=== PATIENT | female | born 1940 | race Caucasian/White ===

== ENCOUNTER 2016-09-06 19:18 | Emergency (ER) | payer MEDICARE, MEDICAID ==
--- NOTE | 2016-09-06 19:24 | EDM.PDOC ---
ED HPI GENERAL MEDICAL PROBLEM - General Chief Complaint: Abdominal Pain Stated Complaint: ABDOMINAL PAIN Time Seen by Provider: 09/06/16 19:24 - History of Present Illness INITIAL COMMENTS - FREE TEXT/NARRATIVE: 76-year-old female presents emergency room today with abdominal pain. This pain started after eating lunch today. The patient was eating a primary sandwich could not finish it just lost her appetite. Since this time she developed some abdominal discomfort. This discomfort is not associated with any nausea vomiting constipation or diarrhea. Patient a normal BM yesterday. Denies any burning or frequency with urination. She is currently treated for dyspepsia takes omeprazole daily she is not have any problems with this. Patient awoke this morning feeling just fine didn't have any problems at all through the morning. Past medical history significant for COPD diabetes type 2 hyperlipidemia hypertension. She's currently treated for dyspepsia. Past surgical history significant for a hysterectomy. He has chronic kidney disease and is followed by Dr. Monreal. Abdominal Pain Score (Numeric/FACES): 8 - Related Data Allergies Allergy/AdvReac Type Severity Reaction Status Date / Time Penicillins Allergy Rash Verified 09/06/16 19:28 Home Meds: Home Meds Albuterol/Ipratropium [DuoNeb 3.0-0.5 MG/3 ML] 1 dose INH BID 03/12/14 [History] Allopurinol [Zyloprim] 300 mg PO DAILY 03/12/14 [History] Aspirin [Ruben Chewable Aspirin] 81 mg PO DAILY 03/12/14 [History] Lisinopril 20 mg PO DAILY 03/12/14 [History] Nitroglycerin [Nitrostat] 0.4 mg PO ASDIRECTED PRN 03/12/14 [History] amLODIPine [Norvasc] 5 mg PO DAILY 03/12/14 [History] atorvaSTATin [Lipitor] 20 mg PO BEDTIME 03/12/14 [History] Atenolol [Tenormin] 50 mg PO DAILY 09/11/14 [History] Docusate Sodium [Colace] 100 mg PO BID 09/11/14 [History] Furosemide 80 mg PO DAILY 09/11/14 [History] Mometasone Furoate [Asmanex 220 MCG] 1 puff INH BID 09/11/14 [History] Omeprazole [Prilosec] 20 mg PO DAILY 09/11/14 [History] Potassium Chloride 10 meq PO DAILY 09/11/14 [History] Albuterol [Proventil HFA] 6.7 gm INH DAILY 09/19/15 [History] metFORMIN [Glucophage] 500 mg PO DAILY 09/19/15 [History] Past Medical History Other HEENT History: wears eyeglasses Cardiovascular History: Reports: CAD, High Cholesterol, Hypertension Respiratory History: Reports: COPD, Pneumonia, Recurrent Other Respiratory History: Has oxygen at home at night - 1.5 L per NC. 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: Musculoskeletal History: Reports: Gout Other Musculoskeletal History: sciatica Psychiatric History: Reports: Anxiety, Depression Endocrine/Metabolic History: Reports: Diabetes, Type II, Obesity/BMI 30+ Dermatologic History: Reports: Eczema Other Dermatologic History: eczema - Past Surgical History HEENT Surgical History: Reports: Cataract Surgery Cardiovascular Surgical History: Reports: Coronary Artery Stent, Percutaneous Transluminal Angioplasty GI Surgical History: Reports: Colonoscopy, Hernia Repair/Other Musculoskeletal Surgical History: Reports: Carpal Tunnel Social & Family History - Tobacco Use Smoking Status *Q: Former Smoker Years of Tobacco use: 30 Packs/Tins Daily: 1 Used Tobacco, but Quit: Yes Month Tobacco Last Used: 1999 Second Hand Smoke Exposure: No - Recreational Drug Use Recreational Drug Use: No - Living Situation & Occupation Living situation: Reports: , Alone Occupation: Retired ED ROS GENERAL - Review of Systems Review Of Systems: See Below Constitutional: Reports: No Symptoms. Denies: Fever, Chills HEENT: Reports: No Symptoms Respiratory: Reports: No Symptoms Cardiovascular: Reports: No Symptoms GI/Abdominal: Reports: Abdominal Pain. Denies: Constipation, Diarrhea, Nausea, Vomiting : Reports: No Symptoms Musculoskeletal: Reports: No Symptoms Skin: Reports: No Symptoms Neurological: Reports: No Symptoms Psychiatric: Reports: No Symptoms ED EXAM, GI/ABD - Physical Exam Exam: See Below Exam Limited By: No Limitations General Appearance: Alert, No Apparent Distress Head: Atraumatic, Normocephalic Neck: Normal Inspection, Supple, Non-Tender, Full Range of Motion Respiratory/Chest: No Respiratory Distress, Lungs Clear, Normal Breath Sounds Cardiovascular: Regular Rate, Rhythm, No Edema, No Murmur GI/Abdominal Exam: Normal Bowel Sounds, Soft, Other (On exam patient has lower quadrant and suprapubic discomfort bilaterally minimal upper quadrant discomfort ). No: Guarding, Rigid, Rebound, Tender Back Exam: Normal Inspection. No: CVA Tenderness (L), CVA Tenderness (R) Extremities: Normal Inspection, No Pedal Edema Neurological: Alert, Oriented, Normal Cognition Psychiatric: Normal Affect, Normal Mood Skin Exam: Warm, Dry, Intact Course - Vital Signs Last Recorded V/S: Last Vital Signs Temp 36.9 C 09/06/16 19:25 Pulse 58 L 09/06/16 19:25 Resp 18 09/06/16 19:25 BP 167/73 H 09/06/16 19:25 Pulse Ox 96 09/06/16 19:25 - Orders/Labs/Meds Orders: Active Orders 24 hr Category Date Time Status EKG Documentation Completion [RC] STAT Care 09/06/16 19:48 Active Abdomen 2V AP Flat Upright [CR] Stat Exams 09/06/16 19:49 Taken Chest 1V Frontal [CR] Stat Exams 09/06/16 19:48 Taken Lactated Ringers [Ringers, Lactated] 1,000 ml Med 09/06/16 20:15 Active IV ASDIRECTED Medication Orders Lactated Ringer's (Ringers, Lactated) 1,000 mls @ 75 mls/hr IV ASDIRECTED ULCI Last Admin: 09/06/16 20:23 Dose: 75 mls/hr Labs: Laboratory Tests 09/06/16 09/06/16 09/06/16 Range/Units 20:15 20:15 20:15 WBC 14.11 H (3.98-10.04) K/mm3 RBC 4.73 (3.98-5.22) M/mm3 Hgb 14.0 (11.2-15.7) gm/L Hct 43.5 (34.1-44.9) % MCV 92.0 (79.4-94.8) fl MCH 29.6 (25.6-32.2) pg MCHC 32.2 (32.2-35.5) g/dl RDW Std Deviation 52.7 H (36.4-46.3) fL Plt Count 260 (182-369) K/mm3 MPV 11.1 (9.4-12.3) fl Neutrophils % (Manual) 66 H (40-60) % Band Neutrophils % 0 (0-10) % Lymphocytes % (Manual) 25 (20-40) % Atypical Lymphs % 0 % Monocytes % (Manual) 5 (2-10) % Eosinophils % (Manual) 3 (0.7-5.8) % Basophils % (Manual) 1 (0.1-1.2) Platelet Estimate Adequate Poikilocytosis 1+ slight Anisocytosis 1+ slight Ovalocytes 1+ slight RBC Morph Comment Not Reportable Sodium 141 (136-145) mEq/L Potassium 3.9 (3.5-5.1) mEq/L Chloride 104 (98-107) mEq/L Carbon Dioxide 30 (21-32) mEq/L Anion Gap 10.9 (5-15) BUN 26 H (7-18) mg/dL Creatinine 1.4 H (0.55-1.02) mg/dL Est Cr Clr Drug Dosing 31.24 mL/min Estimated GFR (MDRD) 37 (>60) mL/min BUN/Creatinine Ratio 18.6 H (14-18) Glucose 119 H (83-115) mg/dL Calcium 10.6 H (8.5-10.1) mg/dL Magnesium 1.6 L (1.8-2.4) mg/dl Total Bilirubin 0.5 (0.2-1.0) mg/dL AST 52 H (15-37) U/L ALT 52 (14-59) U/L Alkaline Phosphatase 95 (46-116) U/L Troponin I < 0.017 (0.00-0.056) ng/mL Total Protein 8.2 (6.4-8.2) g/dl Albumin 3.5 (3.4-5.0) g/dl Globulin 4.7 gm/dL Albumin/Globulin Ratio 0.7 L (1-2) Lipase 117 (73-393) U/L Urine Color (Yellow) Urine Appearance (Clear) Urine pH (5.0-8.0) Ur Specific Sears (1.005-1.030) Urine Protein (Negative) Urine Glucose (UA) (Negative) Urine Ketones (Negative) Urine Occult Blood (Negative) Urine Nitrite (Negative) Urine Bilirubin (Negative) Urine Urobilinogen (0.2-1.0) Ur Leukocyte Esterase (Negative) Urine RBC (0-5) /hpf Urine WBC (0-5) /hpf Ur Epithelial Cells (0-5) /hpf Urine Bacteria (FEW) /hpf Urine Mucus (FEW) /hpf 09/06/16 Range/Units 21:50 WBC (3.98-10.04) K/mm3 RBC (3.98-5.22) M/mm3 Hgb (11.2-15.7) gm/L Hct (34.1-44.9) % MCV (79.4-94.8) fl MCH (25.6-32.2) pg MCHC (32.2-35.5) g/dl RDW Std Deviation (36.4-46.3) fL Plt Count (182-369) K/mm3 MPV (9.4-12.3) fl Neutrophils % (Manual) (40-60) % Band Neutrophils % (0-10) % Lymphocytes % (Manual) (20-40) % Atypical Lymphs % % Monocytes % (Manual) (2-10) % Eosinophils % (Manual) (0.7-5.8) % Basophils % (Manual) (0.1-1.2) Platelet Estimate Poikilocytosis Anisocytosis Ovalocytes RBC Morph Comment Sodium (136-145) mEq/L Potassium (3.5-5.1) mEq/L Chloride (98-107) mEq/L Carbon Dioxide (21-32) mEq/L Anion Gap (5-15) BUN (7-18) mg/dL Creatinine (0.55-1.02) mg/dL Est Cr Clr Drug Dosing mL/min Estimated GFR (MDRD) (>60) mL/min BUN/Creatinine Ratio (14-18) Glucose (83-115) mg/dL Calcium (8.5-10.1) mg/dL Magnesium (1.8-2.4) mg/dl Total Bilirubin (0.2-1.0) mg/dL AST (15-37) U/L ALT (14-59) U/L Alkaline Phosphatase (46-116) U/L Troponin I (0.00-0.056) ng/mL Total Protein (6.4-8.2) g/dl Albumin (3.4-5.0) g/dl Globulin gm/dL Albumin/Globulin Ratio (1-2) Lipase (73-393) U/L Urine Color Yellow (Yellow) Urine Appearance Clear (Clear) Urine pH 5.5 (5.0-8.0) Ur Specific Sears 1.015 (1.005-1.030) Urine Protein Negative (Negative) Urine Glucose (UA) Negative (Negative) Urine Ketones Negative (Negative) Urine Occult Blood Negative (Negative) Urine Nitrite Negative (Negative) Urine Bilirubin Negative (Negative) Urine Urobilinogen 0.2 (0.2-1.0) Ur Leukocyte Esterase Negative (Negative) Urine RBC 0-5 (0-5) /hpf Urine WBC 0-5 (0-5) /hpf Ur Epithelial Cells 5-10 H (0-5) /hpf Urine Bacteria Few (FEW) /hpf Urine Mucus Few (FEW) /hpf Meds: Medications Generic Name Dose Route Start Last Admin Trade Name Freq PRN Reason Stop Dose Admin Lactated Ringer's 1,000 mls @ 75 mls/hr 09/06/16 20:15 09/06/16 20:23 Ringers, Lactated IV 75 mls/hr ASDIRECTED LUCI Administration Discontinued Medications Generic Name Dose Route Start Last Admin Trade Name Freq PRN Reason Stop Dose Admin Hydromorphone HCl 0.25 mg 09/06/16 20:04 09/06/16 20:26 Dilaudid IVPUSH 09/06/16 20:05 0.25 mg ONETIME ONE Administration Ondansetron HCl 4 mg 09/06/16 20:04 09/06/16 20:24 Zofran IVPUSH 09/06/16 20:05 4 mg ONETIME ONE Administration - Re-Assessments/Exams Free Text/Narrative Re-Assessment/Exam: 09/06/16 21:40 Labs nondiagnostic white count slightly elevated at 14,000 no bandemia. Patient had one emesis and is felt much better ever since then she is pain-free at this time awaiting urinalysis. 09/06/16 22:49 Her abdominal pain has not returned urinalysis looks good. We will discharge home. Departure - Departure Time of Disposition: 22:50 Disposition: Home, Self-Care 01 Clinical Impression: Resolved abdominal pain - Discharge Information Additional Instructions: Return to the emergency room with any questions or problems or worsening symptoms. Clear liquid diet for the next 12 hours then slowly advance as tolerated. Return to the emergency room if getting worse or not completely better in 12-24 hours - My Orders Last 24 Hours: My Active Orders 09/06/16 19:48 EKG Documentation Completion [RC] STAT Chest 1V Frontal [CR] Stat 09/06/16 19:49 Abdomen 2V AP Flat Upright [CR] Stat 09/06/16 20:15 Lactated Ringers [Ringers, Lactated] 1,000 ml IV ASDIRECTED - Assessment/Plan Last 24 Hours: My Active Orders 09/06/16 19:48 EKG Documentation Completion [RC] STAT Chest 1V Frontal [CR] Stat 09/06/16 19:49 Abdomen 2V AP Flat Upright [CR] Stat 09/06/16 20:15 Lactated Ringers [Ringers, Lactated] 1,000 ml IV ASDIRECTED
[2016-09-06 19:28] VITALS: BP 167/73
[2016-09-06] MEDS ORDERED: HYDROmorphone 1 MG/ML Syringe IVPUSH ONE (20:04)
[2016-09-06] MEDS ORDERED: Ondansetron 4 MG/2 ML SDV IVPUSH ONE (20:04)
[2016-09-06] MEDS ORDERED: Lactated Ringers 1,000 ML IV SCH (20:15)
--- NOTE | 2016-09-07 07:38 | CR ---
Abdomen: Supine and upright views of the abdomen were obtained. Comparison: Previous abdominal series of 09/19/11. Scoliosis and degenerative change is noted within the spine. Vascular calcification is seen. Slight degenerative sclerosis is noted within the left sacroiliac joint. Bowel gas pattern appears normal. No free air is seen. No discrete soft tissue abnormality is appreciated. Small hiatal hernia is seen. Impression: 1. Incidental findings. Nothing acute is identified. Diagnostic code #2
--- NOTE | 2016-09-07 07:38 | CR ---
Chest: Frontal view of the chest was obtained. Comparison: Previous chest x-ray of 09/19/15. Heart size is normal. Tortuous thoracic aorta is seen. Small hiatal hernia is noted. Lungs are clear with no acute infiltrates. Bony structures are grossly intact. Impression: 1. Findings as noted above. Nothing acute is seen on frontal chest x-ray. Diagnostic code #2
== END 2016-09-06 23:10 | disposition home or self-care (01) ==
LOC: JD.ED 19:18
DX: R10.10 Upper abdominal pain, unspecified (principal); R10.30 Lower abdominal pain, unspecified; E11.9 Type 2 diabetes mellitus without complications; I10 Essential (primary) hypertension; I25.10 Atherosclerotic heart disease of native coronary artery without angina pectoris; K21.9 Gastro-esophageal reflux disease without esophagitis; I12.9 Hypertensive chronic kidney disease with stage 1 through stage 4 chronic kidney disease, or unspecified chronic kidney disease; N18.9 Chronic kidney disease, unspecified; F41.9 Anxiety disorder, unspecified; F32.9 Major depressive disorder, single episode, unspecified; E66.9 Obesity, unspecified; Z79.82 Long term (current) use of aspirin; Z79.84 Long term (current) use of oral hypoglycemic drugs; Z88.0 Allergy status to penicillin; Z87.01 Personal history of pneumonia (recurrent); Z79.899 Other long term (current) drug therapy; Z87.891 Personal history of nicotine dependence; J44.9 Chronic obstructive pulmonary disease, unspecified
CPT/HCPCS: 36415; 71010; 74020; 80053; 81001; 83690; 83735; 84484; 85025; 93005; 96361; 96374; 96375; 99284; J1170; J2405; J7120

== ENCOUNTER 2017-04-17 18:01 | Inpatient (IN) | payer MEDICARE, MEDICAID ==
[2017-04-17] MEDS ORDERED: Sodium Chloride 0.9% 10 ML Syringe FLUSH PRN (18:28)
[2017-04-17] MEDS ORDERED: Albuterol/Ipratropium 3.0-0.5 MG/3 ML Neb Soln NEB ONE (18:49)
[2017-04-17] MEDS ORDERED: Albuterol/Ipratropium 3.0-0.5 MG/3 ML Neb Soln ONE (18:57)
--- NOTE | 2017-04-17 19:43 | EDM.PDOC ---
ED HPI GENERAL MEDICAL PROBLEM - General Chief Complaint: Respiratory Problem Stated Complaint: [facility] Time Seen by Provider: 04/17/17 18:27 Source of Information: Reports: Patient, EMS, RN Notes Reviewed - History of Present Illness INITIAL COMMENTS - FREE TEXT/NARRATIVE: 76 year lady brought to ED by EMS for evaluation of worsening cough that started about 4 days ago, increased difficulty breathing, hypoxia associated with generalized weakness. Has also had decreased appetite, nausea, has vomited at least once today. Hx of COPD, normally uses oxygen at night and with activity. Now short of breath even with the oxygen. No chest or abd pain at this time. Cough has been mostly nonprod. - Related Data Allergies Allergy/AdvReac Type Severity Reaction Status Date / Time Penicillins Allergy Swelling Verified 04/18/17 00:37 Home Meds: Home Meds Albuterol/Ipratropium [DuoNeb 3.0-0.5 MG/3 ML] 1 dose INH BID 03/12/14 [History] Allopurinol [Zyloprim] 300 mg PO DAILY 03/12/14 [History] Aspirin [Ruben Chewable Aspirin] 81 mg PO DAILY 03/12/14 [History] Lisinopril 20 mg PO DAILY 03/12/14 [History] Nitroglycerin [Nitrostat] 0.4 mg PO ASDIRECTED PRN 03/12/14 [History] amLODIPine [Norvasc] 5 mg PO DAILY 03/12/14 [History] atorvaSTATin [Lipitor] 40 mg PO BEDTIME 03/12/14 [History] Docusate Sodium [Colace] 100 mg PO BID 09/11/14 [History] Furosemide 40 mg PO DAILY 09/11/14 [History] Mometasone Furoate [Asmanex 220 MCG] 1 puff INH BID 09/11/14 [History] Potassium Chloride 10 meq PO DAILY 09/11/14 [History] metFORMIN [Glucophage] 500 mg PO DAILY 09/19/15 [History] Atenolol [Tenormin] 50 mg PO DAILY 04/17/17 [History] Cholecalciferol (Vitamin D3) [Vitamin D3] 1,000 mg PO DAILY 04/17/17 [History] Esomeprazole Magnesium [Nexium] 20 mg PO DAILY 04/17/17 [History] Sertraline [Zoloft] 25 mg PO DAILY 04/17/17 [History] Albuterol [Proventil HFA] 2 puff INH Q6H PRN 04/18/17 [History] Past Medical History Other HEENT History: wears eyeglasses Cardiovascular History: Reports: Angina, CAD, High Cholesterol, Hypertension Respiratory History: Reports: COPD, Pneumonia, Recurrent Other Respiratory History: Has oxygen at home at night - 2 L per NC. Gastrointestinal History: Reports: GERD, Irritable Bowel Syndrome Genitourinary History: Reports: Chronic Renal Insuffiency Other Genitourinary History: renal disease [employer] History: Reports: Other OB/BYN History: hysterectomy Musculoskeletal History: Reports: Arthritis, Gout Other Musculoskeletal History: sciatica Psychiatric History: Reports: Anxiety, Depression Endocrine/Metabolic History: Reports: Diabetes, Type II, Obesity/BMI 30+ Dermatologic History: Reports: Eczema Other Dermatologic History: eczema - Infectious Disease History Infectious Disease History: Reports: Influenza - Past Surgical History HEENT Surgical History: Reports: Cataract Surgery Cardiovascular Surgical History: Reports: Coronary Artery Stent, Percutaneous Transluminal Angioplasty GI Surgical History: Reports: Colonoscopy, Hernia Repair/Other Musculoskeletal Surgical History: Reports: Carpal Tunnel Social & Family History - Family History Family Medical History: Noncontributory - Tobacco Use Smoking Status *Q: Former Smoker Years of Tobacco use: 20 Packs/Tins Daily: 1 Used Tobacco, but Quit: Yes Month/Year Tobacco Last Used: 1989 Second Hand Smoke Exposure: No - Caffeine Use Caffeine Use: Reports: Coffee - Recreational Drug Use Recreational Drug Use: No - Living Situation & Occupation Living situation: Reports: , Alone Occupation: Retired ED ROS GENERAL - Review of Systems Review Of Systems: See Below Constitutional: Reports: Fever, Chills. Denies: Diaphoresis HEENT: Denies: Sinus Problem, Throat Pain Respiratory: Reports: Shortness of Breath, Wheezing ED EXAM, GENERAL - Physical Exam Exam: See Below General Appearance: Alert, Mild Distress Eye Exam: Bilateral Eye: PERRL Throat/Mouth: Normal Inspection, Normal Oropharynx Head: Atraumatic. No: Facial Swelling Neck: Supple, Full Range of Motion Respiratory/Chest: Respiratory Distress (moderate tachypnea). No: Rales, Rhonchi, Wheezing Cardiovascular: Regular Rate, Rhythm GI/Abdominal: Soft, Non-Tender Extremities: Normal Inspection. No: Leg Pain, Increased Warmth, Redness Neurological: Oriented, No Motor/Sensory Deficits Skin Exam: Warm, Dry, Normal Color, No Rash EKG INTERPRETATION EKG Date: 04/17/17 Rhythm: Other (Sinus rythm with vent. trigeminy) Rate (Beats/Min): 71 P-Wave: Present QRS: Other (conduction delay with q 3 PVC's) ST-T: Other (t wave inversion anterior leads) Course - Vital Signs Last Recorded V/S: Last Vital Signs Temp 98.2 F 04/20/17 08:37 Pulse 89 04/20/17 08:37 Resp 16 04/20/17 08:37 BP 115/85 04/20/17 08:37 Pulse Ox 97 04/20/17 09:36 - Orders/Labs/Meds Orders: Medication Orders Acetaminophen (Tylenol) 650 mg PO Q6H PRN PRN Reason: Pain/Fever Last Admin: 04/18/17 11:34 Dose: 650 mg Albuterol (Proventil Neb Soln) 2.5 mg NEB Q4HRRT PRN PRN Reason: Shortness of Breath Last Admin: 04/18/17 04:23 Dose: 2.5 mg Albuterol/Ipratropium (Duoneb 3.0-0.5 Mg/3 Ml) 3 ml NEB QIDRT [facility] Last Admin: 04/20/17 09:34 Dose: 3 ml Admin: 04/20/17 05:37 Dose: 3 ml Admin: 04/19/17 20:17 Dose: 3 ml Admin: 04/19/17 15:37 Dose: 3 ml Admin: 04/19/17 10:27 Dose: 3 ml Admin: 04/19/17 06:15 Dose: 3 ml Admin: 04/18/17 21:01 Dose: 3 ml Admin: 04/18/17 16:22 Dose: 3 ml Admin: 04/18/17 09:56 Dose: 3 ml Admin: 04/18/17 06:36 Dose: 3 ml Admin: 04/17/17 23:19 Dose: 3 ml Allopurinol (Zyloprim) 300 mg PO DAILY [facility] Last Admin: 04/20/17 08:44 Dose: 300 mg Amlodipine Besylate (Norvasc) 5 mg PO DAILY [facility] Last Admin: 04/20/17 08:44 Dose: 5 mg Aspirin (Aspirin) 81 mg PO DAILY [facility] Last Admin: 04/20/17 08:44 Dose: 81 mg Atenolol (Tenormin) 50 mg PO DAILY [facility] Last Admin: 04/20/17 08:43 Dose: 50 mg Calcium Carbonate/Glycine (Tums) 1,000 mg PO Q4H PRN PRN Reason: Indigestion Last Admin: 04/20/17 08:40 Dose: 1,000 mg Dextrose/Water (Dextrose 50% In Water) 50 ml IVPUSH ASDIRECTED PRN PRN Reason: Hypoglycemia Docusate Sodium (Colace) 100 mg PO BID [facility] Last Admin: 04/20/17 08:44 Dose: 100 mg Admin: 04/19/17 22:16 Dose: 100 mg Admin: 04/19/17 09:44 Dose: 100 mg Admin: 04/18/17 21:52 Dose: 100 mg Admin: 04/18/17 11:23 Dose: 100 mg Doxycycline Hyclate (Vibramycin) 100 mg PO Q12H [facility] Last Admin: 04/19/17 22:16 Dose: 100 mg Admin: 04/19/17 10:09 Dose: 100 mg Admin: 04/18/17 21:59 Dose: 100 mg Admin: 04/18/17 11:24 Dose: 100 mg Hydralazine HCl (Apresoline) 20 mg IVPUSH Q4H PRN PRN Reason: Hypertension Last Admin: 04/20/17 03:56 Dose: 20 mg Insulin Aspart (Novolog) 0 unit SUBCUT QIDACANDBED [facility] PRN Reason: Protocol Last Admin: 04/20/17 08:39 Dose: 1 units Admin: 04/19/17 22:16 Dose: 4 units Lorazepam (Ativan) 2 mg IVPUSH Q4H PRN PRN Reason: Seizures Magnesium Sulfate (Pharmacy To Dose - Magnesium Replacement) 1 dose .XX ASDIRECTED [facility] Metformin HCl (Glucophage) 500 mg PO WITHBREAKFAST [facility] Last Admin: 04/20/17 07:10 Dose: 500 mg Admin: 04/19/17 06:01 Dose: 500 mg Admin: 04/18/17 11:23 Dose: 500 mg Methylprednisolone Sodium Succinate (Solu-Medrol) 40 mg IVPUSH Q12H [facility] Last Admin: 04/20/17 04:01 Dose: 40 mg Metoclopramide HCl (Reglan) 5 mg IVPUSH Q6H PRN PRN Reason: Nausea Last Admin: 04/19/17 01:06 Dose: 5 mg Metoprolol Tartrate (Lopressor) 5 mg IVPUSH Q4H PRN PRN Reason: Tachycardia Miscellaneous Information (Remove Patch) 0 ea TRDERM Q72H [facility] Mometasone Furoate (Asmanex 220 Mcg) 1 puff INH BIDRT [facility] Last Admin: 04/20/17 05:37 Dose: 1 puff Admin: 04/19/17 20:18 Dose: 1 puff Admin: 04/19/17 06:15 Dose: 1 puff Admin: 04/18/17 21:01 Dose: 1 puff Admin: 04/18/17 06:36 Dose: 1 puff Nitroglycerin (Nitrostat) 0.4 mg SL ASDIRECTED PRN PRN Reason: Chest Pain Ondansetron HCl (Zofran) 4 mg IVPUSH Q4H PRN PRN Reason: Nausea Last Admin: 04/18/17 23:53 Dose: 4 mg Admin: 04/18/17 02:42 Dose: 4 mg Pantoprazole Sodium (Protonix) 40 mg PO DAILY@0700 [facility] Last Admin: 04/20/17 07:10 Dose: 40 mg Admin: 04/19/17 06:01 Dose: 40 mg Admin: 04/18/17 06:37 Dose: 40 mg Potassium Chloride (Klor-Con 10) 10 meq PO DAILY [facility] Last Admin: 04/20/17 08:44 Dose: 10 meq Admin: 04/19/17 09:44 Dose: 10 meq Admin: 04/18/17 11:24 Dose: 10 meq Potassium Chloride (Pharmacy To Dose - Potassium Replacement) 1 dose .XX ASDIRECTED [facility] Scopolamine (Scopolamine) 1 each TRDERM Q72H PRN PRN Reason: Nausea Last Admin: 04/18/17 13:11 Dose: 1 each Sertraline HCl (Zoloft) 25 mg PO DAILY [facility] Last Admin: 04/20/17 08:44 Dose: 25 mg Admin: 04/19/17 09:45 Dose: 25 mg Admin: 04/18/17 11:25 Dose: 25 mg Sodium Chloride (Saline Flush) 10 ml FLUSH ASDIRECTED PRN PRN Reason: Keep Vein Open Last Admin: 04/17/17 20:14 Dose: 10 ml Temazepam (Restoril) 7.5 mg PO BEDTIME PRN PRN Reason: Insomnia Labs: Laboratory Tests 04/17/17 04/17/17 04/17/17 Range/Units 18:44 18:44 18:44 WBC 12.16 H (3.98-10.04) K/mm3 RBC 4.29 (3.98-5.22) M/mm3 Hgb 12.4 (11.2-15.7) gm/L Hct 39.7 (34.1-44.9) % MCV 92.5 (79.4-94.8) fl MCH 28.9 (25.6-32.2) pg MCHC 31.2 L (32.2-35.5) g/dl RDW Std Deviation 53.9 H (36.4-46.3) fL Plt Count 226 (182-369) K/mm3 MPV 10.8 (9.4-12.3) fl Neutrophils % (Manual) 81 H (40-60) % Band Neutrophils % 0 (0-10) % Lymphocytes % (Manual) 11 L (20-40) % Atypical Lymphs % 0 % Monocytes % (Manual) 7 (2-10) % Eosinophils % (Manual) 1 (0.7-5.8) % Basophils % (Manual) 0 L (0.1-1.2) Platelet Estimate Adequate RBC Morph Comment Normal Sodium 141 (136-145) mEq/L Potassium 4.4 (3.5-5.1) mEq/L Chloride 105 (98-107) mEq/L Carbon Dioxide 29 (21-32) mEq/L Anion Gap 11.4 (5-15) BUN 24 H (7-18) mg/dL Creatinine 1.4 H (0.55-1.02) mg/dL Est Cr Clr Drug Dosing 31.24 mL/min Estimated GFR (MDRD) 37 (>60) mL/min BUN/Creatinine Ratio 17.1 (14-18) Glucose 135 H (83-115) mg/dL Lactic Acid 1.4 (0.4-2.0) mmol/L Calcium 9.8 (8.5-10.1) mg/dL Magnesium (1.8-2.4) mg/dl Total Bilirubin 0.4 (0.2-1.0) mg/dL AST 28 (15-37) U/L ALT 24 (14-59) U/L Alkaline Phosphatase 52 (46-116) U/L Troponin I < 0.017 (0.00-0.056) ng/mL C-Reactive Protein (<1.0) mg/dL NT-Pro-B Natriuret Pep (0-450) pg/mL Total Protein 7.2 (6.4-8.2) g/dl Albumin 2.9 L (3.4-5.0) g/dl Globulin 4.3 gm/dL Albumin/Globulin Ratio 0.7 L (1-2) Mycoplasma pneumon IgM (NEGATIVE) 04/17/17 04/17/17 04/17/17 Range/Units 18:44 18:44 18:44 WBC (3.98-10.04) K/mm3 RBC (3.98-5.22) M/mm3 Hgb (11.2-15.7) gm/L Hct (34.1-44.9) % MCV (79.4-94.8) fl MCH (25.6-32.2) pg MCHC (32.2-35.5) g/dl RDW Std Deviation (36.4-46.3) fL Plt Count (182-369) K/mm3 MPV (9.4-12.3) fl Neutrophils % (Manual) (40-60) % Band Neutrophils % (0-10) % Lymphocytes % (Manual) (20-40) % Atypical Lymphs % % Monocytes % (Manual) (2-10) % Eosinophils % (Manual) (0.7-5.8) % Basophils % (Manual) (0.1-1.2) Platelet Estimate RBC Morph Comment Sodium (136-145) mEq/L Potassium (3.5-5.1) mEq/L Chloride (98-107) mEq/L Carbon Dioxide (21-32) mEq/L Anion Gap (5-15) BUN (7-18) mg/dL Creatinine (0.55-1.02) mg/dL Est Cr Clr Drug Dosing mL/min Estimated GFR (MDRD) (>60) mL/min BUN/Creatinine Ratio (14-18) Glucose (83-115) mg/dL Lactic Acid (0.4-2.0) mmol/L Calcium (8.5-10.1) mg/dL Magnesium (1.8-2.4) mg/dl Total Bilirubin (0.2-1.0) mg/dL AST (15-37) U/L ALT (14-59) U/L Alkaline Phosphatase (46-116) U/L Troponin I (0.00-0.056) ng/mL C-Reactive Protein 3.4 H* (<1.0) mg/dL NT-Pro-B Natriuret Pep 3283 H (0-450) pg/mL Total Protein (6.4-8.2) g/dl Albumin (3.4-5.0) g/dl Globulin gm/dL Albumin/Globulin Ratio (1-2) Mycoplasma pneumon IgM Positive H (NEGATIVE) 04/17/17 Range/Units 18:44 WBC (3.98-10.04) K/mm3 RBC (3.98-5.22) M/mm3 Hgb (11.2-15.7) gm/L Hct (34.1-44.9) % MCV (79.4-94.8) fl MCH (25.6-32.2) pg MCHC (32.2-35.5) g/dl RDW Std Deviation (36.4-46.3) fL Plt Count (182-369) K/mm3 MPV (9.4-12.3) fl Neutrophils % (Manual) (40-60) % Band Neutrophils % (0-10) % Lymphocytes % (Manual) (20-40) % Atypical Lymphs % % Monocytes % (Manual) (2-10) % Eosinophils % (Manual) (0.7-5.8) % Basophils % (Manual) (0.1-1.2) Platelet Estimate RBC Morph Comment Sodium (136-145) mEq/L Potassium (3.5-5.1) mEq/L Chloride (98-107) mEq/L Carbon Dioxide (21-32) mEq/L Anion Gap (5-15) BUN (7-18) mg/dL Creatinine (0.55-1.02) mg/dL Est Cr Clr Drug Dosing mL/min Estimated GFR (MDRD) (>60) mL/min BUN/Creatinine Ratio (14-18) Glucose (83-115) mg/dL Lactic Acid (0.4-2.0) mmol/L Calcium (8.5-10.1) mg/dL Magnesium 1.6 L (1.8-2.4) mg/dl Total Bilirubin (0.2-1.0) mg/dL AST (15-37) U/L ALT (14-59) U/L Alkaline Phosphatase (46-116) U/L Troponin I (0.00-0.056) ng/mL C-Reactive Protein (<1.0) mg/dL NT-Pro-B Natriuret Pep (0-450) pg/mL Total Protein (6.4-8.2) g/dl Albumin (3.4-5.0) g/dl Globulin gm/dL Albumin/Globulin Ratio (1-2) Mycoplasma pneumon IgM (NEGATIVE) Meds: Medications Generic Name Dose Route Start Last Admin Trade Name Freq PRN Reason Stop Dose Admin Acetaminophen 650 mg 04/17/17 22:18 04/18/17 11:34 Tylenol PO 650 mg Q6H PRN Administration Pain/Fever Albuterol 2.5 mg 04/17/17 22:17 04/18/17 04:23 Proventil Neb Soln NEB 2.5 mg Q4HRRT PRN Administration Shortness of Breath Albuterol/Ipratropium 3 ml 04/17/17 23:11 04/20/17 09:34 Duoneb 3.0-0.5 Mg/3 Ml NEB 3 ml QIDRT [facility] Administration Allopurinol 300 mg 04/20/17 09:00 04/20/17 08:44 Zyloprim PO 300 mg DAILY [facility] Administration Amlodipine Besylate 5 mg 04/20/17 09:00 04/20/17 08:44 Norvasc PO 5 mg DAILY [facility] Administration Aspirin 81 mg 04/20/17 09:00 04/20/17 08:44 Aspirin PO 81 mg DAILY [facility] Administration Atenolol 50 mg 04/20/17 09:00 04/20/17 08:43 Tenormin PO 50 mg DAILY [facility] Administration Calcium Carbonate/Glycine 1,000 mg 04/20/17 08:15 04/20/17 08:40 Tums PO 1,000 mg Q4H PRN Administration Indigestion Dextrose/Water 50 ml 04/17/17 22:20 Dextrose 50% In Water IVPUSH ASDIRECTED PRN Hypoglycemia Docusate Sodium 100 mg 04/18/17 09:00 04/20/17 08:44 Colace PO 100 mg BID [facility] Administration Doxycycline Hyclate 100 mg 04/18/17 11:00 04/19/17 22:16 Vibramycin PO 100 mg Q12H [facility] Administration Hydralazine HCl 20 mg 04/19/17 00:52 04/20/17 03:56 Apresoline IVPUSH 20 mg Q4H PRN Administration Hypertension Insulin Aspart 0 unit 04/19/17 22:00 04/20/17 08:39 Novolog SUBCUT 1 units QIDACANDBED [facility] Administration Protocol Lorazepam 2 mg 04/19/17 00:52 Ativan IVPUSH Q4H PRN Seizures Magnesium Sulfate 1 dose 04/19/17 01:00 Pharmacy To Dose - Magnesium Replacement .XX ASDIRECTED [facility] Metformin HCl 500 mg 04/18/17 07:00 04/20/17 07:10 Glucophage PO 500 mg WITHBREAKFAST [facility] Administration Methylprednisolone Sodium Succinate 40 mg 04/20/17 05:00 04/20/17 04:01 Solu-Medrol IVPUSH 40 mg Q12H [facility] Administration Metoclopramide HCl 5 mg 04/19/17 00:51 04/19/17 01:06 Reglan IVPUSH 5 mg Q6H PRN Administration Nausea Metoprolol Tartrate 5 mg 04/19/17 00:52 Lopressor IVPUSH Q4H PRN Tachycardia Miscellaneous Information 0 ea 04/21/17 13:00 Remove Patch TRDERM Q72H [facility] Mometasone Furoate 1 puff 04/18/17 06:00 04/20/17 05:37 Asmanex 220 Mcg INH 1 puff BIDRT [facility] Administration Nitroglycerin 0.4 mg 04/17/17 22:04 Nitrostat SL ASDIRECTED PRN Chest Pain Ondansetron HCl 4 mg 04/18/17 02:24 04/18/17 23:53 Zofran IVPUSH 4 mg Q4H PRN Administration Nausea Pantoprazole Sodium 40 mg 04/18/17 07:00 04/20/17 07:10 Protonix PO 40 mg DAILY@0700 [facility] Administration Potassium Chloride 10 meq 04/18/17 09:00 04/20/17 08:44 Klor-Con 10 PO 10 meq DAILY [facility] Administration Potassium Chloride 1 dose 04/19/17 01:00 Pharmacy To Dose - Potassium Replacement .XX ASDIRECTED [facility] Scopolamine 1 each 04/18/17 12:51 04/18/17 13:11 Scopolamine TRDERM 1 each Q72H PRN Administration Nausea Sertraline HCl 25 mg 04/18/17 09:00 04/20/17 08:44 Zoloft PO 25 mg DAILY [facility] Administration Sodium Chloride 10 ml 04/17/17 18:28 04/17/17 20:14 Saline Flush FLUSH 10 ml ASDIRECTED PRN Administration Keep Vein Open Temazepam 7.5 mg 04/17/17 22:17 Restoril PO BEDTIME PRN Insomnia Discontinued Medications Generic Name Dose Route Start Last Admin Trade Name Freq PRN Reason Stop Dose Admin Acetaminophen 975 mg 04/17/17 20:10 04/17/17 20:14 Tylenol PO 04/17/17 20:11 975 mg NOW ONE Administration Albuterol/Ipratropium 3 ml 04/17/17 18:49 04/17/17 18:54 Duoneb 3.0-0.5 Mg/3 Ml NEB 04/17/17 18:50 3 ml ONETIME ONE Administration Albuterol/Ipratropium Confirm 04/17/17 18:57 04/17/17 18:54 Duoneb 3.0-0.5 Mg/3 Ml Administered 04/17/17 18:58 Not Given Dose 3 ml .ROUTE .STK-MED ONE Albuterol/Ipratropium 3 ml 04/18/17 23:00 Duoneb 3.0-0.5 Mg/3 Ml [facility] QIDRT [facility] Doxycycline Hyclate Confirm 04/18/17 00:02 04/18/17 03:06 Vibramycin Administered 04/18/17 00:03 Not Given Dose 100 mg .ROUTE .STK-MED ONE Furosemide 20 mg 04/18/17 07:00 04/18/17 06:38 Lasix IVPUSH 04/18/17 07:01 20 mg ONETIME ONE Administration Hydralazine HCl 20 mg 04/17/17 22:23 Apresoline IVPUSH Q6H PRN Hypertension Levofloxacin/Dextrose 750 mg/ 150 mls @ 100 mls/hr 04/17/17 20:05 04/17/17 20 :11 Premix IV 04/17/17 21:34 100 mls/hr ONETIME ONE Administration Doxycycline Hyclate 100 mg/ 100 mls @ 100 mls/hr 04/17/17 23:00 04/18/17 11: 26 Sodium Chloride IV Not Given Q12HR [facility] Sodium Chloride 1,000 mls @ 100 mls/hr 04/17/17 22:30 04/18/17 00:19 Sodium Chloride 0.45% IV 04/18/17 10:30 100 mls/hr ASDIRECTED [facility] Administration Magnesium Sulfate 2 gm/ Premix 50 mls @ 25 mls/hr 04/19/17 00:52 04/19/17 01: 07 IV 04/19/17 02:51 25 mls/hr ONETIME ONE Administration Methylprednisolone Sodium Succinate 40 mg 04/19/17 01:00 04/19/17 17:11 Solu-Medrol IVPUSH 40 mg Q8H [facility] Administration Metoclopramide HCl 5 mg 04/18/17 08:15 04/18/17 13:18 Reglan IVPUSH 5 mg Q6H [facility] Administration Nitroglycerin 2.5 mg 04/20/17 08:25 04/20/17 08:43 Nitroglycerin PO 04/20/17 08:26 2.5 mg ONETIME ONE Administration Non-Formulary Medication 20 mg 04/18/17 09:00 Omeprazole PO DAILY [facility] Potassium Chloride 40 meq 04/19/17 01:15 04/19/17 01:19 Klor-Con M20 PO 04/19/17 01:16 40 meq ONETIME ONE Administration Potassium Chloride 20 meq 04/19/17 06:00 04/19/17 06:01 Klor-Con M20 PO 04/19/17 06:01 20 meq ONETIME ONE Administration - Re-Assessments/Exams Free Text/Narrative Re-Assessment/Exam: 04/17/17 20:03. Patient has small infiltrate developing RLL, rectal temp 102.6. O2 sats 87 % room air, low to mid 90's with 02 at 2 L NC. She feels less short of breath after Duoneb., she is type 2 diabetic, will hold off on steroids for now, blood culture times 1 obtained, WBC mildly elevated, will give tylenol, will start levaquin 750 mg IV. 04/17/17 20:09 Departure - Departure Time of Disposition: 19:55 Disposition: Admitted As Inpatient 67 Condition: Serious Clinical Impression: Hypoxia Pneumonia Qualifiers: Pneumonia type: due to unspecified organism Laterality: right Lung location: lower lobe of lung Qualified Code(s): J18.1 - Lobar pneumonia, unspecified organism - Discharge Information ED Communication - Discussed Case With (1) Discussed Case With (1): Admitting Provider (Dr Del Real, decision to admit at about 19:55.)
[2017-04-17] MEDS ORDERED: Levofloxacin/Dextrose 5%-Water 750 MG in Premix Bag 1 BAG IV ONE (20:05)
[2017-04-17] MEDS ORDERED: Acetaminophen 325 MG Tab PO ONE (20:10)
[2017-04-17] MEDS ORDERED: Nitroglycerin 0.4 MG Tab.SL SL PRN (22:04)
--- NOTE | 2017-04-17 22:07 | PCM.HP ---
H&P History of Present Illness - General Date of Service: 04/17/17 Source of Information: Family, Provider History Limitations: Reports: No Limitations - History of Present Illness Initial Comments - Free Text/Narative: 76 year old female with oxygen requirement, former tobacco use presents with cough with green sputum. Admits to fever and chills; has had nausea and vomiting for 3-4 days [employer]. Longstanding history includes COPD, she requires oxygen at night. Presumptive diagnosis is PNA, initial CXR is unremarkable. Labs pending: influenza and mycoplasma. Onset of Symptoms: Reports: Gradual Symptom Onset Date: 04/13/17 Duration of Symptoms: Reports: Day(s):, Getting Worse Location: Reports: Chest, Generalized Severity: Moderate Improves with: Reports: Medication Worsens with: Reports: None Context: Reports: Sick Contact (unknown) Associated Symptoms: Reports: Chest Pain, cough w sputum, Loss of Appetite, Malaise, Nausea/Vomiting, Shortness of Breath, Weakness - Related Data Allergies/Adverse Reactions: Allergies Allergy/AdvReac Type Severity Reaction Status Date / Time Penicillins Allergy Swelling Verified 04/18/17 00:37 Home Medications: Home Meds Albuterol/Ipratropium [DuoNeb 3.0-0.5 MG/3 ML] 1 dose INH BID 03/12/14 [History] Allopurinol [Zyloprim] 300 mg PO DAILY 03/12/14 [History] Aspirin [Ruben Chewable Aspirin] 81 mg PO DAILY 03/12/14 [History] Lisinopril 20 mg PO DAILY 03/12/14 [History] Nitroglycerin [Nitrostat] 0.4 mg PO ASDIRECTED PRN 03/12/14 [History] amLODIPine [Norvasc] 10 mg PO DAILY 03/12/14 [History] atorvaSTATin [Lipitor] 40 mg PO BEDTIME 03/12/14 [History] Docusate Sodium [Colace] 100 mg PO BID 09/11/14 [History] Furosemide 40 mg PO DAILY 09/11/14 [History] Mometasone Furoate [Asmanex 220 MCG] 1 puff INH BID 09/11/14 [History] Omeprazole [Prilosec] 20 mg PO DAILY 09/11/14 [History] Potassium Chloride 10 meq PO DAILY 09/11/14 [History] metFORMIN [Glucophage] 500 mg PO DAILY 09/19/15 [History] Atenolol [Tenormin] 50 mg PO DAILY 04/17/17 [History] Cholecalciferol (Vitamin D3) [Vitamin D3] 1,000 mg PO DAILY 04/17/17 [History] Esomeprazole Magnesium [Nexium] 20 mg PO DAILY 04/17/17 [History] Sertraline [Zoloft] 25 mg PO DAILY 04/17/17 [History] Past Medical History Other HEENT History: wears eyeglasses Cardiovascular History: Reports: Angina, CAD, High Cholesterol, Hypertension Respiratory History: Reports: COPD, Pneumonia, Recurrent Other Respiratory History: Has oxygen at home at night - 2 L per NC. Gastrointestinal History: Reports: GERD, Irritable Bowel Syndrome Genitourinary History: Reports: Chronic Renal Insuffiency Other Genitourinary History: renal disease [employer] History: Reports: Other OB/BYN History: hysterectomy Musculoskeletal History: Reports: Arthritis, Gout Other Musculoskeletal History: sciatica Psychiatric History: Reports: Anxiety, Depression Endocrine/Metabolic History: Reports: Diabetes, Type II, Obesity/BMI 30+ Dermatologic History: Reports: Eczema Other Dermatologic History: eczema - Infectious Disease History Infectious Disease History: Reports: Influenza - Past Surgical History HEENT Surgical History: Reports: Cataract Surgery Cardiovascular Surgical History: Reports: Coronary Artery Stent, Percutaneous Transluminal Angioplasty GI Surgical History: Reports: Colonoscopy, Hernia Repair/Other Musculoskeletal Surgical History: Reports: Carpal Tunnel Social & Family History - Family History Family Medical History: Noncontributory - Tobacco Use Smoking Status *Q: Former Smoker Years of Tobacco use: 20 Packs/Tins Daily: 1 Used Tobacco, but Quit: Yes Month Tobacco Last Used: 1989 Second Hand Smoke Exposure: No - Caffeine Use Caffeine Use: Reports: Coffee - Recreational Drug Use Recreational Drug Use: No - Living Situation & Occupation Living situation: Reports: , Alone Occupation: Retired H&P Review of Systems - Review of Systems: Review Of Systems: See Below General: Reports: Fever, Chills, Malaise, Weakness, Fatigue, Decreased Appetite HEENT: Reports: No Symptoms Pulmonary: Reports: Shortness of Breath, Wheezing, Pleuritic Chest Pain Cardiovascular: Reports: No Symptoms Gastrointestinal: Reports: No Symptoms Genitourinary: Reports: No Symptoms Musculoskeletal: Reports: No Symptoms Skin: Reports: No Symptoms Psychiatric: Reports: No Symptoms Neurological: Reports: No Symptoms Hematologic/Lymphatic: Reports: No Symptoms Immunologic: Reports: No Symptoms Exam - Exam Exam: See Below - Vital Signs Vital Signs: Last Vital Signs Temp 39.2 C H 04/17/17 20:14 Pulse 67 04/17/17 18:07 Resp 21 H 04/17/17 18:07 BP 147/60 H 04/17/17 18:07 Pulse Ox 96 04/17/17 18:49 Weight: 79.746 kg - Exam Quality Assessment: Supplemental Oxygen, DVT Prophylaxis General: Alert, Oriented, Cooperative HEENT: Conjunctiva Clear, Nares Patent, Normal Nasal Septum, Pupils Equal, Pupils Reactive, PERRLA Neck: Trachea Midline Lungs: Normal Respiratory Effort, Decreased Breath Sounds, Wheezing Cardiovascular: Regular Rate, Regular Rhythm GI/Abdominal Exam: Normal Bowel Sounds, Soft, Non-Tender, No Organomegaly, No Distention (Female) Exam: Deferred Rectal (Female) Exam: Deferred Back Exam: Normal Inspection Extremities: Normal Inspection, Non-Tender, Slow Capillary Refill Skin: Warm Neurological: Cranial Nerves Intact Neuro Extensive - Mental Status: Alert, Oriented x3, Normal Mood/Affect, Normal Cognition, Memory Intact Neuro Extensive - Motor, Sensory, Reflexes: CN II-XII Intact Psychiatric: Alert, Normal Affect, Normal Mood - Patient Data Result Diagrams: 04/18/17 05:12 04/18/17 05:12 *Q Meaningful Use (ADM) - VTE *Q VTE Criteria *Q: - Stroke *Q Stroke Criteria *Q: - AMI *Q AMI Criteria *Q: - Problem List (1) Hypoxia SNOMED Code(s): 960803689 ICD Code: R09.02 - HYPOXEMIA Status: Acute Current Visit: Yes (2) Pneumonia SNOMED Code(s): 287566754 ICD Code: J18.9 - PNEUMONIA, UNSPECIFIED ORGANISM Status: Acute Current Visit: Yes Qualifiers: Pneumonia type: due to unspecified organism Laterality: right Lung location: lower lobe of lung Qualified Code(s): J18.1 - Lobar pneumonia, unspecified organism (3) Chest pain SNOMED Code(s): 33302067 ICD Code: R07.9 - CHEST PAIN, UNSPECIFIED Status: Acute Current Visit: No (4) Chronic renal insufficiency SNOMED Code(s): 111127520 ICD Code: N18.9 - CHRONIC KIDNEY DISEASE, UNSPECIFIED Status: Acute Current Visit: No (5) Hypomagnesemia SNOMED Code(s): 670283217 ICD Code: E83.42 - HYPOMAGNESEMIA Status: Acute Current Visit: No Problem List Initiated/Reviewed/Updated: Yes Orders Last 24hrs: Active Orders 24 hr Category Date Time Status CXR [Chest 2V] [CR] Routine Exams 04/19/17 08:00 Ordered Docusate Sodium [Colace] Med 04/18/17 09:00 Ordered 100 mg PO BID Esomeprazole Magnesium [Nexium] Med 04/18/17 09:00 Ordered 20 mg PO DAILY Mometasone Furoate [Asmanex 220 MCG] Med 04/18/17 09:00 Ordered 1 puff INH BID Nitroglycerin [Nitrostat] Med 04/17/17 22:04 Ordered 0.4 mg SL ASDIRECTED PRN Omeprazole Med 04/18/17 09:00 Ordered 20 mg PO DAILY Potassium Chloride [Klor-Con 10] Med 04/18/17 09:00 Ordered 10 meq PO DAILY Sertraline [Zoloft] Med 04/18/17 09:00 Ordered 25 mg PO DAILY metFORMIN [Glucophage] Med 04/18/17 09:00 Ordered 500 mg PO DAILY Medication Orders Docusate Sodium (Colace) 100 mg PO BID [facility] Metformin HCl (Glucophage) 500 mg PO DAILY [facility] Mometasone Furoate (Asmanex 220 Mcg) 1 puff INH BID [facility] Nitroglycerin (Nitrostat) 0.4 mg SL ASDIRECTED PRN PRN Reason: Chest Pain Non-Formulary Medication (Esomeprazole Magnesium [Nexium]) 20 mg PO DAILY [facility] Non-Formulary Medication (Omeprazole) 20 mg PO DAILY [facility] Potassium Chloride (Klor-Con 10) 10 meq PO DAILY [facility] Sertraline HCl (Zoloft) 25 mg PO DAILY [facility] Sodium Chloride (Saline Flush) 10 ml FLUSH ASDIRECTED PRN PRN Reason: Keep Vein Open Last Admin: 04/17/17 20:14 Dose: 10 ml Assessment/Plan Comment:: Impression: --Acute respiratory distress, hypoxia--sick contact, unknown Empiric treatment for PNA, after admission: mycoplasma positive droplet isolation --COPD requires O2 at 2l/m --DM type II --CKD, acute on chronic --Abnormal electrolytes Chronic CAD HTN HLD IBS Former tobacco Plan: IVF ATB Isolation Correct electrolytes Home meds Dailly labs DVT/GI prophylaxis Consult PT/OT/(CM)
[2017-04-17] MEDS ORDERED: Albuterol 0.083% 2.5 MG/3 ML Neb Soln NEB PRN (22:17)
[2017-04-17] MEDS ORDERED: Temazepam 7.5 MG Cap PO PRN (22:17)
[2017-04-17] MEDS ORDERED: Acetaminophen 325 MG Tab PO PRN (22:18)
[2017-04-17] MEDS ORDERED: 50% Dextrose in Water 50 ML Syringe IVPUSH PRN (22:20)
[2017-04-17] MEDS ORDERED: hydrALAZINE 20 MG/ML SDV IVPUSH PRN (22:23)
[2017-04-17] MEDS ORDERED: Sodium Chloride 0.45% 1,000 ML IV SCH (22:30)
[2017-04-17] MEDS: Albuterol/Ipratropium 3.0-0.5 MG/3 ML Neb Soln NEB SCH (23:19)
[2017-04-18] MEDS ORDERED: Doxycycline 100 MG Vial ONE (00:02)
[2017-04-18] MEDS: Doxycycline 100 MG in Sodium Chloride 0.9% 100 ML IV SCH ×2 (00:15→11:26)
[2017-04-18] MEDS: Ondansetron 4 MG/2 ML SDV IVPUSH PRN ×2 (02:42→23:53)
[2017-04-18] MEDS: Albuterol/Ipratropium 3.0-0.5 MG/3 ML Neb Soln NEB SCH ×4 (06:36→21:01)
[2017-04-18] MEDS: Mometasone Furoate Powder 220 MCG/Puff 14 Dose Inhaler INH SCH ×2 (06:36→21:01)
[2017-04-18] MEDS: Pantoprazole 40 MG Tab.CR PO SCH (06:37)
[2017-04-18] MEDS ORDERED: Furosemide 20 MG/2 ML VIAL IVPUSH ONE (07:00)
--- NOTE | 2017-04-18 08:00 | CR ---
Chest: Frontal view of the chest was obtained. Comparison: Prior chest x-ray of 04/17/17. Heart size and mediastinum are normal. Tortuous thoracic aorta is seen with atherosclerotic calcification. Hiatal hernia is present. Lungs are clear. Bony structures are grossly intact. Impression: 1. Incidental findings. Nothing acute is seen on frontal chest x-ray. No change is seen from previous exam. Diagnostic code #2 Agree with preliminary report issued by [facility] ([facility] preliminary report dictated on 04/18/17, 6:16 AM Central Time)
--- NOTE | 2017-04-18 08:00 | CR ---
Abdomen: Supine view of the abdomen was obtained. Comparison: Prior abdominal x-ray of 09/18/11. Scoliosis and degenerative change are seen within the spine. Vascular calcification is identified. Bowel gas pattern is normal. No discrete soft tissue abnormality is seen. Impression: 1. Nonspecific supine abdominal x-ray. Nothing acute is seen. Diagnostic code #2 Agree with preliminary report issued by [facility] ([facility] preliminary report dictated on 04/18/17, 6:17 AM Central Time)
--- NOTE | 2017-04-18 08:00 | CR ---
Chest: Frontal view of the chest was obtained. Comparison: Prior chest x-ray of 09/06/16. Heart size is slightly enlarged. Tortuous thoracic aorta is seen. Atherosclerotic calcification is seen within the aortic knob. Small to moderate sized hiatal hernia is present. Lungs are clear. Bony structures are grossly intact. Impression: 1. Incidental findings. Nothing acute is appreciated on frontal chest x-ray. Diagnostic code #2
[2017-04-18] MEDS ORDERED: Non-Formulary Medication 1 Each (Esomeprazole Magnesium [Nexium] 20 MG) PO SCH (09:00)
[2017-04-18] MEDS ORDERED: Non-Formulary Medication 1 Each (Omeprazole 20 MG) PO SCH (09:00)
[2017-04-18] MEDS: metFORMIN 500 MG Tab PO SCH (11:23)
[2017-04-18] MEDS: Docusate Sodium 100 MG Cap PO SCH ×2 (11:23→21:52)
[2017-04-18] MEDS: Doxycycline 100 MG Cap PO SCH ×2 (11:24→21:59)
[2017-04-18] MEDS: Metoclopramide 10 MG/2 ML SDV IVPUSH SCH ×2 (11:24→13:18)
[2017-04-18] MEDS: Potassium Chloride 10 MEQ Tab.ER PO SCH (11:24)
[2017-04-18] MEDS: Sertraline 25 MG Tab PO SCH (11:25)
--- NOTE | 2017-04-18 11:34 | PCM.PN ---
- General Info Date of Service: 04/18/17 Admission Dx/Problem (Free Text): PNA Subjective Update: Follow Up Functional Status: Reports: Pain Controlled, Ambulating, Urinating, New Symptoms - Review of Systems General: Denies: Fever, Weakness, Fatigue, Malaise, Chills HEENT: Reports: No Symptoms Pulmonary: Reports: Wheezing. Denies: Shortness of Breath, Pleuritic Chest Pain , Cough, Sputum Cardiovascular: Denies: Chest Pain, Palpitations, Dyspnea on Exertion, Edema, Lightheadedness Gastrointestinal: Denies: Abdominal Pain, Decreased Appetite, Nausea, Vomiting Genitourinary: Reports: No Symptoms Musculoskeletal: Reports: No Symptoms Skin: Denies: Cyanosis, Mottled, Pallor, Diaphoresis, Pruritis Neurological: Denies: Confusion, Weakness Psychiatric: Denies: Depression, Anxiety, Agitation, Hallucinations Systems Review Comment:: She feels pretty good this morning. She is afebrile with increased WBC level. She has had multiple epsiode of nausea with emesis overnight. Her emesis has since resolved but still somewhat nauseous. She has no other complaints. - Patient Data Vitals - Most Recent: Last Vital Signs Temp 37.7 C 04/18/17 07:46 Pulse 100 04/18/17 07:46 Resp 20 04/18/17 07:46 BP 124/69 04/18/17 07:46 Pulse Ox 96 04/18/17 09:56 Weight - Most Recent: 79.746 kg I&O - Last 24 Hours: Intake & Output 04/17/17 04/18/17 04/18/17 22:59 06:59 14:59 Intake Total 856 Output Total 300 Balance 556 Lab Results Last 24 Hours: Laboratory Results - last 24 hr 04/18/17 04/18/17 04/18/17 Range/Units 05:12 05:12 05:12 WBC 18.52 H (3.98-10.04) K/mm3 RBC 4.17 (3.98-5.22) M/mm3 Hgb 12.1 (11.2-15.7) gm/L Hct 38.6 (34.1-44.9) % MCV 92.6 (79.4-94.8) fl MCH 29.0 (25.6-32.2) pg MCHC 31.3 L (32.2-35.5) g/dl RDW Std Deviation 54.2 H (36.4-46.3) fL Plt Count 192 (182-369) K/mm3 MPV 10.8 (9.4-12.3) fl Neut % (Auto) 82.0 H (34.0-71.1) % Lymph % (Auto) 7.0 L (19.3-51.7) % [place] % (Auto) 10.3 (4.7-12.5) % Eos % (Auto) 0.1 L (0.7-5.8) Baso % (Auto) 0.2 (0.1-1.2) % Neut # (Auto) 15.22 H (1.56-6.13) K/mm3 Lymph # (Auto) 1.29 (1.18-3.74) K/mm3 [place] # (Auto) 1.90 H (0.24-0.36) K/mm3 Eos # (Auto) 0.01 L (0.04-0.36) K/mm3 Baso # (Auto) 0.03 (0.01-0.08) K/mm3 Manual Slide Review Abnormal smear Sodium 137 (136-145) mEq/L Potassium 3.7 (3.5-5.1) mEq/L Chloride 102 (98-107) mEq/L Carbon Dioxide 24 (21-32) mEq/L Anion Gap 14.7 (5-15) BUN 24 H (7-18) mg/dL Creatinine 1.4 H (0.55-1.02) mg/dL Est Cr Clr Drug Dosing 31.24 mL/min Estimated GFR (MDRD) 37 (>60) mL/min BUN/Creatinine Ratio 17.1 (14-18) Glucose 172 H (83-115) mg/dL POC Glucose (83-110) mg/dL Hemoglobin A1c (4.50-6.20) % Lactic Acid 3.4 H (0.4-2.0) mmol/L Calcium 9.1 (8.5-10.1) mg/dL Magnesium 1.3 L (1.8-2.4) mg/dl Troponin I < 0.017 (0.00-0.056) ng/mL C-Reactive Protein 7.6 H* (<1.0) mg/dL 04/18/17 04/18/17 04/18/17 Range/Units 05:12 06:56 10:21 WBC (3.98-10.04) K/mm3 RBC (3.98-5.22) M/mm3 Hgb (11.2-15.7) gm/L Hct (34.1-44.9) % MCV (79.4-94.8) fl MCH (25.6-32.2) pg MCHC (32.2-35.5) g/dl RDW Std Deviation (36.4-46.3) fL Plt Count (182-369) K/mm3 MPV (9.4-12.3) fl Neut % (Auto) (34.0-71.1) % Lymph % (Auto) (19.3-51.7) % [place] % (Auto) (4.7-12.5) % Eos % (Auto) (0.7-5.8) Baso % (Auto) (0.1-1.2) % Neut # (Auto) (1.56-6.13) K/mm3 Lymph # (Auto) (1.18-3.74) K/mm3 [place] # (Auto) (0.24-0.36) K/mm3 Eos # (Auto) (0.04-0.36) K/mm3 Baso # (Auto) (0.01-0.08) K/mm3 Manual Slide Review Sodium (136-145) mEq/L Potassium (3.5-5.1) mEq/L Chloride (98-107) mEq/L Carbon Dioxide (21-32) mEq/L Anion Gap (5-15) BUN (7-18) mg/dL Creatinine (0.55-1.02) mg/dL Est Cr Clr Drug Dosing mL/min Estimated GFR (MDRD) (>60) mL/min BUN/Creatinine Ratio (14-18) Glucose (83-115) mg/dL POC Glucose 169 H 200 H (83-110) mg/dL Hemoglobin A1c 5.80 (4.50-6.20) % Lactic Acid (0.4-2.0) mmol/L Calcium (8.5-10.1) mg/dL Magnesium (1.8-2.4) mg/dl Troponin I (0.00-0.056) ng/mL C-Reactive Protein (<1.0) mg/dL Med Orders - Current: Current Medications Acetaminophen (Tylenol) 650 mg PO Q6H PRN PRN Reason: Pain/Fever Albuterol (Proventil Neb Soln) 2.5 mg NEB Q4HRRT PRN PRN Reason: Shortness of Breath Last Admin: 04/18/17 04:23 Dose: 2.5 mg Albuterol/Ipratropium (Duoneb 3.0-0.5 Mg/3 Ml) 3 ml NEB QIDRT [facility] Last Admin: 04/18/17 09:56 Dose: 3 ml Dextrose/Water (Dextrose 50% In Water) 50 ml IVPUSH ASDIRECTED PRN PRN Reason: Hypoglycemia Docusate Sodium (Colace) 100 mg PO BID [facility] Doxycycline Hyclate (Vibramycin) 100 mg PO Q12H [facility] Hydralazine HCl (Apresoline) 20 mg IVPUSH Q6H PRN PRN Reason: Hypertension Metformin HCl (Glucophage) 500 mg PO WITHBREAKFAST [facility] Metoclopramide HCl (Reglan) 5 mg IVPUSH Q6H [facility] Mometasone Furoate (Asmanex 220 Mcg) 1 puff INH BIDRT [facility] Last Admin: 04/18/17 06:36 Dose: 1 puff Nitroglycerin (Nitrostat) 0.4 mg SL ASDIRECTED PRN PRN Reason: Chest Pain Ondansetron HCl (Zofran) 4 mg IVPUSH Q4H PRN PRN Reason: Nausea Last Admin: 04/18/17 02:42 Dose: 4 mg Pantoprazole Sodium (Protonix) 40 mg PO DAILY@0700 [facility] Last Admin: 04/18/17 06:37 Dose: 40 mg Potassium Chloride (Klor-Con 10) 10 meq PO DAILY [facility] Sertraline HCl (Zoloft) 25 mg PO DAILY [facility] Sodium Chloride (Saline Flush) 10 ml FLUSH ASDIRECTED PRN PRN Reason: Keep Vein Open Last Admin: 04/17/17 20:14 Dose: 10 ml Temazepam (Restoril) 7.5 mg PO BEDTIME PRN PRN Reason: Insomnia Discontinued Medications Acetaminophen (Tylenol) 975 mg PO NOW ONE Stop: 04/17/17 20:11 Last Admin: 04/17/17 20:14 Dose: 975 mg Albuterol/Ipratropium (Duoneb 3.0-0.5 Mg/3 Ml) 3 ml NEB ONETIME ONE Stop: 04/17/17 18:50 Last Admin: 04/17/17 18:54 Dose: 3 ml Albuterol/Ipratropium (Duoneb 3.0-0.5 Mg/3 Ml) Confirm Administered Dose 3 ml .ROUTE .STK-MED ONE Stop: 04/17/17 18:58 Last Admin: 04/17/17 18:54 Dose: Not Given Albuterol/Ipratropium (Duoneb 3.0-0.5 Mg/3 Ml) 3 ml NEB QIDRT [facility] Doxycycline Hyclate (Vibramycin) Confirm Administered Dose 100 mg .ROUTE .STK- MED ONE Stop: 04/18/17 00:03 Last Admin: 04/18/17 03:06 Dose: Not Given Furosemide (Lasix) 20 mg IVPUSH ONETIME ONE Stop: 04/18/17 07:01 Last Admin: 04/18/17 06:38 Dose: 20 mg Levofloxacin/Dextrose 750 mg/ (Premix) 150 mls @ 100 mls/hr IV ONETIME ONE Stop: 04/17/17 21:34 Last Admin: 04/17/17 20:11 Dose: 100 mls/hr Doxycycline Hyclate 100 mg/ (Sodium Chloride) 100 mls @ 100 mls/hr IV Q12HR [facility] Last Admin: 04/18/17 00:15 Dose: 100 mls/hr Sodium Chloride (Sodium Chloride 0.45%) 1,000 mls @ 100 mls/hr IV ASDIRECTED [facility] Stop: 04/18/17 10:30 Last Admin: 04/18/17 00:19 Dose: 100 mls/hr Non-Formulary Medication (Omeprazole) 20 mg PO DAILY [facility] - Exam General: Alert, Oriented, Cooperative, No Acute Distress HEENT: Pupils Equal, Pupils Reactive, Mucous Membr. Moist/[place] Neck: Supple, Trachea Midline, No JVD Lungs: Normal Respiratory Effort, Decreased Breath Sounds, Rhonchi, Wheezing Cardiovascular: Regular Rate, Regular Rhythm GI/Abdominal Exam: Normal Bowel Sounds, Soft, Non-Tender, No Organomegaly, No Distention, No Abnormal Bruit, No Mass (Female) Exam: Deferred Back Exam: Normal Inspection, Decreased Range of Motion Extremities: Normal Inspection, Normal Range of Motion, Non-Tender, No Pedal Edema, Normal Capillary Refill Peripheral Pulses: 2+: Dorsalis Pedis (L), Dorsalis Pedis (R) Skin: Warm, Dry, Intact Neurological: No New Focal Deficit Psy/Mental Status: Alert, Normal Affect, Normal Mood - Problem List Review Problem List Initiated/Reviewed/Updated: Yes - My Orders Last 24 Hours: My Active Orders 04/18/17 11:00 Doxycycline [Vibramycin] 100 mg PO Q12H - Plan Plan:: Impression: Acute: Mycoplasma Pneumoniae Positive - 2/2 Bronchitis vs Aspiration PNA - Initial CXR no obvious infiltrate; repeat shows clear lungs - Continue oral Vibramycin 100 mg po Q12H Mild COPD Exacerbation, Improved - 2/2 Mycoplasma Pneumonia Infection - Continue supplemental O2 at 2l/m, Bronchodilators, IV Magnesium Sulfate and IV Steroids Leukocytosis - WBC 12.16 --> 18.52; CRP 3.4 --> 7.6 - 2/2 above - Treatment as above Hypomagnesemia - Mg 1.6 --> 1.3 - 2/2 Inadequate intake - Replete and monitor S/p Emesis with lingering Nausea - Continue PRN Reglan - Scopolamine Patch x1 - Start clear liquid diet then advance as tolerated Resolved: S/p Respiratory distress, hypoxia - Sick contact, unknown - Bronchitis vs Aspiration Pneumonitis - Had multiple emesis overnight Chronic: CAD HTN HLD Hypoxia on 2L NC IBS/GERD DM2, Controlled CKD Stage 3 Former tobacco User OA Gout Eczema Obesity Anxiety Depression Plan: She is clinically stable Continue current treatment Routine Daily labs DVT/GI prophylaxis Continue RT/PT/OT CM/SW for d/c planning Encourage to use IS and ambulate as tolerated [facility] for Nursing and PT Additional orders as above Code status: 1 Possible d/c in 1-2 days
[2017-04-18] MEDS ORDERED: Scopolamine 1 MG Transdermal Patch TRDERM PRN (12:51)
[2017-04-18] MEDS ORDERED: Albuterol/Ipratropium 3.0-0.5 MG/3 ML Neb Soln NEB SCH (23:00)
[2017-04-19] MEDS ORDERED: Metoclopramide 10 MG/2 ML SDV IVPUSH PRN (00:51)
[2017-04-19] MEDS ORDERED: Metoprolol Tartrate 5 MG/5 ML SDV IVPUSH PRN (00:52)
[2017-04-19] MEDS ORDERED: LORazepam 2 MG/ML SDV IVPUSH PRN (00:52)
[2017-04-19] MEDS ORDERED: Magnesium Sulfate/Water 2 GM in Premix Bag 1 BAG IV ONE (00:52)
[2017-04-19] MEDS ORDERED: hydrALAZINE 20 MG/ML SDV IVPUSH PRN (00:52)
[2017-04-19] MEDS: methylPREDNISolone Sodium Succinate 40 MG/1 ML SDV IVPUSH SCH ×3 (01:07→17:11)
[2017-04-19] MEDS ORDERED: Potassium Chloride 20 MEQ Tab.ER PO ONE ×2 (01:15→06:00)
[2017-04-19] MEDS: Pantoprazole 40 MG Tab.CR PO SCH (06:01)
[2017-04-19] MEDS: metFORMIN 500 MG Tab PO SCH (06:01)
[2017-04-19] MEDS: Mometasone Furoate Powder 220 MCG/Puff 14 Dose Inhaler INH SCH ×2 (06:15→20:18)
[2017-04-19] MEDS: Albuterol/Ipratropium 3.0-0.5 MG/3 ML Neb Soln NEB SCH ×4 (06:15→20:17)
[2017-04-19] MEDS: Potassium Chloride 10 MEQ Tab.ER PO SCH (09:44)
[2017-04-19] MEDS: Docusate Sodium 100 MG Cap PO SCH ×2 (09:44→22:16)
[2017-04-19] MEDS: Sertraline 25 MG Tab PO SCH (09:45)
--- NOTE | 2017-04-19 09:45 | CR ---
Chest: Two views of the chest were obtained. Comparison: Prior chest x-ray of 04/18/17. Heart size is normal. Mild tortuosity of the thoracic aorta is seen. Blunting of the posterior costophrenic angles are seen suspicious for small pleural effusions. Pulmonary vessels are minimally increased. Hiatal hernia appears to be present. Bony structures appear within normal limits for the patient's age. Impression: 1. Pulmonary vessels appear to be slightly congested with small pleural effusions. Findings are suspicious for mild/early CHF. Please correlate. 2. Other incidental findings. Diagnostic code #3
[2017-04-19] MEDS: Doxycycline 100 MG Cap PO SCH ×2 (10:09→22:16)
--- NOTE | 2017-04-19 19:52 | PCM.PN ---
- General Info Date of Service: 04/19/17 Admission Dx/Problem (Free Text): PNA Subjective Update: Follow Up Functional Status: Reports: Pain Controlled, Tolerating Diet, Ambulating, Urinating - Review of Systems General: Denies: Fever, Weakness, Fatigue, Malaise, Chills HEENT: Reports: Contact Lenses Pulmonary: Denies: Shortness of Breath, Pleuritic Chest Pain, Cough, Sputum, Wheezing Cardiovascular: Denies: Chest Pain, Palpitations, Dyspnea on Exertion, Orthopnea , Lightheadedness, Other Gastrointestinal: Reports: Flatus, Nausea, Other (heart burn). Denies: Abdominal Pain, Constipation, Decreased Appetite, Difficulty Swallowing, Vomiting Genitourinary: Reports: No Symptoms Musculoskeletal: Reports: No Symptoms Skin: Reports: Bruising, Pruritis, Rash. Denies: Cyanosis, Jaundice, Mottled, Pallor, Diaphoresis Neurological: Denies: Confusion, Dizziness, Tremors, Difficulty Walking, Weakness, Change in Speech Psychiatric: Reports: No Symptoms. Denies: Depression, Mood Lability, Agitation Systems Review Comment:: Overnight she gain had emesis x3. She also got dizzy when she got up to go to the bathroom. She complained at that time about having the sensation the of "spinning room". Currently, she is asymptomatic. She otherwise slept good. She is eating and drinking okay. She feels pretty good overall. She has no new complaints. - Patient Data Vitals - Most Recent: Last Vital Signs Temp 36.3 C 04/19/17 14:31 Pulse 72 04/19/17 14:31 Resp 24 H 04/19/17 14:31 BP 128/64 04/19/17 14:31 Pulse Ox 97 04/19/17 15:37 Weight - Most Recent: 80.83 kg I&O - Last 24 Hours: Intake & Output 04/19/17 04/19/17 04/19/17 06:59 14:59 22:59 Intake Total 650 180 500 Output Total 575 650 Balance 75 180 -150 Lab Results Last 24 Hours: Laboratory Results - last 24 hr 04/18/17 04/19/17 04/19/17 Range/Units 20:57 05:43 05:43 WBC 18.95 H (3.98-10.04) K/mm3 RBC 3.87 L (3.98-5.22) M/mm3 Hgb 11.3 (11.2-15.7) gm/L Hct 35.6 (34.1-44.9) % MCV 92.0 (79.4-94.8) fl MCH 29.2 (25.6-32.2) pg MCHC 31.7 L (32.2-35.5) g/dl RDW Std Deviation 53.5 H (36.4-46.3) fL Plt Count 175 L (182-369) K/mm3 MPV 11.0 (9.4-12.3) fl Neut % (Auto) 92.3 H (34.0-71.1) % Lymph % (Auto) 4.1 L (19.3-51.7) % Brooke % (Auto) 3.2 L (4.7-12.5) % Eos % (Auto) 0 L (0.7-5.8) Baso % (Auto) 0.1 (0.1-1.2) % Neut # (Auto) 17.50 H (1.56-6.13) K/mm3 Lymph # (Auto) 0.77 L (1.18-3.74) K/mm3 Brooke # (Auto) 0.61 H (0.24-0.36) K/mm3 Eos # (Auto) 0.00 L (0.04-0.36) K/mm3 Baso # (Auto) 0.01 (0.01-0.08) K/mm3 Manual Slide Review Abnormal smear Sodium 136 (136-145) mEq/L Potassium 4.7 (3.5-5.1) mEq/L Chloride 103 (98-107) mEq/L Carbon Dioxide 25 (21-32) mEq/L Anion Gap 12.7 (5-15) BUN 22 H (7-18) mg/dL Creatinine 1.3 H (0.55-1.02) mg/dL Est Cr Clr Drug Dosing 33.65 mL/min Estimated GFR (MDRD) 40 (>60) mL/min BUN/Creatinine Ratio 16.9 (14-18) Glucose 177 H (83-115) mg/dL POC Glucose 84 (83-110) mg/dL Lactic Acid (0.4-2.0) mmol/L Calcium 9.3 (8.5-10.1) mg/dL Magnesium 2.2 (1.8-2.4) mg/dl C-Reactive Protein 18.1 H* (<1.0) mg/dL 04/19/17 04/19/17 04/19/17 Range/Units 05:43 06:26 10:12 WBC (3.98-10.04) K/mm3 RBC (3.98-5.22) M/mm3 Hgb (11.2-15.7) gm/L Hct (34.1-44.9) % MCV (79.4-94.8) fl MCH (25.6-32.2) pg MCHC (32.2-35.5) g/dl RDW Std Deviation (36.4-46.3) fL Plt Count (182-369) K/mm3 MPV (9.4-12.3) fl Neut % (Auto) (34.0-71.1) % Lymph % (Auto) (19.3-51.7) % Brooke % (Auto) (4.7-12.5) % Eos % (Auto) (0.7-5.8) Baso % (Auto) (0.1-1.2) % Neut # (Auto) (1.56-6.13) K/mm3 Lymph # (Auto) (1.18-3.74) K/mm3 Brooke # (Auto) (0.24-0.36) K/mm3 Eos # (Auto) (0.04-0.36) K/mm3 Baso # (Auto) (0.01-0.08) K/mm3 Manual Slide Review Sodium (136-145) mEq/L Potassium (3.5-5.1) mEq/L Chloride (98-107) mEq/L Carbon Dioxide (21-32) mEq/L Anion Gap (5-15) BUN (7-18) mg/dL Creatinine (0.55-1.02) mg/dL Est Cr Clr Drug Dosing mL/min Estimated GFR (MDRD) (>60) mL/min BUN/Creatinine Ratio (14-18) Glucose (83-115) mg/dL POC Glucose 174 H 262 H (83-110) mg/dL Lactic Acid 0.9 (0.4-2.0) mmol/L Calcium (8.5-10.1) mg/dL Magnesium (1.8-2.4) mg/dl C-Reactive Protein (<1.0) mg/dL 04/19/17 Range/Units 17:44 WBC (3.98-10.04) K/mm3 RBC (3.98-5.22) M/mm3 Hgb (11.2-15.7) gm/L Hct (34.1-44.9) % MCV (79.4-94.8) fl MCH (25.6-32.2) pg MCHC (32.2-35.5) g/dl RDW Std Deviation (36.4-46.3) fL Plt Count (182-369) K/mm3 MPV (9.4-12.3) fl Neut % (Auto) (34.0-71.1) % Lymph % (Auto) (19.3-51.7) % Brooke % (Auto) (4.7-12.5) % Eos % (Auto) (0.7-5.8) Baso % (Auto) (0.1-1.2) % Neut # (Auto) (1.56-6.13) K/mm3 Lymph # (Auto) (1.18-3.74) K/mm3 Brooke # (Auto) (0.24-0.36) K/mm3 Eos # (Auto) (0.04-0.36) K/mm3 Baso # (Auto) (0.01-0.08) K/mm3 Manual Slide Review Sodium (136-145) mEq/L Potassium (3.5-5.1) mEq/L Chloride (98-107) mEq/L Carbon Dioxide (21-32) mEq/L Anion Gap (5-15) BUN (7-18) mg/dL Creatinine (0.55-1.02) mg/dL Est Cr Clr Drug Dosing mL/min Estimated GFR (MDRD) (>60) mL/min BUN/Creatinine Ratio (14-18) Glucose (83-115) mg/dL POC Glucose 224 H (83-110) mg/dL Lactic Acid (0.4-2.0) mmol/L Calcium (8.5-10.1) mg/dL Magnesium (1.8-2.4) mg/dl C-Reactive Protein (<1.0) mg/dL Darryl Results Last 24 Hours: Microbiology 04/18/17 06:55 Respiratory Virus Panel (PCR) (DARRYL) - Final Nasopharyngeal Swab - Nare, Unspecified 04/18/17 07:50 Streptococcus pneumoniae Antigen (M - Final Urine Med Orders - Current: Current Medications Acetaminophen (Tylenol) 650 mg PO Q6H PRN PRN Reason: Pain/Fever Last Admin: 04/18/17 11:34 Dose: 650 mg Albuterol (Proventil Neb Soln) 2.5 mg NEB Q4HRRT PRN PRN Reason: Shortness of Breath Last Admin: 04/18/17 04:23 Dose: 2.5 mg Albuterol/Ipratropium (Duoneb 3.0-0.5 Mg/3 Ml) 3 ml NEB QIDRT [facility] Last Admin: 04/19/17 15:37 Dose: 3 ml Allopurinol (Zyloprim) 300 mg PO DAILY [facility] Amlodipine Besylate (Norvasc) 5 mg PO DAILY [facility] Aspirin (Aspirin) 81 mg PO DAILY [facility] Atenolol (Tenormin) 50 mg PO DAILY [facility] Dextrose/Water (Dextrose 50% In Water) 50 ml IVPUSH ASDIRECTED PRN PRN Reason: Hypoglycemia Docusate Sodium (Colace) 100 mg PO BID [facility] Last Admin: 04/19/17 09:44 Dose: 100 mg Doxycycline Hyclate (Vibramycin) 100 mg PO Q12H [facility] Last Admin: 04/19/17 10:09 Dose: 100 mg Hydralazine HCl (Apresoline) 20 mg IVPUSH Q4H PRN PRN Reason: Hypertension Insulin Aspart (Novolog) 0 unit SUBCUT QIDACANDBED [facility] PRN Reason: Protocol Lorazepam (Ativan) 2 mg IVPUSH Q4H PRN PRN Reason: Seizures Magnesium Sulfate (Pharmacy To Dose - Magnesium Replacement) 1 dose .XX ASDIRECTED [facility] Metformin HCl (Glucophage) 500 mg PO WITHBREAKFAST [facility] Last Admin: 04/19/17 06:01 Dose: 500 mg Methylprednisolone Sodium Succinate (Solu-Medrol) 40 mg IVPUSH Q8H [facility] Last Admin: 04/19/17 17:11 Dose: 40 mg Metoclopramide HCl (Reglan) 5 mg IVPUSH Q6H PRN PRN Reason: Nausea Last Admin: 04/19/17 01:06 Dose: 5 mg Metoprolol Tartrate (Lopressor) 5 mg IVPUSH Q4H PRN PRN Reason: Tachycardia Miscellaneous Information (Remove Patch) 0 ea TRDERM Q72H [facility] Mometasone Furoate (Asmanex 220 Mcg) 1 puff INH BIDRT [facility] Last Admin: 04/19/17 06:15 Dose: 1 puff Nitroglycerin (Nitrostat) 0.4 mg SL ASDIRECTED PRN PRN Reason: Chest Pain Ondansetron HCl (Zofran) 4 mg IVPUSH Q4H PRN PRN Reason: Nausea Last Admin: 04/18/17 23:53 Dose: 4 mg Pantoprazole Sodium (Protonix) 40 mg PO DAILY@0700 [facility] Last Admin: 04/19/17 06:01 Dose: 40 mg Potassium Chloride (Klor-Con 10) 10 meq PO DAILY [facility] Last Admin: 04/19/17 09:44 Dose: 10 meq Potassium Chloride (Pharmacy To Dose - Potassium Replacement) 1 dose .XX ASDIRECTED [facility] Scopolamine (Scopolamine) 1 each TRDERM Q72H PRN PRN Reason: Nausea Last Admin: 04/18/17 13:11 Dose: 1 each Sertraline HCl (Zoloft) 25 mg PO DAILY [facility] Last Admin: 04/19/17 09:45 Dose: 25 mg Sodium Chloride (Saline Flush) 10 ml FLUSH ASDIRECTED PRN PRN Reason: Keep Vein Open Last Admin: 04/17/17 20:14 Dose: 10 ml Temazepam (Restoril) 7.5 mg PO BEDTIME PRN PRN Reason: Insomnia Discontinued Medications Acetaminophen (Tylenol) 975 mg PO NOW ONE Stop: 04/17/17 20:11 Last Admin: 04/17/17 20:14 Dose: 975 mg Albuterol/Ipratropium (Duoneb 3.0-0.5 Mg/3 Ml) 3 ml NEB ONETIME ONE Stop: 04/17/17 18:50 Last Admin: 04/17/17 18:54 Dose: 3 ml Albuterol/Ipratropium (Duoneb 3.0-0.5 Mg/3 Ml) Confirm Administered Dose 3 ml .ROUTE .STK-MED ONE Stop: 04/17/17 18:58 Last Admin: 04/17/17 18:54 Dose: Not Given Albuterol/Ipratropium (Duoneb 3.0-0.5 Mg/3 Ml) 3 ml NEB QIDRT [facility] Doxycycline Hyclate (Vibramycin) Confirm Administered Dose 100 mg .ROUTE .STK- MED ONE Stop: 04/18/17 00:03 Last Admin: 04/18/17 03:06 Dose: Not Given Furosemide (Lasix) 20 mg IVPUSH ONETIME ONE Stop: 04/18/17 07:01 Last Admin: 04/18/17 06:38 Dose: 20 mg Hydralazine HCl (Apresoline) 20 mg IVPUSH Q6H PRN PRN Reason: Hypertension Levofloxacin/Dextrose 750 mg/ (Premix) 150 mls @ 100 mls/hr IV ONETIME ONE Stop: 04/17/17 21:34 Last Admin: 04/17/17 20:11 Dose: 100 mls/hr Doxycycline Hyclate 100 mg/ (Sodium Chloride) 100 mls @ 100 mls/hr IV Q12HR [facility] Last Admin: 04/18/17 11:26 Dose: Not Given Sodium Chloride (Sodium Chloride 0.45%) 1,000 mls @ 100 mls/hr IV ASDIRECTED [facility] Stop: 04/18/17 10:30 Last Admin: 04/18/17 00:19 Dose: 100 mls/hr Magnesium Sulfate 2 gm/ Premix 50 mls @ 25 mls/hr IV ONETIME ONE Stop: 04/19/17 02:51 Last Admin: 04/19/17 01:07 Dose: 25 mls/hr Metoclopramide HCl (Reglan) 5 mg IVPUSH Q6H [facility] Last Admin: 04/18/17 13:18 Dose: 5 mg Non-Formulary Medication (Omeprazole) 20 mg PO DAILY [facility] Potassium Chloride (Klor-Con M20) 40 meq PO ONETIME ONE Stop: 04/19/17 01:16 Last Admin: 04/19/17 01:19 Dose: 40 meq Potassium Chloride (Klor-Con M20) 20 meq PO ONETIME ONE Stop: 04/19/17 06:01 Last Admin: 04/19/17 06:01 Dose: 20 meq - Exam General: Alert, Oriented, Cooperative, No Acute Distress HEENT: Pupils Equal, Pupils Reactive, EOMI, Mucous Membr. Moist/Clever Neck: Supple, Trachea Midline, No JVD, No Thyromegaly Lungs: Normal Respiratory Effort, Decreased Breath Sounds, Other (Improved aeration) Cardiovascular: Regular Rate, Regular Rhythm GI/Abdominal Exam: Normal Bowel Sounds, Soft, Non-Tender, No Organomegaly, No Abnormal Bruit, No Mass, Pelvis Stable (Female) Exam: Deferred Back Exam: Normal Inspection, Decreased Range of Motion Extremities: Normal Inspection, Normal Range of Motion, Non-Tender, No Pedal Edema, Normal Capillary Refill Peripheral Pulses: 2+: Dorsalis Pedis (L), Dorsalis Pedis (R) Skin: Warm, Dry, Intact Neurological: No New Focal Deficit Psy/Mental Status: Alert, Normal Affect, Normal Mood - Problem List Review Problem List Initiated/Reviewed/Updated: Yes - My Orders Last 24 Hours: My Active Orders 04/19/17 00:51 Metoclopramide [Reglan] 5 mg IVPUSH Q6H PRN 04/19/17 00:52 LORazepam [Ativan] 2 mg IVPUSH Q4H PRN Metoprolol Tartrate [Lopressor] 5 mg IVPUSH Q4H PRN hydrALAZINE [Apresoline] 20 mg IVPUSH Q4H PRN 04/19/17 01:00 Magnesium Rep Pharmacy to Dose [Pharmacy to Dose - Magnesium Replacement] 1 dose .XX ASDIRECTED Potassium Rep Pharmacy to Dose [Pharmacy to Dose - Potassium Replacement] 1 dose .XX ASDIRECTED methylPREDNISolone Sod Succ [Solu-MEDROL] 40 mg IVPUSH Q8H 04/21/17 13:00 Remove Patch 0 ea TRDERM Q72H - Plan Plan:: Impression: Acute: Mycoplasma Pneumoniae Positive - 2/2 Bronchitis vs Aspiration PNA - Initial CXR no obvious infiltrate; repeat shows clear lungs - Continue oral Vibramycin 100 mg po Q12H - Goal 5 day course of treatment Mild COPD Exacerbation, Continues to Improve - 2/2 Mycoplasma Pneumonia Infection - Continue supplemental O2 at 2l/m, Bronchodilators, IV Magnesium Sulfate and IV Steroids S/p Emesis with lingering Nausea - 2/2 GERD/Pyrosis and Hiatal Hernia - Continue PRN Reglan - Scopolamine Patch x1 - She tolerates regular diet and no issues with chewing and swallowing Worsening GERD/Pyrosis in the setting of Hiatal hernia - Continue PPI - Advised patient no food before bedtime and after each meal, she is to stay up right for at least 30 mins to avoid reflux - Need GI/GS eval for upper endoscopy Leukocytosis - WBC 12.16 --> 18.52__ 18.95; CRP 3.4 --> 7.6--> 18.1 - 2/2 above - Treatment as above Resolved: S/p Respiratory distress, hypoxia - Sick contact, unknown - Bronchitis vs Aspiration Pneumonitis - Had multiple emesis overnight Hypomagnesemia - Mg 1.6 --> 1.3--> 2.2 - 2/2 Inadequate intake - Replete and monitor Chronic: CAD HTN HLD Hypoxia on 2L NC IBS/GERD DM2, Controlled CKD Stage 3 Former tobacco User OA Gout Eczema Obesity Anxiety Depression Plan: She remains clinically stable Continue current treatment, Routine Daily labs, and RT/PT/OT DVT/GI prophylaxis Encourage to use IS and ambulate as tolerated HHS for Nursing and PT CM/SW for d/c planning Recommend upper endoscopy after d/c Additional orders as above Code status: 1 Possible d/c in AM
[2017-04-19] MEDS: Insulin Aspart 100 Units/ML 3 ML Pen SUBCUT SCH (22:16)
[2017-04-20] MEDS: methylPREDNISolone Sodium Succinate 40 MG/1 ML SDV IVPUSH SCH ×2 (04:01→16:39)
[2017-04-20] MEDS: Albuterol/Ipratropium 3.0-0.5 MG/3 ML Neb Soln NEB SCH ×4 (05:37→20:12)
[2017-04-20] MEDS: Mometasone Furoate Powder 220 MCG/Puff 14 Dose Inhaler INH SCH ×2 (05:37→20:12)
[2017-04-20] MEDS: metFORMIN 500 MG Tab PO SCH (07:10)
[2017-04-20] MEDS: Pantoprazole 40 MG Tab.CR PO SCH ×2 (07:10→16:39)
[2017-04-20] MEDS ORDERED: Calcium Carbonate 500 MG Tab.Chew PO PRN (08:15)
--- NOTE | 2017-04-20 08:21 | PCM.PN ---
- General Info Date of Service: 04/20/17 Admission Dx/Problem (Free Text): PNA Subjective Update: Follow Up Functional Status: Reports: Pain Controlled, Tolerating Diet, Ambulating, Urinating. Denies: New Symptoms - Review of Systems General: Denies: Fever, Weakness, Fatigue, Malaise, Chills, Night Sweats HEENT: Denies: Dysphasia Pulmonary: Denies: Shortness of Breath, Cough, Sputum, Wheezing Cardiovascular: Denies: Chest Pain, Palpitations, Dyspnea on Exertion, Orthopnea Gastrointestinal: Reports: Abdominal Pain, Nausea, Vomiting, Other (Again she had another episode of severe pyrosis ). Denies: Decreased Appetite, Diarrhea, Difficulty Swallowing Genitourinary: Reports: No Symptoms Musculoskeletal: Reports: No Symptoms Skin: Denies: Cyanosis, Jaundice Neurological: Denies: Confusion, Dizziness, Difficulty Walking, Weakness, Gait Disturbance Psychiatric: Denies: Depression, Mood Lability, Agitation, Cravings - Patient Data Vitals - Most Recent: Last Vital Signs Temp 36.7 C 04/20/17 03:04 Pulse 84 04/20/17 03:04 Resp 21 H 04/20/17 03:04 BP 162/99 H 04/20/17 03:05 Pulse Ox 96 04/20/17 03:04 Weight - Most Recent: 81.284 kg I&O - Last 24 Hours: Intake & Output 04/19/17 04/20/17 04/20/17 22:59 06:59 14:59 Intake Total 500 550 Output Total 650 400 Balance -150 150 Lab Results Last 24 Hours: Laboratory Results - last 24 hr 04/19/17 04/19/17 04/19/17 Range/Units 05:43 10:12 17:44 WBC (3.98-10.04) K/mm3 RBC (3.98-5.22) M/mm3 Hgb (11.2-15.7) gm/L Hct (34.1-44.9) % MCV (79.4-94.8) fl MCH (25.6-32.2) pg MCHC (32.2-35.5) g/dl RDW Std Deviation (36.4-46.3) fL Plt Count (182-369) K/mm3 MPV (9.4-12.3) fl Neut % (Auto) (34.0-71.1) % Lymph % (Auto) (19.3-51.7) % [facility] % (Auto) (4.7-12.5) % Eos % (Auto) (0.7-5.8) Baso % (Auto) (0.1-1.2) % Neut # (Auto) (1.56-6.13) K/mm3 Lymph # (Auto) (1.18-3.74) K/mm3 [facility] # (Auto) (0.24-0.36) K/mm3 Eos # (Auto) (0.04-0.36) K/mm3 Baso # (Auto) (0.01-0.08) K/mm3 Manual Slide Review Abnormal smear Sodium (136-145) mEq/L Potassium (3.5-5.1) mEq/L Chloride (98-107) mEq/L Carbon Dioxide (21-32) mEq/L Anion Gap (5-15) BUN (7-18) mg/dL Creatinine (0.55-1.02) mg/dL Est Cr Clr Drug Dosing mL/min Estimated GFR (MDRD) (>60) mL/min BUN/Creatinine Ratio (14-18) Glucose (83-115) mg/dL POC Glucose 262 H 224 H (83-110) mg/dL Lactic Acid (0.4-2.0) mmol/L Calcium (8.5-10.1) mg/dL Magnesium (1.8-2.4) mg/dl C-Reactive Protein (<1.0) mg/dL 04/19/17 04/20/17 04/20/17 Range/Units 21:06 06:10 06:10 WBC 19.50 H (3.98-10.04) K/mm3 RBC 4.04 (3.98-5.22) M/mm3 Hgb 11.9 (11.2-15.7) gm/L Hct 37.0 (34.1-44.9) % MCV 91.6 (79.4-94.8) fl MCH 29.5 (25.6-32.2) pg MCHC 32.2 (32.2-35.5) g/dl RDW Std Deviation 54.6 H (36.4-46.3) fL Plt Count 200 (182-369) K/mm3 MPV 11.3 (9.4-12.3) fl Neut % (Auto) 89.9 H (34.0-71.1) % Lymph % (Auto) 5.0 L (19.3-51.7) % [place] % (Auto) 4.6 L (4.7-12.5) % Eos % (Auto) 0 L (0.7-5.8) Baso % (Auto) 0.1 (0.1-1.2) % Neut # (Auto) 17.53 H (1.56-6.13) K/mm3 Lymph # (Auto) 0.98 L (1.18-3.74) K/mm3 [place] # (Auto) 0.90 H (0.24-0.36) K/mm3 Eos # (Auto) 0.00 L (0.04-0.36) K/mm3 Baso # (Auto) 0.01 (0.01-0.08) K/mm3 Manual Slide Review Sodium 135 L (136-145) mEq/L Potassium 4.5 (3.5-5.1) mEq/L Chloride 103 (98-107) mEq/L Carbon Dioxide 24 (21-32) mEq/L Anion Gap 12.5 (5-15) BUN 37 H (7-18) mg/dL Creatinine 1.3 H (0.55-1.02) mg/dL Est Cr Clr Drug Dosing 33.65 mL/min Estimated GFR (MDRD) 40 (>60) mL/min BUN/Creatinine Ratio 28.5 H (14-18) Glucose 175 H (83-115) mg/dL POC Glucose 321 H (83-110) mg/dL Lactic Acid (0.4-2.0) mmol/L Calcium 9.6 (8.5-10.1) mg/dL Magnesium 2.1 (1.8-2.4) mg/dl C-Reactive Protein 12.2 H* (<1.0) mg/dL 04/20/17 04/20/17 Range/Units 06:10 06:27 WBC (3.98-10.04) K/mm3 RBC (3.98-5.22) M/mm3 Hgb (11.2-15.7) gm/L Hct (34.1-44.9) % MCV (79.4-94.8) fl MCH (25.6-32.2) pg MCHC (32.2-35.5) g/dl RDW Std Deviation (36.4-46.3) fL Plt Count (182-369) K/mm3 MPV (9.4-12.3) fl Neut % (Auto) (34.0-71.1) % Lymph % (Auto) (19.3-51.7) % [facility] % (Auto) (4.7-12.5) % Eos % (Auto) (0.7-5.8) Baso % (Auto) (0.1-1.2) % Neut # (Auto) (1.56-6.13) K/mm3 Lymph # (Auto) (1.18-3.74) K/mm3 [facility] # (Auto) (0.24-0.36) K/mm3 Eos # (Auto) (0.04-0.36) K/mm3 Baso # (Auto) (0.01-0.08) K/mm3 Manual Slide Review Sodium (136-145) mEq/L Potassium (3.5-5.1) mEq/L Chloride (98-107) mEq/L Carbon Dioxide (21-32) mEq/L Anion Gap (5-15) BUN (7-18) mg/dL Creatinine (0.55-1.02) mg/dL Est Cr Clr Drug Dosing mL/min Estimated GFR (MDRD) (>60) mL/min BUN/Creatinine Ratio (14-18) Glucose (83-115) mg/dL POC Glucose 201 H (83-110) mg/dL Lactic Acid 1.9 (0.4-2.0) mmol/L Calcium (8.5-10.1) mg/dL Magnesium (1.8-2.4) mg/dl C-Reactive Protein (<1.0) mg/dL Darryl Results Last 24 Hours: Microbiology 04/18/17 06:55 Respiratory Virus Panel (PCR) (DARRYL) - Final Nasopharyngeal Swab - Nare, Unspecified Med Orders - Current: Current Medications Acetaminophen (Tylenol) 650 mg PO Q6H PRN PRN Reason: Pain/Fever Last Admin: 04/18/17 11:34 Dose: 650 mg Albuterol (Proventil Neb Soln) 2.5 mg NEB Q4HRRT PRN PRN Reason: Shortness of Breath Last Admin: 04/18/17 04:23 Dose: 2.5 mg Albuterol/Ipratropium (Duoneb 3.0-0.5 Mg/3 Ml) 3 ml NEB QIDRT [facility] Last Admin: 04/20/17 05:37 Dose: 3 ml Allopurinol (Zyloprim) 300 mg PO DAILY [facility] Amlodipine Besylate (Norvasc) 5 mg PO DAILY [facility] Aspirin (Aspirin) 81 mg PO DAILY [facility] Atenolol (Tenormin) 50 mg PO DAILY [facility] Calcium Carbonate/Glycine (Tums) 1,000 mg PO Q4HR PRN PRN Reason: Indigestion Dextrose/Water (Dextrose 50% In Water) 50 ml IVPUSH ASDIRECTED PRN PRN Reason: Hypoglycemia Docusate Sodium (Colace) 100 mg PO BID [facility] Last Admin: 04/19/17 22:16 Dose: 100 mg Doxycycline Hyclate (Vibramycin) 100 mg PO Q12H [facility] Last Admin: 04/19/17 22:16 Dose: 100 mg Hydralazine HCl (Apresoline) 20 mg IVPUSH Q4H PRN PRN Reason: Hypertension Last Admin: 04/20/17 03:56 Dose: 20 mg Insulin Aspart (Novolog) 0 unit SUBCUT QIDACANDBED [facility] PRN Reason: Protocol Last Admin: 04/19/17 22:16 Dose: 4 units Lorazepam (Ativan) 2 mg IVPUSH Q4H PRN PRN Reason: Seizures Magnesium Sulfate (Pharmacy To Dose - Magnesium Replacement) 1 dose .XX ASDIRECTED [facility] Metformin HCl (Glucophage) 500 mg PO WITHBREAKFAST [facility] Last Admin: 04/20/17 07:10 Dose: 500 mg Methylprednisolone Sodium Succinate (Solu-Medrol) 40 mg IVPUSH Q12H [facility] Last Admin: 04/20/17 04:01 Dose: 40 mg Metoclopramide HCl (Reglan) 5 mg IVPUSH Q6H PRN PRN Reason: Nausea Last Admin: 04/19/17 01:06 Dose: 5 mg Metoprolol Tartrate (Lopressor) 5 mg IVPUSH Q4H PRN PRN Reason: Tachycardia Miscellaneous Information (Remove Patch) 0 ea TRDERM Q72H [facility] Mometasone Furoate (Asmanex 220 Mcg) 1 puff INH BIDRT [facility] Last Admin: 04/20/17 05:37 Dose: 1 puff Nitroglycerin (Nitrostat) 0.4 mg SL ASDIRECTED PRN PRN Reason: Chest Pain Ondansetron HCl (Zofran) 4 mg IVPUSH Q4H PRN PRN Reason: Nausea Last Admin: 04/18/17 23:53 Dose: 4 mg Pantoprazole Sodium (Protonix) 40 mg PO DAILY@0700 [facility] Last Admin: 04/20/17 07:10 Dose: 40 mg Potassium Chloride (Klor-Con 10) 10 meq PO DAILY [facility] Last Admin: 04/19/17 09:44 Dose: 10 meq Potassium Chloride (Pharmacy To Dose - Potassium Replacement) 1 dose .XX ASDIRECTED [facility] Scopolamine (Scopolamine) 1 each TRDERM Q72H PRN PRN Reason: Nausea Last Admin: 04/18/17 13:11 Dose: 1 each Sertraline HCl (Zoloft) 25 mg PO DAILY [facility] Last Admin: 04/19/17 09:45 Dose: 25 mg Sodium Chloride (Saline Flush) 10 ml FLUSH ASDIRECTED PRN PRN Reason: Keep Vein Open Last Admin: 04/17/17 20:14 Dose: 10 ml Temazepam (Restoril) 7.5 mg PO BEDTIME PRN PRN Reason: Insomnia Discontinued Medications Acetaminophen (Tylenol) 975 mg PO NOW ONE Stop: 04/17/17 20:11 Last Admin: 04/17/17 20:14 Dose: 975 mg Albuterol/Ipratropium (Duoneb 3.0-0.5 Mg/3 Ml) 3 ml NEB ONETIME ONE Stop: 04/17/17 18:50 Last Admin: 04/17/17 18:54 Dose: 3 ml Albuterol/Ipratropium (Duoneb 3.0-0.5 Mg/3 Ml) Confirm Administered Dose 3 ml .ROUTE .STK-MED ONE Stop: 04/17/17 18:58 Last Admin: 04/17/17 18:54 Dose: Not Given Albuterol/Ipratropium (Duoneb 3.0-0.5 Mg/3 Ml) 3 ml NEB QIDRT [facility] Doxycycline Hyclate (Vibramycin) Confirm Administered Dose 100 mg .ROUTE .STK- MED ONE Stop: 03/12/18 00:03 Last Admin: 04/18/17 03:06 Dose: Not Given Furosemide (Lasix) 20 mg IVPUSH ONETIME ONE Stop: 04/18/17 07:01 Last Admin: 04/18/17 06:38 Dose: 20 mg Hydralazine HCl (Apresoline) 20 mg IVPUSH Q6H PRN PRN Reason: Hypertension Levofloxacin/Dextrose 750 mg/ (Premix) 150 mls @ 100 mls/hr IV ONETIME ONE Stop: 04/17/17 21:34 Last Admin: 04/17/17 20:11 Dose: 100 mls/hr Doxycycline Hyclate 100 mg/ (Sodium Chloride) 100 mls @ 100 mls/hr IV Q12HR [facility] Last Admin: 04/18/17 11:26 Dose: Not Given Sodium Chloride (Sodium Chloride 0.45%) 1,000 mls @ 100 mls/hr IV ASDIRECTED [facility] Stop: 04/18/17 10:30 Last Admin: 04/18/17 00:19 Dose: 100 mls/hr Magnesium Sulfate 2 gm/ Premix 50 mls @ 25 mls/hr IV ONETIME ONE Stop: 04/19/17 02:51 Last Admin: 04/19/17 01:07 Dose: 25 mls/hr Methylprednisolone Sodium Succinate (Solu-Medrol) 40 mg IVPUSH Q8H [facility] Last Admin: 04/19/17 17:11 Dose: 40 mg Metoclopramide HCl (Reglan) 5 mg IVPUSH Q6H [facility] Last Admin: 04/18/17 13:18 Dose: 5 mg Non-Formulary Medication (Omeprazole) 20 mg PO DAILY [facility] Potassium Chloride (Klor-Con M20) 40 meq PO ONETIME ONE Stop: 04/19/17 01:16 Last Admin: 04/19/17 01:19 Dose: 40 meq Potassium Chloride (Klor-Con M20) 20 meq PO ONETIME ONE Stop: 04/19/17 06:01 Last Admin: 04/19/17 06:01 Dose: 20 meq - Exam General: Alert, Oriented, Cooperative, No Acute Distress HEENT: Pupils Equal, Pupils Reactive, Mucous Membr. Moist/[place] Neck: Supple, Trachea Midline Lungs: Normal Respiratory Effort, Wheezing (occasional) Cardiovascular: Regular Rate, Regular Rhythm GI/Abdominal Exam: Normal Bowel Sounds, Soft, Non-Tender, No Organomegaly, No Distention, No Abnormal Bruit, No Mass, Other (epigastric tenderness). No: Guarding, Rigid, Rebound, Tender (Female) Exam: Deferred Back Exam: Normal Inspection, Muscle Spasm Extremities: Normal Inspection, Normal Range of Motion, Non-Tender, No Pedal Edema, Normal Capillary Refill Peripheral Pulses: 2+: Dorsalis Pedis (L), Dorsalis Pedis (R) Skin: Warm, Dry, Intact Neurological: No New Focal Deficit Psy/Mental Status: Alert, Normal Affect, Normal Mood - Problem List Review Problem List Initiated/Reviewed/Updated: Yes - My Orders Last 24 Hours: My Active Orders 04/20/17 05:00 methylPREDNISolone Sod Succ [Solu-MEDROL] 40 mg IVPUSH Q12H 04/20/17 08:15 Calcium Carbonate [Tums] 1,000 mg PO Q4HR PRN 04/21/17 13:00 Remove Patch 0 ea TRDERM Q72H - Plan Plan:: Impression: Acute: Bronchitis vs Aspiration PNA - 2/2 Mycoplasma PNA and RSV - Continue current treatment - Initial CXR no obvious infiltrate; repeat shows clear lungs - Continue oral Vibramycin 100 mg po Q12H (day 4 of treatment) - Goal 5 day course of treatment COPD, Stable - 2/2 Mycoplasma Pneumonia Infection and RSV - Continue supplemental O2 at 2l/m, Bronchodilators, IV Magnesium Sulfate and IV Steroids Intermittent Nausea and Vomiting - 2/2 GERD/Pyrosis and Hiatal Hernia - Continue PRN Reglan and Scopolamine Patch - She is already on PPI; will add tums - She tolerates regular diet and no issues with chewing and swallowing - NPO for now except ice chips, sips of water and oral medications - Unable to perform esophageal/barium study; radiologist is not able to perform test Worsening GERD/Pyrosis in the setting of Hiatal hernia - Continue PPI and tubs; may consider adding H2B - Advised patient no food before bedtime and after each meal, she is to stay up right for at least 30 mins to avoid reflux - Dietary consult for heart burn - eval for upper endoscopy; called Dr. Moncada and will come and see her this afternoon Leukocytosis - 2/2 infection but she is also receiving steroids - WBC 12.16 --> 18.52-->18.95--> 19.50 - CRP 3.4 --> 7.6--> 18.1--> 12.2; improving - 2/2 above - Treatment as above Resolved: S/p Respiratory distress, hypoxia - Sick contact, unknown - Bronchitis vs Aspiration Pneumonitis - Had multiple emesis overnight Hypomagnesemia - Mg 1.6 --> 1.3--> 2.2 - 2/2 Inadequate intake - Replete and monitor Chronic: CAD HTN HLD Hypoxia on 2L NC IBS/GERD DM2, Controlled CKD Stage 3 Former tobacco User OA Gout Eczema Obesity Anxiety Depression Plan: She remains clinically stable Continue current treatment, Routine Daily labs, and RT/PT/OT DVT/GI prophylaxis Encourage to use IS and ambulate as tolerated [facility] for Nursing and PT CM/SW for d/c planning Dr. Moncada to come and see her this afternoon Additional orders as above Code status: 1 Hold off planned discharge
[2017-04-20] MEDS ORDERED: NITROGLYCERIN 2.5 MG PO ONE (08:25)
[2017-04-20] MEDS: Insulin Aspart 100 Units/ML 3 ML Pen SUBCUT SCH ×4 (08:39→21:38)
[2017-04-20] MEDS: Atenolol 50 MG Tab PO SCH (08:43)
[2017-04-20] MEDS: amLODIPine 5 MG Tab PO SCH (08:44)
[2017-04-20] MEDS: Aspirin 81 MG Tab.Chew PO SCH (08:44)
[2017-04-20] MEDS: Allopurinol 300 MG Tab PO SCH (08:44)
[2017-04-20] MEDS: Sertraline 25 MG Tab PO SCH (08:44)
[2017-04-20] MEDS: Docusate Sodium 100 MG Cap PO SCH ×2 (08:44→21:04)
[2017-04-20] MEDS: Potassium Chloride 10 MEQ Tab.ER PO SCH (08:44)
[2017-04-20] MEDS: Doxycycline 100 MG Cap PO SCH ×2 (10:54→22:00)
[2017-04-20] MEDS ORDERED: Bisacodyl 10 MG Supp RECTAL ONE (13:44)
--- NOTE | 2017-04-20 14:41 | PCM.CONSN ---
- General Info Date of Service: 04/20/17 - Patient Data Vitals - Most Recent: Last Vital Signs Temp 98.2 F 04/20/17 14:07 Pulse 68 04/20/17 14:16 Resp 28 H 04/20/17 14:07 BP 115/91 H 04/20/17 14:07 Pulse Ox 92 L 04/20/17 14:16 Weight - Most Recent: 81.284 kg I&O - Last 24 Hours: Intake & Output 04/19/17 04/20/17 04/20/17 23:59 07:59 15:59 Intake Total 180 550 Output Total 400 Balance 180 150 Lab Results Last 24 Hours: Laboratory Results - last 24 hr 04/19/17 04/19/17 04/20/17 Range/Units 17:44 21:06 06:10 WBC 19.50 H (3.98-10.04) K/mm3 RBC 4.04 (3.98-5.22) M/mm3 Hgb 11.9 (11.2-15.7) gm/L Hct 37.0 (34.1-44.9) % MCV 91.6 (79.4-94.8) fl MCH 29.5 (25.6-32.2) pg MCHC 32.2 (32.2-35.5) g/dl RDW Std Deviation 54.6 H (36.4-46.3) fL Plt Count 200 (182-369) K/mm3 MPV 11.3 (9.4-12.3) fl Neut % (Auto) 89.9 H (34.0-71.1) % Lymph % (Auto) 5.0 L (19.3-51.7) % [place] % (Auto) 4.6 L (4.7-12.5) % Eos % (Auto) 0 L (0.7-5.8) Baso % (Auto) 0.1 (0.1-1.2) % Neut # (Auto) 17.53 H (1.56-6.13) K/mm3 Lymph # (Auto) 0.98 L (1.18-3.74) K/mm3 [place] # (Auto) 0.90 H (0.24-0.36) K/mm3 Eos # (Auto) 0.00 L (0.04-0.36) K/mm3 Baso # (Auto) 0.01 (0.01-0.08) K/mm3 Manual Slide Review Abnormal smear Sodium (136-145) mEq/L Potassium (3.5-5.1) mEq/L Chloride (98-107) mEq/L Carbon Dioxide (21-32) mEq/L Anion Gap (5-15) BUN (7-18) mg/dL Creatinine (0.55-1.02) mg/dL Est Cr Clr Drug Dosing mL/min Estimated GFR (MDRD) (>60) mL/min BUN/Creatinine Ratio (14-18) Glucose (83-115) mg/dL POC Glucose 224 H 321 H (83-110) mg/dL Lactic Acid (0.4-2.0) mmol/L Calcium (8.5-10.1) mg/dL Magnesium (1.8-2.4) mg/dl C-Reactive Protein (<1.0) mg/dL 04/20/17 04/20/17 04/20/17 Range/Units 06:10 06:10 06:27 WBC (3.98-10.04) K/mm3 RBC (3.98-5.22) M/mm3 Hgb (11.2-15.7) gm/L Hct (34.1-44.9) % MCV (79.4-94.8) fl MCH (25.6-32.2) pg MCHC (32.2-35.5) g/dl RDW Std Deviation (36.4-46.3) fL Plt Count (182-369) K/mm3 MPV (9.4-12.3) fl Neut % (Auto) (34.0-71.1) % Lymph % (Auto) (19.3-51.7) % [place] % (Auto) (4.7-12.5) % Eos % (Auto) (0.7-5.8) Baso % (Auto) (0.1-1.2) % Neut # (Auto) (1.56-6.13) K/mm3 Lymph # (Auto) (1.18-3.74) K/mm3 [place] # (Auto) (0.24-0.36) K/mm3 Eos # (Auto) (0.04-0.36) K/mm3 Baso # (Auto) (0.01-0.08) K/mm3 Manual Slide Review Sodium 135 L (136-145) mEq/L Potassium 4.5 (3.5-5.1) mEq/L Chloride 103 (98-107) mEq/L Carbon Dioxide 24 (21-32) mEq/L Anion Gap 12.5 (5-15) BUN 37 H (7-18) mg/dL Creatinine 1.3 H (0.55-1.02) mg/dL Est Cr Clr Drug Dosing 33.65 mL/min Estimated GFR (MDRD) 40 (>60) mL/min BUN/Creatinine Ratio 28.5 H (14-18) Glucose 175 H (83-115) mg/dL POC Glucose 201 H (83-110) mg/dL Lactic Acid 1.9 (0.4-2.0) mmol/L Calcium 9.6 (8.5-10.1) mg/dL Magnesium 2.1 (1.8-2.4) mg/dl C-Reactive Protein 12.2 H* (<1.0) mg/dL 04/20/17 Range/Units 10:42 WBC (3.98-10.04) K/mm3 RBC (3.98-5.22) M/mm3 Hgb (11.2-15.7) gm/L Hct (34.1-44.9) % MCV (79.4-94.8) fl MCH (25.6-32.2) pg MCHC (32.2-35.5) g/dl RDW Std Deviation (36.4-46.3) fL Plt Count (182-369) K/mm3 MPV (9.4-12.3) fl Neut % (Auto) (34.0-71.1) % Lymph % (Auto) (19.3-51.7) % [place] % (Auto) (4.7-12.5) % Eos % (Auto) (0.7-5.8) Baso % (Auto) (0.1-1.2) % Neut # (Auto) (1.56-6.13) K/mm3 Lymph # (Auto) (1.18-3.74) K/mm3 [place] # (Auto) (0.24-0.36) K/mm3 Eos # (Auto) (0.04-0.36) K/mm3 Baso # (Auto) (0.01-0.08) K/mm3 Manual Slide Review Sodium (136-145) mEq/L Potassium (3.5-5.1) mEq/L Chloride (98-107) mEq/L Carbon Dioxide (21-32) mEq/L Anion Gap (5-15) BUN (7-18) mg/dL Creatinine (0.55-1.02) mg/dL Est Cr Clr Drug Dosing mL/min Estimated GFR (MDRD) (>60) mL/min BUN/Creatinine Ratio (14-18) Glucose (83-115) mg/dL POC Glucose 179 H (83-110) mg/dL Lactic Acid (0.4-2.0) mmol/L Calcium (8.5-10.1) mg/dL Magnesium (1.8-2.4) mg/dl C-Reactive Protein (<1.0) mg/dL Med Orders - Current: Current Medications Acetaminophen (Tylenol) 650 mg PO Q6H PRN PRN Reason: Pain/Fever Last Admin: 04/18/17 11:34 Dose: 650 mg Albuterol (Proventil Neb Soln) 2.5 mg NEB Q4HRRT PRN PRN Reason: Shortness of Breath Last Admin: 04/18/17 04:23 Dose: 2.5 mg Albuterol/Ipratropium (Duoneb 3.0-0.5 Mg/3 Ml) 3 ml NEB QIDRT ON [facility] OF [facility] Last Admin: 04/20/17 09:34 Dose: 3 ml Allopurinol (Zyloprim) 300 mg PO DAILY [facility] Last Admin: 04/20/17 08:44 Dose: 300 mg Amlodipine Besylate (Norvasc) 5 mg PO DAILY [facility] Last Admin: 04/20/17 08:44 Dose: 5 mg Aspirin (Aspirin) 81 mg PO DAILY [facility] Last Admin: 04/20/17 08:44 Dose: 81 mg Atenolol (Tenormin) 50 mg PO DAILY [facility] Last Admin: 04/20/17 08:43 Dose: 50 mg Calcium Carbonate/Glycine (Tums) 1,000 mg PO Q4H PRN PRN Reason: Indigestion Last Admin: 04/20/17 08:40 Dose: 1,000 mg Dextrose/Water (Dextrose 50% In Water) 50 ml IVPUSH ASDIRECTED PRN PRN Reason: Hypoglycemia Docusate Sodium (Colace) 100 mg PO BID [facility] OF [facility] Last Admin: 04/20/17 08:44 Dose: 100 mg Doxycycline Hyclate (Vibramycin) 100 mg PO Q12H [facility] Stop: 04/22/17 22:00 Last Admin: 04/20/17 10:54 Dose: 100 mg Hydralazine HCl (Apresoline) 20 mg IVPUSH Q4H PRN PRN Reason: Hypertension Last Admin: 04/20/17 03:56 Dose: 20 mg Insulin Aspart (Novolog) 0 unit SUBCUT QIDACANDBED ON LICENSE OF [facility] PRN Reason: Protocol Last Admin: 04/20/17 10:54 Dose: 1 units Lorazepam (Ativan) 2 mg IVPUSH Q4H PRN PRN Reason: Seizures Magnesium Sulfate (Pharmacy To Dose - Magnesium Replacement) 1 dose .XX ASDIRECTED ON LICENSE OF [facility] Metformin HCl (Glucophage) 500 mg PO WITHBREAKFAST ON LICENSE OF [facility] Last Admin: 04/20/17 07:10 Dose: 500 mg Methylprednisolone Sodium Succinate (Solu-Medrol) 40 mg IVPUSH Q12H ON [facility] OF [facility] Last Admin: 04/20/17 04:01 Dose: 40 mg Metoclopramide HCl (Reglan) 5 mg IVPUSH Q6H PRN PRN Reason: Nausea Last Admin: 04/19/17 01:06 Dose: 5 mg Metoprolol Tartrate (Lopressor) 5 mg IVPUSH Q4H PRN PRN Reason: Tachycardia Miscellaneous Information (Remove Patch) 0 ea TRDERM Q72H ON LICENSE OF [facility] Mometasone Furoate (Asmanex 220 Mcg) 1 puff INH BIDRT ON LICENSE OF [facility] Last Admin: 04/20/17 05:37 Dose: 1 puff Nitroglycerin (Nitrostat) 0.4 mg SL ASDIRECTED PRN PRN Reason: Chest Pain Ondansetron HCl (Zofran) 4 mg IVPUSH Q4H PRN PRN Reason: Nausea Last Admin: 04/18/17 23:53 Dose: 4 mg Pantoprazole Sodium (Protonix) 40 mg PO DAILY@0700 [facility] Last Admin: 04/20/17 07:10 Dose: 40 mg Potassium Chloride (Klor-Con 10) 10 meq PO DAILY ON LICENSE OF [facility] Last Admin: 04/20/17 08:44 Dose: 10 meq Potassium Chloride (Pharmacy To Dose - Potassium Replacement) 1 dose .XX ASDIRECTED ON LICENSE OF [facility] Scopolamine (Scopolamine) 1 each TRDERM Q72H PRN PRN Reason: Nausea Last Admin: 04/18/17 13:11 Dose: 1 each Sertraline HCl (Zoloft) 25 mg PO DAILY [facility] Last Admin: 04/20/17 08:44 Dose: 25 mg Sodium Chloride (Saline Flush) 10 ml FLUSH ASDIRECTED PRN PRN Reason: Keep Vein Open Last Admin: 04/17/17 20:14 Dose: 10 ml Temazepam (Restoril) 7.5 mg PO BEDTIME PRN PRN Reason: Insomnia Discontinued Medications Acetaminophen (Tylenol) 975 mg PO NOW ONE Stop: 04/17/17 20:11 Last Admin: 04/17/17 20:14 Dose: 975 mg Albuterol/Ipratropium (Duoneb 3.0-0.5 Mg/3 Ml) 3 ml NEB ONETIME ONE Stop: 04/17/17 18:50 Last Admin: 04/17/17 18:54 Dose: 3 ml Albuterol/Ipratropium (Duoneb 3.0-0.5 Mg/3 Ml) Confirm Administered Dose 3 ml .ROUTE .STK-MED ONE Stop: 04/17/17 18:58 Last Admin: 04/17/17 18:54 Dose: Not Given Albuterol/Ipratropium (Duoneb 3.0-0.5 Mg/3 Ml) 3 ml NEB QIDRT ON LICENSE OF [facility] Bisacodyl (Dulcolax) 10 mg RECTAL ONETIME ONE Stop: 04/20/17 13:45 Last Admin: 04/20/17 14:04 Dose: 10 mg Doxycycline Hyclate (Vibramycin) Confirm Administered Dose 100 mg .ROUTE .STK- MED ONE Stop: 04/18/17 00:03 Last Admin: 04/18/17 03:06 Dose: Not Given Furosemide (Lasix) 20 mg IVPUSH ONETIME ONE Stop: 04/18/17 07:01 Last Admin: 04/18/17 06:38 Dose: 20 mg Hydralazine HCl (Apresoline) 20 mg IVPUSH Q6H PRN PRN Reason: Hypertension Levofloxacin/Dextrose 750 mg/ (Premix) 150 mls @ 100 mls/hr IV ONETIME ONE Stop: 04/17/17 21:34 Last Admin: 04/17/17 20:11 Dose: 100 mls/hr Doxycycline Hyclate 100 mg/ (Sodium Chloride) 100 mls @ 100 mls/hr IV Q12HR ON LICENSE OF [facility] Last Admin: 04/18/17 11:26 Dose: Not Given Sodium Chloride (Sodium Chloride 0.45%) 1,000 mls @ 100 mls/hr IV ASDIRECTED ON LICENSE OF [facility] Stop: 04/18/17 10:30 Last Admin: 04/18/17 00:19 Dose: 100 mls/hr Magnesium Sulfate 2 gm/ Premix 50 mls @ 25 mls/hr IV ONETIME ONE Stop: 04/19/17 02:51 Last Admin: 04/19/17 01:07 Dose: 25 mls/hr Methylprednisolone Sodium Succinate (Solu-Medrol) 40 mg IVPUSH Q8H ON LICENSE OF [facility] Last Admin: 04/19/17 17:11 Dose: 40 mg Metoclopramide HCl (Reglan) 5 mg IVPUSH Q6H ON LICENSE OF [facility] Last Admin: 04/18/17 13:18 Dose: 5 mg Nitroglycerin (Nitroglycerin) 2.5 mg PO ONETIME ONE Stop: 04/20/17 08:26 Last Admin: 04/20/17 08:43 Dose: 2.5 mg Non-Formulary Medication (Omeprazole) 20 mg PO DAILY ON LICENSE OF [facility] Potassium Chloride (Klor-Con M20) 40 meq PO ONETIME ONE Stop: 04/19/17 01:16 Last Admin: 04/19/17 01:19 Dose: 40 meq Potassium Chloride (Klor-Con M20) 20 meq PO ONETIME ONE Stop: 04/19/17 06:01 Last Admin: 04/19/17 06:01 Dose: 20 meq Consult PN Assessment/Plan Procedures: Procedures ASSAY OF LIPASE (09/06/16) ASSAY OF MAGNESIUM (09/06/16) ASSAY OF TROPONIN QUANT (09/06/16) ASSAY THYROID STIM HORMONE (09/19/15) C-REACTIVE PROTEIN (03/12/14) CARDIOVASCULAR STRESS TEST (09/11/14) CHEST X-RAY 1 VIEW FRONTAL (09/06/16) CHEST X-RAY 2VW FRONTAL&LATL (09/19/15) COMPLETE CBC W/AUTO DIFF WBC (09/06/16) COMPREHEN METABOLIC PANEL (09/06/16) DXA BONE DENSITY AXIAL (02/21/17) ECG MONIT/REPRT UP TO 48 HRS (09/19/15) ECG MONIT/REPRT UP TO 48 HRS (09/19/15) ELECTROCARDIOGRAM TRACING (09/06/16) EMERGENCY DEPT VISIT (09/06/16) EMERGENCY DEPT VISIT (09/11/14) EMERGENCY DEPT VISIT (03/12/14) FIBRIN DEGRADATION QUANT (09/19/15) HT MUSCLE IMAGE SPECT MULT (09/11/14) HYDRATE IV INFUSION ADD-ON (09/06/16) LIPID PANEL (09/11/14) PROTHROMBIN TIME (09/11/14) ROUTINE VENIPUNCTURE (09/06/16) THER/PROPH/DIAG INJ IV PUSH (09/06/16) THER/PROPH/DIAG IV INF INIT (09/19/15) THROMBOPLASTIN TIME PARTIAL (09/11/14) TX/PRO/DX INJ NEW DRUG ADDON (09/06/16) URINALYSIS AUTO W/SCOPE (09/06/16) X-RAY EXAM OF ABDOMEN (09/06/16) Problem List Initiated/Reviewed/Updated: Yes Plan: surgical consult dictated OLVIN
--- NOTE | 2017-04-20 14:46 | PCM.PREANE ---
Preanesthetic Assessment - Anesthesia/Transfusion/Family Hx Anesthesia History: Prior Anesthesia Without Reaction Family History of Anesthesia Reaction: No Transfusion History: No Prior Transfusion(s) Intubation History: Unknown - Review of Systems General: No Symptoms, Weakness, Fatigue, Malaise Pulmonary: No Symptoms (Quit smoking 1989/ COPD noted with O2 used at night and with activity.), Shortness of Breath, Cough, Sputum (yellow/green color) Cardiovascular: No Symptoms (HTN, CAD with 2 stents, and angioplasty/history of [place]), Dyspnea on Exertion Gastrointestinal: No Symptoms (GERD/hiatal hernia/ IBS), Constipation, Decreased Appetite Neurological: No Symptoms Other: Reports: None (Renal disease noted.), Easy Bruising, Diabetes, Sinus Problem, Depression, Anxiety - Physical Assessment NPO Status Date: 04/19/17 NPO Status Time: 19:30 Pulse: 68 O2 Sat by Pulse Oximetry: 92 Respiratory Rate: 28 Blood Pressure: 115/91 Temperature: 36.8 C Vital Signs: Last Vital Signs Temp 36.8 C 04/20/17 14:07 Pulse 68 04/20/17 14:16 Resp 28 H 04/20/17 14:07 BP 115/91 H 04/20/17 14:07 Pulse Ox 92 L 04/20/17 14:16 Height: 1.65 m Weight: 81.284 kg ASA Class: 3E Mental Status: Alert & Oriented x3 Airway Class: Mallampati = 2 Dentition: Reports: Dentures Thyro-Mental Finger Breadths: 3 Mouth Opening Finger Breadths: 3 ROM/Head Extension: Full Lungs: Clear to Auscultation, Crackles, Rhonchi (occasional scattered.) Cardiovascular: Regular Rate, Regular Rhythm, No Murmurs - Lab Values: Laboratory Last Values WBC 19.50 K/mm3 (3.98-10.04) H 04/20/17 06:10 RBC 4.04 M/mm3 (3.98-5.22) 04/20/17 06:10 Hgb 11.9 gm/L (11.2-15.7) 04/20/17 06:10 Hct 37.0 % (34.1-44.9) 04/20/17 06:10 MCV 91.6 fl (79.4-94.8) 04/20/17 06:10 MCH 29.5 pg (25.6-32.2) 04/20/17 06:10 MCHC 32.2 g/dl (32.2-35.5) 04/20/17 06:10 RDW Std Deviation 54.6 fL (36.4-46.3) H 04/20/17 06:10 Plt Count 200 K/mm3 (182-369) 04/20/17 06:10 MPV 11.3 fl (9.4-12.3) 04/20/17 06:10 Neut % (Auto) 89.9 % (34.0-71.1) H 04/20/17 06:10 Lymph % (Auto) 5.0 % (19.3-51.7) L 04/20/17 06:10 [place] % (Auto) 4.6 % (4.7-12.5) L 04/20/17 06:10 Eos % (Auto) 0 (0.7-5.8) L 04/20/17 06:10 Baso % (Auto) 0.1 % (0.1-1.2) 04/20/17 06:10 Neut # (Auto) 17.53 K/mm3 (1.56-6.13) H 04/20/17 06:10 Lymph # (Auto) 0.98 K/mm3 (1.18-3.74) L 04/20/17 06:10 [place] # (Auto) 0.90 K/mm3 (0.24-0.36) H 04/20/17 06:10 Eos # (Auto) 0.00 K/mm3 (0.04-0.36) L 04/20/17 06:10 Baso # (Auto) 0.01 K/mm3 (0.01-0.08) 04/20/17 06:10 Neutrophils % (Manual) 81 % (40-60) H 04/17/17 18:44 Band Neutrophils % 0 % (0-10) 04/17/17 18:44 Lymphocytes % (Manual) 11 % (20-40) L 04/17/17 18:44 Atypical Lymphs % 0 % 04/17/17 18:44 Monocytes % (Manual) 7 % (2-10) 04/17/17 18:44 Eosinophils % (Manual) 1 % (0.7-5.8) 04/17/17 18:44 Basophils % (Manual) 0 (0.1-1.2) L 04/17/17 18:44 Manual Slide Review Abnormal smear 04/20/17 06:10 Platelet Estimate Adequate 04/17/17 18:44 RBC Morph Comment Normal 04/17/17 18:44 Sodium 135 mEq/L (136-145) L 04/20/17 06:10 Potassium 4.5 mEq/L (3.5-5.1) 04/20/17 06:10 Chloride 103 mEq/L (98-107) 04/20/17 06:10 Carbon Dioxide 24 mEq/L (21-32) 04/20/17 06:10 Anion Gap 12.5 (5-15) 04/20/17 06:10 BUN 37 mg/dL (7-18) H 04/20/17 06:10 Creatinine 1.3 mg/dL (0.55-1.02) H 04/20/17 06:10 Est Cr Clr Drug Dosing 33.65 mL/min 04/20/17 06:10 Estimated GFR (MDRD) 40 mL/min (>60) 04/20/17 06:10 BUN/Creatinine Ratio 28.5 (14-18) H 04/20/17 06:10 Glucose 175 mg/dL (83-115) H 04/20/17 06:10 POC Glucose 179 mg/dL (83-110) H 04/20/17 10:42 Hemoglobin A1c 5.80 % (4.50-6.20) 04/18/17 05:12 Lactic Acid 1.9 mmol/L (0.4-2.0) 04/20/17 06:10 Calcium 9.6 mg/dL (8.5-10.1) 04/20/17 06:10 Magnesium 2.1 mg/dl (1.8-2.4) 04/20/17 06:10 Total Bilirubin 0.4 mg/dL (0.2-1.0) 04/17/17 18:44 AST 28 U/L (15-37) 04/17/17 18:44 ALT 24 U/L (14-59) 04/17/17 18:44 Alkaline Phosphatase 52 U/L (46-116) 04/17/17 18:44 Troponin I < 0.017 ng/mL (0.00-0.056) 04/18/17 05:12 C-Reactive Protein 12.2 mg/dL (<1.0) H* 04/20/17 06:10 NT-Pro-B Natriuret Pep 3283 pg/mL (0-450) H 04/17/17 18:44 Total Protein 7.2 g/dl (6.4-8.2) 04/17/17 18:44 Albumin 2.9 g/dl (3.4-5.0) L 04/17/17 18:44 Globulin 4.3 gm/dL 04/17/17 18:44 Albumin/Globulin Ratio 0.7 (1-2) L 04/17/17 18:44 Mycoplasma pneumon IgM Positive (NEGATIVE) H 04/17/17 18:44 Above labs reviewed and noted and within acceptable ranges to proceed with scheduled EGD. - Imaging/EKG Impressions: EKG: SR with ventricular trigeminy rate=71 CXR: Mild/early CHF suspected. - Allergies Allergies/Adverse Reactions: Allergies Allergy/AdvReac Type Severity Reaction Status Date / Time Penicillins Allergy Swelling Verified 04/18/17 00:37 - Anesthesia Plan Pre-Op Medication Ordered: Beta Alfonso Beta Alfonso: Atenolol Med Last Dose Date: 04/20/17 Med Last Dose Time: 08:43 - Acknowledgements Anesthesia Type Planned: MAC Pt an Appropriate Candidate for the Planned Anesthesia: Yes Alternatives and Risks of Anesthesia Discussed w Pt/Guardian: Yes Pt/Guardian Understands and Agrees with Anesthesia Plan: Yes PreAnesthesia Questionnaire HEENT History: Reports: Impaired Vision Other HEENT History: wears eyeglasses Cardiovascular History: Reports: Angina, CAD, High Cholesterol, Hypertension Respiratory History: Reports: COPD, Pneumonia, Recurrent Other Respiratory History: Has oxygen at home at night - 2 L per [place]. Gastrointestinal History: Reports: GERD, Irritable Bowel Syndrome Genitourinary History: Reports: Chronic Renal Insuffiency Other Genitourinary History: renal disease CASE MANAGEMENT SPECIALIST History: Reports: Other OB/BYN History: hysterectomy Musculoskeletal History: Reports: Arthritis, Gout Other Musculoskeletal History: sciatica Psychiatric History: Reports: Anxiety, Depression Endocrine/Metabolic History: Reports: Diabetes, Type II, Obesity/BMI 30+ Dermatologic History: Reports: Eczema Other Dermatologic History: eczema - Infectious Disease History Infectious Disease History: Reports: Influenza - Past Surgical History HEENT Surgical History: Reports: Cataract Surgery Cardiovascular Surgical History: Reports: Coronary Artery Stent, Percutaneous Transluminal Angioplasty GI Surgical History: Reports: Colonoscopy, Hernia Repair/Other Musculoskeletal Surgical History: Reports: Carpal Tunnel - SUBSTANCE USE Smoking Status *Q: Former Smoker Tobacco Use Within Last Twelve Months: No Second Hand Smoke Exposure: No Recreational Drug Use History: No - HOME MEDS Home Medications: Home Meds Albuterol/Ipratropium [DuoNeb 3.0-0.5 MG/3 ML] 1 dose INH BID 03/12/14 [History] Allopurinol [Zyloprim] 300 mg PO DAILY 03/12/14 [History] Aspirin [Ruben Chewable Aspirin] 81 mg PO DAILY 03/12/14 [History] Lisinopril 20 mg PO DAILY 03/12/14 [History] Nitroglycerin [Nitrostat] 0.4 mg PO ASDIRECTED PRN 03/12/14 [History] amLODIPine [Norvasc] 5 mg PO DAILY 03/12/14 [History] atorvaSTATin [Lipitor] 40 mg PO BEDTIME 03/12/14 [History] Docusate Sodium [Colace] 100 mg PO BID 09/11/14 [History] Furosemide 40 mg PO DAILY 09/11/14 [History] Mometasone Furoate [Asmanex 220 MCG] 1 puff INH BID 09/11/14 [History] Potassium Chloride 10 meq PO DAILY 09/11/14 [History] metFORMIN [Glucophage] 500 mg PO DAILY 09/19/15 [History] Atenolol [Tenormin] 50 mg PO DAILY 04/17/17 [History] Cholecalciferol (Vitamin D3) [Vitamin D3] 1,000 mg PO DAILY 04/17/17 [History] Esomeprazole Magnesium [Nexium] 20 mg PO DAILY 04/17/17 [History] Sertraline [Zoloft] 25 mg PO DAILY 04/17/17 [History] Albuterol [Proventil HFA] 2 puff INH Q6H PRN 04/18/17 [History] - CURRENT (IN HOUSE) MEDS Current Meds: Current Medications Acetaminophen (Tylenol) 650 mg PO Q6H PRN PRN Reason: Pain/Fever Last Admin: 04/18/17 11:34 Dose: 650 mg Albuterol (Proventil Neb Soln) 2.5 mg NEB Q4HRRT PRN PRN Reason: Shortness of Breath Last Admin: 04/18/17 04:23 Dose: 2.5 mg Albuterol/Ipratropium (Duoneb 3.0-0.5 Mg/3 Ml) 3 ml NEB QIDRT [facility] Last Admin: 04/20/17 09:34 Dose: 3 ml Allopurinol (Zyloprim) 300 mg PO DAILY [facility] Last Admin: 04/20/17 08:44 Dose: 300 mg Amlodipine Besylate (Norvasc) 5 mg PO DAILY [facility] Last Admin: 04/20/17 08:44 Dose: 5 mg Aspirin (Aspirin) 81 mg PO DAILY [facility] Last Admin: 04/20/17 08:44 Dose: 81 mg Atenolol (Tenormin) 50 mg PO DAILY [facility] Last Admin: 04/20/17 08:43 Dose: 50 mg Calcium Carbonate/Glycine (Tums) 1,000 mg PO Q4H PRN PRN Reason: Indigestion Last Admin: 04/20/17 08:40 Dose: 1,000 mg Dextrose/Water (Dextrose 50% In Water) 50 ml IVPUSH ASDIRECTED PRN PRN Reason: Hypoglycemia Docusate Sodium (Colace) 100 mg PO BID [facility] Last Admin: 04/20/17 08:44 Dose: 100 mg Doxycycline Hyclate (Vibramycin) 100 mg PO Q12H [facility] Stop: 04/22/17 22:00 Last Admin: 04/20/17 10:54 Dose: 100 mg Hydralazine HCl (Apresoline) 20 mg IVPUSH Q4H PRN PRN Reason: Hypertension Last Admin: 04/20/17 03:56 Dose: 20 mg Insulin Aspart (Novolog) 0 unit SUBCUT QIDACANDBED [facility] PRN Reason: Protocol Last Admin: 04/20/17 10:54 Dose: 1 units Lorazepam (Ativan) 2 mg IVPUSH Q4H PRN PRN Reason: Seizures Magnesium Sulfate (Pharmacy To Dose - Magnesium Replacement) 1 dose .XX ASDIRECTED [facility] Metformin HCl (Glucophage) 500 mg PO WITHBREAKFAST [facility] Last Admin: 04/20/17 07:10 Dose: 500 mg Methylprednisolone Sodium Succinate (Solu-Medrol) 40 mg IVPUSH Q12H [facility] Last Admin: 04/20/17 04:01 Dose: 40 mg Metoclopramide HCl (Reglan) 5 mg IVPUSH Q6H PRN PRN Reason: Nausea Last Admin: 04/19/17 01:06 Dose: 5 mg Metoprolol Tartrate (Lopressor) 5 mg IVPUSH Q4H PRN PRN Reason: Tachycardia Miscellaneous Information (Remove Patch) 0 ea TRDERM Q72H [facility] Mometasone Furoate (Asmanex 220 Mcg) 1 puff INH BIDRT [facility] Last Admin: 04/20/17 05:37 Dose: 1 puff Nitroglycerin (Nitrostat) 0.4 mg SL ASDIRECTED PRN PRN Reason: Chest Pain Ondansetron HCl (Zofran) 4 mg IVPUSH Q4H PRN PRN Reason: Nausea Last Admin: 04/18/17 23:53 Dose: 4 mg Pantoprazole Sodium (Protonix) 40 mg PO DAILY@0700 [facility] Last Admin: 04/20/17 07:10 Dose: 40 mg Potassium Chloride (Klor-Con 10) 10 meq PO DAILY [facility] Last Admin: 04/20/17 08:44 Dose: 10 meq Potassium Chloride (Pharmacy To Dose - Potassium Replacement) 1 dose .XX ASDIRECTED [facility] Scopolamine (Scopolamine) 1 each TRDERM Q72H PRN PRN Reason: Nausea Last Admin: 04/18/17 13:11 Dose: 1 each Sertraline HCl (Zoloft) 25 mg PO DAILY [facility] Last Admin: 04/20/17 08:44 Dose: 25 mg Sodium Chloride (Saline Flush) 10 ml FLUSH ASDIRECTED PRN PRN Reason: Keep Vein Open Last Admin: 04/17/17 20:14 Dose: 10 ml Temazepam (Restoril) 7.5 mg PO BEDTIME PRN PRN Reason: Insomnia Discontinued Medications Acetaminophen (Tylenol) 975 mg PO NOW ONE Stop: 04/17/17 20:11 Last Admin: 04/17/17 20:14 Dose: 975 mg Albuterol/Ipratropium (Duoneb 3.0-0.5 Mg/3 Ml) 3 ml NEB ONETIME ONE Stop: 04/17/17 18:50 Last Admin: 04/17/17 18:54 Dose: 3 ml Albuterol/Ipratropium (Duoneb 3.0-0.5 Mg/3 Ml) Confirm Administered Dose 3 ml .ROUTE .STK-MED ONE Stop: 04/17/17 18:58 Last Admin: 04/17/17 18:54 Dose: Not Given Albuterol/Ipratropium (Duoneb 3.0-0.5 Mg/3 Ml) 3 ml NEB QIDRT [facility] Bisacodyl (Dulcolax) 10 mg RECTAL ONETIME ONE Stop: 04/20/17 13:45 Last Admin: 04/20/17 14:04 Dose: 10 mg Doxycycline Hyclate (Vibramycin) Confirm Administered Dose 100 mg .ROUTE .STK- MED ONE Stop: 04/18/17 00:03 Last Admin: 04/18/17 03:06 Dose: Not Given Furosemide (Lasix) 20 mg IVPUSH ONETIME ONE Stop: 04/18/17 07:01 Last Admin: 04/18/17 06:38 Dose: 20 mg Hydralazine HCl (Apresoline) 20 mg IVPUSH Q6H PRN PRN Reason: Hypertension Levofloxacin/Dextrose 750 mg/ (Premix) 150 mls @ 100 mls/hr IV ONETIME ONE Stop: 04/17/17 21:34 Last Admin: 04/17/17 20:11 Dose: 100 mls/hr Doxycycline Hyclate 100 mg/ (Sodium Chloride) 100 mls @ 100 mls/hr IV Q12HR [facility] Last Admin: 04/18/17 11:26 Dose: Not Given Sodium Chloride (Sodium Chloride 0.45%) 1,000 mls @ 100 mls/hr IV ASDIRECTED [facility] Stop: 04/18/17 10:30 Last Admin: 04/18/17 00:19 Dose: 100 mls/hr Magnesium Sulfate 2 gm/ Premix 50 mls @ 25 mls/hr IV ONETIME ONE Stop: 04/19/17 02:51 Last Admin: 04/19/17 01:07 Dose: 25 mls/hr Methylprednisolone Sodium Succinate (Solu-Medrol) 40 mg IVPUSH Q8H [facility] Last Admin: 04/19/17 17:11 Dose: 40 mg Metoclopramide HCl (Reglan) 5 mg IVPUSH Q6H [facility] Last Admin: 04/18/17 13:18 Dose: 5 mg Nitroglycerin (Nitroglycerin) 2.5 mg PO ONETIME ONE Stop: 04/20/17 08:26 Last Admin: 04/20/17 08:43 Dose: 2.5 mg Non-Formulary Medication (Omeprazole) 20 mg PO DAILY [facility] Potassium Chloride (Klor-Con M20) 40 meq PO ONETIME ONE Stop: 04/19/17 01:16 Last Admin: 04/19/17 01:19 Dose: 40 meq Potassium Chloride (Klor-Con M20) 20 meq PO ONETIME ONE Stop: 04/19/17 06:01 Last Admin: 04/19/17 06:01 Dose: 20 meq
[2017-04-20] MEDS ORDERED: fentaNYL 100 MCG/2 ML SDV ONE (14:49)
[2017-04-20] MEDS ORDERED: Propofol 200 MG/20 ML SDV ONE (14:49)
[2017-04-20] MEDS ORDERED: Lactated Ringers 1,000 ML ONE (14:50)
[2017-04-20] MEDS ORDERED: Lidocaine 1% 4 ML ONE (14:50)
--- NOTE | 2017-04-20 15:39 | PCM.OPNOTE ---
- General Post-Op/Procedure Note Date of Surgery/Procedure: 04/20/17 Operative Procedure(s): egd with bx Pre Op Diagnosis: nausea and vomiting Post-Op Diagnosis: Same Anesthesia Technique: MAC Primary Surgeon: Clay Moncada EBL in mLs: 0 Complications: None Condition: Good Free Text/Narrative:: Intake & Output 04/19/17 04/20/17 04/20/17 23:59 07:59 15:59 Intake Total 180 550 Output Total 400 Balance 180 150
--- NOTE | 2017-04-20 15:42 | PCM48HPAN ---
Post Anesthesia Note - EVALUATION WITHIN 48HRS OF ANESTHETIC Vital Signs in Normal Range: Yes Patient Participated in Evaluation: Yes Respiratory Function Stable: Yes Airway Patent: Yes Cardiovascular Function Stable: Yes Hydration Status Stable: Yes Pain Control Satisfactory: Yes Nausea and Vomiting Control Satisfactory: Yes Mental Status Recovered: Yes
[2017-04-21] MEDS ORDERED: Magnesium Hydroxide 400 MG/5 ML Susp 30 ML Cup ONE (04:02)
[2017-04-21] MEDS ORDERED: guaiFENesin/Dextromethorphan 100-10 MG/5 ML Soln 5 ML Cup PO PRN (04:03)
[2017-04-21] MEDS ORDERED: Magnesium Hydroxide 400 MG/5 ML Susp 30 ML Cup PO ONE (04:04)
[2017-04-21] MEDS: methylPREDNISolone Sodium Succinate 40 MG/1 ML SDV IVPUSH SCH (04:13)
[2017-04-21] MEDS: Mometasone Furoate Powder 220 MCG/Puff 14 Dose Inhaler INH SCH (05:23)
[2017-04-21] MEDS: Albuterol/Ipratropium 3.0-0.5 MG/3 ML Neb Soln NEB SCH ×2 (05:23→08:59)
[2017-04-21] MEDS: metFORMIN 500 MG Tab PO SCH (06:29)
[2017-04-21] MEDS: Pantoprazole 40 MG Tab.CR PO SCH (06:29)
[2017-04-21] MEDS: Insulin Aspart 100 Units/ML 3 ML Pen SUBCUT SCH ×2 (06:29→11:59)
--- NOTE | 2017-04-21 06:49 | CONS ---
CONSULTING PHYSICIAN: Clay Moncada MD DATE OF CONSULTATION: 04/20/2017 HISTORY OF PRESENT ILLNESS: This is a 76-year-old who came into the hospital on the with green sputum, cough, and oxygen requirement. The patient was treated, but noted that she had some nausea and vomiting after she had a substitution of her Nexium with Protonix and a lot a heartburn. The patient has had heartburn for a number of years, it has been well controlled with Nexium until now. PAST MEDICAL HISTORY: COPD and she does take prednisone, history of gastroesophageal reflux, chronic renal failure, arthritis, gout, anxiety, diabetes type 2, and hypertension. REVIEW OF SYSTEMS: No chest pain, shortness of breath, cough, hoarseness, wheezing, fainting, weakness, numbness, convulsions. She is on oxygen. PAST SURGICAL HISTORY: Coronary artery stents, hernia repair, carpal tunnel. FAMILY HISTORY: Negative and noncontributory. PHYSICAL EXAMINATION: VITAL SIGNS: Reveals a temperature of 39, pulse 67, blood pressure 147/60, pulse oximetry 96% on O2. EYES: Sclerae white. Extraocular muscle motion normal. Oral cavity, healthy mucous membrane with mouth and tongue. NECK: Supple. No nodes. No thyromegaly. LUNGS: Clear. No rales, rhonchi, fremitus, dullness. HEART: Heart tones regular rate. No S3, S4, jugular venous distention. ABDOMEN: Soft. No tenderness, guarding, or rebound. EXTREMITIES: Upper and lower extremities, no angulation deformities. LABORATORY DATA: Laboratory reviewed. ASSESSMENT: Gastroesophageal reflux and history of nausea and vomiting; chronic obstructive pulmonary disease, on prednisone. PLAN: Plan for EGD. Discussed the procedure risks and complications, she understands and consents. MMODAL /[id number]
--- NOTE | 2017-04-21 06:56 | OR ---
DATE OF OPERATION: 04/20/2017 SURGEON: Clay Moncada MD PREOPERATIVE DIAGNOSIS: Nausea and vomiting. POSTOPERATIVE DIAGNOSIS: Nausea and vomiting. OPERATION PERFORMED: Esophagogastroduodenoscopy with biopsy done under IV sedation. FINDINGS: The second portion of the duodenum, duodenal bulb, and pyloric channel were normal. Antrum showed chronic gastritis. Body and cardia and fundus of the stomach unremarkable. There was a hiatal hernia with incompetence of hiatus and GE junction was located at 35 cm. There were some superficial erosions at the GE junction. Hiatal hernia pouch was unremarkable. Balance of the esophagus did not show any acute disease. Findings are consistent with esophagitis. DESCRIPTION OF PROCEDURE: The patient was taken to the endoscopy room, placed in a supine position, given some mild sedation, placed in left lateral position. Bite block was inserted and video Olympus gastroscope placed in the posterior oropharynx. Under direct vision threaded past the cricopharyngeus down the esophagus into the stomach. The stomach was insufflated, and the scope passed through the pylorus to the second portion of the duodenum and was slowly withdrawn showing normal second portion of the duodenum, duodenal bulb, and pyloric channel. Antrum showed chronic gastritis and this was biopsied. Body and cardia of the stomach unremarkable. The hiatus was incompetent with a large hiatal hernia. The scope was withdrawn to the hiatal hernia, pouch unremarkable. GE junction showed some superficial erosions consistent with acute esophagitis. Rest of the esophagus was viewed as the scope was withdrawn, was normal. The patient tolerated the procedure and sent to recovery room in a stable condition and will be followed up as needed. ANESTHESIA: ESTIMATED BLOOD LOSS: MMODAL /[id number]
[2017-04-21] MEDS: Aspirin 81 MG Tab.Chew PO SCH (08:22)
[2017-04-21] MEDS: Docusate Sodium 100 MG Cap PO SCH (08:22)
[2017-04-21] MEDS: Potassium Chloride 10 MEQ Tab.ER PO SCH (08:23)
[2017-04-21] MEDS: amLODIPine 5 MG Tab PO SCH (08:23)
[2017-04-21] MEDS: Atenolol 50 MG Tab PO SCH (08:24)
[2017-04-21] MEDS: Allopurinol 300 MG Tab PO SCH (08:24)
[2017-04-21] MEDS: Sertraline 25 MG Tab PO SCH (08:38)
[2017-04-21 10:49] VITALS: BP 112/47
--- NOTE | 2017-04-21 11:29 | PCM.DCSUM1 ---
Discharge Summary - Discharge Data Discharge Date: 04/21/17 Discharge Disposition: Home, Self-Care 01 Condition: Good - Discharge Diagnosis/Problem(s) (1) Pneumonia SNOMED Code(s): 513917163 ICD Code: J18.9 - PNEUMONIA, UNSPECIFIED ORGANISM Status: Acute Current Visit: Yes Qualifiers: Pneumonia type: due to Mycoplasma pneumoniae Laterality: right Lung location: lower lobe of lung Qualified Code(s): J15.7 - Pneumonia due to Mycoplasma pneumoniae (2) Hypomagnesemia SNOMED Code(s): 056700064 ICD Code: E83.42 - HYPOMAGNESEMIA Status: Acute Current Visit: No (3) COPD (chronic obstructive pulmonary disease) with acute bronchitis SNOMED Code(s): 719260531609270 ICD Code: J44.0 - CHRONIC OBSTRUCTIVE PULMON DISEASE W ACUTE LOWER RESP INFCT ; J20.9 - ACUTE BRONCHITIS, UNSPECIFIED Status: Acute Current Visit: Yes (4) Leukocytosis, unspecified SNOMED Code(s): 273529676 ICD Code: D72.829 - ELEVATED WHITE BLOOD CELL COUNT, UNSPECIFIED Status: Acute Current Visit: Yes (5) Respiratory distress SNOMED Code(s): 191503823 ICD Code: R06.03 - ACUTE RESPIRATORY DISTRESS Status: Acute Current Visit : Yes (6) Hiatal hernia with GERD and esophagitis SNOMED Code(s): 898604121 ICD Code: K44.9 - DIAPHRAGMATIC HERNIA WITHOUT OBSTRUCTION OR GANGRENE; K21.0 - GASTRO-ESOPHAGEAL REFLUX DISEASE WITH ESOPHAGITIS Status: Acute Current Visit: Yes - Patient Summary/Data Operative Procedure(s) Performed: egd with bx Consults: Consultations 04/17/17 22:20 Consult to Physical Therapy [PT Evaluation and Treatment] [CONS] Routine 04/17/17 22:21 Consult to Case Management [CONS] Routine Consult to Occupational Therapy [OT Evaluation and Treatment] [CONS] Routine 04/20/17 08:28 Consult to Dietary [Consult to Major Case Detective] [CONS] Routine 04/20/17 10:25 Consult to Physician [CONS] Routine - Patient Instructions Diet: Heart Healthy Diet, Usual Diet as Tolerated, Low Sodium, Diabetic Diet Activity: As Tolerated Driving: Do Not Drive Showering/Bathing: May Shower Notify Provider of: Fever, Increased Pain, Swelling and Redness, Nausea and/or Vomiting Other/Special Instructions: - Please take new medication as directed. - Resume all home medications. - Continue routine home activities without restrictions. - Follow daily salt/fluid restrictions as well "heart burn" diet. - Take 2 pills of lasix for sudden onset of shortness of breath or increased edema. - Continue to use IS (incentive spirometry) as directed. - Continue supplemental O2 as directed for hypoxia. - Call your family doctor for any questions or concerns after discharge. - Follow up with PCP in 1-2 week. - Come back or seek immediate care should your symptoms persist or get worse - Discharge Plan Prescriptions/Med Rec: Pantoprazole [ProTONIX] 40 mg PO BIDAC #60 tab.cr Home Medications: Home Meds Albuterol/Ipratropium [DuoNeb 3.0-0.5 MG/3 ML] 1 dose INH BID 03/12/14 [History] Allopurinol [Zyloprim] 300 mg PO DAILY 03/12/14 [History] Aspirin [Ruben Chewable Aspirin] 81 mg PO DAILY 03/12/14 [History] Lisinopril 20 mg PO DAILY 03/12/14 [History] Nitroglycerin [Nitrostat] 0.4 mg PO ASDIRECTED PRN 03/12/14 [History] amLODIPine [Norvasc] 5 mg PO DAILY 03/12/14 [History] atorvaSTATin [Lipitor] 40 mg PO BEDTIME 03/12/14 [History] Docusate Sodium [Colace] 100 mg PO BID 09/11/14 [History] Furosemide 40 mg PO DAILY 09/11/14 [History] Mometasone Furoate [Asmanex 220 MCG] 1 puff INH BID 09/11/14 [History] Potassium Chloride 10 meq PO DAILY 09/11/14 [History] metFORMIN [Glucophage] 500 mg PO DAILY 09/19/15 [History] Atenolol [Tenormin] 50 mg PO DAILY 04/17/17 [History] Cholecalciferol (Vitamin D3) [Vitamin D3] 1,000 mg PO DAILY 04/17/17 [History] Sertraline [Zoloft] 25 mg PO DAILY 04/17/17 [History] Albuterol [Proventil HFA] 2 puff INH Q6H PRN 04/18/17 [History] Pantoprazole [ProTONIX] 40 mg PO BIDAC #60 tab.cr 04/21/17 [Rx] Patient Handouts: Chronic Obstructive Pulmonary Disease Exacerbation, Easy-to- Read, Food Choices for Gastroesophageal Reflux Disease, Adult, [id number], Heartburn, [id number], Respiratory Syncytial Virus, Adult, Community-Acquired Pneumonia, Adult, [id number], Hernia, Adult, [id number] Referrals: Shell Arambula MD [Primary Care Provider] - 05/02/17 4:00 am ( Please follow-up with your primary care provider, Shell Aguilar, on May 02 at 400pm. ) - General Info Date of Service: 04/21/17 Admission Dx/Problem (Free Text: PNA Subjective Update: Follow Up Functional Status: Reports: Pain Controlled, Tolerating Diet, Ambulating, Urinating. Denies: New Symptoms - Patient Data Vitals - Most Recent: Last Vital Signs Temp 36.6 C 04/21/17 10:23 Pulse 64 04/21/17 10:23 Resp 20 04/21/17 10:23 BP 112/47 L 04/21/17 10:23 Pulse Ox 90 L 04/21/17 10:23 Weight - Most Recent: 80.966 kg I&O - Last 24 hours: Intake & Output 04/20/17 04/21/17 04/21/17 22:59 06:59 14:59 Intake Total 720 200 0 Output Total 500 100 Balance 220 100 0 Lab Results - Last 24 hrs: Laboratory Results - last 24 hr 04/20/17 04/20/17 04/21/17 Range/Units 16:38 21:13 05:30 WBC 15.46 H (3.98-10.04) K/mm3 RBC 4.01 (3.98-5.22) M/mm3 Hgb 11.8 (11.2-15.7) gm/L Hct 36.6 (34.1-44.9) % MCV 91.3 (79.4-94.8) fl MCH 29.4 (25.6-32.2) pg MCHC 32.2 (32.2-35.5) g/dl RDW Std Deviation 55.4 H (36.4-46.3) fL Plt Count 224 (182-369) K/mm3 MPV 11.1 (9.4-12.3) fl Neut % (Auto) 86.1 H (34.0-71.1) % Lymph % (Auto) 7.2 L (19.3-51.7) % [place] % (Auto) 6.5 (4.7-12.5) % Eos % (Auto) 0 L (0.7-5.8) Baso % (Auto) 0.2 (0.1-1.2) % Neut # (Auto) 13.30 H (1.56-6.13) K/mm3 Lymph # (Auto) 1.12 L (1.18-3.74) K/mm3 [place] # (Auto) 1.01 H (0.24-0.36) K/mm3 Eos # (Auto) 0.00 L (0.04-0.36) K/mm3 Baso # (Auto) 0.03 (0.01-0.08) K/mm3 Manual Slide Review Abnormal smear Sodium (136-145) mEq/L Potassium (3.5-5.1) mEq/L Chloride (98-107) mEq/L Carbon Dioxide (21-32) mEq/L Anion Gap (5-15) BUN (7-18) mg/dL Creatinine (0.55-1.02) mg/dL Est Cr Clr Drug Dosing mL/min Estimated GFR (MDRD) (>60) mL/min BUN/Creatinine Ratio (14-18) Glucose (83-115) mg/dL POC Glucose 111 H 143 H (83-110) mg/dL Lactic Acid (0.4-2.0) mmol/L Calcium (8.5-10.1) mg/dL Magnesium (1.8-2.4) mg/dl C-Reactive Protein (<1.0) mg/dL 04/21/17 04/21/17 04/21/17 Range/Units 05:30 05:30 06:23 WBC (3.98-10.04) K/mm3 RBC (3.98-5.22) M/mm3 Hgb (11.2-15.7) gm/L Hct (34.1-44.9) % MCV (79.4-94.8) fl MCH (25.6-32.2) pg MCHC (32.2-35.5) g/dl RDW Std Deviation (36.4-46.3) fL Plt Count (182-369) K/mm3 MPV (9.4-12.3) fl Neut % (Auto) (34.0-71.1) % Lymph % (Auto) (19.3-51.7) % [place] % (Auto) (4.7-12.5) % Eos % (Auto) (0.7-5.8) Baso % (Auto) (0.1-1.2) % Neut # (Auto) (1.56-6.13) K/mm3 Lymph # (Auto) (1.18-3.74) K/mm3 [place] # (Auto) (0.24-0.36) K/mm3 Eos # (Auto) (0.04-0.36) K/mm3 Baso # (Auto) (0.01-0.08) K/mm3 Manual Slide Review Sodium 136 (136-145) mEq/L Potassium 5.2 H (3.5-5.1) mEq/L Chloride 105 (98-107) mEq/L Carbon Dioxide 26 (21-32) mEq/L Anion Gap 10.2 (5-15) BUN 46 H (7-18) mg/dL Creatinine 1.3 H (0.55-1.02) mg/dL Est Cr Clr Drug Dosing 33.65 mL/min Estimated GFR (MDRD) 40 (>60) mL/min BUN/Creatinine Ratio 35.4 H (14-18) Glucose 145 H (83-115) mg/dL POC Glucose 141 H (83-110) mg/dL Lactic Acid 2.0 (0.4-2.0) mmol/L Calcium 9.5 (8.5-10.1) mg/dL Magnesium 2.4 (1.8-2.4) mg/dl C-Reactive Protein 4.7 H* (<1.0) mg/dL Med Orders - Current: Current Medications Acetaminophen (Tylenol) 650 mg PO Q6H PRN PRN Reason: Pain/Fever Last Admin: 04/18/17 11:34 Dose: 650 mg Albuterol (Proventil Neb Soln) 2.5 mg NEB Q4HRRT PRN PRN Reason: Shortness of Breath Last Admin: 04/18/17 04:23 Dose: 2.5 mg Albuterol/Ipratropium (Duoneb 3.0-0.5 Mg/3 Ml) 3 ml NEB QIDRT [facility] Last Admin: 04/21/17 08:59 Dose: 3 ml Allopurinol (Zyloprim) 300 mg PO DAILY [facility] Last Admin: 04/21/17 08:24 Dose: 300 mg Amlodipine Besylate (Norvasc) 5 mg PO DAILY [facility] Last Admin: 04/21/17 08:23 Dose: 5 mg Aspirin (Aspirin) 81 mg PO DAILY [facility] Last Admin: 04/21/17 08:22 Dose: 81 mg Atenolol (Tenormin) 50 mg PO DAILY [facility] Last Admin: 04/21/17 08:24 Dose: 50 mg Calcium Carbonate/Glycine (Tums) 1,000 mg PO Q4H PRN PRN Reason: Indigestion Last Admin: 04/20/17 08:40 Dose: 1,000 mg Dextrose/Water (Dextrose 50% In Water) 50 ml IVPUSH ASDIRECTED PRN PRN Reason: Hypoglycemia Docusate Sodium (Colace) 100 mg PO BID [facility] Last Admin: 04/21/17 08:22 Dose: 100 mg Doxycycline Hyclate (Vibramycin) 100 mg PO Q12H [facility] Stop: 04/22/17 22:00 Last Admin: 04/20/17 22:00 Dose: 100 mg Guaifenesin/Phenylephrine HCl (Robitussin Dm) 10 ml PO Q6H PRN PRN Reason: Cough Last Admin: 04/21/17 04:15 Dose: 10 ml Hydralazine HCl (Apresoline) 20 mg IVPUSH Q4H PRN PRN Reason: Hypertension Last Admin: 04/20/17 03:56 Dose: 20 mg Insulin Aspart (Novolog) 0 unit SUBCUT QIDACANDBED [facility] PRN Reason: Protocol Last Admin: 04/21/17 06:29 Dose: Not Given Lorazepam (Ativan) 2 mg IVPUSH Q4H PRN PRN Reason: Seizures Magnesium Sulfate (Pharmacy To Dose - Magnesium Replacement) 1 dose .XX ASDIRECTED [facility] Metformin HCl (Glucophage) 500 mg PO WITHBREAKFAST [facility] Last Admin: 04/21/17 06:29 Dose: 500 mg Methylprednisolone Sodium Succinate (Solu-Medrol) 40 mg IVPUSH Q12H [facility] Last Admin: 04/21/17 04:13 Dose: 40 mg Metoclopramide HCl (Reglan) 5 mg IVPUSH Q6H PRN PRN Reason: Nausea Last Admin: 04/19/17 01:06 Dose: 5 mg Metoprolol Tartrate (Lopressor) 5 mg IVPUSH Q4H PRN PRN Reason: Tachycardia Miscellaneous Information (Remove Patch) 0 ea TRDERM Q72H [facility] Mometasone Furoate (Asmanex 220 Mcg) 1 puff INH BIDRT [facility] Last Admin: 04/21/17 05:23 Dose: 1 puff Nitroglycerin (Nitrostat) 0.4 mg SL ASDIRECTED PRN PRN Reason: Chest Pain Ondansetron HCl (Zofran) 4 mg IVPUSH Q4H PRN PRN Reason: Nausea Last Admin: 04/18/17 23:53 Dose: 4 mg Pantoprazole Sodium (Protonix) 40 mg PO BIDAC [facility] Last Admin: 04/21/17 06:29 Dose: 40 mg Potassium Chloride (Klor-Con 10) 10 meq PO DAILY [facility] Last Admin: 04/21/17 08:23 Dose: 10 meq Potassium Chloride (Pharmacy To Dose - Potassium Replacement) 1 dose .XX ASDIRECTED [facility] Scopolamine (Scopolamine) 1 each TRDERM Q72H PRN PRN Reason: Nausea Last Admin: 04/18/17 13:11 Dose: 1 each Sertraline HCl (Zoloft) 25 mg PO DAILY [facility] Last Admin: 04/21/17 08:38 Dose: 25 mg Sodium Chloride (Saline Flush) 10 ml FLUSH ASDIRECTED PRN PRN Reason: Keep Vein Open Last Admin: 04/17/17 20:14 Dose: 10 ml Temazepam (Restoril) 7.5 mg PO BEDTIME PRN PRN Reason: Insomnia Last Admin: 04/20/17 23:05 Dose: 7.5 mg Discontinued Medications Acetaminophen (Tylenol) 975 mg PO NOW ONE Stop: 04/17/17 20:11 Last Admin: 04/17/17 20:14 Dose: 975 mg Albuterol/Ipratropium (Duoneb 3.0-0.5 Mg/3 Ml) 3 ml NEB ONETIME ONE Stop: 04/17/17 18:50 Last Admin: 04/17/17 18:54 Dose: 3 ml Albuterol/Ipratropium (Duoneb 3.0-0.5 Mg/3 Ml) Confirm Administered Dose 3 ml .ROUTE .STK-MED ONE Stop: 04/17/17 18:58 Last Admin: 04/17/17 18:54 Dose: Not Given Albuterol/Ipratropium (Duoneb 3.0-0.5 Mg/3 Ml) 3 ml NEB QIDRT [facility] Bisacodyl (Dulcolax) 10 mg RECTAL ONETIME ONE Stop: 04/20/17 13:45 Last Admin: 04/20/17 14:04 Dose: 10 mg Doxycycline Hyclate (Vibramycin) Confirm Administered Dose 100 mg .ROUTE .STK- MED ONE Stop: 04/18/17 00:03 Last Admin: 04/18/17 03:06 Dose: Not Given Fentanyl (Sublimaze) Confirm Administered Dose 100 mcg .ROUTE .STK-MED ONE Stop: 04/20/17 14:50 Furosemide (Lasix) 20 mg IVPUSH ONETIME ONE Stop: 04/18/17 07:01 Last Admin: 04/18/17 06:38 Dose: 20 mg Hydralazine HCl (Apresoline) 20 mg IVPUSH Q6H PRN PRN Reason: Hypertension Levofloxacin/Dextrose 750 mg/ (Premix) 150 mls @ 100 mls/hr IV ONETIME ONE Stop: 04/17/17 21:34 Last Admin: 04/17/17 20:11 Dose: 100 mls/hr Doxycycline Hyclate 100 mg/ (Sodium Chloride) 100 mls @ 100 mls/hr IV Q12HR [facility] Last Admin: 04/18/17 11:26 Dose: Not Given Sodium Chloride (Sodium Chloride 0.45%) 1,000 mls @ 100 mls/hr IV ASDIRECTED [facility] Stop: 04/18/17 10:30 Last Admin: 04/18/17 00:19 Dose: 100 mls/hr Magnesium Sulfate 2 gm/ Premix 50 mls @ 25 mls/hr IV ONETIME ONE Stop: 04/19/17 02:51 Last Admin: 04/19/17 01:07 Dose: 25 mls/hr Lidocaine HCl (Xylocaine-Mpf 1%) Confirm Administered Dose 4 mls @ as directed .ROUTE .STK-MED ONE Stop: 04/20/17 14:51 Lactated Ringer's (Ringers, Lactated) Confirm Administered Dose 1,000 mls @ as directed .ROUTE .STK-MED ONE Stop: 04/20/17 14:51 Magnesium Hydroxide (Milk Of Magnesia) 30 ml PO ONETIME ONE Stop: 04/21/17 04:05 Last Admin: 04/21/17 04:12 Dose: 30 ml Magnesium Hydroxide (Milk Of Magnesia) Confirm Administered Dose 30 ml .ROUTE .STK-MED ONE Stop: 04/21/17 04:03 Last Admin: 04/21/17 04:12 Dose: Not Given Methylprednisolone Sodium Succinate (Solu-Medrol) 40 mg IVPUSH Q8H [facility] Last Admin: 04/19/17 17:11 Dose: 40 mg Metoclopramide HCl (Reglan) 5 mg IVPUSH Q6H [facility] Last Admin: 04/18/17 13:18 Dose: 5 mg Nitroglycerin (Nitroglycerin) 2.5 mg PO ONETIME ONE Stop: 04/20/17 08:26 Last Admin: 04/20/17 08:43 Dose: 2.5 mg Non-Formulary Medication (Omeprazole) 20 mg PO DAILY [facility] Pantoprazole Sodium (Protonix) 40 mg PO DAILY@0700 [facility] Last Admin: 04/20/17 07:10 Dose: 40 mg Potassium Chloride (Klor-Con M20) 40 meq PO ONETIME ONE Stop: 04/19/17 01:16 Last Admin: 04/19/17 01:19 Dose: 40 meq Potassium Chloride (Klor-Con M20) 20 meq PO ONETIME ONE Stop: 04/19/17 06:01 Last Admin: 04/19/17 06:01 Dose: 20 meq Propofol (Diprivan 20 Ml) Confirm Administered Dose 200 mg .ROUTE .STK-MED ONE Stop: 04/20/17 14:50 *Q Meaningful Use (DIS) - VTE *Q VTE Criteria *Q: - Stroke *Q Stroke Criteria *Q: - AMI *Q AMI Criteria *Q:
[2017-04-21] MEDS: Doxycycline 100 MG Cap PO SCH (11:34)
== END 2017-04-21 13:04 | disposition home or self-care (01) | DRG 190 ==
LOC: JD.ED 18:01 → JD.MS 21:51
PROVIDERS: ADMIT Internal Medicine Cardiovascular Disease; ATTEND Internal Medicine Cardiovascular Disease
PROC: 0DB68ZX Excision of Stomach, Via Natural or Artificial Opening Endoscopic, Diagnostic (ICD-10-PCS; principal; 2017-04-20)
DX: J18.9 Pneumonia, unspecified organism (principal); J44.0 Chronic obstructive pulmonary disease with (acute) lower respiratory infection; J44.9 Chronic obstructive pulmonary disease, unspecified; J15.7 Pneumonia due to Mycoplasma pneumoniae; I10 Essential (primary) hypertension; N17.9 Acute kidney failure, unspecified; J20.5 Acute bronchitis due to respiratory syncytial virus; J44.1 Chronic obstructive pulmonary disease with (acute) exacerbation; E78.00 Pure hypercholesterolemia, unspecified; K21.9 Gastro-esophageal reflux disease without esophagitis; R06.03 Acute respiratory distress; R09.02 Hypoxemia; E83.42 Hypomagnesemia; K21.0 Gastro-esophageal reflux disease with esophagitis; K44.9 Diaphragmatic hernia without obstruction or gangrene; E11.9 Type 2 diabetes mellitus without complications; I25.10 Atherosclerotic heart disease of native coronary artery without angina pectoris; I13.10 Hypertensive heart and chronic kidney disease without heart failure, with stage 1 through stage 4 chronic kidney disease, or unspecified chronic kidney disease; N18.9 Chronic kidney disease, unspecified; Z87.891 Personal history of nicotine dependence; Z95.5 Presence of coronary angioplasty implant and graft; E78.5 Hyperlipidemia, unspecified; K58.9 Irritable bowel syndrome, unspecified; M19.90 Unspecified osteoarthritis, unspecified site; M10.9 Gout, unspecified; E66.9 Obesity, unspecified; F32.9 Major depressive disorder, single episode, unspecified; F41.9 Anxiety disorder, unspecified; L30.9 Dermatitis, unspecified; Z68.29 Body mass index [BMI] 29.0-29.9, adult; Z88.0 Allergy status to penicillin; Z79.84 Long term (current) use of oral hypoglycemic drugs; Z79.82 Long term (current) use of aspirin; Z99.81 Dependence on supplemental oxygen; Z79.899 Other long term (current) drug therapy
CPT/HCPCS: 36415; 71045; 80053; 83605; 83735; 83880; 84484; 85025; 86140; 86738; 87040; 87804 ×2; 93005; 94640; 94761; 96365; 99285; A9270; J1956; J7050; 00731; 71046; 71046-26; 74018; 74018-26; 80048; 82962; 83036; 87486; 87581; 87633; 87798; 87899; 94664; 94760; 97110-GP; 97116-GP; 97162-GP; 97165-GO; 99284; J0360; J1815-GY; J2405; J2704; J2765; J2920; J3010; J3475; J7030; J7120

== ENCOUNTER 2017-06-02 06:59 | Day surgery (SDC) | payer MEDICARE, MEDICAID ==
--- NOTE | 2017-06-01 12:08 | PCM.PREANE ---
Preanesthetic Assessment - Anesthesia/Transfusion/Family Hx Anesthesia History: Prior Anesthesia Without Reaction Family History of Anesthesia Reaction: No Transfusion History: No Prior Transfusion(s) Intubation History: Unknown - Review of Systems General: No Symptoms (pneumonia 05/08/17-symptoms have since resolved), Fatigue Pulmonary: No Symptoms (quit smoking in 1999/COPD noted with O2 used at night and with activity) Cardiovascular: No Symptoms (HTN, CAD with 3 stents placed angioplasty, history of VT (Last used nitroglycerin over one year ago)), Dyspnea on Exertion, Lightheadedness (postural changes) Gastrointestinal: No Symptoms (GERD/Hiatal hernia/ IBS), Constipation, Diarrhea Neurological: No Symptoms Other: Reports: None (Chronic Kidney Disease state 2-3), Easy Bruising, Diabetes (am blood sugar= 105 @ 0731), Sinus Problem, Depression, Anxiety - Physical Assessment NPO Status Date: 06/01/17 NPO Status Time: 18:00 Pulse: 52 O2 Sat by Pulse Oximetry: 91 Respiratory Rate: 16 Blood Pressure: 139/65 Temperature: 36.2 C Height: 1.65 m Weight: 77 kg ASA Class: 3 Mental Status: Alert & Oriented x3 Airway Class: Mallampati = 2 Dentition: Reports: Dentures Thyro-Mental Finger Breadths: 3 Mouth Opening Finger Breadths: 3 ROM/Head Extension: Full Lungs: Clear to Auscultation, Normal Respiratory Effort Cardiovascular: Regular Rate, Regular Rhythm, No Murmurs - Lab Values: All lab values reviewed and noted and within acceptable ranges to proceed with scheduled colonoscopy/hemorrhoid banding. - Imaging/EKG Impressions: EKG:SR rate = 71, ventricular trigeminy Carotid US: no significant occlusion noted Echocardiogram: EF= 60-65% - Allergies Allergies/Adverse Reactions: Allergies Allergy/AdvReac Type Severity Reaction Status Date / Time Penicillins Allergy Swelling Verified 06/01/17 14:28 - Anesthesia Plan Pre-Op Medication Ordered: Beta Alfonso Beta Alfonso: Atenolol Med Last Dose Date: 06/02/17 Med Last Dose Time: 06:00 - Acknowledgements Anesthesia Type Planned: MAC Pt an Appropriate Candidate for the Planned Anesthesia: Yes Alternatives and Risks of Anesthesia Discussed w Pt/Guardian: Yes Pt/Guardian Understands and Agrees with Anesthesia Plan: Yes PreAnesthesia Questionnaire HEENT History: Reports: Impaired Vision Other HEENT History: wears eyeglasses Cardiovascular History: Reports: Angina, CAD, High Cholesterol, Hypertension Respiratory History: Reports: COPD, Pneumonia, Recurrent Other Respiratory History: Has oxygen at home at night - 2 L per NC. Gastrointestinal History: Reports: GERD, Irritable Bowel Syndrome Genitourinary History: Reports: Chronic Renal Insuffiency Other Genitourinary History: renal disease SHOP COORDINATOR History: Reports: Other OB/BYN History: hysterectomy Musculoskeletal History: Reports: Arthritis, Gout Other Musculoskeletal History: sciatica Psychiatric History: Reports: Anxiety, Depression Endocrine/Metabolic History: Reports: Diabetes, Type II, Obesity/BMI 30+ Dermatologic History: Reports: Eczema Other Dermatologic History: eczema - Infectious Disease History Infectious Disease History: Reports: Influenza - Past Surgical History HEENT Surgical History: Reports: Cataract Surgery Cardiovascular Surgical History: Reports: Coronary Artery Stent, Percutaneous Transluminal Angioplasty GI Surgical History: Reports: Colonoscopy, Hernia Repair/Other Musculoskeletal Surgical History: Reports: Carpal Tunnel - SUBSTANCE USE Smoking Status *Q: Former Smoker Tobacco Use Within Last Twelve Months: No Second Hand Smoke Exposure: No Recreational Drug Use History: No - HOME MEDS Home Medications: Home Meds Albuterol/Ipratropium [DuoNeb 3.0-0.5 MG/3 ML] 1 dose INH BID 03/12/14 [History] Allopurinol [Zyloprim] 300 mg PO DAILY 03/12/14 [History] Aspirin [Ruben Chewable Aspirin] 81 mg PO DAILY 03/12/14 [History] Lisinopril 20 mg PO DAILY 03/12/14 [History] Nitroglycerin [Nitrostat] 0.4 mg PO ASDIRECTED PRN 03/12/14 [History] amLODIPine [Norvasc] 5 mg PO DAILY 03/12/14 [History] atorvaSTATin [Lipitor] 40 mg PO BEDTIME 03/12/14 [History] Docusate Sodium [Colace] 100 mg PO BID 09/11/14 [History] Furosemide 40 mg PO DAILY 09/11/14 [History] Mometasone Furoate [Asmanex 220 MCG] 1 puff INH BID 09/11/14 [History] Potassium Chloride 10 meq PO DAILY 09/11/14 [History] metFORMIN [Glucophage] 500 mg PO DAILY 09/19/15 [History] Atenolol [Tenormin] 50 mg PO DAILY 04/17/17 [History] Sertraline [Zoloft] 25 mg PO DAILY 04/17/17 [History] Pantoprazole [ProTONIX] 40 mg PO BIDAC #60 tab.cr 04/21/17 [Rx] - CURRENT (IN HOUSE) MEDS Current Meds: Current Medications Lactated Ringer's (Ringers, Lactated) 1,000 mls @ 125 mls/hr IV ASDIRECTED [facility] Stop: 06/02/17 23:00 Lidocaine/Sodium Bicarbonate (Buffered Lidocaine 1% In Ns 8.4%) 0.25 ml IDERM ONETIME PRN PRN Reason: Prior to IV Start Stop: 06/02/17 18:00 Sodium Chloride (Saline Flush) 10 ml FLUSH ASDIRECTED PRN PRN Reason: Keep Vein Open Stop: 06/02/17 18:00
[~2017-06-02 06:59] MED LIST: Lactated Ringers 1,000 ML IV SCH; Lidocaine 1%/Sod Bicarbonate in NS 8.4% 1 ML Syringe IDERM PRN; Sodium Chloride 0.9% 1,000 ML IV SCH; Sodium Chloride 0.9% 10 ML Syringe FLUSH PRN
[2017-06-02] MEDS ORDERED: Lidocaine 1% 6 ML ONE (07:23)
[2017-06-02] MEDS ORDERED: fentaNYL 100 MCG/2 ML SDV ONE (07:24)
[2017-06-02] MEDS ORDERED: Propofol 200 MG/20 ML SDV ONE ×2 (07:24→09:05)
[2017-06-02] MEDS ORDERED: Lidocaine 1% 2 ML ONE ×2 (08:00)
[2017-06-02] MEDS ORDERED: ePHEDrine 50 MG/ML SDV ONE (08:34)
--- NOTE | 2017-06-02 08:59 | PCM.OPNOTE ---
- General Post-Op/Procedure Note Date of Surgery/Procedure: 06/02/17 Operative Procedure(s): colonoscopy to cecum with hemorrhoidal banding times 3 Pre Op Diagnosis: rectal bleeding Post-Op Diagnosis: Same Anesthesia Technique: MAC Primary Surgeon: Clay Moncada EBL in mLs: 0 Complications: None Condition: Good
[2017-06-02] MEDS ORDERED: HYDROmorphone 0.5 MG/0.5 ML Syringe IVPUSH PRN (09:00)
[2017-06-02] MEDS ORDERED: Lidocaine 1% 4 ML ONE (09:05)
--- NOTE | 2017-06-02 09:39 | PCM.SN ---
- Free Text/Narrative Note: Anesthesia Note: Start: 909 Stop: 917 At 0859, anesthesia reported by PACU nurse that patient is c/o rectal pain, rated 8/10. [address] Moncada, who requested to take patient back to endoscopy room to exam under anesthesia the hemorrhoidal bands that recently were placed. Patent taken back, monitors/alarms on, O2 placed via nasal cannula at 5 LPM. Gently IV sedation of propofol given, with spontaneous respirations noted throughout, and VSS. Dr. Moncada performed his exam, performed his procedure, and requested for patient to wake up and be evaluated. Patient upon awakening was Orientated times 3, and stated that pain was improved. Patient taken to recovery/Preop area, with VSS, and report given to Krystle JOHNSON. Thank you Vilma MAC
[2017-06-02 10:08] VITALS: BP 125/64
--- NOTE | 2017-06-03 07:53 | OR ---
DATE OF OPERATION: 06/02/2017 SURGEON: Clay Moncada MD ADDENDUM: In the post recovery preoperative and postoperative diagnosis, internal hemorrhoids, status post banding procedure is reposition of hemorrhoidal bands done under IV sedation. DESCRIPTION OF PROCEDURE: The patient was complaining of discomfort in the anal area after hemorrhoidal bands. She was taken immediately back to the endoscopy room, given anesthetic, and an anal speculum was inserted showing 2 high-riding bands. These were removed and replaced with a low-riding band. This controlled the pain. The patient tolerated the procedure and will be followed up in the clinic as before. MMODAL /[id number]
--- NOTE | 2017-06-03 07:53 | OR ---
DATE OF OPERATION: 06/02/2017 SURGEON: Clay Moncada MD PREOPERATIVE DIAGNOSIS: Rectal bleeding, hemorrhoids. POSTOPERATIVE DIAGNOSIS: Rectal bleeding, hemorrhoids. OPERATION PERFORMED: Colonoscopy to cecum with banding of internal hemorrhoids x3. FINDINGS: Internal hemorrhoids, source of bleeding; severe sigmoid and descending colon diverticulosis. There were no angiodysplasias, neoplasias, large tumor masses, or ulcerations. ANESTHESIA: Procedure done under IV sedation. DESCRIPTION OF PROCEDURE: The patient was taken to the endoscopy room, placed in a supine position, connected to monitoring equipment, given IV sedation, and placed in the left lateral position. Perianal area showed some external hemorrhoids. Rectal exam showed good sphincter tone. Video Olympus colonoscope was then introduced into the rectum and threaded up without problem to the cecum, where the appendicular orifice and ileocecal valve were noted. Prep was excellent. [place] cleansing score grade A. The scope was slowly withdrawn showing the cecum, ascending colon, transverse colon, descending colon, sigmoid colon, and rectum. Internal hemorrhoids were noted and an anoscope was then inserted and hemorrhoidal bands were done in 3 internal hemorrhoids in 3 quadrants. The patient tolerated the procedure, was sent to recovery room in a stable condition, and will be followed up in the clinic. ESTIMATED BLOOD LOSS: MMODAL /[id number]
== END 2017-06-02 10:05 | disposition home or self-care (01) ==
LOC: JD.SDS 06:59
PROVIDERS: ATTEND Surgery
DX: K64.8 Other hemorrhoids (principal); K64.4 Residual hemorrhoidal skin tags; I12.9 Hypertensive chronic kidney disease with stage 1 through stage 4 chronic kidney disease, or unspecified chronic kidney disease; E11.22 Type 2 diabetes mellitus with diabetic chronic kidney disease; N18.9 Chronic kidney disease, unspecified; J44.9 Chronic obstructive pulmonary disease, unspecified; E78.2 Mixed hyperlipidemia; K58.1 Irritable bowel syndrome with constipation; M10.9 Gout, unspecified; I25.10 Atherosclerotic heart disease of native coronary artery without angina pectoris; K21.9 Gastro-esophageal reflux disease without esophagitis; Z87.891 Personal history of nicotine dependence; Z79.82 Long term (current) use of aspirin; Z79.84 Long term (current) use of oral hypoglycemic drugs; Z79.899 Other long term (current) drug therapy; Z88.0 Allergy status to penicillin
CPT/HCPCS: 45378; 46221; 46999; 82962; J7040; 00811; J2001; J2704; J3010

== ENCOUNTER 2018-10-16 09:16 | Emergency (ER) | payer MEDICARE, MEDICAID ==
[2018-10-16] MEDS ORDERED: Ondansetron 4 MG/2 ML SDV IVPUSH ONE (09:24)
--- NOTE | 2018-10-16 09:26 | EDM.PDOC ---
ED HPI GENERAL MEDICAL PROBLEM - General Chief Complaint: Cardiovascular Problem Stated Complaint: [facility] Time Seen by Provider: 10/16/18 09:20 Source of Information: Reports: Patient, EMS History Limitations: Reports: No Limitations - History of Present Illness INITIAL COMMENTS - FREE TEXT/NARRATIVE: 78-year-old female presents to the ED for evaluation otherwise weakness and difficulty walking today. Patient states she's been chronically ill for the last couple of weeks. She's been doctoring at [facility] with Dr. Cheney. She had an appointment scheduled for this morning but was too weak to get there and some in the ambulance instead. Para medics identified her to have O2 sats less than 90% and started her on 3 L/m by nasal cannula. Her blood pressure was also low and she received I believe 200 mils of fluid bolus. She states she was up a good portion of the night vomiting bilious brash water material. He appears exhausted. She states she short of breath on minimal exertion such as walking from the bedroom to the bathroom. That is been very poor the last several weeks. She believes she may have lost up to 8 pounds of weight. She states the legs were very swollen but are getting better with increased dose of Lasix. She has fallen several times in the last few weeks. Has multiple bruises to her upper extremities and healing abrasion to her right knee. Denies ever hitting her head very hard. Patient is a type II diabetic controlled with metformin and diet. Paramedics report that she had multifocal PVCs en route to the hospital. I did repeat note sent over from [facility]. Patient's BNP last week was 1500 and due to increased dyspnea her Lasix was doubled to 40 mg a.m. and p.m. This dosage for about 5 days. She was scheduled for an appointment for recheck this morning. Onset: Gradual (Ration gradually getting worse over the last 2-3 weeks. Much worse overnight due to recurrent nausea vomiting and severe dizziness when she tried to stand up this morning.) Onset Date: 10/16/18 (Worse symptoms today but has not been feeling well for about 3 weeks.) Duration: Week(s):, Getting Worse Location: Reports: Generalized (Generalized weakness dizziness with standing decreased appetite.) Quality: Reports: Other Severity: Severe (Lightheaded and severe weakness.) Improves with: Reports: None Worsens with: Reports: Other Context: Denies: Activity, Exercise, Lifting, Sick Contact, Trauma, Other Associated Symptoms: Reports: Cough, Loss of Appetite, Malaise (Not bringing up any phlegm however.), Nausea/Vomiting, Shortness of Breath, Weakness, Other. 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 Just a recent doses of her Lasix recently. ) - Related Data Allergies Allergy/AdvReac Type Severity Reaction Status Date / Time Penicillins Allergy Swelling Verified 10/16/18 09:22 Home Meds: Home Meds Albuterol Sulfate [Proair Respiclick] 2 puff INH BID PRN 10/16/18 [History] Albuterol/Ipratropium [DuoNeb 3.0-0.5 MG/3 ML] 3 ml INH BID 10/16/18 [History] Allopurinol [Zyloprim] 300 mg PO DAILY 10/16/18 [History] Aspirin 81 mg PO DAILY 10/16/18 [History] Atenolol 25 mg PO DAILY 10/16/18 [History] Cholecalciferol (Vitamin D3) [Vitamin D3] 1,000 mg PO DAILY 10/16/18 [History] Dicyclomine [Bentyl] 20 mg PO QID 10/16/18 [History] Docusate Sodium 100 mg PO BID 10/16/18 [History] Furosemide 40 mg PO DAILY 10/16/18 [History] Lisinopril [Prinivil] 20 mg PO DAILY 10/16/18 [History] Mometasone Furoate [Asmanex 220 MCG] 1 puff INH BID 10/16/18 [History] Nitroglycerin 0.4 mg PO Q5M PRN MDD 3 doses 10/16/18 [History] Pantoprazole [ProTONIX] 40 mg PO BID 10/16/18 [History] Potassium Chloride 10 meq PO DAILY 10/16/18 [History] Rosuvastatin Calcium 40 mg PO DAILY 10/16/18 [History] Sertraline [Zoloft] 50 mg PO DAILY 10/16/18 [History] amLODIPine [Norvasc] 5 mg PO DAILY 10/16/18 [History] Past Medical History HEENT History: Reports: Impaired Vision Other HEENT History: wears eyeglasses Cardiovascular History: Reports: Angina, CAD, Heart Failure, High Cholesterol, Hypertension, Stents (This was done before the carotid endarterectomy she believes about 8 or 9 years ago. She doesn't know if she had a heart attack at that time.) Other Cardiovascular History: carotid artery stenosis--has had left-sided endarterectomy with no previous stroke. This was done about 4-5 years ago Respiratory History: Reports: COPD, Pneumonia, Recurrent Other Respiratory History: Has oxygen at home at night - 2 L per NC. 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 Musculoskeletal History: Reports: Arthritis, Gout Other Musculoskeletal History: sciatica Neurological History: Reports: None Psychiatric History: Reports: Anxiety, Depression Endocrine/Metabolic History: Reports: Diabetes, Type II, Obesity/BMI 30+ Hematologic History: Reports: None Immunologic History: Reports: None Oncologic (Cancer) History: Reports: None Dermatologic History: Reports: Eczema Other Dermatologic History: eczema - Infectious Disease History Infectious Disease History: Reports: Influenza - Past Surgical History HEENT Surgical History: Reports: Cataract Surgery Cardiovascular Surgical History: Reports: Coronary Artery Stent, Percutaneous Transluminal Angioplasty GI Surgical History: Reports: Colonoscopy, Hernia Repair/Other Musculoskeletal Surgical History: Reports: Carpal Tunnel Social & Family History - Family History Family Medical History: Noncontributory - Caffeine Use Caffeine Use: Reports: Coffee Other Caffeine Use: cup of coffee every morning - Living Situation & Occupation Living situation: Reports: , Alone Occupation: Retired ED ROS GENERAL - Review of Systems Review Of Systems: See Below Constitutional: Reports: Malaise, Weakness, Fatigue, Decreased Appetite, Weight Loss. Denies: Fever, Chills HEENT: Reports: Glasses Respiratory: Reports: Shortness of Breath, Wheezing, Cough. Denies: Pleuritic Chest Pain, Sputum, Hemoptysis (Nonproductive) Cardiovascular: Reports: Blood Pressure Problem, Dyspnea on Exertion (Mostly left leg. Improvement of edema in lower legs since increased dose of Lasix taken.), Edema, Lightheadedness, Orthopnea. Denies: Chest Pain, Claudication ( Been running low lately.), Palpitations ( Worse than normal the last 3 weeks.) Endocrine: Reports: Fatigue GI/Abdominal: Reports: Constipation, Decreased Appetite, Nausea, Vomiting. Denies: Abdominal Pain, Diarrhea, Difficulty Swallowing, Distension, Flatus, Hematemesis, Hematochezia, Melena, Mucous in Stool : Reports: Frequency, Incontinence Musculoskeletal: Reports: Shoulder Pain, Back Pain, Joint Pain (Easily upset times.). Denies: Neck Pain Neurological: Reports: Dizziness (Especially this morning when she stood up.), Difficulty Walking (Weakness particularly in her lower extremities which causes her to fall.), Weakness. Denies: Headache, Numbness, Pre-Existing Deficit, Seizure, Syncope, Tingling, Tremors, Trouble Speaking Psychiatric: Reports: No Symptoms Hematologic/Lymphatic: Reports: No Symptoms ED EXAM, GENERAL - Physical Exam Exam: See Below Exam Limited By: No Limitations General Appearance: WD/WN, Other (Vital signs show temperature 36.3 pulse is 65 and sinus respiratory was 16 BP is 118/66 with O2 sats of 85% on room air. 98% on 3 L at rest. ) Eye Exam: Bilateral Eye: Normal Inspection Throat/Mouth: Other (Tongue is dry and coated.) Head: Atraumatic, Normocephalic Neck: Normal Inspection, Supple, Non-Tender, Full Range of Motion, Other (No JVD.). No: Carotid Bruit, Lymphadenopathy (L), Lymphadenopathy (R) Respiratory/Chest: Chest Non-Tender, Respiratory Distress (Mild tachypnea at rest.), Decreased Breath Sounds (Creased air entry to both lung bases but worse on the left side with decreased air entry to the lower 50% of the lung. No significant dullness to percussion on percussion..), Wheezing ( SPECT pleural effusion on the left. Question pleural effusion on the right but not as severe. occasional bilateral expiratory wheezing. ). No: Lungs Clear, Normal Breath Sounds Cardiovascular: Regular Rate, Rhythm, No Gallop, No Murmur, No Rub. No: No Edema Peripheral Pulses: 1+: Posterior Tibial (L), Posterior Tibial (R), Dorsalis Pedis (L), Dorsalis Pedis (R) GI/Abdominal: Normal Bowel Sounds, Soft, Non-Tender, No Organomegaly, No Mass, Pelvis Stable, Other (Mildly obese. Evidence of previous total bowel hysterectomy and BSO.) Back Exam: Normal Inspection, Full Range of Motion. No: CVA Tenderness (L), CVA Tenderness (R) Extremities: Pedal Edema (2-3+ pitting edema left lower extremity. Trace edema right ankle.), Other (Evidence of a healing abrasion to the right knee over the patella. Bruising both upper extremities.) Neurological: Alert, Oriented, CN II-XII Intact, Normal Cognition. No: Normal Gait (Not tested), Disoriented, Slow to Respond, Unresponsive Psychiatric: Normal Affect, Normal Mood Skin Exam: Warm, Dry, Intact, Pallor (Slight pallor or grape just a collar.) EKG INTERPRETATION EKG Date: 10/16/18 Time: 09:30 Rhythm: Other Rate (Beats/Min): 58 (Frequent multifocal PVCs.) [place]: Normal P-Wave: Enlarged (Left atrial hypertrophy pattern with first-degree AV block.) QRS: Other (There is a incomplete right bundle branch block pattern. Q waves V1 near Q-wave in V2. Consider old anteroseptal myocardial infarction.) ST-T: Other (Diffuse T-wave changes with flattening in multiple leads.) QT: Normal EKG Interpretation Comments: Abnormal ECG Course - Vital Signs Last Recorded V/S: Last Vital Signs Temp 36.3 C 10/16/18 09:19 Pulse 61 10/16/18 11:39 Resp 16 10/16/18 11:39 BP 113/52 L 10/16/18 11:39 Pulse Ox 91 L 10/16/18 11:39 - Orders/Labs/Meds Orders: Active Orders 24 hr Category Date Time Status EKG Documentation Completion [RC] STAT Care 10/16/18 09:21 Active Orthostatic Vital Signs [RC] ASDIRECTED Care 10/16/18 09:24 Active Oxygen Therapy [RC] ASDIRECTED Care 10/16/18 09:22 Active RT Aerosol Therapy [RC] ASDIRECTED Care 10/16/18 09:33 Active CALCIUM, IONIZED, SERUM [REF] Stat Lab 10/16/18 11:23 Ordered CULTURE BLOOD [BC] Stat Lab 10/16/18 09:40 Received CULTURE BLOOD [BC] Stat Lab 10/16/18 09:50 Received Heparin Sodium/D5W [Heparin 25,000 Units in D5W 500 ML] Med 10/16/18 12:00 Active 25,000 units in 500 ml IV ASDIRECTED Magnesium Sulfate/Water [Magnesium Sulfate in Water Med 10/16/18 11:17 Active Premix] 2 gm Premix Bag 1 bag IV ONETIME Norepinephrine [Levophed] 4 mg Med 10/16/18 11:17 Active Dextrose 5% in Water 246 ml IV TITRATE Blood Culture x2 Reflex Set [OM.PC] Stat Oth 10/16/18 09:22 Ordered Medication Orders Norepinephrine Bitartrate 4 mg (/ Dextrose/Water) 250 mls @ 7.5 mls/hr IV TITRATE LUCI; Protocol Last Titration: 10/16/18 12:07 Dose: 1 mcg/min, 3.75 mls/hr Admin: 10/16/18 11:17 Dose: 2 mcg/min, 7.5 mls/hr Magnesium Sulfate 2 gm/ Premix 50 mls @ 25 mls/hr IV ONETIME ONE Stop: 10/16/18 13:16 Last Admin: 10/16/18 11:25 Dose: 25 mls/hr Heparin Sodium/Dextrose (Heparin 25,000 Units In D5w 500 Ml) 25,000 units in 500 mls @ 20 mls/hr IV ASDIRECTED LUCI Last Admin: 10/16/18 12:05 Dose: 1,000 units/hr, 20 mls/hr Labs: Laboratory Tests 10/16/18 10/16/18 10/16/18 Range/Units 09:40 09:40 09:40 WBC 9.28 (3.98-10.04) K/mm3 RBC 4.39 (3.98-5.22) M/mm3 Hgb 12.5 (11.2-15.7) gm/L Hct 40.0 (34.1-44.9) % MCV 91.1 (79.4-94.8) fl MCH 28.5 (25.6-32.2) pg MCHC 31.3 L (32.2-35.5) g/dl RDW Std Deviation 55.6 H (36.4-46.3) fL Plt Count 199 (182-369) K/mm3 MPV 11.8 (9.4-12.3) fl Neut % (Auto) 56.5 (34.0-71.1) % Lymph % (Auto) 31.1 (19.3-51.7) % [place] % (Auto) 10.8 (4.7-12.5) % Eos % (Auto) 1.0 (0.7-5.8) Baso % (Auto) 0.3 (0.1-1.2) % Neut # (Auto) 5.24 (1.56-6.13) K/mm3 Lymph # (Auto) 2.89 (1.18-3.74) K/mm3 [place] # (Auto) 1.00 H (0.24-0.36) K/mm3 Eos # (Auto) 0.09 (0.04-0.36) K/mm3 Baso # (Auto) 0.03 (0.01-0.08) K/mm3 ESR (0-20) mm/hr PT 10.4 (9.7-12.0) SECONDS INR 0.95 APTT 25 (22-31) SECONDS D-Dimer, Quantitative (0.19-0.50) mg/L Puncture Site ABG pH (7.35-7.45) ABG pCO2 (35.0-45.0) mmHg ABG pO2 (80.0-100.0) mmHg ABG HCO3 (22.0-26.0) meq/L ABG O2 Saturation (96.0-97.0) % ABG Base Excess (-2-2.0) Johnson Test A-a Gradient mmHg O2 Delivery Device Oxygen Flow Rate FiO2 (21.00-100.00) % Sodium 141 (136-145) mEq/L Potassium 4.3 (3.5-5.1) mEq/L Chloride 102 (98-107) mEq/L Carbon Dioxide 30 (21-32) mEq/L Anion Gap 13.3 (5-15) BUN 45 H (7-18) mg/dL Creatinine 2.1 H (0.55-1.02) mg/dL Est Cr Clr Drug Dosing 20.19 mL/min Estimated GFR (MDRD) 23 (>60) mL/min BUN/Creatinine Ratio 21.4 H (14-18) Glucose 168 H (83-115) mg/dL Hemoglobin A1c (4.50-6.20) % Lactic Acid (0.4-2.0) mmol/L Calcium 11.3 H D (8.5-10.1) mg/dL Magnesium 1.6 L (1.8-2.4) mg/dl Total Bilirubin 0.5 (0.2-1.0) mg/dL AST 19 (15-37) U/L ALT 16 (14-59) U/L Alkaline Phosphatase 55 (46-116) U/L CK-MB (CK-2) 1.3 (0-3.6) ng/ml Troponin I 0.528 H* (0.00-0.056) ng/mL C-Reactive Protein 2.1 H* (<1.0) mg/dL NT-Pro-B Natriuret Pep (0-450) pg/mL Total Protein 6.4 (6.4-8.2) g/dl Albumin 2.5 L (3.4-5.0) g/dl Globulin 3.9 gm/dL Albumin/Globulin Ratio 0.6 L (1-2) 10/16/18 10/16/18 10/16/18 Range/Units 09:40 09:40 09:40 WBC (3.98-10.04) K/mm3 RBC (3.98-5.22) M/mm3 Hgb (11.2-15.7) gm/L Hct (34.1-44.9) % MCV (79.4-94.8) fl MCH (25.6-32.2) pg MCHC (32.2-35.5) g/dl RDW Std Deviation (36.4-46.3) fL Plt Count (182-369) K/mm3 MPV (9.4-12.3) fl Neut % (Auto) (34.0-71.1) % Lymph % (Auto) (19.3-51.7) % [place] % (Auto) (4.7-12.5) % Eos % (Auto) (0.7-5.8) Baso % (Auto) (0.1-1.2) % Neut # (Auto) (1.56-6.13) K/mm3 Lymph # (Auto) (1.18-3.74) K/mm3 [place] # (Auto) (0.24-0.36) K/mm3 Eos # (Auto) (0.04-0.36) K/mm3 Baso # (Auto) (0.01-0.08) K/mm3 ESR 63 H (0-20) mm/hr PT (9.7-12.0) SECONDS INR APTT (22-31) SECONDS D-Dimer, Quantitative (0.19-0.50) mg/L Puncture Site ABG pH (7.35-7.45) ABG pCO2 (35.0-45.0) mmHg ABG pO2 (80.0-100.0) mmHg ABG HCO3 (22.0-26.0) meq/L ABG O2 Saturation (96.0-97.0) % ABG Base Excess (-2-2.0) Johnson Test A-a Gradient mmHg O2 Delivery Device Oxygen Flow Rate FiO2 (21.00-100.00) % Sodium (136-145) mEq/L Potassium (3.5-5.1) mEq/L Chloride (98-107) mEq/L Carbon Dioxide (21-32) mEq/L Anion Gap (5-15) BUN (7-18) mg/dL Creatinine (0.55-1.02) mg/dL Est Cr Clr Drug Dosing mL/min Estimated GFR (MDRD) (>60) mL/min BUN/Creatinine Ratio (14-18) Glucose (83-115) mg/dL Hemoglobin A1c 6.90 H (4.50-6.20) % Lactic Acid (0.4-2.0) mmol/L Calcium (8.5-10.1) mg/dL Magnesium (1.8-2.4) mg/dl Total Bilirubin (0.2-1.0) mg/dL AST (15-37) U/L ALT (14-59) U/L Alkaline Phosphatase (46-116) U/L CK-MB (CK-2) (0-3.6) ng/ml Troponin I (0.00-0.056) ng/mL C-Reactive Protein (<1.0) mg/dL NT-Pro-B Natriuret Pep 6892 H (0-450) pg/mL Total Protein (6.4-8.2) g/dl Albumin (3.4-5.0) g/dl Globulin gm/dL Albumin/Globulin Ratio (1-2) 10/16/18 10/16/18 10/16/18 Range/Units 09:40 09:50 10:30 WBC (3.98-10.04) K/mm3 RBC (3.98-5.22) M/mm3 Hgb (11.2-15.7) gm/L Hct (34.1-44.9) % MCV (79.4-94.8) fl MCH (25.6-32.2) pg MCHC (32.2-35.5) g/dl RDW Std Deviation (36.4-46.3) fL Plt Count (182-369) K/mm3 MPV (9.4-12.3) fl Neut % (Auto) (34.0-71.1) % Lymph % (Auto) (19.3-51.7) % [place] % (Auto) (4.7-12.5) % Eos % (Auto) (0.7-5.8) Baso % (Auto) (0.1-1.2) % Neut # (Auto) (1.56-6.13) K/mm3 Lymph # (Auto) (1.18-3.74) K/mm3 [place] # (Auto) (0.24-0.36) K/mm3 Eos # (Auto) (0.04-0.36) K/mm3 Baso # (Auto) (0.01-0.08) K/mm3 ESR (0-20) mm/hr PT (9.7-12.0) SECONDS INR APTT (22-31) SECONDS D-Dimer, Quantitative 8.52 H (0.19-0.50) mg/L Puncture Site Lt radial ABG pH 7.41 (7.35-7.45) ABG pCO2 44.6 (35.0-45.0) mmHg ABG pO2 58.0 L (80.0-100.0) mmHg ABG HCO3 27.6 H (22.0-26.0) meq/L ABG O2 Saturation 89.2 L (96.0-97.0) % ABG Base Excess 3.0 H (-2-2.0) Johnson Test Positive A-a Gradient 115 mmHg O2 Delivery Device Nasal cannula Oxygen Flow Rate 3.0 FiO2 32.00 (21.00-100.00) % Sodium (136-145) mEq/L Potassium (3.5-5.1) mEq/L Chloride (98-107) mEq/L Carbon Dioxide (21-32) mEq/L Anion Gap (5-15) BUN (7-18) mg/dL Creatinine (0.55-1.02) mg/dL Est Cr Clr Drug Dosing mL/min Estimated GFR (MDRD) (>60) mL/min BUN/Creatinine Ratio (14-18) Glucose (83-115) mg/dL Hemoglobin A1c (4.50-6.20) % Lactic Acid 1.6 (0.4-2.0) mmol/L Calcium (8.5-10.1) mg/dL Magnesium (1.8-2.4) mg/dl Total Bilirubin (0.2-1.0) mg/dL AST (15-37) U/L ALT (14-59) U/L Alkaline Phosphatase (46-116) U/L CK-MB (CK-2) (0-3.6) ng/ml Troponin I (0.00-0.056) ng/mL C-Reactive Protein (<1.0) mg/dL NT-Pro-B Natriuret Pep (0-450) pg/mL Total Protein (6.4-8.2) g/dl Albumin (3.4-5.0) g/dl Globulin gm/dL Albumin/Globulin Ratio (1-2) Meds: Medications Generic Name Dose Route Start Last Admin Trade Name Freq PRN Reason Stop Dose Admin Norepinephrine Bitartrate 4 mg 250 mls @ 7.5 mls/hr 10/16/18 11:17 10/16/18 12:07 / Dextrose/Water IV 1 mcg/min TITRATE LCUI 3.75 mls/hr Titration Protocol 2 MCG/MIN Magnesium Sulfate 2 gm/ Premix 50 mls @ 25 mls/hr 10/16/18 11:17 10/16/18 11: 25 IV 10/16/18 13:16 25 mls/hr ONETIME ONE Administration Heparin Sodium/Dextrose 25,000 units in 500 mls @ 20 mls/hr 10/16/18 12:00 12:05 Heparin 25,000 Units In D5w 500 Ml IV 1,000 units/hr ASDIRECTED LUCI 20 mls/hr Administration 1,000 UNITS/HR Discontinued Medications Generic Name Dose Route Start Last Admin Trade Name Roberto PRN Reason Stop Dose Admin Albuterol/Ipratropium 3 ml 10/16/18 09:33 10/16/18 09:51 Duoneb 3.0-0.5 Mg/3 Ml NEB 10/16/18 09:34 3 ml ONETIME ONE Administration Furosemide 60 mg 10/16/18 10:46 10/16/18 11:03 Lasix IVPUSH 10/16/18 10:47 60 mg NOW ONE Administration Heparin Sodium (Porcine) 4,000 units 10/16/18 11:47 10/16/18 12:06 Heparin Sodium IVPUSH 10/16/18 11:48 4,000 units .BOLUS ONE Administration Sodium Chloride 1,000 mls @ 125 mls/hr 10/16/18 09:30 10/16/18 09:32 Normal Saline IV 125 mls/hr ASDIRECTED LUCI Administration Norepinephrine Bitartrate 4 mg 250 mls @ 15 mls/hr 10/16/18 11:00 / Dextrose/Water IV TITRATE LUCI Protocol 4 MCG/MIN Norepinephrine Bitartrate 2 mg 250 mls @ 30 mls/hr 10/16/18 11:10 / Dextrose/Water IV TITRATE LUCI Protocol 4 MCG/MIN Ondansetron HCl 4 mg 10/16/18 09:24 10/16/18 09:32 Zofran IVPUSH 10/16/18 09:25 4 mg ONETIME ONE Administration - Radiology Interpretation Free Text/Narrative:: 78-year-old female brought to the ED per mL is from her own home. She had no scheduled by with just see Dr. Cheney this morning but she was too weak and dizzy to get to the appointment. She's not been feeling well for about 3 weeks and pelvis gradually deteriorated. She reports decreased appetite. She reports vomiting of bilious material multiple occasions during the night. We can very dizzy this morning unable to stand erect without feeling faint. She has a history of COPD and likely coronary disease and heart failure. Has had previous left carotid endarterectomy without previous TIA stroke. ECG shows multiple PVCs. First-degree AV block with left it hypertrophy pattern. Possible old anteroseptal myocardial infarction. Exam reveals decreased air entry to both lung casper particularly on the left side with suspect pleural effusion. O2 sats 88% on room air. 98% on 3 L. BP is now improved to 116/66. It was 90 systolic when the paramedics picked her up and have given her 200 mils of fluid. Here she will be on IV D5 normal saline at 125 mils per hour. Will be given a DuoNeb as this is her regular medicine in the morning which she has not had. Orthostatic BPs to be done. - Re-Assessments/Exams Free Text/Narrative Re-Assessment/Exam: 10/16/18 09:54 ECG does show evidence of multifocal PVCs and an incomplete right bundle branch block pattern. Chest x-ray reveals mildly hyperinflated lung casper. Cardiac silhouette upper limits of normal. Prominent pulmonary arteries. Very minimal diffuse vascular congestion. No pleural effusions no pulmonary infiltrates. Aorta is mildly tortuous. Moderate sized hiatal hernia appreciated. Bony structures are grossly normal. 10/16/18 10:21 Hematology is back. Total white count is 9.28 with 56.5% neutrophils on the auto differential. Hemoglobin is 12.5 with hematocrit of 40.0. Platelet count is 199,000. Chemistry is pending 10/16/18 10:30 O2 sats of dropped to 87-88%. On 4 L per minute by nasal cannula. Before increase her oxygen at any point in time I will have ABGs done. 10/16/18 10:46PT is 10.4 with an INR of 0.95. PTT is 25. Hemoglobin A1c is 6.90. BNP is 6892. Chemistry is pending. Her IV will be changed to a saline lock. She will be given Lasix 60 mg IV. 10/16/18 11:16 Chemistry is now back sodium 141 with potassium 4.3. Chloride is 102 with a bicarbonate 30. Anion gap is 13.3. BUN is 45 with a creatinine of 2.1. GFR is down to 23 i.e. stage IV kidney disease. BUN/creatinine ratio is 21.4 mildly elevated. Glucose 168. Hemoglobin A1c is 6.90. Lactic acid is 1.6. Calcium is 11.3 markedly elevated. Magnesium is 1.6. Liver function is normal troponin I is elevated at 0.5-8. CK-MB fraction is 1.3. C-reactive protein is 2.1. BNP is 6892. Total protein 6.4 with albumin fraction low at 2.5. Plan ionized calcium will be ordered. Patient be given magnesium 2 g IV. Suspect recent myocardial infarction with an exacerbation of congestive heart failure and renal insufficiency. Her blood pressure will drop as low as 76 systolic. For going to start her on levo fed drip starting at 2 mcg/m. It will be titrated upwards every 10 minutes to achieve a blood pressure greater than 105 systolic. Awaiting results of blood gases. 10/16/18 11:46 d-dimer came back markedly elevated at 8.52. Appears that the patient is going to need to be heparinized. Her kidney function is too bad to pursue a CT angiogram. She requires cardiology consultation and management as to whether she suffered a recent myocardial infarction with decompensation of her left ventricle to cause her exacerbation of heart failure. Is been treated at [facility] in the past. 10/16/18: 12;[address] Jaime Zhou air conditioning installer supervisor office coordinator receptionist at [facility] in [place]. He has accepted care of this patient. Presumptive persistent hypotension and hypoxia likely due to pulmonary embolism. Kidney function is too poor to except contrast media at this time. Patient has required inotrope support with low-dose levo fed at 2 mcg/m to achieve a blood pressure of 113 systolic. O2 sats remained around 92% on 5 L/m by nasal cannula. Patient will be tentatively transferred to that institution per ground ambulance. 10/16/18 12:43 heart pressure slowly started to improve and went up as high as 125 systolic and therefore the levo fed drip was discontinued. A [place] catheter will be placed with urometer . Departure - Departure Time of Disposition: 12:48 Disposition: DC/Tfer to [facility] Reason for Transfer *Q: Other Condition: Serious Clinical Impression: Hypoxemia, Elevated d-dimer, Elevated troponin I level, Hypomagnesemia Congestive heart failure Qualifiers: Heart failure type: unspecified Heart failure chronicity: acute on chronic Qualified Code(s): I50.9 - Heart failure, unspecified Hypotension Qualifiers: Hypotension type: unspecified hypotension type Qualified Code(s): I95.9 - Hypotension, unspecified Referrals: PCP,Unknown [Family Provider] - Forms: ED Department Discharge - My Orders Last 24 Hours: My Active Orders 10/16/18 09:21 EKG Documentation Completion [RC] STAT 10/16/18 09:22 Oxygen Therapy [RC] ASDIRECTED Blood Culture x2 Reflex Set [OM.PC] Stat 10/16/18 09:24 Orthostatic Vital Signs [RC] ASDIRECTED 10/16/18 09:33 RT Aerosol Therapy [RC] ASDIRECTED 10/16/18 09:40 CULTURE BLOOD [BC] Stat 10/16/18 09:50 CULTURE BLOOD [BC] Stat 10/16/18 11:17 Magnesium Sulfate/Water [Magnesium Sulfate in Water Premix] 2 gm Premix Bag 1 bag IV ONETIME Norepinephrine [Levophed] 4 mg Dextrose 5% in Water 246 ml IV TITRATE 10/16/18 11:23 CALCIUM, IONIZED, SERUM [REF] Stat 10/16/18 12:00 Heparin Sodium/D5W [Heparin 25,000 Units in D5W 500 ML] 25,000 units in 500 ml IV ASDIRECTED - Assessment/Plan Last 24 Hours: My Active Orders 10/16/18 09:21 EKG Documentation Completion [RC] STAT 10/16/18 09:22 Oxygen Therapy [RC] ASDIRECTED Blood Culture x2 Reflex Set [OM.PC] Stat 10/16/18 09:24 Orthostatic Vital Signs [RC] ASDIRECTED 10/16/18 09:33 RT Aerosol Therapy [RC] ASDIRECTED 10/16/18 09:40 CULTURE BLOOD [BC] Stat 10/16/18 09:50 CULTURE BLOOD [BC] Stat 10/16/18 11:17 Magnesium Sulfate/Water [Magnesium Sulfate in Water Premix] 2 gm Premix Bag 1 bag IV ONETIME Norepinephrine [Levophed] 4 mg Dextrose 5% in Water 246 ml IV TITRATE 10/16/18 11:23 CALCIUM, IONIZED, SERUM [REF] Stat 10/16/18 12:00 Heparin Sodium/D5W [Heparin 25,000 Units in D5W 500 ML] 25,000 units in 500 ml IV ASDIRECTED
[2018-10-16] MEDS ORDERED: Sodium Chloride 0.9% 1,000 ML IV SCH (09:30)
[2018-10-16] MEDS ORDERED: Albuterol/Ipratropium 3.0-0.5 MG/3 ML Neb Soln NEB ONE (09:33)
--- NOTE | 2018-10-16 10:00 | CR ---
Chest: Portable view of the chest was obtained. Comparison: Prior chest x-ray of 04/19/17. Moderate sized hiatal hernia is noted. Heart size is normal. Tortuous thoracic aorta is seen. Lungs are clear with no acute parenchymal change. Bony structures are grossly intact. Impression: 1. Findings as noted above. Nothing acute is seen. Diagnostic code #2
[2018-10-16 10:35] LABS: HEMOGLOBIN A1C 6.9 % (4.50-6.20)
[2018-10-16] MEDS ORDERED: Furosemide 40 MG/4 ML VIAL IVPUSH ONE (10:46)
[2018-10-16] MEDS ORDERED: Norepinephrine 4 MG in Dextrose 5% in Water 246 ML IV SCH ×4 (11:00→11:17)
[2018-10-16] MEDS ORDERED: NOREPINEPHRINE IV SCH ×2 (11:10)
[2018-10-16] MEDS ORDERED: WATER IV SCH ×2 (11:10)
[2018-10-16] MEDS ORDERED: DEXTROSE 5% IV SCH ×2 (11:10)
[2018-10-16] MEDS ORDERED: Magnesium Sulfate/Water 2 GM in Premix Bag 1 BAG IV ONE (11:17)
[2018-10-16 11:40] VITALS: BP 113/52; PULSE 61
[2018-10-16] MEDS ORDERED: Heparin Sodium 5,000 Units/ML Vial IVPUSH ONE (11:47)
[2018-10-16] MEDS ORDERED: Heparin Sodium/D5W 25,000 UNITS/500 ML BAG IV SCH (12:00)
== END 2018-10-16 12:50 ==
LOC: JD.ED 09:16
DX: I95.9 Hypotension, unspecified (principal); I13.0 Hypertensive heart and chronic kidney disease with heart failure and stage 1 through stage 4 chronic kidney disease, or unspecified chronic kidney disease; E11.22 Type 2 diabetes mellitus with diabetic chronic kidney disease; N18.9 Chronic kidney disease, unspecified; I50.9 Heart failure, unspecified; R09.02 Hypoxemia; E83.42 Hypomagnesemia; R79.89 Other specified abnormal findings of blood chemistry; R79.1 Abnormal coagulation profile; E78.00 Pure hypercholesterolemia, unspecified; J44.9 Chronic obstructive pulmonary disease, unspecified; K21.9 Gastro-esophageal reflux disease without esophagitis; F41.9 Anxiety disorder, unspecified; F32.9 Major depressive disorder, single episode, unspecified; Z88.0 Allergy status to penicillin; Z79.899 Other long term (current) drug therapy; Z79.82 Long term (current) use of aspirin; Z79.84 Long term (current) use of oral hypoglycemic drugs
CPT/HCPCS: 36415; 36600; 71045; 80053; 82330; 82553; 82803; 83036; 83605; 83735; 83880; 84484; 85025; 85379; 85610; 85652; 85730; 86140; 87040; 93005; 94640; 96361; 96365; 96366; 96368; 96375; 99285; J1644; J1940; J2405; J3475; J7040; J7060; 93010; J7620-GY

== ENCOUNTER 2018-10-23 10:10 | Inpatient (IN) | payer MEDICARE, MEDICAID ==
--- NOTE | 2018-10-23 11:46 | EDM.PDOC ---
ED HPI GENERAL MEDICAL PROBLEM - General Chief Complaint: Fever Stated Complaint: FEVER Time Seen by Provider: 10/23/18 10:40 Source of Information: Reports: Patient, RN Notes Reviewed - History of Present Illness INITIAL COMMENTS - FREE TEXT/NARRATIVE: 78-year-old lady has been brought here private vehicle for evaluation of possible fever. Just released from [facility] 4 days ago after about a 3- 4 day admission for CHF and "blood clots in her left lower leg". She is on an oral blood thinner. Her home health nurse this morning detected a fever of 101. This was an Electronic forehead thermometer. She has had some mild chills, very occasional nonproductive cough but really feeling okay today. She has no chest or abdominal pain. She does not feel short of breath. NO Nausea vomiting or voiding symptomatology. - Related Data Allergies Allergy/AdvReac Type Severity Reaction Status Date / Time Penicillins Allergy Swelling Verified 10/23/18 10:22 Home Meds: Home Meds Albuterol Sulfate [Proair Respiclick] 2 puff INH BID PRN 10/16/18 [History] Albuterol/Ipratropium [DuoNeb 3.0-0.5 MG/3 ML] 3 ml INH BID 10/16/18 [History] Allopurinol [Zyloprim] 300 mg PO DAILY 10/16/18 [History] Aspirin 81 mg PO DAILY 10/16/18 [History] Cholecalciferol (Vitamin D3) [Vitamin D3] 1,000 mg PO DAILY 10/16/18 [History] Dicyclomine [Bentyl] 20 mg PO QID 10/16/18 [History] Docusate Sodium 100 mg PO BID 10/16/18 [History] Furosemide 40 mg PO DAILY 10/16/18 [History] Mometasone Furoate [Asmanex 220 MCG] 1 puff INH BID 10/16/18 [History] Nitroglycerin 0.4 mg PO Q5M PRN MDD 3 doses 10/16/18 [History] Pantoprazole [ProTONIX] 40 mg PO BID 10/16/18 [History] Potassium Chloride 10 meq PO DAILY 10/16/18 [History] Rosuvastatin Calcium 40 mg PO DAILY 10/16/18 [History] Sertraline [Zoloft] 50 mg PO DAILY 10/16/18 [History] Apixaban [Eliquis] 10 mg PO BID 10/23/18 [History] Past Medical History HEENT History: Reports: Impaired Vision Other HEENT History: wears eyeglasses Cardiovascular History: Reports: Angina, CAD, Heart Failure, High Cholesterol, Hypertension, Stents Other Cardiovascular History: carotid artery stenosis--has had left-sided endarterectomy with no previous stroke. This was done about 4-5 years ago Respiratory History: Reports: COPD, Pneumonia, Recurrent Other Respiratory History: Has oxygen at home at night - 2 L per [place]. Gastrointestinal History: Reports: GERD, Irritable Bowel Syndrome Genitourinary History: Reports: Chronic Renal Insuffiency Other Genitourinary History: renal disease [employer]ST History: Reports: Other [employer]ST History: hysterectomy Musculoskeletal History: Reports: Arthritis, Gout Other Musculoskeletal History: sciatica Neurological History: Reports: None Psychiatric History: Reports: Anxiety, Depression Endocrine/Metabolic History: Reports: Diabetes, Type II, Obesity/BMI 30+ Hematologic History: Reports: None Immunologic History: Reports: None Oncologic (Cancer) History: Reports: None Dermatologic History: Reports: Eczema Other Dermatologic History: eczema - Infectious Disease History Infectious Disease History: Reports: Influenza - Past Surgical History Head Surgeries/Procedures: Reports: None HEENT Surgical History: Reports: Cataract Surgery Cardiovascular Surgical History: Reports: Coronary Artery Stent, Percutaneous Transluminal Angioplasty GI Surgical History: Reports: Colonoscopy, Hernia Repair/Other Musculoskeletal Surgical History: Reports: Carpal Tunnel Social & Family History - Family History Family Medical History: Noncontributory - Tobacco Use Smoking Status *Q: Never Smoker - Caffeine Use Caffeine Use: Reports: Coffee Other Caffeine Use: cup of coffee every morning - Recreational Drug Use Recreational Drug Use: No - Living Situation & Occupation Living situation: Reports: , Alone Occupation: Retired ED ROS GENERAL - Review of Systems Review Of Systems: See Below Constitutional: Reports: Chills. Denies: Fever, Diaphoresis HEENT: Denies: Sinus Problem, Throat Pain Respiratory: Reports: Cough. Denies: Shortness of Breath, Wheezing GI/Abdominal: Denies: Abdominal Pain, Nausea, Vomiting Musculoskeletal: Denies: Shoulder Pain, Arm Pain, Leg Pain Skin: Reports: No Symptoms Neurological: Reports: No Symptoms ED EXAM, GENERAL - Physical Exam Exam: See Below General Appearance: Alert, No Apparent Distress Throat/Mouth: Normal Inspection, Normal Oropharynx Head: Atraumatic Neck: Supple Respiratory/Chest: No Respiratory Distress, Lungs Clear, Normal Breath Sounds Cardiovascular: Regular Rate, Rhythm GI/Abdominal: Soft, Non-Tender Back Exam: No: CVA Tenderness (L), CVA Tenderness (R) Extremities: Normal Inspection, Normal Range of Motion Neurological: Alert, Oriented, No Motor/Sensory Deficits Skin Exam: Warm, Dry, Normal Color EKG INTERPRETATION EKG Date: 10/23/18 Rhythm: NSR [place]: Normal P-Wave: Present QRS: Normal ST-T: Normal Course - Vital Signs Last Recorded V/S: Last Vital Signs Temp 96.1 F 10/24/18 09:06 Pulse 79 10/24/18 09:06 Resp 15 10/24/18 09:06 BP 131/58 L 10/24/18 09:06 Pulse Ox 92 L 10/24/18 09:06 - Orders/Labs/Meds Orders: Active Orders 24 hr Category Date Time Status CULTURE URINE [RM] Stat Lab 10/23/18 11:15 Results EKG 12 Lead [EK] Stat Ther 10/23/18 10:37 Ordered Medication Orders Acetaminophen (Tylenol) 650 mg PO Q4H PRN PRN Reason: Pain (Mild 1-3)/fever Hydrocodone Bitart/Acetaminophen ([place] 325-5 Mg) 1 tab PO Q4H PRN PRN Reason: Pain (moderate 4-6) Albuterol/Ipratropium (Duoneb 3.0-0.5 Mg/3 Ml) 3 ml NEB Q4H PRN PRN Reason: Shortness Of Breath/wheezing Albuterol/Ipratropium (Duoneb 3.0-0.5 Mg/3 Ml) 3 ml INH BIDRT [facility] Last Admin: 10/24/18 06:13 Dose: 3 ml Admin: 10/23/18 20:44 Dose: 3 ml Allopurinol (Zyloprim) 300 mg PO DAILY [facility] Aspirin (Halfprin) 81 mg PO DAILY [facility] Bisacodyl (Dulcolax) 5 mg PO DAILY PRN PRN Reason: Constipation Cholecalciferol (Vitamin D3) 25 mcg PO DAILY [facility] Dicyclomine HCl (Bentyl) 20 mg PO QID [facility] Docusate Sodium (Colace) 100 mg PO BID PRN PRN Reason: Constipation Docusate Sodium (Colace) 100 mg PO BID [facility] Last Admin: 10/23/18 22:03 Dose: 100 mg Furosemide (Lasix) 40 mg PO DAILY [facility] Hydromorphone HCl (Dilaudid) 0.25 mg IVPUSH Q2H PRN PRN Reason: Pain (severe 7-10) Promethazine HCl 6.25 mg/ (Sodium Chloride) 50.25 mls @ 100 mls/hr IV Q6H PRN PRN Reason: Nausea/Vomiting Ceftriaxone Sodium 1 gm/ (Sodium Chloride) 100 mls @ 200 mls/hr IV Q24H [facility] Last Admin: 10/24/18 09:57 Dose: 200 mls/hr Heparin Sodium/Dextrose (Heparin 25,000 Units In D5w 500 Ml) 25,000 units in 500 mls @ 19.16 mls/hr IV TITRATE [facility]; Protocol Last Titration: 10/24/18 07:52 Dose: 10 units/kg/hr, 15.966 mls/hr Admin: 10/23/18 23:29 Dose: 12 units/kg/hr, 19.16 mls/hr Magnesium Sulfate 4 gm/ Premix 50 mls @ 12.5 mls/hr IV ONETIME ONE Stop: 10/24/18 13:19 Nitroglycerin (Nitrostat) 0.4 mg SL Q5M PRN PRN Reason: Chest Pain Ondansetron HCl (Zofran) 4 mg IV Q6H PRN PRN Reason: Nausea/Vomiting Pantoprazole Sodium (Protonix) 40 mg PO BID [facility] Last Admin: 10/23/18 22:04 Dose: 40 mg Albuterol Sulfate [ Proair Respiclick] * *Pts Own Med 0 each INH BID PRN PRN Reason: Shortness of Breath Mometasone Furoate [ Asmanex 220 Mcg] Pt's Own Med 0 each INH BID [facility] Last Admin: 10/24/18 08:46 Dose: 1 each Admin: 10/23/18 20:44 Dose: 1 each Rosuvastatin Calcium 40 Mg Pt's Own Med 0 each PO DAILY [facility] Polyethylene Glycol (Miralax) 17 gm PO DAILY PRN PRN Reason: Constipation Potassium Chloride (Klor-Con M20) 10 meq PO DAILY [facility] Saccharomyces Boulardii (Florastor) 250 mg PO DAILY [facility] Senna/Docusate Sodium (Senna Plus) 1 tab PO BID PRN PRN Reason: Constipation Sertraline HCl (Zoloft) 50 mg PO DAILY [facility] Temazepam (Restoril) 7.5 mg PO BEDTIME PRN PRN Reason: Sleep Labs: Laboratory Tests 10/23/18 10/23/18 10/23/18 Range/Units 10:58 10:58 11:15 WBC 11.42 H (3.98-10.04) K/mm3 RBC 4.01 (3.98-5.22) M/mm3 Hgb 11.7 (11.2-15.7) gm/L Hct 36.9 (34.1-44.9) % MCV 92.0 (79.4-94.8) fl MCH 29.2 (25.6-32.2) pg MCHC 31.7 L (32.2-35.5) g/dl RDW Std Deviation 54.8 H (36.4-46.3) fL Plt Count 240 (182-369) K/mm3 MPV 11.1 (9.4-12.3) fl Neut % (Auto) 69.3 (34.0-71.1) % Lymph % (Auto) 17.2 L (19.3-51.7) % [place] % (Auto) 11.9 (4.7-12.5) % Eos % (Auto) 0.8 (0.7-5.8) Baso % (Auto) 0.4 (0.1-1.2) % Neut # (Auto) 7.92 H (1.56-6.13) K/mm3 Lymph # (Auto) 1.96 (1.18-3.74) K/mm3 [place] # (Auto) 1.36 H (0.24-0.36) K/mm3 Eos # (Auto) 0.09 (0.04-0.36) K/mm3 Baso # (Auto) 0.05 (0.01-0.08) K/mm3 Manual Slide Review Normal smear Sodium 138 (136-145) mEq/L Potassium 4.1 (3.5-5.1) mEq/L Chloride 100 (98-107) mEq/L Carbon Dioxide 30 (21-32) mEq/L Anion Gap 12.1 (5-15) BUN 36 H (7-18) mg/dL Creatinine 1.5 H (0.55-1.02) mg/dL Est Cr Clr Drug Dosing 28.26 mL/min Estimated GFR (MDRD) 34 (>60) mL/min BUN/Creatinine Ratio 24.0 H (14-18) Glucose 141 H (83-115) mg/dL Calcium 11.3 H (8.5-10.1) mg/dL Total Bilirubin 0.6 (0.2-1.0) mg/dL AST 39 H (15-37) U/L ALT 22 (14-59) U/L Alkaline Phosphatase 56 (46-116) U/L Troponin I 0.166 H* (0.00-0.056) ng/mL Total Protein 6.6 (6.4-8.2) g/dl Albumin 2.4 L (3.4-5.0) g/dl Globulin 4.2 gm/dL Albumin/Globulin Ratio 0.6 L (1-2) Urine Color Yellow (Yellow) Urine Appearance Clear (Clear) Urine pH 5.5 (5.0-8.0) Ur Specific [place] 1.010 (1.005-1.030) Urine Protein 1+ H (Negative) Urine Glucose (UA) Negative (Negative) Urine Ketones Negative (Negative) Urine Occult Blood 2+ H (Negative) Urine Nitrite Negative (Negative) Urine Bilirubin Negative (Negative) Urine Urobilinogen 0.2 (0.2-1.0) Ur Leukocyte Esterase 2+ H (Negative) Urine RBC 0-5 (0-5) /hpf Urine WBC 10-20 H (0-5) /hpf Urine WBC Clumps Few (NOT SEEN) /hpf Ur Squamous Epith Cells Not seen (0-5) /hpf Urine Bacteria Few (FEW) /hpf Urine Mucus Not seen (FEW) /hpf Meds: Medications Generic Name Dose Route Start Last Admin Trade Name Freq PRN Reason Stop Dose Admin Acetaminophen 650 mg 10/23/18 14:03 Tylenol PO Q4H PRN Pain (Mild 1-3)/fever Hydrocodone Bitart/Acetaminophen 1 tab 10/23/18 14:03 [place] 325-5 Mg PO Q4H PRN Pain (moderate 4-6) Albuterol/Ipratropium 3 ml 10/23/18 14:03 Duoneb 3.0-0.5 Mg/3 Ml NEB Q4H PRN Shortness Of Breath/wheezing Albuterol/Ipratropium 3 ml 10/23/18 21:00 10/24/18 06:13 Duoneb 3.0-0.5 Mg/3 Ml INH 3 ml BIDRT [facility] Administration Allopurinol 300 mg 10/24/18 09:00 Zyloprim PO DAILY [facility] Aspirin 81 mg 10/24/18 09:00 Halfprin PO DAILY [facility] Bisacodyl 5 mg 10/23/18 14:03 Dulcolax PO DAILY PRN Constipation Cholecalciferol 25 mcg 10/28/18 09:00 Vitamin D3 PO DAILY [facility] Dicyclomine HCl 20 mg 10/23/18 17:00 Bentyl PO QID [facility] Docusate Sodium 100 mg 10/23/18 14:03 Colace PO BID PRN Constipation Docusate Sodium 100 mg 10/23/18 21:00 10/23/18 22:03 Colace PO 100 mg BID [facility] Administration Furosemide 40 mg 10/25/18 09:00 Lasix PO DAILY [facility] Hydromorphone HCl 0.25 mg 10/23/18 14:03 Dilaudid IVPUSH Q2H PRN Pain (severe 7-10) Promethazine HCl 6.25 mg/ 50.25 mls @ 100 mls/hr 10/23/18 14:03 Sodium Chloride IV Q6H PRN Nausea/Vomiting Ceftriaxone Sodium 1 gm/ 100 mls @ 200 mls/hr 10/24/18 09:00 10/24/18 09:57 Sodium Chloride IV 200 mls/hr Q24H [facility] Administration Heparin Sodium/Dextrose 25,000 units in 500 mls @ 19.16 mls/hr 10/23/18 23:00 10/24/18 07:52 Heparin 25,000 Units In D5w 500 Ml IV 10 units/kg/hr TITRATE [facility] 15.966 mls/hr Titration Protocol 12 UNITS/KG/HR Magnesium Sulfate 4 gm/ Premix 50 mls @ 12.5 mls/hr 10/24/18 09:20 IV 10/24/18 13:19 ONETIME ONE Nitroglycerin 0.4 mg 10/23/18 14:09 Nitrostat SL Q5M PRN Chest Pain Ondansetron HCl 4 mg 10/23/18 14:03 Zofran IV Q6H PRN Nausea/Vomiting Pantoprazole Sodium 40 mg 10/23/18 21:00 10/23/18 22:04 Protonix PO 40 mg BID [facility] Administration Albuterol Sulfate [ 0 each 10/23/18 14:09 Proair Respiclick] * INH *Pts Own Med BID PRN Shortness of Breath Mometasone Furoate [ 0 each 10/23/18 21:00 10/24/18 08:46 Asmanex 220 Mcg] INH 1 each Pt's Own Med BID [facility] Administration Rosuvastatin Calcium 0 each 10/24/18 09:00 40 Mg Pt's Own PO Med DAILY [facility] Polyethylene Glycol 17 gm 10/23/18 14:03 Miralax PO DAILY PRN Constipation Potassium Chloride 10 meq 10/24/18 09:00 Klor-Con M20 PO DAILY [facility] Saccharomyces Boulardii 250 mg 10/24/18 09:00 Florastor PO DAILY [facility] Senna/Docusate Sodium 1 tab 10/23/18 14:03 Senna Plus PO BID PRN Constipation Sertraline HCl 50 mg 10/24/18 09:00 Zoloft PO DAILY [facility] Temazepam 7.5 mg 10/23/18 14:03 Restoril PO BEDTIME PRN Sleep Discontinued Medications Generic Name Dose Route Start Last Admin Trade Name Freq PRN Reason Stop Dose Admin Albuterol/Ipratropium 3 ml 10/24/18 09:00 Duoneb 3.0-0.5 Mg/3 Ml INH DAILY [facility] Apixaban 10 mg 10/23/18 21:00 10/23/18 22:04 Eliquis PO 10/24/18 22:00 10 mg BID [facility] Administration Apixaban 5 mg 10/25/18 09:00 Eliquis PO BID [facility] Apixaban 5 mg 10/25/18 21:54 Eliquis PO BID [facility] Cholecalciferol 25 mcg 10/24/18 09:00 Vitamin D3 PO DAILY [facility] Heparin Sodium (Porcine) 0 units 10/23/18 21:52 10/24/18 04:51 Heparin Sodium IVPUSH 10/23/18 21:53 Not Given .BOLUS ONE Protocol Ceftriaxone Sodium 1 gm/ 100 mls @ 200 mls/hr 10/23/18 12:47 10/23/18 13:13 Sodium Chloride IV 10/23/18 13:16 200 mls/hr ONETIME ONE Administration Non-Formulary Medication 40 mg 10/24/18 09:00 Furosemide [Furosemide] PO DAILY [facility] - Re-Assessments/Exams Free Text/Narrative Re-Assessment/Exam: 10/23/18 14:12 Afebrile on arrival to ED, however cath UA does show UTI. Hx as documented. Just discharge from [facility]. 4 days ago after admission for DVT, CHF. She is on oral anticoagulant. No chest pain or unusual dyspnea at this time. She is not a good candidate to go home at this time, Did order a urine culture, have given rocephin IV. Will admit for further eval and treatment. Departure - Departure Time of Disposition: 12:46 Disposition: Admitted As Inpatient 67 Condition: Fair Clinical Impression: UTI (urinary tract infection) Qualifiers: Urinary tract infection type: acute cystitis Hematuria presence: without hematuria Qualified Code(s): N30.00 - Acute cystitis without hematuria - Discharge Information - My Orders Last 24 Hours: My Active Orders 10/23/18 10:37 EKG 12 Lead [EK] Stat 10/23/18 11:15 CULTURE URINE [RM] Stat - Assessment/Plan Last 24 Hours: My Active Orders 10/23/18 10:37 EKG 12 Lead [EK] Stat 10/23/18 11:15 CULTURE URINE [RM] Stat
[2018-10-23] MEDS ORDERED: cefTRIAXone 1 GM in Sodium Chloride 0.9% 100 ML IV ONE (12:47)
--- NOTE | 2018-10-23 13:40 | PCM.HP.2 ---
<Martha Puente - Last Filed: 10/23/18 17:05> H&P History of Present Illness - General Date of Service: 10/23/18 Admit Problem/Dx: Admission Diagnosis/Problem Admission Diagnosis/Problem Urinary tract infection Source of Information: Patient History Limitations: Reports: No Limitations - History of Present Illness Initial Comments - Free Text/Narative: 78 year old female who was recently hospitalized tuesday - in [place] 4 days ago for CHF and blood clots in her left lower legs. During her hospital visit she did undergo catheterization and had a catheter for approximately 24 hours. Since her hospitalization, the patient has generally not been feeling well, but felt like she was getting better. However, her home health nurse noted a temperature of 101 this morning and suggested she go in to the ED. She does note that she has had some stomach pain and pain in her left leg, as well as decreased appetite and fatigue. She also reports some shortness of breath, a non productive cough in the morning, lower back pain and burning with urination. She normally has increased frequency due to furosemide and her diabetes, but she does report more urgency than normal. She denies cloudiness or hematuria. She also denies nausea, vomiting, diarrhea, constipation, hematochezia or melena, or chest pain. In the ED the patient had CBC, CMP Chest Xray, EKG and urine culture done. CBC demonstrated elevated white blood cell count of 11.42. CMP demonstrated creatine of 1.5, GFR of 34, hypercalcemia of 11.3 and elevated troponin levels of 0.166. UA demonstrates 1+ protein, 2+ leukocyte esterase, 10-20 WBC with few clumps and few urine bacteria. - Related Data Allergies/Adverse Reactions: Allergies Allergy/AdvReac Type Severity Reaction Status Date / Time Penicillins Allergy Swelling Verified 10/23/18 10:22 Home Medications: Home Meds Albuterol Sulfate [Proair Respiclick] 2 puff INH BID PRN 10/16/18 [History] Albuterol/Ipratropium [DuoNeb 3.0-0.5 MG/3 ML] 3 ml INH BID 10/16/18 [History] Allopurinol [Zyloprim] 300 mg PO DAILY 10/16/18 [History] Aspirin 81 mg PO DAILY 10/16/18 [History] Cholecalciferol (Vitamin D3) [Vitamin D3] 1,000 mg PO DAILY 10/16/18 [History] Dicyclomine [Bentyl] 20 mg PO QID 10/16/18 [History] Docusate Sodium 100 mg PO BID 10/16/18 [History] Furosemide 40 mg PO DAILY 10/16/18 [History] Mometasone Furoate [Asmanex 220 MCG] 1 puff INH BID 10/16/18 [History] Nitroglycerin 0.4 mg PO Q5M PRN MDD 3 doses 10/16/18 [History] Pantoprazole [ProTONIX] 40 mg PO BID 10/16/18 [History] Potassium Chloride 10 meq PO DAILY 10/16/18 [History] Rosuvastatin Calcium 40 mg PO DAILY 10/16/18 [History] Sertraline [Zoloft] 50 mg PO DAILY 10/16/18 [History] Apixaban [Eliquis] 10 mg PO BID 10/23/18 [History] Past Medical History HEENT History: Reports: Impaired Vision Other HEENT History: wears eyeglasses Cardiovascular History: Reports: Angina, CAD, Heart Failure, High Cholesterol, Hypertension, Stents Other Cardiovascular History: carotid artery stenosis--has had left-sided endarterectomy with no previous stroke. This was done about 4-5 years ago Respiratory History: Reports: COPD, Pneumonia, Recurrent Other Respiratory History: Has oxygen at home at night - 2 L per [place]. Gastrointestinal History: Reports: GERD, Irritable Bowel Syndrome Genitourinary History: Reports: Chronic Renal Insuffiency Other Genitourinary History: renal disease [employer] History: Reports: Other OB/BYN History: hysterectomy Musculoskeletal History: Reports: Arthritis, Gout Other Musculoskeletal History: sciatica Neurological History: Reports: None Psychiatric History: Reports: Anxiety, Depression Endocrine/Metabolic History: Reports: Diabetes, Type II, Obesity/BMI 30+ Hematologic History: Reports: None Immunologic History: Reports: None Oncologic (Cancer) History: Reports: None Dermatologic History: Reports: Eczema Other Dermatologic History: eczema - Infectious Disease History Infectious Disease History: Reports: Influenza - Past Surgical History Head Surgeries/Procedures: Reports: None HEENT Surgical History: Reports: Cataract Surgery Cardiovascular Surgical History: Reports: Coronary Artery Stent, Percutaneous Transluminal Angioplasty GI Surgical History: Reports: Colonoscopy, Hernia Repair/Other Musculoskeletal Surgical History: Reports: Carpal Tunnel Social & Family History - Family History Family Medical History: Noncontributory Oncologic: Reports: Bone, Lung - Tobacco Use Smoking Status *Q: Former Smoker Tobacco Use Within Last Twelve Months: No Years of Tobacco use: 50 Packs/Tins Daily: 1 Used Tobacco, but Quit: Yes Month/Year Tobacco Last Used: 2000 - Tobacco Core Measures Tobacco Use/Smoking Within Last 30 Days: No - Caffeine Use Caffeine Use: Reports: Coffee Other Caffeine Use: cup of coffee every morning - Alcohol Use Alcohol Use History: Yes Alcohol Use in Last Twelve Months: No - Recreational Drug Use Recreational Drug Use: No - Living Situation & Occupation Living situation: Reports: , Alone Occupation: Retired H&P Review of Systems - Review of Systems: Review Of Systems: See Below General: Reports: Fever, Fatigue. Denies: Chills, Decreased Appetite HEENT: Reports: Glasses. Denies: Ear Pain, Eye Pain, Headaches, Hearing Changes , Sore Throat, Visual Changes Pulmonary: Reports: Shortness of Breath, Cough. Denies: Wheezing, Sputum Cardiovascular: Reports: Edema. Denies: Chest Pain, Palpitations Gastrointestinal: Denies: Abdominal Pain, Constipation, Diarrhea, Nausea Genitourinary: Reports: Burning, Urgency, Flank Pain Musculoskeletal: Reports: Back Pain Skin: Reports: No Symptoms Psychiatric: Reports: No Symptoms Neurological: Denies: Dizziness, Headache, Numbness, Paresthesia Hematologic/Lymphatic: Reports: No Symptoms Immunologic: Reports: No Symptoms Exam - Exam Exam: See Below - Vital Signs Vital Signs: Last Vital Signs Temp 98.2 F 10/23/18 10:20 Pulse 80 10/23/18 10:20 Resp 18 10/23/18 10:20 BP 159/83 H 10/23/18 10:20 Pulse Ox 96 10/23/18 10:20 Weight: 79.832 kg - Exam Quality Assessment: Supplemental Oxygen General: Alert, Oriented HEENT: Conjunctiva Clear, EOMI, Hearing Intact, Mucosa Moist & Weiser, Nares Patent, Pupils Reactive Neck: Supple, Trachea Midline, 2 Lungs: Clear to Auscultation, Normal Respiratory Effort Cardiovascular: Regular Rate, Regular Rhythm GI/Abdominal Exam: Normal Bowel Sounds, Soft, Non-Tender, No Organomegaly, No Distention, No Abnormal Bruit Back Exam: Normal Inspection Extremities: Non-Tender, Pedal Edema (Of the left leg ), Slow Capillary Refill ( Bilaterally), Pallor, Other (Skin cool to the touch bilaterally) Peripheral Pulses: 1+: Posterior Tibial (L), Posterior Tibial (R), Dorsalis Pedis (L), Dorsalis Pedis (R), 2+: Radial (L), Radial (R) Skin: Dry, Intact Neurological: Cranial Nerves Intact Neuro Extensive - Mental Status: Alert, Oriented x3, Normal Mood/Affect, Normal Cognition, Memory Intact Psychiatric: Alert, Normal Affect, Normal Mood - Patient Data Lab Results Last 24 hrs: Laboratory Results - last 24 hr 10/23/18 10/23/18 10/23/18 Range/Units 10:58 10:58 11:15 WBC 11.42 H (3.98-10.04) K/mm3 RBC 4.01 (3.98-5.22) M/mm3 Hgb 11.7 (11.2-15.7) gm/L Hct 36.9 (34.1-44.9) % MCV 92.0 (79.4-94.8) fl MCH 29.2 (25.6-32.2) pg MCHC 31.7 L (32.2-35.5) g/dl RDW Std Deviation 54.8 H (36.4-46.3) fL Plt Count 240 (182-369) K/mm3 MPV 11.1 (9.4-12.3) fl Neut % (Auto) 69.3 (34.0-71.1) % Lymph % (Auto) 17.2 L (19.3-51.7) % [place] % (Auto) 11.9 (4.7-12.5) % Eos % (Auto) 0.8 (0.7-5.8) Baso % (Auto) 0.4 (0.1-1.2) % Neut # (Auto) 7.92 H (1.56-6.13) K/mm3 Lymph # (Auto) 1.96 (1.18-3.74) K/mm3 [place] # (Auto) 1.36 H (0.24-0.36) K/mm3 Eos # (Auto) 0.09 (0.04-0.36) K/mm3 Baso # (Auto) 0.05 (0.01-0.08) K/mm3 Manual Slide Review Normal smear Sodium 138 (136-145) mEq/L Potassium 4.1 (3.5-5.1) mEq/L Chloride 100 (98-107) mEq/L Carbon Dioxide 30 (21-32) mEq/L Anion Gap 12.1 (5-15) BUN 36 H (7-18) mg/dL Creatinine 1.5 H (0.55-1.02) mg/dL Est Cr Clr Drug Dosing 28.26 mL/min Estimated GFR (MDRD) 34 (>60) mL/min BUN/Creatinine Ratio 24.0 H (14-18) Glucose 141 H (83-115) mg/dL Calcium 11.3 H (8.5-10.1) mg/dL Total Bilirubin 0.6 (0.2-1.0) mg/dL AST 39 H (15-37) U/L ALT 22 (14-59) U/L Alkaline Phosphatase 56 (46-116) U/L Troponin I 0.166 H* (0.00-0.056) ng/mL Total Protein 6.6 (6.4-8.2) g/dl Albumin 2.4 L (3.4-5.0) g/dl Globulin 4.2 gm/dL Albumin/Globulin Ratio 0.6 L (1-2) Urine Color Yellow (Yellow) Urine Appearance Clear (Clear) Urine pH 5.5 (5.0-8.0) Ur Specific [place] 1.010 (1.005-1.030) Urine Protein 1+ H (Negative) Urine Glucose (UA) Negative (Negative) Urine Ketones Negative (Negative) Urine Occult Blood 2+ H (Negative) Urine Nitrite Negative (Negative) Urine Bilirubin Negative (Negative) Urine Urobilinogen 0.2 (0.2-1.0) Ur Leukocyte Esterase 2+ H (Negative) Urine RBC 0-5 (0-5) /hpf Urine WBC 10-20 H (0-5) /hpf Urine WBC Clumps Few (NOT SEEN) /hpf Ur Squamous Epith Cells Not seen (0-5) /hpf Urine Bacteria Few (FEW) /hpf Urine Mucus Not seen (FEW) /hpf Result Diagrams: 10/23/18 10:58 10/23/18 10:58 Problem List Initiated/Reviewed/Updated: Yes Orders Last 24hrs: Active Orders 24 hr Category Date Time Status Patient Status [ADT] Routine ADT 10/23/18 13:02 Active EKG Documentation Completion [RC] ASDIRECTED Care 10/23/18 10:37 Active Chest 1V Frontal [CR] Stat Exams 10/23/18 10:37 Taken CULTURE URINE [RM] Stat Lab 10/23/18 12:44 Ordered EKG 12 Lead [EK] Stat Ther 10/23/18 10:37 Ordered Assessment/Plan Comment:: Assessment: * Probable Catheter-Associated Urinary Tract Infection: recent history of catheter use * NSTEMI vs Troponin Leak: EKG shows no acute ST-T wave changes, CKMB is negative. * Leukocytosis: 11.42, chest xray shows no abnormal findings * Hypercalcemia with corrected calcium levels of 12.58 * History of DVT of left leg Plan: * Probable CAUTI * IV Rocephin and Probiotic * Pending UA * NSTEMI vs Troponin Leak * Serial troponin and CKMB * Lipid panel * Repeat EKG in the am * ASA * Statin * Heart Healthy diet * Leukocytosis * Monitor * Treat underlying cause * Hypercalcemia * Hold vitamin D supplement * Check vitamin D levels * History of DVT * Continue of Eliquis * Prognosis: Poor - Mortality Measure Prognosis:: Poor <Tico Merlos T - Last Filed: 10/23/18 21:07> H&P History of Present Illness - General Admit Problem/Dx: Admission Diagnosis/Problem Admission Diagnosis/Problem Urinary tract infection Exam - Vital Signs Vital Signs: Last Vital Signs Temp 36.6 C 10/23/18 16:50 Pulse 58 L 10/23/18 16:50 Resp 19 10/23/18 16:50 BP 122/86 10/23/18 16:50 Pulse Ox 96 10/23/18 20:45 - Exam Skin: Ecchymosis (on b/l arms) - Patient Data Lab Results Last 24 hrs: Laboratory Results - last 24 hr 10/23/18 10/23/18 10/23/18 Range/Units 10:58 10:58 11:15 WBC 11.42 H (3.98-10.04) K/mm3 RBC 4.01 (3.98-5.22) M/mm3 Hgb 11.7 (11.2-15.7) gm/L Hct 36.9 (34.1-44.9) % MCV 92.0 (79.4-94.8) fl MCH 29.2 (25.6-32.2) pg MCHC 31.7 L (32.2-35.5) g/dl RDW Std Deviation 54.8 H (36.4-46.3) fL Plt Count 240 (182-369) K/mm3 MPV 11.1 (9.4-12.3) fl Neut % (Auto) 69.3 (34.0-71.1) % Lymph % (Auto) 17.2 L (19.3-51.7) % [place] % (Auto) 11.9 (4.7-12.5) % Eos % (Auto) 0.8 (0.7-5.8) Baso % (Auto) 0.4 (0.1-1.2) % Neut # (Auto) 7.92 H (1.56-6.13) K/mm3 Lymph # (Auto) 1.96 (1.18-3.74) K/mm3 [place] # (Auto) 1.36 H (0.24-0.36) K/mm3 Eos # (Auto) 0.09 (0.04-0.36) K/mm3 Baso # (Auto) 0.05 (0.01-0.08) K/mm3 Manual Slide Review Normal smear Sodium 138 (136-145) mEq/L Potassium 4.1 (3.5-5.1) mEq/L Chloride 100 (98-107) mEq/L Carbon Dioxide 30 (21-32) mEq/L Anion Gap 12.1 (5-15) BUN 36 H (7-18) mg/dL Creatinine 1.5 H (0.55-1.02) mg/dL Est Cr Clr Drug Dosing 28.26 mL/min Estimated GFR (MDRD) 34 (>60) mL/min BUN/Creatinine Ratio 24.0 H (14-18) Glucose 141 H (83-115) mg/dL Calcium 11.3 H (8.5-10.1) mg/dL Total Bilirubin 0.6 (0.2-1.0) mg/dL AST 39 H (15-37) U/L ALT 22 (14-59) U/L Alkaline Phosphatase 56 (46-116) U/L CK-MB (CK-2) (0-3.6) ng/ml Troponin I 0.166 H* (0.00-0.056) ng/mL C-Reactive Protein (<1.0) mg/dL Total Protein 6.6 (6.4-8.2) g/dl Albumin 2.4 L (3.4-5.0) g/dl Globulin 4.2 gm/dL Albumin/Globulin Ratio 0.6 L (1-2) Vitamin D 25-Hydroxy (30.0-100.0) ng/ml Urine Color Yellow (Yellow) Urine Appearance Clear (Clear) Urine pH 5.5 (5.0-8.0) Ur Specific [place] 1.010 (1.005-1.030) Urine Protein 1+ H (Negative) Urine Glucose (UA) Negative (Negative) Urine Ketones Negative (Negative) Urine Occult Blood 2+ H (Negative) Urine Nitrite Negative (Negative) Urine Bilirubin Negative (Negative) Urine Urobilinogen 0.2 (0.2-1.0) Ur Leukocyte Esterase 2+ H (Negative) Urine RBC 0-5 (0-5) /hpf Urine WBC 10-20 H (0-5) /hpf Urine WBC Clumps Few (NOT SEEN) /hpf Ur Squamous Epith Cells Not seen (0-5) /hpf Urine Bacteria Few (FEW) /hpf Urine Mucus Not seen (FEW) /hpf 10/23/18 10/23/18 10/23/18 Range/Units 15:38 15:38 15:38 WBC (3.98-10.04) K/mm3 RBC (3.98-5.22) M/mm3 Hgb (11.2-15.7) gm/L Hct (34.1-44.9) % MCV (79.4-94.8) fl MCH (25.6-32.2) pg MCHC (32.2-35.5) g/dl RDW Std Deviation (36.4-46.3) fL Plt Count (182-369) K/mm3 MPV (9.4-12.3) fl Neut % (Auto) (34.0-71.1) % Lymph % (Auto) (19.3-51.7) % [place] % (Auto) (4.7-12.5) % Eos % (Auto) (0.7-5.8) Baso % (Auto) (0.1-1.2) % Neut # (Auto) (1.56-6.13) K/mm3 Lymph # (Auto) (1.18-3.74) K/mm3 [place] # (Auto) (0.24-0.36) K/mm3 Eos # (Auto) (0.04-0.36) K/mm3 Baso # (Auto) (0.01-0.08) K/mm3 Manual Slide Review Sodium (136-145) mEq/L Potassium (3.5-5.1) mEq/L Chloride (98-107) mEq/L Carbon Dioxide (21-32) mEq/L Anion Gap (5-15) BUN (7-18) mg/dL Creatinine (0.55-1.02) mg/dL Est Cr Clr Drug Dosing mL/min Estimated GFR (MDRD) (>60) mL/min BUN/Creatinine Ratio (14-18) Glucose (83-115) mg/dL Calcium (8.5-10.1) mg/dL Total Bilirubin (0.2-1.0) mg/dL AST (15-37) U/L ALT (14-59) U/L Alkaline Phosphatase (46-116) U/L CK-MB (CK-2) 3.5 3.9 H (0-3.6) ng/ml Troponin I 0.185 H* 0.164 H* (0.00-0.056) ng/mL C-Reactive Protein 6.2 H* (<1.0) mg/dL Total Protein (6.4-8.2) g/dl Albumin (3.4-5.0) g/dl Globulin gm/dL Albumin/Globulin Ratio (1-2) Vitamin D 25-Hydroxy 48 (30.0-100.0) ng/ml Urine Color (Yellow) Urine Appearance (Clear) Urine pH (5.0-8.0) Ur Specific [place] (1.005-1.030) Urine Protein (Negative) Urine Glucose (UA) (Negative) Urine Ketones (Negative) Urine Occult Blood (Negative) Urine Nitrite (Negative) Urine Bilirubin (Negative) Urine Urobilinogen (0.2-1.0) Ur Leukocyte Esterase (Negative) Urine RBC (0-5) /hpf Urine WBC (0-5) /hpf Urine WBC Clumps (NOT SEEN) /hpf Ur Squamous Epith Cells (0-5) /hpf Urine Bacteria (FEW) /hpf Urine Mucus (FEW) /hpf Result Diagrams: 10/23/18 10:58 10/23/18 10:58 Orders Last 24hrs: Active Orders 24 hr Category Date Time Status Patient Status [ADT] Routine ADT 10/23/18 13:02 Active Height and Weight [RC] 04 Care 10/23/18 14:03 Active Intake and Output [RC] 04,16 Care 10/23/18 14:03 Active Oxygen Therapy [RC] PRN Care 10/23/18 14:03 Active RT Aerosol Therapy [RC] ASDIRECTED Care 10/23/18 14:05 Active VTE/DVT Education [RC] BID Care 10/23/18 14:03 Active Vital Signs [RC] Q4HR Care 10/23/18 14:03 Active Consult to Case Management/Manufacturing Technology Analyst [CONS] Cons 10/23/18 14:03 Active Routine OT Evaluation and Treatment [CONS] Routine Cons 10/23/18 14:03 Active PT Evaluation and Treatment [CONS] Routine Cons 10/23/18 14:03 Active Heart Healthy Diet [DIET] Diet 10/23/18 Lunch Active Chest 1V Frontal [CR] Stat Exams 10/23/18 10:37 Taken BASIC METABOLIC PANEL,BMP [CHEM] AM Lab 10/24/18 05:11 Ordered BASIC METABOLIC PANEL,BMP [CHEM] AM Lab 10/25/18 05:11 Ordered BASIC METABOLIC PANEL,BMP [CHEM] AM Lab 10/26/18 05:11 Ordered BASIC METABOLIC PANEL,BMP [CHEM] AM Lab 10/27/18 05:11 Ordered BASIC METABOLIC PANEL,BMP [CHEM] AM Lab 10/28/18 05:11 Ordered C-REACTIVE PROTEIN [CHEM] AM Lab 10/24/18 05:11 Ordered C-REACTIVE PROTEIN [CHEM] AM Lab 10/25/18 05:11 Ordered C-REACTIVE PROTEIN [CHEM] AM Lab 10/26/18 05:11 Ordered C-REACTIVE PROTEIN [CHEM] AM Lab 10/27/18 05:11 Ordered C-REACTIVE PROTEIN [CHEM] AM Lab 10/28/18 05:11 Ordered CBC WITH AUTO DIFF [HEME] AM Lab 10/24/18 05:11 Ordered CBC WITH AUTO DIFF [HEME] AM Lab 10/25/18 05:11 Ordered CBC WITH AUTO DIFF [HEME] AM Lab 10/26/18 05:11 Ordered CBC WITH AUTO DIFF [HEME] AM Lab 10/27/18 05:11 Ordered CBC WITH AUTO DIFF [HEME] AM Lab 10/28/18 05:11 Ordered CKMB [CHEM] AM Lab 10/24/18 05:11 Ordered CULTURE URINE [RM] Stat Lab 10/23/18 11:15 Received MAGNESIUM [CHEM] AM Lab 10/24/18 05:11 Ordered TROPONIN I [CHEM] AM Lab 10/24/18 05:11 Ordered Acetaminophen [Tylenol] Med 10/23/18 14:03 Active 650 mg PO Q4H PRN Acetaminophen/HYDROcodone [[place] 325-5 MG] Med 10/23/18 14:03 Active 1 tab PO Q4H PRN Albuterol/Ipratropium [DuoNeb 3.0-0.5 MG/3 ML] Med 10/23/18 21:00 Active 3 ml INH BIDRT Albuterol/Ipratropium [DuoNeb 3.0-0.5 MG/3 ML] Med 10/23/18 14:03 Active 3 ml NEB Q4H PRN Allopurinol [Zyloprim] Med 10/24/18 09:00 Active 300 mg PO DAILY Apixaban [Eliquis] Med 10/23/18 21:00 Active 10 mg PO BID Aspirin [Halfprin] Med 10/24/18 09:00 Active 81 mg PO DAILY Bisacodyl [Dulcolax] Med 10/23/18 14:03 Active 5 mg PO DAILY PRN Cholecalciferol (Vitamin D3) [Vitamin D3] Med 10/28/18 09:00 Active 25 mcg PO DAILY Dicyclomine [Bentyl] Med 10/23/18 17:00 Pending 20 mg PO QID Docusate Sodium [Colace] Med 10/23/18 21:00 Active 100 mg PO BID Docusate Sodium [Colace] Med 10/23/18 14:03 Active 100 mg PO BID PRN Docusate Sodium/Sennosides [Senna Plus] Med 10/23/18 14:03 Active 1 tab PO BID PRN Furosemide [Lasix] Med 10/25/18 09:00 Active 40 mg PO DAILY HYDROmorphone [Dilaudid] Med 10/23/18 14:03 Active 0.25 mg IVPUSH Q2H PRN Nitroglycerin [Nitrostat] Med 10/23/18 14:09 Pending 0.4 mg SL Q5M PRN Ondansetron [Zofran] Med 10/23/18 14:03 Active 4 mg IV Q6H PRN Pantoprazole [ProTONIX] Med 10/23/18 21:00 Active 40 mg PO BID Patient's Own Medication [Ptom] Med 10/23/18 21:00 Active 0 each INH BID Patient's Own Medication [Ptom] Med 10/23/18 14:09 Pending 0 each INH BID PRN Patient's Own Medication [Ptom] Med 10/24/18 09:00 Pending 0 each PO DAILY Polyethylene Glycol 3350 [MiraLAX] Med 10/23/18 14:03 Active 17 gm PO DAILY PRN Potassium Chloride [Klor-Con M20] Med 10/24/18 09:00 Active 10 meq PO DAILY Promethazine [Phenergan] 6.25 mg Med 10/23/18 14:03 Active Sodium Chloride 0.9% [Normal Saline] 50 ml IV Q6H Saccharomyces Boulardii [Florastor] Med 10/24/18 09:00 Active 250 mg PO DAILY Sertraline [Zoloft] Med 10/24/18 09:00 Active 50 mg PO DAILY Temazepam [Restoril] Med 10/23/18 14:03 Active 7.5 mg PO BEDTIME PRN cefTRIAXone [Rocephin] 1 gm Med 10/24/18 09:00 Active Sodium Chloride 0.9% [Normal Saline] 100 ml IV Q24H Resuscitation Status Routine Resus Stat 10/23/18 14:03 Ordered EKG 12 Lead [EK] Stat Ther 10/23/18 10:37 Ordered Medication Orders Acetaminophen (Tylenol) 650 mg PO Q4H PRN PRN Reason: Pain (Mild 1-3)/fever Hydrocodone Bitart/Acetaminophen ([place] 325-5 Mg) 1 tab PO Q4H PRN PRN Reason: Pain (moderate 4-6) Albuterol/Ipratropium (Duoneb 3.0-0.5 Mg/3 Ml) 3 ml NEB Q4H PRN PRN Reason: Shortness Of Breath/wheezing Albuterol/Ipratropium (Duoneb 3.0-0.5 Mg/3 Ml) 3 ml INH BIDRT [facility] Last Admin: 10/23/18 20:44 Dose: 3 ml Allopurinol (Zyloprim) 300 mg PO DAILY [facility] Apixaban (Eliquis) 10 mg PO BID [facility] Stop: 10/24/18 22:00 Aspirin (Halfprin) 81 mg PO DAILY [facility] Bisacodyl (Dulcolax) 5 mg PO DAILY PRN PRN Reason: Constipation Cholecalciferol (Vitamin D3) 25 mcg PO DAILY [facility] Dicyclomine HCl (Bentyl) 20 mg PO QID [facility] Docusate Sodium (Colace) 100 mg PO BID PRN PRN Reason: Constipation Docusate Sodium (Colace) 100 mg PO BID [facility] Furosemide (Lasix) 40 mg PO DAILY [facility] Hydromorphone HCl (Dilaudid) 0.25 mg IVPUSH Q2H PRN PRN Reason: Pain (severe 7-10) Promethazine HCl 6.25 mg/ (Sodium Chloride) 50.25 mls @ 100 mls/hr IV Q6H PRN PRN Reason: Nausea/Vomiting Ceftriaxone Sodium 1 gm/ (Sodium Chloride) 100 mls @ 200 mls/hr IV Q24H [facility] Nitroglycerin (Nitrostat) 0.4 mg SL Q5M PRN PRN Reason: Chest Pain Ondansetron HCl (Zofran) 4 mg IV Q6H PRN PRN Reason: Nausea/Vomiting Pantoprazole Sodium (Protonix) 40 mg PO BID [facility] Albuterol Sulfate [ Proair Respiclick] * *Pts Own Med 0 each INH BID PRN PRN Reason: Shortness of Breath Mometasone Furoate [ Asmanex 220 Mcg] Pt's Own Med 0 each INH BID [facility] Last Admin: 10/23/18 20:44 Dose: 1 each Rosuvastatin Calcium 40 Mg Pt's Own Med 0 each PO DAILY [facility] Polyethylene Glycol (Miralax) 17 gm PO DAILY PRN PRN Reason: Constipation Potassium Chloride (Klor-Con M20) 10 meq PO DAILY [facility] Saccharomyces Boulardii (Florastor) 250 mg PO DAILY [facility] Senna/Docusate Sodium (Senna Plus) 1 tab PO BID PRN PRN Reason: Constipation Sertraline HCl (Zoloft) 50 mg PO DAILY [facility] Temazepam (Restoril) 7.5 mg PO BEDTIME PRN PRN Reason: Sleep Assessment/Plan Comment:: Patient was seen and examined at bedside in concert with the medical student. The admission assessments and plans were discussed and agreed upon with me. Additional Plan of care: Admit to OBS Resume [facility] Meds Routine AM Labs DVT/GI Prophylaxis PT/OT to assess and treat SW?CM for D/c planning Additional orders as above Code Status: CPR only Prognosis guarded
[2018-10-23] MEDS ORDERED: HYDROmorphone 0.5 MG/0.5 ML Syringe IVPUSH PRN (14:03)
[2018-10-23] MEDS ORDERED: Temazepam 7.5 MG Cap PO PRN (14:03)
[2018-10-23] MEDS ORDERED: Promethazine 6.25 MG in Sodium Chloride 0.9% 50 ML IV PRN (14:03)
[2018-10-23] MEDS ORDERED: Bisacodyl 5 MG Tab PO PRN (14:03)
[2018-10-23] MEDS ORDERED: Albuterol/Ipratropium 3.0-0.5 MG/3 ML Neb Soln NEB PRN (14:03)
[2018-10-23] MEDS ORDERED: Polyethylene Glycol 3350 Powder 17 GM Packet PO PRN (14:03)
[2018-10-23] MEDS ORDERED: Acetaminophen 325 MG Tab PO PRN (14:03)
[2018-10-23] MEDS ORDERED: Acetaminophen/HYDROcodone 325-5 MG Tab PO PRN (14:03)
[2018-10-23] MEDS ORDERED: Docusate Sodium 100 MG Cap PO PRN (14:03)
[2018-10-23] MEDS ORDERED: Ondansetron 4 MG/2 ML SDV IV PRN (14:03)
[2018-10-23] MEDS ORDERED: Albuterol 6.7 GM Inhaler INH PRN (14:09)
[2018-10-23] MEDS ORDERED: Nitroglycerin 0.4 MG Tab.SL SL PRN (14:09)
[2018-10-23] MEDS: ALBUTEROL INH SCH (20:44)
[2018-10-23] MEDS: MOMETASONE FUROATE INH SCH (20:44)
[2018-10-23] MEDS: IPRATROPIUM INH SCH (20:44)
[2018-10-23] MEDS ORDERED: APIXABAN 5 MG PO SCH (21:00)
[2018-10-23] MEDS ORDERED: Heparin Sodium 5,000 Units/ML Vial IVPUSH ONE (21:52)
[2018-10-23] MEDS ORDERED: Heparin Sodium/D5W 25,000 UNITS/500 ML BAG IV SCH ×2 (22:00→23:00)
[2018-10-23] MEDS: DOCUSATE SODIUM PO SCH (22:03)
[2018-10-23] MEDS: PANTOPRAZOLE PO SCH (22:04)
[2018-10-24] MEDS: ALBUTEROL INH SCH (06:13)
[2018-10-24] MEDS: IPRATROPIUM INH SCH (06:13)
[2018-10-24] MEDS: MOMETASONE FUROATE INH SCH ×2 (08:46→20:37)
[2018-10-24] MEDS ORDERED: Cholecalciferol (Vitamin D3) [Vitamin D3] PO SCH (09:00)
[2018-10-24] MEDS ORDERED: ALLOPURINOL 300 MG PO SCH (09:00)
[2018-10-24] MEDS ORDERED: DUONEB INH SCH (09:00)
[2018-10-24] MEDS ORDERED: POTASSIUM CHLORIDE 20 MEQ PO SCH (09:00)
[2018-10-24] MEDS ORDERED: SERTRALINE 50 MG PO SCH (09:00)
[2018-10-24] MEDS ORDERED: Non-Formulary Medication 1 Each (Furosemide [Furosemide] 40 MG) PO SCH (09:00)
[2018-10-24] MEDS ORDERED: Magnesium Sulfate/Water 4 GM in Premix Bag 1 BAG IV ONE (09:20)
--- NOTE | 2018-10-24 09:40 | CR ---
Chest: Portable view of the chest was obtained. Comparison: Prior chest x-ray of 10/16/18. Heart size is normal. Tortuous thoracic aorta is seen. Hiatal hernia is present. Lungs are clear with no acute parenchymal change. Bony structures are grossly intact. Impression: 1. Nothing acute is seen on portable chest x-ray. Diagnostic code #1
[2018-10-24] MEDS: cefTRIAXone 1 GM in Sodium Chloride 0.9% 100 ML IV SCH (09:57)
[2018-10-24] MEDS: Saccharomyces Boulardii (Probiotic) 250 MG Cap PO SCH (10:30)
[2018-10-24] MEDS: PANTOPRAZOLE PO SCH ×2 (10:31→21:52)
[2018-10-24] MEDS: DOCUSATE SODIUM PO SCH ×2 (10:31→21:52)
[2018-10-24] MEDS: ASPIRIN 81 MG PO SCH (10:32)
--- NOTE | 2018-10-24 12:02 | PCM.PN ---
<Martha Puente - Last Filed: 10/24/18 12:02> - General Info Date of Service: 10/24/18 Admission Dx/Problem (Free Text): Admission Diagnosis/Problem Admission Diagnosis/Problem Urinary tract infection Subjective Update: The patient is generally feeling better today. She has continued to have some frequency and urgency with urination but no dysuria. Patient does note that she has had some constipation and decreased appetite this morning. She denies chest pain or shortness of breath. She has been able to ambulate with assistance. Functional Status: Reports: Tolerating Diet, Ambulating, Urinating - Review of Systems General: Reports: No Symptoms HEENT: Reports: No Symptoms Pulmonary: Reports: No Symptoms Cardiovascular: Reports: No Symptoms Gastrointestinal: Reports: Constipation Genitourinary: Reports: Frequency, Urgency. Denies: Dysuria, Burning Musculoskeletal: Reports: No Symptoms Skin: Reports: No Symptoms Neurological: Reports: No Symptoms Psychiatric: Reports: No Symptoms - Patient Data Vitals - Most Recent: Last Vital Signs Temp 96.1 F 10/24/18 09:06 Pulse 79 10/24/18 09:06 Resp 15 10/24/18 09:06 BP 131/58 L 10/24/18 09:06 Pulse Ox 92 L 10/24/18 09:06 Weight - Most Recent: 80.104 kg I&O - Last 24 Hours: Intake & Output 10/23/18 10/24/18 10/24/18 22:59 06:59 14:59 Intake Total 575 878 180 Output Total 900 Balance 575 -22 180 Lab Results Last 24 Hours: Laboratory Results - last 24 hr 10/23/18 10/23/18 10/23/18 Range/Units 11:15 15:38 15:38 WBC (3.98-10.04) K/mm3 RBC (3.98-5.22) M/mm3 Hgb (11.2-15.7) gm/dl Hct (34.1-44.9) % MCV (79.4-94.8) fl MCH (25.6-32.2) pg MCHC (32.2-35.5) g/dl RDW Std Deviation (36.4-46.3) fL Plt Count (182-369) K/mm3 MPV (9.4-12.3) fl Neut % (Auto) (34.0-71.1) % Lymph % (Auto) (19.3-51.7) % [place] % (Auto) (4.7-12.5) % Eos % (Auto) (0.7-5.8) Baso % (Auto) (0.1-1.2) % Neut # (Auto) (1.56-6.13) K/mm3 Lymph # (Auto) (1.18-3.74) K/mm3 [place] # (Auto) (0.24-0.36) K/mm3 Eos # (Auto) (0.04-0.36) K/mm3 Baso # (Auto) (0.01-0.08) K/mm3 APTT (22-31) SECONDS Sodium (136-145) mEq/L Potassium (3.5-5.1) mEq/L Chloride (98-107) mEq/L Carbon Dioxide (21-32) mEq/L Anion Gap (5-15) BUN (7-18) mg/dL Creatinine (0.55-1.02) mg/dL Est Cr Clr Drug Dosing mL/min Estimated GFR (MDRD) (>60) mL/min BUN/Creatinine Ratio (14-18) Glucose (83-115) mg/dL Calcium (8.5-10.1) mg/dL Magnesium (1.8-2.4) mg/dl CK-MB (CK-2) 3.5 3.9 H (0-3.6) ng/ml Troponin I 0.185 H* 0.164 H* (0.00-0.056) ng/mL C-Reactive Protein 6.2 H* (<1.0) mg/dL Triglycerides (<150) mg/dL Cholesterol (<200) mg/dL LDL Cholesterol Direct (<100) mg/dL HDL Cholesterol (40-59) mg/dL Vitamin D 25-Hydroxy (30.0-100.0) ng/ml Urine RBC 0-5 (0-5) /hpf Urine WBC 10-20 H (0-5) /hpf Urine WBC Clumps Few (NOT SEEN) /hpf Ur Squamous Epith Cells Not seen (0-5) /hpf Urine Bacteria Few (FEW) /hpf Urine Mucus Not seen (FEW) /hpf 10/23/18 10/23/18 10/23/18 Range/Units 15:38 22:05 22:05 WBC (3.98-10.04) K/mm3 RBC (3.98-5.22) M/mm3 Hgb (11.2-15.7) gm/dl Hct (34.1-44.9) % MCV (79.4-94.8) fl MCH (25.6-32.2) pg MCHC (32.2-35.5) g/dl RDW Std Deviation (36.4-46.3) fL Plt Count 255 (182-369) K/mm3 MPV (9.4-12.3) fl Neut % (Auto) (34.0-71.1) % Lymph % (Auto) (19.3-51.7) % [place] % (Auto) (4.7-12.5) % Eos % (Auto) (0.7-5.8) Baso % (Auto) (0.1-1.2) % Neut # (Auto) (1.56-6.13) K/mm3 Lymph # (Auto) (1.18-3.74) K/mm3 [place] # (Auto) (0.24-0.36) K/mm3 Eos # (Auto) (0.04-0.36) K/mm3 Baso # (Auto) (0.01-0.08) K/mm3 APTT 32 H D (22-31) SECONDS Sodium (136-145) mEq/L Potassium (3.5-5.1) mEq/L Chloride (98-107) mEq/L Carbon Dioxide (21-32) mEq/L Anion Gap (5-15) BUN (7-18) mg/dL Creatinine (0.55-1.02) mg/dL Est Cr Clr Drug Dosing mL/min Estimated GFR (MDRD) (>60) mL/min BUN/Creatinine Ratio (14-18) Glucose (83-115) mg/dL Calcium (8.5-10.1) mg/dL Magnesium (1.8-2.4) mg/dl CK-MB (CK-2) (0-3.6) ng/ml Troponin I (0.00-0.056) ng/mL C-Reactive Protein (<1.0) mg/dL Triglycerides (<150) mg/dL Cholesterol (<200) mg/dL LDL Cholesterol Direct (<100) mg/dL HDL Cholesterol (40-59) mg/dL Vitamin D 25-Hydroxy 48 (30.0-100.0) ng/ml Urine RBC (0-5) /hpf Urine WBC (0-5) /hpf Urine WBC Clumps (NOT SEEN) /hpf Ur Squamous Epith Cells (0-5) /hpf Urine Bacteria (FEW) /hpf Urine Mucus (FEW) /hpf 10/24/18 10/24/18 10/24/18 Range/Units 06:26 06:26 06:26 WBC 9.20 (3.98-10.04) K/mm3 RBC 3.81 L (3.98-5.22) M/mm3 Hgb 10.8 L (11.2-15.7) gm/dl Hct 34.8 (34.1-44.9) % MCV 91.3 (79.4-94.8) fl MCH 28.3 (25.6-32.2) pg MCHC 31.0 L (32.2-35.5) g/dl RDW Std Deviation 54.4 H (36.4-46.3) fL Plt Count 244 (182-369) K/mm3 MPV 10.7 (9.4-12.3) fl Neut % (Auto) 59.3 (34.0-71.1) % Lymph % (Auto) 26.5 (19.3-51.7) % [place] % (Auto) 12.1 (4.7-12.5) % Eos % (Auto) 1.3 (0.7-5.8) Baso % (Auto) 0.4 (0.1-1.2) % Neut # (Auto) 5.45 (1.56-6.13) K/mm3 Lymph # (Auto) 2.44 (1.18-3.74) K/mm3 [place] # (Auto) 1.11 H (0.24-0.36) K/mm3 Eos # (Auto) 0.12 (0.04-0.36) K/mm3 Baso # (Auto) 0.04 (0.01-0.08) K/mm3 APTT 86 H D (22-31) SECONDS Sodium 138 (136-145) mEq/L Potassium 3.8 (3.5-5.1) mEq/L Chloride 100 (98-107) mEq/L Carbon Dioxide 32 (21-32) mEq/L Anion Gap 9.8 (5-15) BUN 38 H (7-18) mg/dL Creatinine 1.4 H (0.55-1.02) mg/dL Est Cr Clr Drug Dosing 30.28 mL/min Estimated GFR (MDRD) 36 (>60) mL/min BUN/Creatinine Ratio 26.4 H (14-18) Glucose 139 H (83-115) mg/dL Calcium 10.7 H (8.5-10.1) mg/dL Magnesium 1.4 L (1.8-2.4) mg/dl CK-MB (CK-2) 2.9 (0-3.6) ng/ml Troponin I 0.140 H* (0.00-0.056) ng/mL C-Reactive Protein 5.8 H* (<1.0) mg/dL Triglycerides 94 (<150) mg/dL Cholesterol 121 (<200) mg/dL LDL Cholesterol Direct 79 (<100) mg/dL HDL Cholesterol 30.0 L (40-59) mg/dL Vitamin D 25-Hydroxy (30.0-100.0) ng/ml Urine RBC (0-5) /hpf Urine WBC (0-5) /hpf Urine WBC Clumps (NOT SEEN) /hpf Ur Squamous Epith Cells (0-5) /hpf Urine Bacteria (FEW) /hpf Urine Mucus (FEW) /hpf Med Orders - Current: Current Medications Acetaminophen (Tylenol) 650 mg PO Q4H PRN PRN Reason: Pain (Mild 1-3)/fever Hydrocodone Bitart/Acetaminophen ([place] 325-5 Mg) 1 tab PO Q4H PRN PRN Reason: Pain (moderate 4-6) Albuterol/Ipratropium (Duoneb 3.0-0.5 Mg/3 Ml) 3 ml NEB Q4H PRN PRN Reason: Shortness Of Breath/wheezing Albuterol/Ipratropium (Duoneb 3.0-0.5 Mg/3 Ml) 3 ml INH BIDRT [facility] Last Admin: 10/24/18 06:13 Dose: 3 ml Allopurinol (Zyloprim) 300 mg PO DAILY [facility] Last Admin: 10/24/18 10:31 Dose: 300 mg Aspirin (Halfprin) 81 mg PO DAILY [facility] Last Admin: 10/24/18 10:32 Dose: 81 mg Bisacodyl (Dulcolax) 5 mg PO DAILY PRN PRN Reason: Constipation Cholecalciferol (Vitamin D3) 25 mcg PO DAILY [facility] Dicyclomine HCl (Bentyl) 20 mg PO QID [facility] Docusate Sodium (Colace) 100 mg PO BID PRN PRN Reason: Constipation Docusate Sodium (Colace) 100 mg PO BID [facility] Last Admin: 10/24/18 10:31 Dose: 100 mg Furosemide (Lasix) 40 mg PO DAILY [facility] Hydromorphone HCl (Dilaudid) 0.25 mg IVPUSH Q2H PRN PRN Reason: Pain (severe 7-10) Promethazine HCl 6.25 mg/ (Sodium Chloride) 50.25 mls @ 100 mls/hr IV Q6H PRN PRN Reason: Nausea/Vomiting Ceftriaxone Sodium 1 gm/ (Sodium Chloride) 100 mls @ 200 mls/hr IV Q24H [facility] Last Admin: 10/24/18 09:57 Dose: 200 mls/hr Heparin Sodium/Dextrose (Heparin 25,000 Units In D5w 500 Ml) 25,000 units in 500 mls @ 19.16 mls/hr IV TITRATE [facility]; Protocol Last Titration: 10/24/18 07:52 Dose: 10 units/kg/hr, 15.966 mls/hr Magnesium Sulfate 4 gm/ Premix 50 mls @ 12.5 mls/hr IV ONETIME ONE Stop: 10/24/18 13:19 Last Admin: 10/24/18 10:59 Dose: 12.5 mls/hr Nitroglycerin (Nitrostat) 0.4 mg SL Q5M PRN PRN Reason: Chest Pain Ondansetron HCl (Zofran) 4 mg IV Q6H PRN PRN Reason: Nausea/Vomiting Pantoprazole Sodium (Protonix) 40 mg PO BID [facility] Last Admin: 10/24/18 10:31 Dose: 40 mg Albuterol Sulfate [ Proair Respiclick] * *Pts Own Med 0 each INH BID PRN PRN Reason: Shortness of Breath Mometasone Furoate [ Asmanex 220 Mcg] Pt's Own Med 0 each INH BID [facility] Last Admin: 10/24/18 08:46 Dose: 1 each Rosuvastatin Calcium 40 Mg Pt's Own Med 0 each PO DAILY [facility] Polyethylene Glycol (Miralax) 17 gm PO DAILY PRN PRN Reason: Constipation Potassium Chloride (Klor-Con M20) 10 meq PO DAILY [facility] Last Admin: 10/24/18 10:32 Dose: 10 meq Saccharomyces Boulardii (Florastor) 250 mg PO DAILY [facility] Last Admin: 10/24/18 10:30 Dose: 250 mg Senna/Docusate Sodium (Senna Plus) 1 tab PO BID PRN PRN Reason: Constipation Sertraline HCl (Zoloft) 50 mg PO DAILY [facility] Last Admin: 10/24/18 10:31 Dose: 50 mg Temazepam (Restoril) 7.5 mg PO BEDTIME PRN PRN Reason: Sleep Discontinued Medications Albuterol/Ipratropium (Duoneb 3.0-0.5 Mg/3 Ml) 3 ml INH DAILY [facility] Apixaban (Eliquis) 10 mg PO BID [facility] Stop: 10/24/18 22:00 Last Admin: 10/23/18 22:04 Dose: 10 mg Apixaban (Eliquis) 5 mg PO BID [facility] Apixaban (Eliquis) 5 mg PO BID [facility] Cholecalciferol (Vitamin D3) 25 mcg PO DAILY [facility] Heparin Sodium (Porcine) (Heparin Sodium) 0 units IVPUSH .BOLUS ONE; Protocol Stop: 10/23/18 21:53 Last Admin: 10/24/18 04:51 Dose: Not Given Ceftriaxone Sodium 1 gm/ (Sodium Chloride) 100 mls @ 200 mls/hr IV ONETIME ONE Stop: 10/23/18 13:16 Last Admin: 10/23/18 13:13 Dose: 200 mls/hr Non-Formulary Medication (Furosemide [Furosemide]) 40 mg PO DAILY [facility] - Exam General: Alert, Oriented HEENT: Pupils Equal, Pupils Reactive, EOMI, Mucous Membr. Moist/[place] Neck: Supple Lungs: Clear to Auscultation, Normal Respiratory Effort Cardiovascular: Regular Rate, Regular Rhythm GI/Abdominal Exam: Normal Bowel Sounds, Soft, Non-Tender, No Organomegaly, No Distention Back Exam: Normal Inspection Extremities: Normal Inspection, Non-Tender, No Pedal Edema, Normal Capillary Refill Peripheral Pulses: 2+: Posterior Tibial (L), Posterior Tibial (R), Dorsalis Pedis (L), Dorsalis Pedis (R) Skin: Warm, Intact Neurological: No New Focal Deficit Psy/Mental Status: Alert, Normal Affect, Normal Mood - Problem List Review Problem List Initiated/Reviewed/Updated: Yes - Assessment Assessment:: Assessment: * Probable Catheter-Associated Urinary Tract Infection: recent history of catheter use * NSTEMI vs Troponin Leak: Initial and repeat EKG shows no acute ST-T wave changes, CKMB is negative. Lipid panel demonstrates decreased HDL * Leukocytosis: 11.42, chest xray shows no abnormal findings * Hypercalcemia with corrected calcium levels of 12.58. Vitamin D levels within normal * History of DVT of left leg - Plan Plan:: Plan: * Probable CAUTI * IV Rocephin and Probiotic * NSTEMI vs Troponin Leak * ASA * Heparin * Statin * Heart Healthy diet * Leukocytosis * Monitor * Treat underlying cause * Hypercalcemia * Hold vitamin D supplement * History of DVT * Discontinue Eliquis due to initiation of Heparin for NSTEMI * Code status: CPR only * DVT/GI prophylaxis * PT/OT to assess and treat * SW/CM for D/C planning * Resume home medication <Tico Merlos T - Last Filed: 10/24/18 20:03> - Patient Data Vitals - Most Recent: Last Vital Signs Temp 37.2 C 10/24/18 15:48 Pulse 76 10/24/18 15:50 Resp 20 10/24/18 15:48 BP 145/60 H 10/24/18 15:48 Pulse Ox 91 L 10/24/18 15:50 I&O - Last 24 Hours: Intake & Output 10/24/18 10/24/18 10/24/18 06:59 14:59 22:59 Intake Total 878 180 360 Output Total 900 Balance -22 180 360 Lab Results Last 24 Hours: Laboratory Results - last 24 hr 10/23/18 10/23/18 10/23/18 Range/Units 15:38 22:05 22:05 WBC (3.98-10.04) K/mm3 RBC (3.98-5.22) M/mm3 Hgb (11.2-15.7) gm/dl Hct (34.1-44.9) % MCV (79.4-94.8) fl MCH (25.6-32.2) pg MCHC (32.2-35.5) g/dl RDW Std Deviation (36.4-46.3) fL Plt Count 255 (182-369) K/mm3 MPV (9.4-12.3) fl Neut % (Auto) (34.0-71.1) % Lymph % (Auto) (19.3-51.7) % [place] % (Auto) (4.7-12.5) % Eos % (Auto) (0.7-5.8) Baso % (Auto) (0.1-1.2) % Neut # (Auto) (1.56-6.13) K/mm3 Lymph # (Auto) (1.18-3.74) K/mm3 [place] # (Auto) (0.24-0.36) K/mm3 Eos # (Auto) (0.04-0.36) K/mm3 Baso # (Auto) (0.01-0.08) K/mm3 APTT 32 H D (22-31) SECONDS Sodium (136-145) mEq/L Potassium (3.5-5.1) mEq/L Chloride (98-107) mEq/L Carbon Dioxide (21-32) mEq/L Anion Gap (5-15) BUN (7-18) mg/dL Creatinine (0.55-1.02) mg/dL Est Cr Clr Drug Dosing mL/min Estimated GFR (MDRD) (>60) mL/min BUN/Creatinine Ratio (14-18) Glucose (83-115) mg/dL Calcium (8.5-10.1) mg/dL Magnesium (1.8-2.4) mg/dl CK-MB (CK-2) 3.9 H (0-3.6) ng/ml Troponin I 0.164 H* (0.00-0.056) ng/mL C-Reactive Protein (<1.0) mg/dL Triglycerides (<150) mg/dL Cholesterol (<200) mg/dL LDL Cholesterol Direct (<100) mg/dL HDL Cholesterol (40-59) mg/dL 10/24/18 10/24/18 10/24/18 Range/Units 06:26 06:26 06:26 WBC 9.20 (3.98-10.04) K/mm3 RBC 3.81 L (3.98-5.22) M/mm3 Hgb 10.8 L (11.2-15.7) gm/dl Hct 34.8 (34.1-44.9) % MCV 91.3 (79.4-94.8) fl MCH 28.3 (25.6-32.2) pg MCHC 31.0 L (32.2-35.5) g/dl RDW Std Deviation 54.4 H (36.4-46.3) fL Plt Count 244 (182-369) K/mm3 MPV 10.7 (9.4-12.3) fl Neut % (Auto) 59.3 (34.0-71.1) % Lymph % (Auto) 26.5 (19.3-51.7) % [place] % (Auto) 12.1 (4.7-12.5) % Eos % (Auto) 1.3 (0.7-5.8) Baso % (Auto) 0.4 (0.1-1.2) % Neut # (Auto) 5.45 (1.56-6.13) K/mm3 Lymph # (Auto) 2.44 (1.18-3.74) K/mm3 [place] # (Auto) 1.11 H (0.24-0.36) K/mm3 Eos # (Auto) 0.12 (0.04-0.36) K/mm3 Baso # (Auto) 0.04 (0.01-0.08) K/mm3 APTT 86 H D (22-31) SECONDS Sodium 138 (136-145) mEq/L Potassium 3.8 (3.5-5.1) mEq/L Chloride 100 (98-107) mEq/L Carbon Dioxide 32 (21-32) mEq/L Anion Gap 9.8 (5-15) BUN 38 H (7-18) mg/dL Creatinine 1.4 H (0.55-1.02) mg/dL Est Cr Clr Drug Dosing 30.28 mL/min Estimated GFR (MDRD) 36 (>60) mL/min BUN/Creatinine Ratio 26.4 H (14-18) Glucose 139 H (83-115) mg/dL Calcium 10.7 H (8.5-10.1) mg/dL Magnesium 1.4 L (1.8-2.4) mg/dl CK-MB (CK-2) 2.9 (0-3.6) ng/ml Troponin I 0.140 H* (0.00-0.056) ng/mL C-Reactive Protein 5.8 H* (<1.0) mg/dL Triglycerides 94 (<150) mg/dL Cholesterol 121 (<200) mg/dL LDL Cholesterol Direct 79 (<100) mg/dL HDL Cholesterol 30.0 L (40-59) mg/dL 10/24/18 Range/Units 13:10 WBC (3.98-10.04) K/mm3 RBC (3.98-5.22) M/mm3 Hgb (11.2-15.7) gm/dl Hct (34.1-44.9) % MCV (79.4-94.8) fl MCH (25.6-32.2) pg MCHC (32.2-35.5) g/dl RDW Std Deviation (36.4-46.3) fL Plt Count (182-369) K/mm3 MPV (9.4-12.3) fl Neut % (Auto) (34.0-71.1) % Lymph % (Auto) (19.3-51.7) % [place] % (Auto) (4.7-12.5) % Eos % (Auto) (0.7-5.8) Baso % (Auto) (0.1-1.2) % Neut # (Auto) (1.56-6.13) K/mm3 Lymph # (Auto) (1.18-3.74) K/mm3 [place] # (Auto) (0.24-0.36) K/mm3 Eos # (Auto) (0.04-0.36) K/mm3 Baso # (Auto) (0.01-0.08) K/mm3 APTT 81 H D (22-31) SECONDS Sodium (136-145) mEq/L Potassium (3.5-5.1) mEq/L Chloride (98-107) mEq/L Carbon Dioxide (21-32) mEq/L Anion Gap (5-15) BUN (7-18) mg/dL Creatinine (0.55-1.02) mg/dL Est Cr Clr Drug Dosing mL/min Estimated GFR (MDRD) (>60) mL/min BUN/Creatinine Ratio (14-18) Glucose (83-115) mg/dL Calcium (8.5-10.1) mg/dL Magnesium (1.8-2.4) mg/dl CK-MB (CK-2) (0-3.6) ng/ml Troponin I (0.00-0.056) ng/mL C-Reactive Protein (<1.0) mg/dL Triglycerides (<150) mg/dL Cholesterol (<200) mg/dL LDL Cholesterol Direct (<100) mg/dL HDL Cholesterol (40-59) mg/dL Med Orders - Current: Current Medications Acetaminophen (Tylenol) 650 mg PO Q4H PRN PRN Reason: Pain (Mild 1-3)/fever Hydrocodone Bitart/Acetaminophen ([place] 325-5 Mg) 1 tab PO Q4H PRN PRN Reason: Pain (moderate 4-6) Albuterol (Proventil Hfa) 0 gm INH BID PRN PRN Reason: Shortness of Breath Albuterol/Ipratropium (Duoneb 3.0-0.5 Mg/3 Ml) 3 ml NEB Q4H PRN PRN Reason: Shortness Of Breath/wheezing Albuterol/Ipratropium (Duoneb 3.0-0.5 Mg/3 Ml) 3 ml INH BIDRT [facility] Allopurinol (Zyloprim) 300 mg PO DAILY [facility] Aspirin (Halfprin) 81 mg PO DAILY [facility] Last Admin: 10/24/18 10:32 Dose: 81 mg Bisacodyl (Dulcolax) 5 mg PO DAILY PRN PRN Reason: Constipation Cholecalciferol (Vitamin D3) 25 mcg PO DAILY [facility] Dicyclomine HCl (Bentyl) 20 mg PO QID [facility] Last Admin: 10/24/18 17:35 Dose: 20 mg Docusate Sodium (Colace) 100 mg PO BID PRN PRN Reason: Constipation Docusate Sodium (Colace) 100 mg PO BID [facility] Last Admin: 10/24/18 10:31 Dose: 100 mg Furosemide (Lasix) 40 mg PO DAILY [facility] Hydromorphone HCl (Dilaudid) 0.25 mg IVPUSH Q2H PRN PRN Reason: Pain (severe 7-10) Promethazine HCl 6.25 mg/ (Sodium Chloride) 50.25 mls @ 100 mls/hr IV Q6H PRN PRN Reason: Nausea/Vomiting Ceftriaxone Sodium 1 gm/ (Sodium Chloride) 100 mls @ 200 mls/hr IV Q24H [facility] Last Admin: 10/24/18 09:57 Dose: 200 mls/hr Heparin Sodium/Dextrose (Heparin 25,000 Units In D5w 500 Ml) 25,000 units in 500 mls @ 19.16 mls/hr IV TITRATE [facility]; Protocol Last Titration: 10/24/18 14:04 Dose: 8 units/kg/hr, 12.773 mls/hr Nitroglycerin (Nitrostat) 0.4 mg SL Q5M PRN PRN Reason: Chest Pain Ondansetron HCl (Zofran) 4 mg IV Q6H PRN PRN Reason: Nausea/Vomiting Pantoprazole Sodium (Protonix) 40 mg PO BID [facility] Mometasone Furoate [ Asmanex 220 Mcg] Pt's Own Med 0 each INH BID [facility] Last Admin: 10/24/18 08:46 Dose: 1 each Polyethylene Glycol (Miralax) 17 gm PO DAILY PRN PRN Reason: Constipation Potassium Chloride (Klor-Con 10) 10 meq PO DAILY [facility] Rosuvastatin Calcium (Crestor) 40 mg PO DAILY [facility] Saccharomyces Boulardii (Florastor) 250 mg PO DAILY [facility] Last Admin: 10/24/18 10:30 Dose: 250 mg Senna/Docusate Sodium (Senna Plus) 1 tab PO BID PRN PRN Reason: Constipation Sertraline HCl (Zoloft) 50 mg PO DAILY [facility] Temazepam (Restoril) 7.5 mg PO BEDTIME PRN PRN Reason: Sleep Discontinued Medications Albuterol (Proventil Hfa) 0 gm INH BID PRN PRN Reason: Shortness of Breath Albuterol/Ipratropium (Duoneb 3.0-0.5 Mg/3 Ml) 3 ml INH DAILY [facility] Albuterol/Ipratropium (Duoneb 3.0-0.5 Mg/3 Ml) 3 ml INH BIDRT [facility] Last Admin: 10/24/18 06:13 Dose: 3 ml Allopurinol (Zyloprim) 300 mg PO DAILY [facility] Last Admin: 10/24/18 10:31 Dose: 300 mg Apixaban (Eliquis) 10 mg PO BID [facility] Stop: 10/24/18 22:00 Last Admin: 10/23/18 22:04 Dose: 10 mg Apixaban (Eliquis) 5 mg PO BID [facility] Apixaban (Eliquis) 5 mg PO BID [facility] Cholecalciferol (Vitamin D3) 25 mcg PO DAILY [facility] Heparin Sodium (Porcine) (Heparin Sodium) 0 units IVPUSH .BOLUS ONE; Protocol Stop: 10/23/18 21:53 Last Admin: 10/24/18 04:51 Dose: Not Given Ceftriaxone Sodium 1 gm/ (Sodium Chloride) 100 mls @ 200 mls/hr IV ONETIME ONE Stop: 10/23/18 13:16 Last Admin: 10/23/18 13:13 Dose: 200 mls/hr Magnesium Sulfate 4 gm/ Premix 50 mls @ 12.5 mls/hr IV ONETIME ONE Stop: 10/24/18 13:19 Last Admin: 10/24/18 10:59 Dose: 12.5 mls/hr Non-Formulary Medication (Furosemide [Furosemide]) 40 mg PO DAILY [facility] Pantoprazole Sodium (Protonix) 40 mg PO BID [facility] Last Admin: 10/24/18 10:31 Dose: 40 mg Potassium Chloride (Klor-Con M20) 10 meq PO DAILY [facility] Last Admin: 10/24/18 10:32 Dose: 10 meq Potassium Chloride (Klor-Con 10) 10 meq PO DAILY [facility] Rosuvastatin Calcium (Crestor) 40 mg PO DAILY [facility] Sertraline HCl (Zoloft) 50 mg PO DAILY [facility] Last Admin: 10/24/18 10:31 Dose: 50 mg - My Orders Last 24 Hours: My Active Orders 10/23/18 21:00 Docusate Sodium [Colace] 100 mg PO BID Patient's Own Medication [Ptom] 0 each INH BID 10/23/18 21:52 EKG Documentation Completion [RC] ASDIRECTED EKG 12 Lead [EK] Routine 10/23/18 23:00 Heparin Sodium/D5W [Heparin 25,000 Units in D5W 500 ML] 25,000 units in 500 ml IV TITRATE 10/24/18 09:00 Aspirin [Halfprin] 81 mg PO DAILY Saccharomyces Boulardii [Florastor] 250 mg PO DAILY cefTRIAXone [Rocephin] 1 gm Sodium Chloride 0.9% [Normal Saline] 100 ml IV Q24H 10/24/18 14:15 Admission Status [Patient Status] [ADT] Routine 10/24/18 15:24 Albuterol/Ipratropium [DuoNeb 3.0-0.5 MG/3 ML] 3 ml INH BIDRT 10/24/18 15:28 Pantoprazole [ProTONIX] 40 mg PO BID 10/24/18 15:31 Potassium Chloride [Klor-Con 10] 10 meq PO DAILY 10/24/18 15:32 Albuterol [Proventil HFA] 0 gm INH BID PRN Sertraline [Zoloft] 50 mg PO DAILY 10/24/18 17:00 Dicyclomine [Bentyl] 20 mg PO QID 10/24/18 18:40 BASIC METABOLIC PANEL,BMP [CHEM] Timed MAGNESIUM [CHEM] Routine 10/24/18 20:00 aPTT [PTT,PARTIAL THROMBOPLSTIN TIME] [COAG] Timed 10/25/18 05:11 BASIC METABOLIC PANEL,BMP [CHEM] AM C-REACTIVE PROTEIN [CHEM] AM CBC WITH AUTO DIFF [HEME] AM 10/25/18 09:00 Allopurinol [Zyloprim] 300 mg PO DAILY Furosemide [Lasix] 40 mg PO DAILY Rosuvastatin [Crestor] 40 mg PO DAILY 10/26/18 05:11 BASIC METABOLIC PANEL,BMP [CHEM] AM C-REACTIVE PROTEIN [CHEM] AM CBC WITH AUTO DIFF [HEME] AM 10/27/18 05:11 BASIC METABOLIC PANEL,BMP [CHEM] AM C-REACTIVE PROTEIN [CHEM] AM CBC WITH AUTO DIFF [HEME] AM 10/28/18 05:11 BASIC METABOLIC PANEL,BMP [CHEM] AM C-REACTIVE PROTEIN [CHEM] AM CBC WITH AUTO DIFF [HEME] AM 10/28/18 09:00 Cholecalciferol (Vitamin D3) [Vitamin D3] 25 mcg PO DAILY - Plan Plan:: Patient seen and examined at beside in concert with the medical student. The assessment and plans were discussed and agreed upon with me. Patient had no overnight issues. She seems to be doing better this morning. Her repeat EKG shows sinus rhythm. Her Mg is mildly low at 1.4 and her Vit D level is within normal limits. We will continue with treatment as noted above.
[2018-10-24] MEDS ORDERED: Potassium Chloride 10 MEQ Tab.ER PO SCH (15:31)
[2018-10-24] MEDS ORDERED: Albuterol 6.7 GM Inhaler INH PRN (15:32)
[2018-10-24] MEDS: DICYCLOMINE 20 MG PO SCH ×2 (17:35→21:52)
[2018-10-24] MEDS: Albuterol/Ipratropium 3.0-0.5 MG/3 ML Neb Soln INH SCH (20:37)
[2018-10-24] MEDS ORDERED: Heparin Sodium 5,000 Units/ML Vial IVPUSH ONE (21:31)
[2018-10-25] MEDS ORDERED: Heparin Sodium 5,000 Units/ML Vial IVPUSH ONE (02:51)
[2018-10-25] MEDS ORDERED: Heparin Sodium/D5W 25,000 UNITS/500 ML BAG IV SCH (02:53)
[2018-10-25] MEDS: Albuterol/Ipratropium 3.0-0.5 MG/3 ML Neb Soln INH SCH ×4 (05:43→21:54)
--- NOTE | 2018-10-25 07:13 | PCM.PN ---
- General Info Date of Service: 10/25/18 Admission Dx/Problem (Free Text): Admission Diagnosis/Problem Admission Diagnosis/Problem Urinary tract infection Subjective Update: No over night issued. She feels pretty good this morning Functional Status: Reports: Pain Controlled, Tolerating Diet, Ambulating, Urinating. Denies: New Symptoms - Review of Systems General: Denies: Fever, Weakness, Fatigue, Malaise, Chills HEENT: Reports: No Symptoms Pulmonary: Reports: Other (2l baseline supplemental O2). Denies: Shortness of Breath Cardiovascular: Denies: Chest Pain, Dyspnea on Exertion, Lightheadedness Gastrointestinal: Denies: Abdominal Pain, Nausea, Vomiting Genitourinary: Reports: No Symptoms Musculoskeletal: Reports: Back Pain (chronic) Skin: Denies: Bruising, Pruritis, Rash Neurological: Reports: Difficulty Walking, Gait Disturbance. Denies: Weakness Psychiatric: Denies: Depression, Anxiety, Agitation, Hallucinations - Patient Data Vitals - Most Recent: Last Vital Signs Temp 36.8 C 10/25/18 03:30 Pulse 64 10/25/18 03:32 Resp 16 10/25/18 03:30 BP 141/98 H 10/25/18 03:32 Pulse Ox 97 10/25/18 03:32 Weight - Most Recent: 81.647 kg I&O - Last 24 Hours: Intake & Output 10/24/18 10/25/18 10/25/18 22:59 06:59 14:59 Intake Total 1310 1142 Balance 1310 1142 Lab Results Last 24 Hours: Laboratory Results - last 24 hr 10/24/18 10/24/18 10/24/18 Range/Units 06:26 06:26 13:10 WBC (3.98-10.04) K/mm3 RBC (3.98-5.22) M/mm3 Hgb (11.2-15.7) gm/dl Hct (34.1-44.9) % MCV (79.4-94.8) fl MCH (25.6-32.2) pg MCHC (32.2-35.5) g/dl RDW Std Deviation (36.4-46.3) fL Plt Count (182-369) K/mm3 MPV (9.4-12.3) fl Neut % (Auto) (34.0-71.1) % Lymph % (Auto) (19.3-51.7) % [place] % (Auto) (4.7-12.5) % Eos % (Auto) (0.7-5.8) Baso % (Auto) (0.1-1.2) % Neut # (Auto) (1.56-6.13) K/mm3 Lymph # (Auto) (1.18-3.74) K/mm3 [place] # (Auto) (0.24-0.36) K/mm3 Eos # (Auto) (0.04-0.36) K/mm3 Baso # (Auto) (0.01-0.08) K/mm3 APTT 86 H D 81 H D (22-31) SECONDS Sodium 138 (136-145) mEq/L Potassium 3.8 (3.5-5.1) mEq/L Chloride 100 (98-107) mEq/L Carbon Dioxide 32 (21-32) mEq/L Anion Gap 9.8 (5-15) BUN 38 H (7-18) mg/dL Creatinine 1.4 H (0.55-1.02) mg/dL Est Cr Clr Drug Dosing 30.28 mL/min Estimated GFR (MDRD) 36 (>60) mL/min BUN/Creatinine Ratio 26.4 H (14-18) Glucose 139 H (83-115) mg/dL Calcium 10.7 H (8.5-10.1) mg/dL Magnesium 1.4 L (1.8-2.4) mg/dl CK-MB (CK-2) 2.9 (0-3.6) ng/ml Troponin I 0.140 H* (0.00-0.056) ng/mL C-Reactive Protein 5.8 H* (<1.0) mg/dL Triglycerides 94 (<150) mg/dL Cholesterol 121 (<200) mg/dL LDL Cholesterol Direct 79 (<100) mg/dL HDL Cholesterol 30.0 L (40-59) mg/dL 10/24/18 10/24/18 10/24/18 Range/Units 20:14 20:14 20:14 WBC (3.98-10.04) K/mm3 RBC (3.98-5.22) M/mm3 Hgb (11.2-15.7) gm/dl Hct (34.1-44.9) % MCV (79.4-94.8) fl MCH (25.6-32.2) pg MCHC (32.2-35.5) g/dl RDW Std Deviation (36.4-46.3) fL Plt Count (182-369) K/mm3 MPV (9.4-12.3) fl Neut % (Auto) (34.0-71.1) % Lymph % (Auto) (19.3-51.7) % [place] % (Auto) (4.7-12.5) % Eos % (Auto) (0.7-5.8) Baso % (Auto) (0.1-1.2) % Neut # (Auto) (1.56-6.13) K/mm3 Lymph # (Auto) (1.18-3.74) K/mm3 [place] # (Auto) (0.24-0.36) K/mm3 Eos # (Auto) (0.04-0.36) K/mm3 Baso # (Auto) (0.01-0.08) K/mm3 APTT 45 H D (22-31) SECONDS Sodium 135 L (136-145) mEq/L Potassium 3.7 (3.5-5.1) mEq/L Chloride 100 (98-107) mEq/L Carbon Dioxide 30 (21-32) mEq/L Anion Gap 8.7 (5-15) BUN 28 H (7-18) mg/dL Creatinine 1.4 H (0.55-1.02) mg/dL Est Cr Clr Drug Dosing 30.28 mL/min Estimated GFR (MDRD) 36 (>60) mL/min BUN/Creatinine Ratio 20.0 H (14-18) Glucose 170 H (83-115) mg/dL Calcium 10.8 H (8.5-10.1) mg/dL Magnesium 2.6 H (1.8-2.4) mg/dl CK-MB (CK-2) (0-3.6) ng/ml Troponin I (0.00-0.056) ng/mL C-Reactive Protein (<1.0) mg/dL Triglycerides (<150) mg/dL Cholesterol (<200) mg/dL LDL Cholesterol Direct (<100) mg/dL HDL Cholesterol (40-59) mg/dL 10/25/18 10/25/18 10/25/18 Range/Units 04:12 04:12 04:12 WBC 9.71 (3.98-10.04) K/mm3 RBC 3.76 L (3.98-5.22) M/mm3 Hgb 10.9 L (11.2-15.7) gm/dl Hct 34.0 L (34.1-44.9) % MCV 90.4 (79.4-94.8) fl MCH 29.0 (25.6-32.2) pg MCHC 32.1 L (32.2-35.5) g/dl RDW Std Deviation 53.2 H (36.4-46.3) fL Plt Count 264 (182-369) K/mm3 MPV 10.7 (9.4-12.3) fl Neut % (Auto) 60.7 (34.0-71.1) % Lymph % (Auto) 23.9 (19.3-51.7) % [place] % (Auto) 13.1 H (4.7-12.5) % Eos % (Auto) 1.5 (0.7-5.8) Baso % (Auto) 0.4 (0.1-1.2) % Neut # (Auto) 5.89 (1.56-6.13) K/mm3 Lymph # (Auto) 2.32 (1.18-3.74) K/mm3 [place] # (Auto) 1.27 H (0.24-0.36) K/mm3 Eos # (Auto) 0.15 (0.04-0.36) K/mm3 Baso # (Auto) 0.04 (0.01-0.08) K/mm3 APTT 59 H D (22-31) SECONDS Sodium 137 (136-145) mEq/L Potassium 3.5 (3.5-5.1) mEq/L Chloride 99 (98-107) mEq/L Carbon Dioxide 30 (21-32) mEq/L Anion Gap 11.5 (5-15) BUN 28 H (7-18) mg/dL Creatinine 1.3 H (0.55-1.02) mg/dL Est Cr Clr Drug Dosing 32.61 mL/min Estimated GFR (MDRD) 40 (>60) mL/min BUN/Creatinine Ratio 21.5 H (14-18) Glucose 137 H (83-115) mg/dL Calcium 10.4 H (8.5-10.1) mg/dL Magnesium (1.8-2.4) mg/dl CK-MB (CK-2) (0-3.6) ng/ml Troponin I (0.00-0.056) ng/mL C-Reactive Protein 5.5 H* (<1.0) mg/dL Triglycerides (<150) mg/dL Cholesterol (<200) mg/dL LDL Cholesterol Direct (<100) mg/dL HDL Cholesterol (40-59) mg/dL Med Orders - Current: Current Medications Acetaminophen (Tylenol) 650 mg PO Q4H PRN PRN Reason: Pain (Mild 1-3)/fever Hydrocodone Bitart/Acetaminophen ([place] 325-5 Mg) 1 tab PO Q4H PRN PRN Reason: Pain (moderate 4-6) Albuterol (Proventil Hfa) 0 gm INH BID PRN PRN Reason: Shortness of Breath Albuterol/Ipratropium (Duoneb 3.0-0.5 Mg/3 Ml) 3 ml NEB Q4H PRN PRN Reason: Shortness Of Breath/wheezing Albuterol/Ipratropium (Duoneb 3.0-0.5 Mg/3 Ml) 3 ml INH BID [facility] Allopurinol (Zyloprim) 300 mg PO DAILY [facility] Apixaban (Eliquis) 10 mg PO BID [facility] Aspirin (Halfprin) 81 mg PO DAILY [facility] Last Admin: 10/24/18 10:32 Dose: 81 mg Bisacodyl (Dulcolax) 5 mg PO DAILY PRN PRN Reason: Constipation Cholecalciferol (Vitamin D3) 25 mcg PO DAILY [facility] Dicyclomine HCl (Bentyl) 20 mg PO QID [facility] Last Admin: 10/24/18 21:52 Dose: 20 mg Docusate Sodium (Colace) 100 mg PO BID PRN PRN Reason: Constipation Docusate Sodium (Colace) 100 mg PO BID [facility] Last Admin: 10/24/18 21:52 Dose: 100 mg Furosemide (Lasix) 40 mg PO DAILY [facility] Hydromorphone HCl (Dilaudid) 0.25 mg IVPUSH Q2H PRN PRN Reason: Pain (severe 7-10) Promethazine HCl 6.25 mg/ (Sodium Chloride) 50.25 mls @ 100 mls/hr IV Q6H PRN PRN Reason: Nausea/Vomiting Ceftriaxone Sodium 1 gm/ (Sodium Chloride) 100 mls @ 200 mls/hr IV Q24H [facility] Last Admin: 10/24/18 09:57 Dose: 200 mls/hr Heparin Sodium/Dextrose (Heparin 25,000 Units In D5w 500 Ml) 25,000 units in 500 mls @ 16.021 mls/hr IV TITRATE [facility]; Protocol Last Admin: 10/25/18 03:24 Dose: 10 units/kg/hr, 16.021 mls/hr Nitroglycerin (Nitrostat) 0.4 mg SL Q5M PRN PRN Reason: Chest Pain Ondansetron HCl (Zofran) 4 mg IV Q6H PRN PRN Reason: Nausea/Vomiting Pantoprazole Sodium (Protonix) 40 mg PO BID [facility] Last Admin: 10/24/18 21:52 Dose: 40 mg Mometasone Furoate [ Asmanex 220 Mcg] Pt's Own Med 0 each INH BID [facility] Last Admin: 10/24/18 20:37 Dose: 1 each Polyethylene Glycol (Miralax) 17 gm PO DAILY PRN PRN Reason: Constipation Last Admin: 10/24/18 21:52 Dose: 17 gm Potassium Chloride (Klor-Con 10) 10 meq PO DAILY [facility] Rosuvastatin Calcium (Crestor) 40 mg PO DAILY [facility] Saccharomyces Boulardii (Florastor) 250 mg PO DAILY [facility] Last Admin: 10/24/18 10:30 Dose: 250 mg Senna/Docusate Sodium (Senna Plus) 1 tab PO BID PRN PRN Reason: Constipation Sertraline HCl (Zoloft) 50 mg PO DAILY [facility] Temazepam (Restoril) 7.5 mg PO BEDTIME PRN PRN Reason: Sleep Discontinued Medications Albuterol (Proventil Hfa) 0 gm INH BID PRN PRN Reason: Shortness of Breath Albuterol/Ipratropium (Duoneb 3.0-0.5 Mg/3 Ml) 3 ml INH DAILY [facility] Albuterol/Ipratropium (Duoneb 3.0-0.5 Mg/3 Ml) 3 ml INH BIDRT [facility] Last Admin: 10/24/18 06:13 Dose: 3 ml Albuterol/Ipratropium (Duoneb 3.0-0.5 Mg/3 Ml) 3 ml INH BIDRT [facility] Last Admin: 10/25/18 05:43 Dose: Not Given Allopurinol (Zyloprim) 300 mg PO DAILY [facility] Last Admin: 10/24/18 10:31 Dose: 300 mg Apixaban (Eliquis) 10 mg PO BID [facility] Stop: 10/24/18 22:00 Last Admin: 10/23/18 22:04 Dose: 10 mg Apixaban (Eliquis) 5 mg PO BID [facility] Apixaban (Eliquis) 5 mg PO BID [facility] Cholecalciferol (Vitamin D3) 25 mcg PO DAILY [facility] Heparin Sodium (Porcine) (Heparin Sodium) 0 units IVPUSH .BOLUS ONE; Protocol Stop: 10/23/18 21:53 Last Admin: 10/24/18 04:51 Dose: Not Given Heparin Sodium (Porcine) (Heparin Sodium) 1,000 units IVPUSH ONETIME ONE Stop: 10/24/18 21:32 Last Admin: 10/24/18 21:53 Dose: 1,000 units Heparin Sodium (Porcine) (Heparin Sodium) 0 units IVPUSH .BOLUS ONE; Protocol Stop: 10/25/18 02:52 Last Admin: 10/25/18 03:08 Dose: Not Given Ceftriaxone Sodium 1 gm/ (Sodium Chloride) 100 mls @ 200 mls/hr IV ONETIME ONE Stop: 10/23/18 13:16 Last Admin: 10/23/18 13:13 Dose: 200 mls/hr Heparin Sodium/Dextrose (Heparin 25,000 Units In D5w 500 Ml) 25,000 units in 500 mls @ 15.966 mls/hr IV TITRATE [facility]; Protocol Stop: 10/24/18 23:00 Last Titration: 10/24/18 21:58 Dose: 10.02 units/kg/hr, 16 mls/hr Magnesium Sulfate 4 gm/ Premix 50 mls @ 12.5 mls/hr IV ONETIME ONE Stop: 10/24/18 13:19 Last Admin: 10/24/18 10:59 Dose: 12.5 mls/hr Non-Formulary Medication (Furosemide [Furosemide]) 40 mg PO DAILY [facility] Pantoprazole Sodium (Protonix) 40 mg PO BID [facility] Last Admin: 10/24/18 10:31 Dose: 40 mg Potassium Chloride (Klor-Con M20) 10 meq PO DAILY [facility] Last Admin: 10/24/18 10:32 Dose: 10 meq Potassium Chloride (Klor-Con 10) 10 meq PO DAILY [facility] Rosuvastatin Calcium (Crestor) 40 mg PO DAILY [facility] Sertraline HCl (Zoloft) 50 mg PO DAILY [facility] Last Admin: 10/24/18 10:31 Dose: 50 mg - Exam General: Alert, Oriented, Cooperative HEENT: Pupils Equal, Pupils Reactive, EOMI, Mucous Membr. Moist/[place] Neck: Supple Lungs: Clear to Auscultation, Normal Respiratory Effort Cardiovascular: Regular Rate, Regular Rhythm GI/Abdominal Exam: Normal Bowel Sounds, Soft, Non-Tender, No Organomegaly, No Distention, No Abnormal Bruit (Female) Exam: Deferred Back Exam: Normal Inspection, Decreased Range of Motion Extremities: Normal Inspection, Normal Range of Motion, Non-Tender, No Pedal Edema, Normal Capillary Refill Peripheral Pulses: 2+: Posterior Tibial (L), Posterior Tibial (R), Dorsalis Pedis (L), Dorsalis Pedis (R) Skin: Warm, Dry, Intact Neurological: No New Focal Deficit. No: Normal Gait Psy/Mental Status: Alert, Normal Affect, Suicidal Ideation - Problem List Review Problem List Initiated/Reviewed/Updated: Yes - My Orders Last 24 Hours: My Active Orders 10/24/18 09:00 Aspirin [Halfprin] 81 mg PO DAILY Saccharomyces Boulardii [Florastor] 250 mg PO DAILY cefTRIAXone [Rocephin] 1 gm Sodium Chloride 0.9% [Normal Saline] 100 ml IV Q24H 10/24/18 14:15 Admission Status [Patient Status] [ADT] Routine 10/24/18 15:28 Pantoprazole [ProTONIX] 40 mg PO BID 10/24/18 15:31 Potassium Chloride [Klor-Con 10] 10 meq PO DAILY 10/24/18 15:32 Albuterol [Proventil HFA] 0 gm INH BID PRN Sertraline [Zoloft] 50 mg PO DAILY 10/24/18 17:00 Dicyclomine [Bentyl] 20 mg PO QID 10/25/18 02:53 Heparin Sodium/D5W [Heparin 25,000 Units in D5W 500 ML] 25,000 units in 500 ml IV TITRATE 10/25/18 09:00 Albuterol/Ipratropium [DuoNeb 3.0-0.5 MG/3 ML] 3 ml INH BID Allopurinol [Zyloprim] 300 mg PO DAILY Apixaban [Eliquis] 10 mg PO BID Furosemide [Lasix] 40 mg PO DAILY Rosuvastatin [Crestor] 40 mg PO DAILY 10/25/18 11:00 aPTT [PTT,PARTIAL THROMBOPLSTIN TIME] [COAG] Routine 10/26/18 05:11 BASIC METABOLIC PANEL,BMP [CHEM] AM C-REACTIVE PROTEIN [CHEM] AM CBC WITH AUTO DIFF [HEME] AM 10/26/18 07:00 CBC W/O DIFF,HEMOGRAM [HEME] MOTH@0700 10/27/18 05:11 BASIC METABOLIC PANEL,BMP [CHEM] AM C-REACTIVE PROTEIN [CHEM] AM CBC WITH AUTO DIFF [HEME] AM 10/28/18 05:11 BASIC METABOLIC PANEL,BMP [CHEM] AM C-REACTIVE PROTEIN [CHEM] AM CBC WITH AUTO DIFF [HEME] AM 10/28/18 09:00 Cholecalciferol (Vitamin D3) [Vitamin D3] 25 mcg PO DAILY 10/30/18 07:00 CBC W/O DIFF,HEMOGRAM [HEME] MOTH@0700 11/02/18 07:00 CBC W/O DIFF,HEMOGRAM [HEME] MOTH@0700 11/06/18 07:00 CBC W/O DIFF,HEMOGRAM [HEME] MOTH@0700 11/09/18 07:00 CBC W/O DIFF,HEMOGRAM [HEME] MOTH@0700 11/13/18 07:00 CBC W/O DIFF,HEMOGRAM [HEME] MOTH@0700 - Assessment Assessment:: Assessment: * Probable Catheter-Associated Urinary Tract Infection: recent history of catheter use * NSTEMI: Initial and repeat EKG shows no acute ST-T wave changes, CKMB is negative. S/p heparin drip, ASA and Statin * Leukocytosis: 11.42-->9.20-->9.71, chest x-ray shows no abnormal findings * Hypercalcemia with corrected calcium levels of 12.58-->10.8-->10.4. 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
[2018-10-25] MEDS: MOMETASONE FUROATE INH SCH ×2 (08:46→20:27)
[2018-10-25] MEDS ORDERED: APIXABAN 5 MG PO SCH (09:00)
[2018-10-25] MEDS ORDERED: Rosuvastatin 10 MG Tab PO SCH ×2 (09:00→21:00)
[2018-10-25] MEDS: Saccharomyces Boulardii (Probiotic) 250 MG Cap PO SCH (10:09)
[2018-10-25] MEDS: SERTRALINE 50 MG PO SCH (10:09)
[2018-10-25] MEDS: PANTOPRAZOLE PO SCH ×2 (10:09→21:07)
[2018-10-25] MEDS: DOCUSATE SODIUM PO SCH ×2 (10:09→21:07)
[2018-10-25] MEDS: ALLOPURINOL 300 MG PO SCH (10:09)
[2018-10-25] MEDS: DICYCLOMINE 20 MG PO SCH ×4 (10:09→21:07)
[2018-10-25] MEDS: Furosemide 40 MG Tab PO SCH (10:09)
[2018-10-25] MEDS: Potassium Chloride 10 MEQ Tab.ER PO SCH (10:09)
[2018-10-25] MEDS: cefTRIAXone 1 GM in Sodium Chloride 0.9% 100 ML IV SCH (10:38)
[2018-10-25] MEDS: ASPIRIN 81 MG PO SCH (10:45)
[2018-10-25] MEDS: Apixaban 5 MG Tab PO SCH ×2 (10:45→21:08)
[2018-10-25] MEDS ORDERED: Non-Formulary Medication 1 Each (Atorvastatin Calcium [Atorvastatin Calcium] 80 MG) PO SCH (21:00)
[2018-10-25] MEDS ORDERED: Apixaban 5 MG Tab PO SCH (21:54)
[2018-10-26 07:45] VITALS: PULSE 79
[2018-10-26] MEDS: Albuterol/Ipratropium 3.0-0.5 MG/3 ML Neb Soln INH SCH (08:54)
[2018-10-26] MEDS ORDERED: Apixaban 5 MG Tab PO SCH (09:00)
[2018-10-26] MEDS: MOMETASONE FUROATE INH SCH (09:00)
[2018-10-26] MEDS: cefTRIAXone 1 GM in Sodium Chloride 0.9% 100 ML IV SCH (09:08)
[2018-10-26] MEDS: Saccharomyces Boulardii (Probiotic) 250 MG Cap PO SCH (09:12)
[2018-10-26] MEDS: DICYCLOMINE 20 MG PO SCH ×2 (09:12→13:05)
[2018-10-26] MEDS: ASPIRIN 81 MG PO SCH (09:13)
[2018-10-26] MEDS: Furosemide 40 MG Tab PO SCH (09:13)
[2018-10-26] MEDS: PANTOPRAZOLE PO SCH (09:14)
[2018-10-26] MEDS: DOCUSATE SODIUM PO SCH (09:14)
[2018-10-26] MEDS: SERTRALINE 50 MG PO SCH (09:14)
[2018-10-26] MEDS: Potassium Chloride 10 MEQ Tab.ER PO SCH (09:15)
[2018-10-26] MEDS: ALLOPURINOL 300 MG PO SCH (09:15)
--- NOTE | 2018-10-26 11:50 | PCM.DCSUM1 ---
<Martha Puente - Last Filed: 10/26/18 11:36> Discharge Summary - Hospital Course HPI Initial Comments: 78 year old female who was recently hospitalization in [place] 4 days ago for CHF and blood clots in her left lower legs with catheterization who presented to the ER with a fever that was detected by her home health nurse. She did feel like she was improving, however she felt worse that day. She noted that she has had some stomach pain and pain in her left leg, as well as decreased appetite and fatigue. She also reported some shortness of breath, a non productive cough in the morning, lower back pain and burning with urination. She normally has increased frequency due to furosemide and her diabetes, but she did report more urgency than normal.In the ED the patient had CBC, CMP Chest Xray, EKG and urine culture done. CBC demonstrated elevated white blood cell count of 11.42. CMP demonstrated creatine of 1.5, GFR of 34, hypercalcemia of 11.3 and elevated troponin levels of 0.166. EKG demonstrated no ST elevation. The patient was admitted to the hospital for NSTEMI with possible CAUTI and hypercalcemia. Hospital course was unremarkable. Patient received 3 day course of antibiotics and IV fluids. Her vitamin D supplementation was discontinued after vitamin D levels were normal due to hypercalcemia. UA and culture were negative for UTI. Patient switched from Eliquis to Heparin for 24 for management of her NSTEMI with addition of aspirin and a statin. She will continue her aspirin and statin and was switched back to apixaban for management of her DVT. She was also counseled on a heart healthy diet. Her vitamin D supplement was changed to every other day due to her hypercalcemia. She will seek medical care if symptoms worsen. Diagnosis: Stroke: No - Discharge Data Discharge Date: 10/26/18 Discharge Disposition: Home, Self-Care 01 Condition: Good - Referral to Home Health Primary Care Physician: Shell Arambula MD - Patient Summary/Data Consults: Consultations 10/23/18 14:03 Consult to Case Management/Guideman [CONS] Routine OT Evaluation and Treatment [CONS] Routine PT Evaluation and Treatment [CONS] Routine - Patient Instructions Diet: Heart Healthy Diet Activity: As Tolerated Driving: May Drive Today Showering/Bathing: May Shower Notify Provider of: Fever, Increased Pain, Nausea and/or Vomiting - Discharge Plan *PRESCRIPTION DRUG MONITORING PROGRAM REVIEWED*: No *COPY OF PRESCRIPTION DRUG MONITORING REPORT IN PATIENT CHRISTOPHE: No Home Medications: Home Meds Albuterol Sulfate [Proair Respiclick] 2 puff INH BID PRN 10/16/18 [History] Albuterol/Ipratropium [DuoNeb 3.0-0.5 MG/3 ML] 3 ml INH BID 10/16/18 [History] Allopurinol [Zyloprim] 300 mg PO DAILY 10/16/18 [History] Aspirin 81 mg PO DAILY 10/16/18 [History] Dicyclomine [Bentyl] 20 mg PO QID 10/16/18 [History] Docusate Sodium 100 mg PO BID 10/16/18 [History] Furosemide 40 mg PO DAILY 10/16/18 [History] Mometasone Furoate [Asmanex 220 MCG] 1 puff INH BID 10/16/18 [History] Nitroglycerin 0.4 mg PO Q5M PRN MDD 3 doses 10/16/18 [History] Pantoprazole [ProTONIX] 40 mg PO BID 10/16/18 [History] Potassium Chloride 10 meq PO DAILY 10/16/18 [History] Sertraline [Zoloft] 50 mg PO DAILY 10/16/18 [History] Apixaban [Eliquis] 10 mg PO BID 10/23/18 [History] atorvaSTATin Calcium [Atorvastatin Calcium] 80 mg PO BEDTIME 10/25/18 [History] Cholecalciferol (Vitamin D3) [Vitamin D3] 1,000 mg PO Q48H #0 10/26/18 [Rx] Patient Handouts: Hypercalcemia, Urinary Tract Infection, Adult, [id number], Home Oxygen Use, Adult, Heart Attack, [id number], Living With Heart Failure Referrals: Shell Arambula MD [Primary Care Provider] - 11/03/18 10:00 am ( please attend the scheduled follow up appointment with Dr. Payne) - Discharge Summary/Plan Comment DC Time >30 min.: No Discharge Summary/Plan Comment: Assessment: * NSTEMI: Initial and repeat EKG shows no acute ST-T wave changes, CKMB is negative. S/p heparin drip, ASA and Statin. Patient to continue aspirin and statin therapy. She was counseled on a heart healthy diet as well. * Leukocytosis: 11.42-->9.20-->9.71, chest x-ray shows no abnormal findings * Hypercalcemia with corrected calcium levels of 12.58-->10.8-->10.4. Vitamin D levels within normal. The patient was discharged with instructions to take her vitamin D supplement every other day. 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 Plan: * See above - General Info Date of Service: 10/26/18 Admission Dx/Problem (Free Text: Admission Diagnosis/Problem Admission Diagnosis/Problem Urinary tract infection Subjective Update: Patient is doing well today. She is able to ambulate and has no issues with urination or constipation. Her appetite has been good and she is anxious to go home. Functional Status: Reports: Tolerating Diet, Ambulating, Urinating - Review of Systems General: Reports: No Symptoms HEENT: Reports: No Symptoms Pulmonary: Reports: No Symptoms Cardiovascular: Reports: No Symptoms Gastrointestinal: Reports: No Symptoms Genitourinary: Reports: No Symptoms Musculoskeletal: Reports: No Symptoms Skin: Reports: No Symptoms Neurological: Reports: No Symptoms Psychiatric: Reports: No Symptoms - Patient Data Vitals - Most Recent: Last Vital Signs Temp 97.3 F 10/26/18 07:44 Pulse 79 10/26/18 07:44 Resp 18 10/26/18 07:44 BP 135/92 H 10/26/18 09:18 Pulse Ox 96 10/26/18 08:56 Weight - Most Recent: 82.146 kg I&O - Last 24 hours: Intake & Output 10/25/18 10/26/18 10/26/18 22:59 06:59 14:59 Intake Total 1982 600 180 Output Total 1100 1350 Balance 882 -750 180 Lab Results - Last 24 hrs: Laboratory Results - last 24 hr 10/26/18 10/26/18 Range/Units 05:15 05:15 WBC 8.68 (3.98-10.04) K/mm3 RBC 3.63 L (3.98-5.22) M/mm3 Hgb 10.3 L (11.2-15.7) gm/dl Hct 33.0 L (34.1-44.9) % MCV 90.9 (79.4-94.8) fl MCH 28.4 (25.6-32.2) pg MCHC 31.2 L (32.2-35.5) g/dl RDW Std Deviation 53.5 H (36.4-46.3) fL Plt Count 279 (182-369) K/mm3 MPV 11.4 (9.4-12.3) fl Neut % (Auto) 59.2 (34.0-71.1) % Lymph % (Auto) 24.2 (19.3-51.7) % Curry % (Auto) 13.8 H (4.7-12.5) % Eos % (Auto) 1.6 (0.7-5.8) Baso % (Auto) 0.5 (0.1-1.2) % Neut # (Auto) 5.14 (1.56-6.13) K/mm3 Lymph # (Auto) 2.10 (1.18-3.74) K/mm3 Curry # (Auto) 1.20 H (0.24-0.36) K/mm3 Eos # (Auto) 0.14 (0.04-0.36) K/mm3 Baso # (Auto) 0.04 (0.01-0.08) K/mm3 Sodium 138 (136-145) mEq/L Potassium 3.9 (3.5-5.1) mEq/L Chloride 101 (98-107) mEq/L Carbon Dioxide 30 (21-32) mEq/L Anion Gap 10.9 (5-15) BUN 26 H (7-18) mg/dL Creatinine 1.4 H (0.55-1.02) mg/dL Est Cr Clr Drug Dosing 30.28 mL/min Estimated GFR (MDRD) 36 (>60) mL/min BUN/Creatinine Ratio 18.6 H (14-18) Glucose 127 H (83-115) mg/dL Calcium 10.3 H (8.5-10.1) mg/dL C-Reactive Protein 4.6 H* (<1.0) mg/dL ZACKERY Results - Last 24 hrs: Microbiology 10/23/18 11:15 Urine Culture - Final Urine, Catheterized Med Orders - Current: Current Medications Acetaminophen (Tylenol) 650 mg PO Q4H PRN PRN Reason: Pain (Mild 1-3)/fever Hydrocodone Bitart/Acetaminophen (Hood 325-5 Mg) 1 tab PO Q4H PRN PRN Reason: Pain (moderate 4-6) Albuterol (Proventil Hfa) 0 gm INH BID PRN PRN Reason: Shortness of Breath Albuterol/Ipratropium (Duoneb 3.0-0.5 Mg/3 Ml) 3 ml NEB Q4H PRN PRN Reason: Shortness Of Breath/wheezing Albuterol/Ipratropium (Duoneb 3.0-0.5 Mg/3 Ml) 3 ml INH BID [facility] Last Admin: 10/26/18 08:54 Dose: 3 ml Allopurinol (Zyloprim) 300 mg PO DAILY [facility] Last Admin: 10/26/18 09:15 Dose: 300 mg Apixaban (Eliquis) 5 mg PO BID [facility] Last Admin: 10/26/18 09:15 Dose: 5 mg Aspirin (Halfprin) 81 mg PO DAILY [facility] Last Admin: 10/26/18 09:13 Dose: 81 mg Bisacodyl (Dulcolax) 5 mg PO DAILY PRN PRN Reason: Constipation Last Admin: 10/25/18 11:14 Dose: 5 mg Cholecalciferol (Vitamin D3) 25 mcg PO DAILY [facility] Dicyclomine HCl (Bentyl) 20 mg PO QID [facility] Last Admin: 10/26/18 09:12 Dose: 20 mg Docusate Sodium (Colace) 100 mg PO BID PRN PRN Reason: Constipation Docusate Sodium (Colace) 100 mg PO BID [facility] Last Admin: 10/26/18 09:14 Dose: Not Given Furosemide (Lasix) 40 mg PO DAILY [facility] Last Admin: 10/26/18 09:13 Dose: 40 mg Hydromorphone HCl (Dilaudid) 0.25 mg IVPUSH Q2H PRN PRN Reason: Pain (severe 7-10) Promethazine HCl 6.25 mg/ (Sodium Chloride) 50.25 mls @ 100 mls/hr IV Q6H PRN PRN Reason: Nausea/Vomiting Ceftriaxone Sodium 1 gm/ (Sodium Chloride) 100 mls @ 200 mls/hr IV Q24H [facility] Last Admin: 10/26/18 09:08 Dose: 200 mls/hr Nitroglycerin (Nitrostat) 0.4 mg SL Q5M PRN PRN Reason: Chest Pain Ondansetron HCl (Zofran) 4 mg IV Q6H PRN PRN Reason: Nausea/Vomiting Pantoprazole Sodium (Protonix) 40 mg PO BID [facility] Last Admin: 10/26/18 09:14 Dose: 40 mg Mometasone Furoate [ Asmanex 220 Mcg] Pt's Own Med 0 each INH BID [facility] Last Admin: 10/26/18 09:00 Dose: 1 each Polyethylene Glycol (Miralax) 17 gm PO DAILY PRN PRN Reason: Constipation Last Admin: 10/24/18 21:52 Dose: 17 gm Potassium Chloride (Klor-Con 10) 10 meq PO DAILY [facility] Last Admin: 10/26/18 09:15 Dose: 10 meq Rosuvastatin Calcium (Crestor) 20 mg PO BEDTIME [facility] Last Admin: 10/25/18 21:08 Dose: 20 mg Saccharomyces Boulardii (Florastor) 250 mg PO DAILY [facility] Last Admin: 10/26/18 09:12 Dose: 250 mg Senna/Docusate Sodium (Senna Plus) 1 tab PO BID PRN PRN Reason: Constipation Sertraline HCl (Zoloft) 50 mg PO DAILY [facility] Last Admin: 10/26/18 09:14 Dose: 50 mg Temazepam (Restoril) 7.5 mg PO BEDTIME PRN PRN Reason: Sleep Discontinued Medications Albuterol (Proventil Hfa) 0 gm INH BID PRN PRN Reason: Shortness of Breath Albuterol/Ipratropium (Duoneb 3.0-0.5 Mg/3 Ml) 3 ml INH DAILY [facility] Albuterol/Ipratropium (Duoneb 3.0-0.5 Mg/3 Ml) 3 ml INH BIDRT [facility] Last Admin: 10/24/18 06:13 Dose: 3 ml Albuterol/Ipratropium (Duoneb 3.0-0.5 Mg/3 Ml) 3 ml INH BIDRT [facility] Last Admin: 10/25/18 21:54 Dose: Not Given Allopurinol (Zyloprim) 300 mg PO DAILY [facility] Last Admin: 10/24/18 10:31 Dose: 300 mg Apixaban (Eliquis) 10 mg PO BID [facility] Stop: 10/24/18 22:00 Last Admin: 10/23/18 22:04 Dose: 10 mg Apixaban (Eliquis) 5 mg PO BID [facility] Apixaban (Eliquis) 5 mg PO BID [facility] Apixaban (Eliquis) 10 mg PO BID [facility] Stop: 10/25/18 23:00 Last Admin: 10/25/18 21:08 Dose: 10 mg Cholecalciferol (Vitamin D3) 25 mcg PO DAILY [facility] Heparin Sodium (Porcine) (Heparin Sodium) 0 units IVPUSH .BOLUS ONE; Protocol Stop: 10/23/18 21:53 Last Admin: 10/24/18 04:51 Dose: Not Given Heparin Sodium (Porcine) (Heparin Sodium) 1,000 units IVPUSH ONETIME ONE Stop: 10/24/18 21:32 Last Admin: 10/24/18 21:53 Dose: 1,000 units Heparin Sodium (Porcine) (Heparin Sodium) 0 units IVPUSH .BOLUS ONE; Protocol Stop: 10/25/18 02:52 Last Admin: 10/25/18 03:08 Dose: Not Given Ceftriaxone Sodium 1 gm/ (Sodium Chloride) 100 mls @ 200 mls/hr IV ONETIME ONE Stop: 10/23/18 13:16 Last Admin: 10/23/18 13:13 Dose: 200 mls/hr Heparin Sodium/Dextrose (Heparin 25,000 Units In D5w 500 Ml) 25,000 units in 500 mls @ 15.966 mls/hr IV TITRATE [facility]; Protocol Stop: 10/24/18 23:00 Last Titration: 10/24/18 21:58 Dose: 10.02 units/kg/hr, 16 mls/hr Magnesium Sulfate 4 gm/ Premix 50 mls @ 12.5 mls/hr IV ONETIME ONE Stop: 10/24/18 13:19 Last Admin: 10/24/18 10:59 Dose: 12.5 mls/hr Heparin Sodium/Dextrose (Heparin 25,000 Units In D5w 500 Ml) 25,000 units in 500 mls @ 16.021 mls/hr IV TITRATE [facility]; Protocol Last Admin: 10/25/18 03:24 Dose: 10 units/kg/hr, 16.021 mls/hr Non-Formulary Medication (Furosemide [Furosemide]) 40 mg PO DAILY [facility] Non-Formulary Medication (Atorvastatin Calcium [Atorvastatin Calcium]) 80 mg PO BEDTIME [facility] Pantoprazole Sodium (Protonix) 40 mg PO BID [facility] Last Admin: 10/24/18 10:31 Dose: 40 mg Potassium Chloride (Klor-Con M20) 10 meq PO DAILY [facility] Last Admin: 10/24/18 10:32 Dose: 10 meq Potassium Chloride (Klor-Con 10) 10 meq PO DAILY [facility] Rosuvastatin Calcium (Crestor) 40 mg PO DAILY [facility] Sertraline HCl (Zoloft) 50 mg PO DAILY [facility] Last Admin: 10/24/18 10:31 Dose: 50 mg - Exam General: Reports: Alert, Oriented HEENT: Reports: Pupils Equal, EOMI, Mucous Membr. Moist/[facility] Lungs: Reports: Clear to Auscultation, Normal Respiratory Effort Cardiovascular: Reports: Regular Rate, Regular Rhythm GI/Abdominal Exam: Normal Bowel Sounds, Soft, Non-Tender Back Exam: Reports: Normal Inspection Extremities: Normal Inspection, Non-Tender, No Pedal Edema, Normal Capillary Refill Skin: Reports: Warm, Dry, Intact Neurological: Reports: No New Focal Deficit Psy/Mental Status: Reports: Alert, Normal Affect, Normal Mood <Tico Merlos T - Last Filed: 10/26/18 20:32> Discharge Summary - Referral to Home Health Primary Care Physician: Shell Arambula MD - Patient Summary/Data Consults: Consultations 10/23/18 14:03 Consult to Case Management/Guideman [CONS] Routine OT Evaluation and Treatment [CONS] Routine PT Evaluation and Treatment [CONS] Routine Hospital Course: Patient was essentially admitted for presumptive urinary tract infection associated with recent catheter use during her recent hospitalization in [place]. She was treated with intravenous antibiotic upon admission to the floor and she seemed to have improved with the regimen provided even though her urine came back negative for organismal growth. Her hospital course was uncomplicated but she had NSTEMI during her short stay with us. However she was treated appropriately and [facility] off Hep[facility]p. Patient was stable upon discharge and was advised to continue to take her ASA and Statin. She was further advised to follow up with her PCP in 1 week after discharge. The patient was seen and examined at bedside in concert with the medical student. The discharge assessment and plans were discussed and agreed upon with me. - Patient Data Vitals - Most Recent: Last Vital Signs Temp 36.5 C 10/26/18 13:08 Pulse 79 10/26/18 13:08 Resp 18 10/26/18 13:08 BP 119/62 10/26/18 13:08 Pulse Ox 96 10/26/18 13:08 I&O - Last 24 hours: Intake & Output 10/26/18 10/26/18 10/26/18 06:59 14:59 22:59 Intake Total 600 980 60 Output Total 1350 1200 Balance -750 -220 60 Lab Results - Last 24 hrs: Laboratory Results - last 24 hr 10/26/18 10/26/18 Range/Units 05:15 05:15 WBC 8.68 (3.98-10.04) K/mm3 RBC 3.63 L (3.98-5.22) M/mm3 Hgb 10.3 L (11.2-15.7) gm/dl Hct 33.0 L (34.1-44.9) % MCV 90.9 (79.4-94.8) fl MCH 28.4 (25.6-32.2) pg MCHC 31.2 L (32.2-35.5) g/dl RDW Std Deviation 53.5 H (36.4-46.3) fL Plt Count 279 (182-369) K/mm3 MPV 11.4 (9.4-12.3) fl Neut % (Auto) 59.2 (34.0-71.1) % Lymph % (Auto) 24.2 (19.3-51.7) % Curry % (Auto) 13.8 H (4.7-12.5) % Eos % (Auto) 1.6 (0.7-5.8) Baso % (Auto) 0.5 (0.1-1.2) % Neut # (Auto) 5.14 (1.56-6.13) K/mm3 Lymph # (Auto) 2.10 (1.18-3.74) K/mm3 Curry # (Auto) 1.20 H (0.24-0.36) K/mm3 Eos # (Auto) 0.14 (0.04-0.36) K/mm3 Baso # (Auto) 0.04 (0.01-0.08) K/mm3 Sodium 138 (136-145) mEq/L Potassium 3.9 (3.5-5.1) mEq/L Chloride 101 (98-107) mEq/L Carbon Dioxide 30 (21-32) mEq/L Anion Gap 10.9 (5-15) BUN 26 H (7-18) mg/dL Creatinine 1.4 H (0.55-1.02) mg/dL Est Cr Clr Drug Dosing 30.28 mL/min Estimated GFR (MDRD) 36 (>60) mL/min BUN/Creatinine Ratio 18.6 H (14-18) Glucose 127 H (83-115) mg/dL Calcium 10.3 H (8.5-10.1) mg/dL C-Reactive Protein 4.6 H* (<1.0) mg/dL Med Orders - Current: Current Medications Discontinued Medications Acetaminophen (Tylenol) 650 mg PO Q4H PRN PRN Reason: Pain (Mild 1-3)/fever Hydrocodone Bitart/Acetaminophen (Hood 325-5 Mg) 1 tab PO Q4H PRN PRN Reason: Pain (moderate 4-6) Albuterol (Proventil Hfa) 0 gm INH BID PRN PRN Reason: Shortness of Breath Albuterol (Proventil Hfa) 0 gm INH BID PRN PRN Reason: Shortness of Breath Albuterol/Ipratropium (Duoneb 3.0-0.5 Mg/3 Ml) 3 ml NEB Q4H PRN PRN Reason: Shortness Of Breath/wheezing Albuterol/Ipratropium (Duoneb 3.0-0.5 Mg/3 Ml) 3 ml INH DAILY [facility] Albuterol/Ipratropium (Duoneb 3.0-0.5 Mg/3 Ml) 3 ml INH BIDRT [facility] Last Admin: 10/24/18 06:13 Dose: 3 ml Albuterol/Ipratropium (Duoneb 3.0-0.5 Mg/3 Ml) 3 ml INH BIDRT [facility] Last Admin: 10/25/18 21:54 Dose: Not Given Albuterol/Ipratropium (Duoneb 3.0-0.5 Mg/3 Ml) 3 ml INH BID [facility] Last Admin: 10/26/18 08:54 Dose: 3 ml Allopurinol (Zyloprim) 300 mg PO DAILY [facility] Last Admin: 10/24/18 10:31 Dose: 300 mg Allopurinol (Zyloprim) 300 mg PO DAILY [facility] Last Admin: 10/26/18 09:15 Dose: 300 mg Apixaban (Eliquis) 10 mg PO BID [facility] Stop: 10/24/18 22:00 Last Admin: 10/23/18 22:04 Dose: 10 mg Apixaban (Eliquis) 5 mg PO BID [facility] Apixaban (Eliquis) 5 mg PO BID [facility] Apixaban (Eliquis) 10 mg PO BID [facility] Stop: 10/25/18 23:00 Last Admin: 10/25/18 21:08 Dose: 10 mg Apixaban (Eliquis) 5 mg PO BID [facility] Last Admin: 10/26/18 09:15 Dose: 5 mg Aspirin (Halfprin) 81 mg PO DAILY [facility] Last Admin: 10/26/18 09:13 Dose: 81 mg Bisacodyl (Dulcolax) 5 mg PO DAILY PRN PRN Reason: Constipation Last Admin: 10/25/18 11:14 Dose: 5 mg Cholecalciferol (Vitamin D3) 25 mcg PO DAILY [facility] Cholecalciferol (Vitamin D3) 25 mcg PO DAILY [facility] Dicyclomine HCl (Bentyl) 20 mg PO QID [facility] Last Admin: 10/26/18 13:05 Dose: 20 mg Docusate Sodium (Colace) 100 mg PO BID PRN PRN Reason: Constipation Docusate Sodium (Colace) 100 mg PO BID [facility] Last Admin: 10/26/18 09:14 Dose: Not Given Furosemide (Lasix) 40 mg PO DAILY [facility] Last Admin: 10/26/18 09:13 Dose: 40 mg Heparin Sodium (Porcine) (Heparin Sodium) 0 units IVPUSH .BOLUS ONE; Protocol Stop: 10/23/18 21:53 Last Admin: 10/24/18 04:51 Dose: Not Given Heparin Sodium (Porcine) (Heparin Sodium) 1,000 units IVPUSH ONETIME ONE Stop: 10/24/18 21:32 Last Admin: 10/24/18 21:53 Dose: 1,000 units Heparin Sodium (Porcine) (Heparin Sodium) 0 units IVPUSH .BOLUS ONE; Protocol Stop: 10/25/18 02:52 Last Admin: 10/25/18 03:08 Dose: Not Given Hydromorphone HCl (Dilaudid) 0.25 mg IVPUSH Q2H PRN PRN Reason: Pain (severe 7-10) Ceftriaxone Sodium 1 gm/ (Sodium Chloride) 100 mls @ 200 mls/hr IV ONETIME [facility] Stop: 10/23/18 13:16 Last Admin: 10/23/18 13:13 Dose: 200 mls/hr Promethazine HCl 6.25 mg/ (Sodium Chloride) 50.25 mls @ 100 mls/hr IV Q6H PRN PRN Reason: Nausea/Vomiting Ceftriaxone Sodium 1 gm/ (Sodium Chloride) 100 mls @ 200 mls/hr IV Q24H [facility] Last Admin: 10/26/18 09:08 Dose: 200 mls/hr Heparin Sodium/Dextrose (Heparin 25,000 Units In D5w 500 Ml) 25,000 units in 500 mls @ 15.966 mls/hr IV TITRATE [facility]; Protocol Stop: 10/24/18 23:00 Last Titration: 10/24/18 21:58 Dose: 10.02 units/kg/hr, 16 mls/hr Magnesium Sulfate 4 gm/ Premix 50 mls @ 12.5 mls/hr IV ONETIME ONE Stop: 10/24/18 13:19 Last Admin: 10/24/18 10:59 Dose: 12.5 mls/hr Heparin Sodium/Dextrose (Heparin 25,000 Units In D5w 500 Ml) 25,000 units in 500 mls @ 16.021 mls/hr IV TITRATE [facility]; Protocol Last Admin: 10/25/18 03:24 Dose: 10 units/kg/hr, 16.021 mls/hr Nitroglycerin (Nitrostat) 0.4 mg SL Q5M PRN PRN Reason: Chest Pain Non-Formulary Medication (Furosemide [Furosemide]) 40 mg PO DAILY [facility] Non-Formulary Medication (Atorvastatin Calcium [Atorvastatin Calcium]) 80 mg PO BEDTIME [facility] Ondansetron HCl (Zofran) 4 mg IV Q6H PRN PRN Reason: Nausea/Vomiting Pantoprazole Sodium (Protonix) 40 mg PO BID [facility] Last Admin: 10/24/18 10:31 Dose: 40 mg Pantoprazole Sodium (Protonix) 40 mg PO BID [facility] Last Admin: 10/26/18 09:14 Dose: 40 mg Mometasone Furoate [ Asmanex 220 Mcg] Pt's Own Med 0 each INH BID [facility] Last Admin: 10/26/18 09:00 Dose: 1 each Polyethylene Glycol (Miralax) 17 gm PO DAILY PRN PRN Reason: Constipation Last Admin: 10/24/18 21:52 Dose: 17 gm Potassium Chloride (Klor-Con M20) 10 meq PO DAILY [facility] Last Admin: 10/24/18 10:32 Dose: 10 meq Potassium Chloride (Klor-Con 10) 10 meq PO DAILY [facility] Potassium Chloride (Klor-Con 10) 10 meq PO DAILY [facility] Last Admin: 10/26/18 09:15 Dose: 10 meq Rosuvastatin Calcium (Crestor) 40 mg PO DAILY [facility] Rosuvastatin Calcium (Crestor) 20 mg PO BEDTIME [facility] Last Admin: 10/25/18 21:08 Dose: 20 mg Saccharomyces Boulardii (Florastor) 250 mg PO DAILY [facility] Last Admin: 10/26/18 09:12 Dose: 250 mg Senna/Docusate Sodium (Senna Plus) 1 tab PO BID PRN PRN Reason: Constipation Sertraline HCl (Zoloft) 50 mg PO DAILY [facility] Last Admin: 10/24/18 10:31 Dose: 50 mg Sertraline HCl (Zoloft) 50 mg PO DAILY [facility] Last Admin: 10/26/18 09:14 Dose: 50 mg Temazepam (Restoril) 7.5 mg PO BEDTIME PRN PRN Reason: Sleep
[2018-10-26 14:48] VITALS: BP 119/62
[2018-10-28] MEDS ORDERED: Cholecalciferol (Vitamin D3) 25 MCG Tab PO SCH (09:00)
== END 2018-10-26 14:30 | disposition home or self-care (01) | DRG 698 ==
LOC: JD.ED 10:10 → JD.MS 13:02 → OBSVTOIN 10-24 14:15 → JD.MS 10-24 14:19
PROVIDERS: ADMIT Internal Medicine; ATTEND Internal Medicine
DX: T83.518A Infection and inflammatory reaction due to other urinary catheter, initial encounter (principal); N30.00 Acute cystitis without hematuria; I21.4 Non-ST elevation (NSTEMI) myocardial infarction; R50.9 Fever, unspecified; E83.52 Hypercalcemia; J44.9 Chronic obstructive pulmonary disease, unspecified; I13.0 Hypertensive heart and chronic kidney disease with heart failure and stage 1 through stage 4 chronic kidney disease, or unspecified chronic kidney disease; E11.22 Type 2 diabetes mellitus with diabetic chronic kidney disease; N18.9 Chronic kidney disease, unspecified; I50.9 Heart failure, unspecified; E66.9 Obesity, unspecified; M10.9 Gout, unspecified; E78.00 Pure hypercholesterolemia, unspecified; I25.10 Atherosclerotic heart disease of native coronary artery without angina pectoris; K21.9 Gastro-esophageal reflux disease without esophagitis; F41.9 Anxiety disorder, unspecified; F32.9 Major depressive disorder, single episode, unspecified; Z79.01 Long term (current) use of anticoagulants; Z79.82 Long term (current) use of aspirin; Z79.899 Other long term (current) drug therapy; Z95.5 Presence of coronary angioplasty implant and graft; Z86.718 Personal history of other venous thrombosis and embolism; Z87.01 Personal history of pneumonia (recurrent); Z90.710 Acquired absence of both cervix and uterus; Z87.891 Personal history of nicotine dependence; Z68.30 Body mass index [BMI] 30.0-30.9, adult
CPT/HCPCS: 36415 ×2; 71045; 80048; 80053; 80061; 81001; 82306; 82553 ×3; 83735; 84484 ×4; 85025 ×2; 85049; 85730 ×3; 86140 ×2; 87086; 93005 ×3; 94640 ×4; 96365; 96366; 96367; 96368; 96376; 99285; A9270 ×10; G0378 ×2; J0696 ×2; J1644; J3475; J7030 ×2; 93010; 94760; 94761; 96374; 97110-GP; 97116-GP; 97162-GP; 97165-GO; 97530-GO; 99283; J7620-GY

== ENCOUNTER 2019-01-29 16:29 | Emergency (ER) | payer MEDICARE, MEDICAID ==
[2019-01-29 16:32] VITALS: BP 189/90; PULSE 58
[2019-01-29] MEDS ORDERED: Ketorolac 30 MG/ML SDV IM ONE (16:37)
[2019-01-29] MEDS ORDERED: HYDROmorphone 0.5 MG/0.5 ML Syringe IM ONE (16:38)
--- NOTE | 2019-01-29 17:39 | EDM.PDOC ---
ED HPI GENERAL MEDICAL PROBLEM - General Chief Complaint: Back Pain or Injury Stated Complaint: [facility] Time Seen by Provider: 01/29/19 16:31 Source of Information: Reports: Patient, EMS History Limitations: Reports: No Limitations - History of Present Illness INITIAL COMMENTS - FREE TEXT/NARRATIVE: The patient presents by [facility] for left low back pain and sciatica. She has a history of this and she is going to pain management within the next couple of weeks. She has more pain this past 4 days. She did not fall , lift or twist. She has no numbness or weakness. She had an MRI of her back. She has no fever, chills, cough, chest pain, shortness of breath, abdominal pain, nausea, vomiting or dysuria. Onset: Gradual Duration: Day(s): (4) Location: Reports: Back, Lower Extremity, Left Quality: Reports: Sharp Severity: Severe Improves with: Reports: Immobilization Worsens with: Reports: Movement Context: Denies: Trauma Associated Symptoms: Reports: No Other Symptoms Left Back Pain Score (Numeric/FACES): 9 - Related Data Allergies Allergy/AdvReac Type Severity Reaction Status Date / Time Penicillins Allergy Swelling Verified 10/23/18 10:22 Home Meds: Home Meds Albuterol Sulfate [Proair Respiclick] 2 puff INH BID PRN 10/16/18 [History] Albuterol/Ipratropium [DuoNeb 3.0-0.5 MG/3 ML] 3 ml INH BID 10/16/18 [History] Aspirin 81 mg PO DAILY 10/16/18 [History] Dicyclomine [Bentyl] 20 mg PO QID 10/16/18 [History] Docusate Sodium 100 mg PO BID 10/16/18 [History] Furosemide 40 mg PO DAILY 10/16/18 [History] Mometasone Furoate [Asmanex 220 MCG] 1 puff INH BID 10/16/18 [History] Nitroglycerin 0.4 mg PO Q5M PRN MDD 3 doses 10/16/18 [History] Pantoprazole [ProTONIX] 40 mg PO BID 10/16/18 [History] Potassium Chloride 10 meq PO DAILY 10/16/18 [History] Sertraline [Zoloft] 50 mg PO DAILY 10/16/18 [History] allopurinoL [Zyloprim] 300 mg PO DAILY 10/16/18 [History] Apixaban [Eliquis] 10 mg PO BID 10/23/18 [History] atorvaSTATin Calcium [Atorvastatin Calcium] 80 mg PO BEDTIME 10/25/18 [History] Cholecalciferol (Vitamin D3) [Vitamin D3] 1,000 mg PO Q48H #0 10/26/18 [Rx] Hydrocodone/Acetaminophen [Hydrocodon-Acetaminophen 5-325] 1 - 2 each PO Q6HR PRN #20 tablet 01/29/19 [Rx] Past Medical History HEENT History: Reports: Impaired Vision Other HEENT History: wears eyeglasses Cardiovascular History: Reports: Angina, CAD, Heart Failure, High Cholesterol, Hypertension, Stents Other Cardiovascular History: carotid artery stenosis--has had left-sided endarterectomy with no previous stroke. This was done about 4-5 years ago. DVT 2018 Respiratory History: Reports: COPD, Pneumonia, Recurrent Other Respiratory History: Has oxygen at home at night - 2 L per [place]. Gastrointestinal History: Reports: GERD, Irritable Bowel Syndrome Genitourinary History: Reports: Chronic Renal Insuffiency Other Genitourinary History: renal disease MGMT SPECIALIST History: Reports: Other MGMT SPECIALIST History: hysterectomy Musculoskeletal History: Reports: Arthritis, Gout Other Musculoskeletal History: sciatica Neurological History: Reports: None Psychiatric History: Reports: Anxiety, Depression Endocrine/Metabolic History: Reports: Diabetes, Type II, Obesity/BMI 30+ Hematologic History: Reports: None Immunologic History: Reports: None Oncologic (Cancer) History: Reports: None Dermatologic History: Reports: Eczema Other Dermatologic History: eczema - Infectious Disease History Infectious Disease History: Reports: Influenza - Past Surgical History Head Surgeries/Procedures: Reports: None HEENT Surgical History: Reports: Cataract Surgery Cardiovascular Surgical History: Reports: Coronary Artery Stent, Percutaneous Transluminal Angioplasty GI Surgical History: Reports: Colonoscopy, Hernia Repair/Other Musculoskeletal Surgical History: Reports: Carpal Tunnel Social & Family History - Family History Family Medical History: Noncontributory Oncologic: Reports: Bone, Lung - Tobacco Use Smoking Status *Q: Former Smoker Used Tobacco, but Quit: Yes Month/Year Tobacco Last Used: 2000 - Caffeine Use Caffeine Use: Reports: Coffee Other Caffeine Use: cup of coffee every morning - Recreational Drug Use Recreational Drug Use: No - Living Situation & Occupation Living situation: Reports: , Alone Occupation: Retired ED ROS GENERAL - Review of Systems Review Of Systems: See Below Constitutional: Reports: No Symptoms HEENT: Reports: No Symptoms Respiratory: Reports: No Symptoms Cardiovascular: Reports: No Symptoms Endocrine: Reports: No Symptoms GI/Abdominal: Reports: No Symptoms : Reports: No Symptoms Musculoskeletal: Reports: Back Pain (left back pain down her left leg) ED EXAM,LOWER BACK PAIN/INJURY - Physical Exam Exam: See Below Exam Limited By: No Limitations General Appearance: Alert, No Apparent Distress Ears: Normal External Exam Nose: Normal Inspection Head: Atraumatic, Normocephalic Neck: Normal Inspection Respiratory/Chest: No Respiratory Distress, Lungs Clear, Normal Breath Sounds Cardiovascular: Regular Rate, Rhythm, No Edema, No Murmur GI/Abdominal: Soft, Non-Tender, No Organomegaly, No Mass Back Exam: Other (Pain upon palpation to the left lower back that radiates to the left leg.) Course - Vital Signs Last Recorded V/S: Last Vital Signs Temp 98.5 F 01/29/19 16:31 Pulse 58 L 01/29/19 16:31 Resp 24 H 01/29/19 16:31 BP 189/90 H 01/29/19 16:31 Pulse Ox 95 01/29/19 16:31 - Orders/Labs/Meds Meds: Medications Discontinued Medications Generic Name Dose Route Start Last Admin Trade Name Roberto PRN Reason Stop Dose Admin Hydromorphone HCl 0.5 mg 01/29/19 16:38 01/29/19 16:56 Dilaudid IM 01/29/19 16:39 0.5 mg ONETIME ONE Administration Ketorolac Tromethamine 30 mg 01/29/19 16:37 01/29/19 16:55 Toradol IM 01/29/19 16:38 30 mg ONETIME ONE Administration - Re-Assessments/Exams Free Text/Narrative Re-Assessment/Exam: 01/29/19 17:39 I ordered a shot of toradol 30mg IM and dilaudid 0.5mg IM. 01/29/19 18:17 She feels better and she was able to get up and walk. I will get her some hydrocodone for pain and discharge her home. Departure - Departure Time of Disposition: 18:20 Disposition: Home, Self-Care 01 Condition: Good Clinical Impression: Low back pain with sciatica Qualifiers: Chronicity: chronic Back pain laterality: left Sciatica laterality: sciatica of left side Qualified Code(s): M54.42 - Lumbago with sciatica, left side; G89.29 - Other chronic pain - Discharge Information *PRESCRIPTION DRUG MONITORING PROGRAM REVIEWED*: No *COPY OF PRESCRIPTION DRUG MONITORING REPORT IN PATIENT CHRISTOPHE: No Prescriptions: Hydrocodone/Acetaminophen [Hydrocodon-Acetaminophen 5-325] 1 - 2 each PO Q6HR PRN #20 tablet PRN Reason: Pain Referrals: PCP,Unknown [Primary Care Provider] - Forms: ED Department Discharge Additional Instructions: Take some tylenol or motrin for pain. If that does not help, take the hydrocodone 1 to 2 pills every 6 hours as needed for pain. Please return if you are worse. Sepsis Event Note - Evaluation Sepsis Screening Result: No Definite Risk - Focused Exam Vital Signs: Vital Signs Temp Pulse Resp BP Pulse Ox 01/29/19 16:31 98.5 F 58 L 24 H 189/90 H 95 Date Exam was Performed: 01/29/19 Time Exam was Performed: 18:17
== END 2019-01-29 18:37 | disposition home or self-care (01) ==
LOC: JD.ED 16:29
DX: M54.42 Lumbago with sciatica, left side (principal); E78.00 Pure hypercholesterolemia, unspecified; I25.10 Atherosclerotic heart disease of native coronary artery without angina pectoris; J44.9 Chronic obstructive pulmonary disease, unspecified; K21.9 Gastro-esophageal reflux disease without esophagitis; E11.22 Type 2 diabetes mellitus with diabetic chronic kidney disease; I13.0 Hypertensive heart and chronic kidney disease with heart failure and stage 1 through stage 4 chronic kidney disease, or unspecified chronic kidney disease; N18.9 Chronic kidney disease, unspecified; I50.9 Heart failure, unspecified; E66.9 Obesity, unspecified; F32.9 Major depressive disorder, single episode, unspecified; Z95.5 Presence of coronary angioplasty implant and graft; Z68.30 Body mass index [BMI] 30.0-30.9, adult; Z79.899 Other long term (current) drug therapy; Z88.0 Allergy status to penicillin; Z79.51 Long term (current) use of inhaled steroids; Z87.891 Personal history of nicotine dependence; Z79.82 Long term (current) use of aspirin
CPT/HCPCS: 96372; 99283; J1170; J1885

== ENCOUNTER 2019-02-07 18:59 | Emergency (ER) | payer MEDICARE, MEDICAID ==
[2019-02-07 19:14] VITALS: BP 156/80; PULSE 74
--- NOTE | 2019-02-07 20:00 | EDM.PDOC ---
ED HPI GENERAL MEDICAL PROBLEM - General Chief Complaint: Back Pain or Injury Stated Complaint: LOWER BACK PAIN Time Seen by Provider: 02/07/19 19:41 Source of Information: Reports: Patient History Limitations: Reports: No Limitations - History of Present Illness INITIAL COMMENTS - FREE TEXT/NARRATIVE: Patient is a 78-year-old female with history of left low back pain with sciatica I comes and goes. She has a history of herniated disc that would benefit from surgery but the patient refuses due to her age and other chronic disease states. She is scheduled to see pain management on February 19. She was evaluated in the emergency Department 01/29 at 2019 for low back pain with sciatica. Patient states she has used up all the hydrocodone that was provided at that time. She does not use it all time only when the pain came on at night. She currently has no complaints at this time of low back pain or sciatica. She denies any nausea tingling to her legs, incontinence urine or stool, and/or saddle anesthesia. There has been no recent fall and he precipitated worsening symptoms. She uses a walker to ambulate. She denies any CP, abdominal pain, worsening sob, fever, chills, nausea vomiting, and/or dysuria. She is requesting a new prescription for hydrocodone for when she has these intermittent low back pains with sciatica not relieved with [id number] medications. Left Lower Back Pain Score (Numeric/FACES): 7 - Related Data Allergies Allergy/AdvReac Type Severity Reaction Status Date / Time Penicillins Allergy Swelling Verified 02/07/19 19:11 Home Meds: Home Meds Albuterol Sulfate [Proair Respiclick] 2 puff INH BID PRN 10/16/18 [History] Albuterol/Ipratropium [DuoNeb 3.0-0.5 MG/3 ML] 3 ml INH BID 10/16/18 [History] Aspirin 81 mg PO DAILY 10/16/18 [History] Dicyclomine [Bentyl] 20 mg PO QID 10/16/18 [History] Docusate Sodium 100 mg PO BID 10/16/18 [History] Furosemide 40 mg PO DAILY 10/16/18 [History] Mometasone Furoate [Asmanex 220 MCG] 1 puff INH BID 10/16/18 [History] Nitroglycerin 0.4 mg PO Q5M PRN MDD 3 doses 10/16/18 [History] Pantoprazole [ProTONIX] 40 mg PO BID 10/16/18 [History] Potassium Chloride 10 meq PO DAILY 10/16/18 [History] Sertraline [Zoloft] 50 mg PO DAILY 10/16/18 [History] allopurinoL [Zyloprim] 300 mg PO DAILY 10/16/18 [History] Apixaban [Eliquis] 10 mg PO BID 10/23/18 [History] atorvaSTATin Calcium [Atorvastatin Calcium] 80 mg PO BEDTIME 10/25/18 [History] Cholecalciferol (Vitamin D3) [Vitamin D3] 1,000 mg PO Q48H #0 10/26/18 [Rx] Hydrocodone/Acetaminophen [Hydrocodon-Acetaminophen 5-325] 1 - 2 each PO Q6HR PRN #20 tablet 01/29/19 [Rx] Past Medical History HEENT History: Reports: Impaired Vision Other HEENT History: wears eyeglasses Cardiovascular History: Reports: Angina, CAD, Heart Failure, High Cholesterol, Hypertension, Stents Other Cardiovascular History: carotid artery stenosis--has had left-sided endarterectomy with no previous stroke. This was done about 4-5 years ago. DVT 2019 Respiratory History: Reports: COPD, Pneumonia, Recurrent Other Respiratory History: Has oxygen at home at night - 2 L per [place]. Gastrointestinal History: Reports: GERD, Irritable Bowel Syndrome Genitourinary History: Reports: Chronic Renal Insuffiency Other Genitourinary History: renal disease INVESTIGATIVE ANALYST History: Reports: Other INVESTIGATIVE ANALYST History: hysterectomy Musculoskeletal History: Reports: Arthritis, Gout Other Musculoskeletal History: sciatica Neurological History: Reports: None Psychiatric History: Reports: Anxiety, Depression Endocrine/Metabolic History: Reports: Diabetes, Type II, Obesity/BMI 30+ Hematologic History: Reports: None Immunologic History: Reports: None Oncologic (Cancer) History: Reports: None Dermatologic History: Reports: Eczema Other Dermatologic History: eczema - Infectious Disease History Infectious Disease History: Reports: Influenza - Past Surgical History Head Surgeries/Procedures: Reports: None HEENT Surgical History: Reports: Cataract Surgery Cardiovascular Surgical History: Reports: Coronary Artery Stent, Percutaneous Transluminal Angioplasty GI Surgical History: Reports: Colonoscopy, Hernia Repair/Other Musculoskeletal Surgical History: Reports: Carpal Tunnel Social & Family History - Family History Family Medical History: Noncontributory Oncologic: Reports: Bone, Lung - Tobacco Use Smoking Status *Q: Former Smoker Used Tobacco, but Quit: Yes Month/Year Tobacco Last Used: 2004 - Caffeine Use Caffeine Use: Reports: Coffee Other Caffeine Use: cup of coffee every morning - Living Situation & Occupation Living situation: Reports: , Alone Occupation: Retired ED ROS GENERAL - Review of Systems Review Of Systems: Comprehensive ROS is negative, except as noted in HPI. ED EXAM,LOWER BACK PAIN/INJURY - Physical Exam Exam: See Below Exam Limited By: No Limitations General Appearance: Alert, WD/WN, No Apparent Distress Ears: Hearing Grossly Normal Nose: Normal Inspection Throat/Mouth: Normal Inspection, Normal Voice, No Airway Compromise Head: Atraumatic, Normocephalic Neck: Normal Inspection, Supple, Non-Tender, Full Range of Motion Respiratory/Chest: No Respiratory Distress, Lungs Clear, Normal Breath Sounds, No Accessory Muscle Use Cardiovascular: Normal Peripheral Pulses, Regular Rate, Rhythm GI/Abdominal: Normal Bowel Sounds, Soft, Non-Tender, No Organomegaly, No Distention Back Exam: Normal Inspection, Decreased Range of Motion. No: CVA Tenderness (L) , CVA Tenderness (R), Muscle Spasm, Paraspinal Tenderness, Vertebral Tenderness Extremities: Normal Range of Motion, Non-Tender, Pedal Edema (1+) Neurological: Alert, Normal Mood/Affect, Normal Dorsiflexion, CN II-XII Intact, Normal Plantar Flexion, No Motor/Sensory Deficits, Oriented x 3 Psychiatric: Normal Affect, Normal Mood Skin Exam: Warm, Dry, Intact, Normal Color, No Rash Course - Vital Signs Last Recorded V/S: Last Vital Signs Temp 97.4 F 02/07/19 19:11 Pulse 74 02/07/19 19:11 Resp 20 02/07/19 19:11 BP 156/80 H 02/07/19 19:11 Pulse Ox 96 02/07/19 19:11 - Re-Assessments/Exams Free Text/Narrative Re-Assessment/Exam: Review previous ED visit 12?20 ?2018. Patient was provided a course hydrocodone upon discharge. No concerning findings noted on exam. We'll go ahead and facilitate a prescription for hydrocodone to get her by for the next 2 days. I've asked the patient to follow PCP this Tuesday for reevaluation and continued pain therapy. Return precautions were discussed with the patient. She had no further questions or concerns and agreed with plan. Departure - Departure Time of Disposition: 19:56 Disposition: Home, Self-Care 01 Condition: Good Clinical Impression: Low back pain Qualifiers: Chronicity: chronic Back pain laterality: left Sciatica presence: with sciatica Sciatica laterality: sciatica of left side Qualified Code(s): M54.42 - Lumbago with sciatica, left side; G89.29 - Other chronic pain - Discharge Information Instructions: Pain Medicine Instructions, [id number], Heat Therapy, Easy-to- Read, What You Need to Know About Chronic Back Pain, Radicular Pain Referrals: Shell Arambula MD [Primary Care Provider] - Additional Instructions: Please follow up with PCP this coming Tuesday for reevaluation and continued pain management. Keep appointment as scheduled with pain specialist for February 19. Utilize Biofreeze, Tylenol, heat, ice as needed throughout the course of the day. For moderate to severe pain take the Max one tab every 8 hours as needed . Do not take Tylenol and Max together. Refrain from driving while taking the Max. Please return back to the ED if you develop any new or worsening symptoms as discussed. Sepsis Event Note - Evaluation Sepsis Screening Result: No Definite Risk - Focused Exam Vital Signs: Vital Signs Temp Pulse Resp BP Pulse Ox 02/07/19 19:11 97.4 F 74 20 156/80 H 96 Date Exam was Performed: 02/07/19 Time Exam was Performed: 19:54
== END 2019-02-07 20:11 | disposition home or self-care (01) ==
LOC: JD.ED 18:59
DX: M54.42 Lumbago with sciatica, left side (principal); I12.9 Hypertensive chronic kidney disease with stage 1 through stage 4 chronic kidney disease, or unspecified chronic kidney disease; E11.22 Type 2 diabetes mellitus with diabetic chronic kidney disease; I50.9 Heart failure, unspecified; N18.9 Chronic kidney disease, unspecified; Z79.899 Other long term (current) drug therapy; Z87.891 Personal history of nicotine dependence; Z88.0 Allergy status to penicillin
CPT/HCPCS: 99282; 99283

== ENCOUNTER 2019-05-22 13:31 | Emergency (ER) | payer MEDICARE, MEDICAID ==
[2019-05-22 13:49] VITALS: PULSE 74
[2019-05-22] MEDS ORDERED: Acetaminophen/HYDROcodone 325-5 MG Tab PO ONE (13:56)
[2019-05-22] MEDS ORDERED: Furosemide 40 MG Tab PO ONE (13:56)
--- NOTE | 2019-05-22 14:02 | EDM.PDOC ---
ED HPI GENERAL MEDICAL PROBLEM - General Chief Complaint: Back Pain or Injury Stated Complaint: [facility] Time Seen by Provider: 05/22/19 13:36 Source of Information: Reports: Patient, RN Notes Reviewed History Limitations: Reports: No Limitations - History of Present Illness INITIAL COMMENTS - FREE TEXT/NARRATIVE: Patient is a 78-year-old female who is brought in by [facility] for acute lower back pain. Patient notes that she does have chronic issues with low back pain, with left sciatica. Patient states that she is having increased pain due to this again today. She has been seeing a pain specialist, Dr. Brennan in [place], and has been getting steroid shots about every 3 months, but states that it is been 4-month since her last shot due to the coronavirus pandemic, so they have not made her come to the office. Patient states that she normally has pain most of the time, but today was exquisite enough that she could not get up out of her chair. She does have a self reclining chair, but does note that she has some dependent edema on both of her legs. Patient states that she did have her legs up and was trying to elevate them. Patient did not take any Tylenol or ibuprofen, nor did she have any other pain meds at home. She denies any other sick-like symptoms, fever/ chills, cough/shortness of breath/chest pain. Patient states that the pain specialist is thinking about doing back surgery to relieve her pain. Lower Back Pain Score (Numeric/FACES): 8 - Related Data Allergies Allergy/AdvReac Type Severity Reaction Status Date / Time Penicillins Allergy Swelling Verified 05/22/19 13:41 Home Meds: Home Meds Albuterol/Ipratropium [DuoNeb 3.0-0.5 MG/3 ML] 3 ml INH BID 10/16/18 [History] Aspirin 81 mg PO DAILY 10/16/18 [History] Dicyclomine [Bentyl] 20 mg PO QID 10/16/18 [History] Docusate Sodium 100 mg PO BID 10/16/18 [History] Furosemide 40 mg PO DAILY 10/16/18 [History] Nitroglycerin 0.4 mg PO Q5M PRN MDD 3 doses 10/16/18 [History] Pantoprazole [ProTONIX] 40 mg PO BID 10/16/18 [History] Potassium Chloride 10 meq PO DAILY 10/16/18 [History] Sertraline [Zoloft] 50 mg PO DAILY 10/16/18 [History] allopurinoL [Zyloprim] 300 mg PO DAILY 10/16/18 [History] atorvaSTATin Calcium [Atorvastatin Calcium] 80 mg PO BEDTIME 10/25/18 [History] Cholecalciferol (Vitamin D3) [Vitamin D3] 1,000 mg PO Q48H #0 10/26/18 [Rx] Hydrocodone/Acetaminophen [Lorcet Hd 10-325 mg Tablet] 1 each PO Q6H PRN #12 tablet 05/22/19 [Rx] Past Medical History HEENT History: Reports: Impaired Vision Other HEENT History: wears eyeglasses Cardiovascular History: Reports: Angina, CAD, Heart Failure, High Cholesterol, Hypertension, Stents Other Cardiovascular History: carotid artery stenosis--has had left-sided endarterectomy with no previous stroke. This was done about 4-5 years ago. DVT 2018 Respiratory History: Reports: COPD, Pneumonia, Recurrent Other Respiratory History: Has oxygen at home at night - 2 L per NC. 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: Reports: Other STATE HISTORICAL SOCIETY DIRECTOR History: hysterectomy Musculoskeletal History: Reports: Arthritis, Back Pain, Chronic, Gout Other Musculoskeletal History: Left sided sciatica Psychiatric History: Reports: Anxiety, Depression Endocrine/Metabolic History: Reports: Diabetes, Type II, Obesity/BMI 30+ Dermatologic History: Reports: Eczema - Infectious Disease History Infectious Disease History: Reports: Influenza - Past Surgical History HEENT Surgical History: Reports: Cataract Surgery Cardiovascular Surgical History: Reports: Coronary Artery Stent, Percutaneous Transluminal Angioplasty GI Surgical History: Reports: Colonoscopy, Hernia Repair/Other Female Surgical History: Reports: Hysterectomy Musculoskeletal Surgical History: Reports: Carpal Tunnel Social & Family History - Family History Family Medical History: Noncontributory Oncologic: Reports: Bone, Lung - Tobacco Use Smoking Status *Q: Never Smoker Second Hand Smoke Exposure: No - Caffeine Use Caffeine Use: Reports: Coffee Other Caffeine Use: cup of coffee every morning - Recreational Drug Use Recreational Drug Use: No - Living Situation & Occupation Living situation: Reports: , Alone Occupation: Retired ED ROS GENERAL - Review of Systems Review Of Systems: See Below Constitutional: Denies: Fever, Chills Respiratory: Denies: Shortness of Breath, Cough Cardiovascular: Denies: Chest Pain GI/Abdominal: Denies: Abdominal Pain, Constipation, Diarrhea, Nausea, Vomiting : Denies: Dysuria, Frequency, Urgency Musculoskeletal: Reports: Back Pain (Left lower back pain with radiation to left leg) Neurological: Reports: Difficulty Walking (d/t pain in back). Denies: Numbness , Tingling ED EXAM,LOWER BACK PAIN/INJURY - Physical Exam Exam: See Below Exam Limited By: No Limitations General Appearance: Alert, WD/WN, No Apparent Distress Eye Exam: Bilateral Eye: EOMI, Normal Inspection, PERRL Ears: Normal External Exam Nose: Normal Inspection Throat/Mouth: Normal Inspection, Normal Lips, Normal Teeth, Normal Gums, Normal Oropharynx, Normal Voice, No Airway Compromise Head: Atraumatic, Normocephalic Neck: Normal Inspection Respiratory/Chest: No Respiratory Distress, Lungs Clear, Normal Breath Sounds, No Accessory Muscle Use, Chest Non-Tender Cardiovascular: Normal Peripheral Pulses, Regular Rate, Rhythm, No Murmur GI/Abdominal: Normal Bowel Sounds, Soft, Non-Tender, No Distention, No Mass Extremities: Normal Inspection, Normal Range of Motion, Pedal Edema (2+ pitting to bilateral extremities) Neurological: Alert, Normal Mood/Affect, Normal Dorsiflexion, Normal Plantar Flexion, No Motor/Sensory Deficits, Oriented x 3, Straight Leg Raise (L). No: Straight Leg Raise (R), Saddle Anesthesia Psychiatric: Normal Affect, Normal Mood Skin Exam: Warm, Dry, Intact, Normal Color, No Rash Course - Vital Signs Last Recorded V/S: Last Vital Signs Temp 98.9 F 05/22/19 13:35 Pulse 74 05/22/19 13:35 Resp 20 05/22/19 13:35 BP 156/77 H 05/22/19 13:35 Pulse Ox 94 L 05/22/19 13:35 - Orders/Labs/Meds Meds: Medications Discontinued Medications Generic Name Dose Route Start Last Admin Trade Name Freq PRN Reason Stop Dose Admin Hydrocodone Bitart/Acetaminophen 1 tab 05/22/19 13:56 05/22/19 14:07 [place] 325-5 Mg PO 05/22/19 13:57 1 tab ONETIME ONE Administration Dexamethasone 10 mg 05/22/19 14:57 Dexamethasone IM 05/22/19 14:58 ONETIME ONE Furosemide 40 mg 05/22/19 13:56 05/22/19 14:07 Lasix PO 05/22/19 13:57 40 mg ONETIME ONE Administration - Re-Assessments/Exams Free Text/Narrative Re-Assessment/Exam: 05/22/19 14:03 Patient presents to the ED for her lower back pain. She does have bilateral dependent edema by clinical exam. I did offer to run some labs for further evaluation, but the patient denied this at this time, will try 40 mg of Lasix orally to see if this does not help relieve some of the swelling. Patient does have an extensive cardiac history, but does not want any further work-up done at today's visit, and states that the back pain is what brought her here and that is what she like focused on. At this time I did order 1 tablet of hydrocodone/acetaminophen 5/325, as this does look like it is provided her pain relief in the past. 05/22/19 15:09 Pt has noted some pain relief, I did order 10mg IM dexamethasone for the sciatic component of her pain. Will provide her with a few tablets of pain medications and have her follow up with her regular provider for continuation of this medication. Pt understands this and will get an appointment. Departure - Departure Time of Disposition: 15:10 Disposition: Home, Self-Care 01 Condition: Good Clinical Impression: Low back pain Qualifiers: Chronicity: chronic Back pain laterality: left Sciatica presence: with sciatica Sciatica laterality: sciatica of left side Qualified Code(s): M54.42 - Lumbago with sciatica, left side; G89.29 - Other chronic pain - Discharge Information *PRESCRIPTION DRUG MONITORING PROGRAM REVIEWED*: Yes *COPY OF PRESCRIPTION DRUG MONITORING REPORT IN PATIENT CHRISTOPHE: No Prescriptions: Hydrocodone/Acetaminophen [Lorcet Hd 10-325 mg Tablet] 1 each PO Q6H PRN #12 tablet PRN Reason: Pain Instructions: Chronic Back Pain, [id number], Pain Medicine Instructions, Easy -to-Read Forms: ED Department Discharge Additional Instructions: You have been evaluated in the ED for your lower back with left sided sciatica. You were given hydrocodone in the ER, and 10 mg IM dexamethasone for pain relief. This did seem to provide pretty good pain relief. Please use ice as tolerated to the affected area. Recommend that as much as possible, you elevate your legs to alleviate the swelling, and apply Woo wraps as tolerated to help provide further compression. You may take Tylenol 500 mg or ibuprofen 600mg q6 hrs for pain relief. Please do so until you have a tolerable level of pain with activity. Do not exceed 4000mg Tylenol or 3200mg ibuprofen in a 24 hour time period. You were given a prescription for a strong pain medication, hydrocodone/ acetaminophen 10/325 mg, please take 1 tab every 6 hours as needed for pain not relieved by Tylenol or ibuprofen alone. Please note this medication does contain Tylenol in it, so do not take more than 4000 mg in a 24-hour time span. These medications can be addictive, so please take as few as possible to achieve adequate pain control. These meds can also be quite constipating, recommend that you increase your oral fluid intake and take a stool softener like MiraLAX while taking these medications. Do not drive while taking this medication. You will need to call your regular provider, Dr. Payne, for continuation of this medication as it is not appropriate for the ER to be providing chronic pain control. Please return to ED if your symptoms should change or worsen. Sepsis Event Note - Evaluation Sepsis Screening Result: No Definite Risk - Focused Exam Vital Signs: Vital Signs Temp Pulse Resp BP Pulse Ox 05/22/19 13:35 98.9 F 74 20 156/77 H 94 L Date Exam was Performed: 05/22/19 Time Exam was Performed: 15:09
[2019-05-22] MEDS ORDERED: Dexamethasone 10 MG/ML SDV IM ONE (14:57)
[2019-05-22 16:16] VITALS: BP 155/72
== END 2019-05-22 16:30 | disposition home or self-care (01) ==
LOC: SUPCPDRO 13:31 → JD.ED 13:31
DX: M54.42 Lumbago with sciatica, left side (principal); I25.10 Atherosclerotic heart disease of native coronary artery without angina pectoris; E78.00 Pure hypercholesterolemia, unspecified; I11.0 Hypertensive heart disease with heart failure; I50.9 Heart failure, unspecified; J44.9 Chronic obstructive pulmonary disease, unspecified; K21.9 Gastro-esophageal reflux disease without esophagitis; M10.9 Gout, unspecified; F41.9 Anxiety disorder, unspecified; E11.9 Type 2 diabetes mellitus without complications; F32.9 Major depressive disorder, single episode, unspecified; Z99.81 Dependence on supplemental oxygen; E66.9 Obesity, unspecified; Z68.28 Body mass index [BMI] 28.0-28.9, adult; Z88.0 Allergy status to penicillin; Z79.82 Long term (current) use of aspirin; Z79.899 Other long term (current) drug therapy
CPT/HCPCS: 96372; 99283; A9270; J1100

== ENCOUNTER 2019-11-21 10:40 | Day surgery (SDC) | payer MEDICARE, MEDICAID ==
[~2019-11-21 10:40] MED LIST changes: -Sodium Chloride 0.9% 1,000 ML IV SCH
--- NOTE | 2019-11-21 11:55 | PCM.PREANE ---
Preanesthetic Assessment - Procedure Proposed Procedure: Colonoscopy - Anesthesia/Transfusion/Family Hx Anesthesia History: Prior Anesthesia Without Reaction Family History of Anesthesia Reaction: No Transfusion History: Prior Transfusion Without Reaction Intubation History: Unknown - Review of Systems General: No Symptoms, Weakness (residual left leg after CVA), Fatigue Pulmonary: No Symptoms (O2 used at night, Quit smokiing 1999 1ppd times 45 years,COPD-uses rescue inhaler once per day), Wheezing, Cough Cardiovascular: No Symptoms (HTN, CAD, history of trigeminy,CHF, elevated cholesterol,History of coronary angioplasty stent times 3 2013, last used nitroglycerin more than 2 years ago), Palpitations (trigemniny), Dyspnea on Exertion, Edema (left leg from prior CVA) Gastrointestinal: No Symptoms (GERD-controlled), Constipation (IBS with constipation) Neurological: No Symptoms (CVA 2019: left leg weakness), Dizziness, Numbness (polyneuropathy-bilateral feet), Gait Disturbance (uses walker) Other: Reports: None (CKD state III: ), Easy Bleeding (History of DVT-on lovenox, bilateral carotid disease), Easy Bruising, Diabetes (AM Blood sugars:), Depression, Anxiety - Physical Assessment NPO Status Date: 11/20/19 NPO Status Time: 19:00 Vital Signs: Last Vital Signs Temp 36.1 C 11/21/19 10:45 Pulse 65 11/21/19 10:45 Resp 20 11/21/19 10:45 BP 121/45 L 11/21/19 10:45 Pulse Ox 100 11/21/19 10:45 Height: 1.65 m Weight: 72.575 kg ASA Class: 3 Mental Status: Alert & Oriented x3 Airway Class: Mallampati = 2 Dentition: Reports: Dentures (upper and lower) Thyro-Mental Finger Breadths: 3 Mouth Opening Finger Breadths: 3 ROM/Head Extension: Full Lungs: Clear to Auscultation, Normal Respiratory Effort, Decreased Breath Sounds Cardiovascular: Regular Rate, No Murmurs, Irregular Rhythm - Lab Values: Laboratory Last Values SARS-CoV-2 (PCR) Not detected (NOT DETECT) 11/17/19 08:42 All labs reviewed and noted and within acceptable ranges to proceed with scheduled procedure. - Imaging/EKG Impressions: EKG: SR rate=86, ventricular bigeminy, consider anterior infarct. - Allergies Allergies/Adverse Reactions: Allergies Allergy/AdvReac Type Severity Reaction Status Date / Time Penicillins Allergy Swelling Verified 11/20/19 14:08 - Anesthesia Plan Pre-Op Medication Ordered: None - Acknowledgements Anesthesia Type Planned: MAC Pt an Appropriate Candidate for the Planned Anesthesia: Yes Alternatives and Risks of Anesthesia Discussed w Pt/Guardian: Yes Pt/Guardian Understands and Agrees with Anesthesia Plan: Yes PreAnesthesia Questionnaire HEENT History: Reports: Impaired Vision Other HEENT History: wears eyeglasses Cardiovascular History: Reports: Angina, CAD, Heart Failure, High Cholesterol, Hypertension, Stents Other Cardiovascular History: carotid artery disease, ventricular bigeminy, bradycardia, arrhythmia, murmur, diastolic dysfunction, CHF, DVT, hypotension Respiratory History: Reports: COPD, Pneumonia, Recurrent Other Respiratory History: Has oxygen at home at night - 2 L per NC. 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: Other OB/BYN History: hysterectomy Musculoskeletal History: Reports: Arthritis, Back Pain, Chronic, Gout, Osteoarthritis, Osteoporosis Other Musculoskeletal History: Left sided sciatica, plantar fascia syndrome Neurological History: Reports: CVA, Neuropathy, Diabetic, Other (See Below) Other Neuro History: dizziness Psychiatric History: Reports: Anxiety, Depression Endocrine/Metabolic History: Reports: Diabetes, Type II, Obesity/BMI 30+ Hematologic History: Reports: Anemia, Blood Transfusion(s), Iron Deficiency, Other (See Below) Other Hematologic History: hypercalcemia, hyperkalemia Immunologic History: Reports: None Oncologic (Cancer) History: Reports: None Dermatologic History: Reports: Eczema Other Dermatologic History: eczema - Infectious Disease History Infectious Disease History: Reports: Influenza - Past Surgical History Head Surgeries/Procedures: Reports: None HEENT Surgical History: Reports: Cataract Surgery Cardiovascular Surgical History: Reports: Coronary Artery Stent, Percutaneous Transluminal Angioplasty Other Cardiovascular Surgeries/Procedures: Doctors have been keeping an eye on her left and right carotid - q6 months has them checked. Respiratory Surgical History: Reports: None GI Surgical History: Reports: Colonoscopy, Hernia Repair/Other Other GI Surgeries/Procedures: hemorhoidectomy Female Surgical History: Reports: Hysterectomy Other Female Surgeries/Procedures: Endocrine Surgical History: Reports: None Neurological Surgical History: Reports: None Musculoskeletal Surgical History: Reports: Carpal Tunnel Oncologic Surgical History: Reports: None - SUBSTANCE USE Tobacco Use Status *Q: Former Tobacco User Recreational Drug Use History: No - HOME MEDS Home Medications: Home Meds Albuterol/Ipratropium [DuoNeb 3.0-0.5 MG/3 ML] 3 ml INH BID 10/16/18 [History] Aspirin 81 mg PO DAILY 10/16/18 [History] Dicyclomine [Bentyl] 20 mg PO QID 10/16/18 [History] Furosemide 40 mg PO DAILY 10/16/18 [History] Nitroglycerin 0.4 mg PO Q5M PRN MDD 3 doses 10/16/18 [History] Pantoprazole [ProTONIX] 40 mg PO BID 10/16/18 [History] Potassium Chloride 10 meq PO DAILY 10/16/18 [History] Sertraline [Zoloft] 50 mg PO DAILY 10/16/18 [History] allopurinoL [Zyloprim] 300 mg PO BEDTIME 10/16/18 [History] Albuterol [Ventolin HFA] 2 puff INH BID 11/20/19 [History] Cholecalciferol (Vitamin D3) [Vitamin D3] 1,000 mg PO DAILY 11/20/19 [History] Docusate Sodium [Colace] 100 mg PO BID 11/20/19 [History] Enoxaparin Sodium [Lovenox] 80 mg SQ BID 11/20/19 [History] Mometasone Furoate [Asmanex Hfa] 1 puff INH BID 11/20/19 [History] Rosuvastatin Calcium [Crestor] 40 mg PO DAILY 11/20/19 [History] lisinopriL [Lisinopril] 20 mg PO DAILY 11/20/19 [History] - CURRENT (IN HOUSE) MEDS Current Meds: Current Medications Lactated Ringer's (Ringers, Lactated) 1,000 mls @ 125 mls/hr IV ASDIRECTED LUCI Stop: 11/21/19 23:00 Last Admin: 11/21/19 10:55 Dose: 125 mls/hr Documented by: Lidocaine/Sodium Bicarbonate (Buffered Lidocaine 1% In Ns 8.4%) 0.25 ml IDERM ONETIME PRN PRN Reason: Prior to IV Start Stop: 11/21/19 18:00 Last Admin: 11/21/19 10:55 Dose: 0.25 ml Documented by: Sodium Chloride (Saline Flush) 10 ml FLUSH ASDIRECTED PRN PRN Reason: Keep Vein Open Stop: 11/21/19 18:00
[2019-11-21] MEDS ORDERED: Lactated Ringers 1,000 ML ONE (12:00)
[2019-11-21] MEDS ORDERED: Propofol 200 MG/20 ML SDV ONE (12:00)
[2019-11-21] MEDS ORDERED: fentaNYL 100 MCG/2 ML SDV ONE (12:00)
[2019-11-21] MEDS ORDERED: Lidocaine 1% 4 ML ONE (12:00)
--- NOTE | 2019-11-21 13:38 | PCM48HPAN ---
Post Anesthesia Note - EVALUATION WITHIN 48HRS OF ANESTHETIC Vital Signs in Normal Range: Yes Patient Participated in Evaluation: Yes Respiratory Function Stable: Yes Airway Patent: Yes Cardiovascular Function Stable: Yes Hydration Status Stable: Yes Pain Control Satisfactory: Yes Nausea and Vomiting Control Satisfactory: Yes Mental Status Recovered: Yes Vital Signs: Last Vital Signs Temp 97.0 F 11/21/19 10:45 Pulse 65 11/21/19 10:45 Resp 20 11/21/19 10:45 BP 121/45 L 11/21/19 10:45 Pulse Ox 100 11/21/19 10:45 110/50 98% on 2L 90 14 97.2f
--- NOTE | 2019-11-21 13:45 | PCM.OPNOTE ---
- General Post-Op/Procedure Note Date of Surgery/Procedure: 11/21/19 Operative Procedure(s): Incomplete colonoscopy with hemorrhoid banding Findings: 1. severe diverticulosis and tortuosity of sigmoid and descending colon 2. Internal and external hemorrhoids Pre Op Diagnosis: History of diverticulitis Post-Op Diagnosis: same Anesthesia Technique: TACHO Primary Surgeon: Ese Mchugh Anesthesia Provider: James Conroy Pathology: none Fluid Replacement, Intraop: 700 Output, Urine Amount: 0 EBL in mLs: 0 Complications: none apparent Condition: Good
--- NOTE | 2019-11-21 14:12 | PCM.PRNOTE ---
- Free Text/Narrative Note: Operative Report Date of Surgery/Procedure: November 21, 2019 Operative Procedure: Incomplete Colonoscopy to descending colon with hemorrhoid banding Pre Op Diagnosis: History of diverticulitis Post-Op Diagnosis: same Surgeon: Ese Mchugh Anesthesia Technique: MAC Anesthesia Provider: James Conroy CRNA IV Fluid Replacement, Intraop: 700cc Output, Urine Amount: 0cc EBL: 0cc Findings: 1. severe diverticulosis and tortuosity of sigmoid and descending colon 2. Internal and external hemorrhoids Specimens: None Indication: The patient is a 79 year-old lady who presented to the outpatient clinic. The patient has a history of multiple episodes of diverticulitis, but has never had a follow-up colonoscopy. She also expressed problems with some hemorrhoids. We discussed the procedure of a colonoscopy including the polypectomy and biopsy, with possible hemorrhoid banding. Risks of bleeding and perforation were discussed, the patient understood and wished to proceed. Written and consent was obtained Description of the procedure: The patient was brought to the endoscopy suite and placed in the left lateral decubitus position. Appropriate monitors were applied. The patient was given MAC anesthesia. An anorectal examination was performed, revealing mild external hemorrhoids and external skin tags. The scope was placed into the rectum and advanced to the descending colon with difficulty requiring change in patient position to supine, withdrawal and reinsertion of the scope, and external abdominal pressure. Despite these maneuvers, the patient's colon was very tortuous with severe diverticulosis that did not allow the scope to be passed beyond 40 cm. The patient had excellent bowel prep, allowing for visualization of 100% of the mucosa. In the rectum, the scope was retroflexed and no abnormalities were noted, except for some internal hemorrhoidal tissue. The scope was placed back in the lumen and the excess air was aspirated. The patient did have more prominent external hemorrhoids at the end of the case. The hemorrhoid cloth spreader screen printing anoscope was then inserted into the anal canal. 4 hemorrhoid bands were then placed on the internal hemorrhoid tissue. The endoscope was then removed. The patient tolerated the procedure well. Complications: none apparent Condition: Good, transported to PACU in stable condition Ese Mchugh MD General Surgery
[2019-11-21 14:39] VITALS: BP 166/50; PULSE 72
== END 2019-11-21 14:51 | disposition home or self-care (01) ==
LOC: JD.SDS 10:40
PROVIDERS: ATTEND Surgery
DX: Z12.11 Encounter for screening for malignant neoplasm of colon (principal); K57.30 Diverticulosis of large intestine without perforation or abscess without bleeding; K64.8 Other hemorrhoids; K64.4 Residual hemorrhoidal skin tags; J44.9 Chronic obstructive pulmonary disease, unspecified; I25.10 Atherosclerotic heart disease of native coronary artery without angina pectoris; E78.2 Mixed hyperlipidemia; E78.00 Pure hypercholesterolemia, unspecified; I13.0 Hypertensive heart and chronic kidney disease with heart failure and stage 1 through stage 4 chronic kidney disease, or unspecified chronic kidney disease; N18.30 Chronic kidney disease, stage 3 unspecified; E11.22 Type 2 diabetes mellitus with diabetic chronic kidney disease; F41.9 Anxiety disorder, unspecified; F32.9 Major depressive disorder, single episode, unspecified; Z01.812 Encounter for preprocedural laboratory examination; Z20.828 Contact with and (suspected) exposure to other viral communicable diseases; Z98.890 Other specified postprocedural states; Z79.899 Other long term (current) drug therapy; Z79.82 Long term (current) use of aspirin; Z88.0 Allergy status to penicillin; Z87.891 Personal history of nicotine dependence; Z86.73 Personal history of transient ischemic attack (TIA), and cerebral infarction without residual deficits
CPT/HCPCS: 45330; 46221; 82962; J2001; J2704; J3010; J7120; U0002; 00902

== ENCOUNTER 2019-11-30 15:23 | Emergency (ER) | payer MEDICARE, MEDICAID ==
[2019-11-30] MEDS ORDERED: Sodium Chloride 0.9% 10 ML Syringe FLUSH PRN (17:31)
--- NOTE | 2019-11-30 17:33 | EDM.PDOC ---
ED HPI GENERAL MEDICAL PROBLEM - General Chief Complaint: Gastrointestinal Problem Stated Complaint: RECTAL BLEEDING/DIZZINESS POST COLONOSCOPY Time Seen by Provider: 11/30/19 15:40 Source of Information: Reports: Patient, RN Notes Reviewed - History of Present Illness INITIAL COMMENTS - FREE TEXT/NARRATIVE: 79 yr old female sent to ED for eval of "low heart rate at clinic", dizziness associated with anemia and some recent rectal bleeding about 1 week status post colonoscopy. It sounds like she did have some polyps removed about a week ago. Has had what she describes as a small amt of rectal bleeding last night and again this AM. She saw Dr Caro, her surgeon at the clinic this afternoon. Was noted to have low heart rate in the 30's when her vitals were taken. No chest or abd pain. No difficulty breathing. She has had some mild dizziness when first standing up, especially in the morning. She is also on lovenox in addition to her her other meds with hx of "clotting disorder". - Related Data Allergies Allergy/AdvReac Type Severity Reaction Status Date / Time Penicillins Allergy Swelling Verified 12/01/19 09:59 Home Meds: Home Meds Albuterol/Ipratropium [DuoNeb 3.0-0.5 MG/3 ML] 3 ml INH BID PRN 10/16/18 [History] Aspirin 81 mg PO DAILY 10/16/18 [History] Dicyclomine [Bentyl] 20 mg PO QID 10/16/18 [History] Furosemide 40 mg PO DAILY 10/16/18 [History] Nitroglycerin 0.4 mg PO Q5M PRN MDD 3 doses 10/16/18 [History] Pantoprazole [ProTONIX] 40 mg PO DAILY 10/16/18 [History] Potassium Chloride 20 meq PO DAILY 10/16/18 [History] Sertraline [Zoloft] 50 mg PO BEDTIME 10/16/18 [History] allopurinoL [Zyloprim] 300 mg PO BEDTIME 10/16/18 [History] Albuterol [Ventolin HFA] 2 puff INH BID PRN 11/20/19 [History] Cholecalciferol (Vitamin D3) [Vitamin D3] 1,000 mg PO DAILY 11/20/19 [History] Docusate Sodium [Colace] 100 mg PO BID 11/20/19 [History] Enoxaparin Sodium [Lovenox] 80 mg SQ BID 11/20/19 [History] Mometasone Furoate [Asmanex Hfa] 1 puff INH BID 11/20/19 [History] Rosuvastatin Calcium [Crestor] 40 mg PO BEDTIME 11/20/19 [History] lisinopriL [Lisinopril] 20 mg PO DAILY 11/20/19 [History] Past Medical History HEENT History: Reports: Impaired Vision Other HEENT History: wears eyeglasses Cardiovascular History: Reports: Angina, CAD, Heart Failure, High Cholesterol, Hypertension, Stents Other Cardiovascular History: carotid artery disease, ventricular bigeminy, bradycardia, arrhythmia, murmur, diastolic dysfunction, CHF, DVT, hypotension Respiratory History: Reports: COPD, Pneumonia, Recurrent Other Respiratory History: Has oxygen at home at night - 2 L per NC. Gastrointestinal History: Reports: GERD, Helicobacter Pylori, Irritable Bowel Syndrome Genitourinary History: Reports: Chronic Renal Insuffiency Other Genitourinary History: renal disease, CKD III PROTECTIVE SIGNAL REPAIRER History: Reports: Other PROTECTIVE SIGNAL REPAIRER History: hysterectomy Musculoskeletal History: Reports: Arthritis, Back Pain, Chronic, Gout, Osteoarthritis, Osteoporosis Other Musculoskeletal History: Left sided sciatica, plantar fascia syndrome Neurological History: Reports: CVA, Neuropathy, Diabetic, Other (See Below) Other Neuro History: dizziness Psychiatric History: Reports: Anxiety, Depression Endocrine/Metabolic History: Reports: Diabetes, Type II, Obesity/BMI 30+ Hematologic History: Reports: Anemia, Blood Transfusion(s), Iron Deficiency, Other (See Below) Other Hematologic History: hypercalcemia, hyperkalemia Immunologic History: Reports: None Oncologic (Cancer) History: Reports: None Dermatologic History: Reports: Eczema Other Dermatologic History: eczema - Infectious Disease History Infectious Disease History: Reports: Influenza - Past Surgical History Head Surgeries/Procedures: Reports: None HEENT Surgical History: Reports: Cataract Surgery Cardiovascular Surgical History: Reports: Coronary Artery Stent, Percutaneous Transluminal Angioplasty Other Cardiovascular Surgeries/Procedures: Doctors have been keeping an eye on her left and right carotid - q6 months has them checked. Respiratory Surgical History: Reports: None GI Surgical History: Reports: Colonoscopy, Hernia Repair/Other Other GI Surgeries/Procedures: hemorhoidectomy Female Surgical History: Reports: Hysterectomy Other Female Surgeries/Procedures: Endocrine Surgical History: Reports: None Neurological Surgical History: Reports: None Musculoskeletal Surgical History: Reports: Carpal Tunnel Oncologic Surgical History: Reports: None Social & Family History - Family History Family Medical History: Noncontributory Oncologic: Reports: Bone, Lung - Caffeine Use Caffeine Use: Reports: Coffee, Soda, Tea Other Caffeine Use: cup of coffee every morning - Recreational Drug Use Recreational Drug Use: No - Living Situation & Occupation Living situation: Reports: , Alone Occupation: Retired ED ROS GENERAL - Review of Systems Review Of Systems: See Below Constitutional: Denies: Fever, Chills, Diaphoresis HEENT: Reports: No Symptoms Respiratory: Denies: Shortness of Breath Cardiovascular: Denies: Chest Pain Endocrine: Reports: Fatigue GI/Abdominal: Reports: Hematochezia. Denies: Abdominal Pain, Nausea, Vomiting Musculoskeletal: Reports: No Symptoms Skin: Denies: Rash Neurological: Reports: Dizziness (mild) ED EXAM, GI/ABD - Physical Exam Exam: See Below General Appearance: Alert, No Apparent Distress Head: Atraumatic Neck: Supple Respiratory/Chest: No Respiratory Distress, Lungs Clear, Normal Breath Sounds Cardiovascular: Other (irregular) GI/Abdominal Exam: Soft, Non-Tender Back Exam: No: CVA Tenderness (L), CVA Tenderness (R) Extremities: Normal Inspection. No: Pedal Edema, Leg Pain Neurological: Alert, Oriented, No Motor/Sensory Deficits Skin Exam: Warm, Dry, Normal Color Course - Vital Signs Last Recorded V/S: Last Vital Signs Temp 98.3 F 11/30/19 21:45 Pulse 66 11/30/19 18:50 Resp 17 11/30/19 21:45 BP 136/99 H 11/30/19 21:45 Pulse Ox 98 11/30/19 18:50 - Orders/Labs/Meds Orders: Active Orders 24 hr Category Date Time Status Peripheral IV Insertion Adult [OM.PC] Stat Oth 11/30/19 17:31 Ordered Transfuse PRBC [Transfuse Red Blood Cells] [COMM] Stat Oth 11/30/19 17:31 Ordered Labs: Laboratory Tests 11/30/19 11/30/19 Range/Units 16:30 16:50 WBC 8.16 (3.98-10.04) K/mm3 RBC 3.73 L (3.98-5.22) M/mm3 Hgb 7.7 L D (11.2-15.7) gm/dl Hct 27.2 L (34.1-44.9) % MCV 72.9 L D (79.4-94.8) fl MCH 20.6 L (25.6-32.2) pg MCHC 28.3 L (32.2-35.5) g/dl RDW Std Deviation 58.7 H (36.4-46.3) fL Plt Count 322 (182-369) K/mm3 MPV 10.4 (9.4-12.3) fl Neut % (Auto) 49.0 (34.0-71.1) % Lymph % (Auto) 38.6 (19.3-51.7) % Lares % (Auto) 9.6 (4.7-12.5) % Eos % (Auto) 2.2 (0.7-5.8) Baso % (Auto) 0.5 (0.1-1.2) % Neut # (Auto) 4.00 (1.56-6.13) K/mm3 Lymph # (Auto) 3.15 (1.18-3.74) K/mm3 Lares # (Auto) 0.78 H (0.24-0.36) K/mm3 Eos # (Auto) 0.18 (0.04-0.36) K/mm3 Baso # (Auto) 0.04 (0.01-0.08) K/mm3 Manual Slide Review Abnormal smear Blood Type O POSITIVE Gel Antibody Screen Negative Crossmatch See Detail Meds: Medications Discontinued Medications Generic Name Dose Route Start Last Admin Trade Name Kjq PRN Reason Stop Dose Admin Sodium Chloride 250 mls @ 10 mls/hr 11/30/19 18:00 11/30/19 18:45 Normal Saline IV 10 mls/hr ASDIRECTED LUCI Administration Sodium Chloride 10 ml 11/30/19 17:31 11/30/19 17:40 Saline Flush FLUSH 10 ml ASDIRECTED PRN Administration Keep Vein Open - Re-Assessments/Exams Free Text/Narrative Re-Assessment/Exam: 11/30/19 17:43 Hgb has come back at 7.7. Cardiac moniter shows sinus rythm with frequent PVC's. Heart rate has been in the 60, 70's the whole time she has been here. When patient is asked about her irregular heart rythm patient states "I have had that for a long time". I have discussed this with Dr Caro, her surgeon. States her hgb was 8.8 3 days ago. Because she is on lovenox, has dropped her hgb 1.1 in 3 days, has had some rectal bleeding, we are heading into the weekend, she has known heart disease with stents we are going to transfuse her 1 unit this evening while she is here in the ED. Pt is OK with that. Dr Caro has asked she follow up with her provider Dr Payne next week and also get an appointment to see Dr Pantoja, [facility]. Departure - Departure Time of Disposition: 19:00 Disposition: Home, Self-Care 01 Condition: Fair Clinical Impression: Rectal bleeding, PVCs (premature ventricular contractions) Anemia Qualifiers: Anemia type: unspecified type Qualified Code(s): D64.9 - Anemia, unspecified - Discharge Information Instructions: Blood Transfusion, Adult, Care After, [id number] Referrals: Shell Arambula MD [Primary Care Provider] - Forms: ED Department Discharge Sepsis Event Note (ED) - Evaluation Sepsis Screening Result: No Definite Risk - My Orders Last 24 Hours: My Active Orders 11/30/19 17:31 Peripheral IV Insertion Adult [OM.PC] Stat Transfuse PRBC [Transfuse Red Blood Cells] [COMM] Stat - Assessment/Plan Last 24 Hours: My Active Orders 11/30/19 17:31 Peripheral IV Insertion Adult [OM.PC] Stat Transfuse PRBC [Transfuse Red Blood Cells] [COMM] Stat
[2019-11-30] MEDS ORDERED: Sodium Chloride 0.9% 250 ML IV SCH (18:00)
[2019-11-30 18:52] VITALS: PULSE 66
[2019-11-30 21:47] VITALS: BP 136/99
== END 2019-11-30 22:06 | disposition home or self-care (01) ==
LOC: JD.ED 15:23
DX: I49.3 Ventricular premature depolarization (principal); D63.1 Anemia in chronic kidney disease; K62.5 Hemorrhage of anus and rectum; I13.0 Hypertensive heart and chronic kidney disease with heart failure and stage 1 through stage 4 chronic kidney disease, or unspecified chronic kidney disease; E11.22 Type 2 diabetes mellitus with diabetic chronic kidney disease; N18.30 Chronic kidney disease, stage 3 unspecified; I50.9 Heart failure, unspecified; E66.9 Obesity, unspecified; K21.9 Gastro-esophageal reflux disease without esophagitis; E11.40 Type 2 diabetes mellitus with diabetic neuropathy, unspecified; F41.9 Anxiety disorder, unspecified; F32.9 Major depressive disorder, single episode, unspecified; M10.9 Gout, unspecified; Z86.73 Personal history of transient ischemic attack (TIA), and cerebral infarction without residual deficits; Z95.5 Presence of coronary angioplasty implant and graft; Z90.49 Acquired absence of other specified parts of digestive tract; Z88.0 Allergy status to penicillin; Z79.82 Long term (current) use of aspirin; Z79.899 Other long term (current) drug therapy
CPT/HCPCS: 36415; 36430; 85025; 86850; 86900; 86901; 86922; 99284; J7050; P9016; 99283

== ENCOUNTER 2019-12-01 09:42 | Observation (INO) | payer MEDICARE, MEDICAID ==
[2019-12-01] MEDS ORDERED: Sodium Chloride 0.9% 10 ML Syringe FLUSH PRN (10:05)
[2019-12-01] MEDS ORDERED: Sodium Chloride 0.9% 1,000 ML IV SCH ×2 (10:15→11:30)
--- NOTE | 2019-12-01 10:36 | EDM.PDOC ---
ED HPI GENERAL MEDICAL PROBLEM - General Chief Complaint: Gastrointestinal Problem Stated Complaint: RECTAL BLEEDING Time Seen by Provider: 12/01/19 10:04 Source of Information: Reports: Patient, RN Notes Reviewed - History of Present Illness INITIAL COMMENTS - FREE TEXT/NARRATIVE: 79 yr old lady has had off and on rectal bleeding for the last 2 days. She did have a colonoscopy a week or more ago. Was sent over from clinic last evening with concern about heart rythm, concern for bradycardia. Found to be having frequent PVC's but also found to have hgb of about 7.7 down from 8.8 three days prior. She was transfused 1 unit PRBC's, allowed to go home. She did OK the remainder of last evening and than started having "moderately heavy rectal bleeding around 3 Am", moderate amount of blood and clots, and than continued mild rectal blood draining since that time. Last changed her pad and depends about 2 hrs ago. She does feel dizzy and light headed when first standing but has been able to walk OK without other difficulty. She has been on chronic anticoagulants. She was switched to bid lovenox about 3 weeks ago for a "blood clot behind my knee that hasn't gone away". No chest, abd pain or difficulty breathing at time of exam. - Related Data Allergies Allergy/AdvReac Type Severity Reaction Status Date / Time Penicillins Allergy Swelling Verified 12/01/19 09:59 Home Meds: Home Meds Albuterol/Ipratropium [DuoNeb 3.0-0.5 MG/3 ML] 3 ml INH BID 10/16/18 [History] Aspirin 81 mg PO DAILY 10/16/18 [History] Dicyclomine [Bentyl] 20 mg PO QID 10/16/18 [History] Furosemide 40 mg PO DAILY 10/16/18 [History] Nitroglycerin 0.4 mg PO Q5M PRN MDD 3 doses 10/16/18 [History] Pantoprazole [ProTONIX] 40 mg PO BID 10/16/18 [History] Potassium Chloride 20 meq PO DAILY 10/16/18 [History] Sertraline [Zoloft] 50 mg PO DAILY 10/16/18 [History] allopurinoL [Zyloprim] 300 mg PO BEDTIME 10/16/18 [History] Albuterol [Ventolin HFA] 2 puff INH BID 11/20/19 [History] Cholecalciferol (Vitamin D3) [Vitamin D3] 1,000 mg PO DAILY 11/20/19 [History] Docusate Sodium [Colace] 100 mg PO BID 11/20/19 [History] Enoxaparin Sodium [Lovenox] 80 mg SQ BID 11/20/19 [History] Mometasone Furoate [Asmanex Hfa] 1 puff INH BID 11/20/19 [History] Rosuvastatin Calcium [Crestor] 40 mg PO DAILY 11/20/19 [History] lisinopriL [Lisinopril] 20 mg PO DAILY 11/20/19 [History] Past Medical History HEENT History: Reports: Impaired Vision Other HEENT History: wears eyeglasses Cardiovascular History: Reports: Angina, CAD, Heart Failure, High Cholesterol, Hypertension, Stents Other Cardiovascular History: carotid artery disease, ventricular bigeminy, bradycardia, arrhythmia, murmur, diastolic dysfunction, CHF, DVT, hypotension Respiratory History: Reports: COPD, Pneumonia, Recurrent Other Respiratory History: Has oxygen at home at night - 2 L per [place]. Gastrointestinal History: Reports: GERD, GI Bleed, Helicobacter Pylori, Irritable Bowel Syndrome Genitourinary History: Reports: Chronic Renal Insuffiency Other Genitourinary History: renal disease, CKD III SPECIAL DELIVERY MAIL CARRIER History: Reports: Other SPECIAL DELIVERY MAIL CARRIER History: hysterectomy Musculoskeletal History: Reports: Arthritis, Back Pain, Chronic, Gout, Osteoarthritis, Osteoporosis Other Musculoskeletal History: Left sided sciatica, plantar fascia syndrome Neurological History: Reports: CVA, Neuropathy, Diabetic, Other (See Below) Other Neuro History: dizziness Psychiatric History: Reports: Anxiety, Depression Endocrine/Metabolic History: Reports: Diabetes, Type II, Obesity/BMI 30+ Hematologic History: Reports: Anemia, Anticoagulation Therapy, Blood Transfusion(s), Iron Deficiency, Other (See Below) Other Hematologic History: hypercalcemia, hyperkalemia Immunologic History: Reports: None Oncologic (Cancer) History: Reports: None Dermatologic History: Reports: Eczema Other Dermatologic History: eczema - Infectious Disease History Infectious Disease History: Reports: Influenza - Past Surgical History HEENT Surgical History: Reports: Cataract Surgery Cardiovascular Surgical History: Reports: Coronary Artery Stent, Percutaneous Transluminal Angioplasty Other Cardiovascular Surgeries/Procedures: Doctors have been keeping an eye on her left and right carotid - q6 months has them checked. GI Surgical History: Reports: Colonoscopy, Hernia Repair/Other Other GI Surgeries/Procedures: hemorhoidectomy Female Surgical History: Reports: Hysterectomy Other Female Surgeries/Procedures: Musculoskeletal Surgical History: Reports: Carpal Tunnel Social & Family History - Family History Family Medical History: Noncontributory Oncologic: Reports: Bone, Lung - Tobacco Use Tobacco Use Status *Q: Never Tobacco User - Caffeine Use Caffeine Use: Reports: Coffee, Soda Other Caffeine Use: cup of coffee every morning - Recreational Drug Use Recreational Drug Use: No - Living Situation & Occupation Living situation: Reports: , Alone Occupation: Retired ED ROS GENERAL - Review of Systems Review Of Systems: See Below Constitutional: Denies: Fever, Chills, Diaphoresis HEENT: Reports: No Symptoms Respiratory: Denies: Shortness of Breath Cardiovascular: Denies: Chest Pain Endocrine: Reports: Fatigue GI/Abdominal: Reports: Hematochezia. Denies: Abdominal Pain, Nausea, Vomiting Musculoskeletal: Reports: No Symptoms Skin: Reports: Bruising (mid and lower abd from prior lovenox injections) Neurological: Reports: Dizziness (gone) ED EXAM, GI/ABD - Physical Exam Exam: See Below General Appearance: Alert, No Apparent Distress Head: Atraumatic Neck: Supple Respiratory/Chest: No Respiratory Distress, Lungs Clear, Normal Breath Sounds Cardiovascular: Regular Rate, Rhythm GI/Abdominal Exam: Soft, Non-Tender, Other (there are 2 areas of old brusing, palpable hematomas lower mid abd wall) Extremities: Normal Inspection Neurological: Alert, Oriented Skin Exam: Warm, Dry, Normal Color #1 Interpretation EKG Date: 12/01/19 Rhythm: Other (NSR with ventricular bigeminy) Rate (Beats/Min): 83 [place]: Normal P-Wave: Present QRS: Normal ST-T: Normal Course - Vital Signs Last Recorded V/S: Last Vital Signs Temp 97.9 F 12/01/19 09:55 Pulse 64 12/01/19 09:55 Resp 20 12/01/19 09:55 BP 83/68 L 12/01/19 09:55 Pulse Ox 93 L 12/01/19 09:55 - Orders/Labs/Meds Orders: Active Orders 24 hr Category Date Time Status EKG 12 Lead [EKG Documentation Completion] [RC] STAT Care 12/01/19 10:06 Active Peripheral IV Care [RC] . DIRECTED Care 12/01/19 10:06 Active TYPE AND SCREEN [BBK] Stat Lab 12/01/19 10:13 Received Sodium Chloride 0.9% [Normal Saline] 1,000 ml Med 12/01/19 10:15 Active IV ASDIRECTED Sodium Chloride 0.9% [Normal Saline] 1,000 ml Med 12/01/19 11:30 Active IV ONETIME Sodium Chloride 0.9% [Saline Flush] Med 12/01/19 10:05 Active 10 ml FLUSH ASDIRECTED PRN Peripheral IV Insertion Adult [OM.PC] Stat Oth 12/01/19 10:05 Ordered Medication Orders Sodium Chloride (Normal Saline) 1,000 mls @ 150 mls/hr IV ASDIRECTED LUCI Last Admin: 12/01/19 10:44 Dose: 150 mls/hr Documented by: JES Sodium Chloride (Normal Saline) 1,000 mls @ 999 mls/hr IV ONETIME LUCI Sodium Chloride (Saline Flush) 10 ml FLUSH ASDIRECTED PRN PRN Reason: Keep Vein Open Last Admin: 12/01/19 10:44 Dose: 10 ml Documented by: JES Labs: Laboratory Tests 12/01/19 12/01/19 Range/Units 10:13 10:13 WBC 7.75 (3.98-10.04) K/mm3 RBC 3.87 L (3.98-5.22) M/mm3 Hgb 8.4 L (11.2-15.7) gm/dl Hct 28.4 L (34.1-44.9) % MCV 73.4 L (79.4-94.8) fl MCH 21.7 L (25.6-32.2) pg MCHC 29.6 L (32.2-35.5) g/dl RDW Std Deviation 57.0 H (36.4-46.3) fL Plt Count 283 (182-369) K/mm3 MPV 10.7 (9.4-12.3) fl Neut % (Auto) 52.9 (34.0-71.1) % Lymph % (Auto) 29.2 (19.3-51.7) % Bacon % (Auto) 14.1 H (4.7-12.5) % Eos % (Auto) 3.1 (0.7-5.8) Baso % (Auto) 0.4 (0.1-1.2) % Neut # (Auto) 4.11 (1.56-6.13) K/mm3 Lymph # (Auto) 2.26 (1.18-3.74) K/mm3 Bacon # (Auto) 1.09 H (0.24-0.36) K/mm3 Eos # (Auto) 0.24 (0.04-0.36) K/mm3 Baso # (Auto) 0.03 (0.01-0.08) K/mm3 Manual Slide Review Abnormal smear Sodium 140 (136-145) mEq/L Potassium 4.0 (3.5-5.1) mEq/L Chloride 106 (98-107) mEq/L Carbon Dioxide 26 (21-32) mEq/L Anion Gap 12.0 (5-15) BUN 32 H (7-18) mg/dL Creatinine 1.5 H (0.55-1.02) mg/dL Est Cr Clr Drug Dosing 27.81 mL/min Estimated GFR (MDRD) 34 (>60) mL/min BUN/Creatinine Ratio 21.3 H (14-18) Glucose 109 (83-115) mg/dL Calcium 9.6 (8.5-10.1) mg/dL Total Bilirubin 0.4 (0.2-1.0) mg/dL AST 15 (15-37) U/L ALT 16 (14-59) U/L Alkaline Phosphatase 61 (46-116) U/L Total Protein 6.4 (6.4-8.2) g/dl Albumin 2.6 L (3.4-5.0) g/dl Globulin 3.8 gm/dL Albumin/Globulin Ratio 0.7 L (1-2) Meds: Medications Generic Name Dose Route Start Last Admin Trade Name Freq PRN Reason Stop Dose Admin Sodium Chloride 1,000 mls @ 150 mls/hr 12/01/19 10:15 12/01/19 10:44 Normal Saline IV 150 mls/hr ASDIRECTED LUCI Administration Sodium Chloride 1,000 mls @ 999 mls/hr 12/01/19 11:30 Normal Saline IV ONETIME LUCI Sodium Chloride 10 ml 12/01/19 10:05 12/01/19 10:44 Saline Flush FLUSH 10 ml ASDIRECTED PRN Administration Keep Vein Open - Re-Assessments/Exams Free Text/Narrative Re-Assessment/Exam: 12/01/19 11:28 Hgb 8.4. She did drop about 20 pts systolic lying to standing. Will admit obs status, med surg telemetry. current BP 103/40. Departure - Departure Time of Disposition: 11:15 Disposition: Refer to Observation Condition: Serious Clinical Impression: Rectal hemorrhage, Anemia - Discharge Information Referrals: Shell Aramubla MD [Primary Care Provider] - Forms: ED Department Discharge Sepsis Event Note (ED) - Evaluation Sepsis Screening Result: No Definite Risk - Focused Exam Vital Signs: Vital Signs Temp Pulse Resp BP Pulse Ox 12/01/19 09:55 97.9 F 64 20 83/68 L 93 L ED Communication - Discussed Case With (1) Discussed Case With (1): Admitting Provider (Dr Caro, decision to admit at about 11:15.) - My Orders Last 24 Hours: My Active Orders 12/01/19 10:05 Sodium Chloride 0.9% [Saline Flush] 10 ml FLUSH ASDIRECTED PRN Peripheral IV Insertion Adult [OM.PC] Stat 12/01/19 10:06 EKG 12 Lead [EKG Documentation Completion] [RC] STAT Peripheral IV Care [RC] . DIRECTED 12/01/19 10:13 TYPE AND SCREEN [BBK] Stat 12/01/19 10:15 Sodium Chloride 0.9% [Normal Saline] 1,000 ml IV ASDIRECTED 12/01/19 11:30 Sodium Chloride 0.9% [Normal Saline] 1,000 ml IV ONETIME - Assessment/Plan Last 24 Hours: My Active Orders 12/01/19 10:05 Sodium Chloride 0.9% [Saline Flush] 10 ml FLUSH ASDIRECTED PRN Peripheral IV Insertion Adult [OM.PC] Stat 12/01/19 10:06 EKG 12 Lead [EKG Documentation Completion] [RC] STAT Peripheral IV Care [RC] . DIRECTED 12/01/19 10:13 TYPE AND SCREEN [BBK] Stat 12/01/19 10:15 Sodium Chloride 0.9% [Normal Saline] 1,000 ml IV ASDIRECTED 12/01/19 11:30 Sodium Chloride 0.9% [Normal Saline] 1,000 ml IV ONETIME
--- NOTE | 2019-12-01 13:43 | PCM.HP.2 ---
H&P History of Present Illness - General Date of Service: 12/01/19 Admit Problem/Dx: Admission Diagnosis/Problem Admission Diagnosis/Problem Rectal hemorrhage Source of Information: Patient, Provider History Limitations: Reports: No Limitations - History of Present Illness Initial Comments - Free Text/Narative: The patient is a 79 y/o lady who was admitted for rectal bleeding, anemia and orthostasis. She underwent a partial colonoscopy 11 days ago, but this could not be completed due to tortuosity and severe diverticulosis, however, hemorrhoid bands were placed. She was seen in clinic one day ago, with reports of only two episodes of rectal bleeding. She had a drop in her hemoglobin 3d prior to her visit to the clinic, but has also had ongoing anemia. She presents today with continued rectal bleeding that became heavier early this am. She woke up with rectal bleeding of fresh blood mixed with clots. She stopped her therapeutic lovenox last night of her own accord. She denies any anal pain. She has abdominal pain only in the areas on her abdominal wall where she had been administering the injections. She denies any bowel movement for 3 days. She received a bolus in the ED, and has had improvement in her dizziness - Related Data Allergies/Adverse Reactions: Allergies Allergy/AdvReac Type Severity Reaction Status Date / Time Penicillins Allergy Swelling Verified 12/01/19 09:59 Home Medications: Home Meds Albuterol/Ipratropium [DuoNeb 3.0-0.5 MG/3 ML] 3 ml INH BID 10/16/18 [History] Aspirin 81 mg PO DAILY 10/16/18 [History] Dicyclomine [Bentyl] 20 mg PO QID 10/16/18 [History] Furosemide 40 mg PO DAILY 10/16/18 [History] Nitroglycerin 0.4 mg PO Q5M PRN MDD 3 doses 10/16/18 [History] Pantoprazole [ProTONIX] 40 mg PO BID 10/16/18 [History] Potassium Chloride 20 meq PO DAILY 10/16/18 [History] Sertraline [Zoloft] 50 mg PO DAILY 10/16/18 [History] allopurinoL [Zyloprim] 300 mg PO BEDTIME 10/16/18 [History] Albuterol [Ventolin HFA] 2 puff INH BID 11/20/19 [History] Cholecalciferol (Vitamin D3) [Vitamin D3] 1,000 mg PO DAILY 11/20/19 [History] Docusate Sodium [Colace] 100 mg PO BID 11/20/19 [History] Enoxaparin Sodium [Lovenox] 80 mg SQ BID 11/20/19 [History] Mometasone Furoate [Asmanex Hfa] 1 puff INH BID 11/20/19 [History] Rosuvastatin Calcium [Crestor] 40 mg PO DAILY 11/20/19 [History] lisinopriL [Lisinopril] 20 mg PO DAILY 11/20/19 [History] Past Medical History HEENT History: Reports: Impaired Vision Other HEENT History: wears eyeglasses Cardiovascular History: Reports: Angina, CAD, Heart Failure, High Cholesterol, Hypertension, Stents Other Cardiovascular History: carotid artery disease, ventricular bigeminy, bradycardia, arrhythmia, murmur, diastolic dysfunction, CHF, DVT, hypotension Respiratory History: Reports: COPD, Pneumonia, Recurrent Other Respiratory History: Has oxygen at home at night - 2 L per NC. Gastrointestinal History: Reports: GERD, GI Bleed, Helicobacter Pylori, Irritable Bowel Syndrome Genitourinary History: Reports: Chronic Renal Insuffiency Other Genitourinary History: renal disease, CKD III [employer] WORK[employer] History: Reports: Other OB/BYN History: hysterectomy Musculoskeletal History: Reports: Arthritis, Back Pain, Chronic, Gout, Osteoarthritis, Osteoporosis Other Musculoskeletal History: Left sided sciatica, plantar fascia syndrome Neurological History: Reports: CVA, Neuropathy, Diabetic, Other (See Below) Other Neuro History: dizziness Psychiatric History: Reports: Anxiety, Depression Endocrine/Metabolic History: Reports: Diabetes, Type II, Obesity/BMI 30+ Hematologic History: Reports: Anemia, Anticoagulation Therapy, Blood Transfusion(s), Iron Deficiency, Other (See Below) Other Hematologic History: hypercalcemia, hyperkalemia Immunologic History: Reports: None Oncologic (Cancer) History: Reports: None Dermatologic History: Reports: Eczema Other Dermatologic History: eczema - Infectious Disease History Infectious Disease History: Reports: Influenza, RSV - Past Surgical History HEENT Surgical History: Reports: Cataract Surgery Cardiovascular Surgical History: Reports: Coronary Artery Stent, Percutaneous T ransluminal Angioplasty Other Cardiovascular Surgeries/Procedures: Doctors have been keeping an eye on her left and right carotid - q6 months has them checked. GI Surgical History: Reports: Colonoscopy, Hernia Repair/Other Other GI Surgeries/Procedures: hemorhoidectomy Female Surgical History: Reports: Hysterectomy Other Female Surgeries/Procedures: Musculoskeletal Surgical History: Reports: Carpal Tunnel Social & Family History - Family History Cardiac: Reports: High Cholesterol, Hypertension : Reports: Renal Disease/Insufficiency Endocrine/Metabolic: Reports: Diabetes, Type I, Diabetes, type II Oncologic: Reports: Bone, Lung - Tobacco Use Tobacco Use Status *Q: Never Tobacco User - Caffeine Use Caffeine Use: Reports: Coffee, Soda Other Caffeine Use: cup of coffee every morning - Recreational Drug Use Recreational Drug Use: No - Living Situation & Occupation Living situation: Reports: , Alone Occupation: Retired H&P Review of Systems - Review of Systems: Review Of Systems: See Below General: Reports: No Symptoms HEENT: Reports: No Symptoms Pulmonary: Reports: No Symptoms Cardiovascular: Reports: No Symptoms Gastrointestinal: Reports: Other (rectal bleeding) Genitourinary: Reports: No Symptoms. Denies: Hematuria Musculoskeletal: Reports: No Symptoms Skin: Reports: No Symptoms Psychiatric: Reports: No Symptoms Neurological: Reports: No Symptoms Hematologic/Lymphatic: Reports: Anemia Exam - Exam Exam: See Below - Vital Signs Vital Signs: Last Vital Signs Temp 36.6 C 12/01/19 09:55 Pulse 64 12/01/19 09:55 Resp 20 12/01/19 09:55 BP 83/68 L 12/01/19 09:55 Pulse Ox 93 L 12/01/19 09:55 Orthostatic Blood Pressure [ 91/38 Standing] Orthostatic Blood Pressure [ 99/56 Sitting] Orthostatic Blood Pressure [ 110/45 Supine] Weight: 72.575 kg - Exam Quality Assessment: No: Supplemental Oxygen General: Alert, Oriented HEENT: Conjunctiva Clear, EOMI Neck: Supple Lungs: Normal Respiratory Effort GI/Abdominal Exam: Soft, Non-Tender, Other (lower abdominal wall with ecchymosis and underlying firmness) Rectal (Female) Exam: Other (normal external appearance, no oozing noted) Skin: Warm, Dry, Intact Neurological: Cranial Nerves Intact Neuro Extensive - Mental Status: Normal Mood/Affect - Patient Data Lab Results Last 24 hrs: Laboratory Results - last 24 hr 12/01/19 12/01/19 12/01/19 Range/Units 10:13 10:13 10:13 WBC 7.75 (3.98-10.04) K/mm3 RBC 3.87 L (3.98-5.22) M/mm3 Hgb 8.4 L (11.2-15.7) gm/dl Hct 28.4 L (34.1-44.9) % MCV 73.4 L (79.4-94.8) fl MCH 21.7 L (25.6-32.2) pg MCHC 29.6 L (32.2-35.5) g/dl RDW Std Deviation 57.0 H (36.4-46.3) fL Plt Count 283 (182-369) K/mm3 MPV 10.7 (9.4-12.3) fl Neut % (Auto) 52.9 (34.0-71.1) % Lymph % (Auto) 29.2 (19.3-51.7) % [place] % (Auto) 14.1 H (4.7-12.5) % Eos % (Auto) 3.1 (0.7-5.8) Baso % (Auto) 0.4 (0.1-1.2) % Neut # (Auto) 4.11 (1.56-6.13) K/mm3 Lymph # (Auto) 2.26 (1.18-3.74) K/mm3 [place] # (Auto) 1.09 H (0.24-0.36) K/mm3 Eos # (Auto) 0.24 (0.04-0.36) K/mm3 Baso # (Auto) 0.03 (0.01-0.08) K/mm3 Manual Slide Review Abnormal smear Sodium 140 (136-145) mEq/L Potassium 4.0 (3.5-5.1) mEq/L Chloride 106 (98-107) mEq/L Carbon Dioxide 26 (21-32) mEq/L Anion Gap 12.0 (5-15) BUN 32 H (7-18) mg/dL Creatinine 1.5 H (0.55-1.02) mg/dL Est Cr Clr Drug Dosing 27.81 mL/min Estimated GFR (MDRD) 34 (>60) mL/min BUN/Creatinine Ratio 21.3 H (14-18) Glucose 109 (83-115) mg/dL Calcium 9.6 (8.5-10.1) mg/dL Total Bilirubin 0.4 (0.2-1.0) mg/dL AST 15 (15-37) U/L ALT 16 (14-59) U/L Alkaline Phosphatase 61 (46-116) U/L Total Protein 6.4 (6.4-8.2) g/dl Albumin 2.6 L (3.4-5.0) g/dl Globulin 3.8 gm/dL Albumin/Globulin Ratio 0.7 L (1-2) SARS-CoV-2 RNA (AMINA) (NEGATIVE) Blood Type O POSITIVE Gel Antibody Screen Negative 12/01/19 Range/Units 11:40 WBC (3.98-10.04) K/mm3 RBC (3.98-5.22) M/mm3 Hgb (11.2-15.7) gm/dl Hct (34.1-44.9) % MCV (79.4-94.8) fl MCH (25.6-32.2) pg MCHC (32.2-35.5) g/dl RDW Std Deviation (36.4-46.3) fL Plt Count (182-369) K/mm3 MPV (9.4-12.3) fl Neut % (Auto) (34.0-71.1) % Lymph % (Auto) (19.3-51.7) % [place] % (Auto) (4.7-12.5) % Eos % (Auto) (0.7-5.8) Baso % (Auto) (0.1-1.2) % Neut # (Auto) (1.56-6.13) K/mm3 Lymph # (Auto) (1.18-3.74) K/mm3 [place] # (Auto) (0.24-0.36) K/mm3 Eos # (Auto) (0.04-0.36) K/mm3 Baso # (Auto) (0.01-0.08) K/mm3 Manual Slide Review Sodium (136-145) mEq/L Potassium (3.5-5.1) mEq/L Chloride (98-107) mEq/L Carbon Dioxide (21-32) mEq/L Anion Gap (5-15) BUN (7-18) mg/dL Creatinine (0.55-1.02) mg/dL Est Cr Clr Drug Dosing mL/min Estimated GFR (MDRD) (>60) mL/min BUN/Creatinine Ratio (14-18) Glucose (83-115) mg/dL Calcium (8.5-10.1) mg/dL Total Bilirubin (0.2-1.0) mg/dL AST (15-37) U/L ALT (14-59) U/L Alkaline Phosphatase (46-116) U/L Total Protein (6.4-8.2) g/dl Albumin (3.4-5.0) g/dl Globulin gm/dL Albumin/Globulin Ratio (1-2) SARS-CoV-2 RNA (AMINA) Negative (NEGATIVE) Blood Type Gel Antibody Screen Result Diagrams: 12/01/19 10:13 12/01/19 10:13 Sepsis Event Note - Evaluation Sepsis Screening Result: No Definite Risk - Focused Exam Vital Signs: Vital Signs Temp Pulse Resp BP Pulse Ox 12/01/19 09:55 36.6 C 64 20 83/68 L 93 L *Q Meaningful Use (ADM) - VTE Risk Assess *Q Each Risk Factor Represents 3 Points: Age 75 Years or Greater, History of DVT/PE, Positive lupus anticoagulant Total Score 3 Point Risk Factors: 9 - Problem List (1) Anemia SNOMED Code(s): 297507100 ICD Code: D64.9 - ANEMIA, UNSPECIFIED Status: Acute Current Visit: Yes Qualifiers: Anemia type: unspecified type Qualified Code(s): D64.9 - Anemia, unspecified (2) Rectal bleeding SNOMED Code(s): 29400300 ICD Code: K62.5 - HEMORRHAGE OF ANUS AND RECTUM Status: Acute Current Visit: Yes (3) Chronic renal insufficiency SNOMED Code(s): 976694357 ICD Code: N18.9 - CHRONIC KIDNEY DISEASE, UNSPECIFIED Status: Acute Current Visit: No Problem List Initiated/Reviewed/Updated: Yes Orders Last 24hrs: Active Orders 24 hr Category Date Time Status Patient Status [ADT] Routine ADT 12/01/19 13:07 Active EKG 12 Lead [EKG Documentation Completion] [RC] STAT Care 12/01/19 10:06 Acti ve Peripheral IV Care [RC] . DIRECTED Care 12/01/19 10:06 Active Sodium Chloride 0.9% [Normal Saline] 1,000 ml Med 12/01/19 10:15 Active IV ASDIRECTED Sodium Chloride 0.9% [Normal Saline] 1,000 ml Med 12/01/19 11:30 Active IV ONETIME Sodium Chloride 0.9% [Saline Flush] Med 12/01/19 10:05 Active 10 ml FLUSH ASDIRECTED PRN Peripheral IV Insertion Adult [OM.PC] Stat Oth 12/01/19 10:05 Ordered Medication Orders Sodium Chloride (Normal Saline) 1,000 mls @ 150 mls/hr IV ASDIRECTED LUCI Last Admin: 12/01/19 10:44 Dose: 150 mls/hr Documented by: JES Sodium Chloride (Normal Saline) 1,000 mls @ 999 mls/hr IV ONETIME LUCI Sodium Chloride (Saline Flush) 10 ml FLUSH ASDIRECTED PRN PRN Reason: Keep Vein Open Last Admin: 12/01/19 10:44 Dose: 10 ml Documented by: JES Assessment/Plan Comment:: 79 y/o lady with rectal bleeding after recent partial colonoscopy with placement of hemorrhoid bands - pt with dropping hemoglobin, mostly due to rectal bleeding, but also with abdominal wall hematomas from lovenox inections - hold lovenox until bleeding is controlled - resume all other home medications - will Decreased IVF to 100cc/hr NS and reevaluated BMP in am - trend Hg every 6 hours - SCDs, ambulate with assist. - High risk for DVT, but anticoagulation and PPX is CONTRAINDICATED due to the persistent bleeding and anemia Ese Mchugh MD General surgery - Mortality Measure Prognosis:: Good
[2019-12-01] MEDS: Sodium Chloride 0.9% 1,000 ML IV SCH (14:49)
[2019-12-01] MEDS: DICYCLOMINE 20 MG PO SCH ×2 (17:36→21:19)
[2019-12-01] MEDS: Potassium Chloride 20 MEQ Tab.ER **OWN MED PO SCH (17:40)
[2019-12-01] MEDS ORDERED: Albuterol/Ipratropium 3.0-0.5 MG/3 ML Neb Soln INH SCH (21:00)
[2019-12-01] MEDS ORDERED: MOMETASONE FUROATE INH SCH (21:00)
[2019-12-01] MEDS ORDERED: Albuterol 6.7 GM Inhaler INH PRN (21:00)
[2019-12-01] MEDS ORDERED: Pantoprazole 40 MG Tab.CR PO SCH (21:00)
[2019-12-01] MEDS ORDERED: Allopurinol 300 MG Tab **OWN MED PO SCH (21:00)
[2019-12-01] MEDS: Docusate Sodium 100 MG Cap **OWN MED PO SCH (21:18)
[2019-12-02] MEDS: Sodium Chloride 0.9% 1,000 ML IV SCH (03:36)
[2019-12-02] MEDS: DICYCLOMINE 20 MG PO SCH ×2 (08:39→12:21)
[2019-12-02] MEDS: Docusate Sodium 100 MG Cap **OWN MED PO SCH (08:39)
[2019-12-02] MEDS: Potassium Chloride 20 MEQ Tab.ER **OWN MED PO SCH (08:41)
[2019-12-02] MEDS ORDERED: FUROSEMIDE 80 MG PO SCH (09:00)
[2019-12-02] MEDS ORDERED: Pantoprazole 40 MG Tab.CR **OWN MED PO SCH (09:00)
[2019-12-02] MEDS ORDERED: Cholecalciferol (Vitamin D3) 25 MCG Tab **OWN MED PO SCH (09:00)
[2019-12-02] MEDS ORDERED: Non-Formulary Medication 1 Each (Potassium Chloride [Potassium Chloride] 20 MEQ) PO SCH (09:00)
[2019-12-02] MEDS ORDERED: Aspirin 81 MG Tab.EC **OWN MED PO SCH (09:00)
[2019-12-02] MEDS ORDERED: LISINOPRIL 40 MG **OWN MED PO SCH (09:00)
--- NOTE | 2019-12-02 10:07 | PCM.SURGPN ---
- General Info Date of Service: 12/02/19 Admission Diagnosis/Problem: Bleeding from anus Functional Status: Reports: Ambulating, Urinating, Other (had BM this am without blood, small amount of blood when wiping last night. Feels weak when up and ambulating). Denies: New Symptoms - Patient Data Vitals - Most Recent: Last Vital Signs Temp 36.4 C 12/02/19 08:04 Pulse 59 L 12/02/19 08:04 Resp 16 12/02/19 08:04 BP 127/64 12/02/19 08:04 Pulse Ox 100 12/02/19 08:04 Orthostatic Blood Pressure [ 91/38 Standing] Orthostatic Blood Pressure [ 99/56 Sitting] Orthostatic Blood Pressure [ 110/45 Supine] Weight - Most Recent: 75.795 kg I&O - Last 24 Hours: Intake & Output 12/01/19 12/02/19 12/02/19 22:59 06:59 14:59 Intake Total 1587 1281 Output Total 200 Balance 1587 1081 Lab Results Last 24 Hrs: Laboratory Results - last 24 hr 12/01/19 12/01/19 12/01/19 Range/Units 10:13 10:13 10:13 WBC 7.75 (3.98-10.04) K/mm3 RBC 3.87 L (3.98-5.22) M/mm3 Hgb 8.4 L (11.2-15.7) gm/dl Hct 28.4 L (34.1-44.9) % MCV 73.4 L (79.4-94.8) fl MCH 21.7 L (25.6-32.2) pg MCHC 29.6 L (32.2-35.5) g/dl RDW Std Deviation 57.0 H (36.4-46.3) fL Plt Count 283 (182-369) K/mm3 MPV 10.7 (9.4-12.3) fl Neut % (Auto) 52.9 (34.0-71.1) % Lymph % (Auto) 29.2 (19.3-51.7) % Crenshaw % (Auto) 14.1 H (4.7-12.5) % Eos % (Auto) 3.1 (0.7-5.8) Baso % (Auto) 0.4 (0.1-1.2) % Neut # (Auto) 4.11 (1.56-6.13) K/mm3 Lymph # (Auto) 2.26 (1.18-3.74) K/mm3 Crenshaw # (Auto) 1.09 H (0.24-0.36) K/mm3 Eos # (Auto) 0.24 (0.04-0.36) K/mm3 Baso # (Auto) 0.03 (0.01-0.08) K/mm3 Manual Slide Review Abnormal smear Sodium 140 (136-145) mEq/L Potassium 4.0 (3.5-5.1) mEq/L Chloride 106 (98-107) mEq/L Carbon Dioxide 26 (21-32) mEq/L Anion Gap 12.0 (5-15) BUN 32 H (7-18) mg/dL Creatinine 1.5 H (0.55-1.02) mg/dL Est Cr Clr Drug Dosing 27.81 mL/min Estimated GFR (MDRD) 34 (>60) mL/min BUN/Creatinine Ratio 21.3 H (14-18) Glucose 109 (83-115) mg/dL Calcium 9.6 (8.5-10.1) mg/dL Total Bilirubin 0.4 (0.2-1.0) mg/dL AST 15 (15-37) U/L ALT 16 (14-59) U/L Alkaline Phosphatase 61 (46-116) U/L Total Protein 6.4 (6.4-8.2) g/dl Albumin 2.6 L (3.4-5.0) g/dl Globulin 3.8 gm/dL Albumin/Globulin Ratio 0.7 L (1-2) SARS-CoV-2 RNA (AMINA) (NEGATIVE) Blood Type O POSITIVE Gel Antibody Screen Negative 12/01/19 12/01/19 12/02/19 Range/Units 11:40 18:10 00:10 WBC 7.57 7.48 (3.98-10.04) K/mm3 RBC 3.69 L 3.48 L (3.98-5.22) M/mm3 Hgb 7.9 L 7.5 L (11.2-15.7) gm/dl Hct 27.2 L 25.8 L (34.1-44.9) % MCV 73.7 L 74.1 L (79.4-94.8) fl MCH 21.4 L 21.6 L (25.6-32.2) pg MCHC 29.0 L 29.1 L (32.2-35.5) g/dl RDW Std Deviation 57.6 H 57.1 H (36.4-46.3) fL Plt Count 262 240 (182-369) K/mm3 MPV 10.3 9.8 (9.4-12.3) fl Neut % (Auto) 47.2 45.8 (34.0-71.1) % Lymph % (Auto) 37.3 37.7 (19.3-51.7) % Crenshaw % (Auto) 11.9 12.3 (4.7-12.5) % Eos % (Auto) 2.8 3.5 (0.7-5.8) Baso % (Auto) 0.7 0.4 (0.1-1.2) % Neut # (Auto) 3.58 3.43 (1.56-6.13) K/mm3 Lymph # (Auto) 2.82 2.82 (1.18-3.74) K/mm3 Crenshaw # (Auto) 0.90 H 0.92 H (0.24-0.36) K/mm3 Eos # (Auto) 0.21 0.26 (0.04-0.36) K/mm3 Baso # (Auto) 0.05 0.03 (0.01-0.08) K/mm3 Manual Slide Review Abnormal smear Abnormal smear Sodium (136-145) mEq/L Potassium (3.5-5.1) mEq/L Chloride (98-107) mEq/L Carbon Dioxide (21-32) mEq/L Anion Gap (5-15) BUN (7-18) mg/dL Creatinine (0.55-1.02) mg/dL Est Cr Clr Drug Dosing mL/min Estimated GFR (MDRD) (>60) mL/min BUN/Creatinine Ratio (14-18) Glucose (83-115) mg/dL Calcium (8.5-10.1) mg/dL Total Bilirubin (0.2-1.0) mg/dL AST (15-37) U/L ALT (14-59) U/L Alkaline Phosphatase (46-116) U/L Total Protein (6.4-8.2) g/dl Albumin (3.4-5.0) g/dl Globulin gm/dL Albumin/Globulin Ratio (1-2) SARS-CoV-2 RNA (AMINA) Negative (NEGATIVE) Blood Type Gel Antibody Screen 12/02/19 12/02/19 Range/Units 05:54 05:54 WBC 6.79 (3.98-10.04) K/mm3 RBC 3.46 L (3.98-5.22) M/mm3 Hgb 7.5 L (11.2-15.7) gm/dl Hct 25.9 L (34.1-44.9) % MCV 74.9 L (79.4-94.8) fl MCH 21.7 L (25.6-32.2) pg MCHC 29.0 L (32.2-35.5) g/dl RDW Std Deviation 57.8 H (36.4-46.3) fL Plt Count 259 (182-369) K/mm3 MPV 10.6 (9.4-12.3) fl Neut % (Auto) 45.9 (34.0-71.1) % Lymph % (Auto) 37.8 (19.3-51.7) % Crenshaw % (Auto) 12.8 H (4.7-12.5) % Eos % (Auto) 3.1 (0.7-5.8) Baso % (Auto) 0.4 (0.1-1.2) % Neut # (Auto) 3.11 (1.56-6.13) K/mm3 Lymph # (Auto) 2.57 (1.18-3.74) K/mm3 Crenshaw # (Auto) 0.87 H (0.24-0.36) K/mm3 Eos # (Auto) 0.21 (0.04-0.36) K/mm3 Baso # (Auto) 0.03 (0.01-0.08) K/mm3 Manual Slide Review Abnormal smear Sodium 140 (136-145) mEq/L Potassium 4.1 (3.5-5.1) mEq/L Chloride 109 H (98-107) mEq/L Carbon Dioxide 23 (21-32) mEq/L Anion Gap 12.1 (5-15) BUN 22 H (7-18) mg/dL Creatinine 1.1 H (0.55-1.02) mg/dL Est Cr Clr Drug Dosing 37.93 mL/min Estimated GFR (MDRD) 48 (>60) mL/min BUN/Creatinine Ratio 20.0 H (14-18) Glucose 95 (83-115) mg/dL Calcium 8.9 (8.5-10.1) mg/dL Total Bilirubin (0.2-1.0) mg/dL AST (15-37) U/L ALT (14-59) U/L Alkaline Phosphatase (46-116) U/L Total Protein (6.4-8.2) g/dl Albumin (3.4-5.0) g/dl Globulin gm/dL Albumin/Globulin Ratio (1-2) SARS-CoV-2 RNA (AMINA) (NEGATIVE) Blood Type Gel Antibody Screen Med Orders - Current: Current Medications Allopurinol (Zyloprim) 300 mg PO BEDTIME [facility] Last Admin: 12/01/19 21:20 Dose: 300 mg Documented by: Aspirin (Halfprin) 81 mg PO DAILY [facility] Last Admin: 12/02/19 08:39 Dose: 81 mg Documented by: Cholecalciferol (Vitamin D3) 25 mcg PO DAILY [facility] Last Admin: 12/02/19 08:43 Dose: 25 mcg Documented by: Docusate Sodium (Colace) 100 mg PO BID [facility] Last Admin: 12/02/19 08:39 Dose: 100 mg Documented by: Furosemide (Lasix) 40 mg PO DAILY [facility] Last Admin: 12/02/19 08:42 Dose: 40 mg Documented by: Sodium Chloride (Normal Saline) 1,000 mls @ 999 mls/hr IV ONETIME [facility] Last Admin: 12/02/19 03:34 Dose: 999 mls/hr Documented by: Sodium Chloride (Normal Saline) 1,000 mls @ 100 mls/hr IV ASDIRECTED [facility] Last Admin: 12/02/19 03:36 Dose: 100 mls/hr Documented by: Dicyclomine 20 Mg (Own Med) 0 mg PO QID [facility] Last Admin: 12/02/19 08:39 Dose: 20 mg Documented by: Lisinopril 40 Mg (Own Med) 0 each PO DAILY [facility] Last Admin: 12/02/19 08:42 Dose: 20 each Documented by: Rosuvastatin 40 Mg * (*Own Med) 0 mg PO BEDTIME [facility] Sertraline 100 Mg (Own Med) 0 each PO BEDTIME [facility] Pantoprazole Sodium (Protonix) 40 mg PO DAILY [facility] Last Admin: 12/02/19 08:43 Dose: 40 mg Documented by: Potassium Chloride (Klor-Con M20) 10 meq PO DAILY [facility] Last Admin: 12/02/19 08:41 Dose: 10 meq Documented by: Discontinued Medications Albuterol (Proventil Hfa) 0 gm INH BID PRN PRN Reason: Shortness of Breath Albuterol/Ipratropium (Duoneb 3.0-0.5 Mg/3 Ml) 3 ml INH BIDRT [facility] Sodium Chloride (Normal Saline) 1,000 mls @ 150 mls/hr IV ASDIRECTED [facility] Last Infusion: 12/01/19 14:00 Dose: 100 mls/hr Documented by: Non-Formulary Medication (Potassium Chloride [Potassium Chloride]) 20 meq PO DAILY [facility] Non-Formulary Medication (Mometasone Furoate [Asmanex Hfa]) 1 puff INH BID [facility] Pantoprazole Sodium (Protonix) 40 mg PO BID [facility] Sodium Chloride (Saline Flush) 10 ml FLUSH ASDIRECTED PRN PRN Reason: Keep Vein Open Last Admin: 12/01/19 10:44 Dose: 10 ml Documented by: - Exam General: Alert, Oriented HEENT: Pupils Equal, EOMI Neck: Supple Lungs: Normal Respiratory Effort GI/Abdominal Exam: Soft, Non-Tender, No Distention Sepsis Event Note - Evaluation Sepsis Screening Result: No Definite Risk - Focused Exam Vital Signs: Vital Signs Temp Pulse Resp BP Pulse Ox 12/02/19 08:04 36.4 C 59 L 16 127/64 100 12/02/19 03:44 36.6 C 59 L 20 127/58 L 99 12/02/19 00:43 36.7 C 55 L 18 140/49 L 97 - Problem List & Annotations (1) Anemia SNOMED Code(s): 459014811 Code(s): D64.9 - ANEMIA, UNSPECIFIED Status: Acute Current Visit: Yes Qualifiers: Anemia type: unspecified type Qualified Code(s): D64.9 - Anemia, unspecified (2) Rectal bleeding SNOMED Code(s): 31794026 Code(s): K62.5 - HEMORRHAGE OF ANUS AND RECTUM Status: Acute Current Visit: Yes (3) Chronic renal insufficiency SNOMED Code(s): 755876475 Code(s): N18.9 - CHRONIC KIDNEY DISEASE, UNSPECIFIED Status: Acute Current Visit: No - Problem List Review Problem List Initiated/Reviewed/Updated: Yes - My Orders Last 24 Hours: Active Orders 24 hr Category Date Time Status Patient Status [ADT] Routine ADT 12/01/19 13:07 Active Antiembolic Devices [RC] PER UNIT ROUTINE Care 12/01/19 16:24 Active Communication Order [RC] ASDIRECTED Care 12/01/19 21:00 Active Peripheral IV Care [RC] Q2HR Care 12/01/19 10:06 Active Up With Assistance [RC] BID Care 12/01/19 15:41 Active Clear Liquid Diet [DIET] Diet 12/01/19 Dinner Active CBC WITH AUTO DIFF [HEME] Q6H Lab 12/02/19 12:00 Ordered CBC WITH AUTO DIFF [HEME] Q6H Lab 12/02/19 18:00 Ordered CBC WITH AUTO DIFF [HEME] Q6H Lab 12/03/19 00:00 Ordered Aspirin [Halfprin] Med 12/02/19 09:00 Active 81 mg PO DAILY Cholecalciferol (Vitamin D3) [Vitamin D3] Med 12/02/19 09:00 Active 25 mcg PO DAILY Dicyclomine Med 12/01/19 17:00 Active 0 mg PO QID Docusate Sodium [Colace] Med 12/01/19 21:00 Active 100 mg PO BID Furosemide [Lasix] Med 12/02/19 09:00 Active 40 mg PO DAILY Non-Formulary Medication [NF Drug] Med 12/02/19 21:00 Active 0 each PO BEDTIME Non-Formulary Medication [NF Drug] Med 12/02/19 09:00 Active 0 each PO DAILY Pantoprazole [ProTONIX] Med 12/02/19 09:00 Active 40 mg PO DAILY Potassium Chloride [Klor-Con M20] Med 12/01/19 17:00 Active 10 meq PO DAILY Rosuvastatin Calcium [Crestor] Med 12/02/19 21:00 Active 0 mg PO BEDTIME Sodium Chloride 0.9% [Normal Saline] 1,000 ml Med 12/01/19 14:15 Active IV ASDIRECTED Sodium Chloride 0.9% [Normal Saline] 1,000 ml Med 12/01/19 11:30 Active IV ONETIME allopurinoL [Zyloprim] Med 12/01/19 21:00 Active 300 mg PO BEDTIME Peripheral IV Insertion Adult [OM.PC] Stat Oth 12/01/19 10:05 Ordered SCD [Sequential Compression Device] [OM.PC] Routine Oth 12/01/19 16:24 Ordered Resuscitation Status Routine Resus Stat 12/01/19 16:02 Ordered Medication Orders Allopurinol (Zyloprim) 300 mg PO BEDTIME [facility] Last Admin: 12/01/19 21:20 Dose: 300 mg Documented by: KALIE Aspirin (Halfprin) 81 mg PO DAILY [facility] Last Admin: 12/02/19 08:39 Dose: 81 mg Documented by: TARUN Cholecalciferol (Vitamin D3) 25 mcg PO DAILY [facility] Last Admin: 12/02/19 08:43 Dose: 25 mcg Documented by: TARUN Docusate Sodium (Colace) 100 mg PO BID [facility] Last Admin: 12/02/19 08:39 Dose: 100 mg Documented by: Admin: 12/01/19 21:18 Dose: 100 mg Documented by: KALIE Furosemide (Lasix) 40 mg PO DAILY [facility] Last Admin: 12/02/19 08:42 Dose: 40 mg Documented by: TARUN Sodium Chloride (Normal Saline) 1,000 mls @ 999 mls/hr IV ONETIME [facility] Last Admin: 12/02/19 03:34 Dose: 999 mls/hr Documented by: KALIE Sodium Chloride (Normal Saline) 1,000 mls @ 100 mls/hr IV ASDIRECTED [facility] Last Admin: 12/02/19 03:36 Dose: 100 mls/hr Documented by: Infusion: 12/02/19 00:49 Dose: 100 mls/hr Documented by: Admin: 12/01/19 14:49 Dose: 100 mls/hr Documented by: LEDA Dicyclomine 20 Mg (Own Med) 0 mg PO QID [facility] Last Admin: 12/02/19 08:39 Dose: 20 mg Documented by: Admin: 12/01/19 21:19 Dose: 20 mg Documented by: Admin: 12/01/19 17:36 Dose: 20 mg Documented by: JESENIA Lisinopril 40 Mg (Own Med) 0 each PO DAILY [facility] Last Admin: 12/02/19 08:42 Dose: 20 each Documented by: TARUN Rosuvastatin 40 Mg * (*Own Med) 0 mg PO BEDTIME [facility] Sertraline 100 Mg (Own Med) 0 each PO BEDTIME [facility] Pantoprazole Sodium (Protonix) 40 mg PO DAILY [facility] Last Admin: 12/02/19 08:43 Dose: 40 mg Documented by: TARUN Potassium Chloride (Klor-Con M20) 10 meq PO DAILY [facility] Last Admin: 12/02/19 08:41 Dose: 10 meq Documented by: Admin: 12/01/19 17:40 Dose: 10 meq Documented by: JESENIA - Assessment Assessment (Free Text/Narrative):: 79 y/o lady admitted with rectal bleeding. Bleeding stopped and pt doing well. - Plan Plan (Free Text/Narrative):: - no further bleeding episodes with Hg stabilized at 7.5 - plan to recheck one more level at 1200 today - will transfuse one unit of blood for symptomatic anemia with Hg. <8 in pt with cardiac history (has CAD) - continue to hold anticoagulation. Will address with Heme/Onc provider as outpatient - regular diet if pt has continued stable hemoglobin D/c home today if no change in status by afternoon Ese Mchugh MD General Surgery
--- NOTE | 2019-12-02 10:25 | PCM.DCSUM1 ---
Discharge Summary - Hospital Course HPI Initial Comments: The patient was admitted for rectal bleeding and monitoring of hemoglobin. She had stabilization after admission of hemoglobin and the rectal bleeding stopped after a few hours. She was discharged home on HOD 1. Diagnosis: Stroke: No Modified Tr[place] Scale: No Signif.Disability Despite Sympt.Able to Carry Out Usual Act./Duties Modified Tr[place]ull Scale Score: 1 - Discharge Data Discharge Date: 12/02/19 Discharge Disposition: Home, Self-Care 01 Condition: Good - Referral to Home Health Primary Care Physician: Shell Arambula MD - Discharge Diagnosis/Problem(s) (1) Anemia SNOMED Code(s): 947037765 ICD Code: D64.9 - ANEMIA, UNSPECIFIED Status: Acute Qualifiers: Anemia type: unspecified type Qualified Code(s): D64.9 - Anemia, unspecified (2) Rectal bleeding SNOMED Code(s): 06975414 ICD Code: K62.5 - HEMORRHAGE OF ANUS AND RECTUM Status: Acute (3) Chronic renal insufficiency SNOMED Code(s): 319897066 ICD Code: N18.9 - CHRONIC KIDNEY DISEASE, UNSPECIFIED Status: Acute - Patient Instructions Diet: Usual Diet as Tolerated Activity: As Tolerated Showering/Bathing: May Shower Notify Provider of: Fever, Increased Pain, Nausea and/or Vomiting - Discharge Plan *PRESCRIPTION DRUG MONITORING PROGRAM REVIEWED*: Not Applicable *COPY OF PRESCRIPTION DRUG MONITORING REPORT IN PATIENT CHRISTOPHE: Not Applicable Home Medications: Home Meds Albuterol/Ipratropium [DuoNeb 3.0-0.5 MG/3 ML] 3 ml INH BID PRN 10/16/18 [History] Aspirin 81 mg PO DAILY 10/16/18 [History] Dicyclomine [Bentyl] 20 mg PO QID 10/16/18 [History] Furosemide 40 mg PO DAILY 10/16/18 [History] Nitroglycerin 0.4 mg PO Q5M PRN MDD 3 doses 10/16/18 [History] Pantoprazole [ProTONIX] 40 mg PO DAILY 10/16/18 [History] Potassium Chloride 10 meq PO DAILY 10/16/18 [History] Sertraline [Zoloft] 50 mg PO BEDTIME 10/16/18 [History] allopurinoL [Zyloprim] 300 mg PO BEDTIME 10/16/18 [History] Albuterol [Ventolin HFA] 2 puff INH BID PRN 11/20/19 [History] Cholecalciferol (Vitamin D3) [Vitamin D3] 1,000 mg PO DAILY 11/20/19 [History] Docusate Sodium [Colace] 100 mg PO BID 11/20/19 [History] Mometasone Furoate [Asmanex Hfa] 1 puff INH BID 11/20/19 [History] Rosuvastatin Calcium [Crestor] 40 mg PO BEDTIME 11/20/19 [History] lisinopriL [Lisinopril] 20 mg PO DAILY 11/20/19 [History] Non-Formulary Medication [NF Drug] 0 each PO DAILY each 12/02/19 [Rx] Patient Handouts: Rectal Bleeding, [id number] Forms: ED Department Discharge Referrals: Ese Mchugh MD [Physician] - Shell Arambula MD [Primary Care Provider] - - Discharge Summary/Plan Comment DC Time >30 min.: No - Patient Data Vitals - Most Recent: Last Vital Signs Temp 36.4 C 12/02/19 08:04 Pulse 59 L 12/02/19 08:04 Resp 16 12/02/19 08:04 BP 127/64 12/02/19 08:04 Pulse Ox 100 12/02/19 08:04 Orthostatic Blood Pressure [ 91/38 Standing] Orthostatic Blood Pressure [ 99/56 Sitting] Orthostatic Blood Pressure [ 110/45 Supine] Weight - Most Recent: 75.795 kg I&O - Last 24 hours: Intake & Output 12/01/19 12/02/19 12/02/19 22:59 06:59 14:59 Intake Total 1587 1281 Output Total 200 Balance 1587 1081 Lab Results - Last 24 hrs: Laboratory Results - last 24 hr 12/01/19 12/01/19 12/01/19 Range/Units 10:13 10:13 10:13 WBC 7.75 (3.98-10.04) K/mm3 RBC 3.87 L (3.98-5.22) M/mm3 Hgb 8.4 L (11.2-15.7) gm/dl Hct 28.4 L (34.1-44.9) % MCV 73.4 L (79.4-94.8) fl MCH 21.7 L (25.6-32.2) pg MCHC 29.6 L (32.2-35.5) g/dl RDW Std Deviation 57.0 H (36.4-46.3) fL Plt Count 283 (182-369) K/mm3 MPV 10.7 (9.4-12.3) fl Neut % (Auto) 52.9 (34.0-71.1) % Lymph % (Auto) 29.2 (19.3-51.7) % Logan % (Auto) 14.1 H (4.7-12.5) % Eos % (Auto) 3.1 (0.7-5.8) Baso % (Auto) 0.4 (0.1-1.2) % Neut # (Auto) 4.11 (1.56-6.13) K/mm3 Lymph # (Auto) 2.26 (1.18-3.74) K/mm3 Logan # (Auto) 1.09 H (0.24-0.36) K/mm3 Eos # (Auto) 0.24 (0.04-0.36) K/mm3 Baso # (Auto) 0.03 (0.01-0.08) K/mm3 Manual Slide Review Abnormal smear Sodium 140 (136-145) mEq/L Potassium 4.0 (3.5-5.1) mEq/L Chloride 106 (98-107) mEq/L Carbon Dioxide 26 (21-32) mEq/L Anion Gap 12.0 (5-15) BUN 32 H (7-18) mg/dL Creatinine 1.5 H (0.55-1.02) mg/dL Est Cr Clr Drug Dosing 27.81 mL/min Estimated GFR (MDRD) 34 (>60) mL/min BUN/Creatinine Ratio 21.3 H (14-18) Glucose 109 (83-115) mg/dL Calcium 9.6 (8.5-10.1) mg/dL Total Bilirubin 0.4 (0.2-1.0) mg/dL AST 15 (15-37) U/L ALT 16 (14-59) U/L Alkaline Phosphatase 61 (46-116) U/L Total Protein 6.4 (6.4-8.2) g/dl Albumin 2.6 L (3.4-5.0) g/dl Globulin 3.8 gm/dL Albumin/Globulin Ratio 0.7 L (1-2) SARS-CoV-2 RNA (AMINA) (NEGATIVE) Blood Type O POSITIVE Gel Antibody Screen Negative Crossmatch See Detail 12/01/19 12/01/19 12/02/19 Range/Units 11:40 18:10 00:10 WBC 7.57 7.48 (3.98-10.04) K/mm3 RBC 3.69 L 3.48 L (3.98-5.22) M/mm3 Hgb 7.9 L 7.5 L (11.2-15.7) gm/dl Hct 27.2 L 25.8 L (34.1-44.9) % MCV 73.7 L 74.1 L (79.4-94.8) fl MCH 21.4 L 21.6 L (25.6-32.2) pg MCHC 29.0 L 29.1 L (32.2-35.5) g/dl RDW Std Deviation 57.6 H 57.1 H (36.4-46.3) fL Plt Count 262 240 (182-369) K/mm3 MPV 10.3 9.8 (9.4-12.3) fl Neut % (Auto) 47.2 45.8 (34.0-71.1) % Lymph % (Auto) 37.3 37.7 (19.3-51.7) % Logan % (Auto) 11.9 12.3 (4.7-12.5) % Eos % (Auto) 2.8 3.5 (0.7-5.8) Baso % (Auto) 0.7 0.4 (0.1-1.2) % Neut # (Auto) 3.58 3.43 (1.56-6.13) K/mm3 Lymph # (Auto) 2.82 2.82 (1.18-3.74) K/mm3 Logan # (Auto) 0.90 H 0.92 H (0.24-0.36) K/mm3 Eos # (Auto) 0.21 0.26 (0.04-0.36) K/mm3 Baso # (Auto) 0.05 0.03 (0.01-0.08) K/mm3 Manual Slide Review Abnormal smear Abnormal smear Sodium (136-145) mEq/L Potassium (3.5-5.1) mEq/L Chloride (98-107) mEq/L Carbon Dioxide (21-32) mEq/L Anion Gap (5-15) BUN (7-18) mg/dL Creatinine (0.55-1.02) mg/dL Est Cr Clr Drug Dosing mL/min Estimated GFR (MDRD) (>60) mL/min BUN/Creatinine Ratio (14-18) Glucose (83-115) mg/dL Calcium (8.5-10.1) mg/dL Total Bilirubin (0.2-1.0) mg/dL AST (15-37) U/L ALT (14-59) U/L Alkaline Phosphatase (46-116) U/L Total Protein (6.4-8.2) g/dl Albumin (3.4-5.0) g/dl Globulin gm/dL Albumin/Globulin Ratio (1-2) SARS-CoV-2 RNA (AMINA) Negative (NEGATIVE) Blood Type Gel Antibody Screen Crossmatch 12/02/19 12/02/19 Range/Units 05:54 05:54 WBC 6.79 (3.98-10.04) K/mm3 RBC 3.46 L (3.98-5.22) M/mm3 Hgb 7.5 L (11.2-15.7) gm/dl Hct 25.9 L (34.1-44.9) % MCV 74.9 L (79.4-94.8) fl MCH 21.7 L (25.6-32.2) pg MCHC 29.0 L (32.2-35.5) g/dl RDW Std Deviation 57.8 H (36.4-46.3) fL Plt Count 259 (182-369) K/mm3 MPV 10.6 (9.4-12.3) fl Neut % (Auto) 45.9 (34.0-71.1) % Lymph % (Auto) 37.8 (19.3-51.7) % Logan % (Auto) 12.8 H (4.7-12.5) % Eos % (Auto) 3.1 (0.7-5.8) Baso % (Auto) 0.4 (0.1-1.2) % Neut # (Auto) 3.11 (1.56-6.13) K/mm3 Lymph # (Auto) 2.57 (1.18-3.74) K/mm3 Logan # (Auto) 0.87 H (0.24-0.36) K/mm3 Eos # (Auto) 0.21 (0.04-0.36) K/mm3 Baso # (Auto) 0.03 (0.01-0.08) K/mm3 Manual Slide Review Abnormal smear Sodium 140 (136-145) mEq/L Potassium 4.1 (3.5-5.1) mEq/L Chloride 109 H (98-107) mEq/L Carbon Dioxide 23 (21-32) mEq/L Anion Gap 12.1 (5-15) BUN 22 H (7-18) mg/dL Creatinine 1.1 H (0.55-1.02) mg/dL Est Cr Clr Drug Dosing 37.93 mL/min Estimated GFR (MDRD) 48 (>60) mL/min BUN/Creatinine Ratio 20.0 H (14-18) Glucose 95 (83-115) mg/dL Calcium 8.9 (8.5-10.1) mg/dL Total Bilirubin (0.2-1.0) mg/dL AST (15-37) U/L ALT (14-59) U/L Alkaline Phosphatase (46-116) U/L Total Protein (6.4-8.2) g/dl Albumin (3.4-5.0) g/dl Globulin gm/dL Albumin/Globulin Ratio (1-2) SARS-CoV-2 RNA (AMINA) (NEGATIVE) Blood Type Gel Antibody Screen Crossmatch Med Orders - Current: Current Medications Allopurinol (Zyloprim) 300 mg PO BEDTIME [facility] Last Admin: 12/01/19 21:20 Dose: 300 mg Documented by: Aspirin (Halfprin) 81 mg PO DAILY [facility] Last Admin: 12/02/19 08:39 Dose: 81 mg Documented by: Cholecalciferol (Vitamin D3) 25 mcg PO DAILY [facility] Last Admin: 12/02/19 08:43 Dose: 25 mcg Documented by: Docusate Sodium (Colace) 100 mg PO BID [facility] Last Admin: 12/02/19 08:39 Dose: 100 mg Documented by: Furosemide (Lasix) 40 mg PO DAILY [facility] Last Admin: 12/02/19 08:42 Dose: 40 mg Documented by: Sodium Chloride (Normal Saline) 1,000 mls @ 999 mls/hr IV ONETIME [facility] Last Admin: 12/02/19 03:34 Dose: 999 mls/hr Documented by: Sodium Chloride (Normal Saline) 1,000 mls @ 100 mls/hr IV ASDIRECTED [facility] Last Admin: 12/02/19 03:36 Dose: 100 mls/hr Documented by: Dicyclomine 20 Mg (Own Med) 0 mg PO QID [facility] Last Admin: 12/02/19 08:39 Dose: 20 mg Documented by: Lisinopril 40 Mg (Own Med) 0 each PO DAILY [facility] Last Admin: 12/02/19 08:42 Dose: 20 each Documented by: Rosuvastatin 40 Mg * (*Own Med) 0 mg PO BEDTIME [facility] Sertraline 100 Mg (Own Med) 0 each PO BEDTIME [facility] Pantoprazole Sodium (Protonix) 40 mg PO DAILY [facility] Last Admin: 12/02/19 08:43 Dose: 40 mg Documented by: Potassium Chloride (Klor-Con M20) 10 meq PO DAILY [facility] Last Admin: 12/02/19 08:41 Dose: 10 meq Documented by: Discontinued Medications Albuterol (Proventil Hfa) 0 gm INH BID PRN PRN Reason: Shortness of Breath Albuterol/Ipratropium (Duoneb 3.0-0.5 Mg/3 Ml) 3 ml INH BIDRT [facility] Sodium Chloride (Normal Saline) 1,000 mls @ 150 mls/hr IV ASDIRECTED [facility] Last Infusion: 12/01/19 14:00 Dose: 100 mls/hr Documented by: Non-Formulary Medication (Potassium Chloride [Potassium Chloride]) 20 meq PO DAILY [facility] Non-Formulary Medication (Mometasone Furoate [Asmanex Hfa]) 1 puff INH BID [facility] Pantoprazole Sodium (Protonix) 40 mg PO BID [facility] Sodium Chloride (Saline Flush) 10 ml FLUSH ASDIRECTED PRN PRN Reason: Keep Vein Open Last Admin: 12/01/19 10:44 Dose: 10 ml Documented by:
[2019-12-02 12:23] VITALS: BP 139/68; PULSE 60
[2019-12-02] MEDS ORDERED: SERTRALINE 100 MG **OWN MED PO SCH (21:00)
[2019-12-02] MEDS ORDERED: ROSUVASTATIN 40 MG **OWN MED PO SCH (21:00)
== END 2019-12-02 14:50 | disposition home or self-care (01) ==
LOC: JD.ED 09:42 → JD.MS 13:07
PROVIDERS: ADMIT Surgery; ATTEND Surgery
DX: K62.5 Hemorrhage of anus and rectum (principal); D64.9 Anemia, unspecified; K57.30 Diverticulosis of large intestine without perforation or abscess without bleeding; E78.00 Pure hypercholesterolemia, unspecified; I25.10 Atherosclerotic heart disease of native coronary artery without angina pectoris; I50.9 Heart failure, unspecified; I13.0 Hypertensive heart and chronic kidney disease with heart failure and stage 1 through stage 4 chronic kidney disease, or unspecified chronic kidney disease; N18.30 Chronic kidney disease, stage 3 unspecified; E11.22 Type 2 diabetes mellitus with diabetic chronic kidney disease; E66.9 Obesity, unspecified; J44.9 Chronic obstructive pulmonary disease, unspecified; F41.9 Anxiety disorder, unspecified; F32.9 Major depressive disorder, single episode, unspecified; Z98.890 Other specified postprocedural states; Z20.828 Contact with and (suspected) exposure to other viral communicable diseases; Z88.0 Allergy status to penicillin; Z79.899 Other long term (current) drug therapy; Z79.82 Long term (current) use of aspirin; Z68.27 Body mass index [BMI] 27.0-27.9, adult
CPT/HCPCS: 36415; 80048; 80053; 85025; 86850; 86900; 86901; 86922; 93005; 99284; A9270; J7030; U0002; 93010; 96360; 96361

== ENCOUNTER 2020-02-16 11:01 | Inpatient (IN) | payer MEDICARE, MEDICAID ==
[2020-02-16] MEDS ORDERED: Sodium Chloride 0.9% 10 ML Syringe FLUSH PRN ×2 (11:27→11:57)
[2020-02-16] MEDS ORDERED: Ondansetron 4 MG/2 ML SDV IVPUSH ONE (11:43)
[2020-02-16] MEDS ORDERED: Sodium Chloride 0.9% 1,000 ML IV STA (11:43)
[2020-02-16] MEDS ORDERED: Diatrizoate Meglumine/Diatrizoate Sodium 37% 120 ML Bottle PO ONE (11:57)
[2020-02-16] MEDS ORDERED: Iopamidol 612 MG/ML 100 ML Bottle IVPUSH ONE (11:57)
--- NOTE | 2020-02-16 12:30 | EDM.PDOC ---
ED HPI GENERAL MEDICAL PROBLEM - General Chief Complaint: Abdominal Pain Stated Complaint: ABDOMINAL PAIN AND VOMITING Time Seen by Provider: 02/16/20 11:07 Source of Information: Reports: Patient, RN Notes Reviewed History Limitations: Reports: No Limitations - History of Present Illness INITIAL COMMENTS - FREE TEXT/NARRATIVE: Patient is a 79 year old female presenting to the ER with c/o a 3 days history of nausea, vomting, abdominal pain, headaches, body aches, nasal congestion, fatigue, and weakness. She describes the abdominal pain as intermittent and localized to the mid and left lower abdomen. She is able to keep liquids down but states that she vomits whenever she eats solid food. Denies SOB, chest pain, fever, chills or diarrhea. She has not had a BM for the last few day, but states that she is passing gas. She has a hx of GI bleed, but denies hematemesis or hematochezia. She c/o intermittent dizziness upon standing but denies syncope. Pt is not on blood thinners. Headache Pain Score (Numeric/FACES): 5 Lower Abdominal Pain Score (Numeric/FACES): 5 - Related Data Allergies Allergy/AdvReac Type Severity Reaction Status Date / Time Penicillins Allergy Severe Swelling Verified 02/16/20 11:23 latex Allergy Rash Verified 02/16/20 18:31 Home Meds: Home Meds Albuterol/Ipratropium [DuoNeb 3.0-0.5 MG/3 ML] 3 ml INH BID PRN 10/16/18 [History] Aspirin 81 mg PO DAILY 10/16/18 [History] Dicyclomine [Bentyl] 20 mg PO QID 10/16/18 [History] Furosemide 40 mg PO DAILY 10/16/18 [History] Nitroglycerin 0.4 mg PO Q5M PRN MDD 3 doses 10/16/18 [History] Pantoprazole [ProTONIX] 40 mg PO DAILY 10/16/18 [History] Potassium Chloride 10 meq PO DAILY 10/16/18 [History] Sertraline [Zoloft] 50 mg PO BEDTIME 10/16/18 [History] allopurinoL [Zyloprim] 300 mg PO BEDTIME 10/16/18 [History] Albuterol [Ventolin HFA] 2 puff INH BID PRN 10/13/20 [History] Cholecalciferol (Vitamin D3) [Vitamin D3] 1,000 mg PO DAILY 11/20/19 [History] Docusate Sodium [Colace] 100 mg PO BID 11/20/19 [History] Mometasone Furoate [Asmanex Hfa] 1 puff INH BID 11/20/19 [History] Rosuvastatin Calcium [Crestor] 40 mg PO BEDTIME 11/20/19 [History] lisinopriL [Lisinopril] 20 mg PO DAILY 11/20/19 [History] Past Medical History HEENT History: Reports: Impaired Vision Other HEENT History: wears eyeglasses Cardiovascular History: Reports: Angina, CAD, Heart Failure, High Cholesterol, Hypertension, Stents Other Cardiovascular History: carotid artery disease, ventricular bigeminy, bradycardia, arrhythmia, murmur, diastolic dysfunction, CHF, DVT, hypotension Respiratory History: Reports: COPD, Pneumonia, Recurrent Other Respiratory History: Has oxygen at home at night - 2 L per NC. Gastrointestinal History: Reports: GERD, GI Bleed, Helicobacter Pylori, Irritable Bowel Syndrome Genitourinary History: Reports: Chronic Renal Insuffiency Other Genitourinary History: renal disease, CKD III [employer] History: Reports: Other [employer] History: hysterectomy Musculoskeletal History: Reports: Arthritis, Back Pain, Chronic, Gout, Osteoarthritis, Osteoporosis Other Musculoskeletal History: Left sided sciatica, plantar fascia syndrome Neurological History: Reports: CVA, Neuropathy, Diabetic, Other (See Below) Other Neuro History: dizziness Psychiatric History: Reports: Anxiety, Depression Endocrine/Metabolic History: Reports: Diabetes, Type II, Obesity/BMI 30+ Hematologic History: Reports: Anemia, Anticoagulation Therapy, Blood Transfusion(s), Iron Deficiency, Other (See Below) Other Hematologic History: hypercalcemia, hyperkalemia Immunologic History: Reports: None Oncologic (Cancer) History: Reports: None Dermatologic History: Reports: Eczema Other Dermatologic History: eczema - Infectious Disease History Infectious Disease History: Reports: Influenza, RSV - Past Surgical History Head Surgeries/Procedures: Reports: None HEENT Surgical History: Reports: Cataract Surgery Cardiovascular Surgical History: Reports: Coronary Artery Stent, Percutaneous Transluminal Angioplasty Other Cardiovascular Surgeries/Procedures: Doctors have been keeping an eye on her left and right carotid - q6 months has them checked. Respiratory Surgical History: Reports: None GI Surgical History: Reports: Colonoscopy, Hernia Repair/Other Other GI Surgeries/Procedures: hemorhoidectomy Female Surgical History: Reports: Hysterectomy Other Female Surgeries/Procedures: Endocrine Surgical History: Reports: None Neurological Surgical History: Reports: None Musculoskeletal Surgical History: Reports: Carpal Tunnel Oncologic Surgical History: Reports: None Social & Family History - Family History Family Medical History: No Pertinent Family History Cardiac: Reports: High Cholesterol, Hypertension : Reports: Renal Disease/Insufficiency Endocrine/Metabolic: Reports: Diabetes, Type I, Diabetes, type II Oncologic: Reports: Bone, Lung - Tobacco Use Tobacco Use Status *Q: Former Tobacco User Used Tobacco, but Quit: Yes Month/Year Tobacco Last Used: 15 yr - Caffeine Use Caffeine Use: Reports: Coffee Other Caffeine Use: cup of coffee every morning - Recreational Drug Use Recreational Drug Use: No - Living Situation & Occupation Living situation: Reports: , Alone Occupation: Retired ED ROS GENERAL - Review of Systems Review Of Systems: See Below Constitutional: Reports: Weakness, Fatigue, Decreased Appetite. Denies: Fever, Chills HEENT: Reports: No Symptoms Respiratory: Reports: Cough. Denies: Shortness of Breath, Pleuritic Chest Pain Cardiovascular: Reports: Lightheadedness. Denies: Chest Pain, Dyspnea on Exertion, Syncope Endocrine: Reports: No Symptoms GI/Abdominal: Reports: Abdominal Pain, Decreased Appetite, Nausea, Vomiting. Denies: Black Stool, Bloody Stool, Diarrhea, Hematemesis, Hematochezia : Reports: No Symptoms Musculoskeletal: Reports: Other (generalized body aches) Skin: Reports: No Symptoms Neurological: Reports: Dizziness, Headache. Denies: Confusion Psychiatric: Reports: No Symptoms Hematologic/Lymphatic: Reports: No Symptoms Immunologic: Reports: No Symptoms ED EXAM, GENERAL - Physical Exam Exam: See Below Exam Limited By: No Limitations General Appearance: Alert, WD/WN, No Apparent Distress Throat/Mouth: Normal Inspection, Normal Lips, Normal Teeth, Normal Gums, Normal Oropharynx, Normal Voice, No Airway Compromise Respiratory/Chest: No Respiratory Distress, Lungs Clear, Normal Breath Sounds, No Accessory Muscle Use, Chest Non-Tender Cardiovascular: Normal Peripheral Pulses, Regular Rate, Rhythm, No Edema, No Gal lop, No JVD, No Murmur, No Rub GI/Abdominal: Normal Bowel Sounds, Soft, No Organomegaly, No Distention, No Abnormal Bruit, No Mass, Tender (LLQ and mid-lower ) Rectal (Female) Exam: Normal Exam, Normal Rectal Tone, Other (No stool in the rectal vault. Only a very small "speck" of stool was able to be used for hemoccult. This did not show any obvious blood with guaic testing.) Neurological: Alert, Oriented, CN II-XII Intact, Normal Cognition, Normal Gait, Normal Reflexes, No Motor/Sensory Deficits Psychiatric: Normal Affect, Normal Mood Skin Exam: Warm, Dry, Intact, No Rash, Pallor #1 Interpretation EKG Date: 02/16/20 Time: 11:51 Rhythm: Other (Ventricular bigeminy) Rate (Beats/Min): 73 [place]: Normal P-Wave: Present QRS: Normal ST-T: Normal QT: Normal Course - Vital Signs Last Recorded V/S: Last Vital Signs Temp 97.7 F 02/16/20 18:00 Pulse 59 L 02/16/20 16:28 Resp 16 02/16/20 16:28 BP 140/58 L 02/16/20 16:28 Pulse Ox 97 02/16/20 17:28 Orthostatic Blood Pressure [ 93/75 Standing] Orthostatic Blood Pressure [ 71/59 Sitting] Orthostatic Blood Pressure [ 134/72 Supine] - Orders/Labs/Meds Orders: Active Orders 24 hr Category Date Time Status Orthostatic Vital Signs [RC] ASDIRECTED Care 02/16/20 11:28 Active RED BLOOD CELLS LP [BBK] Stat Lab 02/16/20 12:46 Results TYPE AND SCREEN [BBK] Stat Lab 02/16/20 12:46 Results UA W/MICROSCOPIC [URIN] Stat Lab 02/16/20 11:28 Ordered Sodium Chloride 0.9% [Saline Flush] Med 02/16/20 11:27 Active 10 ml FLUSH ASDIRECTED PRN Sodium Chloride 0.9% [Saline Flush] Med 02/16/20 11:57 Active 10 ml FLUSH ONETIME PRN Peripheral IV Insertion Adult [OM.PC] Stat Oth 02/16/20 11:28 Ordered Transfuse PRBC [Transfuse Red Blood Cells] [COMM] Oth 02/16/20 14:05 Ordered Routine Medication Orders Acetaminophen (Tylenol) 650 mg PO Q4H PRN PRN Reason: Pain (Mild 1-3)/fever Acetaminophen (Tylenol) 650 mg RECTAL Q4H PRN PRN Reason: Pain (mild 1-3) Sodium Chloride (Normal Saline) 1,000 mls @ 125 mls/hr IV ASDIRECTED LUCI Pantoprazole Sodium (Protonix Iv) 40 mg IVPUSH Q12H LUCI Sodium Chloride (Saline Flush) 10 ml FLUSH ASDIRECTED PRN PRN Reason: Keep Vein Open Last Admin: 02/16/20 12:11 Dose: 10 ml Documented by: LENARD Sodium Chloride (Saline Flush) 10 ml FLUSH ONETIME PRN PRN Reason: IV FLUSH Last Admin: 02/16/20 14:25 Dose: 10 ml Documented by: LENARD Labs: Laboratory Tests 02/16/20 02/16/20 02/16/20 Range/Units 12:05 12:46 12:46 WBC 10.63 H (3.98-10.04) K/mm3 RBC 2.55 L (3.98-5.22) M/mm3 Hgb 4.6 L* D (11.2-15.7) gm/dl Hct 17.8 L (34.1-44.9) % MCV 69.8 L D (79.4-94.8) fl MCH 18.0 L (25.6-32.2) pg MCHC 25.8 L (32.2-35.5) g/dl RDW Std Deviation 43.1 (36.4-46.3) fL Plt Count 410 H D (182-369) K/mm3 MPV 9.3 L (9.4-12.3) fl Neut % (Auto) 58.7 (34.0-71.1) % Lymph % (Auto) 32.9 (19.3-51.7) % [place] % (Auto) 7.4 (4.7-12.5) % Eos % (Auto) 0.4 L (0.7-5.8) Baso % (Auto) 0.3 (0.1-1.2) % Neut # (Auto) 6.24 H (1.56-6.13) K/mm3 Lymph # (Auto) 3.50 (1.18-3.74) K/mm3 [place] # (Auto) 0.79 H (0.24-0.36) K/mm3 Eos # (Auto) 0.04 (0.04-0.36) K/mm3 Baso # (Auto) 0.03 (0.01-0.08) K/mm3 Manual Slide Review Abnormal smear PT (9.7-12.0) SECONDS INR Sodium 141 (136-145) mEq/L Potassium 3.9 (3.5-5.1) mEq/L Chloride 104 (98-107) mEq/L Carbon Dioxide 24 (21-32) mEq/L Anion Gap 16.9 H (5-15) BUN 36 H (7-18) mg/dL Creatinine 1.6 H (0.55-1.02) mg/dL Est Cr Clr Drug Dosing 26.08 mL/min Estimated GFR (MDRD) 31 (>60) mL/min BUN/Creatinine Ratio 22.5 H (14-18) Glucose 121 H (83-115) mg/dL Calcium 10.3 H (8.5-10.1) mg/dL Magnesium (1.8-2.4) mg/dl Iron (50-170) ug/dL TIBC (100-400) ug/dL % Saturation (20-55) % Transferrin (202-364) mg/dL Ferritin (8-252) ng/ml Total Bilirubin 0.4 (0.2-1.0) mg/dL AST 11 L (15-37) U/L ALT 13 L (14-59) U/L Alkaline Phosphatase 59 (46-116) U/L Troponin I < 0.017 (0.00-0.056) ng/mL C-Reactive Protein 0.6 (<1.0) mg/dL Total Protein 6.5 (6.4-8.2) g/dl Albumin 2.8 L (3.4-5.0) g/dl Globulin 3.7 gm/dL Albumin/Globulin Ratio 0.8 L (1-2) Lipase 65 L (73-393) U/L SARS-CoV-2 RNA (AMINA) Negative (NEGATIVE) Blood Type Gel Antibody Screen Crossmatch 02/16/20 02/16/20 02/16/20 Range/Units 12:46 12:46 12:46 WBC (3.98-10.04) K/mm3 RBC (3.98-5.22) M/mm3 Hgb (11.2-15.7) gm/dl Hct (34.1-44.9) % MCV (79.4-94.8) fl MCH (25.6-32.2) pg MCHC (32.2-35.5) g/dl RDW Std Deviation (36.4-46.3) fL Plt Count (182-369) K/mm3 MPV (9.4-12.3) fl Neut % (Auto) (34.0-71.1) % Lymph % (Auto) (19.3-51.7) % [place] % (Auto) (4.7-12.5) % Eos % (Auto) (0.7-5.8) Baso % (Auto) (0.1-1.2) % Neut # (Auto) (1.56-6.13) K/mm3 Lymph # (Auto) (1.18-3.74) K/mm3 [place] # (Auto) (0.24-0.36) K/mm3 Eos # (Auto) (0.04-0.36) K/mm3 Baso # (Auto) (0.01-0.08) K/mm3 Manual Slide Review PT (9.7-12.0) SECONDS INR Sodium (136-145) mEq/L Potassium (3.5-5.1) mEq/L Chloride (98-107) mEq/L Carbon Dioxide (21-32) mEq/L Anion Gap (5-15) BUN (7-18) mg/dL Creatinine (0.55-1.02) mg/dL Est Cr Clr Drug Dosing mL/min Estimated GFR (MDRD) (>60) mL/min BUN/Creatinine Ratio (14-18) Glucose (83-115) mg/dL Calcium (8.5-10.1) mg/dL Magnesium 1.9 (1.8-2.4) mg/dl Iron 9 L (50-170) ug/dL TIBC 405 H (100-400) ug/dL % Saturation 2 L (20-55) % Transferrin 324 (202-364) mg/dL Ferritin (8-252) ng/ml Total Bilirubin (0.2-1.0) mg/dL AST (15-37) U/L ALT (14-59) U/L Alkaline Phosphatase (46-116) U/L Troponin I (0.00-0.056) ng/mL C-Reactive Protein (<1.0) mg/dL Total Protein (6.4-8.2) g/dl Albumin (3.4-5.0) g/dl Globulin gm/dL Albumin/Globulin Ratio (1-2) Lipase (73-393) U/L SARS-CoV-2 RNA (AMINA) (NEGATIVE) Blood Type O POSITIVE Gel Antibody Screen Negative Crossmatch See Detail 02/16/20 02/16/20 Range/Units 12:46 12:46 WBC (3.98-10.04) K/mm3 RBC (3.98-5.22) M/mm3 Hgb (11.2-15.7) gm/dl Hct (34.1-44.9) % MCV (79.4-94.8) fl MCH (25.6-32.2) pg MCHC (32.2-35.5) g/dl RDW Std Deviation (36.4-46.3) fL Plt Count (182-369) K/mm3 MPV (9.4-12.3) fl Neut % (Auto) (34.0-71.1) % Lymph % (Auto) (19.3-51.7) % [place] % (Auto) (4.7-12.5) % Eos % (Auto) (0.7-5.8) Baso % (Auto) (0.1-1.2) % Neut # (Auto) (1.56-6.13) K/mm3 Lymph # (Auto) (1.18-3.74) K/mm3 [place] # (Auto) (0.24-0.36) K/mm3 Eos # (Auto) (0.04-0.36) K/mm3 Baso # (Auto) (0.01-0.08) K/mm3 Manual Slide Review PT 23.8 H (9.7-12.0) SECONDS INR 2.26 Sodium (136-145) mEq/L Potassium (3.5-5.1) mEq/L Chloride (98-107) mEq/L Carbon Dioxide (21-32) mEq/L Anion Gap (5-15) BUN (7-18) mg/dL Creatinine (0.55-1.02) mg/dL Est Cr Clr Drug Dosing mL/min Estimated GFR (MDRD) (>60) mL/min BUN/Creatinine Ratio (14-18) Glucose (83-115) mg/dL Calcium (8.5-10.1) mg/dL Magnesium (1.8-2.4) mg/dl Iron (50-170) ug/dL TIBC (100-400) ug/dL % Saturation (20-55) % Transferrin (202-364) mg/dL Ferritin 8 (8-252) ng/ml Total Bilirubin (0.2-1.0) mg/dL AST (15-37) U/L ALT (14-59) U/L Alkaline Phosphatase (46-116) U/L Troponin I (0.00-0.056) ng/mL C-Reactive Protein (<1.0) mg/dL Total Protein (6.4-8.2) g/dl Albumin (3.4-5.0) g/dl Globulin gm/dL Albumin/Globulin Ratio (1-2) Lipase (73-393) U/L SARS-CoV-2 RNA (AMINA) (NEGATIVE) Blood Type Gel Antibody Screen Crossmatch Meds: Medications Generic Name Dose Route Start Last Admin Trade Name Freq PRN Reason Stop Dose Admin Acetaminophen 650 mg 02/16/20 17:28 Tylenol PO Q4H PRN Pain (Mild 1-3)/fever Acetaminophen 650 mg 02/16/20 17:28 Tylenol RECTAL Q4H PRN Pain (mild 1-3) Sodium Chloride 1,000 mls @ 125 mls/hr 02/16/20 17:30 Normal Saline IV ASDIRECTED LUCI Pantoprazole Sodium 40 mg 02/17/20 05:00 Protonix Iv IVPUSH Q12H LUCI Sodium Chloride 10 ml 02/16/20 11:27 02/16/20 12:11 Saline Flush FLUSH 10 ml ASDIRECTED PRN Administration Keep Vein Open Sodium Chloride 10 ml 02/16/20 11:57 02/16/20 14:25 Saline Flush FLUSH 10 ml ONETIME PRN Administration IV FLUSH Discontinued Medications Generic Name Dose Route Start Last Admin Trade Name Freq PRN Reason Stop Dose Admin Sodium Chloride 1,000 mls @ 999 mls/hr 02/16/20 11:43 02/16/20 12:10 Normal Saline IV 02/16/20 12:43 150 mls/hr NOW STA Administration Phytonadione 10 mg/ Sodium 51 mls @ 100 mls/hr 02/16/20 16:04 Chloride IV 02/16/20 16:34 NOW ONE Ondansetron HCl 4 mg 02/16/20 11:43 02/16/20 12:11 Zofran IVPUSH 02/16/20 11:44 4 mg ONETIME ONE Administration Pantoprazole Sodium 80 mg 02/16/20 16:09 Protonix Iv IVPUSH 02/16/20 16:10 BOLUS ONE - Re-Assessments/Exams Free Text/Narrative Re-Assessment/Exam: Patient is a 79-year-old female presenting to the emergency department with complaints of a 3-day history of nausea, vomiting, intermittent lower and left lower quadrant abdominal pain, headache, dizziness upon standing, generalized body aches, fatigue, weakness occasional cough, nasal congestion. She has been able to keep fluids down, but states anytime she eats she vomits. She denies diarrhea. States she has not had a bowel movement for 2 to 3 days. She is still passing gas. She has a history of GI bleeds but denies hematemesis or hematochezia. She is not on blood thinners. She has had no chest pain or shortness of breath. Denies any known sick contacts. Vital signs in triage are stable. Blood pressure 96.7, pulse 66, blood pressure 116/55, respiratory rate 15, oxygen 98% on room air. I have ordered routine blood work, 1 hour Covid test, CT scan of abdomen pelvis with contrast, EKG, chest x-ray, urinalysis and orthostatic vital signs. Pending results of orthostatic vital signs, will start NS at 150 mils per hour. I ordered Zofran 4 mg IV for nausea. Patient denies a need for pain medications at this time. 02/16/20 12:45 Was found to be orthostatic. Blood pressure went from 134/72 lying to 71/59 sitting and 93/75 standing. Upon standing, she did become pale and nauseated. I have ordered for her IV fluids to be increased to a bolus rate. 02/16/20 13:08 Patient's hemoglobin is found to be low at 4.6. I have ordered type and screen and 3 units of packed RBCs. Remainder of lab results are pending. Rectal exam completed. There was no stool in the rectal vault. Only a very small "speck" of stool was able to be used for hemoccult. This did not show any obvious blood with guaic testing. Further testing may be needed if/when patient has a bowel movement. 02/16/20 14:38 Hematology was significant for WBC minimally elevated at 10.63, hemoglobin low at 4.6, hematocrit 17.8, MCV 69.8, platelet 410, and a gap 16.9, BUN 36, creatinine 1.6 with a GFR of 31. Remainder of work-up was grossly unremarkable. Covid was negative. Urinalysis has not been collected thus far as pt has not voided. Case discussed with hospitalist, Dr. Hughes. He was initially concerned that we did not have a source for the blood loss and that he was not comfortable admitting. Case discussed with Dr. Sadler. No additional work-up recommended, other than possibly adding iron studies; however, this would only delay transfer. Called and spoke with the hospitalist at [facility], Dr. Norris. He accepted the pt for transfer. Dr. Monreal called back and stated that he would accept the pt. Discussed with pt and her daughter. They would prefer to stay here. Pt will be admitted for acute anemia. First unit of PRBCs infusing. I have ordered iron studies and PT/INR to be added onto the original blood draw. 02/16/20 15:29 I was notified by nursing staff that patient is on the commode having a bowel movement. Stool was loose, darkish in color but not black or bloody. Hemoccult was repeated and it was grossly positive. Dr. Monreal updated. Departure - Departure Time of Disposition: 14:38 Disposition: Admitted As Inpatient 67 Condition: Good Clinical Impression: Acute GI bleeding Anemia Qualifiers: Anemia type: unspecified type Qualified Code(s): D64.9 - Anemia, unspecified - Discharge Information Sepsis Event Note (ED) - Evaluation Sepsis Screening Result: No Definite Risk - Focused Exam Vital Signs: Vital Signs Temp Temp Pulse Resp BP Pulse Ox 02/16/20 14:53 97.7 F 69 16 144/50 H 02/16/20 14:38 97 F 68 16 147/69 H 97 02/16/20 14:24 97.8 F 62 16 120/60 99 02/16/20 11:27 96.7 F L 66 15 116/55 L 98 - My Orders Last 24 Hours: My Active Orders 02/16/20 11:27 Sodium Chloride 0.9% [Saline Flush] 10 ml FLUSH ASDIRECTED PRN 02/16/20 11:28 Orthostatic Vital Signs [RC] ASDIRECTED UA W/MICROSCOPIC [URIN] Stat Peripheral IV Insertion Adult [OM.PC] Stat 02/16/20 11:57 Sodium Chloride 0.9% [Saline Flush] 10 ml FLUSH ONETIME PRN 02/16/20 12:46 RED BLOOD CELLS LP [BBK] Stat TYPE AND SCREEN [BBK] Stat 02/16/20 14:05 Transfuse PRBC [Transfuse Red Blood Cells] [COMM] Routine - Assessment/Plan Last 24 Hours: My Active Orders 02/16/20 11:27 Sodium Chloride 0.9% [Saline Flush] 10 ml FLUSH ASDIRECTED PRN 02/16/20 11:28 Orthostatic Vital Signs [RC] ASDIRECTED UA W/MICROSCOPIC [URIN] Stat Peripheral IV Insertion Adult [OM.PC] Stat 02/16/20 11:57 Sodium Chloride 0.9% [Saline Flush] 10 ml FLUSH ONETIME PRN 02/16/20 12:46 RED BLOOD CELLS LP [BBK] Stat TYPE AND SCREEN [BBK] Stat 02/16/20 14:05 Transfuse PRBC [Transfuse Red Blood Cells] [COMM] Routine
--- NOTE | 2020-02-16 14:04 | CT ---
CT abdomen and pelvis Technique: Multiple axial sections were obtained from above the dome of the diaphragm inferiorly through the pubic symphysis. Intravenous contrast was not utilized. Oral contrast has been given. Comparison: Prior CT abdomen and pelvis study of 0 03/09/12. Findings: Visualized lung bases show nothing acute. Noncontrast appearance of the liver shows no discrete abnormality. Spleen appears normal in size. Distal thoracic aorta is mildly prominent at approximately 3.8 cm. Moderately large hiatal hernia is noted. Abdominal aorta shows diffuse atherosclerotic calcification without focal aneurysm. Adrenal glands show no nodule. Vascular calcification is seen within both kidneys. No ureteral dilatation or ureteral stone is appreciated. No retroperitoneal adenopathy or mesenteric abnormalities are seen. Pancreas is somewhat atrophied but shows no discrete abnormality. There is calcification being seen within the wall of the gallbladder. Appendix is seen which is normal in size. No pelvic mass or adenopathy is appreciated. Diverticuli are noted within the sigmoid colon as well as several diverticuli within the descending colon. Multiple low density areas are noted within the abdominal wall compatible with previous subcutaneous injections. Bone window settings were reviewed which show scattered degenerative change within the spine. No definite acute abnormality is seen within the osseous system. Impression: 1. Numerous findings as noted above. 2. Nothing acute is definitely appreciated on CT study of the abdomen and pelvis. Diagnostic code #2
--- NOTE | 2020-02-16 14:25 | CR ---
Chest: Portable view of the chest was obtained. Comparison: Prior chest x-ray of 10/23/18. Heart is enlarged. Hiatal hernia is noted. Tortuous thoracic aorta is seen. Lungs are clear with no acute parenchymal change. Bony structures are grossly intact. Impression: 1. Nothing acute is appreciated on portable chest x-ray. Diagnostic code #2
[2020-02-16] MEDS ORDERED: Phytonadione 10 MG in Sodium Chloride 0.9% 50 ML IV ONE (16:04)
[2020-02-16] MEDS ORDERED: Pantoprazole 40 MG Vial IVPUSH ONE (16:09)
[2020-02-16] MEDS ORDERED: Acetaminophen 325 MG Tab PO PRN (17:28)
[2020-02-16] MEDS ORDERED: Acetaminophen 650 MG Supp RECTAL PRN (17:28)
[2020-02-16] MEDS ORDERED: Sodium Chloride 0.9% 1,000 ML IV SCH (17:30)
--- NOTE | 2020-02-16 19:41 | PCM.HP.2 ---
H&P History of Present Illness - General Date of Service: 02/16/20 Admit Problem/Dx: Admission Diagnosis/Problem Admission Diagnosis/Problem Anemia - History of Present Illness Initial Comments - Free Text/Narative: 79-year-old female who presented to the emergency department with complaints of nausea, vomiting, abdominal pain, headaches, body aches, nasal congestion, fatigue and weakness for the last 3 days. Patient states that she stopped taking her warfarin a few days ago. Her last INR she states was somewhere between 4 and 5. She states she has not had a bowel movement in the last couple of days. Rectal exam done in the emergency department showed no stool in the rectal vault. Hemoglobin was performed which was 4.6 and right before transfer to the floor she did have a small stool that was positive for Hemoccult. She does complain of some dizziness especially with standing and walking. She she was admitted with lower GI bleed at the end of last year after having a partial colonoscopy with Dr. Caro. Patient was crossed and typed for 3 units of packed red blood cells in the emergency department. INR was 2.26 on admission. She was orthostatic in the emergency department. Headache Pain Score (Numeric/FACES): 5 Lower Abdominal Pain Score (Numeric/FACES): 5 - Related Data Allergies/Adverse Reactions: Allergies Allergy/AdvReac Type Severity Reaction Status Date / Time Penicillins Allergy Severe Swelling Verified 02/16/20 11:23 latex Allergy Rash Verified 02/16/20 18:31 Home Medications: Home Meds Albuterol/Ipratropium [DuoNeb 3.0-0.5 MG/3 ML] 3 ml INH BID PRN 10/16/18 [History] Aspirin 81 mg PO DAILY 10/16/18 [History] Dicyclomine [Bentyl] 20 mg PO QID 10/16/18 [History] Furosemide 40 mg PO DAILY 10/16/18 [History] Nitroglycerin 0.4 mg PO Q5M PRN MDD 3 doses 10/16/18 [History] Pantoprazole [ProTONIX] 40 mg PO DAILY 10/16/18 [History] Potassium Chloride 10 meq PO DAILY 10/16/18 [History] Sertraline [Zoloft] 50 mg PO BEDTIME 10/16/18 [History] allopurinoL [Zyloprim] 300 mg PO BEDTIME 10/16/18 [History] Albuterol [Ventolin HFA] 2 puff INH BID PRN 11/20/19 [History] Cholecalciferol (Vitamin D3) [Vitamin D3] 1,000 mg PO DAILY 11/20/19 [History] Docusate Sodium [Colace] 100 mg PO BID 11/20/19 [History] Mometasone Furoate [Asmanex Hfa] 1 puff INH BID 11/20/19 [History] Rosuvastatin Calcium [Crestor] 40 mg PO BEDTIME 11/20/19 [History] lisinopriL [Lisinopril] 20 mg PO DAILY 11/20/19 [History] Past Medical History HEENT History: Reports: Cataract, Glaucoma, Impaired Vision Other HEENT History: wears eyeglasses Cardiovascular History: Reports: Angina, CAD, Heart Failure, High Cholesterol, Hypertension, Stents Other Cardiovascular History: carotid artery disease, ventricular bigeminy, bradycardia, arrhythmia, murmur, diastolic dysfunction, CHF, DVT, hypotension Respiratory History: Reports: Asthma, COPD, Pneumonia, Recurrent Other Respiratory History: Has oxygen at home at night - 1.5 L per NC. Gastrointestinal History: Reports: GERD, GI Bleed, Hemorrhoids, Helicobacter Pylori, Hiatal Hernia, Irritable Bowel Syndrome Genitourinary History: Reports: Chronic Renal Insuffiency Other Genitourinary History: renal disease, CKD III [employer] History: Reports: Other OB/BYN History: hysterectomy Musculoskeletal History: Reports: Arthritis, Back Pain, Chronic, Gout, Osteoarthritis, Osteoporosis Other Musculoskeletal History: Left sided sciatica, plantar fascia syndrome Neurological History: Reports: CVA, Neuropathy, Diabetic, Other (See Below) Other Neuro History: dizziness Psychiatric History: Reports: Anxiety, Depression Endocrine/Metabolic History: Reports: Diabetes, Type II, Obesity/BMI 30+ Hematologic History: Reports: Anemia, Anticoagulation Therapy, Blood Transfusion(s), Iron Deficiency, Other (See Below) Other Hematologic History: hypercalcemia, hyperkalemia Immunologic History: Reports: None Oncologic (Cancer) History: Reports: None Dermatologic History: Reports: Eczema Other Dermatologic History: eczema - Infectious Disease History Infectious Disease History: Reports: Influenza, RSV - Past Surgical History Head Surgeries/Procedures: Reports: None HEENT Surgical History: Reports: Cataract Surgery, Eye Surgery Other HEENT Surgeries/Procedures: Pt. has history of cataract surgery. Cardiovascular Surgical History: Reports: Coronary Artery Stent, Percutaneous Transluminal Angioplasty Other Cardiovascular Surgeries/Procedures: Doctors have been keeping an eye on her left and right carotid - q6 months has them checked. Respiratory Surgical History: Reports: None GI Surgical History: Reports: Colonoscopy, Hernia Repair/Other Other GI Surgeries/Procedures: hemorhoidectomy Female Surgical History: Reports: Hysterectomy Other Female Surgeries/Procedures: Endocrine Surgical History: Reports: None Neurological Surgical History: Reports: None Musculoskeletal Surgical History: Reports: Carpal Tunnel Oncologic Surgical History: Reports: None Social & Family History - Family History Family Medical History: No Pertinent Family History HEENT: Reports: Hearing Impairment Cardiac: Reports: High Cholesterol, Hypertension Respiratory: Reports: Asthma : Reports: Renal Disease/Insufficiency Musculoskeletal: Reports: Arthritis, Back pain, Chronic, Gout Neurological: Reports: Seizure Psychiatric: Reports: Schizophrenia Endocrine/Metabolic: Reports: Diabetes, Type I, Diabetes, type II, Obesity/MBI 30+ Dermatologic: Reports: Eczema Oncologic: Reports: Bone, Lung - Tobacco Use Tobacco Use Status *Q: Former Tobacco User Years of Tobacco use: 20 Packs/Tins Daily: 1 Used Tobacco, but Quit: Yes Month/Year Tobacco Last Used: 2000 - Caffeine Use Caffeine Use: Reports: Coffee Other Caffeine Use: cup of coffee every morning Caffeine Use Comment: Drinks about 1 cup of coffee and 1-2 cups of iced tea a day. - Recreational Drug Use Recreational Drug Use: No - Living Situation & Occupation Living situation: Reports: , Alone Occupation: Retired H&P Review of Systems - Review of Systems: Review Of Systems: Comprehensive ROS is negative, except as noted in HPI. Exam - Exam Exam: See Below - Vital Signs Vital Signs: Last Vital Signs Temp 97.7 F 02/16/20 18:00 Pulse 59 L 02/16/20 16:28 Resp 16 02/16/20 16:28 BP 140/58 L 02/16/20 16:28 Pulse Ox 97 02/16/20 17:28 Orthostatic Blood Pressure [ 93/75 Standing] Orthostatic Blood Pressure [ 71/59 Sitting] Orthostatic Blood Pressure [ 134/72 Supine] Weight: 157 lb 7 oz - Exam General: Alert, Oriented, 4 HEENT: Conjunctiva Clear, Mucosa Moist & [place], Normal Nasal Septum Neck: Supple, Trachea Midline, 2 Lungs: Clear to Auscultation, Normal Respiratory Effort Cardiovascular: Regular Rate, Regular Rhythm GI/Abdominal Exam: Soft, No Organomegaly, No Distention, No Abnormal Bruit, No Mass, Pelvis Stable, Tender (Mild left lower abdominal tenderness). No: Normal Bowel Sounds (Hyperactive) Back Exam: Normal Inspection, Full Range of Motion, NT Extremities: Normal Inspection, Normal Range of Motion, No Pedal Edema, Normal Capillary Refill Skin: Warm, Dry, Intact Neuro Extensive - Mental Status: Alert, Oriented x3, Normal Mood/Affect, Normal Cognition Psychiatric: Alert, Normal Affect, Normal Mood - Patient Data Lab Results Last 24 hrs: Laboratory Results - last 24 hr 02/16/20 02/16/20 02/16/20 Range/Units 12:05 12:46 12:46 WBC 10.63 H (3.98-10.04) K/mm3 RBC 2.55 L (3.98-5.22) M/mm3 Hgb 4.6 L* D (11.2-15.7) gm/dl Hct 17.8 L (34.1-44.9) % MCV 69.8 L D (79.4-94.8) fl MCH 18.0 L (25.6-32.2) pg MCHC 25.8 L (32.2-35.5) g/dl RDW Std Deviation 43.1 (36.4-46.3) fL Plt Count 410 H D (182-369) K/mm3 MPV 9.3 L (9.4-12.3) fl Neut % (Auto) 58.7 (34.0-71.1) % Lymph % (Auto) 32.9 (19.3-51.7) % [place] % (Auto) 7.4 (4.7-12.5) % Eos % (Auto) 0.4 L (0.7-5.8) Baso % (Auto) 0.3 (0.1-1.2) % Neut # (Auto) 6.24 H (1.56-6.13) K/mm3 Lymph # (Auto) 3.50 (1.18-3.74) K/mm3 [place] # (Auto) 0.79 H (0.24-0.36) K/mm3 Eos # (Auto) 0.04 (0.04-0.36) K/mm3 Baso # (Auto) 0.03 (0.01-0.08) K/mm3 Manual Slide Review Abnormal smear PT (9.7-12.0) SECONDS INR Sodium 141 (136-145) mEq/L Potassium 3.9 (3.5-5.1) mEq/L Chloride 104 (98-107) mEq/L Carbon Dioxide 24 (21-32) mEq/L Anion Gap 16.9 H (5-15) BUN 36 H (7-18) mg/dL Creatinine 1.6 H (0.55-1.02) mg/dL Est Cr Clr Drug Dosing 26.08 mL/min Estimated GFR (MDRD) 31 (>60) mL/min BUN/Creatinine Ratio 22.5 H (14-18) Glucose 121 H (83-115) mg/dL Calcium 10.3 H (8.5-10.1) mg/dL Magnesium (1.8-2.4) mg/dl Iron (50-170) ug/dL TIBC (100-400) ug/dL % Saturation (20-55) % Transferrin (202-364) mg/dL Ferritin (8-252) ng/ml Total Bilirubin 0.4 (0.2-1.0) mg/dL AST 11 L (15-37) U/L ALT 13 L (14-59) U/L Alkaline Phosphatase 59 (46-116) U/L Troponin I < 0.017 (0.00-0.056) ng/mL C-Reactive Protein 0.6 (<1.0) mg/dL Total Protein 6.5 (6.4-8.2) g/dl Albumin 2.8 L (3.4-5.0) g/dl Globulin 3.7 gm/dL Albumin/Globulin Ratio 0.8 L (1-2) Lipase 65 L (73-393) U/L SARS-CoV-2 RNA (AMINA) Negative (NEGATIVE) Blood Type Gel Antibody Screen Crossmatch 02/16/20 02/16/20 02/16/20 Range/Units 12:46 12:46 12:46 WBC (3.98-10.04) K/mm3 RBC (3.98-5.22) M/mm3 Hgb (11.2-15.7) gm/dl Hct (34.1-44.9) % MCV (79.4-94.8) fl MCH (25.6-32.2) pg MCHC (32.2-35.5) g/dl RDW Std Deviation (36.4-46.3) fL Plt Count (182-369) K/mm3 MPV (9.4-12.3) fl Neut % (Auto) (34.0-71.1) % Lymph % (Auto) (19.3-51.7) % [place] % (Auto) (4.7-12.5) % Eos % (Auto) (0.7-5.8) Baso % (Auto) (0.1-1.2) % Neut # (Auto) (1.56-6.13) K/mm3 Lymph # (Auto) (1.18-3.74) K/mm3 [place] # (Auto) (0.24-0.36) K/mm3 Eos # (Auto) (0.04-0.36) K/mm3 Baso # (Auto) (0.01-0.08) K/mm3 Manual Slide Review PT (9.7-12.0) SECONDS INR Sodium (136-145) mEq/L Potassium (3.5-5.1) mEq/L Chloride (98-107) mEq/L Carbon Dioxide (21-32) mEq/L Anion Gap (5-15) BUN (7-18) mg/dL Creatinine (0.55-1.02) mg/dL Est Cr Clr Drug Dosing mL/min Estimated GFR (MDRD) (>60) mL/min BUN/Creatinine Ratio (14-18) Glucose (83-115) mg/dL Calcium (8.5-10.1) mg/dL Magnesium 1.9 (1.8-2.4) mg/dl Iron 9 L (50-170) ug/dL TIBC 405 H (100-400) ug/dL % Saturation 2 L (20-55) % Transferrin 324 (202-364) mg/dL Ferritin (8-252) ng/ml Total Bilirubin (0.2-1.0) mg/dL AST (15-37) U/L ALT (14-59) U/L Alkaline Phosphatase (46-116) U/L Troponin I (0.00-0.056) ng/mL C-Reactive Protein (<1.0) mg/dL Total Protein (6.4-8.2) g/dl Albumin (3.4-5.0) g/dl Globulin gm/dL Albumin/Globulin Ratio (1-2) Lipase (73-393) U/L SARS-CoV-2 RNA (AMINA) (NEGATIVE) Blood Type O POSITIVE Gel Antibody Screen Negative Crossmatch See Detail 02/16/20 02/16/20 Range/Units 12:46 12:46 WBC (3.98-10.04) K/mm3 RBC (3.98-5.22) M/mm3 Hgb (11.2-15.7) gm/dl Hct (34.1-44.9) % MCV (79.4-94.8) fl MCH (25.6-32.2) pg MCHC (32.2-35.5) g/dl RDW Std Deviation (36.4-46.3) fL Plt Count (182-369) K/mm3 MPV (9.4-12.3) fl Neut % (Auto) (34.0-71.1) % Lymph % (Auto) (19.3-51.7) % [place] % (Auto) (4.7-12.5) % Eos % (Auto) (0.7-5.8) Baso % (Auto) (0.1-1.2) % Neut # (Auto) (1.56-6.13) K/mm3 Lymph # (Auto) (1.18-3.74) K/mm3 [place] # (Auto) (0.24-0.36) K/mm3 Eos # (Auto) (0.04-0.36) K/mm3 Baso # (Auto) (0.01-0.08) K/mm3 Manual Slide Review PT 23.8 H (9.7-12.0) SECONDS INR 2.26 Sodium (136-145) mEq/L Potassium (3.5-5.1) mEq/L Chloride (98-107) mEq/L Carbon Dioxide (21-32) mEq/L Anion Gap (5-15) BUN (7-18) mg/dL Creatinine (0.55-1.02) mg/dL Est Cr Clr Drug Dosing mL/min Estimated GFR (MDRD) (>60) mL/min BUN/Creatinine Ratio (14-18) Glucose (83-115) mg/dL Calcium (8.5-10.1) mg/dL Magnesium (1.8-2.4) mg/dl Iron (50-170) ug/dL TIBC (100-400) ug/dL % Saturation (20-55) % Transferrin (202-364) mg/dL Ferritin 8 (8-252) ng/ml Total Bilirubin (0.2-1.0) mg/dL AST (15-37) U/L ALT (14-59) U/L Alkaline Phosphatase (46-116) U/L Troponin I (0.00-0.056) ng/mL C-Reactive Protein (<1.0) mg/dL Total Protein (6.4-8.2) g/dl Albumin (3.4-5.0) g/dl Globulin gm/dL Albumin/Globulin Ratio (1-2) Lipase (73-393) U/L SARS-CoV-2 RNA (AMINA) (NEGATIVE) Blood Type Gel Antibody Screen Crossmatch Result Diagrams: 02/16/20 12:46 02/16/20 12:46 Sepsis Event Note - Evaluation Sepsis Screening Result: No Definite Risk - Focused Exam Vital Signs: Vital Signs Temp Temp Pulse Pulse Resp BP BP 02/16/20 18:00 97.7 F 02/16/20 17:28 02/16/20 16:28 59 L 16 140/58 L 02/16/20 16:17 97.7 F 69 16 144/50 H 02/16/20 14:53 97.7 F 69 16 144/50 H 02/16/20 14:38 97 F 68 16 147/69 H 02/16/20 14:24 97.8 F 62 16 120/60 02/16/20 11:27 96.7 F L 66 15 116/55 L Pulse Ox Pulse Ox 02/16/20 18:00 02/16/20 17:28 97 02/16/20 16:28 02/16/20 16:17 97 02/16/20 14:53 02/16/20 14:38 97 02/16/20 14:24 99 02/16/20 11:27 98 - Problem List (1) Acute GI bleeding SNOMED Code(s): 70609582 ICD Code: K92.2 - GASTROINTESTINAL HEMORRHAGE, UNSPECIFIED Status: Acute Current Visit: Yes (2) Anemia SNOMED Code(s): 557580567 ICD Code: D64.9 - ANEMIA, UNSPECIFIED Status: Acute Current Visit: Yes Qualifiers: Anemia type: unspecified type Qualified Code(s): D64.9 - Anemia, unspecified (3) Chronic renal insufficiency SNOMED Code(s): 262461613 ICD Code: N18.9 - CHRONIC KIDNEY DISEASE, UNSPECIFIED Status: Acute Current Visit: No Problem List Initiated/Reviewed/Updated: Yes Orders Last 24hrs: Active Orders 24 hr Category Date Time Status Admission Status [Patient Status] [ADT] Routine ADT 02/16/20 15:02 Active Antiembolic Devices [RC] PER UNIT ROUTINE Care 02/16/20 17:31 Active Orthostatic Vital Signs [RC] ASDIRECTED Care 02/16/20 11:28 Active Oxygen Therapy [RC] PRN Care 02/16/20 17:28 Active Up With Assistance [RC] ASDIRECTED Care 02/16/20 17:28 Active VTE/DVT Education [RC] PER UNIT ROUTINE Care 02/16/20 17:28 Active Vital Signs [RC] Q4H Care 02/16/20 17:28 Active NPO [Nothing Per Oral Diet] [DIET] Diet 02/17/20 Breakfast Active RED BLOOD CELLS LP [BBK] Stat Lab 02/16/20 12:46 Results TYPE AND SCREEN [BBK] Stat Lab 02/16/20 12:46 Results UA W/MICROSCOPIC [URIN] Stat Lab 02/16/20 11:28 Ordered Acetaminophen [TylenoL] Med 02/16/20 17:28 Active 650 mg PO Q4H PRN Acetaminophen [Tylenol] Med 02/16/20 17:28 Active 650 mg RECTAL Q4H PRN Pantoprazole [ProTONIX IV] Med 02/17/20 05:00 Active 40 mg IVPUSH Q12H Sodium Chloride 0.9% [Normal Saline] 1,000 ml Med 02/16/20 17:30 Active IV ASDIRECTED Sodium Chloride 0.9% [Saline Flush] Med 02/16/20 11:27 Active 10 ml FLUSH ASDIRECTED PRN Sodium Chloride 0.9% [Saline Flush] Med 02/16/20 11:57 Active 10 ml FLUSH ONETIME PRN Peripheral IV Insertion Adult [OM.PC] Stat Oth 02/16/20 11:28 Ordered Sequential Compression Device [OM.PC] Per Unit Routine Oth 02/16/20 17:30 Ordered Transfuse PRBC [Transfuse Red Blood Cells] [COMM] Ot 02/16/20 14:05 Ordered Routine Code Status [Resuscitation Status] Routine Resus Stat 02/16/20 17:06 Ordered Medication Orders Acetaminophen (Tylenol) 650 mg PO Q4H PRN PRN Reason: Pain (Mild 1-3)/fever Acetaminophen (Tylenol) 650 mg RECTAL Q4H PRN PRN Reason: Pain (mild 1-3) Sodium Chloride (Normal Saline) 1,000 mls @ 125 mls/hr IV ASDIRECTED LUCI Pantoprazole Sodium (Protonix Iv) 40 mg IVPUSH Q12H LUCI Sodium Chloride (Saline Flush) 10 ml FLUSH ASDIRECTED PRN PRN Reason: Keep Vein Open Last Admin: 02/16/20 12:11 Dose: 10 ml Documented by: LENARD Sodium Chloride (Saline Flush) 10 ml FLUSH ONETIME PRN PRN Reason: IV FLUSH Last Admin: 02/16/20 14:25 Dose: 10 ml Documented by: LENARD Assessment/Plan Comment:: Assessment 79-year-old female with acute on chronic anemia likely secondary to GI bleeding. Therapeutic INR 2 to 3 days after last warfarin dose * Previously admitted on 12/01/2019 with lower GI bleed following partial colonoscopy. * Hemoglobin 4.6 on admission * INR 2.2. Patient states that last warfarin was a few days ago. She stopped taking it because she could not go to the clinic to get her INR checked. * It is likely that she was supratherapeutic and she has had a slow bleed over the last few days. Unfortunately, she is a poor historian and although she states she has not had a bowel movement in a couple of days that is not consistent with findings on exam and laboratory findings. * Started on 3 units packed red blood cells in the emergency room Past medical history hypertension, hyperlipidemia, coronary artery disease, congestive heart failure, diastolic dysfunction, COPD Plan * Admit to medical floor on telemetry * Start to 20-gauge IVs * Start FiO2 at 2 L nasal cannula because patient has a history of coronary artery disease, heart failure, angina. Patient will need higher demand for O2 and her oxygen saturation monitoring will be skewed. * Vitamin K 10 mg IV * If she continues to have bleeding start Kcentra * Consider consultation with surgery in the morning. * CODE STATUS: CPR * VTE prophylaxis with SCDs. Chemoprophylaxis contraindicated secondary to bleeding. - Mortality Measure Prognosis:: Good
--- NOTE | 2020-02-16 20:36 | PCM.SN.2 ---
- Free Text/Narrative Note: Called for difficult IV start due to multiple failed attempts. Procedure explained to Kim and she is willing to proceed. Requesting 20 gauge IV for blood transfusion and medication administration x 2 sites. Buffered lidocaine utilized for IV attempts. 20 Ga IV inserted with standard aseptic procedure to the right antecubital with a single attempt, good blood return, flushed with 10ml of saline. 20 Ga IV inserted with standard aseptic technique to the left antecubital with 2 attempts, good blood return, flushed with 10 ml of saline. Both sites secured with skin prep, transparent dressing, and tape provided in IV start kit. Kim tolerated the IV assess attempts well. Geri Martinez CRNA
[2020-02-17] MEDS: Pantoprazole 40 MG Vial IVPUSH SCH ×3 (03:29→16:32)
--- NOTE | 2020-02-17 08:01 | PCM.PN ---
- General Info Date of Service: 02/17/20 Admission Dx/Problem (Free Text): Admission Diagnosis/Problem Admission Diagnosis/Problem Anemia Subjective Update: No overnight or acute issues. She feels much better. Her repeat Hgb level is 9.6 grams after 3 units of blood transfusion. She is heme-occult positive. No more reports of GI bleed. INR is now at 2.26. Per daughter, she appears confused but patient adamantly denies it. No stroke like symptoms. Functional Status: Reports: Pain Controlled, Ambulating, Urinating. Denies: New Symptoms - Review of Systems General: Denies: Fever, Chills Pulmonary: Denies: Shortness of Breath Cardiovascular: Denies: Chest Pain Gastrointestinal: Denies: Abdominal Pain, Nausea, Vomiting Genitourinary: Reports: No Symptoms Musculoskeletal: Denies: Joint Pain Skin: Denies: Cyanosis, Pallor Neurological: Reports: Confusion. Denies: Dizziness Psychiatric: Denies: Depression, Anxiety - Patient Data Vitals - Most Recent: Last Vital Signs Temp 36.8 C 02/17/20 07:31 Pulse 56 L 02/17/20 07:31 Resp 16 02/17/20 07:31 BP 145/63 H 02/17/20 07:31 Pulse Ox 97 02/17/20 07:31 Orthostatic Blood Pressure [ 93/75 Standing] Orthostatic Blood Pressure [ 71/59 Sitting] Orthostatic Blood Pressure [ 134/72 Supine] Weight - Most Recent: 71.758 kg I&O - Last 24 Hours: Intake & Output 02/16/20 02/17/20 02/17/20 22:59 06:59 14:59 Intake Total 920 1435 Output Total 400 Balance 920 1035 Lab Results Last 24 Hours: Laboratory Results - last 24 hr 02/16/20 02/16/20 02/16/20 Range/Units 12:05 12:46 12:46 WBC 10.63 H (3.98-10.04) K/mm3 RBC 2.55 L (3.98-5.22) M/mm3 Hgb 4.6 L* D (11.2-15.7) gm/dl Hct 17.8 L (34.1-44.9) % MCV 69.8 L D (79.4-94.8) fl MCH 18.0 L (25.6-32.2) pg MCHC 25.8 L (32.2-35.5) g/dl RDW Std Deviation 43.1 (36.4-46.3) fL Plt Count 410 H D (182-369) K/mm3 MPV 9.3 L (9.4-12.3) fl Neut % (Auto) 58.7 (34.0-71.1) % Lymph % (Auto) 32.9 (19.3-51.7) % [place] % (Auto) 7.4 (4.7-12.5) % Eos % (Auto) 0.4 L (0.7-5.8) Baso % (Auto) 0.3 (0.1-1.2) % Neut # (Auto) 6.24 H (1.56-6.13) K/mm3 Lymph # (Auto) 3.50 (1.18-3.74) K/mm3 [place] # (Auto) 0.79 H (0.24-0.36) K/mm3 Eos # (Auto) 0.04 (0.04-0.36) K/mm3 Baso # (Auto) 0.03 (0.01-0.08) K/mm3 Manual Slide Review Abnormal smear PT (9.7-12.0) SECONDS INR Sodium 141 (136-145) mEq/L Potassium 3.9 (3.5-5.1) mEq/L Chloride 104 (98-107) mEq/L Carbon Dioxide 24 (21-32) mEq/L Anion Gap 16.9 H (5-15) BUN 36 H (7-18) mg/dL Creatinine 1.6 H (0.55-1.02) mg/dL Est Cr Clr Drug Dosing 26.08 mL/min Estimated GFR (MDRD) 31 (>60) mL/min BUN/Creatinine Ratio 22.5 H (14-18) Glucose 121 H (83-115) mg/dL Calcium 10.3 H (8.5-10.1) mg/dL Magnesium (1.8-2.4) mg/dl Iron (50-170) ug/dL TIBC (100-400) ug/dL % Saturation (20-55) % Transferrin (202-364) mg/dL Ferritin (8-252) ng/ml Total Bilirubin 0.4 (0.2-1.0) mg/dL AST 11 L (15-37) U/L ALT 13 L (14-59) U/L Alkaline Phosphatase 59 (46-116) U/L Troponin I < 0.017 (0.00-0.056) ng/mL C-Reactive Protein 0.6 (<1.0) mg/dL Total Protein 6.5 (6.4-8.2) g/dl Albumin 2.8 L (3.4-5.0) g/dl Globulin 3.7 gm/dL Albumin/Globulin Ratio 0.8 L (1-2) Lipase 65 L (73-393) U/L Urine Color (Yellow) Urine Appearance (Clear) Urine pH (5.0-8.0) Ur Specific [place] (1.005-1.030) Urine Protein (Negative) Urine Glucose (UA) (Negative) Urine Ketones (Negative) Urine Occult Blood (Negative) Urine Nitrite (Negative) Urine Bilirubin (Negative) Urine Urobilinogen (0.2-1.0) Ur Leukocyte Esterase (Negative) U Hyaline Cast (Auto) (0-5) /lpf Urine RBC (0-5) /hpf Urine WBC (0-5) /hpf Ur Squamous Epith Cells (0-5) /hpf Urine Bacteria (FEW) /hpf Urine Mucus (FEW) /hpf SARS-CoV-2 RNA (AMINA) Negative (NEGATIVE) Blood Type Gel Antibody Screen Crossmatch 02/16/20 02/16/20 02/16/20 Range/Units 12:46 12:46 12:46 WBC (3.98-10.04) K/mm3 RBC (3.98-5.22) M/mm3 Hgb (11.2-15.7) gm/dl Hct (34.1-44.9) % MCV (79.4-94.8) fl MCH (25.6-32.2) pg MCHC (32.2-35.5) g/dl RDW Std Deviation (36.4-46.3) fL Plt Count (182-369) K/mm3 MPV (9.4-12.3) fl Neut % (Auto) (34.0-71.1) % Lymph % (Auto) (19.3-51.7) % [place] % (Auto) (4.7-12.5) % Eos % (Auto) (0.7-5.8) Baso % (Auto) (0.1-1.2) % Neut # (Auto) (1.56-6.13) K/mm3 Lymph # (Auto) (1.18-3.74) K/mm3 [place] # (Auto) (0.24-0.36) K/mm3 Eos # (Auto) (0.04-0.36) K/mm3 Baso # (Auto) (0.01-0.08) K/mm3 Manual Slide Review PT (9.7-12.0) SECONDS INR Sodium (136-145) mEq/L Potassium (3.5-5.1) mEq/L Chloride (98-107) mEq/L Carbon Dioxide (21-32) mEq/L Anion Gap (5-15) BUN (7-18) mg/dL Creatinine (0.55-1.02) mg/dL Est Cr Clr Drug Dosing mL/min Estimated GFR (MDRD) (>60) mL/min BUN/Creatinine Ratio (14-18) Glucose (83-115) mg/dL Calcium (8.5-10.1) mg/dL Magnesium 1.9 (1.8-2.4) mg/dl Iron 9 L (50-170) ug/dL TIBC 405 H (100-400) ug/dL % Saturation 2 L (20-55) % Transferrin 324 (202-364) mg/dL Ferritin (8-252) ng/ml Total Bilirubin (0.2-1.0) mg/dL AST (15-37) U/L ALT (14-59) U/L Alkaline Phosphatase (46-116) U/L Troponin I (0.00-0.056) ng/mL C-Reactive Protein (<1.0) mg/dL Total Protein (6.4-8.2) g/dl Albumin (3.4-5.0) g/dl Globulin gm/dL Albumin/Globulin Ratio (1-2) Lipase (73-393) U/L Urine Color (Yellow) Urine Appearance (Clear) Urine pH (5.0-8.0) Ur Specific [place] (1.005-1.030) Urine Protein (Negative) Urine Glucose (UA) (Negative) Urine Ketones (Negative) Urine Occult Blood (Negative) Urine Nitrite (Negative) Urine Bilirubin (Negative) Urine Urobilinogen (0.2-1.0) Ur Leukocyte Esterase (Negative) U Hyaline Cast (Auto) (0-5) /lpf Urine RBC (0-5) /hpf Urine WBC (0-5) /hpf Ur Squamous Epith Cells (0-5) /hpf Urine Bacteria (FEW) /hpf Urine Mucus (FEW) /hpf SARS-CoV-2 RNA (AMINA) (NEGATIVE) Blood Type O POSITIVE Gel Antibody Screen Negative Crossmatch See Detail 02/16/20 02/16/20 02/16/20 Range/Units 12:46 12:46 23:15 WBC (3.98-10.04) K/mm3 RBC (3.98-5.22) M/mm3 Hgb (11.2-15.7) gm/dl Hct (34.1-44.9) % MCV (79.4-94.8) fl MCH (25.6-32.2) pg MCHC (32.2-35.5) g/dl RDW Std Deviation (36.4-46.3) fL Plt Count (182-369) K/mm3 MPV (9.4-12.3) fl Neut % (Auto) (34.0-71.1) % Lymph % (Auto) (19.3-51.7) % [place] % (Auto) (4.7-12.5) % Eos % (Auto) (0.7-5.8) Baso % (Auto) (0.1-1.2) % Neut # (Auto) (1.56-6.13) K/mm3 Lymph # (Auto) (1.18-3.74) K/mm3 [place] # (Auto) (0.24-0.36) K/mm3 Eos # (Auto) (0.04-0.36) K/mm3 Baso # (Auto) (0.01-0.08) K/mm3 Manual Slide Review PT 23.8 H (9.7-12.0) SECONDS INR 2.26 Sodium (136-145) mEq/L Potassium (3.5-5.1) mEq/L Chloride (98-107) mEq/L Carbon Dioxide (21-32) mEq/L Anion Gap (5-15) BUN (7-18) mg/dL Creatinine (0.55-1.02) mg/dL Est Cr Clr Drug Dosing mL/min Estimated GFR (MDRD) (>60) mL/min BUN/Creatinine Ratio (14-18) Glucose (83-115) mg/dL Calcium (8.5-10.1) mg/dL Magnesium (1.8-2.4) mg/dl Iron (50-170) ug/dL TIBC (100-400) ug/dL % Saturation (20-55) % Transferrin (202-364) mg/dL Ferritin 8 (8-252) ng/ml Total Bilirubin (0.2-1.0) mg/dL AST (15-37) U/L ALT (14-59) U/L Alkaline Phosphatase (46-116) U/L Troponin I (0.00-0.056) ng/mL C-Reactive Protein (<1.0) mg/dL Total Protein (6.4-8.2) g/dl Albumin (3.4-5.0) g/dl Globulin gm/dL Albumin/Globulin Ratio (1-2) Lipase (73-393) U/L Urine Color Yellow (Yellow) Urine Appearance Clear (Clear) Urine pH 6.0 (5.0-8.0) Ur Specific [place] 1.020 (1.005-1.030) Urine Protein Trace H (Negative) Urine Glucose (UA) Negative (Negative) Urine Ketones Negative (Negative) Urine Occult Blood Negative (Negative) Urine Nitrite Negative (Negative) Urine Bilirubin Negative (Negative) Urine Urobilinogen 0.2 (0.2-1.0) Ur Leukocyte Esterase Negative (Negative) U Hyaline Cast (Auto) 0-5 (0-5) /lpf Urine RBC Not seen (0-5) /hpf Urine WBC 0-5 (0-5) /hpf Ur Squamous Epith Cells 0-5 (0-5) /hpf Urine Bacteria Rare (FEW) /hpf Urine Mucus Rare (FEW) /hpf SARS-CoV-2 RNA (AMINA) (NEGATIVE) Blood Type Gel Antibody Screen Crossmatch Med Orders - Current: Current Medications Acetaminophen (Tylenol) 650 mg PO Q4H PRN PRN Reason: Pain (Mild 1-3)/fever Acetaminophen (Tylenol) 650 mg RECTAL Q4H PRN PRN Reason: Pain (mild 1-3) Sodium Chloride (Normal Saline) 1,000 mls @ 125 mls/hr IV ASDIRECTED [facility] Last Admin: 02/17/20 03:29 Dose: 125 mls/hr Documented by: Pantoprazole Sodium (Protonix Iv) 40 mg IVPUSH Q12H [facility] Last Admin: 02/17/20 07:14 Dose: Not Given Documented by: Sodium Chloride (Saline Flush) 10 ml FLUSH ASDIRECTED PRN PRN Reason: Keep Vein Open Last Admin: 02/16/20 12:11 Dose: 10 ml Documented by: Sodium Chloride (Saline Flush) 10 ml FLUSH ONETIME PRN PRN Reason: IV FLUSH Last Admin: 02/16/20 14:25 Dose: 10 ml Documented by: Discontinued Medications Sodium Chloride (Normal Saline) 1,000 mls @ 999 mls/hr IV NOW STA Stop: 02/16/20 12:43 Last Admin: 02/16/20 12:10 Dose: 150 mls/hr Documented by: Phytonadione 10 mg/ Sodium (Chloride) 51 mls @ 100 mls/hr IV NOW ONE Stop: 02/16/20 16:34 Last Admin: 02/16/20 20:34 Dose: 100 mls/hr Documented by: Ondansetron HCl (Zofran) 4 mg IVPUSH ONETIME ONE Stop: 02/16/20 11:44 Last Admin: 02/16/20 12:11 Dose: 4 mg Documented by: Pantoprazole Sodium (Protonix Iv) 80 mg IVPUSH BOLUS ONE Stop: 02/16/20 16:10 Last Admin: 02/16/20 20:29 Dose: 80 mg Documented by: - Exam Quality Assessment: Supplemental Oxygen General: Alert, Oriented (to person only), Cooperative HEENT: Pupils Equal, Pupils Reactive, EOMI, Mucous Membr. Moist/[place] Neck: Supple Lungs: Clear to Auscultation, Normal Respiratory Effort Cardiovascular: Irregular Rhythm GI/Abdominal Exam: Soft, Non-Tender, No Organomegaly, No Distention, No Abnormal Bruit, Other (Hyperactive bowel sounds) (Female) Exam: Deferred Back Exam: Normal Inspection, Full Range of Motion Extremities: Normal Inspection, Normal Range of Motion, Non-Tender, No Pedal E temi, Normal Capillary Refill Peripheral Pulses: 2+: Dorsalis Pedis (L), Dorsalis Pedis (R) Skin: Warm, Dry, Intact Neurological: No New Focal Deficit Psy/Mental Status: Alert, Normal Affect, Normal Mood Sepsis Event Note - Evaluation Sepsis Screening Result: No Definite Risk - Focused Exam Vital Signs: Vital Signs Temp Pulse Pulse Resp BP BP BP 02/17/20 07:31 36.8 C 56 L 16 145/63 H 02/17/20 03:28 36.6 C 107 H 20 145/79 H 02/16/20 22:39 36.6 C 63 63 19 137/73 137/73 137/73 02/16/20 20:41 36.7 C 31 L 18 135/38 L 02/16/20 20:37 36.7 C 58 L 18 135/38 L 02/16/20 20:20 36.8 C 61 60 18 141/55 H 141/55 H Pulse Ox 02/17/20 07:31 97 02/17/20 03:28 98 02/16/20 22:39 97 02/16/20 20:41 95 02/16/20 20:37 97 02/16/20 20:20 99 - Problem List Review Problem List Initiated/Reviewed/Updated: Yes - Plan Plan:: Assessment: Acute: 79-year-old female with acute on chronic anemia likely secondary to GI bleeding. Therapeutic INR 2 to 3 days after last warfarin dose * Previously admitted on 12/01/2019 with lower GI bleed following partial colonoscopy. * Hemoglobin 4.6 on admission-->repeat Hgb is 9.6 grams * INR 2.2. Patient states that last warfarin was a few days ago. She stopped t aking it because she could not go to the clinic to get her INR checked. * It is likely that she was supratherapeutic and she has had a slow bleed over the last few days. Unfortunately, she is a poor historian and although she states she has not had a bowel movement in a couple of days that is not consistent with findings on exam and laboratory findings. * Received 3 units packed red blood cells in the emergency room * Discontinue IV fluids * Start clear liquid diet and advance as tolerated Mild Hyperchloremia * Likely from GI bleed * Will monitor Therapeutic INR * Patient understood this would her 3rd episode of GI bleed while on anticoagulations * Went over risks and benefits * Recommend to come off permanently but patient wants to stay in due to risk for stroke * Daughter was present at beside during our conversation regarding continuation of her warfarin * Dietary consult for Warfarin diet Hypophosphatemia * Mg of 2.5 mg * Likely from GI loss and NPO status * Will start clear liquid diet Hypoalbuminemia * Likely from poor protein intake * Dianetic Counselor consult AMS/Confusion * Alert and Awake * Orientated X1 * No stroke like symptoms * Not getting benzo and or narcs * UA/Covid both negative * No fever or chills * Offered head CT scan -patient refused Chronic: hypertension, hyperlipidemia, coronary artery disease, congestive heart failure, diastolic dysfunction, diabetes-duet controlled, COPD, CKD Stage 2-3 Plan: * Start clear liquid diet * Routine AM labs * Accu-check TIDAC until she is on regular diet * Continue to hold warfarin * Dianetic Counselor consult * Vitamin K 10 mg IV given yesterday * Offered head CT scan-she refused it * CODE STATUS: CPR * VTE prophylaxis with SCDs. Chemoprophylaxis contraindicated secondary to bleeding
[2020-02-17] MEDS ORDERED: Albuterol/Ipratropium 3.0-0.5 MG/3 ML Neb Soln INH PRN (16:56)
[2020-02-17] MEDS ORDERED: Albuterol 6.7 GM Inhaler INH PRN (16:56)
[2020-02-17] MEDS: Dicyclomine 10 MG Cap PO SCH ×2 (18:22→20:53)
[2020-02-17] MEDS: Rosuvastatin 10 MG Tab PO SCH (20:52)
[2020-02-17] MEDS: Allopurinol 300 MG Tab PO SCH (20:53)
[2020-02-17] MEDS: Sertraline 50 MG Tab PO SCH (20:53)
[2020-02-17] MEDS: Mometasone Furoate HFA 200 mcg/Puff 13 GM Inhaler INH SCH (20:59)
[2020-02-17] MEDS ORDERED: Mometasone Furoate HFA 200 mcg/Puff 13 GM Inhaler INH SCH (21:00)
[2020-02-17] MEDS ORDERED: MOMETASONE FUROATE INH SCH (21:00)
[2020-02-17] MEDS: Docusate Sodium 100 MG Cap PO SCH (21:47)
[2020-02-18] MEDS: Pantoprazole 40 MG Vial IVPUSH SCH (06:38)
[2020-02-18] MEDS: Cholecalciferol (Vitamin D3) 25 MCG Tab PO SCH (08:07)
[2020-02-18] MEDS: Docusate Sodium 100 MG Cap PO SCH ×2 (08:08→20:49)
[2020-02-18] MEDS: Pantoprazole 40 MG Tab.CR PO SCH (08:08)
[2020-02-18] MEDS: Dicyclomine 10 MG Cap PO SCH ×4 (08:08→20:49)
--- NOTE | 2020-02-18 08:09 | PCM.PN ---
- General Info Date of Service: 02/18/20 Admission Dx/Problem (Free Text): Admission Diagnosis/Problem Admission Diagnosis/Problem Anemia Subjective Update: No overnight issues. She is tolerating regular diet. She feels good and no new complaints. No shortness of breath, chest pain, lightheadedness or dizziness. No report of GI bleed or melena. Her Hgb is stable at 8.8 but INR is 1.05. Functional Status: Reports: Pain Controlled, Tolerating Diet, Ambulating, Urinating - Review of Systems General: Denies: Fever, Weakness, Fatigue, Chills HEENT: Denies: Contact Lenses Pulmonary: Denies: No Symptoms, Shortness of Breath, Cough Cardiovascular: Denies: Chest Pain Gastrointestinal: Denies: Abdominal Pain, Hematochezia, Melena, Nausea, Vomiting Genitourinary: Denies: Frequency Musculoskeletal: Denies: Joint Pain Skin: Denies: Cyanosis, Bruising, Rash Neurological: Denies: Confusion, Dizziness, Headache, Syncope Psychiatric: Denies: Confusion, Depression, Anxiety - Patient Data Vitals - Most Recent: Last Vital Signs Temp 36.6 C 02/17/20 23:15 Pulse 65 02/18/20 03:24 Resp 16 02/17/20 23:15 BP 154/90 H 02/18/20 04:20 Pulse Ox 100 02/18/20 03:24 Orthostatic Blood Pressure [ 93/75 Standing] Orthostatic Blood Pressure [ 71/59 Sitting] Orthostatic Blood Pressure [ 134/72 Supine] Weight - Most Recent: 71.395 kg I&O - Last 24 Hours: Intake & Output 02/17/20 02/18/20 02/18/20 22:59 06:59 14:59 Intake Total 1505 200 Output Total 800 Balance 705 200 Lab Results Last 24 Hours: Laboratory Results - last 24 hr 02/17/20 02/17/20 02/17/20 Range/Units 11:35 11:35 17:43 WBC 9.88 (3.98-10.04) K/mm3 RBC 4.13 (3.98-5.22) M/mm3 Hgb 9.6 L D (11.2-15.7) gm/dl Hct 31.6 L (34.1-44.9) % MCV 76.5 L D (79.4-94.8) fl MCH 23.2 L (25.6-32.2) pg MCHC 30.4 L (32.2-35.5) g/dl RDW Std Deviation 53.6 H (36.4-46.3) fL Plt Count 259 D (182-369) K/mm3 MPV 9.6 (9.4-12.3) fl Neut % (Auto) 63.7 (34.0-71.1) % Lymph % (Auto) 23.9 (19.3-51.7) % [place] % (Auto) 10.4 (4.7-12.5) % Eos % (Auto) 1.3 (0.7-5.8) Baso % (Auto) 0.3 (0.1-1.2) % Neut # (Auto) 6.29 H (1.56-6.13) K/mm3 Lymph # (Auto) 2.36 (1.18-3.74) K/mm3 [place] # (Auto) 1.03 H (0.24-0.36) K/mm3 Eos # (Auto) 0.13 (0.04-0.36) K/mm3 Baso # (Auto) 0.03 (0.01-0.08) K/mm3 Manual Slide Review PT (9.7-12.0) SECONDS INR Sodium 144 (136-145) mEq/L Potassium 4.5 (3.5-5.1) mEq/L Chloride 109 H (98-107) mEq/L Carbon Dioxide 26 (21-32) mEq/L Anion Gap 13.5 (5-15) BUN 22 H (7-18) mg/dL Creatinine 1.2 H (0.55-1.02) mg/dL Est Cr Clr Drug Dosing 34.77 mL/min Estimated GFR (MDRD) 43 (>60) mL/min BUN/Creatinine Ratio 18.3 H (14-18) Glucose 92 (83-115) mg/dL POC Glucose 93 (83-110) mg/dL Calcium 9.9 (8.5-10.1) mg/dL Phosphorus 2.5 L (2.6-4.7) mg/dL Magnesium 1.9 (1.8-2.4) mg/dl Total Bilirubin 0.9 (0.2-1.0) mg/dL AST 17 (15-37) U/L ALT 9 L (14-59) U/L Alkaline Phosphatase 60 (46-116) U/L Total Protein 6.2 L (6.4-8.2) g/dl Albumin 2.7 L (3.4-5.0) g/dl Globulin 3.5 gm/dL Albumin/Globulin Ratio 0.8 L (1-2) 02/18/20 02/18/20 02/18/20 Range/Units 05:50 05:50 05:50 WBC 9.36 (3.98-10.04) K/mm3 RBC 3.81 L (3.98-5.22) M/mm3 Hgb 8.8 L (11.2-15.7) gm/dl Hct 29.5 L (34.1-44.9) % MCV 77.4 L (79.4-94.8) fl MCH 23.1 L (25.6-32.2) pg MCHC 29.8 L (32.2-35.5) g/dl RDW Std Deviation 56.4 H (36.4-46.3) fL Plt Count 264 (182-369) K/mm3 MPV 10.4 (9.4-12.3) fl Neut % (Auto) 64.7 (34.0-71.1) % Lymph % (Auto) 22.2 (19.3-51.7) % [place] % (Auto) 11.0 (4.7-12.5) % Eos % (Auto) 1.5 (0.7-5.8) Baso % (Auto) 0.3 (0.1-1.2) % Neut # (Auto) 6.05 (1.56-6.13) K/mm3 Lymph # (Auto) 2.08 (1.18-3.74) K/mm3 [place] # (Auto) 1.03 H (0.24-0.36) K/mm3 Eos # (Auto) 0.14 (0.04-0.36) K/mm3 Baso # (Auto) 0.03 (0.01-0.08) K/mm3 Manual Slide Review Abnormal smear PT 11.2 D (9.7-12.0) SECONDS INR 1.05 Sodium 145 (136-145) mEq/L Potassium 4.2 (3.5-5.1) mEq/L Chloride 110 H (98-107) mEq/L Carbon Dioxide 25 (21-32) mEq/L Anion Gap 14.2 (5-15) BUN 16 (7-18) mg/dL Creatinine 1.2 H (0.55-1.02) mg/dL Est Cr Clr Drug Dosing 34.77 mL/min Estimated GFR (MDRD) 43 (>60) mL/min BUN/Creatinine Ratio 13.3 L (14-18) Glucose 98 (83-115) mg/dL POC Glucose (83-110) mg/dL Calcium 9.8 (8.5-10.1) mg/dL Phosphorus (2.6-4.7) mg/dL Magnesium 1.8 (1.8-2.4) mg/dl Total Bilirubin (0.2-1.0) mg/dL AST (15-37) U/L ALT (14-59) U/L Alkaline Phosphatase (46-116) U/L Total Protein (6.4-8.2) g/dl Albumin (3.4-5.0) g/dl Globulin gm/dL Albumin/Globulin Ratio (1-2) Med Orders - Current: Current Medications Acetaminophen (Tylenol) 650 mg PO Q4H PRN PRN Reason: Pain (Mild 1-3)/fever Acetaminophen (Tylenol) 650 mg RECTAL Q4H PRN PRN Reason: Pain (mild 1-3) Albuterol (Proventil Hfa) 0 gm INH BID PRN PRN Reason: Shortness of Breath Albuterol/Ipratropium (Duoneb 3.0-0.5 Mg/3 Ml) 3 ml INH BID PRN PRN Reason: Shortness of Breath Allopurinol (Zyloprim) 300 mg PO BEDTIME [facility] Last Admin: 02/17/20 20:53 Dose: 300 mg Documented by: Cholecalciferol (Vitamin D3) 25 mcg PO DAILY [facility] Last Admin: 02/18/20 08:07 Dose: 25 mcg Documented by: Dicyclomine HCl (Bentyl) 20 mg PO QID [facility] Last Admin: 02/18/20 08:08 Dose: 20 mg Documented by: Docusate Sodium (Colace) 100 mg PO BID [facility] Last Admin: 02/18/20 08:08 Dose: 100 mg Documented by: Mometasone Furoate (Asmanex Hfa 200mcg) 0 gm INH BID [facility] Last Admin: 02/17/20 20:59 Dose: 2 puff Documented by: Pantoprazole Sodium (Protonix Iv) 40 mg IVPUSH Q12H [facility] Last Admin: 02/18/20 06:38 Dose: 40 mg Documented by: Pantoprazole Sodium (Protonix) 40 mg PO DAILY [facility] Last Admin: 02/18/20 08:08 Dose: 40 mg Documented by: Rosuvastatin Calcium (Crestor) 40 mg PO BEDTIME [facility] Last Admin: 02/17/20 20:52 Dose: 40 mg Documented by: Sertraline HCl (Zoloft) 50 mg PO BEDTIME [facility] Last Admin: 02/17/20 20:53 Dose: 50 mg Documented by: Sodium Chloride (Saline Flush) 10 ml FLUSH ASDIRECTED PRN PRN Reason: Keep Vein Open Last Admin: 02/16/20 12:11 Dose: 10 ml Documented by: Sodium Chloride (Saline Flush) 10 ml FLUSH ONETIME PRN PRN Reason: IV FLUSH Last Admin: 02/16/20 14:25 Dose: 10 ml Documented by: Discontinued Medications Sodium Chloride (Normal Saline) 1,000 mls @ 999 mls/hr IV NOW STA Stop: 02/16/20 12:43 Last Admin: 02/16/20 12:10 Dose: 150 mls/hr Documented by: Phytonadione 10 mg/ Sodium (Chloride) 51 mls @ 100 mls/hr IV NOW ONE Stop: 02/16/20 16:34 Last Admin: 02/16/20 20:34 Dose: 100 mls/hr Documented by: Sodium Chloride (Normal Saline) 1,000 mls @ 125 mls/hr IV ASDIRECTED [facility] Last Admin: 02/17/20 03:29 Dose: 125 mls/hr Documented by: Mometasone Furoate (Asmanex Hfa 200mcg) 1 gm INH BID [facility] Non-Formulary Medication (Mometasone Furoate [Asmanex Hfa]) 1 puff INH BID [facility] Ondansetron HCl (Zofran) 4 mg IVPUSH ONETIME ONE Stop: 02/16/20 11:44 Last Admin: 02/16/20 12:11 Dose: 4 mg Documented by: Pantoprazole Sodium (Protonix Iv) 80 mg IVPUSH BOLUS ONE Stop: 02/16/20 16:10 Last Admin: 02/16/20 20:29 Dose: 80 mg Documented by: - Exam Quality Assessment: No: Supplemental Oxygen General: Alert, Oriented, Cooperative, No Acute Distress HEENT: Pupils Equal, Pupils Reactive, EOMI, Mucous Membr. Moist/[place] Neck: Supple Lungs: Clear to Auscultation, Normal Respiratory Effort Cardiovascular: Irregular Rhythm GI/Abdominal Exam: Normal Bowel Sounds, Soft, Non-Tender, No Organomegaly (Female) Exam: Deferred Back Exam: Normal Inspection, Decreased Range of Motion Extremities: Normal Inspection, Normal Range of Motion, Non-Tender, No Pedal Edema, Normal Capillary Refill Peripheral Pulses: 1+: Dorsalis Pedis (L), Dorsalis Pedis (R) Skin: Warm, Dry, Intact Neurological: No New Focal Deficit Psy/Mental Status: Alert, Normal Affect, Normal Mood Sepsis Event Note - Evaluation Sepsis Screening Result: No Definite Risk - Focused Exam Vital Signs: Vital Signs Temp Pulse Resp BP BP Pulse Ox Pulse Ox 02/18/20 04:20 154/90 H 02/18/20 03:24 65 160/119 H 100 02/18/20 01:21 63 94 L 02/17/20 23:15 36.6 C 82 16 138/91 H 77 L 02/17/20 21:00 94 L 02/17/20 20:55 64 95 - Problem List Review Problem List Initiated/Reviewed/Updated: Yes - My Orders Last 24 Hours: My Active Orders 02/17/20 14:08 Blood Glucose Check, Bedside [RC] TIDMEALS 02/17/20 16:56 Albuterol [Proventil HFA] 0 gm INH BID PRN Albuterol/Ipratropium [DuoNeb 3.0-0.5 MG/3 ML] 3 ml INH BID PRN 02/17/20 Dinner Regular Diet [DIET] Dicyclomine [Bentyl] 20 mg PO QID 02/17/20 17:27 RT Aerosol Therapy [RC] ASDIRECTED 02/17/20 21:00 Docusate Sodium [Colace] 100 mg PO BID Mometasone Furoate [Asmanex HFA] 0 gm INH BID Rosuvastatin [Crestor] 40 mg PO BEDTIME Sertraline [Zoloft] 50 mg PO BEDTIME allopurinoL [Zyloprim] 300 mg PO BEDTIME 02/18/20 08:00 Consult to 4 H Youth Development Specialist [CONS] Routine 02/18/20 09:00 Cholecalciferol (Vitamin D3) [Vitamin D3] 25 mcg PO DAILY Pantoprazole [ProTONIX] 40 mg PO DAILY - Plan Plan:: Assessment: Acute: 79-year-old female with acute on chronic anemia likely secondary to GI bleeding. Therapeutic INR 2 to 3 days after last warfarin dose * Previously admitted on 12/01/2019 with lower GI bleed following partial colonoscopy. * Hemoglobin 4.6 on admission--> repeat Hgb is 9.6 grams * INR 2.2. Patient states that last warfarin was a few days ago. She stopped taking it because she could not go to the clinic to get her INR checked. * It is likely that she was supratherapeutic and she has had a slow bleed over the last few days. Unfortunately, she is a poor historian and although she states she has not had a bowel movement in a couple of days that is not co nsistent with findings on exam and laboratory findings. * Received 3 units packed red blood cells in the emergency room * Discontinue IV fluids * Start clear liquid diet and advance as tolerated Mild Hyperchloremia * Cl 109-->110 * Likely from GI bleed * Will monitor Therapeutic INR * Patient understood this would her 3rd episode of GI bleed while on anticoagulations * Went over risks and benefits * Recommend to come off permanently but patient wants to stay in due to risk for stroke * Daughter was present at beside during our conversation regarding continuation of her warfarin * Dietary consult for Warfarin diet Hypophosphatemia * Mg of 2.5 mg * Likely from GI loss and NPO status * Will start clear liquid diet Hypoalbuminemia * Likely from poor protein intake * 4 H Youth Development Specialist consult AMS/Confusion, improved * Alert and Awake * Orientated X1 * No stroke like symptoms * Not getting benzo and or narcs * UA/Covid both negative * No fever or chills * Offered head CT scan -patient refused Chronic: hypertension, hyperlipidemia, coronary artery disease, congestive heart failure, diastolic dysfunction, diabetes-duet controlled, COPD, CKD Stage 2-3 Plan: * Continue regular diet * Routine AM labs * Discontinue Accu-check TIDAC * Will resume warfarin, lasix, lisinopril, and potassium supplement * Consider watchman device as an option-went over with her and daughter about the benefits of it if she rebleeds * 4 H Youth Development Specialist consult * CODE STATUS: CPR * VTE prophylaxis with SCDs. Chemoprophylaxis contraindicated secondary to bleeding * Discharge pending INR level and placement to NH * LOS > 96 hrs due to subtherapeutic INR and Mildly low Hgb level as well as discharge placement
[2020-02-18] MEDS: Lisinopril 20 MG Tab PO SCH (08:41)
[2020-02-18] MEDS: Potassium Chloride 20 MEQ Tab.ER PO SCH (08:42)
[2020-02-18] MEDS: Furosemide 40 MG Tab PO SCH (08:42)
[2020-02-18] MEDS: Mometasone Furoate HFA 200 mcg/Puff 13 GM Inhaler INH SCH ×2 (08:46→20:09)
[2020-02-18] MEDS ORDERED: Non-Formulary Medication 1 Each (Warfarin 2 MG) PO SCH (09:00)
[2020-02-18] MEDS ORDERED: Warfarin 5 MG Tab PO SCH (18:00)
[2020-02-18] MEDS: Sertraline 50 MG Tab PO SCH (20:49)
[2020-02-18] MEDS: Allopurinol 300 MG Tab PO SCH (20:49)
[2020-02-18] MEDS: Rosuvastatin 10 MG Tab PO SCH (20:49)
[2020-02-19] MEDS: Mometasone Furoate HFA 200 mcg/Puff 13 GM Inhaler INH SCH ×2 (08:04→19:59)
[2020-02-19] MEDS: Potassium Chloride 20 MEQ Tab.ER PO SCH (09:15)
[2020-02-19] MEDS: Dicyclomine 10 MG Cap PO SCH ×4 (09:15→21:14)
[2020-02-19] MEDS: Cholecalciferol (Vitamin D3) 25 MCG Tab PO SCH (09:15)
[2020-02-19] MEDS: Pantoprazole 40 MG Tab.CR PO SCH (09:15)
[2020-02-19] MEDS: Furosemide 40 MG Tab PO SCH (09:15)
[2020-02-19] MEDS: Lisinopril 20 MG Tab PO SCH (09:15)
[2020-02-19] MEDS: Docusate Sodium 100 MG Cap PO SCH ×2 (09:16→21:14)
--- NOTE | 2020-02-19 09:52 | PCM.PN ---
- General Info Date of Service: 02/19/20 Admission Dx/Problem (Free Text): Admission Diagnosis/Problem Admission Diagnosis/Problem Anemia Subjective Update: No overnight issues. No report of GI bleed or melena. She is doing good. She is eating and drinking fine. She is still pleasantly confused. Her INR is about the same this morning. She has no new complaints. Functional Status: Reports: Pain Controlled, Tolerating Diet, Ambulating, Urin ating. Denies: New Symptoms - Review of Systems General: Denies: Fever, Weakness, Chills HEENT: Denies: Dysphasia, Headaches Pulmonary: Denies: Shortness of Breath, Cough Cardiovascular: Denies: Chest Pain Gastrointestinal: Denies: Abdominal Pain, Nausea, Vomiting Genitourinary: Denies: Incontinence Musculoskeletal: Denies: Joint Pain Skin: Reports: Bruising Neurological: Denies: Dizziness, Seizure, Syncope Psychiatric: Denies: Confusion, Anxiety - Patient Data Vitals - Most Recent: Last Vital Signs Temp 36.7 C 02/19/20 07:19 Pulse 56 L 02/19/20 07:19 Resp 14 02/19/20 07:19 BP 154/63 H 02/19/20 09:15 Pulse Ox 97 02/19/20 07:19 Orthostatic Blood Pressure [ 93/75 Standing] Orthostatic Blood Pressure [ 71/59 Sitting] Orthostatic Blood Pressure [ 134/72 Supine] Weight - Most Recent: 72.257 kg I&O - Last 24 Hours: Intake & Output 02/18/20 02/19/20 02/19/20 22:59 06:59 14:59 Intake Total 1110 Balance 1110 Lab Results Last 24 Hours: Laboratory Results - last 24 hr 02/18/20 02/18/20 02/18/20 Range/Units 06:10 11:37 18:34 PT (9.7-12.0) SECONDS INR POC Glucose 97 166 H 122 H (83-110) mg/dL 02/19/20 02/19/20 Range/Units 06:27 06:28 PT 11.2 (9.7-12.0) SECONDS INR 1.05 POC Glucose 119 H (83-110) mg/dL Med Orders - Current: Current Medications Acetaminophen (Tylenol) 650 mg PO Q4H PRN PRN Reason: Pain (Mild 1-3)/fever Acetaminophen (Tylenol) 650 mg RECTAL Q4H PRN PRN Reason: Pain (mild 1-3) Albuterol (Proventil Hfa) 0 gm INH BID PRN PRN Reason: Shortness of Breath Albuterol/Ipratropium (Duoneb 3.0-0.5 Mg/3 Ml) 3 ml INH BID PRN PRN Reason: Shortness of Breath Allopurinol (Zyloprim) 300 mg PO BEDTIME [facility] Last Admin: 02/18/20 20:49 Dose: 300 mg Documented by: Cholecalciferol (Vitamin D3) 25 mcg PO DAILY [facility] Last Admin: 02/19/20 09:15 Dose: 25 mcg Documented by: Dicyclomine HCl (Bentyl) 20 mg PO QID [facility] Last Admin: 02/19/20 09:15 Dose: 20 mg Documented by: Docusate Sodium (Colace) 100 mg PO BID [facility] Last Admin: 02/19/20 09:16 Dose: 100 mg Documented by: Furosemide (Lasix) 40 mg PO DAILY [facility] Last Admin: 02/19/20 09:15 Dose: 40 mg Documented by: Lisinopril (Prinivil) 20 mg PO DAILY [facility] Last Admin: 02/19/20 09:15 Dose: 20 mg Documented by: Mometasone Furoate (Asmanex Hfa 200mcg) 0 gm INH BID [facility] Last Admin: 02/19/20 08:04 Dose: 2 puff Documented by: Pantoprazole Sodium (Protonix) 40 mg PO DAILY [facility] Last Admin: 02/19/20 09:15 Dose: 40 mg Documented by: Potassium Chloride (Klor-Con M20) 20 meq PO DAILY [facility] Last Admin: 02/19/20 09:15 Dose: 20 meq Documented by: Rosuvastatin Calcium (Crestor) 40 mg PO BEDTIME [facility] Last Admin: 02/18/20 20:49 Dose: 40 mg Documented by: Sertraline HCl (Zoloft) 50 mg PO BEDTIME [facility] Last Admin: 02/18/20 20:49 Dose: 50 mg Documented by: Sodium Chloride (Saline Flush) 10 ml FLUSH ONETIME PRN PRN Reason: IV FLUSH Last Admin: 02/16/20 14:25 Dose: 10 ml Documented by: Warfarin Sodium (Pharmacy To Dose - Warfarin) 1 dose PO ASDIRECTED PRN PRN Reason: RX TO DOSE WARFARIN Warfarin Sodium (Coumadin) 5 mg PO QPM [facility] Stop: 02/19/20 18:01 Discontinued Medications Sodium Chloride (Normal Saline) 1,000 mls @ 999 mls/hr IV NOW STA Stop: 02/16/20 12:43 Last Admin: 02/16/20 12:10 Dose: 150 mls/hr Documented by: Phytonadione 10 mg/ Sodium (Chloride) 51 mls @ 100 mls/hr IV NOW ONE Stop: 02/16/20 16:34 Last Admin: 02/16/20 20:34 Dose: 100 mls/hr Documented by: Sodium Chloride (Normal Saline) 1,000 mls @ 125 mls/hr IV ASDIRECTED [facility] Last Admin: 02/17/20 03:29 Dose: 125 mls/hr Documented by: Mometasone Furoate (Asmanex Hfa 200mcg) 1 gm INH BID [facility] Non-Formulary Medication (Mometasone Furoate [Asmanex Hfa]) 1 puff INH BID [facility] Non-Formulary Medication (Warfarin) 2 mg PO DAILY [facility] Last Admin: 02/18/20 16:15 Dose: Not Given Documented by: Ondansetron HCl (Zofran) 4 mg IVPUSH ONETIME ONE Stop: 02/16/20 11:44 Last Admin: 02/16/20 12:11 Dose: 4 mg Documented by: Pantoprazole Sodium (Protonix Iv) 80 mg IVPUSH BOLUS ONE Stop: 02/16/20 16:10 Last Admin: 02/16/20 20:29 Dose: 80 mg Documented by: Pantoprazole Sodium (Protonix Iv) 40 mg IVPUSH Q12H [facility] Last Admin: 02/18/20 06:38 Dose: 40 mg Documented by: Sodium Chloride (Saline Flush) 10 ml FLUSH ASDIRECTED PRN PRN Reason: Keep Vein Open Last Admin: 02/16/20 12:11 Dose: 10 ml Documented by: Warfarin Sodium (Coumadin) 5 mg PO QPM [facility] Stop: 02/18/20 18:01 Last Admin: 02/18/20 18:46 Dose: 5 mg Documented by: - Exam General: Alert, Oriented (to person), Cooperative, No Acute Distress HEENT: Pupils Equal, Pupils Reactive, EOMI, Mucous Membr. Moist/[place] Lungs: Clear to Auscultation, Normal Respiratory Effort Cardiovascular: Irregular Rhythm GI/Abdominal Exam: Normal Bowel Sounds, Soft, Non-Tender, No Organomegaly, No Distention (Female) Exam: Deferred Back Exam: Normal Inspection, Full Range of Motion Extremities: Normal Inspection, Normal Range of Motion, Non-Tender, No Pedal Edema, Normal Capillary Refill Peripheral Pulses: 2+: Dorsalis Pedis (L), Dorsalis Pedis (R) Skin: Warm, Dry, Intact, Ecchymosis (all over) Neurological: No New Focal Deficit Psy/Mental Status: Alert, Normal Affect, Normal Mood Sepsis Event Note - Evaluation Sepsis Screening Result: No Definite Risk - Focused Exam Vital Signs: Vital Signs Temp Pulse Resp BP Pulse Ox 02/19/20 09:15 154/63 H 02/19/20 07:19 36.7 C 56 L 14 154/63 H 97 02/19/20 03:34 36.8 C 56 L 16 121/84 98 02/18/20 23:24 37.2 C 59 L 16 121/67 100 - Problem List Review Problem List Initiated/Reviewed/Updated: Yes - My Orders Last 24 Hours: My Active Orders 02/18/20 09:00 Cholecalciferol (Vitamin D3) [Vitamin D3] 25 mcg PO DAILY Furosemide [Lasix] 40 mg PO DAILY Pantoprazole [ProTONIX] 40 mg PO DAILY Potassium Chloride [Klor-Con M20] 20 meq PO DAILY lisinopriL [Prinivil] 20 mg PO DAILY 02/18/20 10:58 PT Evaluation and Treatment [CONS] Routine 02/18/20 10:59 OT Evaluation and Treatment [CONS] Routine 02/18/20 11:50 Warfarin Pharmacy to Dose [Pharmacy to Dose - Warfarin] 1 dose PO ASDIRECTED PRN 02/18/20 Dinner Regular Diet [DIET] 02/19/20 18:00 Warfarin [Coumadin] 5 mg PO QPM 02/20/20 05:11 BMP [BASIC METABOLIC PANEL,BMP] [CHEM] AM CBC WITH AUTO DIFF [HEME] AM INR,PT,PROTHROMBIN TIME [COAG] AM INR,PT,PROTHROMBIN TIME [COAG] AM MAGNESIUM [CHEM] AM 02/21/20 05:11 BMP [BASIC METABOLIC PANEL,BMP] [CHEM] AM CBC WITH AUTO DIFF [HEME] AM INR,PT,PROTHROMBIN TIME [COAG] AM INR,PT,PROTHROMBIN TIME [COAG] AM MAGNESIUM [CHEM] AM 02/22/20 05:11 BMP [BASIC METABOLIC PANEL,BMP] [CHEM] AM CBC WITH AUTO DIFF [HEME] AM INR,PT,PROTHROMBIN TIME [COAG] AM INR,PT,PROTHROMBIN TIME [COAG] AM MAGNESIUM [CHEM] AM - Plan Plan:: Assessment: Acute: 79-year-old female with acute on chronic anemia likely secondary to GI bleeding. Therapeutic INR 2 to 3 days after last warfarin dose * Previously admitted on 12/01/2019 with lower GI bleed following partial colonoscopy. * Hemoglobin 4.6 on admission--> repeat Hgb is 9.6 grams * INR 2.2. Patient states that last warfarin was a few days ago. She stopped taking it because she could not go to the clinic to get her INR checked. * It is likely that she was supratherapeutic and she has had a slow bleed over the last few days. Unfortunately, she is a poor historian and although she states she has not had a bowel movement in a couple of days that is not consistent with findings on exam and laboratory findings. * Received 3 units packed red blood cells in the emergency room * Discontinue IV fluids * Start clear liquid diet and advance as tolerated Mild Hyperchloremia * Cl 109-->110 * Likely from GI bleed * Will monitor Subtherapeutic INR * Patient understood this would her 3rd episode of GI bleed while on anticoagulations * Went over risks and benefits * Recommend to come off permanently but patient wants to stay in due to risk for stroke * Daughter was present at beside during our conversation regarding continuation of her warfarin * Dietary consult for Warfarin diet * INR of 1.05 Hypophosphatemia * Mg of 2.5 mg * Likely from GI loss and NPO status * Will start clear liquid diet Hypoalbuminemia * Likely from poor protein intake * [employer] consult AMS/Confusion, improved * Alert and Awake * Orientated X1 * No stroke like symptoms * Not getting benzo and or narcs * UA/Covid both negative * No fever or chills * Offered head CT scan -patient refused Chronic: hypertension, hyperlipidemia, coronary artery disease, congestive heart failure, diastolic dysfunction, diabetes-duet controlled, COPD, CKD Stage 2-3 Plan: * Continue regular diet * Routine AM labs * INR is subtherapeutic * Resume warfarin * Continue lasix, lisinopril, and potassium supplement * Lovenox 1 mg/kg BID to bridge warfarin therapy * Consider watchman device as an option-went over with her and daughter about the benefits of it if she rebleeds * [employer] consult * CODE STATUS: CPR * VTE prophylaxis with SCDs. Chemoprophylaxis contraindicated secondary to bleeding * Discharge pending INR level and placement to [facility] * LOS > 96 hrs due to subtherapeutic INR and Mildly low Hgb level as well as discharge placement
[2020-02-19] MEDS ORDERED: Warfarin 5 MG Tab PO SCH (18:00)
[2020-02-19] MEDS: Sertraline 50 MG Tab PO SCH (21:14)
[2020-02-19] MEDS: Rosuvastatin 10 MG Tab PO SCH (21:14)
[2020-02-19] MEDS: Allopurinol 300 MG Tab PO SCH (21:14)
[2020-02-19] MEDS: Enoxaparin 80 MG/0.8 ML Syringe SUBCUT SCH (21:15)
--- NOTE | 2020-02-20 07:47 | PCM.PN ---
- General Info Date of Service: 02/20/20 Admission Dx/Problem (Free Text): Admission Diagnosis/Problem Admission Diagnosis/Problem Anemia Subjective Update: No overnight or acute issues issues. She is doing relatively well. Her Hgb is at 9.2 and INR is 1.23 this morning. Functional Status: Reports: Pain Controlled, Tolerating Diet, Ambulating, Urinating - Review of Systems General: Denies: Fever, Weakness, Fatigue, Chills HEENT: Denies: Contact Lenses Pulmonary: Denies: Shortness of Breath, Cough Cardiovascular: Denies: Chest Pain, Dyspnea on Exertion, Lightheadedness Gastrointestinal: Denies: Abdominal Pain, Constipation, Decreased Appetite, Diarrhea, Hematochezia, Melena, Nausea, Vomiting Genitourinary: Denies: Frequency Musculoskeletal: Denies: Foot Pain Skin: Denies: Jaundice, Bruising, Rash Neurological: Denies: Confusion, Dizziness, Syncope, Gait Disturbance Psychiatric: Denies: Depression, Anxiety - Patient Data Vitals - Most Recent: Last Vital Signs Temp 36.8 C 02/20/20 03:51 Pulse 42 L 02/20/20 03:51 Resp 16 02/20/20 03:51 BP 113/54 L 02/20/20 03:51 Pulse Ox 93 L 02/20/20 03:51 Orthostatic Blood Pressure [ 93/75 Standing] Orthostatic Blood Pressure [ 71/59 Sitting] Orthostatic Blood Pressure [ 134/72 Supine] Weight - Most Recent: 70.67 kg I&O - Last 24 Hours: Intake & Output 02/19/20 02/20/20 02/20/20 22:59 06:59 14:59 Intake Total 1160 200 Output Total 1250 Balance -90 200 Lab Results Last 24 Hours: Laboratory Results - last 24 hr 02/19/20 02/19/20 02/19/20 Range/Units 11:12 12:13 16:54 WBC 9.76 (3.98-10.04) K/mm3 RBC 3.88 L (3.98-5.22) M/mm3 Hgb 8.8 L (11.2-15.7) gm/dl Hct 30.3 L (34.1-44.9) % MCV 78.1 L (79.4-94.8) fl MCH 22.7 L (25.6-32.2) pg MCHC 29.0 L (32.2-35.5) g/dl RDW Std Deviation 58.7 H (36.4-46.3) fL Plt Count 263 (182-369) K/mm3 MPV 10.1 (9.4-12.3) fl Neut % (Auto) 68.9 (34.0-71.1) % Lymph % (Auto) 19.1 L (19.3-51.7) % [place] % (Auto) 10.3 (4.7-12.5) % Eos % (Auto) 1.1 (0.7-5.8) Baso % (Auto) 0.2 (0.1-1.2) % Neut # (Auto) 6.72 H (1.56-6.13) K/mm3 Lymph # (Auto) 1.86 (1.18-3.74) K/mm3 [place] # (Auto) 1.01 H (0.24-0.36) K/mm3 Eos # (Auto) 0.11 (0.04-0.36) K/mm3 Baso # (Auto) 0.02 (0.01-0.08) K/mm3 Manual Slide Review Abnormal smear PT (9.7-12.0) SECONDS INR Sodium (136-145) mEq/L Potassium (3.5-5.1) mEq/L Chloride (98-107) mEq/L Carbon Dioxide (21-32) mEq/L Anion Gap (5-15) BUN (7-18) mg/dL Creatinine (0.55-1.02) mg/dL Est Cr Clr Drug Dosing mL/min Estimated GFR (MDRD) (>60) mL/min BUN/Creatinine Ratio (14-18) Glucose (83-115) mg/dL POC Glucose 206 H 133 H (83-110) mg/dL Calcium (8.5-10.1) mg/dL Phosphorus (2.6-4.7) mg/dL Magnesium (1.8-2.4) mg/dl 02/20/20 02/20/20 02/20/20 Range/Units 04:47 04:47 04:47 WBC 10.49 H (3.98-10.04) K/mm3 RBC 4.00 (3.98-5.22) M/mm3 Hgb 9.2 L (11.2-15.7) gm/dl Hct 31.0 L (34.1-44.9) % MCV 77.5 L (79.4-94.8) fl MCH 23.0 L (25.6-32.2) pg MCHC 29.7 L (32.2-35.5) g/dl RDW Std Deviation 60.1 H (36.4-46.3) fL Plt Count 257 (182-369) K/mm3 MPV 10.1 (9.4-12.3) fl Neut % (Auto) 58.6 (34.0-71.1) % Lymph % (Auto) 27.1 (19.3-51.7) % [place] % (Auto) 12.0 (4.7-12.5) % Eos % (Auto) 1.5 (0.7-5.8) Baso % (Auto) 0.4 (0.1-1.2) % Neut # (Auto) 6.15 H (1.56-6.13) K/mm3 Lymph # (Auto) 2.84 (1.18-3.74) K/mm3 [place] # (Auto) 1.26 H (0.24-0.36) K/mm3 Eos # (Auto) 0.16 (0.04-0.36) K/mm3 Baso # (Auto) 0.04 (0.01-0.08) K/mm3 Manual Slide Review Abnormal smear PT 13.1 H (9.7-12.0) SECONDS INR 1.23 Sodium 142 (136-145) mEq/L Potassium 3.7 (3.5-5.1) mEq/L Chloride 105 (98-107) mEq/L Carbon Dioxide 30 (21-32) mEq/L Anion Gap 10.7 (5-15) BUN 23 H (7-18) mg/dL Creatinine 1.2 H (0.55-1.02) mg/dL Est Cr Clr Drug Dosing 34.77 mL/min Estimated GFR (MDRD) 43 (>60) mL/min BUN/Creatinine Ratio 19.2 H (14-18) Glucose 126 H (83-115) mg/dL POC Glucose (83-110) mg/dL Calcium 9.9 (8.5-10.1) mg/dL Phosphorus 2.8 (2.6-4.7) mg/dL Magnesium 1.7 L (1.8-2.4) mg/dl Med Orders - Current: Current Medications Acetaminophen (Tylenol) 650 mg PO Q4H PRN PRN Reason: Pain (Mild 1-3)/fever Acetaminophen (Tylenol) 650 mg RECTAL Q4H PRN PRN Reason: Pain (mild 1-3) Albuterol (Proventil Hfa) 0 gm INH BID PRN PRN Reason: Shortness of Breath Albuterol/Ipratropium (Duoneb 3.0-0.5 Mg/3 Ml) 3 ml INH BID PRN PRN Reason: Shortness of Breath Allopurinol (Zyloprim) 300 mg PO BEDTIME [facility] Last Admin: 02/19/20 21:14 Dose: 300 mg Documented by: Cholecalciferol (Vitamin D3) 25 mcg PO DAILY [facility] Last Admin: 02/19/20 09:15 Dose: 25 mcg Documented by: Dicyclomine HCl (Bentyl) 20 mg PO QID [facility] Last Admin: 02/19/20 21:14 Dose: 20 mg Documented by: Docusate Sodium (Colace) 100 mg PO BID [facility] Last Admin: 02/19/20 21:14 Dose: Not Given Documented by: Enoxaparin Sodium (Lovenox) 70 mg SUBCUT Q12H [facility] Last Admin: 02/19/20 21:15 Dose: 70 mg Documented by: Furosemide (Lasix) 40 mg PO DAILY [facility] Last Admin: 02/19/20 09:15 Dose: 40 mg Documented by: Lisinopril (Prinivil) 20 mg PO DAILY [facility] Last Admin: 02/19/20 09:15 Dose: 20 mg Documented by: Mometasone Furoate (Asmanex Hfa 200mcg) 0 gm INH BID [facility] Last Admin: 02/19/20 19:59 Dose: 1 puff Documented by: Pantoprazole Sodium (Protonix) 40 mg PO DAILY [facility] Last Admin: 02/19/20 09:15 Dose: 40 mg Documented by: Potassium Chloride (Klor-Con M20) 20 meq PO DAILY [facility] Last Admin: 02/19/20 09:15 Dose: 20 meq Documented by: Rosuvastatin Calcium (Crestor) 40 mg PO BEDTIME [facility] Last Admin: 02/19/20 21:14 Dose: 40 mg Documented by: Sertraline HCl (Zoloft) 50 mg PO BEDTIME [facility] Last Admin: 02/19/20 21:14 Dose: 50 mg Documented by: Sodium Chloride (Saline Flush) 10 ml FLUSH ONETIME PRN PRN Reason: IV FLUSH Last Admin: 02/16/20 14:25 Dose: 10 ml Documented by: Warfarin Sodium (Pharmacy To Dose - Warfarin) 1 dose PO ASDIRECTED PRN PRN Reason: RX TO DOSE WARFARIN Discontinued Medications Sodium Chloride (Normal Saline) 1,000 mls @ 999 mls/hr IV NOW STA Stop: 02/16/20 12:43 Last Admin: 02/16/20 12:10 Dose: 150 mls/hr Documented by: Phytonadione 10 mg/ Sodium (Chloride) 51 mls @ 100 mls/hr IV NOW ONE Stop: 02/16/20 16:34 Last Admin: 02/16/20 20:34 Dose: 100 mls/hr Documented by: Sodium Chloride (Normal Saline) 1,000 mls @ 125 mls/hr IV ASDIRECTED [facility] Last Admin: 02/17/20 03:29 Dose: 125 mls/hr Documented by: Mometasone Furoate (Asmanex Hfa 200mcg) 1 gm INH BID [facility] Non-Formulary Medication (Mometasone Furoate [Asmanex Hfa]) 1 puff INH BID [facility] Non-Formulary Medication (Warfarin) 2 mg PO DAILY [facility] Last Admin: 02/18/20 16:15 Dose: Not Given Documented by: Ondansetron HCl (Zofran) 4 mg IVPUSH ONETIME ONE Stop: 02/16/20 11:44 Last Admin: 02/16/20 12:11 Dose: 4 mg Documented by: Pantoprazole Sodium (Protonix Iv) 80 mg IVPUSH BOLUS ONE Stop: 02/16/20 16:10 Last Admin: 02/16/20 20:29 Dose: 80 mg Documented by: Pantoprazole Sodium (Protonix Iv) 40 mg IVPUSH Q12H [facility] Last Admin: 02/18/20 06:38 Dose: 40 mg Documented by: Sodium Chloride (Saline Flush) 10 ml FLUSH ASDIRECTED PRN PRN Reason: Keep Vein Open Last Admin: 02/16/20 12:11 Dose: 10 ml Documented by: Warfarin Sodium (Coumadin) 5 mg PO QPM [facility] Stop: 02/18/20 18:01 Last Admin: 02/18/20 18:46 Dose: 5 mg Documented by: Warfarin Sodium (Coumadin) 5 mg PO QPM [facility] Stop: 02/19/20 18:01 Last Admin: 02/19/20 17:15 Dose: 5 mg Documented by: - Exam Quality Assessment: No: Supplemental Oxygen General: Alert, Oriented, Cooperative, No Acute Distress HEENT: Pupils Equal, EOMI, Mucous Membr. Moist/[place] Neck: Supple Lungs: Clear to Auscultation, Normal Respiratory Effort Cardiovascular: Regular Rate, Regular Rhythm GI/Abdominal Exam: Normal Bowel Sounds, Soft, Non-Tender, No Organomegaly, No Distention (Female) Exam: Deferred Back Exam: Normal Inspection, Decreased Range of Motion Extremities: Normal Inspection, Normal Range of Motion, Non-Tender, No Pedal E temi, Normal Capillary Refill Peripheral Pulses: 2+: Dorsalis Pedis (L), Dorsalis Pedis (R) Skin: Warm, Dry, Intact Neurological: No New Focal Deficit Psy/Mental Status: Alert, Normal Affect, Normal Mood Sepsis Event Note - Evaluation Sepsis Screening Result: No Definite Risk - Focused Exam Vital Signs: Vital Signs Temp Pulse Resp BP Pulse Ox Pulse Ox 02/20/20 03:51 36.8 C 42 L 16 113/54 L 93 L 02/19/20 23:31 36.8 C 75 16 98/40 L 95 02/19/20 20:00 92 L - Problem List Review Problem List Initiated/Reviewed/Updated: Yes - My Orders Last 24 Hours: My Active Orders 02/19/20 21:00 Enoxaparin [Lovenox] 70 mg SUBCUT Q12H 02/21/20 05:11 BMP [BASIC METABOLIC PANEL,BMP] [CHEM] AM CBC WITH AUTO DIFF [HEME] AM INR,PT,PROTHROMBIN TIME [COAG] AM MAGNESIUM [CHEM] AM 02/22/20 05:11 BMP [BASIC METABOLIC PANEL,BMP] [CHEM] AM CBC WITH AUTO DIFF [HEME] AM INR,PT,PROTHROMBIN TIME [COAG] AM MAGNESIUM [CHEM] AM - Plan Plan:: Assessment: Acute: 79-year-old female with acute on chronic anemia likely secondary to GI bleeding. Therapeutic INR 2 to 3 days after last warfarin dose * Previously admitted on 12/01/2019 with lower GI bleed following partial colonoscopy. * Hemoglobin 4.6 on admission--> repeat Hgb is 9.6 grams * INR 2.2. Patient states that last warfarin was a few days ago. She stopped taking it because she could not go to the clinic to get her INR checked. * It is likely that she was supratherapeutic and she has had a slow bleed over the last few days. Unfortunately, she is a poor historian and although she states she has not had a bowel movement in a couple of days that is not consistent with findings on exam and laboratory findings. * Received 3 units packed red blood cells in the emergency room * Discontinue IV fluids * Start clear liquid diet and advance as tolerated Mild Hyperchloremia, resolved * Cl is now 105 * Likely from GI bleed * Will monitor Subtherapeutic INR * Patient understood this would her 3rd episode of GI bleed while on anticoagulations * Went over risks and benefits * Recommend to come off permanently but patient wants to stay in due to risk for stroke * Daughter was present at beside during our conversation regarding continuation of her warfarin * Dietary consult for Warfarin diet * INR is 1.23 today Hypophosphatemia, resolved * POS of 2.8 * Likely from GI loss and NPO status * She is now eating and drinking Hypomagnesemia * Mg of 1.7 * Will replete and monitor Hypoalbuminemia * Likely from poor protein intake * Employee Health Nurse consult AMS/Confusion, resolved * Alert and Awake * Orientated X1 * No stroke like symptoms * Not getting benzo and or narcs * UA/Covid both negative * No fever or chills * Offered head CT scan -patient refused Chronic: hypertension, hyperlipidemia, coronary artery disease, congestive heart failure, diastolic dysfunction, diabetes-duet controlled, COPD, CKD Stage 2-3 Plan: * Continue regular diet * Routine AM labs * INR daily check * Continue warfarin and lovenox 1 mg/kg BID * Continue lasix, lisinopril, and potassium supplement * Lovenox 1 mg/kg BID to bridge warfarin therapy * Employee Health Nurse consult * CODE STATUS: CPR * VTE prophylaxis with warfarin and lovenox * Discharge pending INR level and placement to [facility] * LOS > 96 hrs due to subtherapeutic INR and discharge placement
[2020-02-20] MEDS: Mometasone Furoate HFA 200 mcg/Puff 13 GM Inhaler INH SCH ×2 (08:00→20:28)
[2020-02-20] MEDS: Enoxaparin 80 MG/0.8 ML Syringe SUBCUT SCH ×2 (09:31→21:28)
[2020-02-20] MEDS: Docusate Sodium 100 MG Cap PO SCH ×2 (09:34→21:23)
[2020-02-20] MEDS: Furosemide 40 MG Tab PO SCH (09:34)
[2020-02-20] MEDS: Dicyclomine 10 MG Cap PO SCH ×4 (09:34→21:23)
[2020-02-20] MEDS: Cholecalciferol (Vitamin D3) 25 MCG Tab PO SCH (09:34)
[2020-02-20] MEDS: Lisinopril 20 MG Tab PO SCH (09:34)
[2020-02-20] MEDS: Potassium Chloride 20 MEQ Tab.ER PO SCH (09:34)
[2020-02-20] MEDS: Pantoprazole 40 MG Tab.CR PO SCH (09:34)
[2020-02-20] MEDS ORDERED: Warfarin 5 MG Tab PO SCH (18:00)
[2020-02-20] MEDS: Allopurinol 300 MG Tab PO SCH (21:24)
[2020-02-20] MEDS: Sertraline 50 MG Tab PO SCH (21:24)
[2020-02-20] MEDS: Rosuvastatin 10 MG Tab PO SCH (21:24)
[2020-02-21] MEDS: Mometasone Furoate HFA 200 mcg/Puff 13 GM Inhaler INH SCH ×2 (08:01→20:21)
--- NOTE | 2020-02-21 08:48 | PCM.PN ---
- General Info Date of Service: 02/21/20 Admission Dx/Problem (Free Text): Admission Diagnosis/Problem Admission Diagnosis/Problem Anemia Subjective Update: No overnight or acute issues issues. No BM yet. Her Hgb is at 8.7 and INR is 1.62 this morning. Functional Status: Reports: Pain Controlled, Tolerating Diet, Ambulating, Urinating - Review of Systems General: Denies: Fever, Weakness, Fatigue, Malaise HEENT: Denies: Headaches, Sore Throat Pulmonary: Denies: Shortness of Breath, Cough Cardiovascular: Denies: Chest Pain, Dyspnea on Exertion, Lightheadedness Gastrointestinal: Denies: Abdominal Pain, Decreased Appetite, Hematochezia, Melena, Nausea, Vomiting Genitourinary: Denies: Dysuria, Burning Musculoskeletal: Denies: Joint Pain Skin: Denies: Jaundice, Bruising, Pruritis Neurological: Denies: Confusion, Dizziness, Difficulty Walking, Weakness, Gait Disturbance Psychiatric: Denies: Depression, Anxiety - Patient Data Vitals - Most Recent: Last Vital Signs Temp 36.7 C 02/21/20 07:18 Pulse 103 H 02/21/20 07:18 Resp 16 02/21/20 07:18 BP 122/95 H 02/21/20 07:18 Pulse Ox 91 L 02/21/20 07:18 Orthostatic Blood Pressure [ 93/75 Standing] Orthostatic Blood Pressure [ 71/59 Sitting] Orthostatic Blood Pressure [ 134/72 Supine] Weight - Most Recent: 71.724 kg I&O - Last 24 Hours: Intake & Output 02/20/20 02/21/20 02/21/20 22:59 06:59 14:59 Intake Total 1110 200 Output Total 450 400 Balance 660 -200 Lab Results Last 24 Hours: Laboratory Results - last 24 hr 02/20/20 02/20/20 02/20/20 Range/Units 06:00 10:46 16:44 WBC (3.98-10.04) K/mm3 RBC (3.98-5.22) M/mm3 Hgb (11.2-15.7) gm/dl Hct (34.1-44.9) % MCV (79.4-94.8) fl MCH (25.6-32.2) pg MCHC (32.2-35.5) g/dl RDW Std Deviation (36.4-46.3) fL Plt Count (182-369) K/mm3 MPV (9.4-12.3) fl Neut % (Auto) (34.0-71.1) % Lymph % (Auto) (19.3-51.7) % [place] % (Auto) (4.7-12.5) % Eos % (Auto) (0.7-5.8) Baso % (Auto) (0.1-1.2) % Neut # (Auto) (1.56-6.13) K/mm3 Lymph # (Auto) (1.18-3.74) K/mm3 [place] # (Auto) (0.24-0.36) K/mm3 Eos # (Auto) (0.04-0.36) K/mm3 Baso # (Auto) (0.01-0.08) K/mm3 Manual Slide Review PT (9.7-12.0) SECONDS INR Sodium (136-145) mEq/L Potassium (3.5-5.1) mEq/L Chloride (98-107) mEq/L Carbon Dioxide (21-32) mEq/L Anion Gap (5-15) BUN (7-18) mg/dL Creatinine (0.55-1.02) mg/dL Est Cr Clr Drug Dosing mL/min Estimated GFR (MDRD) (>60) mL/min BUN/Creatinine Ratio (14-18) Glucose (83-115) mg/dL POC Glucose 114 H 256 H 93 (83-110) mg/dL Calcium (8.5-10.1) mg/dL Magnesium (1.8-2.4) mg/dl 02/21/20 02/21/20 02/21/20 Range/Units 06:04 06:04 06:04 WBC 8.82 (3.98-10.04) K/mm3 RBC 3.77 L (3.98-5.22) M/mm3 Hgb 8.7 L (11.2-15.7) gm/dl Hct 29.6 L (34.1-44.9) % MCV 78.5 L (79.4-94.8) fl MCH 23.1 L (25.6-32.2) pg MCHC 29.4 L (32.2-35.5) g/dl RDW Std Deviation 63.3 H (36.4-46.3) fL Plt Count 266 (182-369) K/mm3 MPV 9.9 (9.4-12.3) fl Neut % (Auto) 54.0 (34.0-71.1) % Lymph % (Auto) 32.0 (19.3-51.7) % [place] % (Auto) 11.7 (4.7-12.5) % Eos % (Auto) 1.5 (0.7-5.8) Baso % (Auto) 0.6 (0.1-1.2) % Neut # (Auto) 4.77 (1.56-6.13) K/mm3 Lymph # (Auto) 2.82 (1.18-3.74) K/mm3 [place] # (Auto) 1.03 H (0.24-0.36) K/mm3 Eos # (Auto) 0.13 (0.04-0.36) K/mm3 Baso # (Auto) 0.05 (0.01-0.08) K/mm3 Manual Slide Review Abnormal smear PT 17.2 H D (9.7-12.0) SECONDS INR 1.62 Sodium 140 (136-145) mEq/L Potassium 4.0 (3.5-5.1) mEq/L Chloride 103 (98-107) mEq/L Carbon Dioxide 30 (21-32) mEq/L Anion Gap 11.0 (5-15) BUN 34 H (7-18) mg/dL Creatinine 1.4 H (0.55-1.02) mg/dL Est Cr Clr Drug Dosing 29.80 mL/min Estimated GFR (MDRD) 36 (>60) mL/min BUN/Creatinine Ratio 24.3 H (14-18) Glucose 119 H (83-115) mg/dL POC Glucose (83-110) mg/dL Calcium 10.0 (8.5-10.1) mg/dL Magnesium 2.0 (1.8-2.4) mg/dl 02/21/20 Range/Units 06:21 WBC (3.98-10.04) K/mm3 RBC (3.98-5.22) M/mm3 Hgb (11.2-15.7) gm/dl Hct (34.1-44.9) % MCV (79.4-94.8) fl MCH (25.6-32.2) pg MCHC (32.2-35.5) g/dl RDW Std Deviation (36.4-46.3) fL Plt Count (182-369) K/mm3 MPV (9.4-12.3) fl Neut % (Auto) (34.0-71.1) % Lymph % (Auto) (19.3-51.7) % [place] % (Auto) (4.7-12.5) % Eos % (Auto) (0.7-5.8) Baso % (Auto) (0.1-1.2) % Neut # (Auto) (1.56-6.13) K/mm3 Lymph # (Auto) (1.18-3.74) K/mm3 [place] # (Auto) (0.24-0.36) K/mm3 Eos # (Auto) (0.04-0.36) K/mm3 Baso # (Auto) (0.01-0.08) K/mm3 Manual Slide Review PT (9.7-12.0) SECONDS INR Sodium (136-145) mEq/L Potassium (3.5-5.1) mEq/L Chloride (98-107) mEq/L Carbon Dioxide (21-32) mEq/L Anion Gap (5-15) BUN (7-18) mg/dL Creatinine (0.55-1.02) mg/dL Est Cr Clr Drug Dosing mL/min Estimated GFR (MDRD) (>60) mL/min BUN/Creatinine Ratio (14-18) Glucose (83-115) mg/dL POC Glucose 126 H (83-110) mg/dL Calcium (8.5-10.1) mg/dL Magnesium (1.8-2.4) mg/dl Med Orders - Current: Current Medications Acetaminophen (Tylenol) 650 mg PO Q4H PRN PRN Reason: Pain (Mild 1-3)/fever Acetaminophen (Tylenol) 650 mg RECTAL Q4H PRN PRN Reason: Pain (mild 1-3) Albuterol (Proventil Hfa) 0 gm INH BID PRN PRN Reason: Shortness of Breath Albuterol/Ipratropium (Duoneb 3.0-0.5 Mg/3 Ml) 3 ml INH BID PRN PRN Reason: Shortness of Breath Allopurinol (Zyloprim) 300 mg PO BEDTIME [facility] Last Admin: 02/20/20 21:24 Dose: 300 mg Documented by: Cholecalciferol (Vitamin D3) 25 mcg PO DAILY [facility] Last Admin: 02/20/20 09:34 Dose: 25 mcg Documented by: Dicyclomine HCl (Bentyl) 20 mg PO QID [facility] Last Admin: 02/20/20 21:23 Dose: 20 mg Documented by: Docusate Sodium (Colace) 100 mg PO BID [facility] Last Admin: 02/20/20 21:23 Dose: 100 mg Documented by: Enoxaparin Sodium (Lovenox) 70 mg SUBCUT Q12H [facility] Last Admin: 02/20/20 21:28 Dose: 70 mg Documented by: Furosemide (Lasix) 40 mg PO DAILY [facility] Last Admin: 02/20/20 09:34 Dose: 40 mg Documented by: Lisinopril (Prinivil) 20 mg PO DAILY [facility] Last Admin: 02/20/20 09:34 Dose: 20 mg Documented by: Mometasone Furoate (Asmanex Hfa 200mcg) 0 gm INH BID [facility] Last Admin: 02/21/20 08:01 Dose: 1 puff Documented by: Pantoprazole Sodium (Protonix) 40 mg PO DAILY [facility] Last Admin: 02/20/20 09:34 Dose: 40 mg Documented by: Potassium Chloride (Klor-Con M20) 20 meq PO DAILY [facility] Last Admin: 02/20/20 09:34 Dose: 20 meq Documented by: Rosuvastatin Calcium (Crestor) 40 mg PO BEDTIME [facility] Last Admin: 02/20/20 21:24 Dose: 40 mg Documented by: Sertraline HCl (Zoloft) 50 mg PO BEDTIME [facility] Last Admin: 02/20/20 21:24 Dose: 50 mg Documented by: Sodium Chloride (Saline Flush) 10 ml FLUSH ONETIME PRN PRN Reason: IV FLUSH Last Admin: 02/16/20 14:25 Dose: 10 ml Documented by: Warfarin Sodium (Pharmacy To Dose - Warfarin) 1 dose PO ASDIRECTED PRN PRN Reason: RX TO DOSE WARFARIN Discontinued Medications Sodium Chloride (Normal Saline) 1,000 mls @ 999 mls/hr IV NOW STA Stop: 02/16/20 12:43 Last Admin: 02/16/20 12:10 Dose: 150 mls/hr Documented by: Phytonadione 10 mg/ Sodium (Chloride) 51 mls @ 100 mls/hr IV NOW ONE Stop: 02/16/20 16:34 Last Admin: 02/16/20 20:34 Dose: 100 mls/hr Documented by: Sodium Chloride (Normal Saline) 1,000 mls @ 125 mls/hr IV ASDIRECTED [facility] Last Admin: 02/17/20 03:29 Dose: 125 mls/hr Documented by: Magnesium Sulfate/Dextrose 1 (gm/ Premix) 100 mls @ 100 mls/hr IV ONETIME ONE Stop: 02/20/20 08:46 Last Admin: 02/20/20 09:31 Dose: 100 mls/hr Documented by: Mometasone Furoate (Asmanex Hfa 200mcg) 1 gm INH BID [facility] Non-Formulary Medication (Mometasone Furoate [Asmanex Hfa]) 1 puff INH BID [facility] Non-Formulary Medication (Warfarin) 2 mg PO DAILY [facility] Last Admin: 02/18/20 16:15 Dose: Not Given Documented by: Ondansetron HCl (Zofran) 4 mg IVPUSH ONETIME ONE Stop: 02/16/20 11:44 Last Admin: 02/16/20 12:11 Dose: 4 mg Documented by: Pantoprazole Sodium (Protonix Iv) 80 mg IVPUSH BOLUS ONE Stop: 02/16/20 16:10 Last Admin: 02/16/20 20:29 Dose: 80 mg Documented by: Pantoprazole Sodium (Protonix Iv) 40 mg IVPUSH Q12H [facility] Last Admin: 02/18/20 06:38 Dose: 40 mg Documented by: Sodium Chloride (Saline Flush) 10 ml FLUSH ASDIRECTED PRN PRN Reason: Keep Vein Open Last Admin: 02/16/20 12:11 Dose: 10 ml Documented by: Warfarin Sodium (Coumadin) 5 mg PO QPM [facility] Stop: 02/18/20 18:01 Last Admin: 02/18/20 18:46 Dose: 5 mg Documented by: Warfarin Sodium (Coumadin) 5 mg PO QPM [facility] Stop: 02/19/20 18:01 Last Admin: 02/19/20 17:15 Dose: 5 mg Documented by: Warfarin Sodium (Coumadin) 5 mg PO QPM [facility] Stop: 02/20/20 18:01 Last Admin: 02/20/20 18:08 Dose: 5 mg Documented by: - Exam General: Alert, Oriented, Cooperative, No Acute Distress HEENT: Pupils Equal, Pupils Reactive, EOMI, Mucous Membr. Moist/[place] Neck: Supple Lungs: Normal Respiratory Effort, Decreased Breath Sounds Cardiovascular: Regular Rate, Regular Rhythm GI/Abdominal Exam: Normal Bowel Sounds, Soft, Non-Tender, No Organomegaly, No Distention, No Abnormal Bruit (Female) Exam: Deferred Back Exam: Normal Inspection, Decreased Range of Motion Extremities: Normal Inspection, Normal Range of Motion, Non-Tender, No Pedal Edema, Normal Capillary Refill Peripheral Pulses: 2+: Dorsalis Pedis (L), Dorsalis Pedis (R) Skin: Warm, Dry, Intact Neurological: No New Focal Deficit, Normal Gait Psy/Mental Status: Alert, Normal Affect, Normal Mood Sepsis Event Note - Evaluation Sepsis Screening Result: No Definite Risk - Focused Exam Vital Signs: Vital Signs Temp Pulse Resp BP Pulse Ox 02/21/20 07:18 36.7 C 103 H 16 122/95 H 91 L 02/21/20 04:22 36.4 C 63 22 H 122/92 H 95 02/21/20 00:08 36.7 C 54 L 18 127/56 L 96 - Problem List Review Problem List Initiated/Reviewed/Updated: Yes - My Orders Last 24 Hours: My Active Orders 02/22/20 05:11 BMP [BASIC METABOLIC PANEL,BMP] [CHEM] AM CBC WITH AUTO DIFF [HEME] AM INR,PT,PROTHROMBIN TIME [COAG] AM MAGNESIUM [CHEM] AM - Plan Plan:: Assessment: Acute: 79-year-old female with acute on chronic anemia likely secondary to GI bleeding. Therapeutic INR 2 to 3 days after last warfarin dose * Previously admitted on 12/01/2019 with lower GI bleed following partial colonoscopy. * Hemoglobin 4.6 on admission--> repeat Hgb is 9.6 grams * INR 2.2. Patient states that last warfarin was a few days ago. She stopped taking it because she could not go to the clinic to get her INR checked. * It is likely that she was supratherapeutic and she has had a slow bleed over the last few days. Unfortunately, she is a poor historian and although she states she has not had a bowel movement in a couple of days that is not consistent with findings on exam and laboratory findings. * Received 3 units packed red blood cells in the emergency room * Discontinue IV fluids * Start clear liquid diet and advance as tolerated Mild Hyperchloremia, resolved * Cl is now 105 * Likely from GI bleed * Will monitor Subtherapeutic INR * Patient understood this would her 3rd episode of GI bleed while on ant icoagulations * Went over risks and benefits * Recommend to come off permanently but patient wants to stay in due to risk for stroke * Daughter was present at beside during our conversation regarding continuation of her warfarin * Dietary consult for Warfarin diet * INR is 1.62 today Hypophosphatemia, resolved * POS of 2.8 * Likely from GI loss and NPO status * She is now eating and drinking Hypomagnesemia, resolved * Mg of 1.7-->2.0 * Will replete and monitor Hypoalbuminemia * Likely from poor protein intake * [employer] consult AMS/Confusion, resolved * Alert and Awake * Orientated X1 * No stroke like symptoms * Not getting benzo and or narcs * UA/Covid both negative * No fever or chills * Offered head CT scan -patient refused Chronic: hypertension, hyperlipidemia, coronary artery disease, congestive heart failure, diastolic dysfunction, diabetes-duet controlled, COPD, CKD Stage 2-3 Plan: * Continue regular diet * Routine AM labs * INR daily check * Continue warfarin and lovenox 1 mg/kg BID until INR is at therapeutic range * [employer] consult * CODE STATUS: CPR * VTE prophylaxis with warfarin and lovenox * Discharge pending INR level and placement to [place] * LOS > 96 hrs due to subtherapeutic INR and discharge placement
[2020-02-21] MEDS: Furosemide 40 MG Tab PO SCH (09:06)
[2020-02-21] MEDS: Lisinopril 20 MG Tab PO SCH (09:06)
[2020-02-21] MEDS: Potassium Chloride 20 MEQ Tab.ER PO SCH (09:06)
[2020-02-21] MEDS: Enoxaparin 80 MG/0.8 ML Syringe SUBCUT SCH ×2 (09:06→21:11)
[2020-02-21] MEDS: Dicyclomine 10 MG Cap PO SCH ×4 (09:06→21:10)
[2020-02-21] MEDS: Docusate Sodium 100 MG Cap PO SCH ×2 (09:06→21:11)
[2020-02-21] MEDS: Pantoprazole 40 MG Tab.CR PO SCH (09:07)
[2020-02-21] MEDS: Cholecalciferol (Vitamin D3) 25 MCG Tab PO SCH (09:07)
[2020-02-21] MEDS ORDERED: Warfarin 5 MG Tab PO SCH (18:00)
[2020-02-21] MEDS: Allopurinol 300 MG Tab PO SCH (21:10)
[2020-02-21] MEDS: Rosuvastatin 10 MG Tab PO SCH (21:10)
[2020-02-21] MEDS: Sertraline 50 MG Tab PO SCH (21:11)
[2020-02-22 08:12] VITALS: BP 114/67; PULSE 72
[2020-02-22] MEDS: Lisinopril 20 MG Tab PO SCH (08:12)
[2020-02-22] MEDS: Furosemide 40 MG Tab PO SCH (08:12)
[2020-02-22] MEDS: Cholecalciferol (Vitamin D3) 25 MCG Tab PO SCH (08:12)
[2020-02-22] MEDS: Potassium Chloride 20 MEQ Tab.ER PO SCH (08:12)
[2020-02-22] MEDS: Dicyclomine 10 MG Cap PO SCH ×2 (08:13→12:45)
[2020-02-22] MEDS: Pantoprazole 40 MG Tab.CR PO SCH (08:13)
[2020-02-22] MEDS: Docusate Sodium 100 MG Cap PO SCH (08:13)
[2020-02-22] MEDS: Mometasone Furoate HFA 200 mcg/Puff 13 GM Inhaler INH SCH (08:47)
--- NOTE | 2020-02-22 09:42 | PCM.DCSUM1 ---
Discharge Summary - Hospital Course Brief History: This is a 79 yo elderly white female with past medical hx/o Cataract, HTN, HLD, CAD S/p Stent Placement and PCTA, S/p Henria Repair, Hx/o Arrhythmia, CHF, DVT, COPD/Asthma, Recurrent PNA, Noturnal Hypoxemia, GERD, Hx/o GI Bleed, Hiatal Henria, IBS, Hx/o H. Pylori, CKD Stage 3, OA/DJD, Gout, Osteoporosis, Left Sided Sciatica, Plantar Fascia Syndrome, CVA, Diabetic Neuropathy, DM2, Chornic Anemia, Mcc Anticogulation with Warfarin, BAMBI, Electrolytes Abnormality, Eczema, Anxiety and Depression who presented with multiple complaints and was admitted for Slow GI Bleed with Supratherapeutic INR. Diagnosis: Stroke: No Modified Clarence Scale: No Symptoms at All Modified Clarence Scale Score: 0 - Discharge Data Discharge Date: 02/22/20 Discharge Disposition: DC/Tfer to SNF 03 Condition: Good - Referral to Home Health Primary Care Physician: Shell Arambula MD - Patient Summary/Data Operative Procedure(s) Performed: None Complications: None Consults: Consultations 02/18/20 08:00 Consult to Ground Operations Superintendent [CONS] Routine 02/18/20 10:58 PT Evaluation and Treatment [CONS] Routine 02/18/20 10:59 OT Evaluation and Treatment [CONS] Routine Labs Pending at D/C: INR and CBC Hospital Course: Patient was primarily admitted for symptomatic lower GI bleed with presenting hemoglobin level of 4.6 grams. She had supratherapeutic INR that was somewhere between 4 and 5. She was on warfarin for long-term anticoagulation due to her chronic atrial fibrillation. She stopped taking it a few days prior to coming to the hospital. Upon admission, her warfarin was held and she received a one-time dose of 10 mg vitamin K as well as 3 units of packed red blood cells for initial management. She improved on this regimen. Her hospital course was fairly unremarkable and the rest of her chronic medical illness remained stable. During this hospitalization, we went over watchman device as a possible option for her if she were to rebleed after discharge. She was told she would need to go to [facility] as it would not be of benefit for her to get re-admitted here at this hospital. At the time of discharge, she was clinically stable with a recent hemoglobin level of 8.9 grams and an INR of 2.39. She will resume her home dose warfarin and to have a repeat INR and CBC next week. She was advised to follow-up with her PCP right after discharge. She was further advised to come back or seek immediate care at the nearest medical facility should her symptoms persist or get worse. - Patient Instructions Diet: Usual Diet as Tolerated, Diabetic Diet Activity: As Tolerated Driving: Do Not Drive Showering/Bathing: May Shower Notify Provider of: Fever, Increased Pain, Swelling and Redness, Nausea and/or Vomiting Other/Special Instructions: -Follow dischare instructions. -Resume all routine home meds. -Recommend repeat INR and CBC next week through your PCP's office. -Resume home activites as tolerated. -Seek immediate care if your symptoms per sist or get worse. -Follow up with your PCP in 1 week - Discharge Plan *PRESCRIPTION DRUG MONITORING PROGRAM REVIEWED*: Not Applicable *COPY OF PRESCRIPTION DRUG MONITORING REPORT IN PATIENT CHRISTOPHE: Not Applicable Home Medications: Home Meds Albuterol/Ipratropium [DuoNeb 3.0-0.5 MG/3 ML] 3 ml INH BID PRN 10/16/18 [History] Aspirin 81 mg PO DAILY 10/16/18 [History] Dicyclomine [Bentyl] 20 mg PO QID 10/16/18 [History] Furosemide 40 mg PO DAILY 10/16/18 [History] Nitroglycerin 0.4 mg PO Q5M PRN MDD 3 doses 10/16/18 [History] Pantoprazole [ProTONIX] 40 mg PO DAILY 10/16/18 [History] Potassium Chloride 20 meq PO DAILY 10/16/18 [History] Sertraline [Zoloft] 50 mg PO BEDTIME 10/16/18 [History] allopurinoL [Zyloprim] 300 mg PO BEDTIME 10/16/18 [History] Albuterol [Ventolin HFA] 2 puff INH BID PRN 11/20/19 [History] Cholecalciferol (Vitamin D3) [Vitamin D3] 1,000 mg PO DAILY 11/20/19 [History] Docusate Sodium [Colace] 100 mg PO BID 11/20/19 [History] Mometasone Furoate [Asmanex Hfa] 1 puff INH BID 11/20/19 [History] Rosuvastatin Calcium [Crestor] 40 mg PO BEDTIME 11/20/19 [History] lisinopriL [Lisinopril] 20 mg PO DAILY 11/20/19 [History] Warfarin [Coumadin] 2.5 mg PO TUFR 02/22/20 [History] Warfarin [Coumadin] 5 mg PO SUMOWETHSA 02/22/20 [History] Oxygen Therapy Mode: Room Air Patient Handouts: Bleeding Precautions When on Anticoagulant Therapy, Adult, Preventing Iron Deficiency Anemia, Adult, Gastrointestinal Bleeding, [id number] Referrals: Jabari Robins MD [Ordering Only Provider] - 02/29/20 11:30 am - Discharge Summary/Plan Comment DC Time >30 min.: No Discharge Summary/Plan Comment: Discharge to SNF/PR - General Info Date of Service: 02/22/20 Admission Dx/Problem (Free Text: Admission Diagnosis/Problem Admission Diagnosis/Problem Anemia Subjective Update: No overnight or acute issues issues. No BM yet. Her Hgb is at 8.7 and INR is 1.62 this morning. Functional Status: Reports: Pain Controlled, Tolerating Diet, Ambulating, Urinating - Review of Systems General: Denies: Fever, Weakness, Fatigue, Malaise, Chills HEENT: Denies: Headaches, Sore Throat Pulmonary: Denies: Shortness of Breath, Cough, Hemoptysis Cardiovascular: Denies: Dyspnea on Exertion, Lightheadedness Gastrointestinal: Denies: Abdominal Pain, Diarrhea, Hematochezia, Melena, Nausea, Vomiting Genitourinary: Reports: Frequency. Denies: Dysuria, Burning Musculoskeletal: Denies: Joint Pain Skin: Denies: Bruising, Pruritis, Rash Neurological: Denies: Confusion, Difficulty Walking, Weakness, Gait Disturbance Psychiatric: Denies: Depression, Anxiety - Patient Data Vitals - Most Recent: Last Vital Signs Temp 36.8 C 02/22/20 07:44 Pulse 72 02/22/20 07:44 Resp 16 02/22/20 07:44 BP 114/67 02/22/20 08:12 Pulse Ox 100 02/22/20 08:47 Orthostatic Blood Pressure [ 93/75 Standing] Orthostatic Blood Pressure [ 71/59 Sitting] Orthostatic Blood Pressure [ 134/72 Supine] Weight - Most Recent: 71.577 kg I&O - Last 24 hours: Intake & Output 02/21/20 02/22/20 02/22/20 22:59 06:59 14:59 Intake Total 500 800 Output Total 600 800 Balance -100 0 Lab Results - Last 24 hrs: Laboratory Results - last 24 hr 02/21/20 02/21/20 02/22/20 Range/Units 11:05 16:34 05:53 WBC (3.98-10.04) K/mm3 RBC (3.98-5.22) M/mm3 Hgb (11.2-15.7) gm/dl Hct (34.1-44.9) % MCV (79.4-94.8) fl MCH (25.6-32.2) pg MCHC (32.2-35.5) g/dl RDW Std Deviation (36.4-46.3) fL Plt Count (182-369) K/mm3 MPV (9.4-12.3) fl Neut % (Auto) (34.0-71.1) % Lymph % (Auto) (19.3-51.7) % Cole % (Auto) (4.7-12.5) % Eos % (Auto) (0.7-5.8) Baso % (Auto) (0.1-1.2) % Neut # (Auto) (1.56-6.13) K/mm3 Lymph # (Auto) (1.18-3.74) K/mm3 Cole # (Auto) (0.24-0.36) K/mm3 Eos # (Auto) (0.04-0.36) K/mm3 Baso # (Auto) (0.01-0.08) K/mm3 Manual Slide Review PT (9.7-12.0) SECONDS INR Sodium (136-145) mEq/L Potassium (3.5-5.1) mEq/L Chloride (98-107) mEq/L Carbon Dioxide (21-32) mEq/L Anion Gap (5-15) BUN (7-18) mg/dL Creatinine (0.55-1.02) mg/dL Est Cr Clr Drug Dosing mL/min Estimated GFR (MDRD) (>60) mL/min BUN/Creatinine Ratio (14-18) Glucose (83-115) mg/dL POC Glucose 111 H 214 H 121 H (83-110) mg/dL Calcium (8.5-10.1) mg/dL Magnesium (1.8-2.4) mg/dl SARS-CoV-2 RNA (AMINA) (NEGATIVE) 02/22/20 02/22/20 02/22/20 Range/Units 06:10 06:10 06:15 WBC 7.84 (3.98-10.04) K/mm3 RBC 3.85 L (3.98-5.22) M/mm3 Hgb 8.9 L (11.2-15.7) gm/dl Hct 29.9 L (34.1-44.9) % MCV 77.7 L (79.4-94.8) fl MCH 23.1 L (25.6-32.2) pg MCHC 29.8 L (32.2-35.5) g/dl RDW Std Deviation 62.1 H (36.4-46.3) fL Plt Count 243 (182-369) K/mm3 MPV 10.4 (9.4-12.3) fl Neut % (Auto) 53.4 (34.0-71.1) % Lymph % (Auto) 33.4 (19.3-51.7) % Cole % (Auto) 10.6 (4.7-12.5) % Eos % (Auto) 2.0 (0.7-5.8) Baso % (Auto) 0.3 (0.1-1.2) % Neut # (Auto) 4.19 (1.56-6.13) K/mm3 Lymph # (Auto) 2.62 (1.18-3.74) K/mm3 Cole # (Auto) 0.83 H (0.24-0.36) K/mm3 Eos # (Auto) 0.16 (0.04-0.36) K/mm3 Baso # (Auto) 0.02 (0.01-0.08) K/mm3 Manual Slide Review Abnormal smear PT 25.1 H D (9.7-12.0) SECONDS INR 2.39 Sodium 139 (136-145) mEq/L Potassium 3.9 (3.5-5.1) mEq/L Chloride 104 (98-107) mEq/L Carbon Dioxide 29 (21-32) mEq/L Anion Gap 9.9 (5-15) BUN 32 H (7-18) mg/dL Creatinine 1.3 H (0.55-1.02) mg/dL Est Cr Clr Drug Dosing 32.09 mL/min Estimated GFR (MDRD) 40 (>60) mL/min BUN/Creatinine Ratio 24.6 H (14-18) Glucose 113 (83-115) mg/dL POC Glucose (83-110) mg/dL Calcium 10.1 (8.5-10.1) mg/dL Magnesium 1.9 (1.8-2.4) mg/dl SARS-CoV-2 RNA (AMINA) (NEGATIVE) 02/22/20 Range/Units 06:28 WBC (3.98-10.04) K/mm3 RBC (3.98-5.22) M/mm3 Hgb (11.2-15.7) gm/dl Hct (34.1-44.9) % MCV (79.4-94.8) fl MCH (25.6-32.2) pg MCHC (32.2-35.5) g/dl RDW Std Deviation (36.4-46.3) fL Plt Count (182-369) K/mm3 MPV (9.4-12.3) fl Neut % (Auto) (34.0-71.1) % Lymph % (Auto) (19.3-51.7) % Cole % (Auto) (4.7-12.5) % Eos % (Auto) (0.7-5.8) Baso % (Auto) (0.1-1.2) % Neut # (Auto) (1.56-6.13) K/mm3 Lymph # (Auto) (1.18-3.74) K/mm3 Cole # (Auto) (0.24-0.36) K/mm3 Eos # (Auto) (0.04-0.36) K/mm3 Baso # (Auto) (0.01-0.08) K/mm3 Manual Slide Review PT (9.7-12.0) SECONDS INR Sodium (136-145) mEq/L Potassium (3.5-5.1) mEq/L Chloride (98-107) mEq/L Carbon Dioxide (21-32) mEq/L Anion Gap (5-15) BUN (7-18) mg/dL Creatinine (0.55-1.02) mg/dL Est Cr Clr Drug Dosing mL/min Estimated GFR (MDRD) (>60) mL/min BUN/Creatinine Ratio (14-18) Glucose (83-115) mg/dL POC Glucose (83-110) mg/dL Calcium (8.5-10.1) mg/dL Magnesium (1.8-2.4) mg/dl SARS-CoV-2 RNA (AMINA) Negative (NEGATIVE) Med Orders - Current: Current Medications Acetaminophen (Tylenol) 650 mg PO Q4H PRN PRN Reason: Pain (Mild 1-3)/fever Acetaminophen (Tylenol) 650 mg RECTAL Q4H PRN PRN Reason: Pain (mild 1-3) Albuterol (Proventil Hfa) 0 gm INH BID PRN PRN Reason: Shortness of Breath Albuterol/Ipratropium (Duoneb 3.0-0.5 Mg/3 Ml) 3 ml INH BID PRN PRN Reason: Shortness of Breath Allopurinol (Zyloprim) 300 mg PO BEDTIME [facility] Last Admin: 02/21/20 21:10 Dose: 300 mg Documented by: Cholecalciferol (Vitamin D3) 25 mcg PO DAILY [facility] Last Admin: 02/22/20 08:12 Dose: 25 mcg Documented by: Dicyclomine HCl (Bentyl) 20 mg PO QID [facility] Last Admin: 02/22/20 08:13 Dose: 20 mg Documented by: Docusate Sodium (Colace) 100 mg PO BID [facility] Last Admin: 02/22/20 08:13 Dose: 100 mg Documented by: Furosemide (Lasix) 40 mg PO DAILY [facility] Last Admin: 02/22/20 08:12 Dose: 40 mg Documented by: Lisinopril (Prinivil) 20 mg PO DAILY [facility] Last Admin: 02/22/20 08:12 Dose: 20 mg Documented by: Mometasone Furoate (Asmanex Hfa 200mcg) 0 gm INH BID [facility] Last Admin: 02/22/20 08:47 Dose: 1 puff Documented by: Pantoprazole Sodium (Protonix) 40 mg PO DAILY [facility] Last Admin: 02/22/20 08:13 Dose: 40 mg Documented by: Potassium Chloride (Klor-Con M20) 20 meq PO DAILY [facility] Last Admin: 02/22/20 08:12 Dose: 20 meq Documented by: Rosuvastatin Calcium (Crestor) 40 mg PO BEDTIME [facility] Last Admin: 02/21/20 21:10 Dose: 40 mg Documented by: Sertraline HCl (Zoloft) 50 mg PO BEDTIME [facility] Last Admin: 02/21/20 21:11 Dose: 50 mg Documented by: Warfarin Sodium (Pharmacy To Dose - Warfarin) 1 dose PO ASDIRECTED PRN PRN Reason: RX TO DOSE WARFARIN Warfarin Sodium (Coumadin) 2.5 mg PO QPM [facility] Stop: 02/22/20 18:01 Discontinued Medications Enoxaparin Sodium (Lovenox) 70 mg SUBCUT Q12H [facility] Last Admin: 02/21/20 21:11 Dose: 70 mg Documented by: Sodium Chloride (Normal Saline) 1,000 mls @ 999 mls/hr IV NOW STA Stop: 02/16/20 12:43 Last Admin: 02/16/20 12:10 Dose: 150 mls/hr Documented by: Phytonadione 10 mg/ Sodium (Chloride) 51 mls @ 100 mls/hr IV NOW ONE Stop: 02/16/20 16:34 Last Admin: 02/16/20 20:34 Dose: 100 mls/hr Documented by: Sodium Chloride (Normal Saline) 1,000 mls @ 125 mls/hr IV ASDIRECTED [facility] Last Admin: 02/17/20 03:29 Dose: 125 mls/hr Documented by: Magnesium Sulfate/Dextrose 1 (gm/ Premix) 100 mls @ 100 mls/hr IV ONETIME ONE Stop: 02/20/20 08:46 Last Admin: 02/20/20 09:31 Dose: 100 mls/hr Documented by: Mometasone Furoate (Asmanex Hfa 200mcg) 1 gm INH BID [facility] Non-Formulary Medication (Mometasone Furoate [Asmanex Hfa]) 1 puff INH BID [facility] Non-Formulary Medication (Warfarin) 2 mg PO DAILY [facility] Last Admin: 02/18/20 16:15 Dose: Not Given Documented by: Ondansetron HCl (Zofran) 4 mg IVPUSH ONETIME ONE Stop: 02/16/20 11:44 Last Admin: 02/16/20 12:11 Dose: 4 mg Documented by: Pantoprazole Sodium (Protonix Iv) 80 mg IVPUSH BOLUS ONE Stop: 02/16/20 16:10 Last Admin: 02/16/20 20:29 Dose: 80 mg Documented by: Pantoprazole Sodium (Protonix Iv) 40 mg IVPUSH Q12H [facility] Last Admin: 02/18/20 06:38 Dose: 40 mg Documented by: Sodium Chloride (Saline Flush) 10 ml FLUSH ASDIRECTED PRN PRN Reason: Keep Vein Open Last Admin: 02/16/20 12:11 Dose: 10 ml Documented by: Sodium Chloride (Saline Flush) 10 ml FLUSH ONETIME PRN PRN Reason: IV FLUSH Last Admin: 02/16/20 14:25 Dose: 10 ml Documented by: Warfarin Sodium (Coumadin) 5 mg PO QPM [facility] Stop: 02/18/20 18:01 Last Admin: 02/18/20 18:46 Dose: 5 mg Documented by: Warfarin Sodium (Coumadin) 5 mg PO QPM [facility] Stop: 02/19/20 18:01 Last Admin: 02/19/20 17:15 Dose: 5 mg Documented by: Warfarin Sodium (Coumadin) 5 mg PO QPM [facility] Stop: 02/20/20 18:01 Last Admin: 02/20/20 18:08 Dose: 5 mg Documented by: Warfarin Sodium (Coumadin) 5 mg PO QPM [facility] Stop: 02/21/20 18:01 Last Admin: 02/21/20 18:12 Dose: 5 mg Documented by: - Exam General: Reports: Alert, Oriented, Cooperative, No Acute Distress HEENT: Reports: Pupils Equal, Pupils Reactive, EOMI, Mucous Membr. Moist/[place] Neck: Reports: Supple Lungs: Reports: Normal Respiratory Effort, Decreased Breath Sounds Cardiovascular: Reports: Irregular Rhythm GI/Abdominal Exam: Normal Bowel Sounds, Soft, Non-Tender, No Organomegaly, No Distention, No Abnormal Bruit (Female) Exam: Deferred Rectal (Female) Exam: Deferred Back Exam: Reports: Normal Inspection, Decreased Range of Motion Extremities: Normal Inspection, Normal Range of Motion, Non-Tender, No Pedal Edema, Normal Capillary Refill Skin: Reports: Warm, Dry, Intact, Ecchymosis Neurological: Reports: No New Focal Deficit, Normal Gait Psy/Mental Status: Reports: Alert, Normal Affect, Normal Mood
[2020-02-22] MEDS ORDERED: Warfarin 2.5 MG Tab PO SCH (18:00)
== END 2020-02-22 13:10 | DRG 378 ==
LOC: JD.ED 11:01 → JD.MS 15:02
PROVIDERS: ADMIT Family Medicine; ATTEND Family Medicine
DX: K92.2 Gastrointestinal hemorrhage, unspecified (principal); D64.9 Anemia, unspecified; I48.20 Chronic atrial fibrillation, unspecified; H54.7 Unspecified visual loss; I13.0 Hypertensive heart and chronic kidney disease with heart failure and stage 1 through stage 4 chronic kidney disease, or unspecified chronic kidney disease; I50.32 Chronic diastolic (congestive) heart failure; E78.5 Hyperlipidemia, unspecified; I25.10 Atherosclerotic heart disease of native coronary artery without angina pectoris; Z98.42 Cataract extraction status, left eye; Z98.41 Cataract extraction status, right eye; N18.30 Chronic kidney disease, stage 3 unspecified; Z98.890 Other specified postprocedural states; Z86.718 Personal history of other venous thrombosis and embolism; Z79.01 Long term (current) use of anticoagulants; Z87.01 Personal history of pneumonia (recurrent); E78.00 Pure hypercholesterolemia, unspecified; Z95.5 Presence of coronary angioplasty implant and graft; K21.9 Gastro-esophageal reflux disease without esophagitis; M54.32 Sciatica, left side; Z86.73 Personal history of transient ischemic attack (TIA), and cerebral infarction without residual deficits; D50.9 Iron deficiency anemia, unspecified; J44.9 Chronic obstructive pulmonary disease, unspecified; Z79.4 Long term (current) use of insulin; E11.22 Type 2 diabetes mellitus with diabetic chronic kidney disease; F41.9 Anxiety disorder, unspecified; E11.40 Type 2 diabetes mellitus with diabetic neuropathy, unspecified; Z90.710 Acquired absence of both cervix and uterus; F32.9 Major depressive disorder, single episode, unspecified; E87.8 Other disorders of electrolyte and fluid balance, not elsewhere classified; E83.39 Other disorders of phosphorus metabolism; E83.42 Hypomagnesemia; D41.9 Neoplasm of uncertain behavior of unspecified urinary organ; M19.90 Unspecified osteoarthritis, unspecified site; M81.0 Age-related osteoporosis without current pathological fracture; M10.9 Gout, unspecified; Z87.891 Personal history of nicotine dependence; Z88.0 Allergy status to penicillin; Z91.040 Latex allergy status; Z79.82 Long term (current) use of aspirin; Z79.899 Other long term (current) drug therapy; Z20.822 Contact with and (suspected) exposure to COVID-19
CPT/HCPCS: 36415; 36430; 71045; 74176; 80053; 82728; 83540; 83690; 83735; 84466; 84484; 85025; 85610; 86140; 86850; 86900; 86901; 86922; 93005; 96361; 96374; 99285; J2405; J7030; P9016; U0002; 36410; 80048; 81001; 82962; 84100; 93010; 94640; 94760; 94761; 97110-GP; 97112-GP; 97116-GP; 97161-GP; 99222; 99232; 99233; 99238; A9270-GY; C9113; J1650; J3430; J3475; Q9963

== ENCOUNTER 2020-04-14 10:06 | Observation (INO) | payer MEDICARE, MEDICAID ==
--- NOTE | 2020-04-14 10:32 | EDM.PDOC ---
ED HPI GENERAL MEDICAL PROBLEM - General Chief Complaint: IV Access Related Stated Complaint: LOW HEMOGLOBIN SENT BY [facility] Time Seen by Provider: 04/14/20 10:25 Source of Information: Reports: Patient, Family (daughter) History Limitations: Reports: No Limitations - History of Present Illness INITIAL COMMENTS - FREE TEXT/NARRATIVE: 79-year-old female presents to the ED at the request of [facility] physicians. She presented to the lab there this morning for routine labs was found to have a hemoglobin of only 4.4 I believe. We do not have a copy of the results. Patient is definitely symptomatic feeling lightheaded dizzy upon standing and feels like she is going to pass out at any time. Extreme dyspnea on minimal exertion such as even getting her clothes on. She has not appreciated any dark black tarry stools and denies any significant dyspepsia that are difficult to swallow or significant heartburn or GERD. Apparently she had blood transfusions on was 3 times in the past. The most recent was 4 months ago. She has had an attempt at a lower GI endoscopy by Dr. Mchugh but apparently was not a complete colonoscopy due to difficulty passing the scope. No bleeding source was found in the lower rectum. Patient is on Coumadin for many years due to a combination of having a DVT behind her left knee in the past as well as coronary artery stent. She apparently has an appointment to see Dr. Morrison-- tree [facility] tomorrow. She has valvular heart disease as well as arrhythmias. She reports her weight is maintained. Of note the patient has received both of her COVID-19 vaccination shots. Onset: Gradual, Unknown/Unsure, Other (Appears to have developed a gradual anemia with occult chronic blood loss.) Duration: Week(s):, Chronic, Getting Worse ([place] well for several weeks.) Location: Reports: Generalized (Normalized weakness, lightheadedness, dizziness, shortness of breath on minimal exertion.) Quality: Reports: Other Severity: Severe (Primarily dyspnea on minimal exertion and lightheaded and dizziness upon standing or walking.) Improves with: Reports: Rest Worsens with: Reports: Movement (Is with trying to walk or even get dressed.) Context: Denies: Activity, Exercise, Lifting, Sick Contact, Trauma, Other Associated Symptoms: Reports: Malaise, Shortness of Breath, Weakness. Denies: No Other Symptoms, Confusion, Chest Pain, Cough, cough w sputum, Diaphoresis, Fever/Chills, Headaches, Loss of Appetite, Nausea/Vomiting, Rash, Seizure (At rest. 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 (see below) (The medications as prescribed.) - Related Data Allergies Allergy/AdvReac Type Severity Reaction Status Date / Time Penicillins Allergy Intermediate Swelling Verified 04/14/20 10:16 latex Allergy Rash Verified 04/14/20 10:16 pineapple Allergy Rash Verified 04/14/20 10:16 Home Meds: Home Meds Albuterol/Ipratropium [DuoNeb 3.0-0.5 MG/3 ML] 3 ml INH BID PRN 10/16/18 [History] Aspirin 81 mg PO DAILY 10/16/18 [History] Dicyclomine [Bentyl] 20 mg PO QID 10/16/18 [History] Furosemide 40 mg PO DAILY 10/16/18 [History] Nitroglycerin 0.4 mg PO Q5M PRN MDD 3 doses 10/16/18 [History] Pantoprazole [ProTONIX] 40 mg PO DAILY 10/16/18 [History] Potassium Chloride 20 meq PO DAILY 10/16/18 [History] Sertraline [Zoloft] 50 mg PO BEDTIME 10/16/18 [History] allopurinoL [Zyloprim] 300 mg PO BEDTIME 10/16/18 [History] Albuterol [Ventolin HFA] 2 puff INH BID PRN 11/20/19 [History] Docusate Sodium [Colace] 100 mg PO BID 11/20/19 [History] Mometasone Furoate [Asmanex Hfa] 1 puff INH BID 11/20/19 [History] Rosuvastatin Calcium [Crestor] 40 mg PO BEDTIME 11/20/19 [History] lisinopriL [Lisinopril] 20 mg PO DAILY 11/20/19 [History] Warfarin [Coumadin] 2.5 mg PO TUFR 02/22/20 [History] Warfarin [Coumadin] 5 mg PO SUMOWETHSA 02/22/20 [History] Fluticasone Propionate [Flovent HFA 220 MCG] 1 puff PO BID 04/14/20 [History] Past Medical History HEENT History: Reports: Cataract, Glaucoma, Impaired Vision Other HEENT History: wears eyeglasses Cardiovascular History: Reports: Angina, Blood Clots/VTE/DVT (DVT behind her left knee.), CAD, Heart Failure, Heart Murmur, High Cholesterol, Hypertension, S tents Other Cardiovascular History: carotid artery disease, ventricular bigeminy, bradycardia, arrhythmia, murmur, diastolic dysfunction, CHF, DVT, hypotension Respiratory History: Reports: Asthma, COPD, Pneumonia, Recurrent Other Respiratory History: Has oxygen at home at night - 1.5 L per NC. Gastrointestinal History: Reports: GERD, GI Bleed, Hemorrhoids, Helicobacter Pylori, Hiatal Hernia, Irritable Bowel Syndrome Genitourinary History: Reports: Chronic Renal Insuffiency Other Genitourinary History: renal disease, CKD III LEATHERSMITH History: Reports: Other LEATHERSMITH History: hysterectomy Musculoskeletal History: Reports: Arthritis, Back Pain, Chronic, Gout, Osteoarthritis, Osteoporosis Other Musculoskeletal History: Left sided sciatica, plantar fascia syndrome Neurological History: Reports: CVA, Neuropathy, Diabetic, Other (See Below) Other Neuro History: dizziness Psychiatric History: Reports: Anxiety, Depression Endocrine/Metabolic History: Reports: Diabetes, Type II, Obesity/BMI 30+ Hematologic History: Reports: Anemia, Anticoagulation Therapy, Blood Transfusion(s), Iron Deficiency, Other (See Below) Other Hematologic History: hypercalcemia, hyperkalemia Immunologic History: Reports: None Oncologic (Cancer) History: Reports: None Dermatologic History: Reports: Eczema Other Dermatologic History: eczema - Infectious Disease History Infectious Disease History: Reports: Influenza, RSV - Past Surgical History Head Surgeries/Procedures: Reports: None HEENT Surgical History: Reports: Cataract Surgery, Eye Surgery Other HEENT Surgeries/Procedures: Pt. has history of cataract surgery. Cardiovascular Surgical History: Reports: Coronary Artery Stent, Percutaneous Transluminal Angioplasty Other Cardiovascular Surgeries/Procedures: Doctors have been keeping an eye on her left and right carotid - q6 months has them checked. Respiratory Surgical History: Reports: None GI Surgical History: Reports: Colonoscopy, Hernia Repair/Other Other GI Surgeries/Procedures: hemorhoidectomy Female Surgical History: Reports: Hysterectomy Other Female Surgeries/Procedures: Endocrine Surgical History: Reports: None Neurological Surgical History: Reports: None Musculoskeletal Surgical History: Reports: Carpal Tunnel Oncologic Surgical History: Reports: None Social & Family History - Family History Family Medical History: No Pertinent Family History HEENT: Reports: Hearing Impairment Cardiac: Reports: High Cholesterol, Hypertension Respiratory: Reports: Asthma : Reports: Renal Disease/Insufficiency Musculoskeletal: Reports: Arthritis, Back pain, Chronic, Gout Neurological: Reports: Seizure Psychiatric: Reports: Schizophrenia Endocrine/Metabolic: Reports: Diabetes, Type I, Diabetes, type II, Obesity/MBI 30+ Dermatologic: Reports: Eczema Oncologic: Reports: Bone, Lung - Caffeine Use Caffeine Use: Reports: Coffee Other Caffeine Use: cup of coffee every morning Caffeine Use Comment: Drinks about 1 cup of coffee and 1-2 cups of iced tea a day. - Living Situation & Occupation Living situation: Reports: , Alone Occupation: Retired ED ROS GENERAL - Review of Systems Review Of Systems: See Below Constitutional: Reports: Malaise, Weakness, Fatigue, Decreased Appetite, Other (If she is holding her weight.). Denies: Fever, Chills HEENT: Reports: Glasses Respiratory: Reports: Shortness of Breath. Denies: Wheezing, Pleuritic Chest Pain, Cough, Sputum, Hemoptysis Cardiovascular: Reports: Dyspnea on Exertion (Edema at the ankles bilaterally.), Edema, Lightheadedness, Palpitations ( Much worse the last 3 weeks.). Denies: Chest Pain, Blood Pressure Problem, Claudication, Orthopnea Endocrine: Reports: Fatigue GI/Abdominal: Reports: Decreased Appetite, Nausea (Patient upset stomach with nausea), Other (No significant reported problems with GERD.). Denies: Consti pation, Diarrhea, Hematemesis, Hematochezia, Melena : Reports: Frequency ( with incontinence both urge and stress components.), Incontinence (Urinary frequency) Musculoskeletal: Reports: Neck Pain (Knees hips low back neck and shoulders at times.), Back Pain, Joint Pain Skin: Reports: Pallor, Bruising. Denies: Cyanosis, Jaundice, Mottled, Diaphoresis, Erythema, Wound, Burn(s), Lesions, Lumps, Urticaria Neurological: Reports: Dizziness, Difficulty Walking, Weakness. Denies: Syncope (Lightheadedness with standing.) Psychiatric: Reports: Anxiety Hematologic/Lymphatic: Reports: No Symptoms Immunologic: Reports: No Symptoms ED EXAM, GENERAL - Physical Exam Exam: See Below Exam Limited By: No Limitations General Appearance: Alert, WD/WN, No Apparent Distress, Other (Patient is quite pallid in appearance. Temperature is 36.6 heart rate 96 and sinus respiratory 14 with O2 sat 100% room air BP 120/57.) Eye Exam: Bilateral Eye: Normal Inspection, PERRL (Marked blepharal pallor. No scleral icterus.) Throat/Mouth: Normal Inspection, Normal Oropharynx, Other Head: Atraumatic, Normocephalic (To her lips and tongue.) Neck: Limited Range of Motion, Tender Lateral (Pedis on movement.). No: Lymphadenopathy (L) ( She reports tenderness is lateral cervical spine no worse than normal.), Lymphadenopathy (R) Respiratory/Chest: No Respiratory Distress, No Accessory Muscle Use, Decreased Breath Sounds (Decreased breath sounds to both posterior lung casper.), Rales (Few crackles left base which seem to clear with deep breathing suggesting atelectasis.) Cardiovascular: Regular Rate, Rhythm, No Rub, Systolic Murmur (Grade 2 best heard at the left lower sternal border compatible with aortic stenosis.). No: Normal Peripheral Pulses, No Edema, No Gallop Peripheral Pulses: 1+: Posterior Tibial (L), Posterior Tibial (R), Dorsalis Pedis (L), Dorsalis Pedis (R), 2+: Carotid (L), Carotid (R) GI/Abdominal: Normal Bowel Sounds, Soft, Non-Tender, No Organomegaly, No Mass, Pelvis Stable. No: Guarding, Rigid, Tender Back Exam: Normal Inspection, Full Range of Motion. No: CVA Tenderness (L), CVA Tenderness (R) Extremities: Normal Inspection, Joint Swelling (Does have osteoarthritic changes both knees. Limited internal and external rotation of both hips.), Other (Edema at the ankles bilaterally.) Neurological: Alert, Oriented, CN II-XII Intact, Normal Cognition Psychiatric: Anxious Skin Exam: Warm, Dry, Intact, Pallor (Marked pallor.) #1 Interpretation EKG Date: 04/21/20 Time: 11:35 Rhythm: NSR Rate (Beats/Min): 80 (Frequent unifocal PVCs) [place]: Normal P-Wave: Present (With first-degree AV block left atrial hypertrophy) QRS: Other (Initial poor R wave progression) ST-T: Other QT: Prolonged (Moderately prolonged) EKG Interpretation Comments: Abnormal ECG Course - Vital Signs Last Recorded V/S: Last Vital Signs Temp 36.3 C 03/08/21 13:50 Pulse 86 04/14/20 13:50 Resp 21 H 04/14/20 13:50 BP 132/65 04/14/20 13:50 Pulse Ox 100 04/14/20 10:17 - Orders/Labs/Meds Orders: Active Orders 24 hr Category Date Time Status Admission Status [Patient Status] [ADT] Routine ADT 04/14/20 13:56 Active EKG Documentation Completion [RC] STAT Care 04/14/20 10:26 Active CORONAVIRUS COVID-19 AMINA [MOLEC] Stat Lab 04/14/20 13:51 Ordered PACKED CELLS [RED BLOOD CELLS LP] [BBK] Stat Lab 04/14/20 10:47 Results TYPE AND SCREEN [BBK] Stat Lab 04/14/20 10:47 Results Sodium Chloride 0.9% [Normal Saline] 1,000 ml Med 04/14/20 10:45 Active IV ASDIRECTED Transfuse PRBC [Transfuse Red Blood Cells] [COMM] Oth 04/14/20 12:26 Ordered Routine Medication Orders Sodium Chloride (Normal Saline) 1,000 mls @ 75 mls/hr IV ASDIRECTED LUCI Last Admin: 04/14/20 11:09 Dose: 75 mls/hr Documented by: HUAN Labs: Laboratory Tests 04/14/20 04/14/20 04/14/20 Range/Units 10:44 10:47 10:47 WBC 9.44 (3.98-10.04) K/mm3 RBC 2.58 L (3.98-5.22) M/mm3 Hgb 5.1 L* D (11.2-15.7) gm/dl Hct 18.8 L (34.1-44.9) % MCV 72.9 L D (79.4-94.8) fl MCH 19.8 L (25.6-32.2) pg MCHC 27.1 L (32.2-35.5) g/dl RDW Std Deviation 52.9 H (36.4-46.3) fL Plt Count 323 D (182-369) K/mm3 MPV 10.0 (9.4-12.3) fl Neut % (Auto) 57.4 (34.0-71.1) % Lymph % (Auto) 26.3 (19.3-51.7) % [place] % (Auto) 10.4 (4.7-12.5) % Eos % (Auto) 5.1 (0.7-5.8) Baso % (Auto) 0.6 (0.1-1.2) % Neut # (Auto) 5.42 (1.56-6.13) K/mm3 Lymph # (Auto) 2.48 (1.18-3.74) K/mm3 [place] # (Auto) 0.98 H (0.24-0.36) K/mm3 Eos # (Auto) 0.48 H (0.04-0.36) K/mm3 Baso # (Auto) 0.06 (0.01-0.08) K/mm3 Manual Slide Review Abnormal smear Percent Retic (0.50-1.70) % PT 19.4 H (9.7-12.0) SECONDS INR 1.83 APTT 31.5 H (21.7-31.4) SECONDS Sodium (136-145) mEq/L Potassium (3.5-5.1) mEq/L Chloride (98-107) mEq/L Carbon Dioxide (21-32) mEq/L Anion Gap (5-15) BUN (7-18) mg/dL Creatinine (0.55-1.02) mg/dL Est Cr Clr Drug Dosing mL/min Estimated GFR (MDRD) (>60) mL/min BUN/Creatinine Ratio (14-18) Glucose (83-115) mg/dL Calcium (8.5-10.1) mg/dL Magnesium (1.8-2.4) mg/dl Iron 10 L (50-170) ug/dL TIBC 408 H (100-400) ug/dL % Saturation 2 L (20-55) % Transferrin 326 (202-364) mg/dL Total Bilirubin (0.2-1.0) mg/dL AST (15-37) U/L ALT (14-59) U/L Alkaline Phosphatase (46-116) U/L Troponin I (0.00-0.056) ng/mL C-Reactive Protein (<1.0) mg/dL NT-Pro-B Natriuret Pep (0-450) pg/mL Total Protein (6.4-8.2) g/dl Albumin (3.4-5.0) g/dl Globulin gm/dL Albumin/Globulin Ratio (1-2) TSH 3rd Generation (0.358-3.74) uIU/mL Urine Color (Yellow) Urine Appearance (Clear) Urine pH (5.0-8.0) Ur Specific [place] (1.005-1.030) Urine Protein (Negative) Urine Glucose (UA) (Negative) Urine Ketones (Negative) Urine Occult Blood (Negative) Urine Nitrite (Negative) Urine Bilirubin (Negative) Urine Urobilinogen (0.2-1.0) Ur Leukocyte Esterase (Negative) U Hyaline Cast (Auto) (0-5) /lpf Urine RBC (0-5) /hpf Urine WBC (0-5) /hpf Ur Squamous Epith Cells (0-5) /hpf Urine Bacteria (FEW) /hpf Urine Mucus (FEW) /hpf Blood Type Gel Antibody Screen Crossmatch 04/14/20 04/14/20 04/14/20 Range/Units 10:47 10:47 10:47 WBC (3.98-10.04) K/mm3 RBC (3.98-5.22) M/mm3 Hgb (11.2-15.7) gm/dl Hct (34.1-44.9) % MCV (79.4-94.8) fl MCH (25.6-32.2) pg MCHC (32.2-35.5) g/dl RDW Std Deviation (36.4-46.3) fL Plt Count (182-369) K/mm3 MPV (9.4-12.3) fl Neut % (Auto) (34.0-71.1) % Lymph % (Auto) (19.3-51.7) % [place] % (Auto) (4.7-12.5) % Eos % (Auto) (0.7-5.8) Baso % (Auto) (0.1-1.2) % Neut # (Auto) (1.56-6.13) K/mm3 Lymph # (Auto) (1.18-3.74) K/mm3 [place] # (Auto) (0.24-0.36) K/mm3 Eos # (Auto) (0.04-0.36) K/mm3 Baso # (Auto) (0.01-0.08) K/mm3 Manual Slide Review Percent Retic (0.50-1.70) % PT (9.7-12.0) SECONDS INR APTT (21.7-31.4) SECONDS Sodium 137 (136-145) mEq/L Potassium 4.4 (3.5-5.1) mEq/L Chloride 102 (98-107) mEq/L Carbon Dioxide 24 (21-32) mEq/L Anion Gap 15.4 H (5-15) BUN 39 H (7-18) mg/dL Creatinine 2.0 H (0.55-1.02) mg/dL Est Cr Clr Drug Dosing 20.86 mL/min Estimated GFR (MDRD) 24 (>60) mL/min BUN/Creatinine Ratio 19.5 H (14-18) Glucose 104 (83-115) mg/dL Calcium 10.1 (8.5-10.1) mg/dL Magnesium 2.2 (1.8-2.4) mg/dl Iron (50-170) ug/dL TIBC (100-400) ug/dL % Saturation (20-55) % Transferrin (202-364) mg/dL Total Bilirubin 0.3 (0.2-1.0) mg/dL AST 23 (15-37) U/L ALT 24 (14-59) U/L Alkaline Phosphatase 69 (46-116) U/L Troponin I 0.020 (0.00-0.056) ng/mL C-Reactive Protein 1.1 H* (<1.0) mg/dL NT-Pro-B Natriuret Pep 4173 H (0-450) pg/mL Total Protein 6.6 (6.4-8.2) g/dl Albumin 2.7 L (3.4-5.0) g/dl Globulin 3.9 gm/dL Albumin/Globulin Ratio 0.7 L (1-2) TSH 3rd Generation (0.358-3.74) uIU/mL Urine Color (Yellow) Urine Appearance (Clear) Urine pH (5.0-8.0) Ur Specific [place] (1.005-1.030) Urine Protein (Negative) Urine Glucose (UA) (Negative) Urine Ketones (Negative) Urine Occult Blood (Negative) Urine Nitrite (Negative) Urine Bilirubin (Negative) Urine Urobilinogen (0.2-1.0) Ur Leukocyte Esterase (Negative) U Hyaline Cast (Auto) (0-5) /lpf Urine RBC (0-5) /hpf Urine WBC (0-5) /hpf Ur Squamous Epith Cells (0-5) /hpf Urine Bacteria (FEW) /hpf Urine Mucus (FEW) /hpf Blood Type O POSITIVE Gel Antibody Screen Negative Crossmatch See Detail 04/14/20 04/14/20 04/14/20 Range/Units 10:47 10:47 12:20 WBC (3.98-10.04) K/mm3 RBC (3.98-5.22) M/mm3 Hgb (11.2-15.7) gm/dl Hct (34.1-44.9) % MCV (79.4-94.8) fl MCH (25.6-32.2) pg MCHC (32.2-35.5) g/dl RDW Std Deviation (36.4-46.3) fL Plt Count (182-369) K/mm3 MPV (9.4-12.3) fl Neut % (Auto) (34.0-71.1) % Lymph % (Auto) (19.3-51.7) % [place] % (Auto) (4.7-12.5) % Eos % (Auto) (0.7-5.8) Baso % (Auto) (0.1-1.2) % Neut # (Auto) (1.56-6.13) K/mm3 Lymph # (Auto) (1.18-3.74) K/mm3 [place] # (Auto) (0.24-0.36) K/mm3 Eos # (Auto) (0.04-0.36) K/mm3 Baso # (Auto) (0.01-0.08) K/mm3 Manual Slide Review Percent Retic 1.61 (0.50-1.70) % PT (9.7-12.0) SECONDS INR APTT (21.7-31.4) SECONDS Sodium (136-145) mEq/L Potassium (3.5-5.1) mEq/L Chloride (98-107) mEq/L Carbon Dioxide (21-32) mEq/L Anion Gap (5-15) BUN (7-18) mg/dL Creatinine (0.55-1.02) mg/dL Est Cr Clr Drug Dosing mL/min Estimated GFR (MDRD) (>60) mL/min BUN/Creatinine Ratio (14-18) Glucose (83-115) mg/dL Calcium (8.5-10.1) mg/dL Magnesium (1.8-2.4) mg/dl Iron (50-170) ug/dL TIBC (100-400) ug/dL % Saturation (20-55) % Transferrin (202-364) mg/dL Total Bilirubin (0.2-1.0) mg/dL AST (15-37) U/L ALT (14-59) U/L Alkaline Phosphatase (46-116) U/L Troponin I (0.00-0.056) ng/mL C-Reactive Protein (<1.0) mg/dL NT-Pro-B Natriuret Pep (0-450) pg/mL Total Protein (6.4-8.2) g/dl Albumin (3.4-5.0) g/dl Globulin gm/dL Albumin/Globulin Ratio (1-2) TSH 3rd Generation 2.302 (0.358-3.74) uIU/mL Urine Color Light yellow (Yellow) Urine Appearance Clear (Clear) Urine pH 6.0 (5.0-8.0) Ur Specific [place] 1.015 (1.005-1.030) Urine Protein Negative (Negative) Urine Glucose (UA) Negative (Negative) Urine Ketones Negative (Negative) Urine Occult Blood Negative (Negative) Urine Nitrite Negative (Negative) Urine Bilirubin Negative (Negative) Urine Urobilinogen 0.2 (0.2-1.0) Ur Leukocyte Esterase Negative (Negative) U Hyaline Cast (Auto) 30-40 H (0-5) /lpf Urine RBC 0-5 (0-5) /hpf Urine WBC 0-5 (0-5) /hpf Ur Squamous Epith Cells 5-10 H (0-5) /hpf Urine Bacteria Few (FEW) /hpf Urine Mucus Few (FEW) /hpf Blood Type Gel Antibody Screen Crossmatch Meds: Medications Generic Name Dose Route Start Last Admin Trade Name Freq PRN Reason Stop Dose Admin Sodium Chloride 1,000 mls @ 75 mls/hr 04/14/20 10:45 04/14/20 11:09 Normal Saline IV 75 mls/hr ASDIRECTED LUCI Administration - Radiology Interpretation Free Text/Narrative:: 79-year-old female presents to the ED at the request of her primary care physician at [facility]. She had lab work done at the clinic this morning and identified to have a low hemoglobin of 4.4. She was thus referred to the ED for further evaluation and blood transfusion. She has a history of GI bleeding. She has not appreciated any dark black tarry stools or aggressive bleeding lately suggesting a slow leak. Attempted colonoscopy by Dr. Sandi Connolly surgeon at [facility] apparently made with limited ability to proceed due to difficulty getting past the sigmoid colon. Unclear how long ago this was attempted but it sounds like more than 3 months ago. Plan she will be crossmatched for 4 units of packed RBCs. We will see if we run into any problems with antibodies. Repeat CBC, CMP, BNP magnesium and cardiac markers to be done. PTT and PT as well. - Re-Assessments/Exams Free Text/Narrative Re-Assessment/Exam: 04/14/20 11:27 Hematology is back revealing a normal white count at 9.44. Hemoglobin is 5.1 with hematocrit of 18.8. MCV is 72.9 suggesting iron deficiency. Platelet count is normal at 323,000. Reticulocyte count is 1.61. Chest x-ray done portably reveals heart to be moderately enlarged. Hiatal hernia is appreciated. Tortuous thoracic aorta is noted. Lungs are clear with no acute parenchymal changes. No acute osseous abnormalities appreciated. 04/14/20 12:28 PT is 19.4 with an INR of 1.83. Mildly supratherapeutic. PTT is 31.5. Sodium 137 with potassium of 4.4. Chloride 102 with a bicarb of 24. Anion gap is 15.4. BUN is 39 with a creatinine of 2.0 and a GFR of only 24 i.e. stage IV kidney disease. Glucose is 104 with a calcium of 10.1. Magnesium is 2.2. Liver function normal. Troponin I is less than 0.020. C-reactive protein 1.1. Total protein 6.6 with an albumin fraction of only 2.7. TSH is 2.302. 04/14/20 13:53 Blood is now available and first unit is being transfused. Due to her poor kidney function and history of congestive heart failure I believe she should be admitted to the hospital per observation status. Take on average of 3 hours to infuse a unit of packed RBCs. A coronavirus screen will now be done. I did discuss this with Dr. Monreal and he is willing to admit her to the med surgery floor to receive 4 units of packed cells and Lasix 40 mg after every second unit to prevent her from going into heart failure. She does have an appointment to see her holistic specialist Dr. Morrison in [place] tomorrow at 1400 hrs. central standard time. It appears that she is continues to have a slow loss of blood likely from the lower GI tract. Mild anemia could be attributed to renal insufficiency as well.Urinalysis reveals 30-40 hyaline casts per high- power field and 5-10 squamous epithelial cells but no signs of infection 04/14/20 14:50 Serum iron level is only 10 total iron binding capacity elevated at 408. Percent saturation is 2. Serum transferrin is 326. BNP which is now become available as the analyzer is fixed in the lab. Is 4173. Will be given Lasix 40 mg IV bolus at this time. Departure - Departure Time of Disposition: 14:03 Disposition: Refer to Observation Condition: Fair Clinical Impression: Chronic diastolic congestive heart failure, NYHA class 2, Chronic renal insuf ficiency, stage IV (severe), Supratherapeutic INR Anemia Qualifiers: Anemia type: iron deficiency Iron deficiency anemia type: chronic blood loss Qualified Code(s): D50.0 - Iron deficiency anemia secondary to blood loss (chronic) GI bleeding Qualifiers: GI bleed type/associated pathology: unspecified gastrointestinal hemorrhage type Qualified Code(s): K92.2 - Gastrointestinal hemorrhage, unspecified - Discharge Information *PRESCRIPTION DRUG MONITORING PROGRAM REVIEWED*: Not Applicable *COPY OF PRESCRIPTION DRUG MONITORING REPORT IN PATIENT CHRISTOPHE: Not Applicable Referrals: Jabari Robins MD [Primary Care Provider] - Forms: ED Department Discharge Sepsis Event Note (ED) - Evaluation Sepsis Screening Result: No Definite Risk - Focused Exam Vital Signs: Vital Signs Temp Temp Pulse Resp BP Pulse Ox 04/14/20 13:50 36.3 C 86 21 H 132/65 04/14/20 13:35 36.5 C 68 14 140/65 04/14/20 13:34 36.5 C 65 12 140/65 04/14/20 13:21 36.5 C 71 11 L 110/43 L 04/14/20 10:17 36.6 C 96 14 120/57 L 100 - My Orders Last 24 Hours: My Active Orders 04/14/20 10:26 EKG Documentation Completion [RC] STAT 04/14/20 10:45 Sodium Chloride 0.9% [Normal Saline] 1,000 ml IV ASDIRECTED 04/14/20 10:47 PACKED CELLS [RED BLOOD CELLS LP] [BBK] Stat TYPE AND SCREEN [BBK] Stat 04/14/20 12:26 Transfuse PRBC [Transfuse Red Blood Cells] [COMM] Routine 04/14/20 13:51 CORONAVIRUS COVID-19 AMINA [MOLEC] Stat 04/14/20 13:56 Admission Status [Patient Status] [ADT] Routine - Assessment/Plan Last 24 Hours: My Active Orders 04/14/20 10:26 EKG Documentation Completion [RC] STAT 04/14/20 10:45 Sodium Chloride 0.9% [Normal Saline] 1,000 ml IV ASDIRECTED 04/14/20 10:47 PACKED CELLS [RED BLOOD CELLS LP] [BBK] Stat TYPE AND SCREEN [BBK] Stat 04/14/20 12:26 Transfuse PRBC [Transfuse Red Blood Cells] [COMM] Routine 04/14/20 13:51 CORONAVIRUS COVID-19 AMINA [MOLEC] Stat 04/14/20 13:56 Admission Status [Patient Status] [ADT] Routine
[2020-04-14] MEDS ORDERED: Sodium Chloride 0.9% 1,000 ML IV SCH (10:45)
--- NOTE | 2020-04-14 11:01 | CR ---
Chest: Portable view of the chest was obtained. Comparison: Prior chest x-ray of 02/16/20. Heart is slightly enlarged. Hiatal hernia is noted. Tortuous thoracic aorta is seen. Lungs are clear with no acute parenchymal change. No acute osseous abnormality is appreciated. Impression: 1. Findings as noted above. 2. Nothing acute is appreciated. Diagnostic code #2
[2020-04-14] MEDS ORDERED: Furosemide 40 MG/4 ML VIAL IVPUSH ONE (14:50)
[2020-04-14] MEDS ORDERED: Furosemide 20 MG/2 ML VIAL IVPUSH ONE (19:59)
[2020-04-14] MEDS ORDERED: Acetaminophen 325 MG Tab PO PRN (20:06)
[2020-04-14] MEDS ORDERED: Ondansetron 4 MG/2 ML SDV IV PRN (20:06)
[2020-04-14] MEDS ORDERED: Albuterol/Ipratropium 3.0-0.5 MG/3 ML Neb Soln INH PRN (20:08)
--- NOTE | 2020-04-14 20:18 | PCM.HP.2 ---
H&P History of Present Illness - General Date of Service: 04/14/20 Admit Problem/Dx: Admission Diagnosis/Problem Admission Diagnosis/Problem Anemia - History of Present Illness Initial Comments - Free Text/Narative: 79-year-old female with history of GI bleeding in the past presents to the emergency department from [facility] after having a low hemoglobin found there. When she arrived at the emergency department she did complain of being lightheaded, dizzy, worse with standing and feeling like she was going to pass out. Patient complained of shortness of breath with minimal exertion. Patient states that she did have some blood in her stools approximately a month ago but none since then. Patient was admitted in February with the same symptoms and a hemoglobin of 4.6. Patient was admitted with lower GI bleed in November of last year and had only a partial colonoscopy because the scope was not able to be advanced. Patient was on warfarin and continues on warfarin. Today it is subtherapeutic at 1.8, but previous was 2.2. Patient will be admitted for transfusions, but she needs to be discharged early in the morning because she has an appointment with cardiology in [place] tomorrow afternoon. 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 - Related Data Allergies/Adverse Reactions: Allergies Allergy/AdvReac Type Severity Reaction Status Date / Time Penicillins Allergy Intermediate Swelling Verified 04/14/20 18:24 latex Allergy Rash Verified 04/14/20 18:24 pineapple Allergy Rash Verified 04/14/20 18:24 Home Medications: Home Meds Albuterol/Ipratropium [DuoNeb 3.0-0.5 MG/3 ML] 3 ml INH BID PRN 10/16/18 [History] Aspirin 81 mg PO DAILY 10/16/18 [History] Dicyclomine [Bentyl] 20 mg PO QID 10/16/18 [History] Furosemide 40 mg PO DAILY 10/16/18 [History] Nitroglycerin 0.4 mg PO Q5M PRN MDD 3 doses 10/16/18 [History] Pantoprazole [ProTONIX] 40 mg PO DAILY 10/16/18 [History] Potassium Chloride 20 meq PO DAILY 10/16/18 [History] Sertraline [Zoloft] 50 mg PO BEDTIME 10/16/18 [History] allopurinoL [Zyloprim] 300 mg PO BEDTIME 10/16/18 [History] Albuterol [Ventolin HFA] 2 puff INH BID PRN 11/20/19 [History] Docusate Sodium [Colace] 100 mg PO BID 11/20/19 [History] Mometasone Furoate [Asmanex Hfa] 1 puff INH BID 11/20/19 [History] Rosuvastatin Calcium [Crestor] 40 mg PO BEDTIME 11/20/19 [History] lisinopriL [Lisinopril] 20 mg PO DAILY 11/20/19 [History] Warfarin [Coumadin] 2.5 mg PO TUFR 02/22/20 [History] Warfarin [Coumadin] 5 mg PO SUMOWETHSA 02/22/20 [History] Fluticasone Propionate [Flovent HFA 220 MCG] 1 puff PO BID 04/14/20 [History] Past Medical History HEENT History: Reports: Cataract, Impaired Vision, Other (See Below) Other HEENT History: wears eyeglasses Cardiovascular History: Reports: Angina, Arrhythmia, Blood Clots/VTE/DVT, CAD, Heart Failure, High Cholesterol, Hypertension, Stents Other Cardiovascular History: carotid artery disease, ventricular bigeminy, bradycardia, hypotension Respiratory History: Reports: Asthma, COPD, Pneumonia, Recurrent, Other (See Below) Other Respiratory History: used to wear O2 at night, but doesn't anymore Gastrointestinal History: Reports: Chronic Constipation, GERD, GI Bleed, Hemorrhoids, Hiatal Hernia, Irritable Bowel Syndrome Genitourinary History: Reports: Chronic Renal Insuffiency Other Genitourinary History: renal disease, CKD III [employer] History: Reports: Other OB/BYN History: hysterectomy Musculoskeletal History: Reports: Arthritis, Back Pain, Chronic, Gout, Osteoarthritis, Osteoporosis Other Musculoskeletal History: Left sided sciatica, plantar fascia syndrome Neurological History: Reports: CVA, Neuropathy, Diabetic Other Neuro History: dizziness Psychiatric History: Reports: Anxiety, Depression Endocrine/Metabolic History: Reports: Diabetes, Type II, Obesity/BMI 30+ Hematologic History: Reports: Anemia, Anticoagulation Therapy, Blood Transfusion(s), Iron Deficiency Other Hematologic History: hypercalcemia, hyperkalemia Immunologic History: Reports: None Oncologic (Cancer) History: Reports: None Dermatologic History: Reports: Eczema Other Dermatologic History: eczema - Infectious Disease History Infectious Disease History: Reports: Influenza, RSV - Past Surgical History Head Surgeries/Procedures: Reports: None HEENT Surgical History: Reports: Cataract Surgery Cardiovascular Surgical History: Reports: Coronary Artery Stent, Percutaneous Transluminal Angioplasty Other Cardiovascular Surgeries/Procedures: Doctors have been keeping an eye on her left and right carotid Respiratory Surgical History: Reports: None GI Surgical History: Reports: Colonoscopy, Hernia Repair/Other, Other (See Below) Other GI Surgeries/Procedures: hemorhoidectomy Female Surgical History: Reports: Hysterectomy Endocrine Surgical History: Reports: None Neurological Surgical History: Reports: None Musculoskeletal Surgical History: Reports: Carpal Tunnel Oncologic Surgical History: Reports: None Social & Family History - Family History Family Medical History: No Pertinent Family History HEENT: Reports: Hearing Impairment Cardiac: Reports: High Cholesterol, Hypertension Respiratory: Reports: Asthma : Reports: Renal Disease/Insufficiency Musculoskeletal: Reports: Arthritis, Back pain, Chronic, Gout Neurological: Reports: Seizure Psychiatric: Reports: Schizophrenia Endocrine/Metabolic: Reports: Diabetes, Type I, Diabetes, type II, Obesity/MBI 30+ Dermatologic: Reports: Eczema Oncologic: Reports: Bone, Lung - Tobacco Use Tobacco Use Status *Q: Former Tobacco User Years of Tobacco use: 48 Packs/Tins Daily: 1 Used Tobacco, but Quit: Yes Month/Year Tobacco Last Used: 1999 Second Hand Smoke Exposure: No - Caffeine Use Caffeine Use: Reports: Coffee Other Caffeine Use: cup of coffee every morning Caffeine Use Comment: Drinks about 1 cup of coffee and 1-2 cups of iced tea a day. - Recreational Drug Use Recreational Drug Use: No - Living Situation & Occupation Living situation: Reports: , Alone Occupation: Retired H&P Review of Systems - Review of Systems: Review Of Systems: Comprehensive ROS is negative, except as noted in HPI. Exam - Exam Exam: See Below - Vital Signs Vital Signs: Last Vital Signs Temp 98.1 F 04/14/20 18:20 Pulse 67 04/14/20 18:20 Resp 18 04/14/20 19:03 BP 157/99 H 04/14/20 18:20 Pulse Ox 100 04/14/20 18:20 Weight: 163 lb 6.4 oz - Exam Quality Assessment: No: Supplemental Oxygen General: Alert, Oriented, 4 HEENT: Conjunctiva Clear (But pale), Mucosa Moist & [place], Normal Nasal Septum Neck: Supple, Trachea Midline, 2 Lungs: Clear to Auscultation, Normal Respiratory Effort Cardiovascular: Regular Rate, Regular Rhythm GI/Abdominal Exam: Normal Bowel Sounds, Soft, Non-Tender, No Organomegaly, No Distention, No Abnormal Bruit Extremities: Normal Inspection, Normal Range of Motion, Non-Tender, No Pedal Edema, Normal Capillary Refill Skin: Warm, Dry, Intact Neuro Extensive - Mental Status: Alert, Oriented x3, Normal Mood/Affect, Normal Cognition, Memory Intact Psychiatric: Alert, Normal Affect, Normal Mood - Patient Data Lab Results Last 24 hrs: Laboratory Results - last 24 hr 04/14/20 04/14/20 04/14/20 Range/Units 10:44 10:47 10:47 WBC 9.44 (3.98-10.04) K/mm3 RBC 2.58 L (3.98-5.22) M/mm3 Hgb 5.1 L* D (11.2-15.7) gm/dl Hct 18.8 L (34.1-44.9) % MCV 72.9 L D (79.4-94.8) fl MCH 19.8 L (25.6-32.2) pg MCHC 27.1 L (32.2-35.5) g/dl RDW Std Deviation 52.9 H (36.4-46.3) fL Plt Count 323 D (182-369) K/mm3 MPV 10.0 (9.4-12.3) fl Neut % (Auto) 57.4 (34.0-71.1) % Lymph % (Auto) 26.3 (19.3-51.7) % [place] % (Auto) 10.4 (4.7-12.5) % Eos % (Auto) 5.1 (0.7-5.8) Baso % (Auto) 0.6 (0.1-1.2) % Neut # (Auto) 5.42 (1.56-6.13) K/mm3 Lymph # (Auto) 2.48 (1.18-3.74) K/mm3 [place] # (Auto) 0.98 H (0.24-0.36) K/mm3 Eos # (Auto) 0.48 H (0.04-0.36) K/mm3 Baso # (Auto) 0.06 (0.01-0.08) K/mm3 Manual Slide Review Abnormal smear Percent Retic (0.50-1.70) % PT 19.4 H (9.7-12.0) SECONDS INR 1.83 APTT 31.5 H (21.7-31.4) SECONDS Sodium (136-145) mEq/L Potassium (3.5-5.1) mEq/L Chloride (98-107) mEq/L Carbon Dioxide (21-32) mEq/L Anion Gap (5-15) BUN (7-18) mg/dL Creatinine (0.55-1.02) mg/dL Est Cr Clr Drug Dosing mL/min Estimated GFR (MDRD) (>60) mL/min BUN/Creatinine Ratio (14-18) Glucose (83-115) mg/dL Calcium (8.5-10.1) mg/dL Magnesium (1.8-2.4) mg/dl Iron 10 L (50-170) ug/dL TIBC 408 H (100-400) ug/dL % Saturation 2 L (20-55) % Transferrin 326 (202-364) mg/dL Total Bilirubin (0.2-1.0) mg/dL AST (15-37) U/L ALT (14-59) U/L Alkaline Phosphatase (46-116) U/L Troponin I (0.00-0.056) ng/mL C-Reactive Protein (<1.0) mg/dL NT-Pro-B Natriuret Pep (0-450) pg/mL Total Protein (6.4-8.2) g/dl Albumin (3.4-5.0) g/dl Globulin gm/dL Albumin/Globulin Ratio (1-2) TSH 3rd Generation (0.358-3.74) uIU/mL Urine Color (Yellow) Urine Appearance (Clear) Urine pH (5.0-8.0) Ur Specific [place] (1.005-1.030) Urine Protein (Negative) Urine Glucose (UA) (Negative) Urine Ketones (Negative) Urine Occult Blood (Negative) Urine Nitrite (Negative) Urine Bilirubin (Negative) Urine Urobilinogen (0.2-1.0) Ur Leukocyte Esterase (Negative) U Hyaline Cast (Auto) (0-5) /lpf Urine RBC (0-5) /hpf Urine WBC (0-5) /hpf Ur Squamous Epith Cells (0-5) /hpf Urine Bacteria (FEW) /hpf Urine Mucus (FEW) /hpf SARS-CoV-2 RNA (AMINA) (NEGATIVE) Blood Type Gel Antibody Screen Crossmatch 04/14/20 04/14/20 04/14/20 Range/Units 10:47 10:47 10:47 WBC (3.98-10.04) K/mm3 RBC (3.98-5.22) M/mm3 Hgb (11.2-15.7) gm/dl Hct (34.1-44.9) % MCV (79.4-94.8) fl MCH (25.6-32.2) pg MCHC (32.2-35.5) g/dl RDW Std Deviation (36.4-46.3) fL Plt Count (182-369) K/mm3 MPV (9.4-12.3) fl Neut % (Auto) (34.0-71.1) % Lymph % (Auto) (19.3-51.7) % [place] % (Auto) (4.7-12.5) % Eos % (Auto) (0.7-5.8) Baso % (Auto) (0.1-1.2) % Neut # (Auto) (1.56-6.13) K/mm3 Lymph # (Auto) (1.18-3.74) K/mm3 [place] # (Auto) (0.24-0.36) K/mm3 Eos # (Auto) (0.04-0.36) K/mm3 Baso # (Auto) (0.01-0.08) K/mm3 Manual Slide Review Percent Retic (0.50-1.70) % PT (9.7-12.0) SECONDS INR APTT (21.7-31.4) SECONDS Sodium 137 (136-145) mEq/L Potassium 4.4 (3.5-5.1) mEq/L Chloride 102 (98-107) mEq/L Carbon Dioxide 24 (21-32) mEq/L Anion Gap 15.4 H (5-15) BUN 39 H (7-18) mg/dL Creatinine 2.0 H (0.55-1.02) mg/dL Est Cr Clr Drug Dosing 20.86 mL/min Estimated GFR (MDRD) 24 (>60) mL/min BUN/Creatinine Ratio 19.5 H (14-18) Glucose 104 (83-115) mg/dL Calcium 10.1 (8.5-10.1) mg/dL Magnesium 2.2 (1.8-2.4) mg/dl Iron (50-170) ug/dL TIBC (100-400) ug/dL % Saturation (20-55) % Transferrin (202-364) mg/dL Total Bilirubin 0.3 (0.2-1.0) mg/dL AST 23 (15-37) U/L ALT 24 (14-59) U/L Alkaline Phosphatase 69 (46-116) U/L Troponin I 0.020 (0.00-0.056) ng/mL C-Reactive Protein 1.1 H* (<1.0) mg/dL NT-Pro-B Natriuret Pep 4173 H (0-450) pg/mL Total Protein 6.6 (6.4-8.2) g/dl Albumin 2.7 L (3.4-5.0) g/dl Globulin 3.9 gm/dL Albumin/Globulin Ratio 0.7 L (1-2) TSH 3rd Generation (0.358-3.74) uIU/mL Urine Color (Yellow) Urine Appearance (Clear) Urine pH (5.0-8.0) Ur Specific [place] (1.005-1.030) Urine Protein (Negative) Urine Glucose (UA) (Negative) Urine Ketones (Negative) Urine Occult Blood (Negative) Urine Nitrite (Negative) Urine Bilirubin (Negative) Urine Urobilinogen (0.2-1.0) Ur Leukocyte Esterase (Negative) U Hyaline Cast (Auto) (0-5) /lpf Urine RBC (0-5) /hpf Urine WBC (0-5) /hpf Ur Squamous Epith Cells (0-5) /hpf Urine Bacteria (FEW) /hpf Urine Mucus (FEW) /hpf SARS-CoV-2 RNA (AMINA) (NEGATIVE) Blood Type O POSITIVE Gel Antibody Screen Negative Crossmatch See Detail 04/14/20 04/14/20 04/14/20 Range/Units 10:47 10:47 12:20 WBC (3.98-10.04) K/mm3 RBC (3.98-5.22) M/mm3 Hgb (11.2-15.7) gm/dl Hct (34.1-44.9) % MCV (79.4-94.8) fl MCH (25.6-32.2) pg MCHC (32.2-35.5) g/dl RDW Std Deviation (36.4-46.3) fL Plt Count (182-369) K/mm3 MPV (9.4-12.3) fl Neut % (Auto) (34.0-71.1) % Lymph % (Auto) (19.3-51.7) % [place] % (Auto) (4.7-12.5) % Eos % (Auto) (0.7-5.8) Baso % (Auto) (0.1-1.2) % Neut # (Auto) (1.56-6.13) K/mm3 Lymph # (Auto) (1.18-3.74) K/mm3 [place] # (Auto) (0.24-0.36) K/mm3 Eos # (Auto) (0.04-0.36) K/mm3 Baso # (Auto) (0.01-0.08) K/mm3 Manual Slide Review Percent Retic 1.61 (0.50-1.70) % PT (9.7-12.0) SECONDS INR APTT (21.7-31.4) SECONDS Sodium (136-145) mEq/L Potassium (3.5-5.1) mEq/L Chloride (98-107) mEq/L Carbon Dioxide (21-32) mEq/L Anion Gap (5-15) BUN (7-18) mg/dL Creatinine (0.55-1.02) mg/dL Est Cr Clr Drug Dosing mL/min Estimated GFR (MDRD) (>60) mL/min BUN/Creatinine Ratio (14-18) Glucose (83-115) mg/dL Calcium (8.5-10.1) mg/dL Magnesium (1.8-2.4) mg/dl Iron (50-170) ug/dL TIBC (100-400) ug/dL % Saturation (20-55) % Transferrin (202-364) mg/dL Total Bilirubin (0.2-1.0) mg/dL AST (15-37) U/L ALT (14-59) U/L Alkaline Phosphatase (46-116) U/L Troponin I (0.00-0.056) ng/mL C-Reactive Protein (<1.0) mg/dL NT-Pro-B Natriuret Pep (0-450) pg/mL Total Protein (6.4-8.2) g/dl Albumin (3.4-5.0) g/dl Globulin gm/dL Albumin/Globulin Ratio (1-2) TSH 3rd Generation 2.302 (0.358-3.74) uIU/mL Urine Color Light yellow (Yellow) Urine Appearance Clear (Clear) Urine pH 6.0 (5.0-8.0) Ur Specific [place] 1.015 (1.005-1.030) Urine Protein Negative (Negative) Urine Glucose (UA) Negative (Negative) Urine Ketones Negative (Negative) Urine Occult Blood Negative (Negative) Urine Nitrite Negative (Negative) Urine Bilirubin Negative (Negative) Urine Urobilinogen 0.2 (0.2-1.0) Ur Leukocyte Esterase Negative (Negative) U Hyaline Cast (Auto) 30-40 H (0-5) /lpf Urine RBC 0-5 (0-5) /hpf Urine WBC 0-5 (0-5) /hpf Ur Squamous Epith Cells 5-10 H (0-5) /hpf Urine Bacteria Few (FEW) /hpf Urine Mucus Few (FEW) /hpf SARS-CoV-2 RNA (AMINA) (NEGATIVE) Blood Type Gel Antibody Screen Crossmatch 04/14/20 Range/Units 13:51 WBC (3.98-10.04) K/mm3 RBC (3.98-5.22) M/mm3 Hgb (11.2-15.7) gm/dl Hct (34.1-44.9) % MCV (79.4-94.8) fl MCH (25.6-32.2) pg MCHC (32.2-35.5) g/dl RDW Std Deviation (36.4-46.3) fL Plt Count (182-369) K/mm3 MPV (9.4-12.3) fl Neut % (Auto) (34.0-71.1) % Lymph % (Auto) (19.3-51.7) % [place] % (Auto) (4.7-12.5) % Eos % (Auto) (0.7-5.8) Baso % (Auto) (0.1-1.2) % Neut # (Auto) (1.56-6.13) K/mm3 Lymph # (Auto) (1.18-3.74) K/mm3 [place] # (Auto) (0.24-0.36) K/mm3 Eos # (Auto) (0.04-0.36) K/mm3 Baso # (Auto) (0.01-0.08) K/mm3 Manual Slide Review Percent Retic (0.50-1.70) % PT (9.7-12.0) SECONDS INR APTT (21.7-31.4) SECONDS Sodium (136-145) mEq/L Potassium (3.5-5.1) mEq/L Chloride (98-107) mEq/L Carbon Dioxide (21-32) mEq/L Anion Gap (5-15) BUN (7-18) mg/dL Creatinine (0.55-1.02) mg/dL Est Cr Clr Drug Dosing mL/min Estimated GFR (MDRD) (>60) mL/min BUN/Creatinine Ratio (14-18) Glucose (83-115) mg/dL Calcium (8.5-10.1) mg/dL Magnesium (1.8-2.4) mg/dl Iron (50-170) ug/dL TIBC (100-400) ug/dL % Saturation (20-55) % Transferrin (202-364) mg/dL Total Bilirubin (0.2-1.0) mg/dL AST (15-37) U/L ALT (14-59) U/L Alkaline Phosphatase (46-116) U/L Troponin I (0.00-0.056) ng/mL C-Reactive Protein (<1.0) mg/dL NT-Pro-B Natriuret Pep (0-450) pg/mL Total Protein (6.4-8.2) g/dl Albumin (3.4-5.0) g/dl Globulin gm/dL Albumin/Globulin Ratio (1-2) TSH 3rd Generation (0.358-3.74) uIU/mL Urine Color (Yellow) Urine Appearance (Clear) Urine pH (5.0-8.0) Ur Specific [place] (1.005-1.030) Urine Protein (Negative) Urine Glucose (UA) (Negative) Urine Ketones (Negative) Urine Occult Blood (Negative) Urine Nitrite (Negative) Urine Bilirubin (Negative) Urine Urobilinogen (0.2-1.0) Ur Leukocyte Esterase (Negative) U Hyaline Cast (Auto) (0-5) /lpf Urine RBC (0-5) /hpf Urine WBC (0-5) /hpf Ur Squamous Epith Cells (0-5) /hpf Urine Bacteria (FEW) /hpf Urine Mucus (FEW) /hpf SARS-CoV-2 RNA (AMINA) Negative (NEGATIVE) Blood Type Gel Antibody Screen Crossmatch Result Diagrams: 04/14/20 10:47 04/14/20 10:47 Sepsis Event Note - Evaluation Sepsis Screening Result: No Definite Risk - Focused Exam Vital Signs: Vital Signs Temp Temp Pulse Pulse Resp BP BP 04/14/20 19:03 18 04/14/20 18:20 98.1 F 67 20 157/99 H 04/14/20 17:18 208.2 F H 71 22 H 107/50 L 04/14/20 16:41 97.5 F 70 12 103/46 L 04/14/20 13:50 97.4 F 86 21 H 132/65 04/14/20 13:35 97.7 F 68 14 140/65 04/14/20 13:34 97.7 F 65 12 140/65 04/14/20 13:21 97.7 F 71 11 L 110/43 L 04/14/20 10:17 97.8 F 96 14 120/57 L Pulse Ox 04/14/20 19:03 04/14/20 18:20 100 04/14/20 17:18 04/14/20 16:41 04/14/20 13:50 04/14/20 13:35 04/14/20 13:34 04/14/20 13:21 04/14/20 10:17 100 - Problem List (1) Anemia SNOMED Code(s): 895971311 ICD Code: D64.9 - ANEMIA, UNSPECIFIED Status: Acute Current Visit: Yes Qualifiers: Anemia type: iron deficiency Iron deficiency anemia type: chronic blood loss Qualified Code(s): D50.0 - Iron deficiency anemia secondary to blood loss (chronic) (2) Chronic diastolic congestive heart failure, NYHA class 2 SNOMED Code(s): 750885014, 659510257, 201517585 ICD Code: I50.32 - CHRONIC DIASTOLIC (CONGESTIVE) HEART FAILURE Status: Acu te Current Visit: Yes (3) Chronic renal insufficiency, stage IV (severe) SNOMED Code(s): 529968541 ICD Code: N18.4 - CHRONIC KIDNEY DISEASE, STAGE 4 (SEVERE) Status: Acute Current Visit: Yes Problem List Initiated/Reviewed/Updated: Yes Orders Last 24hrs: Active Orders 24 hr Category Date Time Status Admission Status [Patient Status] [ADT] Routine ADT 04/14/20 13:56 Active Antiembolic Devices [RC] PER UNIT ROUTINE Care 04/14/20 20:08 Ordered EKG Documentation Completion [RC] STAT Care 04/14/20 10:26 Active Oxygen Therapy [RC] PRN Care 04/14/20 20:01 Ordered Up ad Samantha [RC] ASDIRECTED Care 04/14/20 20:06 Ordered VTE/DVT Education [RC] PER UNIT ROUTINE Care 04/14/20 20:01 Ordered Vital Signs [RC] Q4H Care 04/14/20 20:01 Ordered Regular Diet [DIET] Diet 04/15/20 Breakfast Ordered BASIC METABOLIC PANEL,BMP [CHEM] AM Lab 04/15/20 05:11 Ordered CBC WITH AUTO DIFF [HEME] AM Lab 04/15/20 05:11 Ordered PACKED CELLS [RED BLOOD CELLS LP] [BBK] Stat Lab 04/14/20 10:47 Results TYPE AND SCREEN [BBK] Stat Lab 04/14/20 10:47 Results Acetaminophen [TylenoL] Med 04/14/20 20:06 Ordered 650 mg PO Q4H PRN Albuterol Med 04/14/20 20:08 Ordered 2 puff INH BID PRN Albuterol/Ipratropium [DuoNeb 3.0-0.5 MG/3 ML] Med 04/14/20 20:08 Ordered 3 ml INH BID PRN Dicyclomine Med 04/14/20 21:00 Ordered 20 mg PO QID Docusate Sodium [Colace] Med 04/14/20 21:00 Ordered 100 mg PO BID Fluticasone Propionate [Flovent HFA 220 MCG] Med 04/14/20 21:00 Ordered 1 puff PO BID Furosemide [Furosemide] Med 04/15/20 09:00 Ordered 40 mg PO DAILY Mometasone Furoate [Asmanex Hfa] Med 04/14/20 21:00 Ordered 1 puff INH BID Nitroglycerin [Nitroglycerin] Med 04/14/20 20:08 Ordered 0.4 mg PO Q5M PRN Ondansetron [Zofran] Med 04/14/20 20:06 Ordered 4 mg IV Q4H PRN Pantoprazole [ProTONIX] Med 04/15/20 09:00 Ordered 40 mg PO DAILY Potassium Chloride [Potassium Chloride] Med 04/15/20 09:00 Ordered 20 meq PO DAILY Rosuvastatin Calcium [Crestor] Med 04/14/20 21:00 Ordered 40 mg PO BEDTIME Sertraline [Zoloft] Med 04/14/20 21:00 Ordered 50 mg PO BEDTIME Sodium Chloride 0.9% [Normal Saline] 1,000 ml Med 04/14/20 10:45 Active IV ASDIRECTED Warfarin [Coumadin] Med 04/15/20 20:08 Ordered 2.5 mg PO TUFR Warfarin [Coumadin] Med 04/14/20 20:15 Ordered 5 mg PO SUMOWETHSA allopurinoL [Zyloprim] Med 04/14/20 21:00 Ordered 300 mg PO BEDTIME lisinopriL [Lisinopril] Med 04/15/20 09:00 Ordered 20 mg PO DAILY Sequential Compression Device [OM.PC] Per Unit Routine Oth 04/14/20 20:07 Ordered Transfuse PRBC [Transfuse Red Blood Cells] [COMM] Oth 04/14/20 12:26 Ordered Routine Resuscitation Status Routine Resus Stat 04/14/20 20:00 Ordered Medication Orders Acetaminophen (Tylenol) 650 mg PO Q4H PRN PRN Reason: Pain (Mild 1-3)/fever Sodium Chloride (Normal Saline) 1,000 mls @ 75 mls/hr IV ASDIRECTED LUCI Last Admin: 04/14/20 11:09 Dose: 75 mls/hr Documented by: HUAN Non-Formulary Medication (Albuterol) 2 puff INH BID PRN PRN Reason: Shortness of Breath Non-Formulary Medication (Albuterol/Ipratropium [Duoneb 3.0-0.5 Mg/3 Ml]) 3 ml INH BID PRN PRN Reason: Shortness of Breath Non-Formulary Medication (Allopurinol [Zyloprim]) 300 mg PO BEDTIME LUCI Non-Formulary Medication (Dicyclomine) 20 mg PO QID LUCI Non-Formulary Medication (Docusate Sodium [Colace]) 100 mg PO BID LUCI Non-Formulary Medication (Fluticasone Propionate [Flovent Hfa 220 Mcg]) 1 puff PO BID LUCI Non-Formulary Medication (Furosemide [Furosemide]) 40 mg PO DAILY LUCI Non-Formulary Medication (Lisinopril [Lisinopril]) 20 mg PO DAILY LUCI Non-Formulary Medication (Mometasone Furoate [Asmanex Hfa]) 1 puff INH BID LUCI Non-Formulary Medication (Nitroglycerin [Nitroglycerin]) 0.4 mg PO Q5M PRN PRN Reason: Chest Pain Non-Formulary Medication (Pantoprazole [Protonix]) 40 mg PO DAILY LUCI Non-Formulary Medication (Potassium Chloride [Potassium Chloride]) 20 meq PO DAILY LUCI Non-Formulary Medication (Rosuvastatin Calcium [Crestor]) 40 mg PO BEDTIME LUCI Non-Formulary Medication (Sertraline [Zoloft]) 50 mg PO BEDTIME LUCI Non-Formulary Medication (Warfarin [Coumadin]) 2.5 mg PO TUFR LUCI Non-Formulary Medication (Warfarin [Coumadin]) 5 mg PO SUMOWETHSA LUCI Ondansetron HCl (Zofran) 4 mg IV Q4H PRN PRN Reason: Nausea/Vomiting Assessment/Plan Comment:: Assessment 79-year-old female with recurrent severe anemia likely secondary to GI bleed. Patient is treated with warfarin secondary to previous DVT. Last admission February with similar hemoglobin. * Admitted with GI bleed in November 2019 and February 2019. * In November only able to do partial colonoscopy. * Continues on warfarin. INR 1.8 * Stage IV chronic renal disease but stable. * Received 2 units packed red blood cells in the emergency department and will get one more on the floor. * Received 40 mg of Lasix IV x1 in the emergency department Past medical history is significant for heart failure with preserved ejection fraction, hypertension, hyperlipidemia, coronary artery disease, stage IV chronic renal insufficiency, COPD Plan * Refer for observation * Finish 1 more unit of packed red blood cells for a total of 3 units * 20 mg of Lasix between unit 2 and 3 * CBC and BMP in the morning * Discharge in the morning for her to see cardiology * CODE STATUS: CPR * VTE prophylaxis with warfarin and SCDs. * Patient will need full GI work-up as an outpatient. - Mortality Measure Prognosis:: Good
[2020-04-14] MEDS ORDERED: MOMETASONE FUROATE INH SCH (21:00)
[2020-04-14] MEDS ORDERED: FLUTICASONE PROPIONATE PO SCH (21:00)
[2020-04-14] MEDS ORDERED: ROSUVASTATIN CALCIUM 40 MG PO SCH (23:15)
[2020-04-14] MEDS ORDERED: WARFARIN 5 MG PO SCH (23:15)
[2020-04-14] MEDS ORDERED: ALLOPURINOL 300 MG PO SCH (23:30)
[2020-04-14] MEDS ORDERED: SERTRALINE 100 MG PO SCH (23:30)
[2020-04-14] MEDS: DICYCLOMINE 20 MG PO SCH (23:45)
[2020-04-15] MEDS ORDERED: Nitroglycerin 0.4 MG Tab.SL SL PRN (08:13)
[2020-04-15] MEDS ORDERED: Albuterol 6.7 GM Inhaler INH PRN (08:18)
[2020-04-15 08:30] VITALS: BP 153/80; PULSE 60
--- NOTE | 2020-04-15 08:43 | PCM.DCSUM1 ---
Discharge Summary - Hospital Course HPI Initial Comments: 79-year-old female with history of GI bleeding in the past presents to the emergency department from [facility] after having a low hemoglobin found there. When she arrived at the emergency department she did complain of being lightheaded, dizzy, worse with standing and feeling like she was going to pass out. Patient complained of shortness of breath with minimal exertion. Patient states that she did have some blood in her stools approximately a month ago but none since then. Patient was admitted in February with the same symptoms and a hemoglobin of 4.6. Patient was admitted with lower GI bleed in November of last year and had only a partial colonoscopy because the scope was not able to be advanced. Patient was on warfarin and continues on warfarin. Today it is subtherapeutic at 1.8, but previous was 2.2. 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 Diagnosis: Stroke: No - Discharge Data Discharge Date: 04/15/20 (Admit date: 04/14/20) Discharge Disposition: Home, Self-Care 01 Condition: Good - Referral to Home Health Primary Care Physician: Jabari Robins MD - Discharge Diagnosis/Problem(s) (1) Anemia SNOMED Code(s): 821201390 ICD Code: D64.9 - ANEMIA, UNSPECIFIED Status: Acute Priority: High Qualifiers: Anemia type: iron deficiency Iron deficiency anemia type: chronic blood loss Qualified Code(s): D50.0 - Iron deficiency anemia secondary to blood loss (chronic) (2) Chronic diastolic congestive heart failure, NYHA class 2 SNOMED Code(s): 460157071, 723615167, [id number] ICD Code: I50.32 - CHRONIC DIASTOLIC (CONGESTIVE) HEART FAILURE Status: Chronic Priority: Medium (3) Chronic renal insufficiency, stage IV (severe) SNOMED Code(s): 053617694 ICD Code: N18.4 - CHRONIC KIDNEY DISEASE, STAGE 4 (SEVERE) Status: Chronic Priority: Low - Patient Summary/Data Labs Pending at D/C: None Recommended Follow-up Testing/Procedures: Follow-up with primary care provider within 7-10 days of discharge, sooner if needed. Follow-up with hematology/oncology and cardiology as scheduled. Hospital Course: This is a 79-year-old female presents to ED on 04/14/2020 after being sent over from her primary care provider's office at [facility] with a low hemoglobin. 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 She also has a history of DVT and is on warfarin for this. She has been treated in the past for GI bleeds in November 2019 in February 2020. Hemoglobin in February was noted to be 4.6. Her INR on this visit was noted to be subtherapeutic at 1.8. She has chronic stage IV renal disease but is stable. 2 units of packed red cells were given in the ED prior to admission. She was also given 40 mg of Lasix x1 dose in the ED. On the floor she received 1 more unit of packed red blood cells and 20 more milligrams of IV push Lasix. She was quite adamant about discharging this morning as she reportedly has a cardiology appointment in [place]. She was admitted to observation status with the plan to provide her blood and recheck her hemoglobin in the morning. She will need a full outpatient GI work-up in the future as well as a recheck of her INR. She was provided SCDs while here and her home warfarin dosing was continued. Iron panel was obtained and was low at 10, higher to her blood transfusion. She was instructed to follow-up with her primary care provider within 7 to 10 days of discharge, sooner if needed. She should also follow-up with GI as scheduled. She was discharged this morning to allow for her to attend her cardiology appointment. No new medications. No home medications were changed. She was instructed to contact her primary care provider or return the emergency room should symptoms return or worsen. - Patient Instructions Diet: Heart Healthy Diet Activity: As Tolerated Driving: Do Not Drive Showering/Bathing: May Shower Notify Provider of: Fever, Increased Pain, Nausea and/or Vomiting Other/Special Instructions: Follow-up with primary care provider within 7-10 days of discahrge, sooner if needed. Follow-up with cardiology and hematology/oncology as scheduled. Should symptoms return or worsen contact primary care provider or return to the Emergency Department. - Discharge Plan *PRESCRIPTION DRUG MONITORING PROGRAM REVIEWED*: Not Applicable *COPY OF PRESCRIPTION DRUG MONITORING REPORT IN PATIENT CHRISTOPHE: Not Applicable Home Medications: Home Meds Albuterol/Ipratropium [DuoNeb 3.0-0.5 MG/3 ML] 3 ml INH BID PRN 10/16/18 [History] Aspirin 81 mg PO DAILY 10/16/18 [History] Dicyclomine [Bentyl] 20 mg PO QID 10/16/18 [History] Furosemide 40 mg PO DAILY 10/16/18 [History] Nitroglycerin 0.4 mg PO Q5M PRN MDD 3 doses 10/16/18 [History] Pantoprazole [ProTONIX] 40 mg PO DAILY 10/16/18 [History] Potassium Chloride 20 meq PO DAILY 10/16/18 [History] Sertraline [Zoloft] 50 mg PO BEDTIME 10/16/18 [History] allopurinoL [Zyloprim] 300 mg PO DAILY 10/16/18 [History] Albuterol [Ventolin HFA] 2 puff INH BID PRN 11/20/19 [History] Docusate Sodium [Colace] 100 mg PO BID 11/20/19 [History] Rosuvastatin Calcium [Crestor] 40 mg PO DAILY 11/20/19 [History] lisinopriL [Lisinopril] 20 mg PO DAILY 11/20/19 [History] Warfarin [Coumadin] 2.5 mg PO ASDIRECTED 02/22/20 [History] Warfarin [Coumadin] 5 mg PO MOWEFR 02/22/20 [History] Cholecalciferol (Vitamin D3) [Vitamin D3] 25 mcg PO DAILY 04/14/20 [History] Fluticasone Propionate [Flovent HFA 220 MCG] 1 puff PO BID 04/14/20 [History] Oxygen Therapy Mode: Room Air Patient Handouts: Preventing Iron Deficiency Anemia, Adult Forms: ED Department Discharge Referrals: Shelia Plasencia NP [Ordering Only Provider] - 04/25/20 9:00 am (You are being referred to a gastrointestinal specialist doctor. Appointment is in [place] and is at 08:00 am [place] Standard Time, 09:00 [place] Standard Time. If you prefer to have your Gastroenterology appointment within the [facility] network you must obtain a referral to them from your primary provider.) Jabari Robins MD [Primary Care Provider] - - Discharge Summary/Plan Comment DC Time >30 min.: No - General Info Date of Service: 04/15/20 Admission Dx/Problem (Free Text: Admission Diagnosis/Problem Admission Diagnosis/Problem Anemia Functional Status: Reports: Pain Controlled, Tolerating Diet (minimal appetite ), Ambulating, Urinating. Denies: New Symptoms - Review of Systems General: Reports: Weakness (improved ). Denies: Fever, Fatigue, Malaise, Chills HEENT: Reports: No Symptoms. Denies: Headaches, Sinus Congestion Pulmonary: Reports: No Symptoms. Denies: Shortness of Breath, Pleuritic Chest Pain, Cough, Sputum, Wheezing Cardiovascular: Reports: Dyspnea on Exertion, Edema. Denies: Chest Pain, Palpitations Gastrointestinal: Reports: No Symptoms. Denies: Abdominal Pain, Constipation, Diarrhea, Nausea, Vomiting Genitourinary: Reports: No Symptoms. Denies: Pain Musculoskeletal: Reports: No Symptoms Skin: Reports: No Symptoms. Denies: Cyanosis Neurological: Reports: No Symptoms. Denies: Confusion Psychiatric: Reports: No Symptoms - Patient Data Vitals - Most Recent: Last Vital Signs Temp 97.9 F 04/15/20 08:14 Pulse 60 04/15/20 08:14 Resp 20 04/15/20 08:14 BP 153/80 H 04/15/20 08:14 Pulse Ox 91 L 04/15/20 08:14 Weight - Most Recent: 156 lb 12.8 oz I&O - Last 24 hours: Intake & Output 04/14/20 04/15/20 04/15/20 22:59 06:59 14:59 Intake Total 360 600 Output Total 1000 Balance 360 -400 Lab Results - Last 24 hrs: Laboratory Results - last 24 hr 04/14/20 04/14/20 04/14/20 Range/Units 10:44 10:47 10:47 WBC 9.44 (3.98-10.04) K/mm3 RBC 2.58 L (3.98-5.22) M/mm3 Hgb 5.1 L* D (11.2-15.7) gm/dl Hct 18.8 L (34.1-44.9) % MCV 72.9 L D (79.4-94.8) fl MCH 19.8 L (25.6-32.2) pg MCHC 27.1 L (32.2-35.5) g/dl RDW Std Deviation 52.9 H (36.4-46.3) fL Plt Count 323 D (182-369) K/mm3 MPV 10.0 (9.4-12.3) fl Neut % (Auto) 57.4 (34.0-71.1) % Lymph % (Auto) 26.3 (19.3-51.7) % Richardson % (Auto) 10.4 (4.7-12.5) % Eos % (Auto) 5.1 (0.7-5.8) Baso % (Auto) 0.6 (0.1-1.2) % Neut # (Auto) 5.42 (1.56-6.13) K/mm3 Lymph # (Auto) 2.48 (1.18-3.74) K/mm3 Richardson # (Auto) 0.98 H (0.24-0.36) K/mm3 Eos # (Auto) 0.48 H (0.04-0.36) K/mm3 Baso # (Auto) 0.06 (0.01-0.08) K/mm3 Manual Slide Review Abnormal smear Percent Retic (0.50-1.70) % PT 19.4 H (9.7-12.0) SECONDS INR 1.83 APTT 31.5 H (21.7-31.4) SECONDS Sodium (136-145) mEq/L Potassium (3.5-5.1) mEq/L Chloride (98-107) mEq/L Carbon Dioxide (21-32) mEq/L Anion Gap (5-15) BUN (7-18) mg/dL Creatinine (0.55-1.02) mg/dL Est Cr Clr Drug Dosing mL/min Estimated GFR (MDRD) (>60) mL/min BUN/Creatinine Ratio (14-18) Glucose (83-115) mg/dL Calcium (8.5-10.1) mg/dL Magnesium (1.8-2.4) mg/dl Iron 10 L (50-170) ug/dL TIBC 408 H (100-400) ug/dL % Saturation 2 L (20-55) % Transferrin 326 (202-364) mg/dL Total Bilirubin (0.2-1.0) mg/dL AST (15-37) U/L ALT (14-59) U/L Alkaline Phosphatase (46-116) U/L Troponin I (0.00-0.056) ng/mL C-Reactive Protein (<1.0) mg/dL NT-Pro-B Natriuret Pep (0-450) pg/mL Total Protein (6.4-8.2) g/dl Albumin (3.4-5.0) g/dl Globulin gm/dL Albumin/Globulin Ratio (1-2) TSH 3rd Generation (0.358-3.74) uIU/mL Urine Color (Yellow) Urine Appearance (Clear) Urine pH (5.0-8.0) Ur Specific Peterson (1.005-1.030) Urine Protein (Negative) Urine Glucose (UA) (Negative) Urine Ketones (Negative) Urine Occult Blood (Negative) Urine Nitrite (Negative) Urine Bilirubin (Negative) Urine Urobilinogen (0.2-1.0) Ur Leukocyte Esterase (Negative) U Hyaline Cast (Auto) (0-5) /lpf Urine RBC (0-5) /hpf Urine WBC (0-5) /hpf Ur Squamous Epith Cells (0-5) /hpf Urine Bacteria (FEW) /hpf Urine Mucus (FEW) /hpf SARS-CoV-2 RNA (AMINA) (NEGATIVE) MRSA (PCR) Blood Type Gel Antibody Screen Crossmatch 04/14/20 04/14/20 04/14/20 Range/Units 10:47 10:47 10:47 WBC (3.98-10.04) K/mm3 RBC (3.98-5.22) M/mm3 Hgb (11.2-15.7) gm/dl Hct (34.1-44.9) % MCV (79.4-94.8) fl MCH (25.6-32.2) pg MCHC (32.2-35.5) g/dl RDW Std Deviation (36.4-46.3) fL Plt Count (182-369) K/mm3 MPV (9.4-12.3) fl Neut % (Auto) (34.0-71.1) % Lymph % (Auto) (19.3-51.7) % Richardson % (Auto) (4.7-12.5) % Eos % (Auto) (0.7-5.8) Baso % (Auto) (0.1-1.2) % Neut # (Auto) (1.56-6.13) K/mm3 Lymph # (Auto) (1.18-3.74) K/mm3 Richardson # (Auto) (0.24-0.36) K/mm3 Eos # (Auto) (0.04-0.36) K/mm3 Baso # (Auto) (0.01-0.08) K/mm3 Manual Slide Review Percent Retic (0.50-1.70) % PT (9.7-12.0) SECONDS INR APTT (21.7-31.4) SECONDS Sodium 137 (136-145) mEq/L Potassium 4.4 (3.5-5.1) mEq/L Chloride 102 (98-107) mEq/L Carbon Dioxide 24 (21-32) mEq/L Anion Gap 15.4 H (5-15) BUN 39 H (7-18) mg/dL Creatinine 2.0 H (0.55-1.02) mg/dL Est Cr Clr Drug Dosing 20.86 mL/min Estimated GFR (MDRD) 24 (>60) mL/min BUN/Creatinine Ratio 19.5 H (14-18) Glucose 104 (83-115) mg/dL Calcium 10.1 (8.5-10.1) mg/dL Magnesium 2.2 (1.8-2.4) mg/dl Iron (50-170) ug/dL TIBC (100-400) ug/dL % Saturation (20-55) % Transferrin (202-364) mg/dL Total Bilirubin 0.3 (0.2-1.0) mg/dL AST 23 (15-37) U/L ALT 24 (14-59) U/L Alkaline Phosphatase 69 (46-116) U/L Troponin I 0.020 (0.00-0.056) ng/mL C-Reactive Protein 1.1 H* (<1.0) mg/dL NT-Pro-B Natriuret Pep 4173 H (0-450) pg/mL Total Protein 6.6 (6.4-8.2) g/dl Albumin 2.7 L (3.4-5.0) g/dl Globulin 3.9 gm/dL Albumin/Globulin Ratio 0.7 L (1-2) TSH 3rd Generation (0.358-3.74) uIU/mL Urine Color (Yellow) Urine Appearance (Clear) Urine pH (5.0-8.0) Ur Specific Peterson (1.005-1.030) Urine Protein (Negative) Urine Glucose (UA) (Negative) Urine Ketones (Negative) Urine Occult Blood (Negative) Urine Nitrite (Negative) Urine Bilirubin (Negative) Urine Urobilinogen (0.2-1.0) Ur Leukocyte Esterase (Negative) U Hyaline Cast (Auto) (0-5) /lpf Urine RBC (0-5) /hpf Urine WBC (0-5) /hpf Ur Squamous Epith Cells (0-5) /hpf Urine Bacteria (FEW) /hpf Urine Mucus (FEW) /hpf SARS-CoV-2 RNA (AMINA) (NEGATIVE) MRSA (PCR) Blood Type O POSITIVE Gel Antibody Screen Negative Crossmatch See Detail 04/14/20 04/14/20 04/14/20 Range/Units 10:47 10:47 12:20 WBC (3.98-10.04) K/mm3 RBC (3.98-5.22) M/mm3 Hgb (11.2-15.7) gm/dl Hct (34.1-44.9) % MCV (79.4-94.8) fl MCH (25.6-32.2) pg MCHC (32.2-35.5) g/dl RDW Std Deviation (36.4-46.3) fL Plt Count (182-369) K/mm3 MPV (9.4-12.3) fl Neut % (Auto) (34.0-71.1) % Lymph % (Auto) (19.3-51.7) % Richardson % (Auto) (4.7-12.5) % Eos % (Auto) (0.7-5.8) Baso % (Auto) (0.1-1.2) % Neut # (Auto) (1.56-6.13) K/mm3 Lymph # (Auto) (1.18-3.74) K/mm3 Richardson # (Auto) (0.24-0.36) K/mm3 Eos # (Auto) (0.04-0.36) K/mm3 Baso # (Auto) (0.01-0.08) K/mm3 Manual Slide Review Percent Retic 1.61 (0.50-1.70) % PT (9.7-12.0) SECONDS INR APTT (21.7-31.4) SECONDS Sodium (136-145) mEq/L Potassium (3.5-5.1) mEq/L Chloride (98-107) mEq/L Carbon Dioxide (21-32) mEq/L Anion Gap (5-15) BUN (7-18) mg/dL Creatinine (0.55-1.02) mg/dL Est Cr Clr Drug Dosing mL/min Estimated GFR (MDRD) (>60) mL/min BUN/Creatinine Ratio (14-18) Glucose (83-115) mg/dL Calcium (8.5-10.1) mg/dL Magnesium (1.8-2.4) mg/dl Iron (50-170) ug/dL TIBC (100-400) ug/dL % Saturation (20-55) % Transferrin (202-364) mg/dL Total Bilirubin (0.2-1.0) mg/dL AST (15-37) U/L ALT (14-59) U/L Alkaline Phosphatase (46-116) U/L Troponin I (0.00-0.056) ng/mL C-Reactive Protein (<1.0) mg/dL NT-Pro-B Natriuret Pep (0-450) pg/mL Total Protein (6.4-8.2) g/dl Albumin (3.4-5.0) g/dl Globulin gm/dL Albumin/Globulin Ratio (1-2) TSH 3rd Generation 2.302 (0.358-3.74) uIU/mL Urine Color Light yellow (Yellow) Urine Appearance Clear (Clear) Urine pH 6.0 (5.0-8.0) Ur Specific Peterson 1.015 (1.005-1.030) Urine Protein Negative (Negative) Urine Glucose (UA) Negative (Negative) Urine Ketones Negative (Negative) Urine Occult Blood Negative (Negative) Urine Nitrite Negative (Negative) Urine Bilirubin Negative (Negative) Urine Urobilinogen 0.2 (0.2-1.0) Ur Leukocyte Esterase Negative (Negative) U Hyaline Cast (Auto) 30-40 H (0-5) /lpf Urine RBC 0-5 (0-5) /hpf Urine WBC 0-5 (0-5) /hpf Ur Squamous Epith Cells 5-10 H (0-5) /hpf Urine Bacteria Few (FEW) /hpf Urine Mucus Few (FEW) /hpf SARS-CoV-2 RNA (AMINA) (NEGATIVE) MRSA (PCR) Blood Type Gel Antibody Screen Crossmatch 04/14/20 04/15/20 04/15/20 Range/Units 13:51 02:48 07:47 WBC 8.92 (3.98-10.04) K/mm3 RBC 4.24 (3.98-5.22) M/mm3 Hgb 9.8 L D (11.2-15.7) gm/dl Hct 31.9 L (34.1-44.9) % MCV 75.2 L (79.4-94.8) fl MCH 23.1 L (25.6-32.2) pg MCHC 30.7 L (32.2-35.5) g/dl RDW Std Deviation 51.1 H (36.4-46.3) fL Plt Count 288 (182-369) K/mm3 MPV 9.6 (9.4-12.3) fl Neut % (Auto) 64.9 (34.0-71.1) % Lymph % (Auto) 20.1 (19.3-51.7) % Richardson % (Auto) 9.6 (4.7-12.5) % Eos % (Auto) 4.5 (0.7-5.8) Baso % (Auto) 0.6 (0.1-1.2) % Neut # (Auto) 5.79 (1.56-6.13) K/mm3 Lymph # (Auto) 1.79 (1.18-3.74) K/mm3 Richardson # (Auto) 0.86 H (0.24-0.36) K/mm3 Eos # (Auto) 0.40 H (0.04-0.36) K/mm3 Baso # (Auto) 0.05 (0.01-0.08) K/mm3 Manual Slide Review Percent Retic (0.50-1.70) % PT (9.7-12.0) SECONDS INR APTT (21.7-31.4) SECONDS Sodium (136-145) mEq/L Potassium (3.5-5.1) mEq/L Chloride (98-107) mEq/L Carbon Dioxide (21-32) mEq/L Anion Gap (5-15) BUN (7-18) mg/dL Creatinine (0.55-1.02) mg/dL Est Cr Clr Drug Dosing mL/min Estimated GFR (MDRD) (>60) mL/min BUN/Creatinine Ratio (14-18) Glucose (83-115) mg/dL Calcium (8.5-10.1) mg/dL Magnesium (1.8-2.4) mg/dl Iron (50-170) ug/dL TIBC (100-400) ug/dL % Saturation (20-55) % Transferrin (202-364) mg/dL Total Bilirubin (0.2-1.0) mg/dL AST (15-37) U/L ALT (14-59) U/L Alkaline Phosphatase (46-116) U/L Troponin I (0.00-0.056) ng/mL C-Reactive Protein (<1.0) mg/dL NT-Pro-B Natriuret Pep (0-450) pg/mL Total Protein (6.4-8.2) g/dl Albumin (3.4-5.0) g/dl Globulin gm/dL Albumin/Globulin Ratio (1-2) TSH 3rd Generation (0.358-3.74) uIU/mL Urine Color (Yellow) Urine Appearance (Clear) Urine pH (5.0-8.0) Ur Specific Peterson (1.005-1.030) Urine Protein (Negative) Urine Glucose (UA) (Negative) Urine Ketones (Negative) Urine Occult Blood (Negative) Urine Nitrite (Negative) Urine Bilirubin (Negative) Urine Urobilinogen (0.2-1.0) Ur Leukocyte Esterase (Negative) U Hyaline Cast (Auto) (0-5) /lpf Urine RBC (0-5) /hpf Urine WBC (0-5) /hpf Ur Squamous Epith Cells (0-5) /hpf Urine Bacteria (FEW) /hpf Urine Mucus (FEW) /hpf SARS-CoV-2 RNA (AMINA) Negative (NEGATIVE) MRSA (PCR) Negative Blood Type Gel Antibody Screen Crossmatch Med Orders - Current: Current Medications Acetaminophen (Tylenol) 650 mg PO Q4H PRN PRN Reason: Pain (Mild 1-3)/fever Allopurinol (Zyloprim) 300 mg PO BEDTIME [facility] Last Admin: 04/14/20 23:47 Dose: 300 mg Documented by: Sodium Chloride (Normal Saline) 1,000 mls @ 75 mls/hr IV ASDIRECTED [facility] Last Admin: 04/14/20 11:09 Dose: 75 mls/hr Documented by: Non-Formulary Medication (Albuterol) 2 puff INH BID PRN PRN Reason: Shortness of Breath Non-Formulary Medication (Albuterol/Ipratropium [Duoneb 3.0-0.5 Mg/3 Ml]) 3 ml INH BID PRN PRN Reason: Shortness of Breath Dicyclomine 20 Mg (TabPt Own Med) 20 mg PO QID [facility] Last Admin: 04/14/20 23:45 Dose: 20 mg Documented by: Non-Formulary Medication (Docusate Sodium [Colace]) 100 mg PO BID [facility] Non-Formulary Medication (Fluticasone Propionate [Flovent Hfa 220 Mcg]) 1 puff PO BID [facility] Non-Formulary Medication (Furosemide [Furosemide]) 40 mg PO DAILY [facility] Non-Formulary Medication (Lisinopril [Lisinopril]) 20 mg PO DAILY [facility] Non-Formulary Medication (Mometasone Furoate [Asmanex Hfa]) 1 puff INH BID [facility] Non-Formulary Medication (Nitroglycerin [Nitroglycerin]) 0.4 mg PO Q5M PRN PRN Reason: Chest Pain Non-Formulary Medication (Pantoprazole [Protonix]) 40 mg PO DAILY [facility] Non-Formulary Medication (Potassium Chloride [Potassium Chloride]) 20 meq PO DAILY [facility] Rosuvastatin Calcium [Crestor] 40 Mg Tab Pt Own Med 40 mg PO BEDTIME [facility] Last Admin: 04/14/20 23:46 Dose: 40 mg Documented by: Sertraline [Zoloft] 100 Mg TabPt Own Med 50 mg PO BEDTIME [facility] Last Admin: 04/14/20 23:46 Dose: 50 mg Documented by: Non-Formulary Medication (Warfarin [Coumadin]) 2.5 mg PO TUFR [facility] Warfarin [Coumadin] 5 Mg TabPt Own Med 5 mg PO [email or web address] [facility] Last Admin: 04/14/20 23:46 Dose: 5 mg Documented by: Ondansetron HCl (Zofran) 4 mg IV Q4H PRN PRN Reason: Nausea/Vomiting Discontinued Medications Furosemide (Lasix) 40 mg IVPUSH NOW ONE Stop: 04/14/20 14:51 Last Admin: 04/14/20 15:28 Dose: 40 mg Documented by: Furosemide (Lasix) 20 mg IVPUSH ONETIME ONE Stop: 04/14/20 20:00 Last Admin: 04/14/20 20:21 Dose: 20 mg Documented by: - Exam Quality Assessment: Reports: DVT Prophylaxis. Denies: Supplemental Oxygen, Urine Catheter General: Reports: Alert, Cooperative, No Acute Distress HEENT: Reports: Pupils Equal, Pupils Reactive, Mucous Membr. Moist/Wagner Neck: Reports: Supple, Trachea Midline Lungs: Reports: Clear to Auscultation, Normal Respiratory Effort Cardiovascular: Reports: Regular Rate, Regular Rhythm, Murmurs GI/Abdominal Exam: Normal Bowel Sounds, Soft, Non-Tender, No Distention (Female) Exam: Deferred Rectal (Female) Exam: Deferred Back Exam: Reports: Normal Inspection, Decreased Range of Motion Extremities: Normal Inspection, Non-Tender, Normal Capillary Refill, Pedal Edema, Limited Range of Motion Skin: Reports: Warm, Dry, Intact Neurological: Reports: No New Focal Deficit Psy/Mental Status: Reports: Alert
[2020-04-15] MEDS: DICYCLOMINE 20 MG PO SCH (08:52)
[2020-04-15] MEDS ORDERED: Pantoprazole 40 MG Tab.CR **PTOM PO SCH (09:00)
[2020-04-15] MEDS ORDERED: POTASSIUM CHLORIDE 20 MEQ PO SCH (09:00)
[2020-04-15] MEDS ORDERED: Furosemide 40 MG Tab **PTOM PO SCH (09:00)
[2020-04-15] MEDS ORDERED: Docusate Sodium 100 MG Cap PO SCH (09:00)
[2020-04-15] MEDS ORDERED: Lisinopril 20 MG Tab **PTOM PO SCH (09:00)
[2020-04-15] MEDS ORDERED: Non-Formulary Medication 1 Each (Warfarin [Coumadin] 2.5 MG) PO SCH (20:08)
== END 2020-04-15 09:30 | disposition home or self-care (01) ==
LOC: JD.ED 10:06 → JD.MS 13:56
PROVIDERS: ADMIT Family Medicine; ATTEND Family Medicine
DX: D50.0 Iron deficiency anemia secondary to blood loss (chronic) (principal); I25.10 Atherosclerotic heart disease of native coronary artery without angina pectoris; E78.00 Pure hypercholesterolemia, unspecified; I13.0 Hypertensive heart and chronic kidney disease with heart failure and stage 1 through stage 4 chronic kidney disease, or unspecified chronic kidney disease; E11.22 Type 2 diabetes mellitus with diabetic chronic kidney disease; E11.40 Type 2 diabetes mellitus with diabetic neuropathy, unspecified; I50.32 Chronic diastolic (congestive) heart failure; N18.4 Chronic kidney disease, stage 4 (severe); Z20.822 Contact with and (suspected) exposure to COVID-19; Z88.0 Allergy status to penicillin; Z91.040 Latex allergy status; Z91.018 Allergy to other foods; Z79.899 Other long term (current) drug therapy; Z79.82 Long term (current) use of aspirin; Z79.02 Long term (current) use of antithrombotics/antiplatelets; Z98.890 Other specified postprocedural states
CPT/HCPCS: 36415; 71045; 80048; 80053; 81001; 83540; 83735; 83880; 84443; 84466; 84484; 85025; 85045; 85610; 85730; 86140; 87641; 93005; A9270; J1940; J7030; P9016; U0002; 36430; 86850; 86900; 86901; 86922; 93010; 96374; 96376; 99217; 99219; 99285; 99285-25; G0378

== ENCOUNTER 2020-08-31 16:24 | Emergency (ER) | payer MEDICARE, MEDICAID ==
--- NOTE | 2020-08-31 16:56 | EDM.PDOC ---
ED HPI GENERAL MEDICAL PROBLEM - General Chief Complaint: Genitourinary Problem Stated Complaint: UNABLE TO URINATE Time Seen by Provider: 08/31/20 16:42 Source of Information: Reports: Patient, RN Notes Reviewed History Limitations: Reports: No Limitations - History of Present Illness INITIAL COMMENTS - FREE TEXT/NARRATIVE: Patient is a 80-year-old female who presents to the ER for evaluation of her urinary retention. Patient notes for the last 2 days, she has been having issues where she feels like when she goes to the bathroom, all she is doing is dribbling and not emptying her bladder. She is complaining of abdominal fullness but no pain, she is not had any fevers or chills, nausea vomiting or diarrhea. States she has had some issues with constipation in the last few days but this seems to be getting better with Dulcolax and MiraLAX. She is a patient of Dr. Munroe, and states that her last checkup went well and her GFR was around 46. The patient is denying any dysuria, frequency or urgency components. Bladder scan at time of triage did demonstrate 518 mils of urine within her bladder. Abdomen Pain Score (Numeric/FACES): 5 - Related Data Allergies Allergy/AdvReac Type Severity Reaction Status Date / Time latex Allergy Severe Rash Verified 08/31/20 16:38 Penicillins Allergy Severe Swelling Verified 08/31/20 16:38 pineapple Allergy Severe Rash Verified 08/31/20 16:38 Home Meds: Home Meds Albuterol/Ipratropium [DuoNeb 3.0-0.5 MG/3 ML] 3 ml INH BID PRN 10/16/18 [History] Aspirin 81 mg PO DAILY 10/16/18 [History] Dicyclomine [Bentyl] 20 mg PO QID 10/16/18 [History] Furosemide 40 mg PO DAILY 10/16/18 [History] Nitroglycerin 0.4 mg PO Q5M PRN MDD 3 doses 10/16/18 [History] Pantoprazole [ProTONIX] 40 mg PO DAILY 10/16/18 [History] Potassium Chloride 20 meq PO DAILY 10/16/18 [History] Sertraline [Zoloft] 50 mg PO BEDTIME 10/16/18 [History] allopurinoL [Zyloprim] 300 mg PO DAILY 10/16/18 [History] Albuterol [Ventolin HFA] 2 puff INH BID PRN 11/20/19 [History] Docusate Sodium [Colace] 100 mg PO BID 11/20/19 [History] Rosuvastatin Calcium [Crestor] 40 mg PO DAILY 11/20/19 [History] lisinopriL [Lisinopril] 20 mg PO DAILY 11/20/19 [History] Warfarin [Coumadin] 2.5 mg PO MOWEFR 02/22/20 [History] Warfarin [Coumadin] 5 mg PO SUTUTHSA 02/22/20 [History] Cholecalciferol (Vitamin D3) [Vitamin D3] 25 mcg PO DAILY 04/14/20 [History] Fluticasone Propionate [Flovent HFA 220 MCG] 1 puff PO BID 04/14/20 [History] Ascorbic Acid [Vitamin C] 250 mg PO DAILY 08/31/20 [History] Cefdinir [Omnicef] 300 mg PO BID 7 Days #14 cap 08/31/20 [Rx] Ferrous Sulfate 325 mg PO MOWEFR 08/31/20 [History] Mometasone Furoate [Nasonex Sumner] 1 spray CONRAD BID 08/31/20 [History] Olopatadine HCl [Pataday] 1 drop EYEBOTH BID 08/31/20 [History] polyethylene glycoL 3350 [MiraLAX] 1 pkg PO DAILY 08/31/20 [History] Past Medical History HEENT History: Reports: Cataract, Impaired Vision, Other (See Below) Other HEENT History: wears eyeglasses Cardiovascular History: Reports: Angina, Arrhythmia, Blood Clots/VTE/DVT, CAD, Heart Failure, High Cholesterol, Hypertension, Stents Other Cardiovascular History: carotid artery disease, ventricular bigeminy, bradycardia, hypotension Respiratory History: Reports: Asthma, COPD, Pneumonia, Recurrent, Other (See Below) Other Respiratory History: used to wear O2 at night, but doesn't anymore Gastrointestinal History: Reports: Chronic Constipation, GERD, GI Bleed, Hemorrhoids, Hiatal Hernia, Irritable Bowel Syndrome Genitourinary History: Reports: Chronic Renal Insuffiency Other Genitourinary History: renal disease, CKD III BUTCHER APPRENTICE History: Reports: Other BUTCHER APPRENTICE History: hysterectomy Musculoskeletal History: Reports: Arthritis, Back Pain, Chronic, Gout, Osteoarthritis, Osteoporosis Other Musculoskeletal History: Left sided sciatica, plantar fascia syndrome Neurological History: Reports: CVA, Neuropathy, Diabetic Other Neuro History: dizziness Psychiatric History: Reports: Anxiety, Depression Endocrine/Metabolic History: Reports: Diabetes, Type II, Obesity/BMI 30+ Hematologic History: Reports: Anemia, Anticoagulation Therapy, Blood Transfusion(s), Iron Deficiency Other Hematologic History: hypercalcemia, hyperkalemia Immunologic History: Reports: None Oncologic (Cancer) History: Reports: None Dermatologic History: Reports: Eczema Other Dermatologic History: eczema - Infectious Disease History Infectious Disease History: Reports: Influenza, RSV - Past Surgical History HEENT Surgical History: Reports: Cataract Surgery Other HEENT Surgeries/Procedures: Pt. has history of cataract surgery. Cardiovascular Surgical History: Reports: Coronary Artery Stent, Percutaneous Transluminal Angioplasty Other Cardiovascular Surgeries/Procedures: Doctors have been keeping an eye on her left and right carotid GI Surgical History: Reports: Colonoscopy, Hernia Repair/Other, Other (See Below) Other GI Surgeries/Procedures: hemorhoidectomy Female Surgical History: Reports: Hysterectomy Other Female Surgeries/Procedures: Musculoskeletal Surgical History: Reports: Carpal Tunnel Social & Family History - Family History Family Medical History: No Pertinent Family History HEENT: Reports: Hearing Impairment Cardiac: Reports: High Cholesterol, Hypertension Respiratory: Reports: Asthma : Reports: Renal Disease/Insufficiency Musculoskeletal: Reports: Arthritis, Back pain, Chronic, Gout Neurological: Reports: Seizure Psychiatric: Reports: Schizophrenia Endocrine/Metabolic: Reports: Diabetes, Type I, Diabetes, type II, Obesity/MBI 30+ Dermatologic: Reports: Eczema Oncologic: Reports: Bone, Lung - Tobacco Use Tobacco Use Status *Q: Never Tobacco User - Caffeine Use Caffeine Use: Reports: Coffee Other Caffeine Use: cup of coffee every morning Caffeine Use Comment: Drinks about 1 cup of coffee and 1-2 cups of iced tea a day. - Recreational Drug Use Recreational Drug Use: No - Living Situation & Occupation Living situation: Reports: , Alone Occupation: Retired ED ROS GENERAL - Review of Systems Review Of Systems: Comprehensive ROS is negative, except as noted in HPI. ED EXAM, RENAL/ - Physical Exam Exam: See Below Exam Limited By: No Limitations General Appearance: Alert, WD/WN, No Apparent Distress Respiratory/Chest: No Respiratory Distress, Lungs Clear, Normal Breath Sounds, No Accessory Muscle Use, Chest Non-Tender Cardiovascular: Normal Peripheral Pulses, Regular Rate, Rhythm, No Edema GI/Abdominal: Normal Bowel Sounds, Soft, Non-Tender, No Distention, No Mass Neurological: Alert, Oriented, Normal Cognition, No Motor/Sensory Deficits Psychiatric: Normal Affect, Normal Mood Skin Exam: Warm, Dry, Intact, Normal Color, No Rash Course - Vital Signs Last Recorded V/S: Last Vital Signs Temp 97.2 F 08/31/20 16:35 Pulse 98 08/31/20 16:35 Resp 20 08/31/20 16:35 BP 195/59 H 08/31/20 16:35 Pulse Ox 97 08/31/20 16:35 - Orders/Labs/Meds Orders: Active Orders 24 hr Category Date Time Status Bladder Scan [RC] ASDIRECTED Care 08/31/20 16:39 Ordered CULTURE URINE [MREF] Urgent Lab 08/31/20 17:35 Ordered Labs: Laboratory Tests 08/31/20 Range/Units 17:02 Urine Color Yellow (Yellow) Urine Appearance Slt cloudy H (Clear) Urine pH 6.5 (5.0-8.0) Ur Specific Antelope 1.015 (1.005-1.030) Urine Protein 1+ H (Negative) Urine Glucose (UA) Negative (Negative) Urine Ketones Negative (Negative) Urine Occult Blood Trace-lysed H (Negative) Urine Nitrite Negative (Negative) Urine Bilirubin Negative (Negative) Urine Urobilinogen 0.2 (0.2-1.0) Ur Leukocyte Esterase 3+ H (Negative) Urine RBC 5-10 H (0-5) /hpf Urine WBC 75-100 H (0-5) /hpf Ur Squamous Epith Cells 5-10 H (0-5) /hpf Urine Bacteria Many H (FEW) /hpf Urine Mucus Few (FEW) /hpf Meds: Medications Discontinued Medications Generic Name Dose Route Start Last Admin Trade Name Freq PRN Reason Stop Dose Admin Cefdinir 300 mg 08/31/20 17:44 Cefdinir 300 Mg Cap PO 08/31/20 17:45 ONETIME ONE - Re-Assessments/Exams Free Text/Narrative Re-Assessment/Exam: 08/31/20 16:55 Patient presents to the ER for the evaluation of her possible urinary retention, she does have 518 mils of urine within her bladder prior to voiding, we will go ahead and have her try to void, obtain a urine sample as well, and then entertain the thought of placing a Browning catheter for urinary retention. Patient verbalized understanding of this plan. A look at her med list, does not demonstrate any major medications that should be causing urinary retention, other than ipratropium from the DuoNeb. 08/31/20 17:44 Urinalysis is grossly positive for UTI, we will go ahead and start her on Omnicef, I do believe this is the source of her urinary issues, I did tell the patient if she does not have much increase in her urinary output in 24 to 48 hours, that she should probably be checked out again to make sure that she does not in fact need a Browning placed. Patient verbalized understanding. Urine culture has been sent. Departure - Departure Time of Disposition: 17:45 Disposition: Home, Self-Care 01 Condition: Good Clinical Impression: UTI, Urinary tract infectious disease - Discharge Information *PRESCRIPTION DRUG MONITORING PROGRAM REVIEWED*: No *COPY OF PRESCRIPTION DRUG MONITORING REPORT IN PATIENT CHRISTOPHE: No Prescriptions: Cefdinir [Omnicef] 300 mg PO BID 7 Days #14 cap Instructions: Urinary Tract Infection, Adult, [id number] Referrals: Jabari Robins MD [Primary Care Provider] - Forms: ED Department Discharge Additional Instructions: You have been evaluated in the ED for your urinary symptoms. Your urinalysis was consistent with an acute urinary tract infection. Your urine was sent for culture, and you will be notified if you should need a change in your antibiotic. This may take up to 48 hours to result. You have been given a prescription for Omnicef (cefdinir), 300 mg 1 tablet 2 times a day for 7 days. Please note that the antibiotics can take up to 48 hours to start working. Your first dose was given in the ER today. This medication was electronically sent to [facility] the [facility]. If you do not notice an increase in your urinary output after the first 48 hours of oral antibiotic medications, please do not hesitate to return to the ER at any time for Browning catheter placement for urinary retention. Please increase your oral fluid intake and try to stay adequately hydrated. Please return to the ED if your symptoms change or worsen. Sepsis Event Note (ED) - Evaluation Sepsis Screening Result: No Definite Risk - Focused Exam Vital Signs: Vital Signs Temp Pulse Resp BP Pulse Ox 08/31/20 16:35 97.2 F 98 20 195/59 H 97 - My Orders Last 24 Hours: My Active Orders 08/31/20 16:39 Bladder Scan [RC] ASDIRECTED 08/31/20 17:35 CULTURE URINE [MREF] Urgent - Assessment/Plan Last 24 Hours: My Active Orders 08/31/20 16:39 Bladder Scan [RC] ASDIRECTED 08/31/20 17:35 CULTURE URINE [MREF] Urgent
[2020-08-31] MEDS ORDERED: Cefdinir 300 MG Cap PO ONE (17:44)
[2020-08-31 17:59] VITALS: PULSE 74
[2020-08-31 18:03] VITALS: BP 186/70
== END 2020-08-31 18:10 | disposition home or self-care (01) ==
LOC: JD.ED 16:24
DX: N39.0 Urinary tract infection, site not specified (principal); I25.10 Atherosclerotic heart disease of native coronary artery without angina pectoris; E78.00 Pure hypercholesterolemia, unspecified; E11.22 Type 2 diabetes mellitus with diabetic chronic kidney disease; I13.0 Hypertensive heart and chronic kidney disease with heart failure and stage 1 through stage 4 chronic kidney disease, or unspecified chronic kidney disease; N18.30 Chronic kidney disease, stage 3 unspecified; I50.9 Heart failure, unspecified; K21.9 Gastro-esophageal reflux disease without esophagitis; Z79.01 Long term (current) use of anticoagulants; Z86.718 Personal history of other venous thrombosis and embolism; Z95.5 Presence of coronary angioplasty implant and graft; Z88.0 Allergy status to penicillin; Z91.040 Latex allergy status; Z91.018 Allergy to other foods; Z79.899 Other long term (current) drug therapy
CPT/HCPCS: 81001; 87086; 87088; 87186; 99284; A9270; 99283

== ENCOUNTER 2020-09-04 14:03 | Emergency (ER) | payer MEDICARE, MEDICAID ==
[2020-09-04 14:26] VITALS: BP 188/88; PULSE 62
--- NOTE | 2020-09-04 14:34 | EDM.PDOC ---
ED HPI GENERAL MEDICAL PROBLEM - General Chief Complaint: Genitourinary Problem Stated Complaint: UNABLE TO URINATE Time Seen by Provider: 09/04/20 14:28 Source of Information: Reports: Patient History Limitations: Reports: No Limitations - History of Present Illness INITIAL COMMENTS - FREE TEXT/NARRATIVE: She states she is only dribbles a few drops of urine. She was seen in the ED on August 31 with similar problems. She was identified to be growing out E. coli greater than 100,000 colony-forming units per mL from her bladder at that time. She had received an injection of Rocephin 1 g IV and started on Omnicef 300 mg twice daily which she is still taking. She denies use of any other medications with anticholinergic effects particularly that would paralyze her bladder. She has poor renal function and is following up with Dr. Zamarripa crystal evaluator in this regard. She denies having any significant abdominal pain or discomfort. She has room to eat. No nausea or vomiting. Bowels are working okay as she takes MiraLAX daily. Again she denies any new medications within the last month. Not using Benadryl to help sleep at night. Onset: Today Onset Date: 09/04/20 Onset Time: 07:00 Duration: Hour(s):, Constant, Getting Worse Location: Reports: Abdomen (Still unable to void. Lower abdominal discomfort) Quality: Reports: Ache (And pressure. 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: Reports: Other (see below) (None.) Lower Back Pain Score (Numeric/FACES): 2 - Related Data Allergies Allergy/AdvReac Type Severity Reaction Status Date / Time Penicillins Allergy Severe Swelling Verified 08/31/20 16:38 latex Allergy Intermediate Rash Verified 09/01/20 15:20 pineapple Allergy Intermediate Rash Verified 09/01/20 15:20 Home Meds: Home Meds Albuterol/Ipratropium [DuoNeb 3.0-0.5 MG/3 ML] 3 ml INH BID PRN 10/16/18 [History] Aspirin 81 mg PO DAILY 10/16/18 [History] Dicyclomine [Bentyl] 20 mg PO QID 10/16/18 [History] Furosemide 40 mg PO DAILY 10/16/18 [History] Nitroglycerin 0.4 mg PO Q5M PRN MDD 3 doses 10/16/18 [History] Pantoprazole [ProTONIX] 40 mg PO DAILY 10/16/18 [History] Potassium Chloride 20 meq PO DAILY 10/16/18 [History] Sertraline [Zoloft] 50 mg PO BEDTIME 10/16/18 [History] allopurinoL [Zyloprim] 300 mg PO DAILY 10/16/18 [History] Albuterol [Ventolin HFA] 2 puff INH BID PRN 11/20/19 [History] Docusate Sodium [Colace] 100 mg PO BID 11/20/19 [History] Rosuvastatin Calcium [Crestor] 40 mg PO DAILY 11/20/19 [History] lisinopriL [Lisinopril] 20 mg PO DAILY 11/20/19 [History] Warfarin [Coumadin] 2.5 mg PO MOWEFR 02/22/20 [History] Warfarin [Coumadin] 5 mg PO SUTUTHSA 02/22/20 [History] Cholecalciferol (Vitamin D3) [Vitamin D3] 25 mcg PO DAILY 04/14/20 [History] Fluticasone Propionate [Flovent HFA 220 MCG] 1 puff PO BID 04/14/20 [History] Ascorbic Acid [Vitamin C] 250 mg PO DAILY 08/31/20 [History] Cefdinir [Omnicef] 300 mg PO BID 7 Days #14 cap 08/31/20 [Rx] Ferrous Sulfate 325 mg PO MOWEFR 08/31/20 [History] Mometasone Furoate [Nasonex Brick] 1 spray CONRAD BID 08/31/20 [History] Olopatadine HCl [Pataday] 1 drop EYEBOTH BID 08/31/20 [History] polyethylene glycoL 3350 [MiraLAX] 1 pkg PO DAILY 08/31/20 [History] Past Medical History HEENT History: Reports: Cataract, Impaired Vision, Other (See Below) Other HEENT History: wears eyeglasses Cardiovascular History: Reports: Angina, Arrhythmia, Blood Clots/VTE/DVT, CAD, Heart Failure, High Cholesterol, Hypertension, Stents Other Cardiovascular History: carotid artery disease, ventricular bigeminy, bradycardia, hypotension Respiratory History: Reports: Asthma, COPD, Pneumonia, Recurrent, Other (See Below) Other Respiratory History: used to wear O2 at night, but doesn't anymore Gastrointestinal History: Reports: Chronic Constipation, GERD, GI Bleed, Hemorrhoids, Hiatal Hernia, Irritable Bowel Syndrome Genitourinary History: Reports: Chronic Renal Insuffiency Other Genitourinary History: renal disease, CKD III BEHAVIORAL HEALTH CLINICIAN History: Reports: Other BEHAVIORAL HEALTH CLINICIAN History: hysterectomy Musculoskeletal History: Reports: Arthritis, Back Pain, Chronic, Gout, Osteoarthritis, Osteoporosis Other Musculoskeletal History: Left sided sciatica, plantar fascia syndrome Neurological History: Reports: CVA, Neuropathy, Diabetic Other Neuro History: dizziness Psychiatric History: Reports: Anxiety, Depression Endocrine/Metabolic History: Reports: Diabetes, Type II, Obesity/BMI 30+ Hematologic History: Reports: Anemia, Anticoagulation Therapy, Blood Transfusion(s), Iron Deficiency Other Hematologic History: hypercalcemia, hyperkalemia Immunologic History: Reports: None Oncologic (Cancer) History: Reports: None Dermatologic History: Reports: Eczema Other Dermatologic History: eczema - Infectious Disease History Infectious Disease History: Reports: Influenza, RSV - Past Surgical History HEENT Surgical History: Reports: Cataract Surgery Other HEENT Surgeries/Procedures: Pt. has history of cataract surgery. Cardiovascular Surgical History: Reports: Coronary Artery Stent, Percutaneous Transluminal Angioplasty Other Cardiovascular Surgeries/Procedures: Doctors have been keeping an eye on her left and right carotid GI Surgical History: Reports: Colonoscopy, Hernia Repair/Other, Other (See Below) Other GI Surgeries/Procedures: hemorhoidectomy Female Surgical History: Reports: Hysterectomy Other Female Surgeries/Procedures: Musculoskeletal Surgical History: Reports: Carpal Tunnel Social & Family History - Family History Family Medical History: No Pertinent Family History HEENT: Reports: Hearing Impairment Cardiac: Reports: High Cholesterol, Hypertension Respiratory: Reports: Asthma : Reports: Renal Disease/Insufficiency Musculoskeletal: Reports: Arthritis, Back pain, Chronic, Gout Neurological: Reports: Seizure Psychiatric: Reports: Schizophrenia Endocrine/Metabolic: Reports: Diabetes, Type I, Diabetes, type II, Obesity/MBI 30+ Dermatologic: Reports: Eczema Oncologic: Reports: Bone, Lung - Caffeine Use Caffeine Use: Reports: Coffee Other Caffeine Use: cup of coffee every morning Caffeine Use Comment: Drinks about 1 cup of coffee and 1-2 cups of iced tea a day. - Living Situation & Occupation Living situation: Reports: , Alone Occupation: Retired ED ROS GENERAL - Review of Systems Review Of Systems: See Below Constitutional: Reports: Malaise, Fatigue. Denies: Fever, Chills, Weight Loss HEENT: Reports: Glasses Respiratory: Reports: No Symptoms Cardiovascular: Reports: Blood Pressure Problem, Dyspnea on Exertion, Edema. Denies: Claudication, Lightheadedness, Orthopnea Endocrine: Reports: Fatigue GI/Abdominal: Reports: Abdominal Pain (Lower abdominal pressure discomfort). Denies: Constipation, Diarrhea, Decreased Appetite, Difficulty Swallowing, Distension, Flatus, Hematemesis, Hematochezia, Melena, Mucous in Stool, Nausea, Stool Incontinence, Vomiting, Other : Reports: Urinary Retention (Acute urinary retention. She had a similar event on August 01 and recurrence) Musculoskeletal: Reports: Joint Pain (Knees hips low back and neck at times.) Skin: Reports: Bruising (Bruises easily since she is on Coumadin) Neurological: Denies: Dizziness, Headache, Numbness, Syncope, Tingling, Weakness Psychiatric: Reports: Depression Hematologic/Lymphatic: Reports: No Symptoms Immunologic: Reports: No Symptoms ED EXAM, GI/ABD - Physical Exam Exam: See Below Exam Limited By: No Limitations General Appearance: Alert, WD/WN, No Apparent Distress, Other (Temperature is 36.6 degrees. Heart rate 62 and sinus. Respiratory is 20 with O2 sats of 98% room air. BP elevated 188/88.) Eyes: Bilateral: Normal Appearance (Mild blepharal pallor no scleral icterus.) Throat/Mouth: Normal Inspection, Normal Lips, Normal Oropharynx Head: Atraumatic, Normocephalic Neck: Normal Inspection, Supple, Non-Tender, Full Range of Motion. No: Carotid Bruit, Lymphadenopathy (L), Lymphadenopathy (R) Respiratory/Chest: Lungs Clear, Normal Breath Sounds, Respiratory Distress (Mild tachypnea.), Decreased Breath Sounds (Breath sounds are minimally decreased to both posterior lung casper). No: Rhonchi, Wheezing Cardiovascular: Regular Rate, Rhythm, No Edema, No Gallop, No Murmur, No Rub. No: Normal Peripheral Pulses GI/Abdominal Exam: Normal Bowel Sounds, Soft, Non-Tender, No Organomegaly, Pelvis Stable, Other (Urinary bladder does appear to be full up to the umbilicus. Dullness to percussion in this area.) Back Exam: Normal Inspection, Full Range of Motion. No: CVA Tenderness (L), CVA Tenderness (R) Extremities: Normal Inspection, No Pedal Edema, Other (Evidence of osteoarthritic changes both knees both hips) Neurological: Alert, Oriented, CN II-XII Intact, Normal Cognition Psychiatric: Normal Affect, Normal Mood Skin Exam: Warm, Dry, Intact, Normal Color, No Rash Course - Vital Signs Last Recorded V/S: Last Vital Signs Temp 36.6 C 09/04/20 14:25 Pulse 62 09/04/20 14:25 Resp 20 09/04/20 14:25 BP 188/88 H 09/04/20 14:25 Pulse Ox 98 09/04/20 14:25 - Orders/Labs/Meds Orders: Active Orders 24 hr Category Date Time Status Bladder Scan [RC] ASDIRECTED Care 09/04/20 14:32 Active Insert Sykes Catheter [Insert Urinary Catheter] [OM.PC] Care 09/04/20 14:45 Ordered Q24H Urinary Catheter Assessment [RC] ASDIRECTED Care 09/04/20 14:34 Active Labs: Laboratory Tests 09/04/20 09/04/20 09/04/20 Range/Units 14:49 14:49 15:12 WBC 8.79 (3.98-10.04) K/mm3 RBC 3.96 L (3.98-5.22) M/mm3 Hgb 12.0 D (11.2-15.7) gm/dl Hct 37.1 (34.1-44.9) % MCV 93.7 D (79.4-94.8) fl MCH 30.3 (25.6-32.2) pg MCHC 32.3 (32.2-35.5) g/dl RDW Std Deviation 47.1 H (36.4-46.3) fL Plt Count 251 (182-369) K/mm3 MPV 9.6 (9.4-12.3) fl Neut % (Auto) 56.1 (34.0-71.1) % Lymph % (Auto) 30.5 (19.3-51.7) % Bradford % (Auto) 10.9 (4.7-12.5) % Eos % (Auto) 1.7 (0.7-5.8) Baso % (Auto) 0.5 (0.1-1.2) % Neut # (Auto) 4.93 (1.56-6.13) K/mm3 Lymph # (Auto) 2.68 (1.18-3.74) K/mm3 Bradford # (Auto) 0.96 H (0.24-0.36) K/mm3 Eos # (Auto) 0.15 (0.04-0.36) K/mm3 Baso # (Auto) 0.04 (0.01-0.08) K/mm3 Sodium 129 L D (136-145) mEq/L Potassium 4.9 (3.5-5.1) mEq/L Chloride 95 L (98-107) mEq/L Carbon Dioxide 29 (21-32) mEq/L Anion Gap 9.9 (5-15) BUN 22 H (7-18) mg/dL Creatinine 1.3 H (0.55-1.02) mg/dL Est Cr Clr Drug Dosing 31.57 mL/min Estimated GFR (MDRD) 40 (>60) mL/min BUN/Creatinine Ratio 16.9 (14-18) Glucose 98 (70-99) mg/dL Calcium 9.9 (8.5-10.1) mg/dL Total Bilirubin 0.3 (0.2-1.0) mg/dL AST 23 (15-37) U/L ALT 27 (14-59) U/L Alkaline Phosphatase 57 (46-116) U/L Total Protein 6.6 (6.4-8.2) g/dl Albumin 2.8 L (3.4-5.0) g/dl Globulin 3.8 gm/dL Albumin/Globulin Ratio 0.7 L (1-2) Urine Color Yellow (Yellow) Urine Appearance Clear (Clear) Urine pH 7.0 (5.0-8.0) Ur Specific [place] 1.015 (1.005-1.030) Urine Protein 1+ H (Negative) Urine Glucose (UA) Negative (Negative) Urine Ketones Negative (Negative) Urine Occult Blood Negative (Negative) Urine Nitrite Negative (Negative) Urine Bilirubin Negative (Negative) Urine Urobilinogen 0.2 (0.2-1.0) Ur Leukocyte Esterase Negative (Negative) Urine RBC 0-5 (0-5) /hpf Urine WBC 0-5 (0-5) /hpf Ur Squamous Epith Cells 0-5 (0-5) /hpf Urine Bacteria Few (FEW) /hpf Urine Mucus Few (FEW) /hpf - Radiology Interpretation Free Text/Narrative:: 80-year-old female presents to the ED with inability to void since getting up this morning. She states she is passed only a few dribbles of urine. She is in no real discomfort. Umbilicus clinically is palpable up to her umbilicus. She presented to the ED on August 31 with a similar problem and was found to have a urinary tract infection. She is growing out E. coli greater than 100,000 colony-forming units. She received Rocephin 1 g IV and was placed on Omnicef 300 mg twice daily which she is still taking. The organism should be sensitive to this antibiotic. Plan she will have a bladder scan followed by indwelling Sykes catheter placement. CBC CMP and CRP and urinalysis will be done since she has a decline in renal function which will only be aggravated by obstructive uropathy. She appears to be developing a neurogenic bladder. 2 medications that she is on i.e. Atrovent and sertraline both could be causing some problems with the urinary bladder. - Re-Assessments/Exams Free Text/Narrative Re-Assessment/Exam: 09/04/20 16:00 White count is normal at 8.79. The differential shows 56% neutrophils on the auto differential. Hemoglobin is 12.0 with hematocrit of 37.1. Platelet count 251,000. Sodium is low at 129 with a potassium of 4.9. Chloride is 95 with a bicarb of 29. Anion gap is 9.9 with a BUN of 22. Creatinine is 1.3 with a GFR of 40. Glucose is 98. Calcium is 9.9. Liver function is normal. Total protein is 6.6 with an albumin fraction low at 2.8. Urinalysis today is yellow clear with 1+ proteinuria and negative leukocyte esterase. 09/04/20 16:10: I did speak with Dr Owens and he will have the patient follow up with him in clinic next week and then arrange a urology consultation. Patient will be discharged home with sykes catheter problem. Departure - Departure Time of Disposition: 16:05 Disposition: Home, Self-Care 01 Condition: Fair Clinical Impression: Acute urinary retention, Neurogenic bladder - Discharge Information *PRESCRIPTION DRUG MONITORING PROGRAM REVIEWED*: Not Applicable *COPY OF PRESCRIPTION DRUG MONITORING REPORT IN PATIENT CHRISTOPHE: Not Applicable Instructions: Acute Urinary Retention, Female Referrals: Jabari Robins MD [Primary Care Provider] - Forms: ED Department Discharge Additional Instructions: Evaluation in the emergency room today in regards to once again being unable to pass your water on your own. We call this urinary retention. The urine testing today was crystal-clear indicating that the previous infection being treated with antibiotics is working well. Please finish up the Omnicef tablets that you are taking for infection. A Sykes catheter was placed in your bladder and drained off more than 700 mils of urine indicating the mari of the bladder are weak and are not tobias normally to push the urine out. We call this a neurogenic bladder. Causes of this can vary. You will have to see a urologist a specialist in this area to help decide best how to manage the situation. The Sykes catheter should remain in place until urology consultation. I did speak with Dr. Owens today and he indicates you should make an appointment next week and he will try and arrange a urologist to see you as soon as possible. No other changes to medications are to be made at this time Sepsis Event Note (ED) - Evaluation Sepsis Screening Result: No Definite Risk - Focused Exam Vital Signs: Vital Signs Temp Pulse Resp BP Pulse Ox 09/04/20 14:25 36.6 C 62 20 188/88 H 98 - My Orders Last 24 Hours: My Active Orders 09/04/20 14:32 Bladder Scan [RC] ASDIRECTED 09/04/20 14:34 Urinary Catheter Assessment [RC] ASDIRECTED 09/04/20 14:45 Insert Sykes Catheter [Insert Urinary Catheter] [OM.PC] Q24H - Assessment/Plan Last 24 Hours: My Active Orders 09/04/20 14:32 Bladder Scan [RC] ASDIRECTED 09/04/20 14:34 Urinary Catheter Assessment [RC] ASDIRECTED 09/04/20 14:45 Insert Sykes Catheter [Insert Urinary Catheter] [OM.PC] Q24H
== END 2020-09-04 16:45 | disposition home or self-care (01) ==
LOC: JD.ED 14:03
DX: R33.9 Retention of urine, unspecified (principal); N31.9 Neuromuscular dysfunction of bladder, unspecified; I13.0 Hypertensive heart and chronic kidney disease with heart failure and stage 1 through stage 4 chronic kidney disease, or unspecified chronic kidney disease; E11.22 Type 2 diabetes mellitus with diabetic chronic kidney disease; N18.30 Chronic kidney disease, stage 3 unspecified; I50.9 Heart failure, unspecified; I25.119 Atherosclerotic heart disease of native coronary artery with unspecified angina pectoris; E78.00 Pure hypercholesterolemia, unspecified; J44.9 Chronic obstructive pulmonary disease, unspecified; M10.9 Gout, unspecified; E11.40 Type 2 diabetes mellitus with diabetic neuropathy, unspecified; E66.9 Obesity, unspecified; Z68.28 Body mass index [BMI] 28.0-28.9, adult; Z79.01 Long term (current) use of anticoagulants; Z88.0 Allergy status to penicillin; Z91.040 Latex allergy status; Z91.018 Allergy to other foods; Z79.82 Long term (current) use of aspirin; Z79.899 Other long term (current) drug therapy
CPT/HCPCS: 36415; 51702; 80053; 81001; 85025; 99283; 99284-25

== ENCOUNTER 2020-09-17 10:02 | Emergency (ER) | payer MEDICARE, MEDICAID ==
[2020-09-17 10:32] VITALS: BP 140/61; PULSE 49
--- NOTE | 2020-09-17 12:12 | EDM.PDOC ---
ED HPI GENERAL MEDICAL PROBLEM - General Chief Complaint: Genitourinary Problem Stated Complaint: UNABLE TO URINATE Time Seen by Provider: 09/17/20 10:28 Source of Information: Reports: Patient, Family History Limitations: Reports: No Limitations - History of Present Illness INITIAL COMMENTS - FREE TEXT/NARRATIVE: The patient presents because she cannot urinate. She was seen here about 2 weeks ago and a sykes cath needed to be put in. She saw Dr Robins yesterday and he removed it. She is felt to have neurogenic bladder. Today she cannot urinate. She also has some dysuria. She has no fever, chills, cough, chest pain, shortness of breath or abdominal pain. Onset: Gradual Duration: Day(s): (1) Severity: Mild Improves with: Reports: None Worsens with: Reports: None Associated Symptoms: Reports: No Other Symptoms - Related Data Allergies Allergy/AdvReac Type Severity Reaction Status Date / Time Penicillins Allergy Severe Swelling Verified 09/17/20 10:29 latex Allergy Intermediate Rash Verified 09/17/20 10:29 pineapple Allergy Intermediate Rash Verified 09/17/20 10:29 Home Meds: Home Meds Albuterol/Ipratropium [DuoNeb 3.0-0.5 MG/3 ML] 3 ml INH BID PRN 10/16/18 [History] Aspirin 81 mg PO DAILY 10/16/18 [History] Dicyclomine [Bentyl] 20 mg PO QID 10/16/18 [History] Furosemide 40 mg PO DAILY 10/16/18 [History] Nitroglycerin 0.4 mg PO Q5M PRN MDD 3 doses 10/16/18 [History] Pantoprazole [ProTONIX] 40 mg PO DAILY 10/16/18 [History] Potassium Chloride 20 meq PO DAILY 10/16/18 [History] Sertraline [Zoloft] 50 mg PO BEDTIME 10/16/18 [History] allopurinoL [Zyloprim] 300 mg PO DAILY 10/16/18 [History] Albuterol [Ventolin HFA] 2 puff INH BID PRN 11/20/19 [History] Docusate Sodium [Colace] 100 mg PO BID 11/20/19 [History] Rosuvastatin Calcium [Crestor] 40 mg PO DAILY 11/20/19 [History] lisinopriL [Lisinopril] 20 mg PO DAILY 11/20/19 [History] Warfarin [Coumadin] 2.5 mg PO MOWEFR 02/22/20 [History] Warfarin [Coumadin] 5 mg PO SUTUTHSA 02/22/20 [History] Cholecalciferol (Vitamin D3) [Vitamin D3] 25 mcg PO DAILY 04/14/20 [History] Fluticasone Propionate [Flovent HFA 220 MCG] 1 puff PO BID 04/14/20 [History] Ascorbic Acid [Vitamin C] 250 mg PO DAILY 08/31/20 [History] Cefdinir [Omnicef] 300 mg PO BID 7 Days #14 cap 08/31/20 [Rx] Ferrous Sulfate 325 mg PO MOWEFR 08/31/20 [History] Mometasone Furoate [Nasonex [place]] 1 spray CONRAD BID 08/31/20 [History] Olopatadine HCl [Pataday] 1 drop EYEBOTH BID 08/31/20 [History] polyethylene glycoL 3350 [MiraLAX] 1 pkg PO DAILY 08/31/20 [History] cephALEXin [Keflex] 500 mg PO BID #10 cap 09/17/20 [Rx] Past Medical History HEENT History: Reports: Cataract, Impaired Vision, Other (See Below) Other HEENT History: wears eyeglasses Cardiovascular History: Reports: Angina, Arrhythmia, Blood Clots/VTE/DVT, CAD, Heart Failure, High Cholesterol, Hypertension, Stents Other Cardiovascular History: carotid artery disease, ventricular bigeminy, bradycardia, hypotension Respiratory History: Reports: Asthma, COPD, Pneumonia, Recurrent, Other (See Below) Other Respiratory History: used to wear O2 at night, but doesn't anymore Gastrointestinal History: Reports: Chronic Constipation, GERD, GI Bleed, Hemorrhoids, Hiatal Hernia, Irritable Bowel Syndrome Genitourinary History: Reports: Chronic Renal Insuffiency Other Genitourinary History: renal disease, CKD III DEPARTMENT CLINICIAN History: Reports: Other DEPARTMENT CLINICIAN History: hysterectomy Musculoskeletal History: Reports: Arthritis, Back Pain, Chronic, Gout, Osteoarthritis, Osteoporosis Other Musculoskeletal History: Left sided sciatica, plantar fascia syndrome Neurological History: Reports: CVA, Neuropathy, Diabetic Other Neuro History: dizziness Psychiatric History: Reports: Anxiety, Depression Endocrine/Metabolic History: Reports: Diabetes, Type II, Obesity/BMI 30+ Hematologic History: Reports: Anemia, Anticoagulation Therapy, Blood Transfusion(s), Iron Deficiency Other Hematologic History: hypercalcemia, hyperkalemia Immunologic History: Reports: None Oncologic (Cancer) History: Reports: None Dermatologic History: Reports: Eczema Other Dermatologic History: eczema - Infectious Disease History Infectious Disease History: Reports: Influenza, RSV - Past Surgical History Head Surgeries/Procedures: Reports: None HEENT Surgical History: Reports: Cataract Surgery Other HEENT Surgeries/Procedures: Pt. has history of cataract surgery. Cardiovascular Surgical History: Reports: Coronary Artery Stent, Percutaneous Transluminal Angioplasty Other Cardiovascular Surgeries/Procedures: Doctors have been keeping an eye on her left and right carotid Respiratory Surgical History: Reports: None GI Surgical History: Reports: Colonoscopy, Hernia Repair/Other, Other (See Below) Other GI Surgeries/Procedures: hemorhoidectomy Female Surgical History: Reports: Hysterectomy Other Female Surgeries/Procedures: Endocrine Surgical History: Reports: None Neurological Surgical History: Reports: None Musculoskeletal Surgical History: Reports: Carpal Tunnel Oncologic Surgical History: Reports: None Social & Family History - Family History Family Medical History: No Pertinent Family History HEENT: Reports: Hearing Impairment Cardiac: Reports: High Cholesterol, Hypertension Respiratory: Reports: Asthma : Reports: Renal Disease/Insufficiency Musculoskeletal: Reports: Arthritis, Back pain, Chronic, Gout Neurological: Reports: Seizure Psychiatric: Reports: Schizophrenia Endocrine/Metabolic: Reports: Diabetes, Type I, Diabetes, type II, Obesity/MBI 30+ Dermatologic: Reports: Eczema Oncologic: Reports: Bone, Lung - Tobacco Use Tobacco Use Status *Q: Never Tobacco User - Caffeine Use Caffeine Use: Reports: Coffee Other Caffeine Use: cup of coffee every morning Caffeine Use Comment: Drinks about 1 cup of coffee and 1-2 cups of iced tea a day. - Recreational Drug Use Recreational Drug Use: No - Living Situation & Occupation Living situation: Reports: , Alone Occupation: Retired ED ROS GENERAL - Review of Systems Review Of Systems: See Below Constitutional: Reports: No Symptoms HEENT: Reports: No Symptoms Respiratory: Reports: No Symptoms Cardiovascular: Reports: No Symptoms Endocrine: Reports: No Symptoms GI/Abdominal: Reports: No Symptoms : Reports: Dysuria, Urinary Retention ED EXAM, RENAL/ - Physical Exam Exam: See Below Exam Limited By: No Limitations General Appearance: Alert, No Apparent Distress Ears: Normal External Exam Nose: Normal Inspection Head: Atraumatic, Normocephalic Neck: Normal Inspection Respiratory/Chest: No Respiratory Distress, Lungs Clear, Normal Breath Sounds Cardiovascular: Regular Rate, Rhythm, No Edema, No Murmur GI/Abdominal: Soft, Non-Tender, No Organomegaly, No Mass Course - Vital Signs Last Recorded V/S: Last Vital Signs Temp 98.6 F 09/17/20 10:25 Pulse 49 L 09/17/20 10:31 Resp 18 09/17/20 10:31 BP 140/61 09/17/20 10:31 Pulse Ox 94 L 09/17/20 10:31 - Orders/Labs/Meds Orders: Active Orders 24 hr Category Date Time Status Urinary Catheter Assessment [RC] ASDIRECTED Care 09/17/20 10:52 Active Urinary Catheter Insertion [Insert Urinary Catheter] [ Care 09/17/20 11:00 Ordered OM.PC] Q24H Labs: Laboratory Tests 09/17/20 09/17/20 09/17/20 Range/Units 10:46 10:56 10:56 WBC 9.24 (3.98-10.04) K/mm3 RBC 4.22 (3.98-5.22) M/mm3 Hgb 13.0 (11.2-15.7) gm/dl Hct 40.4 (34.1-44.9) % MCV 95.7 H (79.4-94.8) fl MCH 30.8 (25.6-32.2) pg MCHC 32.2 (32.2-35.5) g/dl RDW Std Deviation 50.0 H (36.4-46.3) fL Plt Count 234 (182-369) K/mm3 MPV 9.6 (9.4-12.3) fl Neut % (Auto) 62.3 (34.0-71.1) % Lymph % (Auto) 24.9 (19.3-51.7) % Wilkes % (Auto) 10.9 (4.7-12.5) % Eos % (Auto) 1.3 (0.7-5.8) Baso % (Auto) 0.5 (0.1-1.2) % Neut # (Auto) 5.75 (1.56-6.13) K/mm3 Lymph # (Auto) 2.30 (1.18-3.74) K/mm3 Wilkes # (Auto) 1.01 H (0.24-0.36) K/mm3 Eos # (Auto) 0.12 (0.04-0.36) K/mm3 Baso # (Auto) 0.05 (0.01-0.08) K/mm3 Sodium 139 D (136-145) mEq/L Potassium 4.9 (3.5-5.1) mEq/L Chloride 100 (98-107) mEq/L Carbon Dioxide 30 (21-32) mEq/L Anion Gap 13.9 (5-15) BUN 22 H (7-18) mg/dL Creatinine 1.2 H (0.55-1.02) mg/dL Est Cr Clr Drug Dosing 32.83 mL/min Estimated GFR (MDRD) 43 (>60) mL/min BUN/Creatinine Ratio 18.3 H (14-18) Glucose 85 (70-99) mg/dL Calcium 10.6 H (8.5-10.1) mg/dL Total Bilirubin 0.5 (0.2-1.0) mg/dL AST 28 (15-37) U/L ALT 29 (14-59) U/L Alkaline Phosphatase 53 (46-116) U/L Total Protein 7.4 (6.4-8.2) g/dl Albumin 3.2 L (3.4-5.0) g/dl Globulin 4.2 gm/dL Albumin/Globulin Ratio 0.8 L (1-2) Urine Color Light yellow (Yellow) Urine Appearance Clear (Clear) Urine pH 6.5 (5.0-8.0) Ur Specific [place] 1.020 (1.005-1.030) Urine Protein Negative (Negative) Urine Glucose (UA) Negative (Negative) Urine Ketones Negative (Negative) Urine Occult Blood Negative (Negative) Urine Nitrite Negative (Negative) Urine Bilirubin Negative (Negative) Urine Urobilinogen 0.2 (0.2-1.0) Ur Leukocyte Esterase 1+ H (Negative) Urine RBC 0-5 (0-5) /hpf Urine WBC 10-20 H (0-5) /hpf Ur Squamous Epith Cells 0-5 (0-5) /hpf Urine Bacteria Many H (FEW) /hpf Urine Mucus Not seen (FEW) /hpf - Re-Assessments/Exams Free Text/Narrative Re-Assessment/Exam: 09/17/20 12:09 I had my nurse put in a sykes cath. She got over 200mls out. Her CBC looks good. Her creatinine is slightly elevated at 1.2. Her UA shows a UTI. I will leave the floey cath in and start her on some keflex. She is seeing urology in November. Departure - Departure Time of Disposition: 12:15 Disposition: Home, Self-Care 01 Condition: Good Clinical Impression: Urinary retention UTI (urinary tract infection) Qualifiers: Urinary tract infection type: acute cystitis Hematuria presence: without hematuria Qualified Code(s): N30.00 - Acute cystitis without hematuria - Discharge Information *PRESCRIPTION DRUG MONITORING PROGRAM REVIEWED*: Not Applicable *COPY OF PRESCRIPTION DRUG MONITORING REPORT IN PATIENT CHRISTOPHE: Not Applicable Prescriptions: cephALEXin [Keflex] 500 mg PO BID #10 cap Referrals: Jabari Robins MD [Primary Care Provider] - 1 Week Additional Instructions: Take the keflex 2 times per day for 5 days. Keep the sykes cath in. Follow up with urology and Dr Robins. Please return if you are worse. Sepsis Event Note (ED) - Evaluation Sepsis Screening Result: No Definite Risk - Focused Exam Vital Signs: Vital Signs Temp Pulse Resp BP Pulse Ox 09/17/20 10:31 49 L 18 140/61 94 L 09/17/20 10:25 98.6 F 52 L 18 162/83 H 96 - My Orders Last 24 Hours: My Active Orders 09/17/20 10:52 Urinary Catheter Assessment [RC] ASDIRECTED 09/17/20 11:00 Urinary Catheter Insertion [Insert Urinary Catheter] [OM.PC] Q24H - Assessment/Plan Last 24 Hours: My Active Orders 09/17/20 10:52 Urinary Catheter Assessment [RC] ASDIRECTED 09/17/20 11:00 Urinary Catheter Insertion [Insert Urinary Catheter] [OM.PC] Q24H
== END 2020-09-17 12:32 | disposition home or self-care (01) ==
LOC: JD.ED 10:02
DX: R33.9 Retention of urine, unspecified (principal); N30.00 Acute cystitis without hematuria; J44.9 Chronic obstructive pulmonary disease, unspecified; K21.9 Gastro-esophageal reflux disease without esophagitis; E66.9 Obesity, unspecified; I13.10 Hypertensive heart and chronic kidney disease without heart failure, with stage 1 through stage 4 chronic kidney disease, or unspecified chronic kidney disease; E11.22 Type 2 diabetes mellitus with diabetic chronic kidney disease; N18.30 Chronic kidney disease, stage 3 unspecified; Z79.01 Long term (current) use of anticoagulants; Z68.30 Body mass index [BMI] 30.0-30.9, adult; Z88.0 Allergy status to penicillin; Z91.040 Latex allergy status; Z91.018 Allergy to other foods; Z79.82 Long term (current) use of aspirin
CPT/HCPCS: 36415; 51702; 80053; 81001; 85025; 99283-25; 99284

== ENCOUNTER 2020-10-05 17:55 | Emergency (ER) | payer MEDICARE, MEDICAID ==
[2020-10-05] MEDS ORDERED: Ondansetron 4 MG/2 ML SDV IVPUSH ONE (18:45)
--- NOTE | 2020-10-05 18:47 | EDM.PDOC ---
ED HPI GENERAL MEDICAL PROBLEM - General Chief Complaint: Fever Stated Complaint: FEVER POST OP SURG. Time Seen by Provider: 10/05/20 18:17 Source of Information: Reports: Patient, RN Notes Reviewed History Limitations: Reports: No Limitations - History of Present Illness INITIAL COMMENTS - FREE TEXT/NARRATIVE: Patient is a 80-year-old female who presents to the ER for the evaluation of her fever after hemorrhoidectomy. Patient states that she had a hemorrhoidectomy, performed by Dr. Garza at [facility] in [place] on Saturday, October 03, 2020. States that the procedure went well, and she was discharged home without any complications. She resides at [facility]. Patient was found to have a fever, as high as 100.8 F at [facility] today, she was given 1000 mg of Tylenol for this, and sent to the ER for evaluation. Patient is complaining of some rectal pain, looser stools, bloody stools, and some other slight generalized abdominal pain. She feels slightly nauseous as well but has not had any vomiting, she has had some diarrhea type stools as well. Patient states that she has also developed a cough, and has been coughing up some green-colored sputum. Temperature at the time of triage is 100.6 F rectally, and this again was after 1000 mg Tylenol was given. Patient has been taking hydrocodone for pain management, she thinks her last dose was at around 2 PM. Patient still does have a Browning in place as she does have urinary retention issues. She notes that the Browning has been draining appropriately. Primary care provider is Dr. Robins. Rectal Pain Score (Numeric/FACES): 8 - Related Data Allergies Allergy/AdvReac Type Severity Reaction Status Date / Time Penicillins Allergy Severe Swelling Verified 10/05/20 18:17 latex Allergy Intermediate Rash Verified 10/05/20 18:17 pineapple Allergy Intermediate Rash Verified 10/05/20 18:17 Home Meds: Home Meds Albuterol/Ipratropium [DuoNeb 3.0-0.5 MG/3 ML] 3 ml INH BID PRN 10/16/18 [History] Aspirin 81 mg PO DAILY 10/16/18 [History] Dicyclomine [Bentyl] 20 mg PO QID 10/16/18 [History] Furosemide 40 mg PO DAILY 10/16/18 [History] Nitroglycerin 0.4 mg PO Q5M PRN MDD 3 doses 10/16/18 [History] Pantoprazole [ProTONIX] 40 mg PO DAILY 10/16/18 [History] Potassium Chloride 20 meq PO DAILY 10/16/18 [History] Sertraline [Zoloft] 50 mg PO BEDTIME 10/16/18 [History] allopurinoL [Zyloprim] 300 mg PO DAILY 10/16/18 [History] Albuterol [Ventolin HFA] 2 puff INH BID PRN 11/20/19 [History] Docusate Sodium [Colace] 100 mg PO BID 11/20/19 [History] Rosuvastatin Calcium [Crestor] 40 mg PO DAILY 11/20/19 [History] lisinopriL [Lisinopril] 20 mg PO DAILY 11/20/19 [History] Warfarin [Coumadin] 2.5 mg PO MOWEFR 02/22/20 [History] Warfarin [Coumadin] 5 mg PO SUTUTHSA 02/22/20 [History] Cholecalciferol (Vitamin D3) [Vitamin D3] 25 mcg PO DAILY 04/14/20 [History] Fluticasone Propionate [Flovent HFA 220 MCG] 1 puff PO BID 04/14/20 [History] Ascorbic Acid [Vitamin C] 250 mg PO DAILY 08/31/20 [History] Cefdinir [Omnicef] 300 mg PO BID 7 Days #14 cap 08/31/20 [Rx] Ferrous Sulfate 325 mg PO MOWEFR 08/31/20 [History] Mometasone Furoate [Nasonex [place]] 1 spray CONRAD BID 08/31/20 [History] Olopatadine HCl [Pataday] 1 drop EYEBOTH BID 08/31/20 [History] polyethylene glycoL 3350 [MiraLAX] 1 pkg PO DAILY 08/31/20 [History] cephALEXin [Keflex] 500 mg PO BID #10 cap 09/17/20 [Rx] levoFLOXacin [Levofloxacin] 500 mg PO DAILY 7 Days #6 tablet 10/05/20 [Rx] metroNIDAZOLE [Flagyl] 500 mg PO TID 7 Days #20 tab 10/05/20 [Rx] Past Medical History HEENT History: Reports: Cataract, Impaired Vision, Other (See Below) Other HEENT History: wears eyeglasses Cardiovascular History: Reports: Angina, Arrhythmia, Blood Clots/VTE/DVT, CAD, Heart Failure, High Cholesterol, Hypertension, Stents Other Cardiovascular History: carotid artery disease, ventricular bigeminy, bradycardia, hypotension Respiratory History: Reports: Asthma, COPD, Pneumonia, Recurrent, Other (See Below) Other Respiratory History: used to wear O2 at night, but doesn't anymore Gastrointestinal History: Reports: Chronic Constipation, GERD, GI Bleed, Hemorrhoids, Hiatal Hernia, Irritable Bowel Syndrome Genitourinary History: Reports: Chronic Renal Insuffiency Other Genitourinary History: renal disease, CKD III 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 Musculoskeletal History: Reports: Arthritis, Back Pain, Chronic, Gout, Osteoarthritis, Osteoporosis Other Musculoskeletal History: Left sided sciatica, plantar fascia syndrome Neurological History: Reports: CVA, Neuropathy, Diabetic Other Neuro History: dizziness Psychiatric History: Reports: Anxiety, Depression Endocrine/Metabolic History: Reports: Diabetes, Type II, Obesity/BMI 30+ Hematologic History: Reports: Anemia, Anticoagulation Therapy, Blood Transfusion(s), Iron Deficiency Other Hematologic History: hypercalcemia, hyperkalemia Immunologic History: Reports: None Oncologic (Cancer) History: Reports: None Dermatologic History: Reports: Eczema Other Dermatologic History: eczema - Infectious Disease History Infectious Disease History: Reports: Influenza, RSV - Past Surgical History HEENT Surgical History: Reports: Cataract Surgery Other HEENT Surgeries/Procedures: Pt. has history of cataract surgery. Cardiovascular Surgical History: Reports: Coronary Artery Stent, Percutaneous Transluminal Angioplasty Other Cardiovascular Surgeries/Procedures: Doctors have been keeping an eye on her left and right carotid GI Surgical History: Reports: Colonoscopy, Hernia Repair/Other, Other (See Below) Other GI Surgeries/Procedures: hemorrhoid banding, hemorrhoidectomy Female Surgical History: Reports: Hysterectomy Other Female Surgeries/Procedures: Musculoskeletal Surgical History: Reports: Carpal Tunnel Social & Family History - Family History Family Medical History: No Pertinent Family History HEENT: Reports: Hearing Impairment Cardiac: Reports: High Cholesterol, Hypertension Respiratory: Reports: Asthma : Reports: Renal Disease/Insufficiency Musculoskeletal: Reports: Arthritis, Back pain, Chronic, Gout Neurological: Reports: Seizure Psychiatric: Reports: Schizophrenia Endocrine/Metabolic: Reports: Diabetes, Type I, Diabetes, type II, Obesity/MBI 30+ Dermatologic: Reports: Eczema Oncologic: Reports: Bone, Lung - Tobacco Use Tobacco Use Status *Q: Never Tobacco User Second Hand Smoke Exposure: No - Caffeine Use Caffeine Use: Reports: Coffee Other Caffeine Use: cup of coffee every morning Caffeine Use Comment: Drinks about 1 cup of coffee and 1-2 cups of iced tea a day. - Recreational Drug Use Recreational Drug Use: No - Living Situation & Occupation Living situation: Reports: , Alone Occupation: Retired ED ROS GENERAL - Review of Systems Review Of Systems: Comprehensive ROS is negative, except as noted in HPI. ED EXAM, SEPSIS - Physical Exam Exam: See Below Exam Limited By: No Limitations General Appearance: Alert, WD/WN, No Apparent Distress Respiratory/Chest: No Respiratory Distress, Lungs Clear, Normal Breath Sounds, No Accessory Muscle Use, Chest Non-Tender Cardiovascular: Normal Peripheral Pulses, Regular Rate, Rhythm, No Edema GI/Abdominal Exam: Normal Bowel Sounds, Soft, Tender (generalized but seems worse over the epigastrium) Rectal (Female) Exam: Normal Exam, Normal Rectal Tone, Hemorrhoids. No: Perirectal Abscess Extremities: Normal Inspection, Normal Capillary Refill Neurological: Alert, Oriented, Normal Cognition, No Motor/Sensory Deficits Psychiatric: Normal Affect, Normal Mood Skin: Warm, Dry, Intact, Normal Color, No Rash Course - Vital Signs Last Recorded V/S: Last Vital Signs Temp 98.8 F 10/05/20 18:15 Pulse 72 10/05/20 18:15 Resp 20 10/05/20 18:15 BP 137/66 10/05/20 18:15 Pulse Ox 93 L 10/05/20 18:15 - Orders/Labs/Meds Orders: Active Orders 24 hr Category Date Time Status Peripheral IV Care [RC] . DIRECTED Care 10/05/20 18:45 Active BLOOD CULTURE [MREF] Stat Lab 10/05/20 18:45 Received BLOOD CULTURE [MREF] Stat Lab 10/05/20 19:00 Received Sodium Chloride 0.9% [Normal Saline] 1,000 ml Med 10/05/20 19:45 Active IV ONETIME Sodium Chloride 0.9% [Normal Saline] 100 ml Med 10/05/20 20:00 Active IV ASDIRECTED Sodium Chloride 0.9% [Saline Flush] Med 10/05/20 18:44 Active 10 ml FLUSH ASDIRECTED PRN Blood Culture x2 Reflex Set [OM.PC] Stat Oth 10/05/20 18:42 Ordered Peripheral IV Insertion Adult [OM.PC] Routine Oth 10/05/20 18:44 Ordered Medication Orders Sodium Chloride (Normal Saline) 1,000 mls @ 150 mls/hr IV ONETIME ONE Stop: 10/06/20 02:24 Last Admin: 10/05/20 20:40 Dose: 150 mls/hr Documented by: ADRIEN Sodium Chloride (Normal Saline) 100 mls @ 50 mls/hr IV ASDIRECTED LUCI Last Admin: 10/05/20 20:18 Dose: 80 mls/hr Documented by: DEANDRE Sodium Chloride (Sodium Chloride 0.9% 10 Ml Syringe) 10 ml FLUSH ASDIRECTED PRN PRN Reason: Keep Vein Open Last Admin: 10/05/20 20:17 Dose: 10 ml Documented by: Admin: 10/05/20 19:13 Dose: 10 ml Documented by: ADRIEN Labs: Laboratory Tests 10/05/20 10/05/20 10/05/20 Range/Units 18:45 18:45 18:45 WBC 6.86 (3.98-10.04) K/mm3 RBC 3.46 L (3.98-5.22) M/mm3 Hgb 10.7 L D (11.2-15.7) gm/dl Hct 34.9 (34.1-44.9) % MCV 100.9 H D (79.4-94.8) fl MCH 30.9 (25.6-32.2) pg MCHC 30.7 L (32.2-35.5) g/dl RDW Std Deviation 55.2 H (36.4-46.3) fL Plt Count 155 L D (182-369) K/mm3 MPV 10.2 (9.4-12.3) fl Neut % (Auto) 66.8 (34.0-71.1) % Lymph % (Auto) 18.5 L (19.3-51.7) % [place] % (Auto) 13.1 H (4.7-12.5) % Eos % (Auto) 1.2 (0.7-5.8) Baso % (Auto) 0.1 (0.1-1.2) % Neut # (Auto) 4.58 (1.56-6.13) K/mm3 Lymph # (Auto) 1.27 (1.18-3.74) K/mm3 [place] # (Auto) 0.90 H (0.24-0.36) K/mm3 Eos # (Auto) 0.08 (0.04-0.36) K/mm3 Baso # (Auto) 0.01 (0.01-0.08) K/mm3 PT 22.4 H (9.7-12.0) SECONDS INR 2.12 APTT 42.2 H (21.7-31.4) SECONDS Sodium (136-145) mEq/L Potassium (3.5-5.1) mEq/L Chloride (98-107) mEq/L Carbon Dioxide (21-32) mEq/L Anion Gap (5-15) BUN (7-18) mg/dL Creatinine (0.55-1.02) mg/dL Est Cr Clr Drug Dosing mL/min Estimated GFR (MDRD) (>60) mL/min BUN/Creatinine Ratio (14-18) Glucose (70-99) mg/dL Lactic Acid (0.4-2.0) mmol/L Calcium (8.5-10.1) mg/dL Magnesium (1.8-2.4) mg/dL Total Bilirubin (0.2-1.0) mg/dL AST (15-37) U/L ALT (14-59) U/L Alkaline Phosphatase (46-116) U/L C-Reactive Protein 4.4 H* (<1.0) mg/dL Total Protein (6.4-8.2) g/dl Albumin (3.4-5.0) g/dl Globulin gm/dL Albumin/Globulin Ratio (1-2) SARS-CoV-2 RNA (AMINA) (NEGATIVE) 10/05/20 10/05/20 10/05/20 Range/Units 18:45 18:45 19:15 WBC (3.98-10.04) K/mm3 RBC (3.98-5.22) M/mm3 Hgb (11.2-15.7) gm/dl Hct (34.1-44.9) % MCV (79.4-94.8) fl MCH (25.6-32.2) pg MCHC (32.2-35.5) g/dl RDW Std Deviation (36.4-46.3) fL Plt Count (182-369) K/mm3 MPV (9.4-12.3) fl Neut % (Auto) (34.0-71.1) % Lymph % (Auto) (19.3-51.7) % [place] % (Auto) (4.7-12.5) % Eos % (Auto) (0.7-5.8) Baso % (Auto) (0.1-1.2) % Neut # (Auto) (1.56-6.13) K/mm3 Lymph # (Auto) (1.18-3.74) K/mm3 [place] # (Auto) (0.24-0.36) K/mm3 Eos # (Auto) (0.04-0.36) K/mm3 Baso # (Auto) (0.01-0.08) K/mm3 PT (9.7-12.0) SECONDS INR APTT (21.7-31.4) SECONDS Sodium 137 (136-145) mEq/L Potassium 4.5 (3.5-5.1) mEq/L Chloride 104 (98-107) mEq/L Carbon Dioxide 28 (21-32) mEq/L Anion Gap 9.5 (5-15) BUN 19 H (7-18) mg/dL Creatinine 1.6 H (0.55-1.02) mg/dL Est Cr Clr Drug Dosing 25.65 mL/min Estimated GFR (MDRD) 31 (>60) mL/min BUN/Creatinine Ratio 11.9 L (14-18) Glucose 278 H (70-99) mg/dL Lactic Acid 1.4 (0.4-2.0) mmol/L Calcium 8.9 D (8.5-10.1) mg/dL Magnesium 1.7 L (1.8-2.4) mg/dL Total Bilirubin 0.3 (0.2-1.0) mg/dL AST 60 H (15-37) U/L ALT 54 (14-59) U/L Alkaline Phosphatase 52 (46-116) U/L C-Reactive Protein (<1.0) mg/dL Total Protein 6.0 L (6.4-8.2) g/dl Albumin 2.5 L (3.4-5.0) g/dl Globulin 3.5 gm/dL Albumin/Globulin Ratio 0.7 L (1-2) SARS-CoV-2 RNA (AMIAN) Negative (NEGATIVE) Meds: Medications Generic Name Dose Route Start Last Admin Trade Name Kjq PRN Reason Stop Dose Admin Sodium Chloride 1,000 mls @ 150 mls/hr 10/05/20 19:45 10/05/20 20:40 Normal Saline IV 10/06/20 02:24 150 mls/hr ONETIME ONE Administration Sodium Chloride 100 mls @ 50 mls/hr 10/05/20 20:00 10/05/20 20:18 Normal Saline IV 80 mls/hr ASDIRECTED LUCI Administration Sodium Chloride 10 ml 10/05/20 18:44 10/05/20 20:17 Sodium Chloride 0.9% 10 Ml Syringe FLUSH 10 ml ASDIRECTED PRN Administration Keep Vein Open Discontinued Medications Generic Name Dose Route Start Last Admin Trade Name Kjq PRN Reason Stop Dose Admin Hydromorphone HCl 0.5 mg 10/05/20 20:37 10/05/20 20:40 Hydromorphone 0.5 Mg/0.5 Ml Syringe IVPUSH 10/05/20 20:38 0.5 mg ONETIME ONE Administration Iopamidol 100 ml 10/05/20 19:52 10/05/20 20:17 Iopamidol 612 Mg/Ml 100 Ml Bottle IVPUSH 10/05/20 19:53 100 ml ONETIME ONE Administration Levofloxacin 500 mg 10/05/20 21:05 Levofloxacin 500 Mg Tab PO 10/05/20 21:06 ONETIME ONE Metronidazole 500 mg 10/05/20 21:07 Metronidazole 500 Mg Tab PO 10/05/20 21:08 ONETIME ONE Ondansetron HCl 4 mg 10/05/20 18:45 10/05/20 19:13 Ondansetron 4 Mg/2 Ml Sdv IVPUSH 10/05/20 18:46 4 mg ONETIME ONE Administration Sodium Chloride 10 ml 10/05/20 19:52 Sodium Chloride 0.9% 10 Ml Sdv FLUSH 10/05/20 19:53 ONETIME ONE - Re-Assessments/Exams Free Text/Narrative Re-Assessment/Exam: 10/05/20 18:53 Patient presents with a fever postop 2 days s/p hemorrhoidectomy. We will go ahead and get an IV established, get labs, chest x-ray due to her stating that she thought she had some colored sputum she was coughing up, we will get a Covid swab for ongoing management, abdomen pelvis CT with IV contrast only due to the patient feeling nauseous. 10/05/20 20:00 Patient's labs have resulted for the most part, white cell count is within normal limits, hemoglobin is 10.7, coagulation studies demonstrate a PT elevated at 22.4, PTT elevated at 42.2 and an INR at 2.12. Metabolic panel demonstrates a creatinine elevated at 1.6, GFR decreased at 31, magnesium low at 1.7, glucose elevated at 278, and CRP elevated at 4.4. We'll go ahead and give her some IV fluids at 150 mils per hour, and perform CT with IV contrast for ongoing management. Chest x-ray has been yet to be performed as well. 10/05/20 21:[address] has been performed, and read as possible mild diverticulitis within the sigmoid colon. No other major abnormalities were identified as far as CT results are concerned. Due to the patient's fever, abdomen pain, and CT results, we will go ahead and treat her for diverticulitis with levofloxacin and Flagyl as she has a penicillin allergy. Departure - Departure Time of Disposition: 21:09 Disposition: Home, Self-Care 01 Condition: Good Clinical Impression: Diverticulitis - Discharge Information *PRESCRIPTION DRUG MONITORING PROGRAM REVIEWED*: No *COPY OF PRESCRIPTION DRUG MONITORING REPORT IN PATIENT CHRISTOPHE: No Prescriptions: metroNIDAZOLE [Flagyl] 500 mg PO TID 7 Days #20 tab levoFLOXacin [Levofloxacin] 500 mg PO DAILY 7 Days #6 tablet Instructions: Diverticulitis, [id number] Referrals: Jabari Robins MD [Primary Care Provider] - Forms: ED Department Discharge Additional Instructions: You were evaluated in the ER today for your fever and abdomen/rectal discomfort. Laboratory evaluation demonstrated a white count that was within normal limits, a CRP that was mildly elevated, and some slightly declining kidney function- which is thought to be likely due to dehydration; the IV fluids should help with this. A CT has been performed, and you do have a mild case of diverticulitis, which is an inflammation of the colon, that will need a course of antibiotics. This will be 2 different antibiotics, 1 will be levofloxacin, 1 tablet daily, and then Flagyl or metronidazole 1 tablet 3 times a day while awake. This will be for 1 week. This medication [facility]. You may continue taking your medications as previously prescribed by your regular provider/surgeon. Recommend you follow-up with Dr. Robins, sometime this week, to make sure that your symptoms are improving as expected. You may continue to use 1000 mg Tylenol every 6 hours as needed for ongoing fever management. Do not exceed 4000 mg Tylenol in a 24-hour time span. Do not hesitate to return to the ER at any time if symptoms change or worsen. Sepsis Event Note (ED) - Evaluation Sepsis Screening Result: No Definite Risk - Focused Exam Vital Signs: Vital Signs Temp Pulse Resp BP Pulse Ox 10/05/20 18:15 98.8 F 72 20 137/66 93 L - My Orders Last 24 Hours: My Active Orders 10/05/20 18:42 Blood Culture x2 Reflex Set [OM.PC] Stat 10/05/20 18:44 Sodium Chloride 0.9% [Saline Flush] 10 ml FLUSH ASDIRECTED PRN Peripheral IV Insertion Adult [OM.PC] Routine 10/05/20 18:45 Peripheral IV Care [RC] . DIRECTED BLOOD CULTURE [MREF] Stat 10/05/20 19:00 BLOOD CULTURE [MREF] Stat 10/05/20 19:45 Sodium Chloride 0.9% [Normal Saline] 1,000 ml IV ONETIME 10/05/20 20:00 Sodium Chloride 0.9% [Normal Saline] 100 ml IV ASDIRECTED - Assessment/Plan Last 24 Hours: My Active Orders 10/05/20 18:42 Blood Culture x2 Reflex Set [OM.PC] Stat 10/05/20 18:44 Sodium Chloride 0.9% [Saline Flush] 10 ml FLUSH ASDIRECTED PRN Peripheral IV Insertion Adult [OM.PC] Routine 10/05/20 18:45 Peripheral IV Care [RC] . DIRECTED BLOOD CULTURE [MREF] Stat 10/05/20 19:00 BLOOD CULTURE [MREF] Stat 10/05/20 19:45 Sodium Chloride 0.9% [Normal Saline] 1,000 ml IV ONETIME 10/05/20 20:00 Sodium Chloride 0.9% [Normal Saline] 100 ml IV ASDIRECTED
[2020-10-05] MEDS: Sodium Chloride 0.9% 10 ML Syringe FLUSH PRN ×2 (19:13→20:17)
[2020-10-05] MEDS ORDERED: Sodium Chloride 0.9% 1,000 ML IV ONE (19:45)
[2020-10-05] MEDS ORDERED: Iopamidol 612 MG/ML 100 ML Bottle IVPUSH ONE (19:52)
[2020-10-05] MEDS ORDERED: Sodium Chloride 0.9% 10 ML SDV FLUSH ONE (19:52)
[2020-10-05] MEDS ORDERED: Sodium Chloride 0.9% 100 ML IV SCH (20:00)
[2020-10-05] MEDS ORDERED: HYDROmorphone 0.5 MG/0.5 ML Syringe IVPUSH ONE (20:37)
--- NOTE | 2020-10-05 20:43 | CR ---
Chest: PA and lateral views of the chest were obtained. Comparison: Prior chest x-ray of 04/14/20. Heart is enlarged. Moderately large hiatal hernia is seen. No definite acute parenchymal change is seen. Atherosclerotic calcification is noted within the thoracic aorta. Slight compression deformity is seen within the lower thoracic spine which is age indeterminate. No other acute osseous finding is seen. Impression: 1. Slight cardiomegaly with moderately large hiatal hernia. 2. Mild compression deformity within the lower thoracic spine which is age indeterminate. 3. Nothing acute is otherwise seen. Diagnostic code #2
--- NOTE | 2020-10-05 20:50 | CT ---
CT abdomen and pelvis Technique: Multiple axial sections were obtained from above the dome of the diaphragm inferiorly through the pubic symphysis. Intravenous contrast was utilized. No oral contrast has been given. Delayed images were obtained through the bladder. Comparison: Prior CT abdomen and pelvis exam of 02/16/20. Findings: Small portion of the visualized lung bases show nothing acute. Moderately large hiatal hernia is noted. Liver contains no focal parenchymal abnormality. Gallbladder wall calcification is seen which is stable. No definite calcified gallstones are seen. Spleen size is normal. Adrenal glands show no nodule. Kidneys show symmetric contrast enhancement without hydronephrosis. Slight vascular calcification is seen within both kidneys. Pancreas is somewhat atrophied but shows no focal abnormality. Aorta shows diffuse atherosclerotic change. Distal thoracic aorta is slightly prominent at 3.8 cm which is stable. Atherosclerotic calcification is seen within the abdominal aorta and iliac vessels. No retroperitoneal adenopathy is seen. No mesenteric abnormalities are seen. There are areas of increased density being seen within the subcutaneous fat within the anterior abdomen presumably due to previous injections. Very minimal fluid is seen within the pelvis. Browning catheter is noted within the bladder. Scattered diverticuli are seen within the sigmoid colon. Slight inflammatory change is seen around a sigmoid diverticulum most likely due to mild diverticulitis. Appendix is seen which is normal in size. Delayed images shows contrast within the ureters and bladder. Bone window settings were reviewed which show scattered degenerative change within the spine. Spondylitic defects are seen at L5-S1 with minimal spondylolisthesis of approximately 3.5 degrees. Vacuum phenomena is seen within the L2-3, L3-4 and L5-S1 discs. Mild anterior wedge deformity is seen within T11 which is stable. No acute osseous abnormality is appreciated. Impression: 1. Numerous findings as noted above which are stable from prior CT exam. 2. Findings suspicious for mild diverticulitis within the sigmoid colon. Diagnostic code #3
[2020-10-05] MEDS ORDERED: Levofloxacin 500 MG Tab PO ONE (21:05)
[2020-10-05] MEDS ORDERED: metroNIDAZOLE 500 MG Tab PO ONE (21:07)
[2020-10-05 21:55] VITALS: BP 131/65; PULSE 60
== END 2020-10-05 21:55 | disposition home or self-care (01) ==
LOC: JD.ED 17:55
DX: K57.32 Diverticulitis of large intestine without perforation or abscess without bleeding (principal); I25.10 Atherosclerotic heart disease of native coronary artery without angina pectoris; E78.00 Pure hypercholesterolemia, unspecified; J44.9 Chronic obstructive pulmonary disease, unspecified; K21.9 Gastro-esophageal reflux disease without esophagitis; I13.0 Hypertensive heart and chronic kidney disease with heart failure and stage 1 through stage 4 chronic kidney disease, or unspecified chronic kidney disease; E11.22 Type 2 diabetes mellitus with diabetic chronic kidney disease; N18.30 Chronic kidney disease, stage 3 unspecified; M10.9 Gout, unspecified; E11.40 Type 2 diabetes mellitus with diabetic neuropathy, unspecified; E66.9 Obesity, unspecified; Z88.0 Allergy status to penicillin; Z91.018 Allergy to other foods; Z91.040 Latex allergy status; Z79.82 Long term (current) use of aspirin; Z98.890 Other specified postprocedural states; Z79.899 Other long term (current) drug therapy; Z20.822 Contact with and (suspected) exposure to COVID-19
CPT/HCPCS: 36415; 71046; 74177; 80053; 83605; 83735; 85025; 85610; 85730; 86140; 87040; 96374; 96375; 99284; A9270; J1170; J2405; J7030; Q9967; U0002

== ENCOUNTER 2020-11-23 12:19 | Emergency (ER) | payer MEDICARE, MEDICAID ==
[2020-11-23 13:07] VITALS: BP 180/92; PULSE 64
--- NOTE | 2020-11-23 14:13 | EDM.PDOC ---
ED HPI GENERAL MEDICAL PROBLEM - General Chief Complaint: Genitourinary Problem Time Seen by Provider: 11/23/20 13:04 Source of Information: Reports: Patient, RN Notes Reviewed History Limitations: Reports: No Limitations - History of Present Illness INITIAL COMMENTS - FREE TEXT/NARRATIVE: Patient is a 80-year-old female presenting to the emergency department from [facility] with request of having a Browning catheter placed. She reports catheter was taken out on November 21 and she has been having dribbling. Denies any burning with nation, flank pain, fever, or chills. Patient had cat heter placed previously for urinary retention and reports that it was in place for approximately 3 months. Lower Abdomen Pain Score (Numeric/FACES): 3 - Related Data Allergies Allergy/AdvReac Type Severity Reaction Status Date / Time Penicillins Allergy Severe Swelling Verified 11/23/20 13:07 latex Allergy Intermediate Rash Verified 11/23/20 13:07 pineapple Allergy Intermediate Rash Verified 11/23/20 13:07 Home Meds: Home Meds Albuterol/Ipratropium [DuoNeb 3.0-0.5 MG/3 ML] 3 ml INH BID PRN 10/16/18 [History] Aspirin 81 mg PO DAILY 10/16/18 [History] Dicyclomine [Bentyl] 20 mg PO QID 10/16/18 [History] Furosemide 40 mg PO DAILY 10/16/18 [History] Nitroglycerin 0.4 mg PO Q5M PRN MDD 3 doses 10/16/18 [History] Pantoprazole [ProTONIX] 40 mg PO DAILY 10/16/18 [History] Potassium Chloride 20 meq PO DAILY 10/16/18 [History] Sertraline [Zoloft] 50 mg PO BEDTIME 10/16/18 [History] allopurinoL [Zyloprim] 300 mg PO DAILY 10/16/18 [History] Albuterol [Ventolin HFA] 2 puff INH BID PRN 11/20/19 [History] Docusate Sodium [Colace] 100 mg PO BID 11/20/19 [History] Rosuvastatin Calcium [Crestor] 40 mg PO DAILY 11/20/19 [History] lisinopriL [Lisinopril] 20 mg PO DAILY 11/20/19 [History] Warfarin [Coumadin] 2.5 mg PO MOWEFR 02/22/20 [History] Warfarin [Coumadin] 5 mg PO SUTUTHSA 02/22/20 [History] Cholecalciferol (Vitamin D3) [Vitamin D3] 25 mcg PO DAILY 04/14/20 [History] Fluticasone Propionate [Flovent HFA 220 MCG] 1 puff PO BID 04/14/20 [History] Ascorbic Acid [Vitamin C] 250 mg PO DAILY 08/31/20 [History] Cefdinir [Omnicef] 300 mg PO BID 7 Days #14 cap 08/31/20 [Rx] Ferrous Sulfate 325 mg PO MOWEFR 08/31/20 [History] Mometasone Furoate [Nasonex Lankin] 1 spray CONRAD BID 08/31/20 [History] Olopatadine HCl [Pataday] 1 drop EYEBOTH BID 08/31/20 [History] polyethylene glycoL 3350 [MiraLAX] 1 pkg PO DAILY 08/31/20 [History] cephALEXin [Keflex] 500 mg PO BID #10 cap 09/17/20 [Rx] levoFLOXacin [Levofloxacin] 500 mg PO DAILY 7 Days #6 tablet 10/05/20 [Rx] metroNIDAZOLE [Flagyl] 500 mg PO TID 7 Days #20 tab 10/05/20 [Rx] Past Medical History HEENT History: Reports: Cataract, Impaired Vision, Other (See Below) Other HEENT History: wears eyeglasses Cardiovascular History: Reports: Angina, Arrhythmia, Blood Clots/VTE/DVT, CAD, Heart Failure, High Cholesterol, Hypertension, Stents Other Cardiovascular History: carotid artery disease, ventricular bigeminy, golden ycardia, hypotension Respiratory History: Reports: Asthma, COPD, Pneumonia, Recurrent, Other (See Below) Other Respiratory History: used to wear O2 at night, but doesn't anymore Gastrointestinal History: Reports: Chronic Constipation, GERD, GI Bleed, Hemorrhoids, Hiatal Hernia, Irritable Bowel Syndrome Genitourinary History: Reports: Chronic Renal Insuffiency Other Genitourinary History: renal disease, CKD III VISITOR SERVICES COORDINATOR History: Reports: Other VISITOR SERVICES COORDINATOR History: hysterectomy Musculoskeletal History: Reports: Arthritis, Back Pain, Chronic, Gout, Osteoarthritis, Osteoporosis Other Musculoskeletal History: Left sided sciatica, plantar fascia syndrome Neurological History: Reports: CVA, Neuropathy, Diabetic Other Neuro History: dizziness Psychiatric History: Reports: Anxiety, Depression Endocrine/Metabolic History: Reports: Diabetes, Type II, Obesity/BMI 30+ Hematologic History: Reports: Anemia, Anticoagulation Therapy, Blood Transfusion(s), Iron Deficiency Other Hematologic History: hypercalcemia, hyperkalemia Immunologic History: Reports: None Oncologic (Cancer) History: Reports: None Dermatologic History: Reports: Eczema Other Dermatologic History: eczema - Infectious Disease History Infectious Disease History: Reports: Influenza, RSV - Past Surgical History Head Surgeries/Procedures: Reports: None HEENT Surgical History: Reports: Cataract Surgery Other HEENT Surgeries/Procedures: Pt. has history of cataract surgery. Cardiovascular Surgical History: Reports: Coronary Artery Stent, Percutaneous Transluminal Angioplasty Other Cardiovascular Surgeries/Procedures: Doctors have been keeping an eye on her left and right carotid Respiratory Surgical History: Reports: None GI Surgical History: Reports: Colonoscopy, Hernia Repair/Other, Other (See Below) Other GI Surgeries/Procedures: hemorrhoid banding, hemorrhoidectomy Female Surgical History: Reports: Hysterectomy Other Female Surgeries/Procedures: Endocrine Surgical History: Reports: None Neurological Surgical History: Reports: None Musculoskeletal Surgical History: Reports: Carpal Tunnel Oncologic Surgical History: Reports: None Social & Family History - Family History Family Medical History: No Pertinent Family History HEENT: Reports: Hearing Impairment Cardiac: Reports: High Cholesterol, Hypertension Respiratory: Reports: Asthma : Reports: Renal Disease/Insufficiency Musculoskeletal: Reports: Arthritis, Back pain, Chronic, Gout Neurological: Reports: Seizure Psychiatric: Reports: Schizophrenia Endocrine/Metabolic: Reports: Diabetes, Type I, Diabetes, type II, Obesity/MBI 30+ Dermatologic: Reports: Eczema Oncologic: Reports: Bone, Lung - Tobacco Use Tobacco Use Status *Q: Never Tobacco User - Caffeine Use Caffeine Use: Reports: Coffee Other Caffeine Use: cup of coffee every morning Caffeine Use Comment: Drinks about 1 cup of coffee and 1-2 cups of iced tea a day. - Living Situation & Occupation Living situation: Reports: , Alone Occupation: Retired ED ROS GENERAL - Review of Systems Review Of Systems: Comprehensive ROS is negative, except as noted in HPI. ED EXAM, RENAL/ - Physical Exam Exam: See Below General Appearance: Alert, WD/WN, No Apparent Distress Respiratory/Chest: No Respiratory Distress, Lungs Clear, Normal Breath Sounds, No Accessory Muscle Use, Chest Non-Tender Cardiovascular: Normal Peripheral Pulses, Regular Rate, Rhythm, No Edema, No Gallop, No JVD, No Murmur, No Rub GI/Abdominal: Normal Bowel Sounds, Soft, Non-Tender, No Organomegaly, No Distention, No Abnormal Bruit, No Mass Neurological: Alert, Oriented, CN II-XII Intact, Normal Cognition, Normal Gait, Normal Reflexes, No Motor/Sensory Deficits Psychiatric: Normal Affect, Normal Mood Skin Exam: Warm, Dry, Intact, Normal Color, No Rash Course - Vital Signs Last Recorded V/S: Last Vital Signs Temp 97.0 F 11/23/20 13:04 Pulse 64 11/23/20 13:04 Resp 18 11/23/20 13:04 BP 180/92 H 11/23/20 13:04 Pulse Ox 100 11/23/20 13:04 - Orders/Labs/Meds Labs: Laboratory Tests 11/23/20 Range/Units 14:18 Urine Color Yellow (Yellow) Urine Appearance Clear (Clear) Urine pH 6.5 (5.0-8.0) Ur Specific [place] 1.015 (1.005-1.030) Urine Protein Negative (Negative) Urine Glucose (UA) Negative (Negative) Urine Ketones Negative (Negative) Urine Occult Blood Negative (Negative) Urine Nitrite Negative (Negative) Urine Bilirubin Negative (Negative) Urine Urobilinogen 0.2 (0.2-1.0) Ur Leukocyte Esterase Trace H (Negative) Urine RBC 0-5 (0-5) /hpf Urine WBC 0-5 (0-5) /hpf Ur Squamous Epith Cells 5-10 H (0-5) /hpf Urine Bacteria Few (FEW) /hpf Urine Mucus Not seen (FEW) /hpf - Re-Assessments/Exams Free Text/Narrative Re-Assessment/Exam: Patient is a 80-year-old female presenting to the emergency department with request of having Browning catheter placed. She had a chronic catheter until November 21 when it was removed. She reports dribbling of urine and is wanting the catheter reinserted. On triage, nursing staff did complete a bladder scan which showed 350 mils of prevoid urine. Patient was able to void and had postvoid residual of 72 mils. Based on this, patient does not require a catheter for urinary retention. I will check a urinalysis to ensure she does not have a urinary tract infection. 11/23/20 15:04 Urinalysis was negative for infection. Results discussed with patient. She is not retaining a significant amount of urine, therefore I would not recommend that we insert a catheter as it increases her risk of infection. Her dribbling is likely due to decreased drank in her pelvic floor muscles given the catheter she was wearing for 3 months. Recommend pads and briefs as needed for dribbling. Follow-up with primary care provider. Discharge instructions as document. Departure - Departure Time of Disposition: 15:04 Disposition: Home, Self-Care 01 Condition: Good Clinical Impression: Urinary dribbling - Discharge Information *PRESCRIPTION DRUG MONITORING PROGRAM REVIEWED*: No *COPY OF PRESCRIPTION DRUG MONITORING REPORT IN PATIENT CHRISTOPHE: No Instructions: Urinary Incontinence Referrals: PCP,None [Primary Care Provider] - Forms: ED Department Discharge Additional Instructions: You were seen in the emergency department today for evaluation of dribbling of urine after having her catheter taken out 2 days ago. Ultrasounds were completed on your bladder before and after you urinated and they show that you are not retaining a significant amount of urine. Urinalysis was also completed and shows that you do not have a urinary tract infection. Your dribbling is likely related to weakening of your pelvic floor muscles as a result of wearing the catheter for an extended period of time. Recommend that you wear pads as needed for the dribbling. You may do Kegel exercises to help strengthen your pelvic floor muscles. Recommend follow-up with your primary care provider to discuss your symptoms. Return to ER as needed. Sepsis Event Note (ED) - Evaluation Sepsis Screening Result: No Definite Risk - Focused Exam Vital Signs: Vital Signs Temp Pulse Resp BP Pulse Ox 11/23/20 13:04 97.0 F 64 18 180/92 H 100
== END 2020-11-23 15:30 | disposition home or self-care (01) ==
LOC: JD.ED 12:19
DX: N39.43 Post-void dribbling (principal); I25.10 Atherosclerotic heart disease of native coronary artery without angina pectoris; E11.22 Type 2 diabetes mellitus with diabetic chronic kidney disease; E11.43 Type 2 diabetes mellitus with diabetic autonomic (poly)neuropathy; I13.0 Hypertensive heart and chronic kidney disease with heart failure and stage 1 through stage 4 chronic kidney disease, or unspecified chronic kidney disease; N18.30 Chronic kidney disease, stage 3 unspecified; I50.9 Heart failure, unspecified; E78.00 Pure hypercholesterolemia, unspecified; J44.9 Chronic obstructive pulmonary disease, unspecified; M10.9 Gout, unspecified; Z88.0 Allergy status to penicillin; Z91.040 Latex allergy status; Z91.018 Allergy to other foods; Z79.82 Long term (current) use of aspirin; Z79.01 Long term (current) use of anticoagulants; Z79.899 Other long term (current) drug therapy; Z86.73 Personal history of transient ischemic attack (TIA), and cerebral infarction without residual deficits
CPT/HCPCS: 81001; 99283

== ENCOUNTER 2020-12-29 10:51 | Emergency (ER) | payer MEDICARE, MEDICAID ==
[2020-12-29] MEDS ORDERED: Sodium Chloride 0.9% 10 ML Syringe FLUSH PRN (11:25)
[2020-12-29] MEDS ORDERED: Ondansetron 4 MG/2 ML SDV IVPUSH ONE (11:28)
--- NOTE | 2020-12-29 11:34 | EDM.PDOC ---
ED HPI GENERAL MEDICAL PROBLEM - General Chief Complaint: Respiratory Problem Stated Complaint: COVID+ DIARRHEA FEVER Time Seen by Provider: 12/29/20 11:03 Source of Information: Reports: Patient History Limitations: Reports: No Limitations - History of Present Illness INITIAL COMMENTS - FREE TEXT/NARRATIVE: 80-year-old female presents the emergency department today with complaints of fever, chills, nausea, vomiting, diarrhea, generalized body aches, headache, cough and chest discomfort due to cough. She states she has had decreased appetite. She denies any urinary symptoms. She states she developed the symptoms Saturday, November 21, 2020. She states she was tested for Covid that day and did test positive. She states she has had both of her Covid vaccines however she is unable to recall which one. She has not had her Covid booster. She also notes that she does have a history of smoking. States she quit 15 years ago she was a 2 to 3 pack a day smoker for approximately 15 years. She does have a history of congestive heart failure. She also does take Coumadin daily. Primary care provider is Dr. Robins. - Related Data Allergies Allergy/AdvReac Type Severity Reaction Status Date / Time Penicillins Allergy Severe Swelling Verified 12/29/20 11:05 latex Allergy Intermediate Rash Verified 12/29/20 11:05 pineapple Allergy Intermediate Rash Verified 12/29/20 11:05 Home Meds: Home Meds Albuterol/Ipratropium [DuoNeb 3.0-0.5 MG/3 ML] 3 ml INH BID PRN 10/16/18 [History] Aspirin 81 mg PO DAILY 10/16/18 [History] Dicyclomine [Bentyl] 20 mg PO QID 10/16/18 [History] Furosemide 40 mg PO DAILY 10/16/18 [History] Nitroglycerin 0.4 mg PO Q5M PRN MDD 3 doses 10/16/18 [History] Pantoprazole [ProTONIX] 40 mg PO DAILY 10/16/18 [History] Potassium Chloride 20 meq PO DAILY 10/16/18 [History] Sertraline [Zoloft] 50 mg PO BEDTIME 10/16/18 [History] allopurinoL [Zyloprim] 300 mg PO DAILY 10/16/18 [History] Albuterol [Ventolin HFA] 2 puff INH BID PRN 11/20/19 [History] Docusate Sodium [Colace] 100 mg PO BID 11/20/19 [History] Rosuvastatin Calcium [Crestor] 40 mg PO DAILY 11/20/19 [History] lisinopriL [Lisinopril] 20 mg PO DAILY 11/20/19 [History] Warfarin [Coumadin] 2.5 mg PO MOWEFR 02/22/20 [History] Warfarin [Coumadin] 5 mg PO SUTUTHSA 02/22/20 [History] Cholecalciferol (Vitamin D3) [Vitamin D3] 25 mcg PO DAILY 04/14/20 [History] Fluticasone Propionate [Flovent HFA 220 MCG] 1 puff PO BID 04/14/20 [History] Ascorbic Acid [Vitamin C] 250 mg PO DAILY 08/31/20 [History] Cefdinir [Omnicef] 300 mg PO BID 7 Days #14 cap 08/31/20 [Rx] Ferrous Sulfate 325 mg PO MOWEFR 08/31/20 [History] Mometasone Furoate [Nasonex [place]] 1 spray CONRAD BID 08/31/20 [History] Olopatadine HCl [Pataday] 1 drop EYEBOTH BID 08/31/20 [History] polyethylene glycoL 3350 [MiraLAX] 1 pkg PO DAILY 08/31/20 [History] cephALEXin [Keflex] 500 mg PO BID #10 cap 09/17/20 [Rx] levoFLOXacin [Levofloxacin] 500 mg PO DAILY 7 Days #6 tablet 10/05/20 [Rx] metroNIDAZOLE [Flagyl] 500 mg PO TID 7 Days #20 tab 10/05/20 [Rx] Ondansetron [Zofran ODT] 4 mg PO Q6H PRN #12 tab.dis 12/29/20 [Rx] Past Medical History HEENT History: Reports: Cataract, Impaired Vision, Other (See Below) Other HEENT History: wears eyeglasses Cardiovascular History: Reports: Angina, Arrhythmia, Blood Clots/VTE/DVT, CAD, Heart Failure, High Cholesterol, Hypertension, Stents Other Cardiovascular History: carotid artery disease, ventricular bigeminy, bradycardia, hypotension Respiratory History: Reports: Asthma, COPD, Pneumonia, Recurrent, Other (See Below) Other Respiratory History: used to wear O2 at night, but doesn't anymore Gastrointestinal History: Reports: Chronic Constipation, GERD, GI Bleed, Hemorrhoids, Hiatal Hernia, Irritable Bowel Syndrome Genitourinary History: Reports: Chronic Renal Insuffiency Other Genitourinary History: renal disease, CKD III 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: Other ASSISTANT CLINICAL NURSE MANAGER History: hysterectomy Musculoskeletal History: Reports: Arthritis, Back Pain, Chronic, Gout, Osteoarthritis, Osteoporosis Other Musculoskeletal History: Left sided sciatica, plantar fascia syndrome Neurological History: Reports: CVA, Neuropathy, Diabetic Other Neuro History: dizziness Psychiatric History: Reports: Anxiety, Depression Endocrine/Metabolic History: Reports: Diabetes, Type II, Obesity/BMI 30+ Hematologic History: Reports: Anemia, Anticoagulation Therapy, Blood Transfusion(s), Iron Deficiency Other Hematologic History: hypercalcemia, hyperkalemia Immunologic History: Reports: None Oncologic (Cancer) History: Reports: None Dermatologic History: Reports: Eczema Other Dermatologic History: eczema - Infectious Disease History Infectious Disease History: Reports: Influenza, Novel Coronavirus, RSV - Past Surgical History Head Surgeries/Procedures: Reports: None HEENT Surgical History: Reports: Cataract Surgery Other HEENT Surgeries/Procedures: Pt. has history of cataract surgery. Cardiovascular Surgical History: Reports: Coronary Artery Stent, Percutaneous Transluminal Angioplasty Other Cardiovascular Surgeries/Procedures: Doctors have been keeping an eye on her left and right carotid Respiratory Surgical History: Reports: None GI Surgical History: Reports: Colonoscopy, Hernia Repair/Other, Other (See Below) Other GI Surgeries/Procedures: hemorrhoid banding, hemorrhoidectomy Female Surgical History: Reports: Hysterectomy Other Female Surgeries/Procedures: Endocrine Surgical History: Reports: None Neurological Surgical History: Reports: None Musculoskeletal Surgical History: Reports: Carpal Tunnel Oncologic Surgical History: Reports: None Social & Family History - Family History Family Medical History: No Pertinent Family History HEENT: Reports: Hearing Impairment Cardiac: Reports: High Cholesterol, Hypertension Respiratory: Reports: Asthma : Reports: Renal Disease/Insufficiency Musculoskeletal: Reports: Arthritis, Back pain, Chronic, Gout Neurological: Reports: Seizure Psychiatric: Reports: Schizophrenia Endocrine/Metabolic: Reports: Diabetes, Type I, Diabetes, type II, Obesity/MBI 30+ Dermatologic: Reports: Eczema Oncologic: Reports: Bone, Lung - Tobacco Use Tobacco Use Status *Q: Former Tobacco User Used Tobacco, but Quit: Yes Month/Year Tobacco Last Used: 20+ years ago - Caffeine Use Caffeine Use: Reports: Coffee Other Caffeine Use: cup of coffee every morning Caffeine Use Comment: Drinks about 1 cup of coffee and 1-2 cups of iced tea a day. - Recreational Drug Use Recreational Drug Use: No - Living Situation & Occupation Living situation: Reports: , Alone Occupation: Retired ED ROS GENERAL - Review of Systems Review Of Systems: Comprehensive ROS is negative, except as noted in HPI. ED EXAM, GENERAL - Physical Exam Exam: See Below Exam Limited By: No Limitations General Appearance: Alert, WD/WN, Mild Distress Eye Exam: Bilateral Eye: PERRL Ears: Normal External Exam, Hearing Grossly Normal Nose: Normal Inspection Throat/Mouth: Normal Inspection, Normal Lips, Normal Voice, No Airway Compromise Head: Atraumatic, Normocephalic Neck: Normal Inspection, Supple Respiratory/Chest: No Respiratory Distress, No Accessory Muscle Use, Chest Non- Tender, Decreased Breath Sounds, Wheezing (Fine expiratory wheeze noted bilaterally) Cardiovascular: Normal Peripheral Pulses, Regular Rate, Rhythm, No Edema, No Murmur Peripheral Pulses: 2+: Radial (L), Radial (R) GI/Abdominal: Normal Bowel Sounds, Soft, Non-Tender, No Distention (Female) Exam: Deferred Rectal (Female) Exam: Deferred Back Exam: Normal Inspection, Full Range of Motion Extremities: Normal Inspection, Normal Range of Motion, Non-Tender, No Pedal Edema, Normal Capillary Refill Neurological: Alert, Oriented, Normal Cognition Psychiatric: Normal Affect, Normal Mood Skin Exam: Warm, Dry, Intact, Normal Color, No Rash Lymphatic: No Adenopathy #1 Interpretation EKG Date: 12/29/20 Time: 11:36 Rhythm: NSR Rate (Beats/Min): 61 [place]: Normal P-Wave: Present QRS: Normal ST-T: Normal QT: Normal EKG Interpretation Comments: Per Dr. Sadler interpretation: Sinus rhythm at 61 bpm; probable anterior infar ct, old Course - Vital Signs Text/Narrative:: As stated above, patient presents with worsening Covid symptoms. At the time of my physical exam, the patient is hemodynamically stable with O2 saturations at 95%. Physical exam is essentially unremarkable other than lung sounds being diminished with fine expiratory wheeze noted. Will obtain lab studies to include CBC, CMP, magnesium, C-reactive protein, D-dimer as well as an EKG and portable chest x-ray. Last Recorded V/S: Last Vital Signs Temp 97.8 F 12/29/20 11:03 Pulse 65 12/29/20 11:03 Resp 25 H 12/29/20 11:03 BP 169/91 H 12/29/20 11:03 Pulse Ox 94 L 12/29/20 11:03 - Orders/Labs/Meds Orders: Active Orders 24 hr Category Date Time Status EPINEPHrine [Adrenalin] Med 12/29/20 12:34 Active 0.3 mg IM ASDIRECTED PRN Famotidine [Pepcid] Med 12/29/20 12:34 Active 20 mg IVPUSH ASDIRECTED PRN Sodium Chloride 0.9% [Saline Flush] Med 12/29/20 11:25 Active 10 ml FLUSH ASDIRECTED PRN Sodium Chloride 0.9% [Saline Flush] Med 12/29/20 12:45 Active 30 ml FLUSH ASDIRECTED diphenhydrAMINE [Benadryl] Med 12/29/20 12:34 Active 50 mg IVPUSH ASDIRECTED PRN methylPREDNISolone Sod Succ [Solu-MEDROL] Med 12/29/20 12:34 Active 125 mg IVPUSH ASDIRECTED PRN Saline Lock Insert [OM.PC] Stat Oth 12/29/20 11:25 Ordered Medication Orders Diphenhydramine HCl (Diphenhydramine 50 Mg/Ml Sdv) 50 mg IVPUSH ASDIRECTED PRN PRN Reason: hypersensitivity reaction Epinephrine HCl (Epinephrine 1 Mg/Ml Sdv) 0.3 mg IM ASDIRECTED PRN PRN Reason: hypersensitivity reaction Famotidine (Famotidine 20 Mg/2 Ml Sdv) 20 mg IVPUSH ASDIRECTED PRN PRN Reason: hypersensitivity reaction Methylprednisolone Sodium Succinate (Methylprednisolone Sodium Succinate 125 Mg/2 Ml Sdv) 125 mg IVPUSH ASDIRECTED PRN PRN Reason: hypersensitivity reaction Sodium Chloride (Sodium Chloride 0.9% 10 Ml Syringe) 10 ml FLUSH ASDIRECTED PRN PRN Reason: Keep Vein Open Last Admin: 12/29/20 11:29 Dose: 10 ml Documented by: LIONEL Sodium Chloride (Sodium Chloride 0.9% 10 Ml Syringe) 30 ml FLUSH ASDIRECTED LUCI Labs: Laboratory Tests 12/29/20 12/29/20 12/29/20 Range/Units 11:10 11:10 11:10 WBC 11.58 H (3.98-10.04) K/mm3 RBC 4.34 (3.98-5.22) M/mm3 Hgb 12.9 D (11.2-15.7) gm/dl Hct 41.4 (34.1-44.9) % MCV 95.4 H D (79.4-94.8) fl MCH 29.7 (25.6-32.2) pg MCHC 31.2 L (32.2-35.5) g/dl RDW Std Deviation 48.6 H (36.4-46.3) fL Plt Count 148 L (182-369) K/mm3 MPV 10.4 (9.4-12.3) fl Neut % (Auto) 79.3 H (34.0-71.1) % Lymph % (Auto) 11.3 L (19.3-51.7) % [place] % (Auto) 8.7 (4.7-12.5) % Eos % (Auto) 0.2 L (0.7-5.8) Baso % (Auto) 0.2 (0.1-1.2) % Neut # (Auto) 9.19 H (1.56-6.13) K/mm3 Lymph # (Auto) 1.31 (1.18-3.74) K/mm3 [place] # (Auto) 1.01 H (0.24-0.36) K/mm3 Eos # (Auto) 0.02 L (0.04-0.36) K/mm3 Baso # (Auto) 0.02 (0.01-0.08) K/mm3 D-Dimer, Quantitative 0.46 (0.19-0.50) mg/L Sodium 132 L (136-145) mEq/L Potassium 4.3 (3.5-5.1) mEq/L Chloride 98 (98-107) mEq/L Carbon Dioxide 26 (21-32) mEq/L Anion Gap 12.3 (5-15) BUN 22 H (7-18) mg/dL Creatinine 1.5 H (0.55-1.02) mg/dL Est Cr Clr Drug Dosing 27.36 mL/min Estimated GFR (MDRD) 33 (>60) mL/min BUN/Creatinine Ratio 14.7 (14-18) Glucose 92 (70-99) mg/dL Calcium 8.8 (8.5-10.1) mg/dL Magnesium 1.8 (1.8-2.4) mg/dL Total Bilirubin 0.3 (0.2-1.0) mg/dL AST 44 H (15-37) U/L ALT 41 (14-59) U/L Alkaline Phosphatase 53 (46-116) U/L C-Reactive Protein 16.9 H* (<1.0) mg/dL Total Protein 6.1 L (6.4-8.2) g/dl Albumin 2.5 L (3.4-5.0) g/dl Globulin 3.6 gm/dL Albumin/Globulin Ratio 0.7 L (1-2) Urine Color (Yellow) Urine Appearance (Clear) Urine pH (5.0-8.0) Ur Specific [place] (1.005-1.030) Urine Protein (Negative) Urine Glucose (UA) (Negative) Urine Ketones (Negative) Urine Occult Blood (Negative) Urine Nitrite (Negative) Urine Bilirubin (Negative) Urine Urobilinogen (0.2-1.0) Ur Leukocyte Esterase (Negative) Urine RBC (0-5) /hpf Urine WBC (0-5) /hpf Ur Epithelial Cells (0-5) /hpf Urine Bacteria (FEW) /hpf Urine Mucus (FEW) /hpf 12/29/20 Range/Units 14:30 WBC (3.98-10.04) K/mm3 RBC (3.98-5.22) M/mm3 Hgb (11.2-15.7) gm/dl Hct (34.1-44.9) % MCV (79.4-94.8) fl MCH (25.6-32.2) pg MCHC (32.2-35.5) g/dl RDW Std Deviation (36.4-46.3) fL Plt Count (182-369) K/mm3 MPV (9.4-12.3) fl Neut % (Auto) (34.0-71.1) % Lymph % (Auto) (19.3-51.7) % [place] % (Auto) (4.7-12.5) % Eos % (Auto) (0.7-5.8) Baso % (Auto) (0.1-1.2) % Neut # (Auto) (1.56-6.13) K/mm3 Lymph # (Auto) (1.18-3.74) K/mm3 [place] # (Auto) (0.24-0.36) K/mm3 Eos # (Auto) (0.04-0.36) K/mm3 Baso # (Auto) (0.01-0.08) K/mm3 D-Dimer, Quantitative (0.19-0.50) mg/L Sodium (136-145) mEq/L Potassium (3.5-5.1) mEq/L Chloride (98-107) mEq/L Carbon Dioxide (21-32) mEq/L Anion Gap (5-15) BUN (7-18) mg/dL Creatinine (0.55-1.02) mg/dL Est Cr Clr Drug Dosing mL/min Estimated GFR (MDRD) (>60) mL/min BUN/Creatinine Ratio (14-18) Glucose (70-99) mg/dL Calcium (8.5-10.1) mg/dL Magnesium (1.8-2.4) mg/dL Total Bilirubin (0.2-1.0) mg/dL AST (15-37) U/L ALT (14-59) U/L Alkaline Phosphatase (46-116) U/L C-Reactive Protein (<1.0) mg/dL Total Protein (6.4-8.2) g/dl Albumin (3.4-5.0) g/dl Globulin gm/dL Albumin/Globulin Ratio (1-2) Urine Color Yellow (Yellow) Urine Appearance Clear (Clear) Urine pH 7.5 (5.0-8.0) Ur Specific [place] 1.015 (1.005-1.030) Urine Protein 2+ H (Negative) Urine Glucose (UA) Negative (Negative) Urine Ketones Negative (Negative) Urine Occult Blood Trace-lysed H (Negative) Urine Nitrite Negative (Negative) Urine Bilirubin Negative (Negative) Urine Urobilinogen 1.0 (0.2-1.0) Ur Leukocyte Esterase Negative (Negative) Urine RBC 5-10 H (0-5) /hpf Urine WBC 0-5 (0-5) /hpf Ur Epithelial Cells 0-5 (0-5) /hpf Urine Bacteria Few (FEW) /hpf Urine Mucus Not seen (FEW) /hpf Meds: Medications Generic Name Dose Route Start Last Admin Trade Name Freq PRN Reason Stop Dose Admin Diphenhydramine HCl 50 mg 12/29/20 12:34 Diphenhydramine 50 Mg/Ml Sdv IVPUSH ASDIRECTED PRN hypersensitivity reaction Epinephrine HCl 0.3 mg 12/29/20 12:34 Epinephrine 1 Mg/Ml Sdv IM ASDIRECTED PRN hypersensitivity reaction Famotidine 20 mg 12/29/20 12:34 Famotidine 20 Mg/2 Ml Sdv IVPUSH ASDIRECTED PRN hypersensitivity reaction Methylprednisolone Sodium Succinate 125 mg 12/29/20 12:34 Methylprednisolone Sodium Succinate 125 Mg/2 Ml Sdv IVPUSH ASDIRECTED PRN hypersensitivity reaction Sodium Chloride 10 ml 12/29/20 11:25 12/29/20 11:29 Sodium Chloride 0.9% 10 Ml Syringe FLUSH 10 ml ASDIRECTED PRN Administration Keep Vein Open Sodium Chloride 30 ml 12/29/20 12:45 Sodium Chloride 0.9% 10 Ml Syringe FLUSH ASDIRECTED LUCI Discontinued Medications Generic Name Dose Route Start Last Admin Trade Name Freq PRN Reason Stop Dose Admin Bamlanivimab 700 mg/ 310 mls @ 310 mls/hr 12/29/20 13:00 12/29/20 12:56 Etesevimab 1,400 mg/ Sodium IV 12/29/20 13:59 310 mls/hr Chloride ONETIME ONE Administration Ondansetron HCl 4 mg 12/29/20 11:28 12/29/20 11:33 Ondansetron 4 Mg/2 Ml Sdv IVPUSH 12/29/20 11:29 4 mg ONETIME ONE Administration - Re-Assessments/Exams Free Text/Narrative Re-Assessment/Exam: 12/29/20 12:32 Radiologist impression frontal view of the chest: Slight parenchymal density is seen within the right lateral costophrenic angle. Minimal density is seen within the left lung base. Slight density is noted within the right upper lung. Heart size appears slightly prominent. Tortuous thoracic aorta is seen. Bony structures show nothing acute. Impression: One. Findings suspicious for minimal Covid pneumonia. 2. Heart size is slightly prominent. 12/29/20 12:33 I spoke with the patient to provide information about Bamlanivimad for herself. I offered her the fax sheet for patients and caregivers for Bamlanivimad to read and review. I stated the therapy has been approved by an emergency use authorization process and has not fully been FDA reviewed or approved. I shared the potential risks from the therapy including risks/adverse reactions. I discussed there are other potential treatment options that are currently not FDA approved to treat COVID-19. Offered opportunity ask questions and all questions were answered. Patient voiced understanding and agreed to proceed with treatment for herself. 12/29/20 12:54 Hematology reveals a WBC of 11.58, hemoglobin 12.9, hematocrit 41.4, platelet count 148 Coagulation reveals a D-dimer 0.46 Chemistry reveals a sodium of 132, potassium 4.3, carbon dioxide 26, anion gap 12.3, BUN 22, creatinine 1.5, GFR 33, glucose 92, magnesium 1.8, AST 44, ALT 41, C-reactive protein 16.9 12/29/20 15:20 Patient received antibiotic treatment and was observed for 1 hour after infusion. Patient did tolerate it well. Departure - Departure Time of Disposition: 15:29 Disposition: Home, Self-Care 01 Condition: Good Clinical Impression: COVID-19 - Discharge Information Prescriptions: Ondansetron [Zofran ODT] 4 mg PO Q6H PRN #12 tab.dis PRN Reason: Nausea/Vomiting Instructions: COVID-19: Quarantine vs. Isolation - [facility] (01/24/2020), 10 Things You Can Do to Manage Your COVID-19 Symptoms at Home - [facility] (08/22/2020) Referrals: Jabari Robins MD [Primary Care Provider] - Forms: ED Department Discharge Additional Instructions: You were seen in the emergency department today with worsening Covid symptoms. Lab studies were completed which were essentially unremarkable. Chest x-ray was also essentially unremarkable. You did receive Monoclonal body treatment while in the emergency department. As discussed, this should decrease the severity and length of time that you have Covid symptoms. You should begin to feel better in the next couple of days. I have sent prescription to your pharmacy for medication called Zofran, this medication is used to treat nausea and vomiting. You may take 1 tab every 6 hours as needed for nausea and vomiting. Place the tablet under your tongue and allow it to dissolve, do not swallow it whole. Wait approximately 30 minutes prior to eating or drinking to be sure the medication has taken full effect. You will need to isolate for 10 days time from the initial onset of your symptoms. Be sure to get plenty rest and drink plenty of fluids as well as eating small frequent meals. May take Tylenol 650 mg every 4 hours as needed for fever or discomfort or ibuprofen 600 mg every 6-8 hours as needed for fever or discomfort. Should your condition worsen or change, do not hesitate returning to the emergency department. Sepsis Event Note (ED) - Focused Exam Vital Signs: Vital Signs Temp Pulse Resp BP Pulse Ox 12/29/20 11:03 97.8 F 65 25 H 169/91 H 94 L - My Orders Last 24 Hours: My Active Orders 12/29/20 11:25 Sodium Chloride 0.9% [Saline Flush] 10 ml FLUSH ASDIRECTED PRN Saline Lock Insert [OM.PC] Stat 12/29/20 12:34 EPINEPHrine [Adrenalin] 0.3 mg IM ASDIRECTED PRN Famotidine [Pepcid] 20 mg IVPUSH ASDIRECTED PRN diphenhydrAMINE [Benadryl] 50 mg IVPUSH ASDIRECTED PRN methylPREDNISolone Sod Succ [Solu-MEDROL] 125 mg IVPUSH ASDIRECTED PRN 12/29/20 12:45 Sodium Chloride 0.9% [Saline Flush] 30 ml FLUSH ASDIRECTED - Assessment/Plan Last 24 Hours: My Active Orders 12/29/20 11:25 Sodium Chloride 0.9% [Saline Flush] 10 ml FLUSH ASDIRECTED PRN Saline Lock Insert [OM.PC] Stat 12/29/20 12:34 EPINEPHrine [Adrenalin] 0.3 mg IM ASDIRECTED PRN Famotidine [Pepcid] 20 mg IVPUSH ASDIRECTED PRN diphenhydrAMINE [Benadryl] 50 mg IVPUSH ASDIRECTED PRN methylPREDNISolone Sod Succ [Solu-MEDROL] 125 mg IVPUSH ASDIRECTED PRN 12/29/20 12:45 Sodium Chloride 0.9% [Saline Flush] 30 ml FLUSH ASDIRECTED
--- NOTE | 2020-12-29 12:08 | CR ---
Chest: Frontal view of the chest was obtained. Comparison: Prior chest x-ray of 10/05/20. Slight parenchymal density is seen within the lateral right costophrenic angle. Minimal density is seen within the left lung base. Slight density is noted within the right upper lung. Heart size appears slightly prominent. Tortuous thoracic aorta is seen. Bony structures show nothing acute. Impression: 1. Findings suspicious for minimal COVID pneumonia. 2. Heart size is slightly prominent. Diagnostic code #3
[2020-12-29] MEDS ORDERED: diphenhydrAMINE 50 MG/ML SDV IVPUSH PRN (12:34)
[2020-12-29] MEDS ORDERED: EPINEPHrine 1 MG/ML SDV IM PRN (12:34)
[2020-12-29] MEDS ORDERED: methylPREDNISolone Sodium Succinate 125 MG/2 ML SDV IVPUSH PRN (12:34)
[2020-12-29] MEDS ORDERED: Famotidine 20 MG/2 ML SDV IVPUSH PRN (12:34)
[2020-12-29] MEDS ORDERED: Sodium Chloride 0.9% 10 ML Syringe FLUSH SCH (12:45)
[2020-12-29 17:03] VITALS: BP 142/70; PULSE 75
== END 2020-12-29 15:50 | disposition home or self-care (01) ==
LOC: JD.ED 10:51
DX: U07.1 COVID-19 (principal); I13.0 Hypertensive heart and chronic kidney disease with heart failure and stage 1 through stage 4 chronic kidney disease, or unspecified chronic kidney disease; E11.22 Type 2 diabetes mellitus with diabetic chronic kidney disease; N18.30 Chronic kidney disease, stage 3 unspecified; I50.9 Heart failure, unspecified; I25.10 Atherosclerotic heart disease of native coronary artery without angina pectoris; J44.9 Chronic obstructive pulmonary disease, unspecified; K21.9 Gastro-esophageal reflux disease without esophagitis; M10.9 Gout, unspecified; E11.40 Type 2 diabetes mellitus with diabetic neuropathy, unspecified; D50.9 Iron deficiency anemia, unspecified; E66.9 Obesity, unspecified; Z68.25 Body mass index [BMI] 25.0-25.9, adult; Z87.891 Personal history of nicotine dependence; Z88.0 Allergy status to penicillin; Z91.040 Latex allergy status; Z91.018 Allergy to other foods; Z79.01 Long term (current) use of anticoagulants; Z79.82 Long term (current) use of aspirin; Z79.899 Other long term (current) drug therapy
CPT/HCPCS: 96374; 99284; M0245; 36415; 71045; 71045-26; 80053; 81001; 83735; 85025; 85379; 86140; 93005; J2405; J7050; Q0245

== ENCOUNTER 2020-12-29 18:17 | Inpatient (IN) | payer MEDICARE, MEDICAID ==
--- NOTE | 2020-12-29 18:37 | EDM.PDOC ---
ED HPI GENERAL MEDICAL PROBLEM - General Chief Complaint: General Stated Complaint: [facility] Time Seen by Provider: 12/29/20 18:19 Source of Information: Reports: Patient, EMS History Limitations: Reports: No Limitations - History of Present Illness INITIAL COMMENTS - FREE TEXT/NARRATIVE: 76-year-old female presents the emergency department via [facility] for increased weakness and Covid symptoms. Patient was seen earlier in the emergency department today here and had a full work-up to include lab studies, chest x-ray. Patient had tested positive for Covid approximately 4 days ago. She did receive monoclonal antibody treatment while in the emergency department today and then was discharged back to [facility] living [facility]. When she returned to [facility] staff evaluated her and states she is too weak to live there and she is not welcome back. - Related Data Allergies Allergy/AdvReac Type Severity Reaction Status Date / Time Penicillins Allergy Severe Swelling Verified 12/29/20 21:07 latex Allergy Intermediate Rash Verified 12/29/20 21:07 pineapple Allergy Intermediate Rash Verified 12/29/20 21:07 Home Meds: Home Meds Furosemide 40 mg PO DAILY 10/16/18 [History] Nitroglycerin 0.4 mg PO Q5M PRN MDD 3 doses 10/16/18 [History] Pantoprazole [ProTONIX] 40 mg PO DAILY 10/16/18 [History] Potassium Chloride 20 meq PO DAILY 10/16/18 [History] Sertraline [Zoloft] 50 mg PO BEDTIME 10/16/18 [History] allopurinoL [Zyloprim] 300 mg PO BEDTIME 10/16/18 [History] Albuterol [Ventolin HFA] 2 puff INH BID PRN 11/20/19 [History] Rosuvastatin Calcium [Crestor] 40 mg PO BEDTIME 11/20/19 [History] lisinopriL [Lisinopril] 20 mg PO DAILY 11/20/19 [History] Warfarin [Coumadin] 2.5 mg PO ASDIRECTED 02/22/20 [History] Warfarin [Coumadin] 5 mg PO MOFR 02/22/20 [History] Fluticasone Propionate [Flovent HFA 220 MCG] 1 puff PO BID 04/14/20 [History] Ascorbic Acid [Vitamin C] 250 mg PO DAILY 08/31/20 [History] Ferrous Sulfate 325 mg PO MOWEFR 08/31/20 [History] Olopatadine HCl [Pataday Once Daily Relief] 1 drop EYEBOTH BID 08/31/20 [History] polyethylene glycoL 3350 [MiraLAX] 17 gm PO DAILY PRN 08/31/20 [History] Acetaminophen 1,000 mg PO Q6HR PRN 12/30/20 [History] Calcium Carbonate [Tums] 200 mg PO Q3HR PRN 12/30/20 [History] Cholecalciferol (Vitamin D3) [Vitamin D3] 25 mcg PO DAILY 12/30/20 [History] Guar Gum [Benefiber] 2 tsp PO TID 12/30/20 [History] Hydrocodone/Acetaminophen [HYDROcodone-Acetaminophen 5-325 MG] 1 tab PO Q6HR PRN 12/30/20 [History] Ipratropium/Albuterol Sulfate [Iprat-Albut 0.5-3(2.5) mg/3 ml] 1 inh INH BID PRN 12/30/20 [History] Mometasone Furoate [Nasonex [place]] 1 spray CONRAD BID 12/30/20 [History] Ondansetron [Zofran ODT] 4 mg PO Q4HR PRN 12/30/20 [History] Sennosides/Docusate Sodium [Senna Plus 8.6-50 mg Softgel] 1 tab PO DAILY 12/30/20 [History] Zinc Sulfate [Zincate] 220 mg PO DAILY #20 cap 01/02/21 [Rx] Past Medical History HEENT History: Reports: Cataract, Impaired Vision, Other (See Below) Other HEENT History: wears eyeglasses Cardiovascular History: Reports: Angina, Arrhythmia, Blood Clots/VTE/DVT, CAD, Heart Failure, High Cholesterol, Hypertension, Stents Other Cardiovascular History: carotid artery disease, ventricular bigeminy, bradycardia, hypotension Respiratory History: Reports: Asthma, COPD, Pneumonia, Recurrent, Other (See Below) Other Respiratory History: used to wear O2 at night, but doesn't anymore Gastrointestinal History: Reports: Chronic Constipation, GERD, GI Bleed, Hemorrhoids, Hiatal Hernia, Irritable Bowel Syndrome Genitourinary History: Reports: Chronic Renal Insuffiency Other Genitourinary History: renal disease, CKD III [employer] History: Reports: Other [employer] History: hysterectomy Musculoskeletal History: Reports: Arthritis, Back Pain, Chronic, Gout, Osteoarth ritis, Osteoporosis Other Musculoskeletal History: Left sided sciatica, plantar fascia syndrome Neurological History: Reports: CVA, Neuropathy, Diabetic Other Neuro History: dizziness Psychiatric History: Reports: Anxiety, Depression Endocrine/Metabolic History: Reports: Diabetes, Type II, Obesity/BMI 30+ Hematologic History: Reports: Anemia, Anticoagulation Therapy, Blood Transfusion(s), Iron Deficiency Other Hematologic History: hypercalcemia, hyperkalemia Immunologic History: Reports: None Oncologic (Cancer) History: Reports: None Dermatologic History: Reports: Eczema Other Dermatologic History: eczema - Infectious Disease History Infectious Disease History: Reports: Influenza, Novel Coronavirus, RSV - Past Surgical History Head Surgeries/Procedures: Reports: None HEENT Surgical History: Reports: Cataract Surgery Other HEENT Surgeries/Procedures: Pt. has history of cataract surgery. Cardiovascular Surgical History: Reports: Coronary Artery Stent, Percutaneous Transluminal Angioplasty Other Cardiovascular Surgeries/Procedures: Doctors have been keeping an eye on her left and right carotid Respiratory Surgical History: Reports: None GI Surgical History: Reports: Colonoscopy, Hernia Repair/Other, Other (See Below) Other GI Surgeries/Procedures: hemorrhoid banding, hemorrhoidectomy Female Surgical History: Reports: Hysterectomy Other Female Surgeries/Procedures: Endocrine Surgical History: Reports: None Neurological Surgical History: Reports: None Musculoskeletal Surgical History: Reports: Carpal Tunnel Oncologic Surgical History: Reports: None Social & Family History - Family History Family Medical History: No Pertinent Family History HEENT: Reports: Hearing Impairment Cardiac: Reports: High Cholesterol, Hypertension Respiratory: Reports: Asthma : Reports: Renal Disease/Insufficiency Musculoskeletal: Reports: Arthritis, Back pain, Chronic, Gout Neurological: Reports: Seizure Psychiatric: Reports: Schizophrenia Endocrine/Metabolic: Reports: Diabetes, Type I, Diabetes, type II, Obesity/MBI 30+ Dermatologic: Reports: Eczema Oncologic: Reports: Bone, Lung - Tobacco Use Tobacco Use Status *Q: Never Tobacco User - Caffeine Use Caffeine Use: Reports: Coffee Other Caffeine Use: cup of coffee every morning Caffeine Use Comment: Drinks about 1 cup of coffee and 1-2 cups of iced tea a day. - Living Situation & Occupation Living situation: Reports: , Alone Occupation: Retired ED ROS GENERAL - Review of Systems Review Of Systems: Comprehensive ROS is negative, except as noted in HPI. ED EXAM, GENERAL - Physical Exam Exam: See Below Exam Limited By: No Limitations General Appearance: Alert, WD/WN, Mild Distress Ears: Normal External Exam, Hearing Grossly Normal Nose: Normal Inspection Throat/Mouth: Normal Inspection, Normal Lips, Normal Voice, No Airway Compromise Head: Atraumatic Neck: Normal Inspection, Supple Respiratory/Chest: No Accessory Muscle Use, Chest Non-Tender, Wheezing (Expiratory wheezes noted bilaterally) Cardiovascular: Normal Peripheral Pulses, Regular Rate, Rhythm, No Edema, No Murmur Peripheral Pulses: 2+: Radial (L), Radial (R) GI/Abdominal: Normal Bowel Sounds, Soft, Non-Tender, No Distention (Female) Exam: Deferred Rectal (Female) Exam: Deferred Back Exam: Normal Inspection Extremities: Normal Inspection, Normal Range of Motion, Non-Tender, No Pedal Edema, Normal Capillary Refill Neurological: Alert, Oriented, Normal Cognition Psychiatric: Normal Affect, Normal Mood Skin Exam: Warm, Dry, Intact, Normal Color, No Rash Lymphatic: No Adenopathy Course - Vital Signs Text/Narrative:: As stated above patient presents with Covid and weakness. Patient's assisted living facility, [facility], states that the patient is too weak and they will not accept her back into their care. Discussed the case with Dr. Monreal and he has agreed to accept the patient into his service. Will not repeat lab studies or x-rays due to the fact that the patient just had them completed. Dr. Monreal is also agreeable to this plan. Last Recorded V/S: Last Vital Signs Temp 97.3 F 01/02/21 08:00 Pulse 47 L 01/02/21 08:00 Resp 16 01/02/21 08:00 BP 152/70 H 01/02/21 08:27 Pulse Ox 100 01/02/21 08:00 - Orders/Labs/Meds Orders: Medication Orders Acetaminophen (Acetaminophen 325 Mg Tab) 650 mg PO Q4H PRN PRN Reason: Pain (Mild 1-3)/fever Albuterol (Albuterol 0.083% 2.5 Mg/3 Ml Neb Soln) 2.5 mg NEB Q2H PRN PRN Reason: Shortness Of Breath/wheezing Albuterol (Albuterol 6.7 Gm Inhaler) 0 gm INH BID PRN PRN Reason: Shortness of Breath Albuterol/Ipratropium (Albuterol/Ipratropium 3.0-0.5 Mg/3 Ml Neb Soln) 3 ml NEB Q4H PRN PRN Reason: Shortness Of Breath/wheezing Allopurinol (Allopurinol 300 Mg Tab) 300 mg PO BEDTIME [facility] Last Admin: 01/01/21 20:36 Dose: 300 mg Documented by: Admin: 12/31/20 20:06 Dose: 300 mg Documented by: Admin: 12/30/20 20:06 Dose: 300 mg Documented by: KALIE Ascorbic Acid (Ascorbic Acid 500 Mg Tab) 250 mg PO DAILY [facility] Last Admin: 01/02/21 08:27 Dose: 250 mg Documented by: Admin: 01/01/21 08:02 Dose: 250 mg Documented by: Admin: 12/31/20 08:25 Dose: 250 mg Documented by: Admin: 12/30/20 09:41 Dose: 250 mg Documented by: DORA Calcium Carbonate/Glycine (Calcium Carbonate 500 Mg Tab.Chew) 500 mg PO Q3H PRN PRN Reason: Indigestion Cholecalciferol (Cholecalciferol (Vitamin D3) 25 Mcg Tab) 25 mcg PO DAILY [facility] Last Admin: 01/02/21 08:27 Dose: 25 mcg Documented by: Admin: 01/01/21 08:01 Dose: 25 mcg Documented by: Admin: 12/31/20 08:24 Dose: 25 mcg Documented by: Admin: 12/30/20 09:41 Dose: 25 mcg Documented by: DORA Dexamethasone (Dexamethasone 4 Mg Tab) 6 mg PO DAILY [facility] Stop: 01/07/21 09:01 Last Admin: 01/02/21 08:26 Dose: 6 mg Documented by: Admin: 01/01/21 08:01 Dose: 6 mg Documented by: Admin: 12/31/20 08:23 Dose: 6 mg Documented by: Admin: 12/30/20 09:41 Dose: 6 mg Documented by: Admin: 12/29/20 21:10 Dose: 6 mg Documented by: JERAMY Ferrous Sulfate (Ferrous Sulfate 324 Mg Tab.Ec) 324 mg PO MOWEFR [facility] Last Admin: 01/02/21 08:34 Dose: 324 mg Documented by: Admin: 12/31/20 08:31 Dose: 324 mg Documented by: ELIU Guaifenesin/Dextromethorphan (Guaifenesin/Dextromethorphan 100-10 Mg/5 Ml Soln 5 Ml Cup) 10 ml PO Q4H PRN PRN Reason: Cough Last Admin: 12/31/20 20:06 Dose: 10 ml Documented by: ROSY Insulin Human Lispro (Insulin Lispro 100 Unit/Ml 3 Ml Kwikpen) 0 unit SUBCUT QIDACANDBED [facility]; Protocol Last Admin: 01/02/21 08:26 Dose: Not Given Documented by: Admin: 01/01/21 21:47 Dose: 1 unit Documented by: Admin: 01/01/21 17:32 Dose: 1 unit Documented by: Admin: 01/01/21 12:05 Dose: 1 unit Documented by: Admin: 01/01/21 07:59 Dose: 1 unit Documented by: Admin: 12/31/20 21:31 Dose: 1 unit Documented by: Admin: 12/31/20 17:29 Dose: 1 unit Documented by: Admin: 12/31/20 12:26 Dose: 1 units Documented by: Admin: 12/31/20 08:21 Dose: 1 units Documented by: Admin: 12/30/20 21:46 Dose: 1 unit Documented by: Admin: 12/30/20 17:58 Dose: 1 unit Documented by: DORA Lisinopril (Lisinopril 20 Mg Tab) 20 mg PO DAILY [facility] Last Admin: 01/02/21 08:27 Dose: 20 mg Documented by: Admin: 01/01/21 15:24 Dose: 20 mg Documented by: PAPO Nitroglycerin (Nitroglycerin 0.4 Mg Tab.Sl) 0.4 mg SL Q5M PRN PRN Reason: Chest Pain Olopatadine Hcl 0.1% (Eye Drops Ptom) 1 drop EYEBOTH BID [facility] Last Admin: 01/02/21 08:28 Dose: 1 drop Documented by: Admin: 01/01/21 20:41 Dose: 1 drop Documented by: Admin: 01/01/21 08:03 Dose: 1 drop Documented by: Admin: 12/31/20 20:06 Dose: 1 drop Documented by: Admin: 12/31/20 08:27 Dose: 1 drop Documented by: Admin: 12/30/20 20:06 Dose: 1 drop Documented by: Admin: 12/30/20 13:30 Dose: 1 drop Documented by: DORA Ondansetron HCl (Ondansetron 4 Mg/2 Ml Sdv) 4 mg IV Q6H PRN PRN Reason: Nausea/Vomiting Ondansetron HCl (Ondansetron 4 Mg Tab.Dis) 4 mg PO Q4H PRN PRN Reason: Nausea Pantoprazole Sodium (Pantoprazole 40 Mg Tab.Cr) 40 mg PO DAILY [facility] Last Admin: 01/02/21 08:27 Dose: 40 mg Documented by: Admin: 01/01/21 08:01 Dose: 40 mg Documented by: Admin: 12/31/20 08:25 Dose: 40 mg Documented by: Admin: 12/30/20 09:41 Dose: 40 mg Documented by: DORA Polyethylene Glycol (Polyethylene Glycol 3350 Powder 17 Gm Packet) 17 gm PO DAILY PRN PRN Reason: Constipation Last Admin: 12/31/20 05:42 Dose: 17 gm Documented by: ROSY Rosuvastatin Calcium (Rosuvastatin 10 Mg Tab) 40 mg PO BEDTIME [facility] Last Admin: 01/01/21 20:36 Dose: 40 mg Documented by: Admin: 12/31/20 20:06 Dose: 40 mg Documented by: Admin: 12/30/20 20:06 Dose: 40 mg Documented by: KALIE Sertraline HCl (Sertraline 50 Mg Tab) 50 mg PO BEDTIME [facility] Last Admin: 01/01/21 20:36 Dose: 50 mg Documented by: Admin: 12/31/20 20:06 Dose: 50 mg Documented by: Admin: 12/30/20 20:07 Dose: 50 mg Documented by: KALIE Sodium Chloride (Sodium Chloride 0.9% 10 Ml Syringe) 10 ml FLUSH ASDIRECTED PRN PRN Reason: Keep Vein Open Last Admin: 12/29/20 19:35 Dose: 10 ml Documented by: DULCE Warfarin Sodium (Pharmacy To Dose - Warfarin) 1 dose .XX ASDIRECTED PRN PRN Reason: RX TO DOSE WARFARIN Warfarin Sodium (Warfarin 5 Mg Tab) 5 mg PO QPM [facility] Stop: 01/02/21 18:01 Zinc Sulfate (Zinc Sulfate 220 Mg Cap) 220 mg PO DAILY [facility] Last Admin: 01/02/21 08:27 Dose: 220 mg Documented by: Admin: 01/01/21 08:01 Dose: 220 mg Documented by: Admin: 12/31/20 08:25 Dose: 220 mg Documented by: Admin: 12/30/20 09:41 Dose: 220 mg Documented by: DORA Labs: Laboratory Tests 12/29/20 Range/Units 00:30 MRSA (PCR) Negative Meds: Medications Generic Name Dose Route Start Last Admin Trade Name Freq PRN Reason Stop Dose Admin Acetaminophen 650 mg 12/29/20 20:26 Acetaminophen 325 Mg Tab PO Q4H PRN Pain (Mild 1-3)/fever Albuterol 2.5 mg 12/29/20 20:26 Albuterol 0.083% 2.5 Mg/3 Ml Neb Soln NEB Q2H PRN Shortness Of Breath/wheezing Albuterol 0 gm 12/30/20 08:15 Albuterol 6.7 Gm Inhaler INH BID PRN Shortness of Breath Albuterol/Ipratropium 3 ml 12/29/20 20:26 Albuterol/Ipratropium 3.0-0.5 Mg/3 Ml Neb Soln NEB Q4H PRN Shortness Of Breath/wheezing Allopurinol 300 mg 12/30/20 21:00 01/01/21 20:36 Allopurinol 300 Mg Tab PO 300 mg BEDTIME [facility] Administration Ascorbic Acid 250 mg 12/30/20 09:00 01/02/21 08:27 Ascorbic Acid 500 Mg Tab PO 250 mg DAILY [facility] Administration Calcium Carbonate/Glycine 500 mg 12/30/20 08:15 Calcium Carbonate 500 Mg Tab.Chew PO Q3H PRN Indigestion Cholecalciferol 25 mcg 12/30/20 09:00 01/02/21 08:27 Cholecalciferol (Vitamin D3) 25 Mcg Tab PO 25 mcg DAILY [facility] Administration Dexamethasone 6 mg 12/29/20 20:30 01/02/21 08:26 Dexamethasone 4 Mg Tab PO 01/07/21 09:01 6 mg DAILY [facility] Administration Ferrous Sulfate 324 mg 12/31/20 09:00 01/02/21 08:34 Ferrous Sulfate 324 Mg Tab.Ec PO 324 mg MOWEFR [facility] Administration Guaifenesin/Dextromethorphan 10 ml 12/31/20 19:52 12/31/20 20:06 Guaifenesin/Dextromethorphan 100-10 Mg/5 Ml Soln 5 Ml Cup PO 10 ml Q4H PRN Administration Cough Insulin Human Lispro 0 unit 12/30/20 17:00 01/02/21 08:26 Insulin Lispro 100 Unit/Ml 3 Ml Kwikpen SUBCUT Not Given QIDACANDBED [facility] Protocol Lisinopril 20 mg 01/01/21 14:30 01/02/21 08:27 Lisinopril 20 Mg Tab PO 20 mg DAILY [facility] Administration Nitroglycerin 0.4 mg 12/30/20 08:15 Nitroglycerin 0.4 Mg Tab.Sl SL Q5M PRN Chest Pain Olopatadine Hcl 0.1% 1 drop 12/30/20 13:30 01/02/21 08:28 Eye Drops Ptom EYEBOTH 1 drop BID [facility] Administration Ondansetron HCl 4 mg 12/29/20 20:26 Ondansetron 4 Mg/2 Ml Sdv IV Q6H PRN Nausea/Vomiting Ondansetron HCl 4 mg 12/30/20 08:15 Ondansetron 4 Mg Tab.Dis PO Q4H PRN Nausea Pantoprazole Sodium 40 mg 12/30/20 09:00 01/02/21 08:27 Pantoprazole 40 Mg Tab.Cr PO 40 mg DAILY [facility] Administration Polyethylene Glycol 17 gm 12/30/20 08:15 12/31/20 05:42 Polyethylene Glycol 3350 Powder 17 Gm Packet PO 17 gm DAILY PRN Administration Constipation Rosuvastatin Calcium 40 mg 12/30/20 21:00 01/01/21 20:36 Rosuvastatin 10 Mg Tab PO 40 mg BEDTIME [facility] Administration Sertraline HCl 50 mg 12/30/20 21:00 01/01/21 20:36 Sertraline 50 Mg Tab PO 50 mg BEDTIME [facility] Administration Sodium Chloride 10 ml 12/29/20 18:43 12/29/20 19:35 Sodium Chloride 0.9% 10 Ml Syringe FLUSH 10 ml ASDIRECTED PRN Administration Keep Vein Open Warfarin Sodium 1 dose 12/30/20 08:30 Pharmacy To Dose - Warfarin .XX ASDIRECTED PRN RX TO DOSE WARFARIN Warfarin Sodium 5 mg 01/02/21 18:00 Warfarin 5 Mg Tab PO 01/02/21 18:01 QPM [facility] Zinc Sulfate 220 mg 12/30/20 09:00 01/02/21 08:27 Zinc Sulfate 220 Mg Cap PO 220 mg DAILY [facility] Administration Discontinued Medications Generic Name Dose Route Start Last Admin Trade Name Freq PRN Reason Stop Dose Admin Albuterol 2.5 mg 12/29/20 18:43 12/29/20 19:36 Albuterol 0.083% 2.5 Mg/3 Ml Neb Soln NEB 12/29/20 18:44 2.5 mg ONETIME ONE Administration Albuterol/Ipratropium ml 12/30/20 08:15 Albuterol/Ipratropium 3.0-0.5 Mg/3 Ml Neb Soln INH BID PRN sob Magnesium Hydroxide 30 ml 12/31/20 16:09 12/31/20 17:28 Magnesium Hydroxide 400 Mg/5 Ml Susp 30 Ml Cup PO 12/31/20 16:10 30 ml ONETIME ONE Administration Olopatadine Hcl 0.1% 1 drop 12/30/20 09:00 12/30/20 09:48 Eye Drops Ptom EYEBOTH Not Given BID [facility] Ondansetron HCl 4 mg 12/29/20 18:47 12/29/20 20:00 Ondansetron 4 Mg/2 Ml Sdv IVPUSH 12/29/20 18:48 4 mg ONETIME ONE Administration Sodium Polystyrene Sulfonate 15 gm 01/01/21 17:04 01/01/21 17:33 Sodium Polystyrene Sulfonate 15 Gm/60 Ml Susp 60 Ml Bot PO 01/01/21 17:05 15 gm ONETIME ONE Administration Warfarin Sodium 0 each 12/30/20 18:00 12/30/20 18:00 Warfarin Sliding Scale PO 12/30/20 18:01 Not Given QPM [facility] Warfarin Sodium 0 each 12/31/20 18:00 12/31/20 17:30 Warfarin Sliding Scale PO 12/31/20 18:01 Not Given QPM [facility] Warfarin Sodium 2.5 mg 01/01/21 18:00 01/01/21 17:34 Warfarin 2.5 Mg Tab PO 01/01/21 18:01 2.5 mg QPM [facility] Administration - Re-Assessments/Exams Free Text/Narrative Re-Assessment/Exam: 12/29/20 18:47 Patient states she continues to feel nauseated. We will medicate her with Zofran 4 mg IV. Expiratory wheezes noted bilaterally. Will order an albuterol nebulizer treatment for the patient. Departure - Departure Time of Disposition: 20:15 Disposition: Admitted As Inpatient 67 Condition: Good Clinical Impression: COVID-19, Weakness generalized - Discharge Information Sepsis Event Note (ED) - Evaluation Sepsis Screening Result: No Definite Risk
[2020-12-29] MEDS ORDERED: Albuterol 0.083% 2.5 MG/3 ML Neb Soln NEB ONE (18:43)
[2020-12-29] MEDS ORDERED: Sodium Chloride 0.9% 10 ML Syringe FLUSH PRN (18:43)
[2020-12-29] MEDS ORDERED: Ondansetron 4 MG/2 ML SDV IVPUSH ONE (18:47)
[2020-12-29] MEDS ORDERED: Acetaminophen 325 MG Tab PO PRN (20:26)
[2020-12-29] MEDS ORDERED: Albuterol 0.083% 2.5 MG/3 ML Neb Soln NEB PRN (20:26)
[2020-12-29] MEDS ORDERED: Ondansetron 4 MG/2 ML SDV IV PRN (20:26)
[2020-12-29] MEDS ORDERED: Albuterol/Ipratropium 3.0-0.5 MG/3 ML Neb Soln NEB PRN (20:26)
[2020-12-29] MEDS: Dexamethasone 4 MG Tab PO SCH (21:10)
[2020-12-30] MEDS ORDERED: Polyethylene Glycol 3350 Powder 17 GM Packet PO PRN (08:15)
[2020-12-30] MEDS ORDERED: Albuterol/Ipratropium 3.0-0.5 MG/3 ML Neb Soln INH PRN (08:15)
[2020-12-30] MEDS ORDERED: Ondansetron 4 MG Tab.DIS PO PRN (08:15)
[2020-12-30] MEDS ORDERED: Albuterol 6.7 GM Inhaler INH PRN (08:15)
[2020-12-30] MEDS ORDERED: Calcium Carbonate 500 MG Tab.Chew PO PRN (08:15)
[2020-12-30] MEDS ORDERED: Nitroglycerin 0.4 MG Tab.SL SL PRN (08:15)
--- NOTE | 2020-12-30 08:56 | PCM.HP.2 ---
H&P History of Present Illness - General Date of Service: 12/30/20 Admit Problem/Dx: Admission Diagnosis/Problem Admission Diagnosis/Problem Weakness Source of Information: Patient, Old Records, Provider, RN, RN Notes Reviewed History Limitations: Reports: No Limitations - History of Present Illness Initial Comments - Free Text/Narative: This is a 80-year-old female who presents to ED on the morning of 12/29/2020 with fever, chills, nausea, vomiting, diarrhea, generalized body aches, headache, decreased appetite cough, and pleuritic chest pain. She reports symptoms began on December 22, 2020 and she tested positive for Covid that day. She reports she has had both of her Covid vaccines however she has not had her booster. She reports she was a 2 to 3 pack a day smoker for 15 years however she did quit approximately 15 years ago. In the ED twelve-lead EKG was obtained showing a sinus rhythm at 61 bpm with a probable anterior infarct, which is likely old. Temperature was 97.8 F. Pulse 65. Respirations 25. Blood pressure 169/91. Pulse ox 94% on room air. Labs are obtained showing a mild leukocytosis of 11.58. Hemoglobin is 12.9. Platelet are 148,000. Neutrophils are elevated at 79.3%. D-dimer 0.46. Sodium is low at 132. Potassium 4.3. Chloride 98. Carbon dioxide 26. Anion gap 12.3. BUN is 22. Creatinine 1.5. GFR 33. Glucose 92. Calcium 8.8. Magnesium 1.8. Total bilirubin 0.3. AST is 44, ALT 41, alkaline phosphatase 53. CRP is 16.9. Protein is 6.1. Albumin is 2.5. UA is obtained and is negative however 2+ protein, trace lysed occult blood, 5-10 urine RBCs are noted. Chest x-ray is obtained showing a slight parenchymal density within the right lateral costophrenic angle and a minimal density within the left lung base. Slight density is noted within the right upper lung. Heart size appears prominent. Tortuous thoracic aorta is seen. She was given AVM liver biopsy infusion and discharged back to [facility]. Shortly thereafter patient return via [facility] after she was evaluated by [facility] staff who stated she was too weak for their facility. She was somewhat nauseated and was given Zofran. She is also noted to have expiratory wheezing and was given a nebulizer treatment. Oxygen saturations remained 94% on room air. She was subsequently admitted to the medical floor for management of her COVID-19 pneumonia and generalized weakness. She carries a history of angina, arrhythmias, prior VTE, CAD, heart failure, HLD, hypertension, prior stent placement, asthma, COPD, recurrent pneumonia, chronic constipation, GERD, IBS, CKD stage III, arthritis, chronic back pain, gout, CVA, diabetic neuropathy, anxiety, depression, type II DM, and is on chronic warfarin therapy. She has a DNR/DNI. Her primary care provider is Dr. Owens. - Related Data Allergies/Adverse Reactions: Allergies Allergy/AdvReac Type Severity Reaction Status Date / Time Penicillins Allergy Severe Swelling Verified 12/29/20 21:07 latex Allergy Intermediate Rash Verified 12/29/20 21:07 pineapple Allergy Intermediate Rash Verified 12/29/20 21:07 Home Medications: Home Meds Furosemide 40 mg PO DAILY 10/16/18 [History] Nitroglycerin 0.4 mg PO Q5M PRN MDD 3 doses 10/16/18 [History] Pantoprazole [ProTONIX] 40 mg PO DAILY 10/16/18 [History] Potassium Chloride 20 meq PO DAILY 10/16/18 [History] Sertraline [Zoloft] 50 mg PO BEDTIME 10/16/18 [History] allopurinoL [Zyloprim] 300 mg PO BEDTIME 10/16/18 [History] Albuterol [Ventolin HFA] 2 puff INH BID PRN 11/20/19 [History] Rosuvastatin Calcium [Crestor] 40 mg PO BEDTIME 11/20/19 [History] lisinopriL [Lisinopril] 20 mg PO DAILY 11/20/19 [History] Warfarin [Coumadin] 2.5 mg PO ASDIRECTED 02/22/20 [History] Warfarin [Coumadin] 5 mg PO MOFR 02/22/20 [History] Fluticasone Propionate [Flovent HFA 220 MCG] 1 puff PO BID 04/14/20 [History] Ascorbic Acid [Vitamin C] 250 mg PO DAILY 08/31/20 [History] Ferrous Sulfate 325 mg PO MOWEFR 08/31/20 [History] Olopatadine HCl [Pataday] 1 drop EYEBOTH BID 08/31/20 [History] polyethylene glycoL 3350 [MiraLAX] 17 gm PO DAILY PRN 08/31/20 [History] Acetaminophen 1,000 mg PO Q6HR PRN 12/30/20 [History] Calcium Carbonate [Tums] 200 mg PO Q3HR PRN 12/30/20 [History] Cholecalciferol (Vitamin D3) [Vitamin D3] 25 mcg PO DAILY 12/30/20 [History] Guar Gum [Benefiber] 2 tsp PO TID 12/30/20 [History] Hydrocodone/Acetaminophen [HYDROcodone-Acetaminophen 5-325 MG] 1 tab PO Q6HR PRN 12/30/20 [History] Ipratropium/Albuterol Sulfate [Iprat-Albut 0.5-3(2.5) mg/3 ml] 1 inh INH BID PRN 12/30/20 [History] Mometasone Furoate [Nasonex [place]] 1 spray CONRAD BID 12/30/20 [History] Ondansetron [Zofran ODT] 4 mg PO Q4HR PRN 12/30/20 [History] Sennosides/Docusate Sodium [Senna Plus 8.6-50 mg Softgel] 1 tab PO DAILY 12/30/20 [History] Past Medical History HEENT History: Reports: Cataract, Impaired Vision, Other (See Below) Other HEENT History: wears eyeglasses Cardiovascular History: Reports: Angina, Arrhythmia, Blood Clots/VTE/DVT, CAD, Heart Failure, High Cholesterol, Hypertension, Stents Other Cardiovascular History: carotid artery disease, ventricular bigeminy, bradycardia, hypotension Respiratory History: Reports: Asthma, COPD, Pneumonia, Recurrent, Other (See Below) Other Respiratory History: no home O2 Gastrointestinal History: Reports: Chronic Constipation, GERD, GI Bleed, Hemorrhoids, Hiatal Hernia, Irritable Bowel Syndrome Genitourinary History: Reports: Chronic Renal Insuffiency Other Genitourinary History: renal disease, CKD III 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: Other OB/BYN History: hysterectomy Musculoskeletal History: Reports: Arthritis, Back Pain, Chronic, Gout, Osteoarthritis, Osteoporosis Other Musculoskeletal History: Left sided sciatica, plantar fascia syndrome Neurological History: Reports: CVA, Neuropathy, Diabetic Other Neuro History: dizziness Psychiatric History: Reports: Anxiety, Depression Endocrine/Metabolic History: Reports: Diabetes, Type II, Obesity/BMI 30+ Hematologic History: Reports: Anemia, Anticoagulation Therapy, Blood Transfusion(s), Iron Deficiency Other Hematologic History: hypercalcemia, hyperkalemia Immunologic History: Reports: None Oncologic (Cancer) History: Reports: None Dermatologic History: Reports: Eczema Other Dermatologic History: eczema - Infectious Disease History Infectious Disease History: Reports: Influenza, Measles, Mumps, Novel Coronavirus, RSV - Past Surgical History Head Surgeries/Procedures: Reports: None HEENT Surgical History: Reports: Cataract Surgery Cardiovascular Surgical History: Reports: Coronary Artery Stent, Percutaneous Transluminal Angioplasty Other Cardiovascular Surgeries/Procedures: Doctors have been keeping an eye on her left and right carotid Respiratory Surgical History: Reports: None GI Surgical History: Reports: Colonoscopy, Hernia Repair/Other, Other (See Below) Other GI Surgeries/Procedures: hemorrhoid banding, hemorrhoidectomy Female Surgical History: Reports: Hysterectomy Other Female Surgeries/Procedures: Endocrine Surgical History: Reports: None Neurological Surgical History: Reports: None Musculoskeletal Surgical History: Reports: Carpal Tunnel Oncologic Surgical History: Reports: None Social & Family History - Family History Family Medical History: No Pertinent Family History HEENT: Reports: Hearing Impairment Cardiac: Reports: High Cholesterol, Hypertension Respiratory: Reports: Asthma : Reports: Renal Disease/Insufficiency Musculoskeletal: Reports: Arthritis, Back pain, Chronic, Gout Neurological: Reports: Seizure Psychiatric: Reports: Schizophrenia Endocrine/Metabolic: Reports: Diabetes, Type I, Diabetes, type II, Obesity/MBI 30+ Dermatologic: Reports: Eczema Oncologic: Reports: Bone, Lung - Tobacco Use Tobacco Use Status *Q: Former Tobacco User Used Tobacco, but Quit: Yes Month/Year Tobacco Last Used: 1999 - Caffeine Use Caffeine Use: Reports: Coffee, Soda, Tea Other Caffeine Use: cup of coffee every morning Caffeine Use Comment: Drinks about 1 cup of coffee and 1-2 cups of iced tea a day. - Recreational Drug Use Recreational Drug Use: No - Living Situation & Occupation Living situation: Reports: , Alone Occupation: Retired H&P Review of Systems - Review of Systems: Review Of Systems: See Below General: Reports: No Symptoms, Weakness (greatly improved/resolved ). Denies: Fever, Chills, Malaise, Fatigue HEENT: Reports: No Symptoms. Denies: Headaches, Sore Throat Pulmonary: Reports: Cough. Denies: Shortness of Breath, Wheezing, Pleuritic Chest Pain, Sputum, Hemoptysis Cardiovascular: Denies: Chest Pain, Palpitations, Dyspnea on Exertion, Lightheadedness Gastrointestinal: Reports: No Symptoms. Denies: Abdominal Pain, Constipation, Diarrhea, Nausea, Vomiting Genitourinary: Reports: No Symptoms. Denies: Pain Musculoskeletal: Reports: No Symptoms Skin: Reports: No Symptoms. Denies: Cyanosis Psychiatric: Reports: No Symptoms. Denies: Confusion Neurological: Reports: No Symptoms. Denies: Confusion, Dizziness, Headache, Numbness, Pre-Existing Deficit, Seizure, Syncope, Tingling, Difficulty Walking, Weakness, Gait Disturbance Hematologic/Lymphatic: Reports: No Symptoms Immunologic: Reports: No Symptoms Exam - Exam Exam: See Below - Vital Signs Vital Signs: Last Vital Signs Temp 97.4 F 12/30/20 08:14 Pulse 55 L 12/30/20 08:14 Resp 18 12/30/20 08:14 BP 135/73 12/30/20 08:14 Pulse Ox 96 12/30/20 08:14 Weight: 164 lb 1.6 oz - Exam Quality Assessment: DVT Prophylaxis (warfarin ). No: Supplemental Oxygen, Urinary Catheter General: Alert, Oriented, Cooperative. No: Mild Distress HEENT: Conjunctiva Clear, EACs Clear, Hearing Intact, Mucosa Moist & [place], Posterior Pharynx Clear Neck: Supple, Trachea Midline Lungs: Clear to Auscultation, Normal Respiratory Effort Cardiovascular: Regular Rate, Regular Rhythm GI/Abdominal Exam: Normal Bowel Sounds, Soft, Non-Tender, No Distention (Female) Exam: Deferred Rectal (Female) Exam: Deferred Back Exam: Normal Inspection, Full Range of Motion Extremities: Normal Inspection, Normal Range of Motion, Non-Tender, No Pedal Edema, Normal Capillary Refill Skin: Warm, Dry, Intact Neurological: Cranial Nerves Intact (Grossly ) Neuro Extensive - Mental Status: Alert, Oriented x3, Normal Mood/Affect - Patient Data Lab Results Last 24 hrs: Laboratory Results - last 24 hr 12/29/20 12/30/20 12/30/20 Range/Units 00:30 06:15 06:15 WBC 8.69 (3.98-10.04) K/mm3 RBC 4.04 (3.98-5.22) M/mm3 Hgb 12.0 (11.2-15.7) gm/dl Hct 38.5 (34.1-44.9) % MCV 95.3 H (79.4-94.8) fl MCH 29.7 (25.6-32.2) pg MCHC 31.2 L (32.2-35.5) g/dl RDW Std Deviation 48.5 H (36.4-46.3) fL Plt Count 149 L (182-369) K/mm3 MPV 10.7 (9.4-12.3) fl Neut % (Auto) 89.2 H (34.0-71.1) % Lymph % (Auto) 8.7 L (19.3-51.7) % [place] % (Auto) 1.7 L (4.7-12.5) % Eos % (Auto) 0 L (0.7-5.8) Baso % (Auto) 0.1 (0.1-1.2) % Neut # (Auto) 7.74 H (1.56-6.13) K/mm3 Lymph # (Auto) 0.76 L (1.18-3.74) K/mm3 [place] # (Auto) 0.15 L (0.24-0.36) K/mm3 Eos # (Auto) 0.00 L (0.04-0.36) K/mm3 Baso # (Auto) 0.01 (0.01-0.08) K/mm3 PT 46.7 H D (9.7-12.0) SECONDS INR 4.46 D-Dimer, Quantitative 1.10 H (0.19-0.50) mg/L Sodium (136-145) mEq/L Potassium (3.5-5.1) mEq/L Chloride (98-107) mEq/L Carbon Dioxide (21-32) mEq/L Anion Gap (5-15) BUN (7-18) mg/dL Creatinine (0.55-1.02) mg/dL Est Cr Clr Drug Dosing mL/min Estimated GFR (MDRD) (>60) mL/min BUN/Creatinine Ratio (14-18) Glucose (70-99) mg/dL Calcium (8.5-10.1) mg/dL Phosphorus (2.6-4.7) mg/dL Magnesium (1.8-2.4) mg/dL Total Bilirubin (0.2-1.0) mg/dL AST (15-37) U/L ALT (14-59) U/L Alkaline Phosphatase (46-116) U/L C-Reactive Protein (<1.0) mg/dL Total Protein (6.4-8.2) g/dl Albumin (3.4-5.0) g/dl Globulin gm/dL Albumin/Globulin Ratio (1-2) MRSA (PCR) Negative 12/30/20 Range/Units 06:15 WBC (3.98-10.04) K/mm3 RBC (3.98-5.22) M/mm3 Hgb (11.2-15.7) gm/dl Hct (34.1-44.9) % MCV (79.4-94.8) fl MCH (25.6-32.2) pg MCHC (32.2-35.5) g/dl RDW Std Deviation (36.4-46.3) fL Plt Count (182-369) K/mm3 MPV (9.4-12.3) fl Neut % (Auto) (34.0-71.1) % Lymph % (Auto) (19.3-51.7) % [place] % (Auto) (4.7-12.5) % Eos % (Auto) (0.7-5.8) Baso % (Auto) (0.1-1.2) % Neut # (Auto) (1.56-6.13) K/mm3 Lymph # (Auto) (1.18-3.74) K/mm3 [place] # (Auto) (0.24-0.36) K/mm3 Eos # (Auto) (0.04-0.36) K/mm3 Baso # (Auto) (0.01-0.08) K/mm3 PT (9.7-12.0) SECONDS INR D-Dimer, Quantitative (0.19-0.50) mg/L Sodium 134 L (136-145) mEq/L Potassium 5.1 (3.5-5.1) mEq/L Chloride 102 (98-107) mEq/L Carbon Dioxide 25 (21-32) mEq/L Anion Gap 12.1 (5-15) BUN 22 H (7-18) mg/dL Creatinine 1.5 H (0.55-1.02) mg/dL Est Cr Clr Drug Dosing 25.16 mL/min Estimated GFR (MDRD) 33 (>60) mL/min BUN/Creatinine Ratio 14.7 (14-18) Glucose 169 H (70-99) mg/dL Calcium 8.5 (8.5-10.1) mg/dL Phosphorus 3.0 (2.6-4.7) mg/dL Magnesium 2.0 (1.8-2.4) mg/dL Total Bilirubin 0.2 (0.2-1.0) mg/dL AST 33 (15-37) U/L ALT 36 (14-59) U/L Alkaline Phosphatase 54 (46-116) U/L C-Reactive Protein 19.0 H* (<1.0) mg/dL Total Protein 5.7 L (6.4-8.2) g/dl Albumin 2.2 L (3.4-5.0) g/dl Globulin 3.5 gm/dL Albumin/Globulin Ratio 0.6 L (1-2) MRSA (PCR) Result Diagrams: 12/30/20 06:15 12/30/20 06:15 Sepsis Event Note - Evaluation Sepsis Screening Result: No Definite Risk - Focused Exam Vital Signs: Vital Signs Temp Temp Pulse Pulse Resp BP BP 12/30/20 08:14 97.4 F 55 L 18 135/73 12/30/20 04:35 98.2 F 66 20 12/30/20 03:21 68 12/30/20 03:04 97.9 F 20 147/52 H 12/30/20 00:16 12/30/20 00:02 98.2 F 20 131/69 Pulse Ox 12/30/20 08:14 96 12/30/20 04:35 98 12/30/20 03:21 12/30/20 03:04 96 12/30/20 00:16 94 L 12/30/20 00:02 - Problem List (1) History of angina SNOMED Code(s): 919543356 ICD Code: Z86.79 - PERSONAL HISTORY OF OTHER DISEASES OF THE CIRCULATORY SYSTEM Status: Chronic Priority: Low Current Visit: No (2) History of cardiac arrhythmia SNOMED Code(s): 359320239551258 ICD Code: Z86.79 - PERSONAL HISTORY OF OTHER DISEASES OF THE CIRCULATORY SYSTEM Status: Chronic Priority: Low Current Visit: No (3) History of venous thromboembolism SNOMED Code(s): 123109246 ICD Code: Z86.718 - PERSONAL HISTORY OF OTHER VENOUS THROMBOSIS AND EMBOLISM Status: Chronic Priority: Medium Current Visit: No (4) CAD (coronary artery disease) SNOMED Code(s): 54329069 ICD Code: I25.10 - ATHSCL HEART DISEASE OF [place] CORONARY ARTERY W/O ANG PCTRS Status: Chronic Priority: Medium Current Visit: No Qualifiers: Coronary Disease-Associated Artery/Lesion type: unspecified vessel or lesion type [place] vs. transplanted heart: [place] heart Associated angina: unspecified whether angina present Qualified Code(s): I25.10 - Atherosclerotic heart disease of [place] coronary artery without angina pectoris (5) HLD (hyperlipidemia) SNOMED Code(s): 00744577 ICD Code: E78.5 - HYPERLIPIDEMIA, UNSPECIFIED Status: Chronic Priority: Low Current Visit: No Qualifiers: Hyperlipidemia type: unspecified Qualified Code(s): E78.5 - Hyperlipidemia, unspecified (6) HTN (hypertension) SNOMED Code(s): 80990247 ICD Code: I10 - ESSENTIAL (PRIMARY) HYPERTENSION Status: Chronic Priority: Medium Current Visit: No Qualifiers: Hypertension type: unspecified Qualified Code(s): I10 - Essential (primary) hypertension (7) H/O heart artery stent SNOMED Code(s): 579063720, 242232894 ICD Code: Z95.5 - PRESENCE OF CORONARY ANGIOPLASTY IMPLANT AND GRAFT Status: Chronic Priority: Low Current Visit: No (8) Asthma SNOMED Code(s): 836036772 ICD Code: J45.909 - UNSPECIFIED ASTHMA, UNCOMPLICATED Status: Chronic Priority: Medium Current Visit: No Qualifiers: Asthma severity: unspecified severity Asthma persistence: unspecified Asthma complication type: unspecified Qualified Code(s): J45.909 - Unspecified asthma, uncomplicated (9) COPD (chronic obstructive pulmonary disease) SNOMED Code(s): 47462212 ICD Code: J44.9 - CHRONIC OBSTRUCTIVE PULMONARY DISEASE, UNSPECIFIED Status: Chronic Priority: Medium Current Visit: No Qualifiers: COPD type: unspecified COPD Qualified Code(s): J44.9 - Chronic obstructive pulmonary disease, unspecified (10) Recurrent pneumonia SNOMED Code(s): 033520822 ICD Code: J18.9 - PNEUMONIA, UNSPECIFIED ORGANISM Status: Chronic Priority: Medium Current Visit: No (11) Chronic constipation SNOMED Code(s): 481966788 ICD Code: K59.09 - OTHER CONSTIPATION Status: Chronic Priority: Low Current Visit: No (12) GERD (gastroesophageal reflux disease) SNOMED Code(s): 355665856 ICD Code: K21.9 - GASTRO-ESOPHAGEAL REFLUX DISEASE WITHOUT ESOPHAGITIS Status: Chronic Priority: Low Current Visit: No Qualifiers: Esophagitis presence: esophagitis presence not specified Qualified Code(s): K21.9 - Gastro-esophageal reflux disease without esophagitis (13) IBS (irritable bowel syndrome) SNOMED Code(s): 49085623 ICD Code: K58.9 - IRRITABLE BOWEL SYNDROME WITHOUT DIARRHEA Status: Chronic Priority: Low Current Visit: No Qualifiers: Irritable bowel syndrome type: unspecified Qualified Code(s): K58.9 - Irritable bowel syndrome without diarrhea (14) Arthritis SNOMED Code(s): 5300398 ICD Code: M19.90 - UNSPECIFIED OSTEOARTHRITIS, UNSPECIFIED SITE Status: Chronic Priority: Low Current Visit: No (15) Chronic back pain SNOMED Code(s): 974090202 ICD Code: M54.9 - DORSALGIA, UNSPECIFIED; G89.29 - OTHER CHRONIC PAIN Status: Chronic Priority: Low Current Visit: No Qualifiers: Back pain location: back pain in unspecified location Back pain laterality: unspecified Qualified Code(s): M54.9 - Dorsalgia, unspecified; G89.29 - Other chronic pain (16) Gout SNOMED Code(s): 36447653 ICD Code: M10.9 - GOUT, UNSPECIFIED Status: Chronic Priority: Low Current Visit: No Qualifiers: Gout site: unspecified site Gout etiology: unspecified cause Chronicity: chronic Presence of tophus: without tophus Qualified Code(s): M1A.9XX0 - Chronic gout, unspecified, without tophus (tophi) (17) History of CVA (cerebrovascular accident) SNOMED Code(s): 322306445 ICD Code: Z86.73 - PRSNL HX OF TIA (TIA), AND CEREB INFRC W/O RESID DEFICITS Status: Chronic Priority: Low Current Visit: No (18) Diabetic neuropathy SNOMED Code(s): 123229281, 221754093, 751305398 ICD Code: E11.40 - TYPE 2 DIABETES MELLITUS WITH DIABETIC NEUROPATHY, UNSP Status: Chronic Priority: Low Current Visit: No Qualifiers: Diabetes mellitus type: type 2 Diabetes mellitus complication detail: with other neurological complication Qualified Code(s): E11.49 - Type 2 diabetes mellitus with other diabetic neurological complication (19) Anxiety SNOMED Code(s): 73306949 ICD Code: F41.9 - ANXIETY DISORDER, UNSPECIFIED Status: Chronic Priority: Low Current Visit: No (20) Depression SNOMED Code(s): 28374969 ICD Code: F32.A - DEPRESSION, UNSPECIFIED Status: Chronic Priority: Low Current Visit: No Qualifiers: Depression Type: other depression Qualified Code(s): F32.89 - Other specified depressive episodes (21) Type II diabetes mellitus SNOMED Code(s): 98879071 ICD Code: E11.9 - TYPE 2 DIABETES MELLITUS WITHOUT COMPLICATIONS Status: Chronic Priority: Medium Current Visit: Yes Qualifiers: Diabetes mellitus senior care insulin use: without senior care use Diabetes mellitus complication status: with other specified complication Qualified Code(s): E11.69 - Type 2 diabetes mellitus with other specified complication (22) Chronic anticoagulation SNOMED Code(s): 731300377 ICD Code: 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 Status: Chronic Priority: Medium Current Visit: Yes (23) COVID-19 vaccine series completed SNOMED Code(s): 342290044, 464868099 ICD Code: Z92.29 - PERSONAL HISTORY OF OTHER DRUG THERAPY Status: Chronic Priority: Medium Current Visit: Yes (24) COVID-19 SNOMED Code(s): 302463650 ICD Code: U07.1 - COVID-19 Status: Acute Priority: High Current Visit: Yes (25) Weakness generalized SNOMED Code(s): 83446223 ICD Code: R53.1 - WEAKNESS Status: Acute Priority: High Current Visit: Yes (26) COPD (chronic obstructive pulmonary disease) with acute bronchitis SNOMED Code(s): 781851479292650 ICD Code: J44.0 - CHR OBSTRUCTIVE PULMON DISEASE WITH (ACUTE) LOWER RESP INFCT; J20.9 - ACUTE BRONCHITIS, UNSPECIFIED Status: Chronic Priority: Medium Current Visit: Yes (27) Chronic renal insufficiency SNOMED Code(s): 802119145 ICD Code: N18.9 - CHRONIC KIDNEY DISEASE, UNSPECIFIED Status: Chronic Priority: Medium Current Visit: No Qualifiers: Chronic kidney disease stage: stage 3 (moderate) Chronic kidney disease stage 3 subtype: stage 3b (GFR 30-44) Qualified Code(s): N18.32 - Chronic kidney disease, stage 3b (28) Congestive heart failure SNOMED Code(s): 68290240 ICD Code: I50.9 - HEART FAILURE, UNSPECIFIED Status: Acute Current Visit: No Qualifiers: Heart failure type: unspecified Heart failure chronicity: acute on chronic Qualified Code(s): I50.9 - Heart failure, unspecified (29) Hypoxia SNOMED Code(s): 705251198 ICD Code: R09.02 - HYPOXEMIA Status: Resolved Priority: High Current Visit: Yes (30) Low back pain SNOMED Code(s): 176940955 ICD Code: M54.5 - LOW BACK PAIN * DO NOT USE * Status: Chronic Priority: Low Current Visit: No Qualifiers: Chronicity: chronic Back pain laterality: left Sciatica presence: with sciatica Sciatica laterality: sciatica of left side Qualified Code(s): M54.42 - Lumbago with sciatica, left side; G89.29 - Other chronic pain Problem List Initiated/Reviewed/Updated: Yes Orders Last 24hrs: Active Orders 24 hr Category Date Time Status Admission Status [Patient Status] [ADT] Routine ADT 12/29/20 18:48 Active Cardiac Monitoring [RC] . DIRECTED Care 12/29/20 18:48 Active Oxygen Therapy [RC] PRN Care 12/29/20 20:26 Active Positioning, Patient [RC] ASDIRECTED Care 12/29/20 20:28 Active RT Aerosol Therapy [RC] ASDIRECTED Care 12/29/20 18:44 Active RT Aerosol Therapy [RC] ASDIRECTED Care 12/30/20 08:17 Active Up With Assistance [RC] ASDIRECTED Care 12/29/20 20:26 Active VTE/DVT Education [RC] PER UNIT ROUTINE Care 12/29/20 20:26 Active Vital Signs [RC] Q4HR Care 12/29/20 20:26 Active OT Evaluation and Treatment [CONS] Routine Cons 12/29/20 19:58 Active PT Evaluation and Treatment [CONS] Routine Cons 12/29/20 19:58 Active Regular Diet [DIET] Diet 12/30/20 Breakfast Active CBC WITH AUTO DIFF [HEME] AM Lab 12/30/20 06:15 Results INR,PT,PROTHROMBIN TIME [COAG] AM Lab 12/31/20 05:11 Ordered INR,PT,PROTHROMBIN TIME [COAG] AM Lab 01/01/21 05:11 Ordered INR,PT,PROTHROMBIN TIME [COAG] AM Lab 01/02/21 05:11 Ordered PROCALCITONIN [REF] AM Lab 12/30/20 06:15 Received Acetaminophen [TylenoL] Med 12/29/20 20:26 Active 650 mg PO Q4H PRN Albuterol [Proventil HFA] Med 12/30/20 08:15 Active 0 gm INH BID PRN Albuterol [Proventil Neb Soln] Med 12/29/20 20:26 Active 2.5 mg NEB Q2H PRN Albuterol/Ipratropium [DuoNeb 3.0-0.5 MG/3 ML] Med 12/29/20 20:26 Active 3 ml NEB Q4H PRN Ascorbic Acid [Vitamin C] Med 12/30/20 09:00 Active 250 mg PO DAILY Calcium Carbonate [Tums] Med 12/30/20 08:15 Active 500 mg PO Q3H PRN Cholecalciferol (Vitamin D3) [Vitamin D3] Med 12/30/20 09:00 Active 25 mcg PO DAILY Ferrous Sulfate Med 12/31/20 09:00 Active 324 mg PO MOWEFR Nitroglycerin [Nitrostat] Med 12/30/20 08:15 Active 0.4 mg SL Q5M PRN Olopatadine HCl Med 12/30/20 09:00 Active 1 drop EYEBOTH BID Ondansetron [Zofran ODT] Med 12/30/20 08:15 Active 4 mg PO Q4H PRN Ondansetron [Zofran] Med 12/29/20 20:26 Active 4 mg IV Q6H PRN Pantoprazole [ProTONIX] Med 12/30/20 09:00 Active 40 mg PO DAILY Pharmacy to Dose - Warfarin Med 12/30/20 08:30 Active 1 dose .XX ASDIRECTED PRN Rosuvastatin [Crestor] Med 12/30/20 21:00 Active 40 mg PO BEDTIME Sertraline [Zoloft] Med 12/30/20 21:00 Active 50 mg PO BEDTIME Sodium Chloride 0.9% [Saline Flush] Med 12/29/20 18:43 Active 10 ml FLUSH ASDIRECTED PRN Warfarin Sliding Scale [Coumadin Sliding Scale] Med 12/30/20 18:00 Active 0 each PO QPM allopurinoL [Zyloprim] Med 12/30/20 21:00 Active 300 mg PO BEDTIME dexAMETHasone Med 12/29/20 20:30 Active 6 mg PO DAILY polyethylene glycoL 3350 [MiraLAX] Med 12/30/20 08:15 Active 17 gm PO DAILY PRN Saline Lock Insert [OM.PC] Stat Oth 12/29/20 18:43 Ordered Resuscitation Status Routine Resus Stat 12/29/20 21:09 Ordered Medication Orders Acetaminophen (Acetaminophen 325 Mg Tab) 650 mg PO Q4H PRN PRN Reason: Pain (Mild 1-3)/fever Albuterol (Albuterol 0.083% 2.5 Mg/3 Ml Neb Soln) 2.5 mg NEB Q2H PRN PRN Reason: Shortness Of Breath/wheezing Albuterol (Albuterol 6.7 Gm Inhaler) 0 gm INH BID PRN PRN Reason: Shortness of Breath Albuterol/Ipratropium (Albuterol/Ipratropium 3.0-0.5 Mg/3 Ml Neb Soln) 3 ml NEB Q4H PRN PRN Reason: Shortness Of Breath/wheezing Allopurinol (Allopurinol 300 Mg Tab) 300 mg PO BEDTIME [facility] Ascorbic Acid (Ascorbic Acid 500 Mg Tab) 250 mg PO DAILY [facility] Calcium Carbonate/Glycine (Calcium Carbonate 500 Mg Tab.Chew) 500 mg PO Q3H PRN PRN Reason: Indigestion Cholecalciferol (Cholecalciferol (Vitamin D3) 25 Mcg Tab) 25 mcg PO DAILY [facility] Dexamethasone (Dexamethasone 4 Mg Tab) 6 mg PO DAILY [facility] Stop: 01/07/21 09:01 Last Admin: 12/29/20 21:10 Dose: 6 mg Documented by: JERAMY Ferrous Sulfate (Ferrous Sulfate 324 Mg Tab.Ec) 324 mg PO MOWEFR [facility] Nitroglycerin (Nitroglycerin 0.4 Mg Tab.Sl) 0.4 mg SL Q5M PRN PRN Reason: Chest Pain Olopatadine Hcl 2.5 (Ml Drops Ptom) 1 drop EYEBOTH BID [facility] Ondansetron HCl (Ondansetron 4 Mg/2 Ml Sdv) 4 mg IV Q6H PRN PRN Reason: Nausea/Vomiting Ondansetron HCl (Ondansetron 4 Mg Tab.Dis) 4 mg PO Q4H PRN PRN Reason: Nausea Pantoprazole Sodium (Pantoprazole 40 Mg Tab.Cr) 40 mg PO DAILY [facility] Polyethylene Glycol (Polyethylene Glycol 3350 Powder 17 Gm Packet) 17 gm PO DAILY PRN PRN Reason: Constipation Rosuvastatin Calcium (Rosuvastatin 10 Mg Tab) 40 mg PO BEDTIME [facility] Sertraline HCl (Sertraline 50 Mg Tab) 50 mg PO BEDTIME [facility] Sodium Chloride (Sodium Chloride 0.9% 10 Ml Syringe) 10 ml FLUSH ASDIRECTED PRN PRN Reason: Keep Vein Open Last Admin: 12/29/20 19:35 Dose: 10 ml Documented by: DULCE Warfarin Sodium (Pharmacy To Dose - Warfarin) 1 dose .XX ASDIRECTED PRN PRN Reason: RX TO DOSE WARFARIN Warfarin Sodium (Warfarin Sliding Scale) 0 each PO QPM [facility] Stop: 12/30/20 18:01 Assessment/Plan Comment:: Weakness generalized Low back pain Arthritis Chronic back pain Gout * Home medications as ordered * PT/OT * Case management/social work consultation COVID-19 COVID-19 vaccine series completed COPD (chronic obstructive pulmonary disease) with acute bronchitis Hypoxia, resolved * Received Bamlanivimab in ED * Dexamethasone 6 mg PO for 10 days * O2 as needed to keep saturation between 88 and 95% * I-S/Acapella * RT consultation * Airborne/contact precautions * Telemetry * Continuous pulse oximetry * As needed albuterol MDI * As needed albuterol nebulizer * As needed DuoNeb * Zinc supplementation * Daily lab checks History of angina History of cardiac arrhythmia History of venous thromboembolism CAD (coronary artery disease) Congestive Heart failure HLD (hyperlipidemia) HTN (hypertension) H/O heart artery stent Chronic anticoagulation History of CVA (cerebrovascular accident) * No acute concerns * Home medications as ordered * Daily INR check * Pharmacy to dose warfarin * Telemetry Asthma COPD (chronic obstructive pulmonary disease) Recurrent pneumonia * No acute concerns * Home respiratory meds as ordered * RT consultation * Other treatments as above Chronic constipation * No acute concerns * As needed laxatives/stool softeners GERD (gastroesophageal reflux disease) IBS (irritable bowel syndrome) * No acute concerns * Home medications as ordered Anxiety Depression * No acute concerns * Home medications as ordered Type II diabetes mellitus Diabetic neuropathy * A1c obtained 6.5% * 4 times daily before meals and bedtime glucose checks * Low-dose sliding scale insulin * Consistent carbohydrate diet Chronic renal insufficiency * No acute concerns - patient appears at baseline * Avoid nephrotoxic medications if possible Code status: DNR/DNI PCP: Dr. Robins DVT Prophylaxis: Home warfarin with pharmacy to dose Social: Patient resides at [facility] Disposition: Patient mated to the medical floor for management of COVID-19 symptoms and generalized weakness. Likely discharge in 1 to 2 days pending willi nguyễn. - Mortality Measure Prognosis:: Good
[2020-12-30] MEDS ORDERED: EYE EYEBOTH SCH (09:00)
[2020-12-30] MEDS ORDERED: OLOPATADINE HCL 0.1% EYEBOTH SCH (09:00)
[2020-12-30] MEDS: Cholecalciferol (Vitamin D3) 25 MCG Tab PO SCH (09:41)
[2020-12-30] MEDS: Pantoprazole 40 MG Tab.CR PO SCH (09:41)
[2020-12-30] MEDS: Zinc Sulfate 220 MG Cap PO SCH (09:41)
[2020-12-30] MEDS: Dexamethasone 4 MG Tab PO SCH (09:41)
[2020-12-30] MEDS: Ascorbic Acid 500 MG Tab PO SCH (09:41)
[2020-12-30 13:02] LABS: HEMOGLOBIN A1C 6.5 %
[2020-12-30] MEDS: EYE EYEBOTH SCH ×2 (13:30→20:06)
[2020-12-30] MEDS: OLOPATADINE HCL 0.1% EYEBOTH SCH ×2 (13:30→20:06)
[2020-12-30] MEDS: Insulin Lispro 100 Unit/ML 3 ML KwikPen SUBCUT SCH ×2 (17:58→21:46)
[2020-12-30] MEDS ORDERED: Warfarin Sliding Scale PO SCH (18:00)
[2020-12-30] MEDS: Allopurinol 300 MG Tab PO SCH (20:06)
[2020-12-30] MEDS: Rosuvastatin 10 MG Tab PO SCH (20:06)
[2020-12-30] MEDS: Sertraline 50 MG Tab PO SCH (20:07)
--- NOTE | 2020-12-31 06:49 | PCM.PN ---
- General Info Date of Service: 12/31/20 Admission Dx/Problem (Free Text): Admission Diagnosis/Problem Admission Diagnosis/Problem Weakness Functional Status: Reports: Pain Controlled, Tolerating Diet, Ambulating, Urinating, Incentive Spirometry. Denies: New Symptoms - Review of Systems General: Reports: No Symptoms. Denies: Fever, Weakness, Fatigue, Malaise, Chills HEENT: Reports: No Symptoms. Denies: Headaches, Sore Throat Pulmonary: Reports: No Symptoms. Denies: Shortness of Breath, Cough, Sputum, Wheezing Cardiovascular: Reports: No Symptoms. Denies: Chest Pain, Palpitations, Dyspnea on Exertion, Edema Gastrointestinal: Reports: No Symptoms. Denies: Abdominal Pain, Constipation, Difficulty Swallowing, Nausea, Vomiting Genitourinary: Reports: No Symptoms. Denies: Pain Musculoskeletal: Reports: No Symptoms Skin: Reports: No Symptoms. Denies: Cyanosis Neurological: Reports: No Symptoms. Denies: Confusion, Dizziness, Headache, Numbness, Tingling, Difficulty Walking, Weakness, Gait Disturbance Psychiatric: Reports: No Symptoms - Patient Data Vitals - Most Recent: Last Vital Signs Temp 96.4 F L 12/31/20 02:58 Pulse 91 12/31/20 02:58 Resp 20 12/31/20 02:58 BP 138/62 12/31/20 02:58 Pulse Ox 94 L 12/31/20 02:58 Weight - Most Recent: 163 lb 14.4 oz I&O - Last 24 Hours: Intake & Output 12/30/20 12/30/20 12/31/20 14:59 22:59 06:59 Intake Total 920 500 Output Total 600 550 Balance 320 -50 Lab Results Last 24 Hours: Laboratory Results - last 24 hr 12/30/20 12/30/20 12/30/20 Range/Units 06:15 06:15 06:15 WBC 8.69 (3.98-10.04) K/mm3 RBC 4.04 (3.98-5.22) M/mm3 Hgb 12.0 (11.2-15.7) gm/dl Hct 38.5 (34.1-44.9) % MCV 95.3 H (79.4-94.8) fl MCH 29.7 (25.6-32.2) pg MCHC 31.2 L (32.2-35.5) g/dl RDW Std Deviation 48.5 H (36.4-46.3) fL Plt Count 149 L (182-369) K/mm3 MPV 10.7 (9.4-12.3) fl Neut % (Auto) 89.2 H (34.0-71.1) % Lymph % (Auto) 8.7 L (19.3-51.7) % [place] % (Auto) 1.7 L (4.7-12.5) % Eos % (Auto) 0 L (0.7-5.8) Baso % (Auto) 0.1 (0.1-1.2) % Neut # (Auto) 7.74 H (1.56-6.13) K/mm3 Lymph # (Auto) 0.76 L (1.18-3.74) K/mm3 [place] # (Auto) 0.15 L (0.24-0.36) K/mm3 Eos # (Auto) 0.00 L (0.04-0.36) K/mm3 Baso # (Auto) 0.01 (0.01-0.08) K/mm3 Manual Slide Review Not Reportable PT 46.7 H D (9.7-12.0) SECONDS INR 4.46 D-Dimer, Quantitative 1.10 H (0.19-0.50) mg/L Sodium 134 L (136-145) mEq/L Potassium 5.1 (3.5-5.1) mEq/L Chloride 102 (98-107) mEq/L Carbon Dioxide 25 (21-32) mEq/L Anion Gap 12.1 (5-15) BUN 22 H (7-18) mg/dL Creatinine 1.5 H (0.55-1.02) mg/dL Est Cr Clr Drug Dosing 25.16 mL/min Estimated GFR (MDRD) 33 (>60) mL/min BUN/Creatinine Ratio 14.7 (14-18) Glucose 169 H (70-99) mg/dL POC Glucose (70-99) mg/dL Hemoglobin A1c ( - 5.6) % Calcium 8.5 (8.5-10.1) mg/dL Phosphorus 3.0 (2.6-4.7) mg/dL Magnesium 2.0 (1.8-2.4) mg/dL Total Bilirubin 0.2 (0.2-1.0) mg/dL AST 33 (15-37) U/L ALT 36 (14-59) U/L Alkaline Phosphatase 54 (46-116) U/L C-Reactive Protein 19.0 H* (<1.0) mg/dL Total Protein 5.7 L (6.4-8.2) g/dl Albumin 2.2 L (3.4-5.0) g/dl Globulin 3.5 gm/dL Albumin/Globulin Ratio 0.6 L (1-2) Vitamin D 25-Hydroxy (30.0-100.0) ng/ml Procalcitonin ng/mL 12/30/20 12/30/20 12/30/20 Range/Units 06:15 06:15 06:15 WBC (3.98-10.04) K/mm3 RBC (3.98-5.22) M/mm3 Hgb (11.2-15.7) gm/dl Hct (34.1-44.9) % MCV (79.4-94.8) fl MCH (25.6-32.2) pg MCHC (32.2-35.5) g/dl RDW Std Deviation (36.4-46.3) fL Plt Count (182-369) K/mm3 MPV (9.4-12.3) fl Neut % (Auto) (34.0-71.1) % Lymph % (Auto) (19.3-51.7) % [place] % (Auto) (4.7-12.5) % Eos % (Auto) (0.7-5.8) Baso % (Auto) (0.1-1.2) % Neut # (Auto) (1.56-6.13) K/mm3 Lymph # (Auto) (1.18-3.74) K/mm3 [place] # (Auto) (0.24-0.36) K/mm3 Eos # (Auto) (0.04-0.36) K/mm3 Baso # (Auto) (0.01-0.08) K/mm3 Manual Slide Review PT (9.7-12.0) SECONDS INR D-Dimer, Quantitative (0.19-0.50) mg/L Sodium (136-145) mEq/L Potassium (3.5-5.1) mEq/L Chloride (98-107) mEq/L Carbon Dioxide (21-32) mEq/L Anion Gap (5-15) BUN (7-18) mg/dL Creatinine (0.55-1.02) mg/dL Est Cr Clr Drug Dosing mL/min Estimated GFR (MDRD) (>60) mL/min BUN/Creatinine Ratio (14-18) Glucose (70-99) mg/dL POC Glucose (70-99) mg/dL Hemoglobin A1c 6.5 H ( - 5.6) % Calcium (8.5-10.1) mg/dL Phosphorus (2.6-4.7) mg/dL Magnesium (1.8-2.4) mg/dL Total Bilirubin (0.2-1.0) mg/dL AST (15-37) U/L ALT (14-59) U/L Alkaline Phosphatase (46-116) U/L C-Reactive Protein (<1.0) mg/dL Total Protein (6.4-8.2) g/dl Albumin (3.4-5.0) g/dl Globulin gm/dL Albumin/Globulin Ratio (1-2) Vitamin D 25-Hydroxy 44.9 (30.0-100.0) ng/ml Procalcitonin 0.52 H ng/mL 12/30/20 12/30/20 12/31/20 Range/Units 17:51 21:07 05:38 WBC (3.98-10.04) K/mm3 RBC (3.98-5.22) M/mm3 Hgb (11.2-15.7) gm/dl Hct (34.1-44.9) % MCV (79.4-94.8) fl MCH (25.6-32.2) pg MCHC (32.2-35.5) g/dl RDW Std Deviation (36.4-46.3) fL Plt Count (182-369) K/mm3 MPV (9.4-12.3) fl Neut % (Auto) (34.0-71.1) % Lymph % (Auto) (19.3-51.7) % [place] % (Auto) (4.7-12.5) % Eos % (Auto) (0.7-5.8) Baso % (Auto) (0.1-1.2) % Neut # (Auto) (1.56-6.13) K/mm3 Lymph # (Auto) (1.18-3.74) K/mm3 [place] # (Auto) (0.24-0.36) K/mm3 Eos # (Auto) (0.04-0.36) K/mm3 Baso # (Auto) (0.01-0.08) K/mm3 Manual Slide Review PT (9.7-12.0) SECONDS INR D-Dimer, Quantitative (0.19-0.50) mg/L Sodium (136-145) mEq/L Potassium (3.5-5.1) mEq/L Chloride (98-107) mEq/L Carbon Dioxide (21-32) mEq/L Anion Gap (5-15) BUN (7-18) mg/dL Creatinine (0.55-1.02) mg/dL Est Cr Clr Drug Dosing mL/min Estimated GFR (MDRD) (>60) mL/min BUN/Creatinine Ratio (14-18) Glucose (70-99) mg/dL POC Glucose 170 H 198 H 154 H (70-99) mg/dL Hemoglobin A1c ( - 5.6) % Calcium (8.5-10.1) mg/dL Phosphorus (2.6-4.7) mg/dL Magnesium (1.8-2.4) mg/dL Total Bilirubin (0.2-1.0) mg/dL AST (15-37) U/L ALT (14-59) U/L Alkaline Phosphatase (46-116) U/L C-Reactive Protein (<1.0) mg/dL Total Protein (6.4-8.2) g/dl Albumin (3.4-5.0) g/dl Globulin gm/dL Albumin/Globulin Ratio (1-2) Vitamin D 25-Hydroxy (30.0-100.0) ng/ml Procalcitonin ng/mL Med Orders - Current: Current Medications Acetaminophen (Acetaminophen 325 Mg Tab) 650 mg PO Q4H PRN PRN Reason: Pain (Mild 1-3)/fever Albuterol (Albuterol 0.083% 2.5 Mg/3 Ml Neb Soln) 2.5 mg NEB Q2H PRN PRN Reason: Shortness Of Breath/wheezing Albuterol (Albuterol 6.7 Gm Inhaler) 0 gm INH BID PRN PRN Reason: Shortness of Breath Albuterol/Ipratropium (Albuterol/Ipratropium 3.0-0.5 Mg/3 Ml Neb Soln) 3 ml NEB Q4H PRN PRN Reason: Shortness Of Breath/wheezing Allopurinol (Allopurinol 300 Mg Tab) 300 mg PO BEDTIME [facility] Last Admin: 12/30/20 20:06 Dose: 300 mg Documented by: Ascorbic Acid (Ascorbic Acid 500 Mg Tab) 250 mg PO DAILY [facility] Last Admin: 12/30/20 09:41 Dose: 250 mg Documented by: Calcium Carbonate/Glycine (Calcium Carbonate 500 Mg Tab.Chew) 500 mg PO Q3H PRN PRN Reason: Indigestion Cholecalciferol (Cholecalciferol (Vitamin D3) 25 Mcg Tab) 25 mcg PO DAILY [facility] Last Admin: 12/30/20 09:41 Dose: 25 mcg Documented by: Dexamethasone (Dexamethasone 4 Mg Tab) 6 mg PO DAILY [facility] Stop: 01/07/21 09:01 Last Admin: 12/30/20 09:41 Dose: 6 mg Documented by: Ferrous Sulfate (Ferrous Sulfate 324 Mg Tab.Ec) 324 mg PO MOWEFR [facility] Insulin Human Lispro (Insulin Lispro 100 Unit/Ml 3 Ml Kwikpen) 0 unit SUBCUT QIDACANDBED [facility]; Protocol Last Admin: 12/30/20 21:46 Dose: 1 unit Documented by: Nitroglycerin (Nitroglycerin 0.4 Mg Tab.Sl) 0.4 mg SL Q5M PRN PRN Reason: Chest Pain Olopatadine Hcl 0.1% (Eye Drops Ptom) 1 drop EYEBOTH BID [facility] Last Admin: 12/30/20 20:06 Dose: 1 drop Documented by: Ondansetron HCl (Ondansetron 4 Mg/2 Ml Sdv) 4 mg IV Q6H PRN PRN Reason: Nausea/Vomiting Ondansetron HCl (Ondansetron 4 Mg Tab.Dis) 4 mg PO Q4H PRN PRN Reason: Nausea Pantoprazole Sodium (Pantoprazole 40 Mg Tab.Cr) 40 mg PO DAILY [facility] Last Admin: 12/30/20 09:41 Dose: 40 mg Documented by: Polyethylene Glycol (Polyethylene Glycol 3350 Powder 17 Gm Packet) 17 gm PO DAILY PRN PRN Reason: Constipation Last Admin: 12/31/20 05:42 Dose: 17 gm Documented by: Rosuvastatin Calcium (Rosuvastatin 10 Mg Tab) 40 mg PO BEDTIME [facility] Last Admin: 12/30/20 20:06 Dose: 40 mg Documented by: Sertraline HCl (Sertraline 50 Mg Tab) 50 mg PO BEDTIME [facility] Last Admin: 12/30/20 20:07 Dose: 50 mg Documented by: Sodium Chloride (Sodium Chloride 0.9% 10 Ml Syringe) 10 ml FLUSH ASDIRECTED PRN PRN Reason: Keep Vein Open Last Admin: 12/29/20 19:35 Dose: 10 ml Documented by: Warfarin Sodium (Pharmacy To Dose - Warfarin) 1 dose .XX ASDIRECTED PRN PRN Reason: RX TO DOSE WARFARIN Zinc Sulfate (Zinc Sulfate 220 Mg Cap) 220 mg PO DAILY [facility] Last Admin: 12/30/20 09:41 Dose: 220 mg Documented by: Discontinued Medications Albuterol (Albuterol 0.083% 2.5 Mg/3 Ml Neb Soln) 2.5 mg NEB ONETIME ONE Stop: 12/29/20 18:44 Last Admin: 12/29/20 19:36 Dose: 2.5 mg Documented by: Albuterol/Ipratropium (Albuterol/Ipratropium 3.0-0.5 Mg/3 Ml Neb Soln) ml INH BID PRN PRN Reason: sob Olopatadine Hcl 0.1% (Eye Drops Ptom) 1 drop EYEBOTH BID [facility] Last Admin: 12/30/20 09:48 Dose: Not Given Documented by: Ondansetron HCl (Ondansetron 4 Mg/2 Ml Sdv) 4 mg IVPUSH ONETIME ONE Stop: 12/29/20 18:48 Last Admin: 12/29/20 20:00 Dose: 4 mg Documented by: Warfarin Sodium (Warfarin Sliding Scale) 0 each PO QPM [facility] Stop: 12/30/20 18:01 Last Admin: 12/30/20 18:00 Dose: Not Given Documented by: - Exam Quality Assessment: DVT Prophylaxis. No: Supplemental Oxygen, Urine Catheter General: Alert, Oriented, Cooperative, No Acute Distress HEENT: Pupils Equal, Pupils Reactive, Mucous Membr. Moist/[place] Neck: Supple, Trachea Midline Lungs: Normal Respiratory Effort, Wheezing (End expiratory) Cardiovascular: Regular Rate, Regular Rhythm GI/Abdominal Exam: Normal Bowel Sounds, Soft, Non-Tender, No Distention (Female) Exam: Deferred Back Exam: Normal Inspection, Full Range of Motion Extremities: Normal Inspection, Normal Range of Motion, Non-Tender, No Pedal Edema, Normal Capillary Refill Skin: Warm, Dry, Intact Neurological: No New Focal Deficit Psy/Mental Status: Alert, Normal Affect, Normal Mood - Patient Data Lab Results Last 24 hrs: Laboratory Results - last 24 hr 12/30/20 12/30/20 12/30/20 Range/Units 06:15 06:15 06:15 WBC 8.69 (3.98-10.04) K/mm3 RBC 4.04 (3.98-5.22) M/mm3 Hgb 12.0 (11.2-15.7) gm/dl Hct 38.5 (34.1-44.9) % MCV 95.3 H (79.4-94.8) fl MCH 29.7 (25.6-32.2) pg MCHC 31.2 L (32.2-35.5) g/dl RDW Std Deviation 48.5 H (36.4-46.3) fL Plt Count 149 L (182-369) K/mm3 MPV 10.7 (9.4-12.3) fl Neut % (Auto) 89.2 H (34.0-71.1) % Lymph % (Auto) 8.7 L (19.3-51.7) % [place] % (Auto) 1.7 L (4.7-12.5) % Eos % (Auto) 0 L (0.7-5.8) Baso % (Auto) 0.1 (0.1-1.2) % Neut # (Auto) 7.74 H (1.56-6.13) K/mm3 Lymph # (Auto) 0.76 L (1.18-3.74) K/mm3 [place] # (Auto) 0.15 L (0.24-0.36) K/mm3 Eos # (Auto) 0.00 L (0.04-0.36) K/mm3 Baso # (Auto) 0.01 (0.01-0.08) K/mm3 Manual Slide Review Not Reportable PT 46.7 H D (9.7-12.0) SECONDS INR 4.46 D-Dimer, Quantitative 1.10 H (0.19-0.50) mg/L Sodium 134 L (136-145) mEq/L Potassium 5.1 (3.5-5.1) mEq/L Chloride 102 (98-107) mEq/L Carbon Dioxide 25 (21-32) mEq/L Anion Gap 12.1 (5-15) BUN 22 H (7-18) mg/dL Creatinine 1.5 H (0.55-1.02) mg/dL Est Cr Clr Drug Dosing 25.16 mL/min Estimated GFR (MDRD) 33 (>60) mL/min BUN/Creatinine Ratio 14.7 (14-18) Glucose 169 H (70-99) mg/dL POC Glucose (70-99) mg/dL Hemoglobin A1c ( - 5.6) % Calcium 8.5 (8.5-10.1) mg/dL Phosphorus 3.0 (2.6-4.7) mg/dL Magnesium 2.0 (1.8-2.4) mg/dL Total Bilirubin 0.2 (0.2-1.0) mg/dL AST 33 (15-37) U/L ALT 36 (14-59) U/L Alkaline Phosphatase 54 (46-116) U/L C-Reactive Protein 19.0 H* (<1.0) mg/dL Total Protein 5.7 L (6.4-8.2) g/dl Albumin 2.2 L (3.4-5.0) g/dl Globulin 3.5 gm/dL Albumin/Globulin Ratio 0.6 L (1-2) Vitamin D 25-Hydroxy (30.0-100.0) ng/ml Procalcitonin ng/mL 12/30/20 12/30/20 12/30/20 Range/Units 06:15 06:15 06:15 WBC (3.98-10.04) K/mm3 RBC (3.98-5.22) M/mm3 Hgb (11.2-15.7) gm/dl Hct (34.1-44.9) % MCV (79.4-94.8) fl MCH (25.6-32.2) pg MCHC (32.2-35.5) g/dl RDW Std Deviation (36.4-46.3) fL Plt Count (182-369) K/mm3 MPV (9.4-12.3) fl Neut % (Auto) (34.0-71.1) % Lymph % (Auto) (19.3-51.7) % [place] % (Auto) (4.7-12.5) % Eos % (Auto) (0.7-5.8) Baso % (Auto) (0.1-1.2) % Neut # (Auto) (1.56-6.13) K/mm3 Lymph # (Auto) (1.18-3.74) K/mm3 [place] # (Auto) (0.24-0.36) K/mm3 Eos # (Auto) (0.04-0.36) K/mm3 Baso # (Auto) (0.01-0.08) K/mm3 Manual Slide Review PT (9.7-12.0) SECONDS INR D-Dimer, Quantitative (0.19-0.50) mg/L Sodium (136-145) mEq/L Potassium (3.5-5.1) mEq/L Chloride (98-107) mEq/L Carbon Dioxide (21-32) mEq/L Anion Gap (5-15) BUN (7-18) mg/dL Creatinine (0.55-1.02) mg/dL Est Cr Clr Drug Dosing mL/min Estimated GFR (MDRD) (>60) mL/min BUN/Creatinine Ratio (14-18) Glucose (70-99) mg/dL POC Glucose (70-99) mg/dL Hemoglobin A1c 6.5 H ( - 5.6) % Calcium (8.5-10.1) mg/dL Phosphorus (2.6-4.7) mg/dL Magnesium (1.8-2.4) mg/dL Total Bilirubin (0.2-1.0) mg/dL AST (15-37) U/L ALT (14-59) U/L Alkaline Phosphatase (46-116) U/L C-Reactive Protein (<1.0) mg/dL Total Protein (6.4-8.2) g/dl Albumin (3.4-5.0) g/dl Globulin gm/dL Albumin/Globulin Ratio (1-2) Vitamin D 25-Hydroxy 44.9 (30.0-100.0) ng/ml Procalcitonin 0.52 H ng/mL 12/30/20 12/30/20 12/31/20 Range/Units 17:51 21:07 05:38 WBC (3.98-10.04) K/mm3 RBC (3.98-5.22) M/mm3 Hgb (11.2-15.7) gm/dl Hct (34.1-44.9) % MCV (79.4-94.8) fl MCH (25.6-32.2) pg MCHC (32.2-35.5) g/dl RDW Std Deviation (36.4-46.3) fL Plt Count (182-369) K/mm3 MPV (9.4-12.3) fl Neut % (Auto) (34.0-71.1) % Lymph % (Auto) (19.3-51.7) % [place] % (Auto) (4.7-12.5) % Eos % (Auto) (0.7-5.8) Baso % (Auto) (0.1-1.2) % Neut # (Auto) (1.56-6.13) K/mm3 Lymph # (Auto) (1.18-3.74) K/mm3 [place] # (Auto) (0.24-0.36) K/mm3 Eos # (Auto) (0.04-0.36) K/mm3 Baso # (Auto) (0.01-0.08) K/mm3 Manual Slide Review PT (9.7-12.0) SECONDS INR D-Dimer, Quantitative (0.19-0.50) mg/L Sodium (136-145) mEq/L Potassium (3.5-5.1) mEq/L Chloride (98-107) mEq/L Carbon Dioxide (21-32) mEq/L Anion Gap (5-15) BUN (7-18) mg/dL Creatinine (0.55-1.02) mg/dL Est Cr Clr Drug Dosing mL/min Estimated GFR (MDRD) (>60) mL/min BUN/Creatinine Ratio (14-18) Glucose (70-99) mg/dL POC Glucose 170 H 198 H 154 H (70-99) mg/dL Hemoglobin A1c ( - 5.6) % Calcium (8.5-10.1) mg/dL Phosphorus (2.6-4.7) mg/dL Magnesium (1.8-2.4) mg/dL Total Bilirubin (0.2-1.0) mg/dL AST (15-37) U/L ALT (14-59) U/L Alkaline Phosphatase (46-116) U/L C-Reactive Protein (<1.0) mg/dL Total Protein (6.4-8.2) g/dl Albumin (3.4-5.0) g/dl Globulin gm/dL Albumin/Globulin Ratio (1-2) Vitamin D 25-Hydroxy (30.0-100.0) ng/ml Procalcitonin ng/mL Result Diagrams: 12/31/20 06:00 12/31/20 06:00 Sepsis Event Note - Evaluation Sepsis Screening Result: Sepsis Risk - Focused Exam Vital Signs: Vital Signs Temp Pulse Pulse Resp BP Pulse Ox 12/31/20 02:58 96.4 F L 91 20 138/62 94 L 12/31/20 00:47 64 12/31/20 00:26 96.6 F L 32 L 18 130/53 L 92 L 12/30/20 20:05 70 96 12/30/20 19:47 97.0 F 70 18 140/52 L - Problem List & Annotations (1) History of angina SNOMED Code(s): 967272169 Code(s): Z86.79 - PERSONAL HISTORY OF OTHER DISEASES OF THE CIRCULATORY SYSTEM Status: Chronic Priority: Low Current Visit: No (2) History of cardiac arrhythmia SNOMED Code(s): 573968704504472 Code(s): Z86.79 - PERSONAL HISTORY OF OTHER DISEASES OF THE CIRCULATORY SYSTEM Status: Chronic Priority: Low Current Visit: No (3) History of venous thromboembolism SNOMED Code(s): 752536410 Code(s): Z86.718 - PERSONAL HISTORY OF OTHER VENOUS THROMBOSIS AND EMBOLISM Status: Chronic Priority: Medium Current Visit: No (4) CAD (coronary artery disease) SNOMED Code(s): 50629140 Code(s): I25.10 - ATHSCL HEART DISEASE OF [place] CORONARY ARTERY W/O ANG PCTRS Status: Chronic Priority: Medium Current Visit: No Qualifiers: Coronary Disease-Associated Artery/Lesion type: unspecified vessel or lesion type [place] vs. transplanted heart: [place] heart Associated angina: unspecified whether angina present Qualified Code(s): I25.10 - Atherosclerotic heart disease of [place] coronary artery without angina pectoris (5) HLD (hyperlipidemia) SNOMED Code(s): 02518279 Code(s): E78.5 - HYPERLIPIDEMIA, UNSPECIFIED Status: Chronic Priority: Low Current Visit: No Qualifiers: Hyperlipidemia type: unspecified Qualified Code(s): E78.5 - Hyperlipidemia, unspecified (6) HTN (hypertension) SNOMED Code(s): 06693482 Code(s): I10 - ESSENTIAL (PRIMARY) HYPERTENSION Status: Chronic Priority: Medium Current Visit: No Qualifiers: Hypertension type: unspecified Qualified Code(s): I10 - Essential (primary) hypertension (7) H/O heart artery stent SNOMED Code(s): 837832877, 951293625 Code(s): Z95.5 - PRESENCE OF CORONARY ANGIOPLASTY IMPLANT AND GRAFT Status: Chronic Priority: Low Current Visit: No (8) Asthma SNOMED Code(s): 272679359 Code(s): J45.909 - UNSPECIFIED ASTHMA, UNCOMPLICATED Status: Chronic Priority: Medium Current Visit: No Qualifiers: Asthma severity: unspecified severity Asthma persistence: unspecified Asthma complication type: unspecified Qualified Code(s): J45.909 - Unspecified asthma, uncomplicated (9) COPD (chronic obstructive pulmonary disease) SNOMED Code(s): 09911036 Code(s): J44.9 - CHRONIC OBSTRUCTIVE PULMONARY DISEASE, UNSPECIFIED Status: Chronic Priority: Medium Current Visit: No Qualifiers: COPD type: unspecified COPD Qualified Code(s): J44.9 - Chronic obstructive pulmonary disease, unspecified (10) Recurrent pneumonia SNOMED Code(s): 978200072 Code(s): J18.9 - PNEUMONIA, UNSPECIFIED ORGANISM Status: Chronic Priority: Medium Current Visit: No (11) Chronic constipation SNOMED Code(s): 471792496 Code(s): K59.09 - OTHER CONSTIPATION Status: Chronic Priority: Low Current Visit: No (12) GERD (gastroesophageal reflux disease) SNOMED Code(s): 542479352 Code(s): K21.9 - GASTRO-ESOPHAGEAL REFLUX DISEASE WITHOUT ESOPHAGITIS Status: Chronic Priority: Low Current Visit: No Qualifiers: Esophagitis presence: esophagitis presence not specified Qualified Code(s): K21.9 - Gastro-esophageal reflux disease without esophagitis (13) IBS (irritable bowel syndrome) SNOMED Code(s): 60431754 Code(s): K58.9 - IRRITABLE BOWEL SYNDROME WITHOUT DIARRHEA Status: Chronic Priority: Low Current Visit: No Qualifiers: Irritable bowel syndrome type: unspecified Qualified Code(s): K58.9 - Irritable bowel syndrome without diarrhea (14) Arthritis SNOMED Code(s): 1071169 Code(s): M19.90 - UNSPECIFIED OSTEOARTHRITIS, UNSPECIFIED SITE Status: Chronic Priority: Low Current Visit: No (15) Chronic back pain SNOMED Code(s): 563695278 Code(s): M54.9 - DORSALGIA, UNSPECIFIED; G89.29 - OTHER CHRONIC PAIN Status: Chronic Priority: Low Current Visit: No Qualifiers: Back pain location: back pain in unspecified location Back pain laterality: unspecified Qualified Code(s): M54.9 - Dorsalgia, unspecified; G89.29 - Other chronic pain (16) Gout SNOMED Code(s): 88387938 Code(s): M10.9 - GOUT, UNSPECIFIED Status: Chronic Priority: Low Current Visit: No Qualifiers: Gout site: unspecified site Gout etiology: unspecified cause Chronicity: chronic Presence of tophus: without tophus Qualified Code(s): M1A.9XX0 - Chronic gout, unspecified, without tophus (tophi) (17) History of CVA (cerebrovascular accident) SNOMED Code(s): 951950514 Code(s): Z86.73 - PRSNL HX OF TIA (TIA), AND CEREB INFRC W/O RESID DEFICITS Status: Chronic Priority: Low Current Visit: No (18) Diabetic neuropathy SNOMED Code(s): 051417222, 871684060, 960042128 Code(s): E11.40 - TYPE 2 DIABETES MELLITUS WITH DIABETIC NEUROPATHY, UNSP Status: Chronic Priority: Low Current Visit: No Qualifiers: Diabetes mellitus type: type 2 Diabetes mellitus complication detail: with other neurological complication Qualified Code(s): E11.49 - Type 2 diabetes mellitus with other diabetic neurological complication (19) Anxiety SNOMED Code(s): 80884693 Code(s): F41.9 - ANXIETY DISORDER, UNSPECIFIED Status: Chronic Priority: Low Current Visit: No (20) Depression SNOMED Code(s): 42606770 Code(s): F32.A - DEPRESSION, UNSPECIFIED Status: Chronic Priority: Low Current Visit: No Qualifiers: Depression Type: other depression Qualified Code(s): F32.89 - Other specified depressive episodes (21) Type II diabetes mellitus SNOMED Code(s): 75515349 Code(s): E11.9 - TYPE 2 DIABETES MELLITUS WITHOUT COMPLICATIONS Status: Chronic Priority: Medium Current Visit: Yes Qualifiers: Diabetes mellitus shelter insulin use: without shelter use Diabetes mellitus complication status: with other specified complication Qualified Code(s): E11.69 - Type 2 diabetes mellitus with other specified complication (22) Chronic anticoagulation SNOMED Code(s): 964903329 Code(s): Z79.01 - RUG RENOVATOR (CURRENT) USE OF ANTICOAGULANTS Status: Chronic Priority: Medium Current Visit: Yes (23) COVID-19 vaccine series completed SNOMED Code(s): 495946266, 197372301 Code(s): Z92.29 - PERSONAL HISTORY OF OTHER DRUG THERAPY Status: Chronic Priority: Medium Current Visit: Yes (24) COVID-19 SNOMED Code(s): 271672415 Code(s): U07.1 - COVID-19 Status: Acute Priority: High Current Visit: Yes (25) Weakness generalized SNOMED Code(s): 84987295 Code(s): R53.1 - WEAKNESS Status: Acute Priority: High Current Visit: Yes (26) COPD (chronic obstructive pulmonary disease) with acute bronchitis SNOMED Code(s): 430226952828094 Code(s): J44.0 - CHR OBSTRUCTIVE PULMON DISEASE WITH (ACUTE) LOWER RESP INFCT; J20.9 - ACUTE BRONCHITIS, UNSPECIFIED Status: Chronic Priority: Medium Current Visit: Yes (27) Chronic renal insufficiency SNOMED Code(s): 430452426 Code(s): N18.9 - CHRONIC KIDNEY DISEASE, UNSPECIFIED Status: Chronic Priority: Medium Current Visit: No Qualifiers: Chronic kidney disease stage: stage 3 (moderate) Chronic kidney disease stage 3 subtype: stage 3b (GFR 30-44) Qualified Code(s): N18.32 - Chronic kidney disease, stage 3b (28) Congestive heart failure SNOMED Code(s): 49812954 Code(s): I50.9 - HEART FAILURE, UNSPECIFIED Status: Acute Current Visit: No Qualifiers: Heart failure type: unspecified Heart failure chronicity: acute on chronic Qualified Code(s): I50.9 - Heart failure, unspecified (29) Hypoxia SNOMED Code(s): 055261762 Code(s): R09.02 - HYPOXEMIA Status: Resolved Priority: High Current Visit: Yes (30) Low back pain SNOMED Code(s): 508974640 Code(s): M54.5 - LOW BACK PAIN * DO NOT USE * Status: Chronic Priority: Low Current Visit: No Qualifiers: Chronicity: chronic Back pain laterality: left Sciatica presence: with sciatica Sciatica laterality: sciatica of left side Qualified Code(s): M54.42 - Lumbago with sciatica, left side; G89.29 - Other chronic pain (31) Hyponatremia SNOMED Code(s): 02243912 Code(s): E87.1 - HYPO-OSMOLALITY AND HYPONATREMIA Status: Acute Priority: High Current Visit: Yes - Problem List Review Problem List Initiated/Reviewed/Updated: Yes - My Orders Last 24 Hours: My Active Orders 12/30/20 08:50 Consult to Case Management/Senior Electrical Project Manager [CONS] Routine Consult to Respiratory Therapy [Respiratory Care Assess and Treatment] [CONS] Routine 12/30/20 08:53 Pulse Oximetry Continuous Monitoring [OM.PC] Routine 12/30/20 08:54 Pulse Oximetry [RC] CONTINUOUS 12/30/20 08:55 Isolation [COMM] Stat 12/30/20 09:00 Zinc Sulfate [Zincate] 220 mg PO DAILY 12/30/20 14:15 Blood Glucose Check, Bedside [RC] QIDACANDBED 12/30/20 Dinner Consistent Carbohydrate Diet [DIET] Insulin Lispro [HumaLOG] See Protocol SUBCUT QIDACANDBED 12/31/20 05:11 CBC WITH AUTO DIFF [HEME] AM CMP [COMPREHENSIVE METABOLIC PN,CMP] [CHEM] AM CRP [C-REACTIVE PROTEIN] [CHEM] AM DD [D-DIMER QUANTITATIVE] [COAG] Q48H MAGNESIUM [CHEM] AM 01/01/21 05:11 CBC WITH AUTO DIFF [HEME] AM CMP [COMPREHENSIVE METABOLIC PN,CMP] [CHEM] AM CRP [C-REACTIVE PROTEIN] [CHEM] AM MAGNESIUM [CHEM] AM 01/02/21 05:11 CBC WITH AUTO DIFF [HEME] AM CMP [COMPREHENSIVE METABOLIC PN,CMP] [CHEM] AM CRP [C-REACTIVE PROTEIN] [CHEM] AM DD [D-DIMER QUANTITATIVE] [COAG] Q48H MAGNESIUM [CHEM] AM 01/03/21 05:11 CBC WITH AUTO DIFF [HEME] AM CRP [C-REACTIVE PROTEIN] [CHEM] AM MAGNESIUM [CHEM] AM 01/04/21 05:11 DD [D-DIMER QUANTITATIVE] [COAG] Q48H - Assessment Assessment:: 12/31/2020 This is a 80-year-old female admitted to the floor due to weakness and COVID-19 symptoms. She was essentially too weak to return to her assisted living facility. Since admission she has been doing very well and has been weaned off of oxygen. She is receiving dexamethasone and remdesivir. She was evaluated by physical therapy and Occupational Therapy who are recommending return to [facility]. She may benefit from outpatient physical therapy per their notes. She denies any current symptoms and states she feels pretty good. Labs today show a WBC of 10.70, which is likely steroid related. Hemoglobin is 12.2. Platelet are 213,000. Neutrophils are elevated 83.3%. INR is 4.84. Pharmacy is dosing warfarin and will continue to hold this. Sodium has dropped from 1 34-1 31. Patient is usually on the lower end of normal but has had some hyponatremia noted in the past. We will recheck labs in the morning. We will also check serum and urine osmolality as well as urine sodium. Potassium is 4.8. Chloride 99. Carbon dioxide 25. Anion gap is 11.8. BUN is 36. Creatinine is 1.4. GFR is 36. Renal function appears to be near baseline. Glucose has been between 162 and 198. A1c obtained yesterday was 6.5. Calcium is 8.9. Magnesium 2.1. Total bilirubin 0.2. AST is 43, ALT 40, alkaline phosphatase is 54. CRP is 9.0. Protein is 5.8. Albumin is 2.2. Vitamin D obtained yesterday was within normal limits at 44.9. Procalcitonin was slightly elevated 0.52. She has had no fevers or other overt signs of infection. Likely discharge in 1 to 2 days pending further hyponatremic work-up. - Plan Plan:: Weakness generalized Low back pain Arthritis Chronic back pain Gout * Home medications as ordered * PT/OT * Case management/social work consultation COVID-19 COVID-19 vaccine series completed COPD (chronic obstructive pulmonary disease) with acute bronchitis Hypoxia, resolved * Received Bamlanivimab in ED * Dexamethasone 6 mg PO for 10 days * O2 as needed to keep saturation between 88 and 95% * I-S/Acapella * RT consultation * Airborne/contact precautions * Telemetry * Continuous pulse oximetry * As needed albuterol MDI * As needed albuterol nebulizer * As needed DuoNeb * Zinc supplementation * Daily lab checks Hyponatremia * Re-check labs in AM * Check serum and urine osmolality * Check urine sodium History of angina History of cardiac arrhythmia History of venous thromboembolism CAD (coronary artery disease) Congestive Heart failure HLD (hyperlipidemia) HTN (hypertension) H/O heart artery stent Chronic anticoagulation History of CVA (cerebrovascular accident) * No acute concerns * Home medications as ordered * Daily INR check * Pharmacy to dose warfarin * Telemetry Asthma COPD (chronic obstructive pulmonary disease) Recurrent pneumonia * No acute concerns * Home respiratory meds as ordered * RT consultation * Other treatments as above Chronic constipation * No acute concerns * As needed laxatives/stool softeners GERD (gastroesophageal reflux disease) IBS (irritable bowel syndrome) * No acute concerns * Home medications as ordered Anxiety Depression * No acute concerns * Home medications as ordered Type II diabetes mellitus Diabetic neuropathy * A1c obtained 6.5% * 4 times daily before meals and bedtime glucose checks * Low-dose sliding scale insulin * Consistent carbohydrate diet Chronic renal insufficiency * No acute concerns - patient appears at baseline * Avoid nephrotoxic medications if possible Code status: DNR/DNI PCP: Dr. Robins DVT Prophylaxis: Home warfarin with pharmacy to dose Social: Patient resides at [facility] Disposition: Patient mated to the medical floor for management of COVID-19 symptoms and generalized weakness. Likely discharge in 1 to 2 days pending progress.
[2020-12-31] MEDS: Insulin Lispro 100 Unit/ML 3 ML KwikPen SUBCUT SCH ×4 (08:21→21:31)
[2020-12-31] MEDS: Dexamethasone 4 MG Tab PO SCH (08:23)
[2020-12-31] MEDS: Cholecalciferol (Vitamin D3) 25 MCG Tab PO SCH (08:24)
[2020-12-31] MEDS: Pantoprazole 40 MG Tab.CR PO SCH (08:25)
[2020-12-31] MEDS: Ascorbic Acid 500 MG Tab PO SCH (08:25)
[2020-12-31] MEDS: Zinc Sulfate 220 MG Cap PO SCH (08:25)
[2020-12-31] MEDS: EYE EYEBOTH SCH ×2 (08:27→20:06)
[2020-12-31] MEDS: OLOPATADINE HCL 0.1% EYEBOTH SCH ×2 (08:27→20:06)
[2020-12-31] MEDS: Ferrous Sulfate 324 MG Tab.EC PO SCH (08:31)
[2020-12-31] MEDS ORDERED: Magnesium Hydroxide 400 MG/5 ML Susp 30 ML Cup PO ONE (16:09)
[2020-12-31] MEDS ORDERED: Warfarin Sliding Scale PO SCH (18:00)
[2020-12-31] MEDS ORDERED: guaiFENesin/Dextromethorphan 100-10 MG/5 ML Soln 5 ML Cup PO PRN (19:52)
[2020-12-31] MEDS: Rosuvastatin 10 MG Tab PO SCH (20:06)
[2020-12-31] MEDS: Sertraline 50 MG Tab PO SCH (20:06)
[2020-12-31] MEDS: Allopurinol 300 MG Tab PO SCH (20:06)
--- NOTE | 2021-01-01 07:45 | PCM.PN ---
- General Info Date of Service: 01/01/21 Admission Dx/Problem (Free Text): Admission Diagnosis/Problem Admission Diagnosis/Problem Weakness Subjective Update: The patient is a 80-year-old lady who was admitted to acute hospitalization on December 30, 2020. The patient was noted to be too weak for further care at [place]. The patient had developed fatigue due to COVID-19. Symptoms started up November 21, 2020. The patient today says that she is still feeling very weak. The patient has been tolerating her diet. The patient says that she is feeling too weak to go home. Functional Status: Reports: Pain Controlled, Tolerating Diet. Denies: New Symptoms - Review of Systems General: Reports: Weakness, Fatigue HEENT: Reports: No Symptoms Pulmonary: Reports: Cough Cardiovascular: Reports: No Symptoms Gastrointestinal: Reports: No Symptoms Genitourinary: Reports: No Symptoms Musculoskeletal: Reports: No Symptoms Skin: Reports: No Symptoms Neurological: Reports: No Symptoms Psychiatric: Reports: No Symptoms - Patient Data Vitals - Most Recent: Last Vital Signs Temp 36.8 C 01/01/21 04:14 Pulse 53 L 01/01/21 04:14 Resp 14 01/01/21 04:14 BP 156/77 H 01/01/21 04:14 Pulse Ox 98 01/01/21 04:14 Weight - Most Recent: 72.665 kg I&O - Last 24 Hours: Intake & Output 12/31/20 01/01/21 01/01/21 22:59 06:59 14:59 Intake Total 1125 500 Output Total 550 880 Balance 575 -380 Lab Results Last 24 Hours: Laboratory Results - last 24 hr 12/31/20 12/31/20 12/31/20 Range/Units 06:00 06:00 11:10 WBC (3.98-10.04) K/mm3 RBC (3.98-5.22) M/mm3 Hgb (11.2-15.7) gm/dl Hct (34.1-44.9) % MCV (79.4-94.8) fl MCH (25.6-32.2) pg MCHC (32.2-35.5) g/dl RDW Std Deviation (36.4-46.3) fL Plt Count (182-369) K/mm3 MPV (9.4-12.3) fl Neut % (Auto) (34.0-71.1) % Lymph % (Auto) (19.3-51.7) % [place] % (Auto) (4.7-12.5) % Eos % (Auto) (0.7-5.8) Baso % (Auto) (0.1-1.2) % Neut # (Auto) (1.56-6.13) K/mm3 Lymph # (Auto) (1.18-3.74) K/mm3 [place] # (Auto) (0.24-0.36) K/mm3 Eos # (Auto) (0.04-0.36) K/mm3 Baso # (Auto) (0.01-0.08) K/mm3 Manual Slide Review PT (9.7-12.0) SECONDS INR Sodium 131 L (136-145) mEq/L Potassium 4.8 (3.5-5.1) mEq/L Chloride 99 (98-107) mEq/L Carbon Dioxide 25 (21-32) mEq/L Anion Gap 11.8 (5-15) BUN 36 H (7-18) mg/dL Creatinine 1.4 H (0.55-1.02) mg/dL Est Cr Clr Drug Dosing 26.95 mL/min Estimated GFR (MDRD) 36 (>60) mL/min BUN/Creatinine Ratio 25.7 H (14-18) Glucose 162 H (70-99) mg/dL POC Glucose 178 H (70-99) mg/dL Serum Osmolality 288 (280-300) mosm/kg Calcium 8.9 (8.5-10.1) mg/dL Magnesium 2.1 (1.8-2.4) mg/dL Total Bilirubin 0.2 (0.2-1.0) mg/dL AST 43 H (15-37) U/L ALT 48 (14-59) U/L Alkaline Phosphatase 54 (46-116) U/L C-Reactive Protein 9.0 H* (<1.0) mg/dL Total Protein 5.8 L (6.4-8.2) g/dl Albumin 2.2 L (3.4-5.0) g/dl Globulin 3.6 gm/dL Albumin/Globulin Ratio 0.6 L (1-2) Urine Osmolality (400-1100) mosm/kg Ur Random Sodium (40-220) mEq/L 12/31/20 12/31/20 12/31/20 Range/Units 15:50 16:58 20:04 WBC (3.98-10.04) K/mm3 RBC (3.98-5.22) M/mm3 Hgb (11.2-15.7) gm/dl Hct (34.1-44.9) % MCV (79.4-94.8) fl MCH (25.6-32.2) pg MCHC (32.2-35.5) g/dl RDW Std Deviation (36.4-46.3) fL Plt Count (182-369) K/mm3 MPV (9.4-12.3) fl Neut % (Auto) (34.0-71.1) % Lymph % (Auto) (19.3-51.7) % [place] % (Auto) (4.7-12.5) % Eos % (Auto) (0.7-5.8) Baso % (Auto) (0.1-1.2) % Neut # (Auto) (1.56-6.13) K/mm3 Lymph # (Auto) (1.18-3.74) K/mm3 [place] # (Auto) (0.24-0.36) K/mm3 Eos # (Auto) (0.04-0.36) K/mm3 Baso # (Auto) (0.01-0.08) K/mm3 Manual Slide Review PT (9.7-12.0) SECONDS INR Sodium (136-145) mEq/L Potassium (3.5-5.1) mEq/L Chloride (98-107) mEq/L Carbon Dioxide (21-32) mEq/L Anion Gap (5-15) BUN (7-18) mg/dL Creatinine (0.55-1.02) mg/dL Est Cr Clr Drug Dosing mL/min Estimated GFR (MDRD) (>60) mL/min BUN/Creatinine Ratio (14-18) Glucose (70-99) mg/dL POC Glucose 191 H 156 H (70-99) mg/dL Serum Osmolality (280-300) mosm/kg Calcium (8.5-10.1) mg/dL Magnesium (1.8-2.4) mg/dL Total Bilirubin (0.2-1.0) mg/dL AST (15-37) U/L ALT (14-59) U/L Alkaline Phosphatase (46-116) U/L C-Reactive Protein (<1.0) mg/dL Total Protein (6.4-8.2) g/dl Albumin (3.4-5.0) g/dl Globulin gm/dL Albumin/Globulin Ratio (1-2) Urine Osmolality 322 L (400-1100) mosm/kg Ur Random Sodium 15 L (40-220) mEq/L 01/01/21 01/01/21 01/01/21 Range/Units 05:32 05:32 05:32 WBC 11.84 H (3.98-10.04) K/mm3 RBC 4.14 (3.98-5.22) M/mm3 Hgb 12.3 (11.2-15.7) gm/dl Hct 38.5 (34.1-44.9) % MCV 93.0 (79.4-94.8) fl MCH 29.7 (25.6-32.2) pg MCHC 31.9 L (32.2-35.5) g/dl RDW Std Deviation 46.8 H (36.4-46.3) fL Plt Count 215 (182-369) K/mm3 MPV 11.3 (9.4-12.3) fl Neut % (Auto) 85.0 H (34.0-71.1) % Lymph % (Auto) 9.4 L (19.3-51.7) % [place] % (Auto) 5.0 (4.7-12.5) % Eos % (Auto) 0 L (0.7-5.8) Baso % (Auto) 0.1 (0.1-1.2) % Neut # (Auto) 10.07 H (1.56-6.13) K/mm3 Lymph # (Auto) 1.11 L (1.18-3.74) K/mm3 [place] # (Auto) 0.59 H (0.24-0.36) K/mm3 Eos # (Auto) 0.00 L (0.04-0.36) K/mm3 Baso # (Auto) 0.01 (0.01-0.08) K/mm3 Manual Slide Review Normal smear PT 31.2 H D (9.7-12.0) SECONDS INR 2.93 Sodium 134 L (136-145) mEq/L Potassium 5.7 H (3.5-5.1) mEq/L Chloride 102 (98-107) mEq/L Carbon Dioxide 24 (21-32) mEq/L Anion Gap 13.7 (5-15) BUN 55 H (7-18) mg/dL Creatinine 1.4 H (0.55-1.02) mg/dL Est Cr Clr Drug Dosing 29.32 mL/min Estimated GFR (MDRD) 36 (>60) mL/min BUN/Creatinine Ratio 39.3 H (14-18) Glucose 154 H (70-99) mg/dL POC Glucose (70-99) mg/dL Serum Osmolality (280-300) mosm/kg Calcium 9.5 (8.5-10.1) mg/dL Magnesium 2.2 (1.8-2.4) mg/dL Total Bilirubin 0.2 (0.2-1.0) mg/dL AST 50 H (15-37) U/L ALT 70 H (14-59) U/L Alkaline Phosphatase 56 (46-116) U/L C-Reactive Protein 3.1 H* (<1.0) mg/dL Total Protein 5.6 L (6.4-8.2) g/dl Albumin 2.2 L (3.4-5.0) g/dl Globulin 3.4 gm/dL Albumin/Globulin Ratio 0.7 L (1-2) Urine Osmolality (400-1100) mosm/kg Ur Random Sodium (40-220) mEq/L 01/01/21 Range/Units 05:52 WBC (3.98-10.04) K/mm3 RBC (3.98-5.22) M/mm3 Hgb (11.2-15.7) gm/dl Hct (34.1-44.9) % MCV (79.4-94.8) fl MCH (25.6-32.2) pg MCHC (32.2-35.5) g/dl RDW Std Deviation (36.4-46.3) fL Plt Count (182-369) K/mm3 MPV (9.4-12.3) fl Neut % (Auto) (34.0-71.1) % Lymph % (Auto) (19.3-51.7) % [place] % (Auto) (4.7-12.5) % Eos % (Auto) (0.7-5.8) Baso % (Auto) (0.1-1.2) % Neut # (Auto) (1.56-6.13) K/mm3 Lymph # (Auto) (1.18-3.74) K/mm3 [place] # (Auto) (0.24-0.36) K/mm3 Eos # (Auto) (0.04-0.36) K/mm3 Baso # (Auto) (0.01-0.08) K/mm3 Manual Slide Review PT (9.7-12.0) SECONDS INR Sodium (136-145) mEq/L Potassium (3.5-5.1) mEq/L Chloride (98-107) mEq/L Carbon Dioxide (21-32) mEq/L Anion Gap (5-15) BUN (7-18) mg/dL Creatinine (0.55-1.02) mg/dL Est Cr Clr Drug Dosing mL/min Estimated GFR (MDRD) (>60) mL/min BUN/Creatinine Ratio (14-18) Glucose (70-99) mg/dL POC Glucose 150 H (70-99) mg/dL Serum Osmolality (280-300) mosm/kg Calcium (8.5-10.1) mg/dL Magnesium (1.8-2.4) mg/dL Total Bilirubin (0.2-1.0) mg/dL AST (15-37) U/L ALT (14-59) U/L Alkaline Phosphatase (46-116) U/L C-Reactive Protein (<1.0) mg/dL Total Protein (6.4-8.2) g/dl Albumin (3.4-5.0) g/dl Globulin gm/dL Albumin/Globulin Ratio (1-2) Urine Osmolality (400-1100) mosm/kg Ur Random Sodium (40-220) mEq/L Med Orders - Current: Current Medications Acetaminophen (Acetaminophen 325 Mg Tab) 650 mg PO Q4H PRN PRN Reason: Pain (Mild 1-3)/fever Albuterol (Albuterol 0.083% 2.5 Mg/3 Ml Neb Soln) 2.5 mg NEB Q2H PRN PRN Reason: Shortness Of Breath/wheezing Albuterol (Albuterol 6.7 Gm Inhaler) 0 gm INH BID PRN PRN Reason: Shortness of Breath Albuterol/Ipratropium (Albuterol/Ipratropium 3.0-0.5 Mg/3 Ml Neb Soln) 3 ml NEB Q4H PRN PRN Reason: Shortness Of Breath/wheezing Allopurinol (Allopurinol 300 Mg Tab) 300 mg PO BEDTIME [facility] Last Admin: 12/31/20 20:06 Dose: 300 mg Documented by: Ascorbic Acid (Ascorbic Acid 500 Mg Tab) 250 mg PO DAILY [facility] Last Admin: 12/31/20 08:25 Dose: 250 mg Documented by: Calcium Carbonate/Glycine (Calcium Carbonate 500 Mg Tab.Chew) 500 mg PO Q3H PRN PRN Reason: Indigestion Cholecalciferol (Cholecalciferol (Vitamin D3) 25 Mcg Tab) 25 mcg PO DAILY [facility] Last Admin: 12/31/20 08:24 Dose: 25 mcg Documented by: Dexamethasone (Dexamethasone 4 Mg Tab) 6 mg PO DAILY [facility] Stop: 01/07/21 09:01 Last Admin: 12/31/20 08:23 Dose: 6 mg Documented by: Ferrous Sulfate (Ferrous Sulfate 324 Mg Tab.Ec) 324 mg PO MOWEFR [facility] Last Admin: 12/31/20 08:31 Dose: 324 mg Documented by: Guaifenesin/Dextromethorphan (Guaifenesin/Dextromethorphan 100-10 Mg/5 Ml Soln 5 Ml Cup) 10 ml PO Q4H PRN PRN Reason: Cough Last Admin: 12/31/20 20:06 Dose: 10 ml Documented by: Insulin Human Lispro (Insulin Lispro 100 Unit/Ml 3 Ml Kwikpen) 0 unit SUBCUT QIDACANDBED [facility]; Protocol Last Admin: 12/31/20 21:31 Dose: 1 unit Documented by: Nitroglycerin (Nitroglycerin 0.4 Mg Tab.Sl) 0.4 mg SL Q5M PRN PRN Reason: Chest Pain Olopatadine Hcl 0.1% (Eye Drops Ptom) 1 drop EYEBOTH BID [facility] Last Admin: 12/31/20 20:06 Dose: 1 drop Documented by: Ondansetron HCl (Ondansetron 4 Mg/2 Ml Sdv) 4 mg IV Q6H PRN PRN Reason: Nausea/Vomiting Ondansetron HCl (Ondansetron 4 Mg Tab.Dis) 4 mg PO Q4H PRN PRN Reason: Nausea Pantoprazole Sodium (Pantoprazole 40 Mg Tab.Cr) 40 mg PO DAILY [facility] Last Admin: 12/31/20 08:25 Dose: 40 mg Documented by: Polyethylene Glycol (Polyethylene Glycol 3350 Powder 17 Gm Packet) 17 gm PO DAILY PRN PRN Reason: Constipation Last Admin: 12/31/20 05:42 Dose: 17 gm Documented by: Rosuvastatin Calcium (Rosuvastatin 10 Mg Tab) 40 mg PO BEDTIME [facility] Last Admin: 12/31/20 20:06 Dose: 40 mg Documented by: Sertraline HCl (Sertraline 50 Mg Tab) 50 mg PO BEDTIME [facility] Last Admin: 12/31/20 20:06 Dose: 50 mg Documented by: Sodium Chloride (Sodium Chloride 0.9% 10 Ml Syringe) 10 ml FLUSH ASDIRECTED PRN PRN Reason: Keep Vein Open Last Admin: 12/29/20 19:35 Dose: 10 ml Documented by: Warfarin Sodium (Pharmacy To Dose - Warfarin) 1 dose .XX ASDIRECTED PRN PRN Reason: RX TO DOSE WARFARIN Zinc Sulfate (Zinc Sulfate 220 Mg Cap) 220 mg PO DAILY [facility] Last Admin: 12/31/20 08:25 Dose: 220 mg Documented by: Discontinued Medications Albuterol (Albuterol 0.083% 2.5 Mg/3 Ml Neb Soln) 2.5 mg NEB ONETIME ONE Stop: 12/29/20 18:44 Last Admin: 12/29/20 19:36 Dose: 2.5 mg Documented by: Albuterol/Ipratropium (Albuterol/Ipratropium 3.0-0.5 Mg/3 Ml Neb Soln) ml INH BID PRN PRN Reason: sob Magnesium Hydroxide (Magnesium Hydroxide 400 Mg/5 Ml Susp 30 Ml Cup) 30 ml PO ONETIME ONE Stop: 12/31/20 16:10 Last Admin: 12/31/20 17:28 Dose: 30 ml Documented by: Olopatadine Hcl 0.1% (Eye Drops Ptom) 1 drop EYEBOTH BID [facility] Last Admin: 12/30/20 09:48 Dose: Not Given Documented by: Ondansetron HCl (Ondansetron 4 Mg/2 Ml Sdv) 4 mg IVPUSH ONETIME ONE Stop: 12/29/20 18:48 Last Admin: 12/29/20 20:00 Dose: 4 mg Documented by: Warfarin Sodium (Warfarin Sliding Scale) 0 each PO QPM [facility]CI Stop: 12/30/20 18:01 Last Admin: 12/30/20 18:00 Dose: Not Given Documented by: Warfarin Sodium (Warfarin Sliding Scale) 0 each PO QPM [facility]CI Stop: 12/31/20 18:01 Last Admin: 12/31/20 17:30 Dose: Not Given Documented by: - Exam Quality Assessment: DVT Prophylaxis (On warfarin). No: Supplemental Oxygen General: Alert, Oriented, Cooperative, No Acute Distress HEENT: Pupils Equal, Pupils Reactive, EOMI, Mucous Membr. Moist/[place] Neck: Supple, Trachea Midline Lungs: Clear to Auscultation, Normal Respiratory Effort Cardiovascular: Regular Rate, Irregular Rhythm GI/Abdominal Exam: Normal Bowel Sounds, Soft, Non-Tender, No Distention (Female) Exam: Deferred Back Exam: Normal Inspection, Full Range of Motion Extremities: Normal Inspection, Normal Range of Motion, No Pedal Edema Skin: Warm, Dry, Intact Neurological: No New Focal Deficit, Normal Speech Psy/Mental Status: Alert, Normal Affect, Normal Mood - Patient Data Lab Results Last 24 hrs: Laboratory Results - last 24 hr 12/31/20 12/31/20 12/31/20 Range/Units 06:00 06:00 11:10 WBC (3.98-10.04) K/mm3 RBC (3.98-5.22) M/mm3 Hgb (11.2-15.7) gm/dl Hct (34.1-44.9) % MCV (79.4-94.8) fl MCH (25.6-32.2) pg MCHC (32.2-35.5) g/dl RDW Std Deviation (36.4-46.3) fL Plt Count (182-369) K/mm3 MPV (9.4-12.3) fl Neut % (Auto) (34.0-71.1) % Lymph % (Auto) (19.3-51.7) % [place] % (Auto) (4.7-12.5) % Eos % (Auto) (0.7-5.8) Baso % (Auto) (0.1-1.2) % Neut # (Auto) (1.56-6.13) K/mm3 Lymph # (Auto) (1.18-3.74) K/mm3 [place] # (Auto) (0.24-0.36) K/mm3 Eos # (Auto) (0.04-0.36) K/mm3 Baso # (Auto) (0.01-0.08) K/mm3 Manual Slide Review PT (9.7-12.0) SECONDS INR Sodium 131 L (136-145) mEq/L Potassium 4.8 (3.5-5.1) mEq/L Chloride 99 (98-107) mEq/L Carbon Dioxide 25 (21-32) mEq/L Anion Gap 11.8 (5-15) BUN 36 H (7-18) mg/dL Creatinine 1.4 H (0.55-1.02) mg/dL Est Cr Clr Drug Dosing 26.95 mL/min Estimated GFR (MDRD) 36 (>60) mL/min BUN/Creatinine Ratio 25.7 H (14-18) Glucose 162 H (70-99) mg/dL POC Glucose 178 H (70-99) mg/dL Serum Osmolality 288 (280-300) mosm/kg Calcium 8.9 (8.5-10.1) mg/dL Magnesium 2.1 (1.8-2.4) mg/dL Total Bilirubin 0.2 (0.2-1.0) mg/dL AST 43 H (15-37) U/L ALT 48 (14-59) U/L Alkaline Phosphatase 54 (46-116) U/L C-Reactive Protein 9.0 H* (<1.0) mg/dL Total Protein 5.8 L (6.4-8.2) g/dl Albumin 2.2 L (3.4-5.0) g/dl Globulin 3.6 gm/dL Albumin/Globulin Ratio 0.6 L (1-2) Urine Osmolality (400-1100) mosm/kg Ur Random Sodium (40-220) mEq/L 12/31/20 12/31/20 12/31/20 Range/Units 15:50 16:58 20:04 WBC (3.98-10.04) K/mm3 RBC (3.98-5.22) M/mm3 Hgb (11.2-15.7) gm/dl Hct (34.1-44.9) % MCV (79.4-94.8) fl MCH (25.6-32.2) pg MCHC (32.2-35.5) g/dl RDW Std Deviation (36.4-46.3) fL Plt Count (182-369) K/mm3 MPV (9.4-12.3) fl Neut % (Auto) (34.0-71.1) % Lymph % (Auto) (19.3-51.7) % [place] % (Auto) (4.7-12.5) % Eos % (Auto) (0.7-5.8) Baso % (Auto) (0.1-1.2) % Neut # (Auto) (1.56-6.13) K/mm3 Lymph # (Auto) (1.18-3.74) K/mm3 [place] # (Auto) (0.24-0.36) K/mm3 Eos # (Auto) (0.04-0.36) K/mm3 Baso # (Auto) (0.01-0.08) K/mm3 Manual Slide Review PT (9.7-12.0) SECONDS INR Sodium (136-145) mEq/L Potassium (3.5-5.1) mEq/L Chloride (98-107) mEq/L Carbon Dioxide (21-32) mEq/L Anion Gap (5-15) BUN (7-18) mg/dL Creatinine (0.55-1.02) mg/dL Est Cr Clr Drug Dosing mL/min Estimated GFR (MDRD) (>60) mL/min BUN/Creatinine Ratio (14-18) Glucose (70-99) mg/dL POC Glucose 191 H 156 H (70-99) mg/dL Serum Osmolality (280-300) mosm/kg Calcium (8.5-10.1) mg/dL Magnesium (1.8-2.4) mg/dL Total Bilirubin (0.2-1.0) mg/dL AST (15-37) U/L ALT (14-59) U/L Alkaline Phosphatase (46-116) U/L C-Reactive Protein (<1.0) mg/dL Total Protein (6.4-8.2) g/dl Albumin (3.4-5.0) g/dl Globulin gm/dL Albumin/Globulin Ratio (1-2) Urine Osmolality 322 L (400-1100) mosm/kg Ur Random Sodium 15 L (40-220) mEq/L 01/01/21 01/01/21 01/01/21 Range/Units 05:32 05:32 05:32 WBC 11.84 H (3.98-10.04) K/mm3 RBC 4.14 (3.98-5.22) M/mm3 Hgb 12.3 (11.2-15.7) gm/dl Hct 38.5 (34.1-44.9) % MCV 93.0 (79.4-94.8) fl MCH 29.7 (25.6-32.2) pg MCHC 31.9 L (32.2-35.5) g/dl RDW Std Deviation 46.8 H (36.4-46.3) fL Plt Count 215 (182-369) K/mm3 MPV 11.3 (9.4-12.3) fl Neut % (Auto) 85.0 H (34.0-71.1) % Lymph % (Auto) 9.4 L (19.3-51.7) % [place] % (Auto) 5.0 (4.7-12.5) % Eos % (Auto) 0 L (0.7-5.8) Baso % (Auto) 0.1 (0.1-1.2) % Neut # (Auto) 10.07 H (1.56-6.13) K/mm3 Lymph # (Auto) 1.11 L (1.18-3.74) K/mm3 [place] # (Auto) 0.59 H (0.24-0.36) K/mm3 Eos # (Auto) 0.00 L (0.04-0.36) K/mm3 Baso # (Auto) 0.01 (0.01-0.08) K/mm3 Manual Slide Review Normal smear PT 31.2 H D (9.7-12.0) SECONDS INR 2.93 Sodium 134 L (136-145) mEq/L Potassium 5.7 H (3.5-5.1) mEq/L Chloride 102 (98-107) mEq/L Carbon Dioxide 24 (21-32) mEq/L Anion Gap 13.7 (5-15) BUN 55 H (7-18) mg/dL Creatinine 1.4 H (0.55-1.02) mg/dL Est Cr Clr Drug Dosing 29.32 mL/min Estimated GFR (MDRD) 36 (>60) mL/min BUN/Creatinine Ratio 39.3 H (14-18) Glucose 154 H (70-99) mg/dL POC Glucose (70-99) mg/dL Serum Osmolality (280-300) mosm/kg Calcium 9.5 (8.5-10.1) mg/dL Magnesium 2.2 (1.8-2.4) mg/dL Total Bilirubin 0.2 (0.2-1.0) mg/dL AST 50 H (15-37) U/L ALT 70 H (14-59) U/L Alkaline Phosphatase 56 (46-116) U/L C-Reactive Protein 3.1 H* (<1.0) mg/dL Total Protein 5.6 L (6.4-8.2) g/dl Albumin 2.2 L (3.4-5.0) g/dl Globulin 3.4 gm/dL Albumin/Globulin Ratio 0.7 L (1-2) Urine Osmolality (400-1100) mosm/kg Ur Random Sodium (40-220) mEq/L 01/01/21 Range/Units 05:52 WBC (3.98-10.04) K/mm3 RBC (3.98-5.22) M/mm3 Hgb (11.2-15.7) gm/dl Hct (34.1-44.9) % MCV (79.4-94.8) fl MCH (25.6-32.2) pg MCHC (32.2-35.5) g/dl RDW Std Deviation (36.4-46.3) fL Plt Count (182-369) K/mm3 MPV (9.4-12.3) fl Neut % (Auto) (34.0-71.1) % Lymph % (Auto) (19.3-51.7) % [place] % (Auto) (4.7-12.5) % Eos % (Auto) (0.7-5.8) Baso % (Auto) (0.1-1.2) % Neut # (Auto) (1.56-6.13) K/mm3 Lymph # (Auto) (1.18-3.74) K/mm3 [place] # (Auto) (0.24-0.36) K/mm3 Eos # (Auto) (0.04-0.36) K/mm3 Baso # (Auto) (0.01-0.08) K/mm3 Manual Slide Review PT (9.7-12.0) SECONDS INR Sodium (136-145) mEq/L Potassium (3.5-5.1) mEq/L Chloride (98-107) mEq/L Carbon Dioxide (21-32) mEq/L Anion Gap (5-15) BUN (7-18) mg/dL Creatinine (0.55-1.02) mg/dL Est Cr Clr Drug Dosing mL/min Estimated GFR (MDRD) (>60) mL/min BUN/Creatinine Ratio (14-18) Glucose (70-99) mg/dL POC Glucose 150 H (70-99) mg/dL Serum Osmolality (280-300) mosm/kg Calcium (8.5-10.1) mg/dL Magnesium (1.8-2.4) mg/dL Total Bilirubin (0.2-1.0) mg/dL AST (15-37) U/L ALT (14-59) U/L Alkaline Phosphatase (46-116) U/L C-Reactive Protein (<1.0) mg/dL Total Protein (6.4-8.2) g/dl Albumin (3.4-5.0) g/dl Globulin gm/dL Albumin/Globulin Ratio (1-2) Urine Osmolality (400-1100) mosm/kg Ur Random Sodium (40-220) mEq/L Result Diagrams: 01/01/21 05:32 01/01/21 05:32 Sepsis Event Note - Evaluation Sepsis Screening Result: No Definite Risk - Focused Exam Vital Signs: Vital Signs Temp Pulse Pulse Resp BP Pulse Ox 01/01/21 04:14 36.8 C 53 L 14 156/77 H 98 12/31/20 23:49 36.4 C 66 12 128/79 97 12/31/20 21:54 77 12/31/20 19:45 119 H 168/76 H 83 L - Problem List & Annotations (1) Weakness generalized SNOMED Code(s): 23519804 Code(s): R53.1 - WEAKNESS Status: Acute Priority: High Current Visit: Yes (2) COPD (chronic obstructive pulmonary disease) with acute bronchitis SNOMED Code(s): 445693426190029 Code(s): J44.0 - CHR OBSTRUCTIVE PULMON DISEASE WITH (ACUTE) LOWER RESP INFCT; J20.9 - ACUTE BRONCHITIS, UNSPECIFIED Status: Chronic Priority: Medium Current Visit: Yes (3) Chronic anticoagulation SNOMED Code(s): 195436545 Code(s): Z79.01 - PAD EXTRACTION TENDER (CURRENT) USE OF ANTICOAGULANTS Status: Chronic Priority: Medium Current Visit: Yes (4) Type II diabetes mellitus SNOMED Code(s): 51392102 Code(s): E11.9 - TYPE 2 DIABETES MELLITUS WITHOUT COMPLICATIONS Status: Chronic Priority: Medium Current Visit: Yes Qualifiers: Diabetes mellitus senior living insulin use: without exterminator helper termite use Diabetes mellitus complication status: with other specified complication Qualified Code(s): E11.69 - Type 2 diabetes mellitus with other specified complication - Problem List Review Problem List Initiated/Reviewed/Updated: Yes - Assessment Assessment:: 12/31/2020 This is a 80-year-old female admitted to the floor due to weakness and COVID-19 symptoms. She was essentially too weak to return to her assisted living facility. Since admission she has been doing very well and has been weaned off of oxygen. She is receiving dexamethasone and remdesivir. She was evaluated by physical therapy and Occupational Therapy who are recommending return to [facility]. She may benefit from outpatient physical therapy per their notes. She denies any current symptoms and states she feels pretty good. Labs today show a WBC of 10.70, which is likely steroid related. Hemoglobin is 12.2. Platelet are 213,000. Neutrophils are elevated 83.3%. INR is 4.84. Pharmacy is dosing warfarin and will continue to hold this. Sodium has dropped from 1 34-1 31. Patient is usually on the lower end of normal but has had some hyponatremia noted in the past. We will recheck labs in the morning. We will also check serum and urine osmolality as well as urine sodium. Potassium is 4.8. Chloride 99. Carbon dioxide 25. Anion gap is 11.8. BUN is 36. Creatinine is 1.4. GFR is 36. Renal function appears to be near baseline. Glucose has been between 162 and 198. A1c obtained yesterday was 6.5. Calcium is 8.9. Magnesium 2.1. Total bilirubin 0.2. AST is 43, ALT 40, alkaline phosphatase is 54. CRP is 9.0. Protein is 5.8. Albumin is 2.2. Vitamin D obtained yesterday was within normal limits at 44.9. Procalcitonin was slightly elevated 0.52. She has had no fevers or other overt signs of infection. Likely discharge in 1 to 2 days pending further hyponatremic work-up. 01/01/2021 The patient is a 80-year-old lady who has been having problems with weakness that has inhibited her return to assisted living. Patient had COVID-19 in November 2020. PT OT has been ordered for the patient. The patient is anticoagulated with the use of warfarin and her INR is currently therapeutic. Repeat INR has been ordered for the morning. The patient is to continue on carb constant diet. She is also on medium dose sliding scale insulin. Repeat laboratory studies have been ordered. The patient does have a history of GI bleed and her hemoglobin will be monitored. The patient has been encouraged to ambulate. The patient might require placement in a nursing facility. She should be appropriate for discharge 1 to 2 days. - Plan Plan:: Weakness generalized Low back pain Arthritis Chronic back pain Gout * Home medications as ordered * PT/OT * Case management/social work consultation COVID-19 COVID-19 vaccine series completed COPD (chronic obstructive pulmonary disease) with acute bronchitis Hypoxia, resolved * Received Bamlanivimab in ED * Dexamethasone 6 mg PO for 10 days * O2 as needed to keep saturation between 88 and 95% * I-S/Acapella * RT consultation * Airborne/contact precautions * Telemetry * Continuous pulse oximetry * As needed albuterol MDI * As needed albuterol nebulizer * As needed DuoNeb * Zinc supplementation * Daily lab checks Hyponatremia * Re-check labs in AM * Check serum and urine osmolality * Check urine sodium History of angina History of cardiac arrhythmia History of venous thromboembolism CAD (coronary artery disease) Congestive Heart failure HLD (hyperlipidemia) HTN (hypertension) H/O heart artery stent Chronic anticoagulation History of CVA (cerebrovascular accident) * No acute concerns * Home medications as ordered * Daily INR check * Pharmacy to dose warfarin * Telemetry Asthma COPD (chronic obstructive pulmonary disease) Recurrent pneumonia * No acute concerns * Home respiratory meds as ordered * RT consultation * Other treatments as above Chronic constipation * No acute concerns * As needed laxatives/stool softeners GERD (gastroesophageal reflux disease) IBS (irritable bowel syndrome) * No acute concerns * Home medications as ordered Anxiety Depression * No acute concerns * Home medications as ordered Type II diabetes mellitus Diabetic neuropathy * A1c obtained 6.5% * 4 times daily before meals and bedtime glucose checks * Low-dose sliding scale insulin * Consistent carbohydrate diet Chronic renal insufficiency * No acute concerns - patient appears at baseline * Avoid nephrotoxic medications if possible Code status: DNR/DNI PCP: Dr. Robins DVT Prophylaxis: Home warfarin with pharmacy to dose Social: Patient resides at [facility] Disposition: Patient mated to the medical floor for management of COVID-19 symptoms and generalized weakness. Likely discharge in 1 to 2 days pending progress.
[2021-01-01] MEDS: Insulin Lispro 100 Unit/ML 3 ML KwikPen SUBCUT SCH ×4 (07:59→21:47)
[2021-01-01] MEDS: Pantoprazole 40 MG Tab.CR PO SCH (08:01)
[2021-01-01] MEDS: Dexamethasone 4 MG Tab PO SCH (08:01)
[2021-01-01] MEDS: Cholecalciferol (Vitamin D3) 25 MCG Tab PO SCH (08:01)
[2021-01-01] MEDS: Zinc Sulfate 220 MG Cap PO SCH (08:01)
[2021-01-01] MEDS: Ascorbic Acid 500 MG Tab PO SCH (08:02)
[2021-01-01] MEDS: OLOPATADINE HCL 0.1% EYEBOTH SCH ×2 (08:03→20:41)
[2021-01-01] MEDS: EYE EYEBOTH SCH ×2 (08:03→20:41)
[2021-01-01] MEDS: Lisinopril 20 MG Tab PO SCH (15:24)
[2021-01-01] MEDS ORDERED: Sodium Polystyrene Sulfonate 15 GM/60 ML Susp 60 ML Bot PO ONE (17:04)
[2021-01-01] MEDS ORDERED: Warfarin 2.5 MG Tab PO SCH (18:00)
[2021-01-01] MEDS: Sertraline 50 MG Tab PO SCH (20:36)
[2021-01-01] MEDS: Rosuvastatin 10 MG Tab PO SCH (20:36)
[2021-01-01] MEDS: Allopurinol 300 MG Tab PO SCH (20:36)
--- NOTE | 2021-01-02 08:05 | PCM.DCSUM1 ---
<Esau Adkins - Last Filed: 01/02/21 13:19> Discharge Summary - Hospital Course HPI Initial Comments: This is a 80-year-old female who presents to ED on the morning of 12/29/2020 with fever, chills, nausea, vomiting, diarrhea, generalized body aches, headache, decreased appetite cough, and pleuritic chest pain. She reports symptoms began on December 22, 2020 and she tested positive for Covid that day. She reports she has had both of her Covid vaccines however she has not had her booster. She reports she was a 2 to 3 pack a day smoker for 15 years however she did quit approximately 15 years ago. In the ED twelve-lead EKG was obtained showing a sinus rhythm at 61 bpm with a probable anterior infarct, which is likely old. Temperature was 97.8 F. Pulse 65. Respirations 25. Blood pressure 169/91. Pulse ox 94% on room air. Labs are obtained showing a mild leukocytosis of 11.58. Hemoglobin is 12.9. Platelet are 148,000. Neutrophils are elevated at 79.3%. D-dimer 0.46. Sodium is low at 132. Potassium 4.3. Chloride 98. Carbon dioxide 26. Anion gap 12.3. BUN is 22. Creatinine 1.5. GFR 33. Glucose 92. Calcium 8.8. Magnesium 1.8. Total bilirubin 0.3. AST is 44, ALT 41, alkaline phosphatase 53. CRP is 16.9. Protein is 6.1. Albumin is 2.5. UA is obtained and is negative however 2+ protein, trace lysed occult blood, 5-10 urine RBCs are noted. Chest x-ray is obtained showing a slight parenchymal density within the right lateral costophrenic angle and a minimal density within the left lung base. Slight density is noted within the right upper lung. Heart size appears prominent. Tortuous thoracic aorta is seen. She was given AVM liver biopsy infusion and discharged back to [facility] living. Shortly thereafter patient return via [facility] ambulance after she was evaluated by [facility] staff who stated she was too weak for their facility. She was somewhat nauseated and was given Zofran. She is also noted to have expiratory wheezing and was given a nebulizer treatment. Oxygen saturations remained 94% on room air. She was subsequently admitted to the medical floor for management of her COVID-19 pneumonia and generalized weakness. She carries a history of angina, arrhythmias, prior VTE, CAD, heart failure, HLD, hypertension, prior stent placement, asthma, COPD, recurrent pneumonia, chronic constipation, GERD, IBS, CKD stage III, arthritis, chronic back pain, gout, CVA, diabetic neuropathy, anxiety, depression, type II DM, and is on chronic warfarin therapy. She has a DNR/DNI. Her primary care provider is Dr. Owens. Diagnosis: Stroke: No - Discharge Data Discharge Date: 01/02/21 (Admit date: 12/29/2020) Discharge Disposition: DC/Tfer to Other 70 Condition: Fair - Referral to Home Health Primary Care Physician: Jabari Robins MD - Discharge Diagnosis/Problem(s) (1) History of angina SNOMED Code(s): 757247083 ICD Code: Z86.79 - PERSONAL HISTORY OF OTHER DISEASES OF THE CIRCULATORY SYSTEM Status: Chronic Priority: Low (2) History of cardiac arrhythmia SNOMED Code(s): 829916116876151 ICD Code: Z86.79 - PERSONAL HISTORY OF OTHER DISEASES OF THE CIRCULATORY SYSTEM Status: Chronic Priority: Low (3) History of venous thromboembolism SNOMED Code(s): 291473578 ICD Code: Z86.718 - PERSONAL HISTORY OF OTHER VENOUS THROMBOSIS AND EMBOLISM Status: Chronic Priority: Medium (4) CAD (coronary artery disease) SNOMED Code(s): 18885243 ICD Code: I25.10 - ATHSCL HEART DISEASE OF [place] CORONARY ARTERY W/O ANG PCTRS Status: Chronic Priority: Medium Qualifiers: Coronary Disease-Associated Artery/Lesion type: unspecified vessel or lesion type [place] vs. transplanted heart: [place] heart Associated angina: unspecified whether angina present Qualified Code(s): I25.10 - Atherosclerotic heart disease of [place] coronary artery without angina pectoris (5) HLD (hyperlipidemia) SNOMED Code(s): 43710802 ICD Code: E78.5 - HYPERLIPIDEMIA, UNSPECIFIED Status: Chronic Priority: Low Qualifiers: Hyperlipidemia type: unspecified Qualified Code(s): E78.5 - Hyperlipidemia, unspecified (6) HTN (hypertension) SNOMED Code(s): 33680929 ICD Code: I10 - ESSENTIAL (PRIMARY) HYPERTENSION Status: Chronic Priority: Medium Qualifiers: Hypertension type: unspecified Qualified Code(s): I10 - Essential (primary) hypertension (7) H/O heart artery stent SNOMED Code(s): 879919211, 251448269 ICD Code: Z95.5 - PRESENCE OF CORONARY ANGIOPLASTY IMPLANT AND GRAFT Status: Chronic Priority: Low (8) Asthma SNOMED Code(s): 766035622 ICD Code: J45.909 - UNSPECIFIED ASTHMA, UNCOMPLICATED Status: Chronic Priority: Medium Qualifiers: Asthma severity: unspecified severity Asthma persistence: unspecified Asthma complication type: unspecified Qualified Code(s): J45.909 - Unspecified asthma, uncomplicated (9) COPD (chronic obstructive pulmonary disease) SNOMED Code(s): 42954096 ICD Code: J44.9 - CHRONIC OBSTRUCTIVE PULMONARY DISEASE, UNSPECIFIED St atus: Chronic Priority: Medium Qualifiers: COPD type: unspecified COPD Qualified Code(s): J44.9 - Chronic obstructive pulmonary disease, unspecified (10) Recurrent pneumonia SNOMED Code(s): 544932146 ICD Code: J18.9 - PNEUMONIA, UNSPECIFIED ORGANISM Status: Chronic Priority: Medium (11) Chronic constipation SNOMED Code(s): 479295308 ICD Code: K59.09 - OTHER CONSTIPATION Status: Chronic Priority: Low (12) GERD (gastroesophageal reflux disease) SNOMED Code(s): 628911107 ICD Code: K21.9 - GASTRO-ESOPHAGEAL REFLUX DISEASE WITHOUT ESOPHAGITIS Status: Chronic Priority: Low Qualifiers: Esophagitis presence: esophagitis presence not specified Qualified Code(s): K21.9 - Gastro-esophageal reflux disease without esophagitis (13) IBS (irritable bowel syndrome) SNOMED Code(s): 34158044 ICD Code: K58.9 - IRRITABLE BOWEL SYNDROME WITHOUT DIARRHEA Status: Chronic Priority: Low Qualifiers: Irritable bowel syndrome type: unspecified Qualified Code(s): K58.9 - Irritable bowel syndrome without diarrhea (14) Arthritis SNOMED Code(s): 7911542 ICD Code: M19.90 - UNSPECIFIED OSTEOARTHRITIS, UNSPECIFIED SITE Status: Chronic Priority: Low (15) Chronic back pain SNOMED Code(s): 653839877 ICD Code: M54.9 - DORSALGIA, UNSPECIFIED; G89.29 - OTHER CHRONIC PAIN Status: Chronic Priority: Low Qualifiers: Back pain location: back pain in unspecified location Back pain laterality: unspecified Qualified Code(s): M54.9 - Dorsalgia, unspecified; G89.29 - Other chronic pain (16) Gout SNOMED Code(s): 77896263 ICD Code: M10.9 - GOUT, UNSPECIFIED Status: Chronic Priority: Low Qualifiers: Gout site: unspecified site Gout etiology: unspecified cause Chronicity: chronic Presence of tophus: without tophus Qualified Code(s): M1A.9XX0 - Chronic gout, unspecified, without tophus (tophi) (17) History of CVA (cerebrovascular accident) SNOMED Code(s): 149022213 ICD Code: Z86.73 - PRSNL HX OF TIA (TIA), AND CEREB INFRC W/O RESID DEFICITS Status: Chronic Priority: Low (18) Diabetic neuropathy SNOMED Code(s): 400864850, 093395165, 587676502 ICD Code: E11.40 - TYPE 2 DIABETES MELLITUS WITH DIABETIC NEUROPATHY, UNSP Status: Chronic Priority: Low Qualifiers: Diabetes mellitus type: type 2 Diabetes mellitus complication detail: with other neurological complication Qualified Code(s): E11.49 - Type 2 diabetes mellitus with other diabetic neurological complication (19) Anxiety SNOMED Code(s): 94198071 ICD Code: F41.9 - ANXIETY DISORDER, UNSPECIFIED Status: Chronic Priority: Low (20) Depression SNOMED Code(s): 27793627 ICD Code: F32.A - DEPRESSION, UNSPECIFIED Status: Chronic Priority: Low Qualifiers: Depression Type: other depression Qualified Code(s): F32.89 - Other specified depressive episodes (21) Type II diabetes mellitus SNOMED Code(s): 68387815 ICD Code: E11.9 - TYPE 2 DIABETES MELLITUS WITHOUT COMPLICATIONS Status: Chronic Priority: Medium Qualifiers: Diabetes mellitus custodial insulin use: without superintendent terminal use Diabetes mellitus complication status: with other specified complication Qualified Code(s): E11.69 - Type 2 diabetes mellitus with other specified complication (22) Chronic anticoagulation SNOMED Code(s): 514568758 ICD Code: Z79.01 - IMAGERY ANALYST (CURRENT) USE OF ANTICOAGULANTS Status: Chronic Priority: Medium (23) COVID-19 vaccine series completed SNOMED Code(s): 807991804, 254628662 ICD Code: Z92.29 - PERSONAL HISTORY OF OTHER DRUG THERAPY Status: Chronic Priority: Medium (24) COVID-19 SNOMED Code(s): 625810329 ICD Code: U07.1 - COVID-19 Status: Acute Priority: High (25) Weakness generalized SNOMED Code(s): 23224509 ICD Code: R53.1 - WEAKNESS Status: Resolved Priority: High (26) COPD (chronic obstructive pulmonary disease) with acute bronchitis SNOMED Code(s): 642190013835398 ICD Code: J44.0 - CHR OBSTRUCTIVE PULMON DISEASE WITH (ACUTE) LOWER RESP INFCT; J20.9 - ACUTE BRONCHITIS, UNSPECIFIED Status: Chronic Priority: Medium (27) Chronic renal insufficiency SNOMED Code(s): 515068226 ICD Code: N18.9 - CHRONIC KIDNEY DISEASE, UNSPECIFIED Status: Chronic Priority: Medium Qualifiers: Chronic kidney disease stage: stage 3 (moderate) Chronic kidney disease stage 3 subtype: stage 3b (GFR 30-44) Qualified Code(s): N18.32 - Chronic kidney disease, stage 3b (28) Congestive heart failure SNOMED Code(s): 58136780 ICD Code: I50.9 - HEART FAILURE, UNSPECIFIED Status: Chronic Priority: Low Qualifiers: Heart failure type: unspecified Heart failure chronicity: acute on chronic Qualified Code(s): I50.9 - Heart failure, unspecified (29) Hypoxia SNOMED Code(s): 681759881 ICD Code: R09.02 - HYPOXEMIA Status: Resolved Priority: High (30) Low back pain SNOMED Code(s): 869724855 ICD Code: M54.5 - LOW BACK PAIN * DO NOT USE * Status: Chronic Priority: Low Qualifiers: Chronicity: chronic Back pain laterality: left Sciatica presence: with sciatica Sciatica laterality: sciatica of left side Qualified Code(s): M54.42 - Lumbago with sciatica, left side; G89.29 - Other chronic pain (31) Hyponatremia SNOMED Code(s): 12791114 ICD Code: E87.1 - HYPO-OSMOLALITY AND HYPONATREMIA Status: Resolved Priority: High (32) Hyperkalemia SNOMED Code(s): 98782402 ICD Code: E87.5 - HYPERKALEMIA Status: Resolved Priority: High - Patient Summary/Data Consults: Consultations 12/29/20 19:58 OT Evaluation and Treatment [CONS] Routine PT Evaluation and Treatment [CONS] Routine 12/30/20 08:50 Consult to Case Management/Entry Level Project Engineer [CONS] Routine Consult to Respiratory Therapy [Respiratory Care Assess and Treatment] [CONS] Routine Labs Pending at D/C: None Recommended Follow-up Testing/Procedures: Recommend follow-up with PCP within 5 to 7 days of discharge, sooner if needed. * Patient discharged on zinc supplementation. * No other new medications at discharge. No medications discontinued at discharge. * Discharged on home dose of warfarin. * Order placed for repeat INR on 01/06/2021 with results to PCP. * Recommend repeat CBC, CMP, and magnesium in follow-up. Consider repeat chest x-ray. * Discharged back to [facility] facility today. * PT/OT recommending no services after discharge. Hospital Course: This is a 80-year-old female admitted to the floor due to weakness and COVID-19 symptoms. On admission she was requiring 2 L of oxygen via nasal cannula. She was started on dexamethasone and remdesivir. She was able to be weaned off of oxygen rather rapidly. She was evaluated by physical therapy and Occupational Therapy who recommended return to assisted living with no further outpatient services. She is on chronic anticoagulation utilizing warfarin and pharmacy did dose her Coumadin throughout her stay. She was noted to be mildly hyponatremic but asymptomatic. Potassium was elevated at 5.7 and she was given 115 g dose of Kayexalate with good response. Sodium did return to normal limits. She is otherwise been doing well. She was started on zinc supplementation will be discharged on this. Otherwise no new medications and no changes to her current medications. Orders were placed for a recheck of her INR on 01/06/2021 with results to her primary care provider. She discharged back to [facility] today. She will not be discharged on any steroid or further Covid treatment as she has been doing well. She completed her isolation/quarantine while here. She was instructed to follow [facility]'s direction on that. Recommend follow-up with primary care provider within 5 to 7 days of discharge, sooner if needed. Recommend repeat CBC, CMP, and magnesium in follow-up. - Patient Instructions Diet: Diabetic Diet Activity: As Tolerated Driving: Do Not Drive Showering/Bathing: May Shower Notify Provider of: Fever, Increased Pain, Nausea and/or Vomiting Other/Special Instructions: Follow-up with primary care provider within 5 to 7 days of discharge, sooner if needed. Please follow [facility]'s quarantine directions. You are not requiring any oxygen at discharge and none will be provided. Resume home medications as directed. Recheck INR on 01/06/2021. An order for this was provided. Should symptoms return or worsen contact your primary care provider or return to the emergency room. - Discharge Plan *PRESCRIPTION DRUG MONITORING PROGRAM REVIEWED*: No *COPY OF PRESCRIPTION DRUG MONITORING REPORT IN PATIENT CHRISTOPHE: No Prescriptions/Med Rec: Zinc Sulfate [Zincate] 220 mg PO DAILY #20 cap Home Medications: Home Meds Furosemide 40 mg PO DAILY 10/16/18 [History] Nitroglycerin 0.4 mg PO Q5M PRN MDD 3 doses 10/16/18 [History] Pantoprazole [ProTONIX] 40 mg PO DAILY 10/16/18 [History] Potassium Chloride 20 meq PO DAILY 10/16/18 [History] Sertraline [Zoloft] 50 mg PO BEDTIME 10/16/18 [History] allopurinoL [Zyloprim] 300 mg PO BEDTIME 10/16/18 [History] Albuterol [Ventolin HFA] 2 puff INH BID PRN 11/20/19 [History] Rosuvastatin Calcium [Crestor] 40 mg PO BEDTIME 11/20/19 [History] lisinopriL [Lisinopril] 20 mg PO DAILY 11/20/19 [History] Warfarin [Coumadin] 2.5 mg PO ASDIRECTED 02/22/20 [History] Warfarin [Coumadin] 5 mg PO MOFR 02/22/20 [History] Fluticasone Propionate [Flovent HFA 220 MCG] 1 puff PO BID 04/14/20 [History] Ascorbic Acid [Vitamin C] 250 mg PO DAILY 08/31/20 [History] Ferrous Sulfate 325 mg PO MOWEFR 08/31/20 [History] Olopatadine HCl [Pataday Once Daily Relief] 1 drop EYEBOTH BID 08/31/20 [History] polyethylene glycoL 3350 [MiraLAX] 17 gm PO DAILY PRN 08/31/20 [History] Acetaminophen 1,000 mg PO Q6HR PRN 12/30/20 [History] Calcium Carbonate [Tums] 200 mg PO Q3HR PRN 12/30/20 [History] Cholecalciferol (Vitamin D3) [Vitamin D3] 25 mcg PO DAILY 12/30/20 [History] Guar Gum [Benefiber] 2 tsp PO TID 12/30/20 [History] Hydrocodone/Acetaminophen [HYDROcodone-Acetaminophen 5-325 MG] 1 tab PO Q6HR PRN 12/30/20 [History] Ipratropium/Albuterol Sulfate [Iprat-Albut 0.5-3(2.5) mg/3 ml] 1 inh INH BID PRN 12/30/20 [History] Mometasone Furoate [Nasonex [place]] 1 spray CONRAD BID 12/30/20 [History] Ondansetron [Zofran ODT] 4 mg PO Q4HR PRN 12/30/20 [History] Sennosides/Docusate Sodium [Senna Plus 8.6-50 mg Softgel] 1 tab PO DAILY 12/30/20 [History] Zinc Sulfate [Zincate] 220 mg PO DAILY #20 cap 01/02/21 [Rx] Oxygen Therapy Mode: Room Air Patient Handouts: COVID-19 Frequently Asked Questions, COVID-19, 10 Things You Can Do to Manage Your COVID-19 Symptoms at Home - CDC (08/22/2020), Sepsis, Self Care, Adult Forms: ED Department Discharge Referrals: Jabari Robins MD [Primary Care Provider] - 01/12/21 11:15 am (this is your check in time for your appointment.) - Discharge Summary/Plan Comment DC Time >30 min.: Yes Total # of Minutes for Discharge Time: 40 - General Info Date of Service: 01/02/21 Admission Dx/Problem (Free Text: Admission Diagnosis/Problem Admission Diagnosis/Problem Weakness Functional Status: Reports: Pain Controlled, Tolerating Diet, Ambulating, Urinating. Denies: New Symptoms - Review of Systems General: Reports: No Symptoms. Denies: Fever, Weakness, Fatigue, Malaise, Chills HEENT: Reports: No Symptoms. Denies: Headaches, Sore Throat Pulmonary: Reports: No Symptoms. Denies: Shortness of Breath, Cough, Sputum, Wheezing Cardiovascular: Reports: No Symptoms. Denies: Chest Pain, Palpitations, Dyspnea on Exertion, Edema Gastrointestinal: Reports: Constipation. Denies: Abdominal Pain, Diarrhea, Nausea, Vomiting Genitourinary: Reports: No Symptoms. Denies: Pain Musculoskeletal: Reports: No Symptoms Skin: Reports: No Symptoms. Denies: Cyanosis Neurological: Reports: No Symptoms. Denies: Confusion, Dizziness, Headache, Numbness, Seizure, Tingling, Difficulty Walking, Weakness, Gait Disturbance Psychiatric: Reports: No Symptoms. Denies: Confusion - Patient Data Vitals - Most Recent: Last Vital Signs Temp 97.7 F 01/02/21 04:00 Pulse 42 L 01/02/21 04:00 Resp 12 01/02/21 04:00 BP 145/76 H 01/02/21 04:00 Pulse Ox 97 01/02/21 04:00 Weight - Most Recent: 72.892 kg I&O - Last 24 hours: Intake & Output 01/01/21 01/02/21 01/02/21 22:59 06:59 14:59 Intake Total 975 400 Output Total 800 700 Balance 175 -300 Lab Results - Last 24 hrs: Laboratory Results - last 24 hr 01/01/21 01/01/21 01/01/21 Range/Units 12:01 16:19 21:40 WBC (3.98-10.04) K/mm3 RBC (3.98-5.22) M/mm3 Hgb (11.2-15.7) gm/dl Hct (34.1-44.9) % MCV (79.4-94.8) fl MCH (25.6-32.2) pg MCHC (32.2-35.5) g/dl RDW Std Deviation (36.4-46.3) fL Plt Count (182-369) K/mm3 MPV (9.4-12.3) fl Neut % (Auto) (34.0-71.1) % Lymph % (Auto) (19.3-51.7) % [place] % (Auto) (4.7-12.5) % Eos % (Auto) (0.7-5.8) Baso % (Auto) (0.1-1.2) % Neut # (Auto) (1.56-6.13) K/mm3 Lymph # (Auto) (1.18-3.74) K/mm3 [place] # (Auto) (0.24-0.36) K/mm3 Eos # (Auto) (0.04-0.36) K/mm3 Baso # (Auto) (0.01-0.08) K/mm3 Manual Slide Review PT (9.7-12.0) SECONDS INR D-Dimer, Quantitative (0.19-0.50) mg/L Sodium (136-145) mEq/L Potassium (3.5-5.1) mEq/L Chloride (98-107) mEq/L Carbon Dioxide (21-32) mEq/L Anion Gap (5-15) BUN (7-18) mg/dL Creatinine (0.55-1.02) mg/dL Est Cr Clr Drug Dosing mL/min Estimated GFR (MDRD) (>60) mL/min BUN/Creatinine Ratio (14-18) Glucose (70-99) mg/dL POC Glucose 178 H 171 H 177 H (70-99) mg/dL Calcium (8.5-10.1) mg/dL Magnesium (1.8-2.4) mg/dL Total Bilirubin (0.2-1.0) mg/dL AST (15-37) U/L ALT (14-59) U/L Alkaline Phosphatase (46-116) U/L C-Reactive Protein (<1.0) mg/dL Total Protein (6.4-8.2) g/dl Albumin (3.4-5.0) g/dl Globulin gm/dL Albumin/Globulin Ratio (1-2) 01/02/21 01/02/21 01/02/21 Range/Units 05:37 05:38 05:38 WBC 9.45 (3.98-10.04) K/mm3 RBC 4.04 (3.98-5.22) M/mm3 Hgb 12.0 (11.2-15.7) gm/dl Hct 37.6 (34.1-44.9) % MCV 93.1 (79.4-94.8) fl MCH 29.7 (25.6-32.2) pg MCHC 31.9 L (32.2-35.5) g/dl RDW Std Deviation 46.9 H (36.4-46.3) fL Plt Count 219 (182-369) K/mm3 MPV 10.9 (9.4-12.3) fl Neut % (Auto) 78.1 H (34.0-71.1) % Lymph % (Auto) 13.3 L (19.3-51.7) % [place] % (Auto) 7.8 (4.7-12.5) % Eos % (Auto) 0 L (0.7-5.8) Baso % (Auto) 0.1 (0.1-1.2) % Neut # (Auto) 7.37 H (1.56-6.13) K/mm3 Lymph # (Auto) 1.26 (1.18-3.74) K/mm3 [place] # (Auto) 0.74 H (0.24-0.36) K/mm3 Eos # (Auto) 0.00 L (0.04-0.36) K/mm3 Baso # (Auto) 0.01 (0.01-0.08) K/mm3 Manual Slide Review Normal smear PT 20.6 H D (9.7-12.0) SECONDS INR 1.90 D-Dimer, Quantitative 0.46 (0.19-0.50) mg/L Sodium (136-145) mEq/L Potassium (3.5-5.1) mEq/L Chloride (98-107) mEq/L Carbon Dioxide (21-32) mEq/L Anion Gap (5-15) BUN (7-18) mg/dL Creatinine (0.55-1.02) mg/dL Est Cr Clr Drug Dosing mL/min Estimated GFR (MDRD) (>60) mL/min BUN/Creatinine Ratio (14-18) Glucose (70-99) mg/dL POC Glucose 139 H (70-99) mg/dL Calcium (8.5-10.1) mg/dL Magnesium (1.8-2.4) mg/dL Total Bilirubin (0.2-1.0) mg/dL AST (15-37) U/L ALT (14-59) U/L Alkaline Phosphatase (46-116) U/L C-Reactive Protein (<1.0) mg/dL Total Protein (6.4-8.2) g/dl Albumin (3.4-5.0) g/dl Globulin gm/dL Albumin/Globulin Ratio (1-2) 01/02/ Range/Units 05:38 WBC (3.98-10.04) K/mm3 RBC (3.98-5.22) M/mm3 Hgb (11.2-15.7) gm/dl Hct (34.1-44.9) % MCV (79.4-94.8) fl MCH (25.6-32.2) pg MCHC (32.2-35.5) g/dl RDW Std Deviation (36.4-46.3) fL Plt Count (182-369) K/mm3 MPV (9.4-12.3) fl Neut % (Auto) (34.0-71.1) % Lymph % (Auto) (19.3-51.7) % [place] % (Auto) (4.7-12.5) % Eos % (Auto) (0.7-5.8) Baso % (Auto) (0.1-1.2) % Neut # (Auto) (1.56-6.13) K/mm3 Lymph # (Auto) (1.18-3.74) K/mm3 [place] # (Auto) (0.24-0.36) K/mm3 Eos # (Auto) (0.04-0.36) K/mm3 Baso # (Auto) (0.01-0.08) K/mm3 Manual Slide Review PT (9.7-12.0) SECONDS INR D-Dimer, Quantitative (0.19-0.50) mg/L Sodium 136 (136-145) mEq/L Potassium 4.8 (3.5-5.1) mEq/L Chloride 103 (98-107) mEq/L Carbon Dioxide 24 (21-32) mEq/L Anion Gap 13.8 (5-15) BUN 58 H (7-18) mg/dL Creatinine 1.4 H (0.55-1.02) mg/dL Est Cr Clr Drug Dosing 29.32 mL/min Estimated GFR (MDRD) 36 (>60) mL/min BUN/Creatinine Ratio 41.4 H (14-18) Glucose 151 H (70-99) mg/dL POC Glucose (70-99) mg/dL Calcium 9.6 (8.5-10.1) mg/dL Magnesium 2.0 (1.8-2.4) mg/dL Total Bilirubin 0.1 L (0.2-1.0) mg/dL AST 26 (15-37) U/L ALT 52 (14-59) U/L Alkaline Phosphatase 50 (46-116) U/L C-Reactive Protein 1.4 H* (<1.0) mg/dL Total Protein 5.5 L (6.4-8.2) g/dl Albumin 2.2 L (3.4-5.0) g/dl Globulin 3.3 gm/dL Albumin/Globulin Ratio 0.7 L (1-2) Med Orders - Current: Current Medications Acetaminophen (Acetaminophen 325 Mg Tab) 650 mg PO Q4H PRN PRN Reason: Pain (Mild 1-3)/fever Albuterol (Albuterol 0.083% 2.5 Mg/3 Ml Neb Soln) 2.5 mg NEB Q2H PRN PRN Reason: Shortness Of Breath/wheezing Albuterol (Albuterol 6.7 Gm Inhaler) 0 gm INH BID PRN PRN Reason: Shortness of Breath Albuterol/Ipratropium (Albuterol/Ipratropium 3.0-0.5 Mg/3 Ml Neb Soln) 3 ml NEB Q4H PRN PRN Reason: Shortness Of Breath/wheezing Allopurinol (Allopurinol 300 Mg Tab) 300 mg PO BEDTIME [facility] Last Admin: 01/01/21 20:36 Dose: 300 mg Documented by: Ascorbic Acid (Ascorbic Acid 500 Mg Tab) 250 mg PO DAILY [facility] Last Admin: 01/01/21 08:02 Dose: 250 mg Documented by: Calcium Carbonate/Glycine (Calcium Carbonate 500 Mg Tab.Chew) 500 mg PO Q3H PRN PRN Reason: Indigestion Cholecalciferol (Cholecalciferol (Vitamin D3) 25 Mcg Tab) 25 mcg PO DAILY [facility] Last Admin: 01/01/21 08:01 Dose: 25 mcg Documented by: Dexamethasone (Dexamethasone 4 Mg Tab) 6 mg PO DAILY [facility] Stop: 01/07/21 09:01 Last Admin: 01/01/21 08:01 Dose: 6 mg Documented by: Ferrous Sulfate (Ferrous Sulfate 324 Mg Tab.Ec) 324 mg PO MOWEFR [facility] Last Admin: 12/31/20 08:31 Dose: 324 mg Documented by: Guaifenesin/Dextromethorphan (Guaifenesin/Dextromethorphan 100-10 Mg/5 Ml Soln 5 Ml Cup) 10 ml PO Q4H PRN PRN Reason: Cough Last Admin: 12/31/20 20:06 Dose: 10 ml Documented by: Insulin Human Lispro (Insulin Lispro 100 Unit/Ml 3 Ml Kwikpen) 0 unit SUBCUT QIDACANDBED [facility]; Protocol Last Admin: 01/01/21 21:47 Dose: 1 unit Documented by: Lisinopril (Lisinopril 20 Mg Tab) 20 mg PO DAILY [facility] Last Admin: 01/01/21 15:24 Dose: 20 mg Documented by: Nitroglycerin (Nitroglycerin 0.4 Mg Tab.Sl) 0.4 mg SL Q5M PRN PRN Reason: Chest Pain Olopatadine Hcl 0.1% (Eye Drops Ptom) 1 drop EYEBOTH BID [facility] Last Admin: 01/01/21 20:41 Dose: 1 drop Documented by: Ondansetron HCl (Ondansetron 4 Mg/2 Ml Sdv) 4 mg IV Q6H PRN PRN Reason: Nausea/Vomiting Ondansetron HCl (Ondansetron 4 Mg Tab.Dis) 4 mg PO Q4H PRN PRN Reason: Nausea Pantoprazole Sodium (Pantoprazole 40 Mg Tab.Cr) 40 mg PO DAILY [facility] Last Admin: 01/01/21 08:01 Dose: 40 mg Documented by: Polyethylene Glycol (Polyethylene Glycol 3350 Powder 17 Gm Packet) 17 gm PO DAILY PRN PRN Reason: Constipation Last Admin: 12/31/20 05:42 Dose: 17 gm Documented by: Rosuvastatin Calcium (Rosuvastatin 10 Mg Tab) 40 mg PO BEDTIME [facility] Last Admin: 01/01/21 20:36 Dose: 40 mg Documented by: Sertraline HCl (Sertraline 50 Mg Tab) 50 mg PO BEDTIME [facility] Last Admin: 01/01/21 20:36 Dose: 50 mg Documented by: Sodium Chloride (Sodium Chloride 0.9% 10 Ml Syringe) 10 ml FLUSH ASDIRECTED PRN PRN Reason: Keep Vein Open Last Admin: 12/29/20 19:35 Dose: 10 ml Documented by: Warfarin Sodium (Pharmacy To Dose - Warfarin) 1 dose .XX ASDIRECTED PRN PRN Reason: RX TO DOSE WARFARIN Zinc Sulfate (Zinc Sulfate 220 Mg Cap) 220 mg PO DAILY [facility] Last Admin: 01/01/21 08:01 Dose: 220 mg Documented by: Discontinued Medications Albuterol (Albuterol 0.083% 2.5 Mg/3 Ml Neb Soln) 2.5 mg NEB ONETIME ONE Stop: 12/29/20 18:44 Last Admin: 12/29/20 19:36 Dose: 2.5 mg Documented by: Albuterol/Ipratropium (Albuterol/Ipratropium 3.0-0.5 Mg/3 Ml Neb Soln) ml INH BID PRN PRN Reason: sob Magnesium Hydroxide (Magnesium Hydroxide 400 Mg/5 Ml Susp 30 Ml Cup) 30 ml PO ONETIME ONE Stop: 12/31/20 16:10 Last Admin: 12/31/20 17:28 Dose: 30 ml Documented by: Olopatadine Hcl 0.1% (Eye Drops Ptom) 1 drop EYEBOTH BID [facility] Last Admin: 12/30/20 09:48 Dose: Not Given Documented by: Ondansetron HCl (Ondansetron 4 Mg/2 Ml Sdv) 4 mg IVPUSH ONETIME ONE Stop: 12/29/20 18:48 Last Admin: 12/29/20 20:00 Dose: 4 mg Documented by: Sodium Polystyrene Sulfonate (Sodium Polystyrene Sulfonate 15 Gm/60 Ml Susp 60 Ml Bot) 15 gm PO ONETIME ONE Stop: 01/01/21 17:05 Last Admin: 01/01/21 17:33 Dose: 15 gm Documented by: Warfarin Sodium (Warfarin Sliding Scale) 0 each PO QPM [facility] Stop: 12/30/20 18:01 Last Admin: 12/30/20 18:00 Dose: Not Given Documented by: Warfarin Sodium (Warfarin Sliding Scale) 0 each PO QPM [facility] Stop: 12/31/20 18:01 Last Admin: 12/31/20 17:30 Dose: Not Given Documented by: Warfarin Sodium (Warfarin 2.5 Mg Tab) 2.5 mg PO QPM [facility] Stop: 01/01/21 18:01 Last Admin: 01/01/21 17:34 Dose: 2.5 mg Documented by: - Exam Quality Assessment: Reports: DVT Prophylaxis. Denies: Supplemental Oxygen, Urine Catheter General: Reports: Alert, Oriented, Cooperative, No Acute Distress HEENT: Reports: Pupils Equal, Pupils Reactive, Mucous Membr. Moist/[place] Neck: Reports: Supple, Trachea Midline Lungs: Reports: Clear to Auscultation, Normal Respiratory Effort Cardiovascular: Reports: Regular Rate, Irregular Rhythm GI/Abdominal Exam: Normal Bowel Sounds, Soft, Non-Tender, No Distention (Female) Exam: Deferred Rectal (Female) Exam: Deferred Back Exam: Reports: Normal Inspection, Full Range of Motion Extremities: Normal Inspection, Normal Range of Motion, Non-Tender, No Pedal Edema, Normal Capillary Refill Skin: Reports: Warm, Dry, Intact Neurological: Reports: No New Focal Deficit Psy/Mental Status: Reports: Alert, Normal Affect, Normal Mood <Andrzej Smith - Last Filed: 01/02/21 13:38> Discharge Summary - Referral to Home Health Primary Care Physician: Jabari Robins MD - Discharge Diagnosis/Problem(s) (1) Weakness generalized SNOMED Code(s): 30042288 ICD Code: R53.1 - WEAKNESS Status: Resolved Priority: High (2) COPD (chronic obstructive pulmonary disease) with acute bronchitis SNOMED Code(s): 297729277602811 ICD Code: J44.0 - CHR OBSTRUCTIVE PULMON DISEASE WITH (ACUTE) LOWER RESP INFCT; J20.9 - ACUTE BRONCHITIS, UNSPECIFIED Status: Chronic Priority: Medium (3) Chronic anticoagulation SNOMED Code(s): 922250764 ICD Code: Z79.01 - IMAGERY ANALYST (CURRENT) USE OF ANTICOAGULANTS Status: Chronic Priority: Medium (4) Type II diabetes mellitus SNOMED Code(s): 25460973 ICD Code: E11.9 - TYPE 2 DIABETES MELLITUS WITHOUT COMPLICATIONS Status: Chronic Priority: Medium Qualifiers: Diabetes mellitus custodial insulin use: without superintendent terminal use Diabetes mellitus complication status: with other specified complication Qualified C ode(s): E11.69 - Type 2 diabetes mellitus with other specified complication - Patient Summary/Data Consults: Consultations 12/29/20 19:58 OT Evaluation and Treatment [CONS] Routine PT Evaluation and Treatment [CONS] Routine 12/30/20 08:50 Consult to Case Management/Entry Level Project Engineer [CONS] Routine Consult to Respiratory Therapy [Respiratory Care Assess and Treatment] [CONS] Routine - Patient Data Vitals - Most Recent: Last Vital Signs Temp 36.3 C 01/02/21 08:00 Pulse 47 L 01/02/21 08:00 Resp 16 01/02/21 08:00 BP 152/70 H 01/02/21 08:27 Pulse Ox 100 01/02/21 08:00 I&O - Last 24 hours: Intake & Output 01/01/21 01/02/21 01/02/21 22:59 06:59 14:59 Intake Total 1180 400 Output Total 800 700 Balance 380 -300 Lab Results - Last 24 hrs: Laboratory Results - last 24 hr 01/01/21 01/01/21 01/02/21 Range/Units 16:19 21:40 05:37 WBC (3.98-10.04) K/mm3 RBC (3.98-5.22) M/mm3 Hgb (11.2-15.7) gm/dl Hct (34.1-44.9) % MCV (79.4-94.8) fl MCH (25.6-32.2) pg MCHC (32.2-35.5) g/dl RDW Std Deviation (36.4-46.3) fL Plt Count (182-369) K/mm3 MPV (9.4-12.3) fl Neut % (Auto) (34.0-71.1) % Lymph % (Auto) (19.3-51.7) % [place] % (Auto) (4.7-12.5) % Eos % (Auto) (0.7-5.8) Baso % (Auto) (0.1-1.2) % Neut # (Auto) (1.56-6.13) K/mm3 Lymph # (Auto) (1.18-3.74) K/mm3 [place] # (Auto) (0.24-0.36) K/mm3 Eos # (Auto) (0.04-0.36) K/mm3 Baso # (Auto) (0.01-0.08) K/mm3 Manual Slide Review PT (9.7-12.0) SECONDS INR D-Dimer, Quantitative (0.19-0.50) mg/L Sodium (136-145) mEq/L Potassium (3.5-5.1) mEq/L Chloride (98-107) mEq/L Carbon Dioxide (21-32) mEq/L Anion Gap (5-15) BUN (7-18) mg/dL Creatinine (0.55-1.02) mg/dL Est Cr Clr Drug Dosing mL/min Estimated GFR (MDRD) (>60) mL/min BUN/Creatinine Ratio (14-18) Glucose (70-99) mg/dL POC Glucose 171 H 177 H 139 H (70-99) mg/dL Calcium (8.5-10.1) mg/dL Magnesium (1.8-2.4) mg/dL Total Bilirubin (0.2-1.0) mg/dL AST (15-37) U/L ALT (14-59) U/L Alkaline Phosphatase (46-116) U/L C-Reactive Protein (<1.0) mg/dL Total Protein (6.4-8.2) g/dl Albumin (3.4-5.0) g/dl Globulin gm/dL Albumin/Globulin Ratio (1-2) 01/02/21 01/02/21 01/02/21 Range/Units 05:38 05:38 05:38 WBC 9.45 (3.98-10.04) K/mm3 RBC 4.04 (3.98-5.22) M/mm3 Hgb 12.0 (11.2-15.7) gm/dl Hct 37.6 (34.1-44.9) % MCV 93.1 (79.4-94.8) fl MCH 29.7 (25.6-32.2) pg MCHC 31.9 L (32.2-35.5) g/dl RDW Std Deviation 46.9 H (36.4-46.3) fL Plt Count 219 (182-369) K/mm3 MPV 10.9 (9.4-12.3) fl Neut % (Auto) 78.1 H (34.0-71.1) % Lymph % (Auto) 13.3 L (19.3-51.7) % [place] % (Auto) 7.8 (4.7-12.5) % Eos % (Auto) 0 L (0.7-5.8) Baso % (Auto) 0.1 (0.1-1.2) % Neut # (Auto) 7.37 H (1.56-6.13) K/mm3 Lymph # (Auto) 1.26 (1.18-3.74) K/mm3 [place] # (Auto) 0.74 H (0.24-0.36) K/mm3 Eos # (Auto) 0.00 L (0.04-0.36) K/mm3 Baso # (Auto) 0.01 (0.01-0.08) K/mm3 Manual Slide Review Normal smear PT 20.6 H D (9.7-12.0) SECONDS INR 1.90 D-Dimer, Quantitative 0.46 (0.19-0.50) mg/L Sodium 136 (136-145) mEq/L Potassium 4.8 (3.5-5.1) mEq/L Chloride 103 (98-107) mEq/L Carbon Dioxide 24 (21-32) mEq/L Anion Gap 13.8 (5-15) BUN 58 H (7-18) mg/dL Creatinine 1.4 H (0.55-1.02) mg/dL Est Cr Clr Drug Dosing 29.32 mL/min Estimated GFR (MDRD) 36 (>60) mL/min BUN/Creatinine Ratio 41.4 H (14-18) Glucose 151 H (70-99) mg/dL POC Glucose (70-99) mg/dL Calcium 9.6 (8.5-10.1) mg/dL Magnesium 2.0 (1.8-2.4) mg/dL Total Bilirubin 0.1 L (0.2-1.0) mg/dL AST 26 (15-37) U/L ALT 52 (14-59) U/L Alkaline Phosphatase 50 (46-116) U/L C-Reactive Protein 1.4 H* (<1.0) mg/dL Total Protein 5.5 L (6.4-8.2) g/dl Albumin 2.2 L (3.4-5.0) g/dl Globulin 3.3 gm/dL Albumin/Globulin Ratio 0.7 L (1-2) 01/02/ Range/Units 10:34 WBC (3.98-10.04) K/mm3 RBC (3.98-5.22) M/mm3 Hgb (11.2-15.7) gm/dl Hct (34.1-44.9) % MCV (79.4-94.8) fl MCH (25.6-32.2) pg MCHC (32.2-35.5) g/dl RDW Std Deviation (36.4-46.3) fL Plt Count (182-369) K/mm3 MPV (9.4-12.3) fl Neut % (Auto) (34.0-71.1) % Lymph % (Auto) (19.3-51.7) % [place] % (Auto) (4.7-12.5) % Eos % (Auto) (0.7-5.8) Baso % (Auto) (0.1-1.2) % Neut # (Auto) (1.56-6.13) K/mm3 Lymph # (Auto) (1.18-3.74) K/mm3 [place] # (Auto) (0.24-0.36) K/mm3 Eos # (Auto) (0.04-0.36) K/mm3 Baso # (Auto) (0.01-0.08) K/mm3 Manual Slide Review PT (9.7-12.0) SECONDS INR D-Dimer, Quantitative (0.19-0.50) mg/L Sodium (136-145) mEq/L Potassium (3.5-5.1) mEq/L Chloride (98-107) mEq/L Carbon Dioxide (21-32) mEq/L Anion Gap (5-15) BUN (7-18) mg/dL Creatinine (0.55-1.02) mg/dL Est Cr Clr Drug Dosing mL/min Estimated GFR (MDRD) (>60) mL/min BUN/Creatinine Ratio (14-18) Glucose (70-99) mg/dL POC Glucose 270 H (70-99) mg/dL Calcium (8.5-10.1) mg/dL Magnesium (1.8-2.4) mg/dL Total Bilirubin (0.2-1.0) mg/dL AST (15-37) U/L ALT (14-59) U/L Alkaline Phosphatase (46-116) U/L C-Reactive Protein (<1.0) mg/dL Total Protein (6.4-8.2) g/dl Albumin (3.4-5.0) g/dl Globulin gm/dL Albumin/Globulin Ratio (1-2) Med Orders - Current: Current Medications Discontinued Medications Acetaminophen (Acetaminophen 325 Mg Tab) 650 mg PO Q4H PRN PRN Reason: Pain (Mild 1-3)/fever Albuterol (Albuterol 0.083% 2.5 Mg/3 Ml Neb Soln) 2.5 mg NEB ONETIME ONE Stop: 12/29/20 18:44 Last Admin: 12/29/20 19:36 Dose: 2.5 mg Documented by: Albuterol (Albuterol 0.083% 2.5 Mg/3 Ml Neb Soln) 2.5 mg NEB Q2H PRN PRN Reason: Shortness Of Breath/wheezing Albuterol (Albuterol 6.7 Gm Inhaler) 0 gm INH BID PRN PRN Reason: Shortness of Breath Albuterol/Ipratropium (Albuterol/Ipratropium 3.0-0.5 Mg/3 Ml Neb Soln) 3 ml NEB Q4H PRN PRN Reason: Shortness Of Breath/wheezing Albuterol/Ipratropium (Albuterol/Ipratropium 3.0-0.5 Mg/3 Ml Neb Soln) ml INH BID PRN PRN Reason: sob Allopurinol (Allopurinol 300 Mg Tab) 300 mg PO BEDTIME [facility] Last Admin: 01/01/21 20:36 Dose: 300 mg Documented by: Ascorbic Acid (Ascorbic Acid 500 Mg Tab) 250 mg PO DAILY [facility] Last Admin: 01/02/21 08:27 Dose: 250 mg Documented by: Calcium Carbonate/Glycine (Calcium Carbonate 500 Mg Tab.Chew) 500 mg PO Q3H PRN PRN Reason: Indigestion Cholecalciferol (Cholecalciferol (Vitamin D3) 25 Mcg Tab) 25 mcg PO DAILY [facility] Last Admin: 01/02/21 08:27 Dose: 25 mcg Documented by: Dexamethasone (Dexamethasone 4 Mg Tab) 6 mg PO DAILY [facility] Stop: 01/07/21 09:01 Last Admin: 01/02/21 08:26 Dose: 6 mg Documented by: Ferrous Sulfate (Ferrous Sulfate 324 Mg Tab.Ec) 324 mg PO MOWEFR [facility] Last Admin: 01/02/21 08:34 Dose: 324 mg Documented by: Guaifenesin/Dextromethorphan (Guaifenesin/Dextromethorphan 100-10 Mg/5 Ml Soln 5 Ml Cup) 10 ml PO Q4H PRN PRN Reason: Cough Last Admin: 12/31/20 20:06 Dose: 10 ml Documented by: Insulin Human Lispro (Insulin Lispro 100 Unit/Ml 3 Ml Kwikpen) 0 unit SUBCUT QIDACANDBED [facility]; Protocol Last Admin: 01/02/21 08:26 Dose: Not Given Documented by: Lisinopril (Lisinopril 20 Mg Tab) 20 mg PO DAILY [facility] Last Admin: 01/02/21 08:27 Dose: 20 mg Documented by: Magnesium Hydroxide (Magnesium Hydroxide 400 Mg/5 Ml Susp 30 Ml Cup) 30 ml PO ONETIME ONE Stop: 12/31/20 16:10 Last Admin: 12/31/20 17:28 Dose: 30 ml Documented by: Nitroglycerin (Nitroglycerin 0.4 Mg Tab.Sl) 0.4 mg SL Q5M PRN PRN Reason: Chest Pain Olopatadine Hcl 0.1% (Eye Drops Ptom) 1 drop EYEBOTH BID [facility] Last Admin: 12/30/20 09:48 Dose: Not Given Documented by: Olopatadine Hcl 0.1% (Eye Drops Ptom) 1 drop EYEBOTH BID [facility] Last Admin: 01/02/21 08:28 Dose: 1 drop Documented by: Ondansetron HCl (Ondansetron 4 Mg/2 Ml Sdv) 4 mg IVPUSH ONETIME ONE Stop: 12/29/20 18:48 Last Admin: 12/29/20 20:00 Dose: 4 mg Documented by: Ondansetron HCl (Ondansetron 4 Mg/2 Ml Sdv) 4 mg IV Q6H PRN PRN Reason: Nausea/Vomiting Ondansetron HCl (Ondansetron 4 Mg Tab.Dis) 4 mg PO Q4H PRN PRN Reason: Nausea Pantoprazole Sodium (Pantoprazole 40 Mg Tab.Cr) 40 mg PO DAILY [facility] Last Admin: 01/02/21 08:27 Dose: 40 mg Documented by: Polyethylene Glycol (Polyethylene Glycol 3350 Powder 17 Gm Packet) 17 gm PO DAILY PRN PRN Reason: Constipation Last Admin: 12/31/20 05:42 Dose: 17 gm Documented by: Rosuvastatin Calcium (Rosuvastatin 10 Mg Tab) 40 mg PO BEDTIME [facility] Last Admin: 01/01/21 20:36 Dose: 40 mg Documented by: Sertraline HCl (Sertraline 50 Mg Tab) 50 mg PO BEDTIME [facility] Last Admin: 01/01/21 20:36 Dose: 50 mg Documented by: Sodium Chloride (Sodium Chloride 0.9% 10 Ml Syringe) 10 ml FLUSH ASDIRECTED PRN PRN Reason: Keep Vein Open Last Admin: 12/29/20 19:35 Dose: 10 ml Documented by: Sodium Polystyrene Sulfonate (Sodium Polystyrene Sulfonate 15 Gm/60 Ml Susp 60 Ml Bot) 15 gm PO ONETIME ONE Stop: 01/01/21 17:05 Last Admin: 01/01/21 17:33 Dose: 15 gm Documented by: Warfarin Sodium (Pharmacy To Dose - Warfarin) 1 dose .XX ASDIRECTED PRN PRN Reason: RX TO DOSE WARFARIN Warfarin Sodium (Warfarin Sliding Scale) 0 each PO QPM [facility] Stop: 12/30/20 18:01 Last Admin: 12/30/20 18:00 Dose: Not Given Documented by: Warfarin Sodium (Warfarin Sliding Scale) 0 each PO QPM [facility] Stop: 12/31/20 18:01 Last Admin: 12/31/20 17:30 Dose: Not Given Documented by: Warfarin Sodium (Warfarin 2.5 Mg Tab) 2.5 mg PO QPM [facility] Stop: 01/01/21 18:01 Last Admin: 01/01/21 17:34 Dose: 2.5 mg Documented by: Warfarin Sodium (Warfarin 5 Mg Tab) 5 mg PO QPM [facility] Stop: 01/02/21 18:01 Zinc Sulfate (Zinc Sulfate 220 Mg Cap) 220 mg PO DAILY [facility] Last Admin: 01/02/21 08:27 Dose: 220 mg Documented by: - Free Text/Narrative Note: I have seen and examined the patient independently of KIMMIE Adkins. I have discussed the case with him. I have also reviewed and agree with the plan of care as outlined by him. Please see orders.
[2021-01-02] MEDS: Insulin Lispro 100 Unit/ML 3 ML KwikPen SUBCUT SCH (08:26)
[2021-01-02] MEDS: Dexamethasone 4 MG Tab PO SCH (08:26)
[2021-01-02] MEDS: Zinc Sulfate 220 MG Cap PO SCH (08:27)
[2021-01-02] MEDS: Lisinopril 20 MG Tab PO SCH (08:27)
[2021-01-02] MEDS: Cholecalciferol (Vitamin D3) 25 MCG Tab PO SCH (08:27)
[2021-01-02] MEDS: Ascorbic Acid 500 MG Tab PO SCH (08:27)
[2021-01-02] MEDS: Pantoprazole 40 MG Tab.CR PO SCH (08:27)
[2021-01-02 08:28] VITALS: BP 152/70
[2021-01-02] MEDS: EYE EYEBOTH SCH (08:28)
[2021-01-02] MEDS: OLOPATADINE HCL 0.1% EYEBOTH SCH (08:28)
[2021-01-02] MEDS: Ferrous Sulfate 324 MG Tab.EC PO SCH (08:34)
[2021-01-02 08:44] VITALS: PULSE 47
[2021-01-02] MEDS ORDERED: Warfarin 5 MG Tab PO SCH (18:00)
== END 2021-01-02 11:35 | disposition other institution (70) | DRG 177 ==
LOC: JD.ED 18:17 → JD.MS 18:48
PROVIDERS: ADMIT Family Medicine; ATTEND Family Medicine
PROC: 8E0ZXY6 Isolation (ICD-10-PCS; principal; 2020-12-29)
DX: U07.1 COVID-19 (principal); J12.82 Pneumonia due to coronavirus disease 2019; I13.0 Hypertensive heart and chronic kidney disease with heart failure and stage 1 through stage 4 chronic kidney disease, or unspecified chronic kidney disease; E87.1 Hypo-osmolality and hyponatremia; J44.0 Chronic obstructive pulmonary disease with (acute) lower respiratory infection; I25.10 Atherosclerotic heart disease of native coronary artery without angina pectoris; I50.9 Heart failure, unspecified; E78.5 Hyperlipidemia, unspecified; Z66 Do not resuscitate; R53.1 Weakness; H54.7 Unspecified visual loss; I25.119 Atherosclerotic heart disease of native coronary artery with unspecified angina pectoris; I13.10 Hypertensive heart and chronic kidney disease without heart failure, with stage 1 through stage 4 chronic kidney disease, or unspecified chronic kidney disease; N18.30 Chronic kidney disease, stage 3 unspecified; Z86.718 Personal history of other venous thrombosis and embolism; E11.42 Type 2 diabetes mellitus with diabetic polyneuropathy; F41.9 Anxiety disorder, unspecified; F32.A Depression, unspecified; J44.9 Chronic obstructive pulmonary disease, unspecified; K21.9 Gastro-esophageal reflux disease without esophagitis; M1A.9XX0 Chronic gout, unspecified, without tophus (tophi); N18.32 Chronic kidney disease, stage 3b; E87.5 Hyperkalemia; J20.9 Acute bronchitis, unspecified; K59.09 Other constipation; K44.9 Diaphragmatic hernia without obstruction or gangrene; Z95.5 Presence of coronary angioplasty implant and graft; Z87.01 Personal history of pneumonia (recurrent); Z86.73 Personal history of transient ischemic attack (TIA), and cerebral infarction without residual deficits; K58.9 Irritable bowel syndrome, unspecified; M19.90 Unspecified osteoarthritis, unspecified site; Z86.79 Personal history of other diseases of the circulatory system; G89.29 Other chronic pain; M54.9 Dorsalgia, unspecified; M10.9 Gout, unspecified; M81.0 Age-related osteoporosis without current pathological fracture; E11.22 Type 2 diabetes mellitus with diabetic chronic kidney disease; Z91.040 Latex allergy status; Z88.0 Allergy status to penicillin; Z91.018 Allergy to other foods; Z79.01 Long term (current) use of anticoagulants; Z79.899 Other long term (current) drug therapy
CPT/HCPCS: 36415; 71045; 80053; 81001; 83735; 85025; 85379; 86140; 87641; 93005; 94640; J2405; J7050; M0245; Q0245 ×2; 82306; 82947; 83036; 83930; 83935; 84100; 84145; 84300; 85610; 94762; 97116-GP; 97162-GP; 97530-GP; A9270-GY; J1815; J8540

== ENCOUNTER 2021-01-08 11:18 | Emergency (ER) | payer MEDICARE, MEDICAID ==
--- NOTE | 2021-01-08 13:50 | EDM.PDOC ---
ED HPI GENERAL MEDICAL PROBLEM - General Chief Complaint: Gastrointestinal Problem Stated Complaint: CONSTIPATION Time Seen by Provider: 01/08/21 11:32 Source of Information: Reports: Patient, Family, RN Notes Reviewed History Limitations: Reports: No Limitations - History of Present Illness INITIAL COMMENTS - FREE TEXT/NARRATIVE: Patient is a 80-year-old female presenting to the emergency department with complaints of constipation. She reports she has not had a normal bowel movement for at least 2 weeks. She was recently discharged from the hospital after stay for COVID-19. Reports the whole time she is in the hospital, she did not have a bowel movement. She has been drinking prune juice, using MiraLAX, and Benefiber. Reports a few days ago when she drank some prune juice, she did have some watery stool but has nothing since that time. Complains of crampy abdominal pain. She is had no vomiting or fevers. Patient does have a history of IBS with constipation and reports that she is had problems with constipation her whole life. Reports that she is passing flatus. Middle Abdomen Pain Score (Numeric/FACES): 5 - Related Data Allergies Allergy/AdvReac Type Severity Reaction Status Date / Time Penicillins Allergy Severe Swelling Verified 01/08/21 11:37 latex Allergy Intermediate Rash Verified 01/08/21 11:37 pineapple Allergy Intermediate Rash Verified 01/08/21 11:37 Home Meds: Home Meds Furosemide 40 mg PO DAILY 10/16/18 [History] Nitroglycerin 0.4 mg PO Q5M PRN MDD 3 doses 10/16/18 [History] Pantoprazole [ProTONIX] 40 mg PO DAILY 10/16/18 [History] Potassium Chloride 20 meq PO DAILY 10/16/18 [History] Sertraline [Zoloft] 50 mg PO BEDTIME 10/16/18 [History] allopurinoL [Zyloprim] 300 mg PO BEDTIME 10/16/18 [History] Albuterol [Ventolin HFA] 2 puff INH BID PRN 11/20/19 [History] Rosuvastatin Calcium [Crestor] 40 mg PO BEDTIME 11/20/19 [History] lisinopriL [Lisinopril] 20 mg PO DAILY 11/20/19 [History] Warfarin [Coumadin] 2.5 mg PO ASDIRECTED 02/22/20 [History] Warfarin [Coumadin] 5 mg PO MOFR 02/22/20 [History] Fluticasone Propionate [Flovent HFA 220 MCG] 1 puff PO BID 04/14/20 [History] Ascorbic Acid [Vitamin C] 250 mg PO DAILY 08/31/20 [History] Ferrous Sulfate 325 mg PO MOWEFR 08/31/20 [History] Olopatadine HCl [Pataday Once Daily Relief] 1 drop EYEBOTH BID 08/31/20 [History] polyethylene glycoL 3350 [MiraLAX] 17 gm PO DAILY PRN 08/31/20 [History] Acetaminophen 1,000 mg PO Q6HR PRN 12/30/20 [History] Calcium Carbonate [Tums] 200 mg PO Q3HR PRN 12/30/20 [History] Cholecalciferol (Vitamin D3) [Vitamin D3] 25 mcg PO DAILY 12/30/20 [History] Guar Gum [Benefiber] 2 tsp PO TID 12/30/20 [History] Hydrocodone/Acetaminophen [HYDROcodone-Acetaminophen 5-325 MG] 1 tab PO Q6HR PRN 12/30/20 [History] Ipratropium/Albuterol Sulfate [Iprat-Albut 0.5-3(2.5) mg/3 ml] 1 inh INH BID PRN 12/30/20 [History] Mometasone Furoate [Nasonex [place]] 1 spray CONRAD BID 12/30/20 [History] Ondansetron [Zofran ODT] 4 mg PO Q4HR PRN 12/30/20 [History] Sennosides/Docusate Sodium [Senna Plus 8.6-50 mg Softgel] 1 tab PO DAILY 12/30/20 [History] Zinc Sulfate [Zincate] 220 mg PO DAILY #20 cap 01/02/21 [Rx] Past Medical History HEENT History: Reports: Cataract, Impaired Vision, Other (See Below) Other HEENT History: wears eyeglasses Cardiovascular History: Reports: Angina, Arrhythmia, Blood Clots/VTE/DVT, CAD, Heart Failure, High Cholesterol, Hypertension, Stents Other Cardiovascular History: carotid artery disease, ventricular bigeminy, bradycardia, hypotension Respiratory History: Reports: Asthma, COPD, Pneumonia, Recurrent, Other (See Below) Other Respiratory History: no home O2 Gastrointestinal History: Reports: Chronic Constipation, GERD, GI Bleed, Hemorrhoids, Hiatal Hernia, Irritable Bowel Syndrome Genitourinary History: Reports: Chronic Renal Insuffiency Other Genitourinary History: renal disease, CKD III RESIDENTIAL PROGRAM COORDINATOR History: Reports: Other RESIDENTIAL PROGRAM COORDINATOR History: hysterectomy Musculoskeletal History: Reports: Arthritis, Back Pain, Chronic, Gout, Osteoarthritis, Osteoporosis Other Musculoskeletal History: Left sided sciatica, plantar fascia syndrome Neurological History: Reports: CVA, Neuropathy, Diabetic Other Neuro History: dizziness Psychiatric History: Reports: Anxiety, Depression Endocrine/Metabolic History: Reports: Diabetes, Type II, Obesity/BMI 30+ Hematologic History: Reports: Anemia, Anticoagulation Therapy, Blood Transfusion(s), Iron Deficiency Other Hematologic History: hypercalcemia, hyperkalemia Immunologic History: Reports: None Oncologic (Cancer) History: Reports: None Dermatologic History: Reports: Eczema Other Dermatologic History: eczema - Infectious Disease History Infectious Disease History: Reports: Influenza, Measles, Mumps, Novel Coronavirus, RSV - Past Surgical History Head Surgeries/Procedures: Reports: None HEENT Surgical History: Reports: Cataract Surgery Cardiovascular Surgical History: Reports: Coronary Artery Stent, Percutaneous Transluminal Angioplasty Other Cardiovascular Surgeries/Procedures: Doctors have been keeping an eye on her left and right carotid Respiratory Surgical History: Reports: None GI Surgical History: Reports: Colonoscopy, Hernia Repair/Other, Other (See Below) Other GI Surgeries/Procedures: hemorrhoid banding, hemorrhoidectomy Female Surgical History: Reports: Hysterectomy Other Female Surgeries/Procedures: Endocrine Surgical History: Reports: None Neurological Surgical History: Reports: None Musculoskeletal Surgical History: Reports: Carpal Tunnel Oncologic Surgical History: Reports: None Social & Family History - Family History Family Medical History: No Pertinent Family History HEENT: Reports: Hearing Impairment Cardiac: Reports: High Cholesterol, Hypertension Respiratory: Reports: Asthma : Reports: Renal Disease/Insufficiency Musculoskeletal: Reports: Arthritis, Back pain, Chronic, Gout Neurological: Reports: Seizure Psychiatric: Reports: Schizophrenia Endocrine/Metabolic: Reports: Diabetes, Type I, Diabetes, type II, Obesity/MBI 30+ Dermatologic: Reports: Eczema Oncologic: Reports: Bone, Lung - Caffeine Use Caffeine Use: Reports: Coffee, Soda, Tea Other Caffeine Use: cup of coffee every morning Caffeine Use Comment: Drinks about 1 cup of coffee and 1-2 cups of iced tea a day. - Living Situation & Occupation Living situation: Reports: , Alone Occupation: Retired ED ROS GENERAL - Review of Systems Review Of Systems: Comprehensive ROS is negative, except as noted in HPI. ED EXAM, GI/ABD - Physical Exam Exam: See Below Exam Limited By: No Limitations General Appearance: Alert, WD/WN, No Apparent Distress Respiratory/Chest: No Respiratory Distress, Lungs Clear, Normal Breath Sounds, No Accessory Muscle Use, Chest Non-Tender Cardiovascular: Normal Peripheral Pulses, Regular Rate, Rhythm, No Edema, No Gallop, No JVD, No Murmur, No Rub GI/Abdominal Exam: Normal Bowel Sounds, Soft, No Organomegaly, No Distention, No Abnormal Bruit, No Mass, Pelvis Stable, Tender (Mild generalized tenderness throughout). No: Guarding, Rigid, Rebound Neurological: Alert, Oriented, CN II-XII Intact, Normal Cognition, Normal Gait, Normal Reflexes, No Motor/Sensory Deficits Psychiatric: Normal Affect, Normal Mood Skin Exam: Warm, Dry, Intact, Normal Color, No Rash Course - Vital Signs Last Recorded V/S: Last Vital Signs Temp 97.9 F 01/08/21 11:30 Pulse 67 01/08/21 18:44 Resp 20 01/08/21 18:44 BP 110/79 01/08/21 18:44 Pulse Ox 97 01/08/21 18:44 - Orders/Labs/Meds Labs: Laboratory Tests 01/08/21 01/08/21 Range/Units 16:15 16:15 WBC 12.26 H (3.98-10.04) K/mm3 RBC 4.27 (3.98-5.22) M/mm3 Hgb 12.9 (11.2-15.7) gm/dl Hct 40.3 (34.1-44.9) % MCV 94.4 (79.4-94.8) fl MCH 30.2 (25.6-32.2) pg MCHC 32.0 L (32.2-35.5) g/dl RDW Std Deviation 48.9 H (36.4-46.3) fL Plt Count 331 D (182-369) K/mm3 MPV 10.3 (9.4-12.3) fl Neut % (Auto) 70.5 (34.0-71.1) % Lymph % (Auto) 18.0 L (19.3-51.7) % [place] % (Auto) 10.4 (4.7-12.5) % Eos % (Auto) 0.4 L (0.7-5.8) Baso % (Auto) 0.2 (0.1-1.2) % Neut # (Auto) 8.65 H (1.56-6.13) K/mm3 Lymph # (Auto) 2.21 (1.18-3.74) K/mm3 Forest # (Auto) 1.27 H (0.24-0.36) K/mm3 Eos # (Auto) 0.05 (0.04-0.36) K/mm3 Baso # (Auto) 0.02 (0.01-0.08) K/mm3 Sodium 139 (136-145) mEq/L Potassium 4.6 (3.5-5.1) mEq/L Chloride 103 (98-107) mEq/L Carbon Dioxide 30 (21-32) mEq/L Anion Gap 10.6 (5-15) BUN 29 H D (7-18) mg/dL Creatinine 1.6 H (0.55-1.02) mg/dL Est Cr Clr Drug Dosing 25.65 mL/min Estimated GFR (MDRD) 31 (>60) mL/min BUN/Creatinine Ratio 18.1 H (14-18) Glucose 102 H (70-99) mg/dL Calcium 10.1 (8.5-10.1) mg/dL Total Bilirubin 0.4 (0.2-1.0) mg/dL AST 16 (15-37) U/L ALT 26 (14-59) U/L Alkaline Phosphatase 50 (46-116) U/L C-Reactive Protein 4.8 H* (<1.0) mg/dL Total Protein 7.3 (6.4-8.2) g/dl Albumin 2.3 L (3.4-5.0) g/dl Globulin 5.0 gm/dL Albumin/Globulin Ratio 0.5 L (1-2) Lipase 98 (73-393) U/L - Re-Assessments/Exams Free Text/Narrative Re-Assessment/Exam: Patient is a 80-year-old female presenting to the emergency department with complaints of constipation. She reports generalized abdominal discomfort and cramping. Has not had a normal bowel movement for at least 2 weeks. Had a small amount of watery stool a few days ago after drinking prune juice. On exam, bowel sounds are active in all 4 quadrants. She has no peritoneal signs. She does have mild generalized tenderness throughout. Have ordered abdomen flat and upright x-ray. 01/08/21 1210 Abdomen flat and upright x-ray shows no evidence of air-fluid levels. She does have collection of stool in the sigmoid and descending colon. We will give her soapsuds enema. 01/08/21 1520 Nursing staff reports that patient had only had a small amount of BM after the soapsuds enema. They were small, hard pieces. I did complete rectal exam. There was some firm stool palpable high in the rectal vault. Nothing that would allow for disimpaction. Have ordered mineral oil enema. 01/08/21 1620 Patient had no results from the mineral oil enema. Continues to complain of abdominal discomfort. I order CT scan of the abdomen pelvis with oral contrast only as she has decreased kidney function and the oral contrast. have also ordered blood work, urinalysis. 01/08/21 18:17 Lab results reviewed. Notified by nursing staff that patient has had a number of large bowel movements. I visited with patient. States that she has gone "quite a bit ". Her abdominal pain has resolved and she states that she is feeling good. We will cancel the CT scan of the abdomen pelvis. Recommend daily laxatives. Discussed that if her abdominal pain should return or she develops any other new symptoms of concern, she should return to the ER for reevaluation. Patient and her daughter are both in agreement with this plan. Departure - Departure Time of Disposition: 18:14 Disposition: Home, Self-Care 01 Condition: Good Clinical Impression: Constipation - Discharge Information *PRESCRIPTION DRUG MONITORING PROGRAM REVIEWED*: No *COPY OF PRESCRIPTION DRUG MONITORING REPORT IN PATIENT CHRISTOPHE: No Instructions: Constipation, Adult Referrals: Jabari Robins MD [Primary Care Provider] - Forms: ED Department Discharge Additional Instructions: Increase your oral fluid intake. Take 1 capful of MiraLAX daily for the next 3 days. If you are having regular bowel movements, you may decrease to half capful daily. If it becomes more difficult for you to go, resume 1 capful daily as an ongoing basis. Return to ER should you symptoms return or he develop any other new symptoms of concern. Sepsis Event Note (ED) - Focused Exam Vital Signs: Vital Signs Temp Pulse Resp BP Pulse Ox 01/08/21 18:44 67 20 110/79 97 01/08/21 11:30 97.9 F 68 20 148/80 H 96
--- NOTE | 2021-01-08 14:30 | CR ---
Abdomen: Supine and upright views of the abdomen were obtained. Comparison: Prior abdominal x-ray of 04/18/17. Scoliosis is noted within the spine as well as scattered degenerative change. Bowel gas pattern appears within normal limits. Vascular calcification is seen. Calcifications are seen overlying both kidneys which are most likely vascular in etiology. No free air is seen. Impression: 1. Findings as described above. 2. Nothing acute is appreciated on two-view abdominal x-ray. Diagnostic code #2
[2021-01-08 20:01] VITALS: BP 110/79; PULSE 67
== END 2021-01-08 18:44 | disposition home or self-care (01) ==
LOC: JD.ED 11:18
DX: K59.00 Constipation, unspecified (principal); E11.22 Type 2 diabetes mellitus with diabetic chronic kidney disease; I13.0 Hypertensive heart and chronic kidney disease with heart failure and stage 1 through stage 4 chronic kidney disease, or unspecified chronic kidney disease; N18.30 Chronic kidney disease, stage 3 unspecified; I50.9 Heart failure, unspecified; M10.9 Gout, unspecified; I25.10 Atherosclerotic heart disease of native coronary artery without angina pectoris; E78.00 Pure hypercholesterolemia, unspecified; J44.9 Chronic obstructive pulmonary disease, unspecified; K21.9 Gastro-esophageal reflux disease without esophagitis; E66.9 Obesity, unspecified; Z68.28 Body mass index [BMI] 28.0-28.9, adult; Z95.5 Presence of coronary angioplasty implant and graft; Z88.0 Allergy status to penicillin; Z91.040 Latex allergy status; Z91.018 Allergy to other foods
CPT/HCPCS: 36415; 74019; 74019-26; 80053; 83690; 85025; 86140; 99283-25

== ENCOUNTER 2021-04-23 16:18 | Inpatient (IN) | payer MEDICARE, MEDICAID ==
[2021-04-23] MEDS ORDERED: Sodium Chloride 0.9% 10 ML Syringe FLUSH PRN (16:50)
[2021-04-23] MEDS ORDERED: Sodium Chloride 0.9% 1,000 ML IV SCH (17:00)
[2021-04-23] MEDS ORDERED: cefTRIAXone 2 GM in Sodium Chloride 0.9% 100 ML IV ONE (18:40)
[2021-04-23] MEDS ORDERED: Albuterol 0.083% 2.5 MG/3 ML Neb Soln NEB PRN (21:16)
[2021-04-23] MEDS ORDERED: Magnesium Hydroxide 400 MG/5 ML Susp 30 ML Cup PO PRN (21:16)
[2021-04-23] MEDS ORDERED: Zolpidem 5 MG Tab PO PRN (21:16)
[2021-04-23] MEDS ORDERED: Ondansetron 4 MG Tab.DIS PO PRN (21:16)
[2021-04-23] MEDS ORDERED: Pantoprazole 40 MG Vial ONE (21:16)
[2021-04-23] MEDS ORDERED: Non-Formulary Medication 1 Each (Acetaminophen 500 MG Tablet) PO PRN (21:24)
[2021-04-23] MEDS ORDERED: Pantoprazole 40 MG in Sodium Chloride 0.9% 100 ML IV ONE ×2 (22:00→23:22)
[2021-04-23] MEDS: Sodium Chloride 0.9% 1,000 ML IV SCH (23:18)
[2021-04-23] MEDS ORDERED: Pantoprazole 40 MG Vial IVPUSH ONE (23:22)
[2021-04-24] MEDS: cefTRIAXone 1 GM in Sodium Chloride 0.9% 100 ML IV SCH ×2 (00:10→22:07)
[2021-04-24] MEDS: Acetaminophen 325 MG Tab PO PRN ×2 (01:17→05:30)
[2021-04-24] MEDS ORDERED: Enoxaparin 30 MG/0.3 ML Syringe SUBCUT SCH (09:00)
[2021-04-24] MEDS: Sodium Chloride 0.9% 1,000 ML IV SCH (09:53)
[2021-04-24 13:18] LABS: HEMOGLOBIN A1C 6.1 %
[2021-04-24] MEDS ORDERED: guaiFENesin/Dextromethorphan 100-10 MG/5 ML Soln 5 ML Cup PO PRN (15:36)
[2021-04-24] MEDS ORDERED: Sodium Chloride 0.9% 1,000 ML IV SCH (18:45)
[2021-04-24] MEDS ORDERED: Ondansetron 4 MG Tab.DIS PO PRN (19:03)
[2021-04-24] MEDS ORDERED: Polyethylene Glycol 3350 Powder 17 GM Packet PO PRN (19:03)
[2021-04-24] MEDS ORDERED: Acetaminophen/HYDROcodone 325-5 MG Tab PO PRN (19:33)
[2021-04-24] MEDS ORDERED: Albuterol 6.7 GM Inhaler INH PRN (19:36)
[2021-04-24] MEDS: Docusate Sodium 100 MG Cap PO SCH (20:06)
[2021-04-24] MEDS: Mometasone Furoate HFA 200 mcg/Puff 13 GM Inhaler SCH (20:46)
[2021-04-24] MEDS ORDERED: Allopurinol 300 MG Tab PO SCH (21:00)
[2021-04-24] MEDS ORDERED: Rosuvastatin 10 MG Tab PO SCH (21:00)
[2021-04-24] MEDS ORDERED: Famotidine 20 MG Tab PO SCH (21:00)
[2021-04-24] MEDS ORDERED: GUAR GUM PO SCH (21:00)
[2021-04-24] MEDS ORDERED: Sertraline 50 MG Tab PO SCH (21:00)
[2021-04-25] MEDS: Acetaminophen 325 MG Tab PO PRN (03:37)
[2021-04-25] MEDS ORDERED: Pantoprazole 40 MG Tab.CR PO SCH (06:00)
[2021-04-25 08:09] VITALS: BP 170/93; PULSE 57
[2021-04-25] MEDS: Docusate Sodium 100 MG Cap PO SCH (08:24)
[2021-04-25] MEDS: Mometasone Furoate HFA 200 mcg/Puff 13 GM Inhaler SCH (08:42)
[2021-04-25] MEDS ORDERED: Enoxaparin 30 MG/0.3 ML Syringe SUBCUT SCH (09:00)
[2021-04-25] MEDS ORDERED: Furosemide 40 MG Tab PO SCH (09:00)
[2021-04-25] MEDS ORDERED: Potassium Chloride 20 MEQ Tab.ER PO SCH (09:00)
[2021-04-27] MEDS ORDERED: Ferrous Sulfate 324 MG Tab.EC PO SCH (09:00)
== END 2021-04-25 12:50 | DRG 690 ==
LOC: JD.ED 16:18 → JD.MS 19:52 → JD.ED 20:15
PROVIDERS: ADMIT Pediatrics; ATTEND Pediatrics
DX: N30.00 Acute cystitis without hematuria (principal); K92.2 Gastrointestinal hemorrhage, unspecified; I13.0 Hypertensive heart and chronic kidney disease with heart failure and stage 1 through stage 4 chronic kidney disease, or unspecified chronic kidney disease; N28.9 Disorder of kidney and ureter, unspecified; R00.8 Other abnormalities of heart beat; R91.1 Solitary pulmonary nodule; E78.5 Hyperlipidemia, unspecified; H54.7 Unspecified visual loss; Z87.891 Personal history of nicotine dependence; I25.10 Atherosclerotic heart disease of native coronary artery without angina pectoris; E78.00 Pure hypercholesterolemia, unspecified; I50.9 Heart failure, unspecified; F41.9 Anxiety disorder, unspecified; Z95.5 Presence of coronary angioplasty implant and graft; F32.A Depression, unspecified; J44.9 Chronic obstructive pulmonary disease, unspecified; I49.9 Cardiac arrhythmia, unspecified; R33.9 Retention of urine, unspecified; R33.8 Other retention of urine; D50.0 Iron deficiency anemia secondary to blood loss (chronic); D63.1 Anemia in chronic kidney disease; E66.9 Obesity, unspecified; Z68.32 Body mass index [BMI] 32.0-32.9, adult; Z79.4 Long term (current) use of insulin; Z86.39 Personal history of other endocrine, nutritional and metabolic disease; Z86.16 Personal history of COVID-19; Z86.718 Personal history of other venous thrombosis and embolism; K21.9 Gastro-esophageal reflux disease without esophagitis; Z86.711 Personal history of pulmonary embolism; Z90.710 Acquired absence of both cervix and uterus; Z87.19 Personal history of other diseases of the digestive system; Z86.73 Personal history of transient ischemic attack (TIA), and cerebral infarction without residual deficits; K44.9 Diaphragmatic hernia without obstruction or gangrene; K59.09 Other constipation; Z97.3 Presence of spectacles and contact lenses; Z98.42 Cataract extraction status, left eye; Z98.41 Cataract extraction status, right eye; Z90.89 Acquired absence of other organs; Z98.890 Other specified postprocedural states; N18.30 Chronic kidney disease, stage 3 unspecified; E11.22 Type 2 diabetes mellitus with diabetic chronic kidney disease; M19.90 Unspecified osteoarthritis, unspecified site; E11.40 Type 2 diabetes mellitus with diabetic neuropathy, unspecified; Z91.040 Latex allergy status; Z88.0 Allergy status to penicillin; Z91.018 Allergy to other foods; Z79.01 Long term (current) use of anticoagulants; Z79.899 Other long term (current) drug therapy; Z20.822 Contact with and (suspected) exposure to COVID-19
CPT/HCPCS: 36415; 71045; 71250; 80053; 81001; 83605; 83735; 84484; 85025; 85610; 85730; 86140; 87040; 87086; 87088; 87186; 93005; 99285; J3490; J7030; U0002; 83036; 87641; 93010; 94640; 94760; 96365; 97161-GP; 99239; A9270-GY; C9113; J0696; J1650

== ENCOUNTER 2021-12-30 19:29 | Inpatient (IN) | payer MEDICARE, MEDICAID ==
[2021-12-30] MEDS ORDERED: Sodium Chloride 0.9% 10 ML Syringe FLUSH PRN (19:47)
[2021-12-30] MEDS ORDERED: Sodium Chloride 0.9% 1,000 ML IV SCH (20:00)
[2021-12-30 21:10] LABS: ESTIMATED GFR 22 mL/min (>60)
[2021-12-30] MEDS ORDERED: cefTRIAXone 1 GM in Sodium Chloride 0.9% 100 ML IV ONE (22:51)
[2021-12-31] MEDS ORDERED: Lactated Ringers 1,000 ML IV SCH (02:30)
[2021-12-31] MEDS ORDERED: Lactated Ringers 1,000 ML ONE (02:34)
[2021-12-31 02:51] LABS: CORONAVIRUS COVID-19 NAA NEGATIVE (NEGATIVE)
[2021-12-31] MEDS ORDERED: Albuterol 6.7 GM Inhaler INH PRN (06:11)
[2021-12-31] MEDS ORDERED: Albuterol/Ipratropium 3.0-0.5 MG/3 ML Neb Soln INH PRN (06:11)
[2021-12-31] MEDS ORDERED: Ondansetron 4 MG/2 ML SDV IVPUSH PRN (06:13)
[2021-12-31] MEDS: Furosemide 40 MG Tab PO SCH (09:36)
[2021-12-31] MEDS: Potassium Chloride 20 MEQ Tab.ER PO SCH (09:36)
[2021-12-31] MEDS ORDERED: [UNRECOGNIZED DRUG - REMARK] PO SCH (18:00)
[2021-12-31] MEDS ORDERED: cefTRIAXone 500 MG Vial IVPUSH SCH (20:00)
[2021-12-31] MEDS: Allopurinol 300 MG Tab PO SCH (20:55)
[2021-12-31] MEDS: cefTRIAXone 2 GM in Sodium Chloride 0.9% 100 ML IV SCH (20:55)
[2021-12-31] MEDS: Sertraline 50 MG Tab PO SCH (20:55)
[2022-01-01 07:26] LABS: ESTIMATED GFR 19 mL/min (>60)
[2022-01-01] MEDS: Pantoprazole 40 MG Tab.CR PO SCH (07:51)
[2022-01-01] MEDS: Furosemide 40 MG Tab PO SCH (10:13)
[2022-01-01] MEDS: Potassium Chloride 20 MEQ Tab.ER PO SCH (10:14)
[2022-01-01] MEDS: Sertraline 50 MG Tab PO SCH (20:00)
[2022-01-01] MEDS: Allopurinol 300 MG Tab PO SCH (20:00)
[2022-01-01] MEDS: cefTRIAXone 2 GM in Sodium Chloride 0.9% 100 ML IV SCH (20:06)
[2022-01-02] MEDS: Pantoprazole 40 MG Tab.CR PO SCH (05:53)
[2022-01-02] MEDS: Furosemide 40 MG Tab PO SCH (08:35)
[2022-01-02] MEDS: Potassium Chloride 20 MEQ Tab.ER PO SCH (08:35)
[2022-01-02] MEDS ORDERED: Docusate Sodium 100 MG Cap PO PRN (17:15)
[2022-01-02] MEDS: cefTRIAXone 2 GM in Sodium Chloride 0.9% 100 ML IV SCH (20:06)
[2022-01-02] MEDS: Allopurinol 300 MG Tab PO SCH (20:07)
[2022-01-02] MEDS: Sertraline 50 MG Tab PO SCH (20:07)
[2022-01-03] MEDS: Pantoprazole 40 MG Tab.CR PO SCH (06:23)
[2022-01-03] MEDS: Potassium Chloride 20 MEQ Tab.ER PO SCH (08:40)
[2022-01-03] MEDS: Furosemide 40 MG Tab PO SCH (08:40)
[2022-01-03] MEDS: Polyethylene Glycol 3350 Powder 17 GM Packet PO SCH (09:07)
[2022-01-03] MEDS ORDERED: Warfarin 4 MG Tab PO SCH (18:00)
[2022-01-03] MEDS: Sertraline 50 MG Tab PO SCH (20:21)
[2022-01-03] MEDS: cefTRIAXone 2 GM in Sodium Chloride 0.9% 100 ML IV SCH (20:21)
[2022-01-03] MEDS: Allopurinol 300 MG Tab PO SCH (20:21)
[2022-01-04 04:44] VITALS: BP 128/57; PULSE 60
[2022-01-04] MEDS: Pantoprazole 40 MG Tab.CR PO SCH (05:22)
[2022-01-04] MEDS: Potassium Chloride 20 MEQ Tab.ER PO SCH (09:36)
[2022-01-04] MEDS: Furosemide 40 MG Tab PO SCH (09:37)
[2022-01-04] MEDS: Polyethylene Glycol 3350 Powder 17 GM Packet PO SCH (09:37)
[2022-01-04] MEDS ORDERED: Warfarin 4 MG Tab PO SCH (18:00)
== END 2022-01-04 11:42 | disposition other institution (70) | DRG 690 ==
LOC: JD.ED 19:29 → JD.MS 12-31 02:15
PROVIDERS: ADMIT Internal Medicine; ATTEND Pediatrics
DX: N30.00 Acute cystitis without hematuria (principal); R53.1 Weakness; R55 Syncope and collapse; I25.119 Atherosclerotic heart disease of native coronary artery with unspecified angina pectoris; I50.32 Chronic diastolic (congestive) heart failure; N18.30 Chronic kidney disease, stage 3 unspecified; I50.9 Heart failure, unspecified; I13.0 Hypertensive heart and chronic kidney disease with heart failure and stage 1 through stage 4 chronic kidney disease, or unspecified chronic kidney disease; J44.9 Chronic obstructive pulmonary disease, unspecified; I25.10 Atherosclerotic heart disease of native coronary artery without angina pectoris; K21.9 Gastro-esophageal reflux disease without esophagitis; N31.9 Neuromuscular dysfunction of bladder, unspecified; N18.32 Chronic kidney disease, stage 3b; E11.22 Type 2 diabetes mellitus with diabetic chronic kidney disease; E11.40 Type 2 diabetes mellitus with diabetic neuropathy, unspecified; Z20.822 Contact with and (suspected) exposure to COVID-19; H54.7 Unspecified visual loss; Z86.16 Personal history of COVID-19; E78.00 Pure hypercholesterolemia, unspecified; I49.9 Cardiac arrhythmia, unspecified; R00.8 Other abnormalities of heart beat; M19.90 Unspecified osteoarthritis, unspecified site; F41.9 Anxiety disorder, unspecified; F32.A Depression, unspecified; M10.9 Gout, unspecified; M81.0 Age-related osteoporosis without current pathological fracture; Z98.49 Cataract extraction status, unspecified eye; Z90.710 Acquired absence of both cervix and uterus; Z86.718 Personal history of other venous thrombosis and embolism; Z79.01 Long term (current) use of anticoagulants; Z79.899 Other long term (current) drug therapy; Z88.0 Allergy status to penicillin; Z91.040 Latex allergy status; Z91.018 Allergy to other foods; Z95.5 Presence of coronary angioplasty implant and graft; Z87.01 Personal history of pneumonia (recurrent); Z87.891 Personal history of nicotine dependence; E11.65 Type 2 diabetes mellitus with hyperglycemia; K44.9 Diaphragmatic hernia without obstruction or gangrene; B96.1 Klebsiella pneumoniae [K. pneumoniae] as the cause of diseases classified elsewhere
CPT/HCPCS: 0240U; 36415; 36600; 70450; 71045; 80048; 80053; 81001; 82803; 83880; 83970; 84484; 85025; 85027; 85610; 87086; 87088; 87186; 87641; 93005; 94760; 94761; 96361; 96365; 97116; 97161; 97166; 99285; A9270-GY; J0696; J2405; J3490; J7030; J7120

== ENCOUNTER 2022-04-21 11:51 | Inpatient (IN) | payer MEDICARE, MEDICAID ==
[2022-04-21] MEDS ORDERED: Sodium Chloride 0.9% 10 ML Syringe FLUSH PRN (12:16)
[2022-04-21] MEDS ORDERED: HYDROmorphone 0.5 MG/0.5 ML Syringe IVPUSH ONE (12:16)
[2022-04-21] MEDS ORDERED: Ondansetron 4 MG/2 ML SDV IVPUSH ONE (12:16)
[2022-04-21] MEDS ORDERED: Sodium Chloride 0.9% 1,000 ML IV STA (12:16)
[2022-04-21] MEDS ORDERED: Albuterol/Ipratropium 3.0-0.5 MG/3 ML Neb Soln NEB ONE (12:51)
[2022-04-21] MEDS ORDERED: Sodium Chloride 0.9% 500 ML IV STA ×3 (13:08→15:03)
[2022-04-21] MEDS ORDERED: metroNIDAZOLE/Normal Saline 500 MG in Premix Bag 1 BAG IV ONE (14:30)
[2022-04-21] MEDS ORDERED: Levofloxacin/Dextrose 5%-Water 750 MG in Premix Bag 1 BAG IV ONE (14:30)
[2022-04-21] MEDS ORDERED: Acetaminophen 325 MG Tab PO PRN (17:14)
[2022-04-21] MEDS ORDERED: Temazepam 7.5 MG Cap PO PRN (17:14)
[2022-04-21] MEDS ORDERED: Ondansetron 4 MG Tab.DIS PO PRN (17:14)
[2022-04-21] MEDS ORDERED: oxyCODONE 5 MG Tab PO PRN (17:14)
[2022-04-21] MEDS: Insulin Regular, Human 100 Units/ML 3 ML Vial SUBCUT SCH (19:04)
[2022-04-22] MEDS: metroNIDAZOLE/Normal Saline 500 MG in Premix Bag 1 BAG IV SCH ×3 (01:20→16:09)
[2022-04-22] MEDS: Albuterol/Ipratropium 3.0-0.5 MG/3 ML Neb Soln NEB PRN ×2 (07:54→20:19)
[2022-04-22] MEDS: Insulin Regular, Human 100 Units/ML 3 ML Vial SUBCUT SCH ×3 (09:39→18:56)
[2022-04-22] MEDS ORDERED: Non-Formulary Medication 1 Each (Albuterol Sulfate [Proair Respiclick] 90 MCG Aer.Pow.Ba) IH PRN (13:25)
[2022-04-22] MEDS ORDERED: Polyethylene Glycol 3350 Powder 17 GM Packet PO PRN (13:25)
[2022-04-22] MEDS ORDERED: WARFARIN 2 MG PO SCH (13:30)
[2022-04-22] MEDS ORDERED: Albuterol 6.7 GM Inhaler INH PRN (13:33)
[2022-04-22] MEDS: Heparin Sodium 5,000 Units/ML Vial SUBCUT SCH ×2 (14:43→22:59)
[2022-04-22] MEDS ORDERED: Warfarin Sliding Scale PO SCH (18:00)
[2022-04-22] MEDS: Allopurinol 300 MG Tab PO SCH (20:04)
[2022-04-22] MEDS: Famotidine 20 MG Tab PO SCH (20:05)
[2022-04-22] MEDS: Rosuvastatin 10 MG Tab PO SCH ×2 (20:05→20:06)
[2022-04-22] MEDS: Sertraline 50 MG Tab PO SCH (20:05)
[2022-04-22] MEDS: Mometasone Furoate HFA 200 mcg/Puff 13 GM Inhaler INH SCH (20:19)
[2022-04-23] MEDS: metroNIDAZOLE/Normal Saline 500 MG in Premix Bag 1 BAG IV SCH ×3 (01:50→17:09)
[2022-04-23] MEDS: Heparin Sodium 5,000 Units/ML Vial SUBCUT SCH (05:33)
[2022-04-23] MEDS: Pantoprazole 40 MG Tab.CR PO SCH (05:33)
[2022-04-23] MEDS: Albuterol/Ipratropium 3.0-0.5 MG/3 ML Neb Soln NEB PRN (08:14)
[2022-04-23] MEDS: Mometasone Furoate HFA 200 mcg/Puff 13 GM Inhaler INH SCH ×2 (08:15→20:15)
[2022-04-23] MEDS ORDERED: Magnesium Sulfate/Water 2 GM in Premix Bag 1 BAG IV ONE (09:00)
[2022-04-23] MEDS: Potassium Chloride 20 MEQ Tab.ER PO SCH (09:12)
[2022-04-23] MEDS: Lisinopril 20 MG Tab PO SCH (09:12)
[2022-04-23] MEDS: Cholecalciferol (Vitamin D3) 25 MCG Tab PO SCH (09:20)
[2022-04-23] MEDS: Furosemide 40 MG Tab PO SCH (09:20)
[2022-04-23] MEDS: Insulin Regular, Human 100 Units/ML 3 ML Vial SUBCUT SCH ×3 (09:28→19:01)
[2022-04-23] MEDS ORDERED: Levofloxacin/Dextrose 5%-Water 750 MG in Premix Bag 1 BAG IV SCH (16:00)
[2022-04-23] MEDS ORDERED: Levofloxacin/Dextrose 5%-Water 500 MG in Premix Bag 1 BAG IV SCH (16:00)
[2022-04-23] MEDS ORDERED: Warfarin Sliding Scale PO SCH (18:00)
[2022-04-23] MEDS: Famotidine 20 MG Tab PO SCH (21:35)
[2022-04-23] MEDS: Sertraline 50 MG Tab PO SCH (21:35)
[2022-04-23] MEDS: Allopurinol 300 MG Tab PO SCH (21:35)
[2022-04-23] MEDS: Rosuvastatin 10 MG Tab PO SCH (21:35)
[2022-04-24] MEDS: metroNIDAZOLE/Normal Saline 500 MG in Premix Bag 1 BAG IV SCH ×2 (01:33→08:21)
[2022-04-24] MEDS: Pantoprazole 40 MG Tab.CR PO SCH (06:04)
[2022-04-24] MEDS: Cholecalciferol (Vitamin D3) 25 MCG Tab PO SCH (08:18)
[2022-04-24] MEDS: Lisinopril 20 MG Tab PO SCH (08:18)
[2022-04-24] MEDS: Potassium Chloride 20 MEQ Tab.ER PO SCH (08:21)
[2022-04-24] MEDS: Furosemide 40 MG Tab PO SCH (08:21)
[2022-04-24] MEDS: Insulin Regular, Human 100 Units/ML 3 ML Vial SUBCUT SCH ×2 (08:23→12:46)
[2022-04-24] MEDS: Mometasone Furoate HFA 200 mcg/Puff 13 GM Inhaler INH SCH (09:44)
[2022-04-24 12:40] VITALS: BP 113/65; PULSE 65
== END 2022-04-24 13:15 | disposition home health service (06) | DRG 872 ==
LOC: JD.ED 11:51 → JD.MS 17:14
PROVIDERS: ADMIT Internal Medicine; ATTEND Internal Medicine
DX: A41.9 Sepsis, unspecified organism (principal); K57.32 Diverticulitis of large intestine without perforation or abscess without bleeding; I13.0 Hypertensive heart and chronic kidney disease with heart failure and stage 1 through stage 4 chronic kidney disease, or unspecified chronic kidney disease; N18.4 Chronic kidney disease, stage 4 (severe); I50.9 Heart failure, unspecified; I50.32 Chronic diastolic (congestive) heart failure; D63.1 Anemia in chronic kidney disease; E78.5 Hyperlipidemia, unspecified; E11.22 Type 2 diabetes mellitus with diabetic chronic kidney disease; I25.10 Atherosclerotic heart disease of native coronary artery without angina pectoris; E78.00 Pure hypercholesterolemia, unspecified; K59.09 Other constipation; J44.9 Chronic obstructive pulmonary disease, unspecified; K21.9 Gastro-esophageal reflux disease without esophagitis; I65.29 Occlusion and stenosis of unspecified carotid artery; E66.9 Obesity, unspecified; M10.9 Gout, unspecified; M81.0 Age-related osteoporosis without current pathological fracture; G89.29 Other chronic pain; M54.9 Dorsalgia, unspecified; F41.9 Anxiety disorder, unspecified; F32.A Depression, unspecified; K52.9 Noninfective gastroenteritis and colitis, unspecified; K44.9 Diaphragmatic hernia without obstruction or gangrene; M15.9 Polyosteoarthritis, unspecified; E83.42 Hypomagnesemia; J45.909 Unspecified asthma, uncomplicated; E11.42 Type 2 diabetes mellitus with diabetic polyneuropathy; D50.9 Iron deficiency anemia, unspecified; Z82.49 Family history of ischemic heart disease and other diseases of the circulatory system; Z88.0 Allergy status to penicillin; Z79.899 Other long term (current) drug therapy; Z86.718 Personal history of other venous thrombosis and embolism; Z79.01 Long term (current) use of anticoagulants; Z98.890 Other specified postprocedural states; Z95.5 Presence of coronary angioplasty implant and graft; Z90.710 Acquired absence of both cervix and uterus; Z98.49 Cataract extraction status, unspecified eye; Z83.3 Family history of diabetes mellitus; Z79.51 Long term (current) use of inhaled steroids; Z86.73 Personal history of transient ischemic attack (TIA), and cerebral infarction without residual deficits; Z68.28 Body mass index [BMI] 28.0-28.9, adult; Z91.040 Latex allergy status; Z91.018 Allergy to other foods
CPT/HCPCS: 36415; 71045; 74176; 80053; 81001; 83605; 85025; 86140; 87040 ×2; 94640; J1170; J1956; J2405; J3490 ×2; J7030 ×2; 80048; 82947; 83735; 85027; 85610; 87641; 94760; 94761; 97161-GP; 97166-GO; 99222; 99232; 99239; 99285; A9270-GY; J1644; J1815-GY; J3475; J7620-GY

== ENCOUNTER 2022-05-03 16:19 | Emergency (ER) | payer MEDICARE, MEDICAID ==
[2022-05-03 16:48] VITALS: BP 100/56; PULSE 72
[2022-05-03] MEDS ORDERED: Sodium Chloride 0.9% 10 ML Syringe FLUSH PRN (17:32)
[2022-05-03] MEDS ORDERED: Sodium Chloride 0.9% 1,000 ML IV SCH (17:45)
[2022-05-03 19:14] LABS: HEMOGLOBIN A1C 6.8 %
[2022-05-03] MEDS ORDERED: Insulin Regular, Human 100 Units/ML 3 ML Vial SUBCUT ONE (19:42)
[2022-05-03 20:26] LABS: CORONAVIRUS COVID-19 NAA NEGATIVE (NEGATIVE)
== END 2022-05-03 21:59 | disposition home or self-care (01) ==
LOC: JD.ED 16:19
DX: R55 Syncope and collapse (principal); E11.65 Type 2 diabetes mellitus with hyperglycemia; N28.9 Disorder of kidney and ureter, unspecified; I25.10 Atherosclerotic heart disease of native coronary artery without angina pectoris; I13.0 Hypertensive heart and chronic kidney disease with heart failure and stage 1 through stage 4 chronic kidney disease, or unspecified chronic kidney disease; I50.9 Heart failure, unspecified; N18.30 Chronic kidney disease, stage 3 unspecified; J44.9 Chronic obstructive pulmonary disease, unspecified; E11.9 Type 2 diabetes mellitus without complications; E78.00 Pure hypercholesterolemia, unspecified; E66.9 Obesity, unspecified; Z68.27 Body mass index [BMI] 27.0-27.9, adult; Z88.0 Allergy status to penicillin; Z91.040 Latex allergy status; Z91.018 Allergy to other foods; Z79.899 Other long term (current) drug therapy; Z20.822 Contact with and (suspected) exposure to COVID-19
CPT/HCPCS: 0241U; 36415; 71045; 80053; 81001; 82947; 83036; 83880; 84484; 85025; 87086; 93005; 96360; 99284; C1758; J1815; J3490; J7030

== ENCOUNTER 2022-05-05 14:35 | Inpatient (IN) | payer MEDICARE, MEDICAID ==
[2022-05-05] MEDS ORDERED: Sodium Chloride 0.9% 1,000 ML IV ONE (16:18)
[2022-05-05] MEDS ORDERED: Sodium Chloride 0.9% 10 ML Syringe FLUSH PRN ×2 (16:18→17:04)
[2022-05-05] MEDS ORDERED: Acetaminophen 325 MG Tab PO STA (16:21)
[2022-05-05] MEDS ORDERED: Ondansetron 4 MG/2 ML SDV IVPUSH ONE (16:24)
[2022-05-05 16:45] LABS: ESTIMATED GFR 23 mL/min (>60)
[2022-05-05] MEDS ORDERED: Ondansetron 4 MG Tab.DIS PO PRN (17:04)
[2022-05-05] MEDS ORDERED: Ondansetron 4 MG/2 ML SDV IV PRN (17:04)
[2022-05-05] MEDS ORDERED: Acetaminophen 325 MG Tab PO PRN (17:04)
[2022-05-05] MEDS ORDERED: Heparin Sodium 5,000 Units/ML Vial SUBCUT SCH (17:15)
[2022-05-05] MEDS ORDERED: Lactated Ringers 1,000 ML IV SCH (17:15)
[2022-05-05] MEDS ORDERED: cefTRIAXone 2 GM in Sodium Chloride 0.9% 100 ML IV SCH (17:15)
[2022-05-05 19:34] LABS: CORONAVIRUS COVID-19 NAA NEGATIVE (NEGATIVE)
[2022-05-05] MEDS ORDERED: Ondansetron 4 MG/2 ML SDV IVPUSH PRN (23:08)
[2022-05-05] MEDS ORDERED: Morphine 2 MG/ML SYRINGE IVPUSH PRN (23:09)
[2022-05-05] MEDS ORDERED: Sodium Chloride 0.9% 1,000 ML IV SCH (23:15)
[2022-05-06] MEDS ORDERED: Ondansetron 4 MG Tab.DIS PO PRN (08:52)
[2022-05-06] MEDS ORDERED: Lactated Ringers 1,000 ML IV SCH (09:00)
[2022-05-06] MEDS ORDERED: Heparin Sodium 5,000 Units/ML Vial SUBCUT SCH (09:00)
[2022-05-06] MEDS: Acetaminophen 325 MG Tab PO PRN ×2 (11:27→19:53)
[2022-05-06] MEDS ORDERED: Furosemide 20 MG/2 ML VIAL IVPUSH ONE (12:23)
[2022-05-06] MEDS ORDERED: Albuterol 6.7 GM Inhaler INH PRN (12:25)
[2022-05-06] MEDS: Albuterol/Ipratropium 3.0-0.5 MG/3 ML Neb Soln INH PRN ×2 (12:32→20:40)
[2022-05-06] MEDS ORDERED: Mometasone Furoate HFA 200 mcg/Puff 13 GM Inhaler INH ONE (12:45)
[2022-05-06] MEDS ORDERED: Nitroglycerin 0.4 MG Tab.SL SL PRN (13:05)
[2022-05-06] MEDS ORDERED: Calcium Carbonate 500 MG Tab.Chew CHEW PRN (13:05)
[2022-05-06] MEDS ORDERED: Bismuth Subsalicylate 262 MG/15 ML Susp 236 ML Bottle PO PRN (13:18)
[2022-05-06] MEDS: cefTRIAXone 2 GM in Sodium Chloride 0.9% 100 ML IV SCH (18:03)
[2022-05-06] MEDS: Famotidine 20 MG Tab PO SCH ×2 (19:58→21:03)
[2022-05-06] MEDS: Allopurinol 300 MG Tab PO SCH ×2 (19:58→21:04)
[2022-05-06] MEDS: Sertraline 50 MG Tab PO SCH (19:59)
[2022-05-06] MEDS: Mometasone Furoate HFA 200 mcg/Puff 13 GM Inhaler INH SCH (20:38)
[2022-05-06] MEDS: Carboxymethylcellulose Sodium 1% Ophth Gel 15 ML Bottle EYEBOTH SCH (21:03)
[2022-05-07] MEDS: Pantoprazole 40 MG Tab.CR PO SCH (05:53)
[2022-05-07] MEDS: Mometasone Furoate HFA 200 mcg/Puff 13 GM Inhaler INH SCH ×2 (08:04→20:09)
[2022-05-07] MEDS: Lisinopril 20 MG Tab PO SCH (08:23)
[2022-05-07] MEDS: Furosemide 40 MG Tab PO SCH (08:23)
[2022-05-07] MEDS: Carboxymethylcellulose Sodium 1% Ophth Gel 15 ML Bottle EYEBOTH SCH ×2 (08:24→20:53)
[2022-05-07] MEDS: Ferrous Sulfate 324 MG Tab.EC PO SCH (08:35)
[2022-05-07] MEDS ORDERED: Ferrous Sulfate 324 MG Tab.EC PO SCH (09:00)
[2022-05-07] MEDS ORDERED: Non-Formulary Medication 1 Each (Warfarin 1 MG Tablet) PO SCH (09:00)
[2022-05-07] MEDS: cefTRIAXone 2 GM in Sodium Chloride 0.9% 100 ML IV SCH (17:10)
[2022-05-07] MEDS ORDERED: Warfarin Sliding Scale PO SCH (18:00)
[2022-05-07] MEDS: Sertraline 50 MG Tab PO SCH (20:51)
[2022-05-07] MEDS: Acetaminophen 325 MG Tab PO PRN (20:51)
[2022-05-07] MEDS: Allopurinol 300 MG Tab PO SCH (20:51)
[2022-05-07] MEDS: Famotidine 20 MG Tab PO SCH (20:51)
[2022-05-08] MEDS: Pantoprazole 40 MG Tab.CR PO SCH (05:08)
[2022-05-08] MEDS: Mometasone Furoate HFA 200 mcg/Puff 13 GM Inhaler INH SCH ×2 (08:24→20:07)
[2022-05-08] MEDS: Lisinopril 20 MG Tab PO SCH (08:45)
[2022-05-08] MEDS: metroNIDAZOLE 500 MG Tab PO SCH ×3 (08:46→23:55)
[2022-05-08] MEDS: Levofloxacin 750 MG Tab PO SCH (08:46)
[2022-05-08] MEDS: Carboxymethylcellulose Sodium 1% Ophth Gel 15 ML Bottle EYEBOTH SCH ×2 (08:47→20:28)
[2022-05-08] MEDS: Furosemide 40 MG Tab PO SCH (08:47)
[2022-05-08] MEDS ORDERED: Sodium Chloride 0.9% 500 ML IV ONE (13:14)
[2022-05-08] MEDS: Allopurinol 300 MG Tab PO SCH (20:27)
[2022-05-08] MEDS: Sertraline 50 MG Tab PO SCH (20:27)
[2022-05-08] MEDS: Famotidine 20 MG Tab PO SCH (20:27)
[2022-05-09] MEDS: Pantoprazole 40 MG Tab.CR PO SCH (06:26)
[2022-05-09] MEDS: Mometasone Furoate HFA 200 mcg/Puff 13 GM Inhaler INH SCH ×2 (08:10→20:02)
[2022-05-09] MEDS: Furosemide 40 MG Tab PO SCH (08:58)
[2022-05-09] MEDS: metroNIDAZOLE 500 MG Tab PO SCH ×2 (08:59→17:19)
[2022-05-09] MEDS: Lisinopril 20 MG Tab PO SCH (09:00)
[2022-05-09] MEDS: Carboxymethylcellulose Sodium 1% Ophth Gel 15 ML Bottle EYEBOTH SCH ×2 (09:00→20:25)
[2022-05-09] MEDS: Sertraline 50 MG Tab PO SCH (20:25)
[2022-05-09] MEDS: Allopurinol 300 MG Tab PO SCH (20:25)
[2022-05-09] MEDS: Famotidine 20 MG Tab PO SCH (20:25)
[2022-05-10] MEDS: metroNIDAZOLE 500 MG Tab PO SCH ×3 (00:49→17:07)
[2022-05-10] MEDS: Pantoprazole 40 MG Tab.CR PO SCH (06:08)
[2022-05-10] MEDS: Mometasone Furoate HFA 200 mcg/Puff 13 GM Inhaler INH SCH ×2 (08:19→20:15)
[2022-05-10] MEDS: Furosemide 40 MG Tab PO SCH (08:31)
[2022-05-10] MEDS: Lisinopril 20 MG Tab PO SCH (08:31)
[2022-05-10] MEDS: Levofloxacin 750 MG Tab PO SCH (08:31)
[2022-05-10] MEDS: Ferrous Sulfate 324 MG Tab.EC PO SCH (08:31)
[2022-05-10] MEDS: Carboxymethylcellulose Sodium 1% Ophth Gel 15 ML Bottle EYEBOTH SCH ×2 (09:30→20:00)
[2022-05-10] MEDS ORDERED: Warfarin 3 MG Tab PO SCH (18:00)
[2022-05-10] MEDS: Allopurinol 300 MG Tab PO SCH (20:00)
[2022-05-10] MEDS: Famotidine 20 MG Tab PO SCH (20:00)
[2022-05-10] MEDS: Sertraline 50 MG Tab PO SCH (20:00)
[2022-05-11] MEDS: metroNIDAZOLE 500 MG Tab PO SCH ×2 (00:34→08:36)
[2022-05-11] MEDS: Pantoprazole 40 MG Tab.CR PO SCH (05:35)
[2022-05-11] MEDS: Mometasone Furoate HFA 200 mcg/Puff 13 GM Inhaler INH SCH (08:30)
[2022-05-11] MEDS: Furosemide 40 MG Tab PO SCH (08:36)
[2022-05-11] MEDS: Lisinopril 20 MG Tab PO SCH (08:36)
[2022-05-11] MEDS: Carboxymethylcellulose Sodium 1% Ophth Gel 15 ML Bottle EYEBOTH SCH (08:36)
[2022-05-11 13:11] VITALS: BP 120/88; PULSE 66
== END 2022-05-11 13:08 | DRG 872 ==
LOC: JD.ED 14:35 → JD.MS 17:04 → UNDOADMIN 17:04 → JD.MS 21:29 → UNDODISIN 05-11 13:08
PROVIDERS: ADMIT Hospitalist; ATTEND Hospitalist
DX: A41.9 Sepsis, unspecified organism (principal); K57.32 Diverticulitis of large intestine without perforation or abscess without bleeding; I50.32 Chronic diastolic (congestive) heart failure; I13.0 Hypertensive heart and chronic kidney disease with heart failure and stage 1 through stage 4 chronic kidney disease, or unspecified chronic kidney disease; Z66 Do not resuscitate; N17.9 Acute kidney failure, unspecified; Z20.822 Contact with and (suspected) exposure to COVID-19; I25.10 Atherosclerotic heart disease of native coronary artery without angina pectoris; J44.9 Chronic obstructive pulmonary disease, unspecified; K21.9 Gastro-esophageal reflux disease without esophagitis; N18.30 Chronic kidney disease, stage 3 unspecified; M81.0 Age-related osteoporosis without current pathological fracture; M19.90 Unspecified osteoarthritis, unspecified site; E11.40 Type 2 diabetes mellitus with diabetic neuropathy, unspecified; E78.5 Hyperlipidemia, unspecified; E11.65 Type 2 diabetes mellitus with hyperglycemia; F41.9 Anxiety disorder, unspecified; F32.A Depression, unspecified; E11.22 Type 2 diabetes mellitus with diabetic chronic kidney disease; Z98.890 Other specified postprocedural states; Z83.3 Family history of diabetes mellitus; Z91.040 Latex allergy status; Z88.0 Allergy status to penicillin; Z91.018 Allergy to other foods; Z86.73 Personal history of transient ischemic attack (TIA), and cerebral infarction without residual deficits; Z90.710 Acquired absence of both cervix and uterus; Z86.718 Personal history of other venous thrombosis and embolism; Z79.01 Long term (current) use of anticoagulants; Z79.899 Other long term (current) drug therapy; Z86.711 Personal history of pulmonary embolism; Z82.49 Family history of ischemic heart disease and other diseases of the circulatory system; Z87.891 Personal history of nicotine dependence; Z98.41 Cataract extraction status, right eye; Z98.42 Cataract extraction status, left eye
CPT/HCPCS: 0241U; 36415; 70450; 74176; 80048; 80053; 81001; 85025; 85610; 87040; 94640; 94760; 94761; 96361; 96374; 97110; 97161; 97166; 71045; 71045-26; 83605; 83690; 83735; 84484; 85007; 85027; 86140; 99222; 99232; 99239; 99285; 99285-25; A9270-GY; J0696; J1644; J1940; J2405; J3490; J7030; J7120; J7620-GY; U0002

== ENCOUNTER 2022-08-28 19:50 | Emergency (ER) | payer MEDICARE, MEDICAID ==
[2022-08-28 20:32] LABS: BASOPHILS ABSOLUTE AUTO 0.02 K/mm3 (0.01-0.08); BASOPHILS PERCENT AUTO 0.1 % (0.1-1.2); EOSINOPHILS ABSOLUTE AUTO 0.04 K/mm3 (0.04-0.36); EOSINOPHILS PERCENT AUTO 0.3 (0.7-5.8); HEMATOCRIT 42.1 % (34.1-44.9); IMMATURE GRAN ABSOLUTE AUTO 0.04 K/mm3 (0.00-0.10); IMMATURE GRAN PERCENT AUTO 0.3 % (<=1.0); LYMPHOCYTES ABSOLUTE AUTO 1.89 K/mm3 (1.18-3.74); LYMPHOCYTES PERCENT AUTO 13.6 % (19.3-51.7); MEAN CORPUSCULAR HEMOGLOBIN 28.9 pg (25.6-32.2); MEAN CORPUSCULAR HGB CONC 30.9 g/dl (32.2-35.5); MEAN CORPUSCULAR VOLUME 93.6 fl (79.4-94.8); MEAN PLATELET VOLUME 10.7 fl (9.4-12.3); MONOCYTES ABSOLUTE AUTO 1.47 K/mm3 (0.24-0.36); MONOCYTES PERCENT AUTO 10.6 % (4.7-12.5); NEUTROPHILS ABSOLUTE AUTO 10.41 K/mm3 (1.56-6.13); NEUTROPHILS PERCENT AUTO 75.1 % (34.0-71.1); PLATELET COUNT,PLT 260 K/mm3 (182-369); WHITE BLOOD CELL COUNT,WBC 13.87 K/mm3 (3.98-10.04)
[2022-08-28 20:43] LABS: APPEARANCE,URINE CLEAR (Clear); BILIRUBIN,URINE NEGATIVE (Negative); COLOR,URINE YELLOW (Yellow); GLUCOSE,URINE NEGATIVE (Negative); KETONES,URINE NEGATIVE (Negative); LEUKOCYTE ESTERASE,URINE NEGATIVE (Negative); NITRITE,URINE NEGATIVE (Negative); OCCULT BLOOD,URINE NEGATIVE (Negative); PH,URINE 6.5 (5.0-8.0); PROTEIN,URINE 2+ (Negative); UROBILINOGEN,URINE 0.2 (0.2-1.0)
[2022-08-28 20:48] LABS: INR 2.38; PROTHROMBIN TIME 23.9 SECONDS (9.7-12.0)
[2022-08-28 20:53] LABS: BACTERIA,URINE FEW /hpf (FEW); MUCUS,URINE FEW /hpf (FEW); RBC,URINE 0-5 /hpf (0-5); SQUAMOUS EPITHELIAL CELLS,UR NOT SEEN /hpf (0-5); WBC,URINE 0-5 /hpf (0-5)
[2022-08-28 21:05] LABS: A/G RATIO 0.6 (1-2); ALBUMIN 2.6 g/dl (3.4-5.0); ANION GAP 15.1 (5-15); BILIRUBIN TOTAL 0.6 mg/dL (0.2-1.0); BUN/CREATININE RATIO 12.7 (14-18); CREATININE 1.5 mg/dL (0.55-1.02); POTASSIUM,K 4.1 mEq/L (3.5-5.1); PROTEIN TOTAL,TP 6.9 g/dl (6.4-8.2)
[2022-08-28] MEDS ORDERED: Iopamidol 612 MG/ML 100 ML Bottle IVPUSH ONE (21:27)
[2022-08-28] MEDS ORDERED: Piperacillin/Tazobactam 4.5 GM in Sodium Chloride 0.9% 100 ML IV ONE (21:37)
[2022-08-28] MEDS ORDERED: metroNIDAZOLE/Normal Saline 500 MG in Premix Bag 1 BAG IV SCH (21:45)
[2022-08-29 00:17] VITALS: BP 106/55; PULSE 84
== END 2022-08-29 00:04 | disposition home or self-care (01) ==
LOC: JD.ED 19:50
DX: K57.32 Diverticulitis of large intestine without perforation or abscess without bleeding (principal); I25.10 Atherosclerotic heart disease of native coronary artery without angina pectoris; I13.0 Hypertensive heart and chronic kidney disease with heart failure and stage 1 through stage 4 chronic kidney disease, or unspecified chronic kidney disease; E11.22 Type 2 diabetes mellitus with diabetic chronic kidney disease; N18.30 Chronic kidney disease, stage 3 unspecified; I50.9 Heart failure, unspecified; K21.9 Gastro-esophageal reflux disease without esophagitis; J44.9 Chronic obstructive pulmonary disease, unspecified; M19.90 Unspecified osteoarthritis, unspecified site; E11.40 Type 2 diabetes mellitus with diabetic neuropathy, unspecified; E66.9 Obesity, unspecified; Z68.27 Body mass index [BMI] 27.0-27.9, adult; Z86.16 Personal history of COVID-19; Z79.01 Long term (current) use of anticoagulants; Z88.0 Allergy status to penicillin; Z91.040 Latex allergy status; Z91.018 Allergy to other foods; Z79.899 Other long term (current) drug therapy
CPT/HCPCS: 36415; 74177; 80053; 81001; 83605; 83690; 85025; 85610; 87040; 93005; 96365; 96367; 99285; J2543; J3490; Q9967; 93010; 99284

== ENCOUNTER 2022-09-16 03:27 | Emergency (ER) | payer MEDICARE, MEDICAID ==
[2022-09-16 04:08] VITALS: BP 103/77; PULSE 69
== END 2022-09-16 04:06 | disposition other institution (70) ==
LOC: JD.ED 03:27
DX: Z04.3 Encounter for examination and observation following other accident (principal); I13.0 Hypertensive heart and chronic kidney disease with heart failure and stage 1 through stage 4 chronic kidney disease, or unspecified chronic kidney disease; E11.22 Type 2 diabetes mellitus with diabetic chronic kidney disease; N18.30 Chronic kidney disease, stage 3 unspecified; I50.9 Heart failure, unspecified; E78.00 Pure hypercholesterolemia, unspecified; K21.9 Gastro-esophageal reflux disease without esophagitis; I25.10 Atherosclerotic heart disease of native coronary artery without angina pectoris; E66.9 Obesity, unspecified; Z68.26 Body mass index [BMI] 26.0-26.9, adult; Z95.5 Presence of coronary angioplasty implant and graft; Z79.899 Other long term (current) drug therapy; Z79.01 Long term (current) use of anticoagulants; Z91.018 Allergy to other foods; Z88.0 Allergy status to penicillin; Z91.040 Latex allergy status; Z86.16 Personal history of COVID-19
CPT/HCPCS: 99281; 99284

== ENCOUNTER 2022-10-06 08:27 | Inpatient (IN) | payer MEDICARE, MEDICAID ==
[2022-10-06] MEDS ORDERED: Sodium Chloride 0.9% 10 ML Syringe FLUSH PRN (09:05)
[2022-10-06] MEDS ORDERED: Ondansetron 4 MG/2 ML SDV IVPUSH ONE (09:05)
[2022-10-06] MEDS ORDERED: HYDROmorphone 0.5 MG/0.5 ML Syringe IVPUSH ONE (09:07)
[2022-10-06] MEDS ORDERED: Sodium Chloride 0.9% 1,000 ML IV ONE (09:24)
[2022-10-06 09:38] LABS: BASOPHILS PERCENT AUTO 0.2 % (0.0-1.0); EOSINOPHILS PERCENT AUTO 0.1 % (0.0-6.0); HEMATOCRIT 35.8 % (37.0-47.0); HEMOGLOBIN 11.1 gm/dl (12.0-16.0); IMMATURE GRAN ABSOLUTE AUTO 0.07 K/mm3 (0.00-0.05); IMMATURE GRAN PERCENT AUTO 0.5 % (0.0-0.4); LYMPHOCYTES ABSOLUTE AUTO 1.2 K/mm3 (1.0-4.8); LYMPHOCYTES PERCENT AUTO 8.9 % (24.0-44.0); MEAN CORPUSCULAR HEMOGLOBIN 29.1 pg (28.0-32.0); MONOCYTES ABSOLUTE AUTO 1.2 K/mm3 (0.0-0.8); MONOCYTES PERCENT AUTO 8.7 % (0.0-8.0); NEUTROPHILS PERCENT AUTO 81.6 % (41.0-71.0); PLATELET COUNT,PLT 200 K/mm3 (150-400); RED BLOOD CELL COUNT 3.81 M/mm3 (4.10-5.30); WHITE BLOOD CELL COUNT,WBC 13.52 K/mm3 (3.9-11.3)
[2022-10-06 09:57] LABS: INR 2.79; PROTHROMBIN TIME 27.7 SECONDS (9.7-12.0)
[2022-10-06 09:59] LABS: A/G RATIO 0.6 (1-2); ALBUMIN 2.2 g/dl (3.4-5.0); ANION GAP 10.7 (5-15); BILIRUBIN TOTAL 0.7 mg/dL (0.2-1.0); CREATININE 1.5 mg/dL (0.55-1.02); EST CRCL DRUG DOSING (CG) 26.47 mL/min; POTASSIUM,K 4.7 mEq/L (3.5-5.1); PROTEIN TOTAL,TP 6.2 g/dl (6.4-8.2)
[2022-10-06] MEDS ORDERED: cefTRIAXone 2 GM in Sodium Chloride 0.9% 100 ML IV ONE (10:32)
[2022-10-06] MEDS ORDERED: Iopamidol 612 MG/ML 100 ML Bottle IVPUSH ONE (10:45)
[2022-10-06] MEDS ORDERED: Sodium Chloride 0.9% 10 ML Syringe FLUSH ONE (10:45)
[2022-10-06 10:50] LABS: LACTIC ACID 1.6 mmol/L (0.4-2.0)
[2022-10-06 12:18] LABS: APPEARANCE,URINE SLT CLOUDY (Clear); BILIRUBIN,URINE NEGATIVE (Negative); COLOR,URINE YELLOW (Yellow); GLUCOSE,URINE NEGATIVE (Negative); KETONES,URINE NEGATIVE (Negative); LEUKOCYTE ESTERASE,URINE NEGATIVE (Negative); NITRITE,URINE NEGATIVE (Negative); OCCULT BLOOD,URINE NEGATIVE (Negative); PH,URINE 5.5 (5.0-8.0); PROTEIN,URINE 2+ (Negative); UROBILINOGEN,URINE 0.2 (0.2-1.0)
[2022-10-06] MEDS ORDERED: metroNIDAZOLE/Normal Saline 500 MG in Premix Bag 1 BAG IV ONE (12:20)
[2022-10-06 12:33] LABS: BACTERIA,URINE FEW /hpf (FEW); HYALINE CASTS,URINE 0-5 /lpf (0-5); MUCUS,URINE FEW /hpf (FEW); RBC,URINE 0-5 /hpf (0-5); WBC,URINE 0-5 /hpf (0-5)
[2022-10-06] MEDS ORDERED: Sodium Chloride 0.9% 500 ML IV ONE ×2 (12:35→13:05)
[2022-10-06] MEDS ORDERED: Lactated Ringers 1,000 ML IV ONE (13:55)
[2022-10-06] MEDS ORDERED: HYDROmorphone 0.5 MG/0.5 ML Syringe IVPUSH PRN (15:04)
[2022-10-06] MEDS ORDERED: oxyCODONE 5 MG Tab PO PRN (15:04)
[2022-10-06] MEDS ORDERED: Docusate Sodium 100 MG Cap PO PRN (15:04)
[2022-10-06] MEDS ORDERED: Acetaminophen 325 MG Tab PO PRN (15:04)
[2022-10-06] MEDS ORDERED: Ondansetron 4 MG/2 ML SDV IV PRN (15:04)
[2022-10-06] MEDS ORDERED: Albuterol 0.083% 2.5 MG/3 ML Neb Soln NEB PRN (16:03)
[2022-10-06] MEDS ORDERED: Lactated Ringers 1,000 ML ONE (17:27)
[2022-10-06] MEDS: Allopurinol 300 MG Tab PO SCH (20:06)
[2022-10-06] MEDS: Sertraline 50 MG Tab PO SCH (20:06)
[2022-10-06] MEDS: Rosuvastatin 10 MG Tab PO SCH (20:06)
[2022-10-06] MEDS: Mometasone Furoate HFA 200 mcg/Puff 13 GM Inhaler INH SCH (20:52)
[2022-10-06] MEDS ORDERED: OLOPATADINE EYEBOTH SCH (21:00)
[2022-10-07] MEDS: Pantoprazole 40 MG Tab.CR PO SCH (05:08)
[2022-10-07 06:03] LABS: BASOPHILS PERCENT AUTO 0.5 % (0.0-1.0); EOSINOPHILS ABSOLUTE AUTO 0.1 K/mm3 (0.0-0.4); EOSINOPHILS PERCENT AUTO 0.9 % (0.0-6.0); HEMATOCRIT 32.9 % (37.0-47.0); HEMOGLOBIN 10.3 gm/dl (12.0-16.0); IMMATURE GRAN ABSOLUTE AUTO 0.02 K/mm3 (0.00-0.05); IMMATURE GRAN PERCENT AUTO 0.3 % (0.0-0.4); LYMPHOCYTES ABSOLUTE AUTO 1.3 K/mm3 (1.0-4.8); LYMPHOCYTES PERCENT AUTO 16.3 % (24.0-44.0); MEAN CORPUSCULAR HEMOGLOBIN 28.9 pg (28.0-32.0); MEAN CORPUSCULAR HGB CONC 31.3 g/dl (32.0-36.0); MEAN CORPUSCULAR VOLUME 92.4 fl (83.0-99.0); MEAN PLATELET VOLUME 10.7 fl (9.4-12.3); MONOCYTES PERCENT AUTO 12.8 % (0.0-8.0); NEUTROPHILS ABSOLUTE AUTO 5.5 K/mm3 (1.8-7.7); NEUTROPHILS PERCENT AUTO 69.2 % (41.0-71.0); PLATELET COUNT,PLT 169 K/mm3 (150-400); RED BLOOD CELL COUNT 3.56 M/mm3 (4.10-5.30); WHITE BLOOD CELL COUNT,WBC 7.97 K/mm3 (3.9-11.3)
[2022-10-07 06:24] LABS: ANION GAP 8.8 (5-15); C-REACTIVE PROTEIN 4.1 mg/dL (<1.0); CALCIUM 8.7 mg/dL (8.5-10.1); CREATININE 1.4 mg/dL (0.55-1.02); EST CRCL DRUG DOSING (CG) 28.36 mL/min; MAGNESIUM 1.6 mg/dL (1.8-2.4); POTASSIUM,K 3.8 mEq/L (3.5-5.1)
[2022-10-07 06:26] LABS: INR 3.67; PROTHROMBIN TIME 35.7 SECONDS (9.7-12.0)
[2022-10-07] MEDS ORDERED: Magnesium Sulfate/Water 2 GM in Premix Bag 1 BAG IV ONE (07:32)
[2022-10-07] MEDS: Mometasone Furoate HFA 200 mcg/Puff 13 GM Inhaler INH SCH ×2 (08:15→20:25)
[2022-10-07] MEDS: cefTRIAXone 2 GM in Sodium Chloride 0.9% 100 ML IV SCH (11:29)
[2022-10-07] MEDS ORDERED: Hyaluronidase, Human Recombinant 150 Units/1 ML SDV SUBCUT ONE (12:30)
[2022-10-07] MEDS ORDERED: Warfarin Sliding Scale PO SCH (18:00)
[2022-10-07] MEDS: Sertraline 50 MG Tab PO SCH (22:30)
[2022-10-07] MEDS: Allopurinol 300 MG Tab PO SCH (22:30)
[2022-10-07] MEDS: Rosuvastatin 10 MG Tab PO SCH (22:30)
[2022-10-08] MEDS: Pantoprazole 40 MG Tab.CR PO SCH (05:00)
[2022-10-08 06:25] LABS: BASOPHILS PERCENT AUTO 0.3 % (0.0-1.0); EOSINOPHILS PERCENT AUTO 0.5 % (0.0-6.0); HEMATOCRIT 29.8 % (37.0-47.0); HEMOGLOBIN 9.4 gm/dl (12.0-16.0); IMMATURE GRAN ABSOLUTE AUTO 0.03 K/mm3 (0.00-0.05); IMMATURE GRAN PERCENT AUTO 0.5 % (0.0-0.4); LYMPHOCYTES ABSOLUTE AUTO 1.3 K/mm3 (1.0-4.8); LYMPHOCYTES PERCENT AUTO 21.4 % (24.0-44.0); MEAN CORPUSCULAR HEMOGLOBIN 28.9 pg (28.0-32.0); MEAN CORPUSCULAR HGB CONC 31.5 g/dl (32.0-36.0); MEAN CORPUSCULAR VOLUME 91.7 fl (83.0-99.0); MEAN PLATELET VOLUME 10.3 fl (9.4-12.3); MONOCYTES ABSOLUTE AUTO 0.7 K/mm3 (0.0-0.8); NEUTROPHILS PERCENT AUTO 65.3 % (41.0-71.0); PLATELET COUNT,PLT 180 K/mm3 (150-400); RED BLOOD CELL COUNT 3.25 M/mm3 (4.10-5.30); WHITE BLOOD CELL COUNT,WBC 6.18 K/mm3 (3.9-11.3)
[2022-10-08 06:42] LABS: INR 3.55; PROTHROMBIN TIME 34.6 SECONDS (9.7-12.0)
[2022-10-08 06:48] LABS: ANION GAP 9.7 (5-15); BUN/CREATININE RATIO 6.9 (14-18); C-REACTIVE PROTEIN 2.9 mg/dL (<1.0); CALCIUM 8.8 mg/dL (8.5-10.1); CREATININE 1.3 mg/dL (0.55-1.02); EST CRCL DRUG DOSING (CG) 30.54 mL/min; MAGNESIUM 2.2 mg/dL (1.8-2.4); POTASSIUM,K 3.7 mEq/L (3.5-5.1)
[2022-10-08] MEDS: Mometasone Furoate HFA 200 mcg/Puff 13 GM Inhaler INH SCH ×2 (09:19→20:37)
[2022-10-08] MEDS: Furosemide 20 MG Tab PO SCH (09:40)
[2022-10-08] MEDS: cefTRIAXone 2 GM in Sodium Chloride 0.9% 100 ML IV SCH (09:41)
[2022-10-08] MEDS ORDERED: Warfarin Sliding Scale PO SCH (18:00)
[2022-10-08] MEDS: Allopurinol 300 MG Tab PO SCH (20:55)
[2022-10-08] MEDS: Rosuvastatin 10 MG Tab PO SCH (20:55)
[2022-10-08] MEDS: Sertraline 50 MG Tab PO SCH (20:56)
[2022-10-09] MEDS: Pantoprazole 40 MG Tab.CR PO SCH (05:58)
[2022-10-09 06:14] LABS: BASOPHILS PERCENT AUTO 0.7 % (0.0-1.0); EOSINOPHILS PERCENT AUTO 0.7 % (0.0-6.0); HEMATOCRIT 30.8 % (37.0-47.0); HEMOGLOBIN 9.7 gm/dl (12.0-16.0); IMMATURE GRAN ABSOLUTE AUTO 0.02 K/mm3 (0.00-0.05); IMMATURE GRAN PERCENT AUTO 0.3 % (0.0-0.4); LYMPHOCYTES ABSOLUTE AUTO 1.5 K/mm3 (1.0-4.8); LYMPHOCYTES PERCENT AUTO 24.7 % (24.0-44.0); MEAN CORPUSCULAR HEMOGLOBIN 28.9 pg (28.0-32.0); MEAN CORPUSCULAR HGB CONC 31.5 g/dl (32.0-36.0); MEAN CORPUSCULAR VOLUME 91.7 fl (83.0-99.0); MEAN PLATELET VOLUME 10.7 fl (9.4-12.3); MONOCYTES ABSOLUTE AUTO 0.6 K/mm3 (0.0-0.8); MONOCYTES PERCENT AUTO 10.2 % (0.0-8.0); NEUTROPHILS ABSOLUTE AUTO 3.7 K/mm3 (1.8-7.7); NEUTROPHILS PERCENT AUTO 63.4 % (41.0-71.0); PLATELET COUNT,PLT 193 K/mm3 (150-400); RED BLOOD CELL COUNT 3.36 M/mm3 (4.10-5.30)
[2022-10-09 06:30] LABS: INR 2.74; PROTHROMBIN TIME 27.2 SECONDS (9.7-12.0)
[2022-10-09 06:32] LABS: ANION GAP 9.4 (5-15); BUN/CREATININE RATIO 5.4 (14-18); C-REACTIVE PROTEIN 2.3 mg/dL (<1.0); CALCIUM 8.9 mg/dL (8.5-10.1); CREATININE 1.3 mg/dL (0.55-1.02); EST CRCL DRUG DOSING (CG) 30.54 mL/min; POTASSIUM,K 3.4 mEq/L (3.5-5.1)
[2022-10-09] MEDS ORDERED: Potassium Chloride 20 MEQ Tab.ER PO ONE (07:03)
[2022-10-09] MEDS: Furosemide 20 MG Tab PO SCH (08:17)
[2022-10-09] MEDS: Mometasone Furoate HFA 200 mcg/Puff 13 GM Inhaler INH SCH (08:47)
[2022-10-09] MEDS: cefTRIAXone 2 GM in Sodium Chloride 0.9% 100 ML IV SCH (11:26)
[2022-10-09 13:57] VITALS: BP 108/74; PULSE 69
== END 2022-10-09 13:56 | disposition home or self-care (01) | DRG 391 ==
LOC: JD.ED 08:27 → JD.MS 12:52
PROVIDERS: ADMIT Hospitalist; ATTEND Hospitalist
DX: K57.92 Diverticulitis of intestine, part unspecified, without perforation or abscess without bleeding (principal); A41.9 Sepsis, unspecified organism; R65.21 Severe sepsis with septic shock; I13.10 Hypertensive heart and chronic kidney disease without heart failure, with stage 1 through stage 4 chronic kidney disease, or unspecified chronic kidney disease; J44.9 Chronic obstructive pulmonary disease, unspecified; I13.0 Hypertensive heart and chronic kidney disease with heart failure and stage 1 through stage 4 chronic kidney disease, or unspecified chronic kidney disease; Z66 Do not resuscitate; H54.7 Unspecified visual loss; E11.22 Type 2 diabetes mellitus with diabetic chronic kidney disease; N18.30 Chronic kidney disease, stage 3 unspecified; F41.9 Anxiety disorder, unspecified; F32.A Depression, unspecified; M81.0 Age-related osteoporosis without current pathological fracture; I50.9 Heart failure, unspecified; E11.40 Type 2 diabetes mellitus with diabetic neuropathy, unspecified; E78.5 Hyperlipidemia, unspecified; I25.10 Atherosclerotic heart disease of native coronary artery without angina pectoris; K21.9 Gastro-esophageal reflux disease without esophagitis; Z88.0 Allergy status to penicillin; Z91.040 Latex allergy status; Z91.018 Allergy to other foods; E66.9 Obesity, unspecified; Z90.710 Acquired absence of both cervix and uterus; Z99.81 Dependence on supplemental oxygen; Z98.49 Cataract extraction status, unspecified eye; Z98.890 Other specified postprocedural states; Z87.891 Personal history of nicotine dependence; Z79.01 Long term (current) use of anticoagulants; Z79.899 Other long term (current) drug therapy; Z86.73 Personal history of transient ischemic attack (TIA), and cerebral infarction without residual deficits; Z86.718 Personal history of other venous thrombosis and embolism; Z95.5 Presence of coronary angioplasty implant and graft
CPT/HCPCS: 36415; 74177; 80053; 81001; 83605; 83690; 85025; 85610; 87040 ×2; 96361; 96365; 96366; 96375; 99285; J0696; J1170; J2405; J3490 ×2; J7030; Q9967; 80048; 83735; 86140; 87641; 94640; 94760; 94761; 97112-GP; 97116-GP; 97161-GP; 97162-GP; 99223; 99231; 99232; 99239; A9270-GY; J3475; J7120

== ENCOUNTER 2022-11-19 12:40 | Emergency (ER) | payer MEDICARE, MEDICAID ==
[2022-11-19] MEDS ORDERED: Sodium Chloride 0.9% 10 ML Syringe FLUSH PRN (12:54)
[2022-11-19 13:31] LABS: BASOPHILS PERCENT AUTO 0.1 % (0.0-1.0); HEMATOCRIT 32.6 % (37.0-47.0); HEMOGLOBIN 10.4 gm/dl (12.0-16.0); IMMATURE GRAN PERCENT AUTO 1.6 % (0.0-0.4); LYMPHOCYTES PERCENT AUTO 4.2 % (24.0-44.0); MEAN CORPUSCULAR HEMOGLOBIN 28.7 pg (28.0-32.0); MEAN CORPUSCULAR HGB CONC 31.9 g/dl (32.0-36.0); MEAN CORPUSCULAR VOLUME 90.1 fl (83.0-99.0); MEAN PLATELET VOLUME 10.7 fl (9.4-12.3); MONOCYTES ABSOLUTE AUTO 1.7 K/mm3 (0.0-0.8); MONOCYTES PERCENT AUTO 6.9 % (0.0-8.0); NEUTROPHILS ABSOLUTE AUTO 21.3 K/mm3 (1.8-7.7); NEUTROPHILS PERCENT AUTO 87.2 % (41.0-71.0); PLATELET COUNT,PLT 263 K/mm3 (150-400); RED BLOOD CELL COUNT 3.62 M/mm3 (4.10-5.30)
[2022-11-19] MEDS: Lactated Ringers 1,000 ML IV ONE ×2 (13:40→16:49)
[2022-11-19 13:49] LABS: A/G RATIO 0.3 (1-2); ALBUMIN 1.6 g/dl (3.4-5.0); ANION GAP 13.9 (5-15); BILIRUBIN TOTAL 0.5 mg/dL (0.2-1.0); CALCIUM 9.3 mg/dL (8.5-10.1); EST CRCL DRUG DOSING (CG) 15.27 mL/min; POTASSIUM,K 2.9 mEq/L (3.5-5.1); PROTEIN TOTAL,TP 6.3 g/dl (6.4-8.2)
[2022-11-19 13:54] LABS: CORONAVIRUS COVID-19 NAA NEGATIVE (NEGATIVE); INFLUENZA A NAA NEGATIVE (NEGATIVE)
[2022-11-19] MEDS ORDERED: Iopamidol 612 MG/ML 100 ML Bottle IVPUSH ONE ×2 (14:04→14:17)
[2022-11-19] MEDS ORDERED: NS with KCl 40mEq 1,000 ML IV SCH (14:15)
[2022-11-19 14:19] LABS: C-REACTIVE PROTEIN 24.8 mg/dL (<1.0)
[2022-11-19 14:21] LABS: LACTIC ACID 2.3 mmol/L (0.4-2.0)
[2022-11-19 14:23] LABS: BUN/CREATININE RATIO 11.2 (14-18); CREATININE 2.6 mg/dL (0.55-1.02)
[2022-11-19 14:26] LABS: SLIDE REVIEW ABNORMAL SMEAR
[2022-11-19] MEDS ORDERED: Levofloxacin/Dextrose 5%-Water 750 MG in Premix Bag 1 BAG IV ONE (14:39)
[2022-11-19 15:04] LABS: APPEARANCE,URINE CLEAR (Clear); BILIRUBIN,URINE NEGATIVE (Negative); COLOR,URINE YELLOW (Yellow); GLUCOSE,URINE NEGATIVE (Negative); KETONES,URINE NEGATIVE (Negative); LEUKOCYTE ESTERASE,URINE NEGATIVE (Negative); NITRITE,URINE NEGATIVE (Negative); OCCULT BLOOD,URINE 2+ (Negative); PROTEIN,URINE 2+ (Negative); UROBILINOGEN,URINE 0.2 (0.2-1.0)
[2022-11-19 15:15] LABS: INR 6.44
[2022-11-19 15:27] LABS: AMORPHOUS SEDIMENT,URINE FEW /hpf (NOT SEEN); BACTERIA,URINE FEW /hpf (FEW); MUCUS,URINE FEW /hpf (FEW); SQUAMOUS EPITHELIAL CELLS,UR 0-5 /hpf (0-5); WBC,URINE 0-5 /hpf (0-5)
[2022-11-19] MEDS ORDERED: HYDROmorphone 0.5 MG/0.5 ML Syringe IVPUSH ONE (16:37)
[2022-11-19] MEDS ORDERED: Naloxone 0.4 MG/ML SDV IVPUSH PRN (16:37)
[2022-11-19] MEDS ORDERED: Lactated Ringers 1,000 ML ONE (16:40)
[2022-11-19 17:05] VITALS: BP 85/43; PULSE 72
== END 2022-11-19 17:05 ==
LOC: JD.ED 12:40
DX: K57.40 Diverticulitis of both small and large intestine with perforation and abscess without bleeding (principal); I25.10 Atherosclerotic heart disease of native coronary artery without angina pectoris; E78.00 Pure hypercholesterolemia, unspecified; I13.0 Hypertensive heart and chronic kidney disease with heart failure and stage 1 through stage 4 chronic kidney disease, or unspecified chronic kidney disease; E11.22 Type 2 diabetes mellitus with diabetic chronic kidney disease; N18.30 Chronic kidney disease, stage 3 unspecified; I50.9 Heart failure, unspecified; J44.9 Chronic obstructive pulmonary disease, unspecified; K21.9 Gastro-esophageal reflux disease without esophagitis; M19.90 Unspecified osteoarthritis, unspecified site; E11.40 Type 2 diabetes mellitus with diabetic neuropathy, unspecified; E66.9 Obesity, unspecified; Z68.24 Body mass index [BMI] 24.0-24.9, adult; Z86.16 Personal history of COVID-19; Z79.01 Long term (current) use of anticoagulants; Z88.0 Allergy status to penicillin; Z91.040 Latex allergy status; Z91.018 Allergy to other foods; Z79.899 Other long term (current) drug therapy; Z20.822 Contact with and (suspected) exposure to COVID-19
CPT/HCPCS: 0240U; 36415; 74177; 80053; 81001; 83605; 83690; 84145; 85025; 85610; 86140; 87040; 93005; 96361; 96365; 96366; 96368; 96375; 99285; J1170; J1956; J3480; J7120; Q9967